=== PATIENT | female | born 1950 | race Caucasian/White ===

== ENCOUNTER → 2018-05-24 12:31 | Outpatient (CLI) | payer MEDICARE, OTHER, SELFPAY ==
--- NOTE | 2018-05-24 12:42 | BI_ITS ---
MAMMOGRAPHY - BILATERAL SCREENING REASON FOR EXAM: Female, 67 years old. Routine annual screening examination. PERTINENT HISTORY: Non-contributory. Nonspecific left breast pain. TECHNIQUE: Digital bilateral breast theo (3D mammographic acquisition) in the CC and MLO projections. 2-D mediolateral oblique (MLO) and craniocaudad (CC) views of both breasts were obtained. CAD: Full Field Digital Mammography with Computer Added Detection was performed. COMPARISON: Comparison is made with prior study dated February 09, 2017. FINDINGS: Breast Composition: The breasts are heterogeneously dense, which may obscure small masses. There are no dominant masses or suspicious calcifications. Benign appearing bilateral axillary lymph nodes. No other significant abnormalities are identified. There has been no significant change since the prior study. BI/SCREENING MAMM (CAD), BILAT IMPRESSION: Stable bilateral screening mammogram. Yearly follow-up mammogram recommended. (A) ASSESSMENT CATEGORY: BIRADS Category 2: Benign. A letter regarding these results will be sent to the patient by the facility within 30 days. Approximately 10% of breast cancers are not detected by mammography. A normal mammogram should not delay biopsy of a clinically suspicious abnormality. [id number] Electronically Signed: Kei Falcon MD at 13:41 EDT Tel [phone], Service support ,
== END ==
PROVIDERS: Family Provider Preventive Medicine Occupational Medicine; PCP Preventive Medicine Occupational Medicine; Visit Provider Preventive Medicine Occupational Medicine
DX: Z12.31 Encounter for screening mammogram for malignant neoplasm of breast (principal)
CPT/HCPCS: 77063; 77067

== ENCOUNTER → 2018-05-31 09:16 | Outpatient (CLI) | payer MEDICARE, OTHER, SELFPAY ==
--- NOTE | 2018-05-31 09:29 | BD_ITS ---
STUDY: DUAL ENERGY X-RAY ABSORPTIOMETRY / DXA REASON FOR EXAM: Female, 67 years old. Early menopause. Loss of height. TECHNIQUE: Bone Mineral Density (BMD) measurements of lumbar spine and bilateral hips were obtained. COMPARISON: Comparison is made with prior study dated December 05, 2013. FINDINGS: Lumbar Spine (L1-L4): g/cm2 (0.872) / T-score (-2.7) / Z-score (-1.1) Findings are suggestive of osteoporosis with a high fracture risk. Increased kyphosis. Left Femur Total: g/cm2 (0.787) / T-score (-1.8) / Z-score (-0.4) Left Femoral Neck: g/cm2 (0.772) / T-score (-1.9) / Z-score (-0.3) Right Femur Total: g/cm2 (0.772) / T-score (-1.9) / Z-score (-0.5) Right Femoral Neck: g/cm2 (0.716) / T-score (-2.3) / Z-score (0.7) The T-Scores on the most recent prior examination were: Lumbar Spine (L1-L4): There has been improvement of bone density since the previous examination. Left Femur Total: which represents an improvement of 2.3%. Right Femur Total: which represents a worsening of 0.9%. BD/Dexa Bone Density Study IMPRESSION: The patient is considered osteoporotic as outlined below according to World San[employer] Organization (WHO) criteria with a high fracture risk. There has been improvement of bone density since the previous examination. Reference Information: The T-score is the number of standard deviations above or below the standard which is normal for young adults at their peak bone mineral density. The World Health Organization (WHO) interprets the T-scores as follows: Above -1 Normal bone density Between -1 and -2.5 Osteopenia Equal to / or below -2.5 Osteoporosis As a practical clinical guideline, osteopenia may be graded as follows: Mild -1 through -1.5 Moderate -1.6 through -2.0 Severe -2.1 through -2.4 The Z-score is the number of standard deviations above or below age-matched controls. A Z-score of less than -1.5 would be considered abnormal. References: 1. NIH Osteoporosis and Related Bone Diseases http://www.osteo.org 2. International Society for Clinical Densitometry http://www.iscd.org 3. National Osteoporosis Foundation http://www.nof.org Electronically Signed: Kei Falcon MD at 14:39 EDT Tel [phone], Service support ,
== END ==
PROVIDERS: Family Provider Preventive Medicine Occupational Medicine; PCP Preventive Medicine Occupational Medicine; Visit Provider Preventive Medicine Occupational Medicine
DX: M81.0 Age-related osteoporosis without current pathological fracture (principal)
CPT/HCPCS: 77080

== ENCOUNTER 2019-07-07 11:30 | Inpatient (IN) | payer MEDICARE, OTHER, SELFPAY ==
[2019-07-07 11:31] VITALS: BP 107/56; PULSE 65; RESP 17; TEMP 36.8; O2SAT 96; BMI 23.8
--- NOTE | 2019-07-07 12:27 | CT_ITS ---
STUDY: CT ABDOMEN AND PELVIS WITHOUT CONTRAST REASON FOR EXAM: Female, 68 years old. One-week history of abdominal pain and diarrhea. RADIATION DOSAGE (If Supplied By Facility): CTDIvol = ( 14.62 ) mGy, DLP = ( 675.66 ) mGycm TECHNIQUE: Transaxial images were obtained from the dome of the diaphragm to the symphysis pubis without oral contrast, and without intravenous contrast. Sagittal and coronal images were reconstructed. Individualized dose optimization techniques were used for this CT. COMPARISON: None. FINDINGS: Minimal degree of increased markings at the lung bases suggestive of scarring and/or atelectasis. Coronary artery calcification. Normal liver. There are surgical clips in the gallbladder fossa consistent with a prior cholecystectomy. Normal spleen. Normal pancreas. Normal bilateral adrenal glands. Normal right kidney. Normal left kidney. Surgical clips are seen in the epigastric region. Normal small intestine. There are scattered colonic diverticula consistent with diverticulosis. There is non-visualization of the appendix. There is scattered atherosclerotic calcification of the abdominal aorta, without a demonstrated aneurysm. Normal inferior vena cava. Normal retroperitoneum. Normal urinary bladder. There is absence of the uterus consistent with a prior hysterectomy. There is a small umbilical hernia containing fat. Normal osseous structures. CT/Abdomen/Pelvis without Cont IMPRESSION: Mild degree of bibasilar linear scarring. Surgical clips are seen in the epigastric region. Scattered sigmoid diverticula. Electronically Signed: Kei Falcon, at 13:23 EDT , Service support ,
[2019-07-07] MEDS: 0.9% Normal Saline 1,000 ML 1000 ML IV (12:39)
[2019-07-07] MEDS: Ondansetron 4 MG/2 ML Vial IV (12:39)
[2019-07-07 12:44] LABS: Absolute Lymphocyte Count 1.82 X10^3/uL (0.83-4.51); Absolute Neutrophil Count 17.6 X10^3/uL (2.0-7.7); Basophil# 0.17 X10^3/uL; Basophil% 0.8 % (0-1); Eosinophil# 0.22 X10^3/uL; Hematocrit 37.7 % (37-47); Hemoglobin 12.7 g/dL (12.0-15.0); Lymphocyte # 1.82 X10^3/ul (4.0); Lymphocyte % 8.2 % (19-41); Mean Corp Hgb Conc 33.7 g/dL (32-36); Mean Corpuscular Hgb 30.5 pg (27.0-32.0); Mean Corpuscular Volume 90.6 fL (81-99); Mean Platelet Vol. 9.8 fl (6.2-12.0); Monocyte% 10.3 % (0-10); NRBC Flagged by Analyzer 0 % (0-5); Neutrophil # 17.58 X10^3/uL (2.7-7.7); POSITIVE DIFFERENTIAL YES; Platelet Count 315 K/mm3 (150-450); RBC Distribution Width CV 12.8 % (11.6-14.6); RBC Distribution Width SD 42.3 fl (35.1-43.9); Red Blood Count 4.16 M/mm3 (4.2-5.4); White Blood Count 22.3 K/mm3 (4.4-11.0)
--- NOTE | 2019-07-07 12:44 | ED.VIS.GEN ---
History of Present Illness Chief Complaint: Diarrhea Narrative: 68-year-old female presents with diarrhea for the past 4 days. She was on amoxicillin for 4 days for an upper respiratory infection prior to this but no other recent antibiotics. No unusual food intake or recent travel. No other household members are ill. She has had fairly constant diarrhea for the several days. She started to feel better yesterday but then returned today. On the first day of illness she also had a fever as high of 102 but this has not recurred. She is having left lower abdominal pain with this. The stool is loose and watery, no obvious blood. She is nauseated but not vomiting. Current severity is moderate. Capacity - Capacity Assessment Tool Can the patient make a choice & communicate that choice?: Yes Past Medical History - Allergies and Home Meds Allergies/Adverse Reactions: Allergies codeine Allergy (Verified 07/07/19 11:31) Rash ibandronate sodium [From Boniva] Adverse Reaction (Verified 07/07/19 11:31) EXTREME GERD Prior records reviewed: Yes Surgical History: - - cholecystectemy, hiatal hernia. Smoking Status: Never smoker - Family History Maternal Family History: Reports: - - mother had a stroke when she was 90 Paternal Family History: Reports: - - father was healthy Review of Systems General: Reports: Fever, Malaise. Denies: Chills, Sweats Eyes: Denies: Visual changes - bilaterally, Diplopia ENT: Denies: Rhinorrhea, Sore throat Cardiovascular: Denies: Chest pain, Palpitations Respiratory: Denies: Dyspnea, Cough, Dyspnea on exertion Gastrointestinal: Reports: Abdominal pain, Nausea, Diarrhea. Denies: Vomiting, Melena, Hematochezia Genitourinary: Denies: Dysuria, Hematuria, Frequency Musculoskeletal: Denies: Back pain, Extremity Pain Skin: Denies: Rash, Wounds Neurological: Denies: Headache, Weakness, Numbness Physical Exam Vital Signs/Narrative: Vital Signs Temp Pulse Resp BP Pulse Ox 07/07/19 11:31 98.3 F 65 17 107/56 L 96 General: Well nourished, Well developed, No Acute Distress, Acute Distress Head: Normocephalic, Atraumatic Eyes: Perrl, EOMI ENT: No rhinorrhea, Dry mucous membranes Neck: Supple, Nontender Cardiovascular: Regular rate, Regular rhythm, No murmurs Respiratory: No distress, CTA bilaterally, Chest nontender Abdomen: Soft, Nontender, Nondistended, Normal bowel sounds Back: Nontender, Normal Inspection Extremities: Nontender, No edema Skin: Normal color, No rash Neurological: Alert, Oriented x3, Cranial nerves II-XII grossly intact, Normal Strength, Normal Sensation Psychological: Normal affect, Normal Mood Diagnostic/Tx/Re-eval - Medical Decision Making She has a white blood cell count of 22,000. Her urine does not appear infected. Lung bases are clear on her abdominal CT. No obvious other acute process on abdominal CT but she does have significant diarrhea after antibiotics raising the concern for C. difficile with her leukocytosis. She is acutely weak and appears dehydrated. She has not comfortable discharge home and I feel that she has a very high pretest probability of C. difficile. I discussed the case with the hospitalist and we will admit medically. Antibiotics will be ordered by the hospitalist. ED Disposition - Plan for ED Patient: Disposition: Acute Care Hospital [facility] Diagnosis: Dehydration, Diarrhea, Acute weakness, C. difficile colitis
[2019-07-07 12:47] LABS: Differential Indicated SCAN CRITERIA MET
[2019-07-07 13:00] LABS: ALB/GLOB Ratio 0.9 RATIO (0.9-2.4); AST(SGOT) 26 U/L (15-37); Alanine Aminotransfer ALT/SGPT 56 U/L (13-56); Albumin, Serum 3.4 g/dL (3.2-5.0); Alkaline Phosphatase 160 U/L (45-117); Anion Gap 6 (5-15); BUN 14 mg/dL (7-18); BUN/Creat Ratio 18.5 RATIO (10-20); Calcium,Total 8.8 mg/dL (8.5-10.1); Chloride 101 mmol/L (98-107); Creatinine, Serum 0.76 mg/dL (0.55-1.02); EST Glomerular Filtration Rate 81 mL/min (>60); Est Glom Filt Rate - Afr Amer 98 mL/min (>60); Estimated Creatinine Clearance 50.41 ml/min; Globulin 3.6 g/dL (2.2-4.2); Glucose 110 mg/dL (74-106); Potassium 3.3 mmol/L (3.5-5.1); Sodium Level 136 mmol/L (136-145)
[2019-07-07 13:16] LABS: Platelet Estimate ADEQUATE (ADEQ); Red Cell Morphology NORM C+C NORMAL (NORM C&C)
[2019-07-07 14:47] LABS: Bacteria 0 SEEN /hpf (None Seen); Mucous, Urine 0 SEEN /hpf (<or=2+); Red Blood Cells-Urine 0 SEEN /hpf (0-5); Squamous Epithelial Cells - UA 0 SEEN /hpf (5-10); White Blood Cells 0 SEEN /hpf (0-5)
[2019-07-07 14:49] VITALS: BP 106/57; O2SAT 95
[2019-07-07 14:50] LABS: Color, Urine Yellow (Yellow); Glucose, Dipstick Normal (Normal); Ketone-Dipstick Negative (Negative); Leukocyte Esterase-Dipstick Negative /ul (Negative); Nitrite-Dipstick Negative (Negative); Occult Blood-Urine Negative /ul (Negative); Protein-Dipstick Negative (Negative); Specific Gravity, Urine 1.005 (1.002-1.030); Urine Bilirubin Dipstick Negative (Negative); Urine Clarity Clear (Clear); Urine Urobilinogen Normal (Normal); Urine pH 6.5 (5.0 - 8.0)
[2019-07-07] MEDS: Acetaminophen 325 MG Tablet 650 MG PO ×2 (15:05→23:36)
--- NOTE | 2019-07-07 15:45 | HP.PCM_ITS ---
<Grace Rothman - Last Filed: 07/07/19 16:25> Problem List (1) Fibromyalgia Status: Chronic (2) GERD (gastroesophageal reflux disease) Status: Chronic History of Present Illness Date of Admission: 07/07/19 Chief Complaint: Diarrhea. The patient is a 68 year old F who presents emergency room due to diarrhea. Patient reports she has had intractable diarrhea since Wednesday evening. Patient reports last week she was started on amoxicillin for sinus infection. She stopped this on Wednesday due to thinking it may be contributing to her diarrhea. She complains of abdominal tenderness and cramping, fever, chills and nausea. She denies emesis. Denies blood in stool. She denies history of C. difficile. She has a past medical history of osteoporosis, anxiety, depression and fibromyalgia. Denies other past medical history. Past Medical History Past Medical History (Chronic Problems): Chronic Problems Fibromyalgia (Chronic) GERD (gastroesophageal reflux disease) (Chronic) Allergies codeine Allergy (Verified 07/07/19 11:31) Rash ibandronate sodium [From Boniva] Adverse Reaction (Verified 07/07/19 11:31) EXTREME GERD Home Medications: Ambulatory Orders Medication Instructions Recorded Alendronate Sodium 70 mg PO MO 07/07/19 Calcium Carbonate [Calcium] 1,200 mg PO DAILY 07/07/19 Cholecalciferol (VIT D3) [Vitamin 1,000 unit PO DAILY 07/07/19 D] Duloxetine Hcl [Cymbalta] 30 mg PO DAILY@0800 07/07/19 Duloxetine Hcl [Cymbalta] 60 mg PO DAILY@2000 07/07/19 Loperamide [Imodium] 4 mg PO DAILY 07/07/19 Lorazepam 0.5 mg PO DAILY PRN 07/07/19 Multivitamin with Minerals 1 tab PO DAILY 07/07/19 [Multiple Vitamin] Surgical History: - - cholecystectemy, hiatal hernia, hysterectomy, cataract surgery. 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 Denies: Weight Change HEENT: Denies: Head Aches, Sinus Congestion, Sinus Drainage Cardiovascular: Denies: Chest Pain, Edema, Palpitations, Syncope Gastrointestinal: Reports: Abdominal Pain, Diarrhea, Nausea. Denies: Vomiting Genitourinary: Denies: Dysuria Musculoskeletal: Denies: Joint Pain, Joint Tenderness Skin: Denies: Rash, Wounds Neurological: Denies: Numbness, Tingling, Focal weakness Psychiatric: Reports: Anxiety, Depression Hematologic/ Lymphatic: Denies: Easy Bruising, Easy Bleeding VTE Information - Inpt Only VTE Present on Admission: No VTE Mechan Device Prophylaxis: None VTE Pharm Prophylaxis ordered?: Yes - Physical Exam Vitals/I&O's: Vital Signs Temp Pulse Resp BP Pulse Ox 98.3 F 65 17 106/57 L 95 07/07/19 11:31 07/07/19 11:31 07/07/19 11:31 07/07/19 14:49 07/07/19 14:49 Oxygen Delivery Method Room Air Weight: 147 lb 14.883 oz Body Mass Index (BMI) 23.8 Intake and Output for Last 24 Hours 07/05/19 07/06/19 07/07/19 23:59 23:59 23:59 Intake Total 1000 / 1000 Balance 1000 / 1000 General: Alert, Oriented x3, Cooperative HEENT: Atraumatic, PERRLA, EOMI, Normocephalic Oral: Dry Mucosa Neck: Supple, No JVD, Negative Carotid Bruits Lungs: Clear to auscultation, Normal air movement Cardiovascular: Regular rate, Regular Rhythm, Normal S1, Normal S2, No murmurs Abdomen: Bowel Sounds Present, Soft, Non-Distended, Tender Extremities: No clubbing, No cyanosis, No edema, Capillary Refill Less than 3 Seconds Skin: No rashes, No breakdown Musculoskeletal: No Tenderness to Palpation of Joints or Extremities Neurological: Cranial nerves II-XII grossly intact, Neuro grossly intact Psych/Mental Status: Normal Affect Laboratory Results 07/07/19 12:32: WBC 22.3 H, RBC 4.16 L, Hgb 12.7, Hct 37.7, MCV 90.6, MCH 30.5, MCHC 33.7, RDW Std Deviation 42.3, RDW Coeff of Nellie 12.8, Plt Count 315, MPV 9.8, Immature Gran % (Auto) 0.700, Neut % (Auto) 79.0 H, Lymph % (Auto) 8.2 L, Candler % (Auto) 10.3 H, Eos % (Auto) 1.0, Baso % (Auto) 0.8, Absolute Neuts (auto) 17.6 H, Absolute Lymphs (auto) 1.82, Nucleated RBC % 0, Diff Path Review January foll, Platelet Estimate ADEQUATE, RBC Morphology NORM C+C 07/07/19 12:32: Sodium 136, Potassium 3.3 L, Chloride 101, Carbon Dioxide 29.0, Anion Gap 6, BUN 14, Creatinine 0.76, Estim Creat Clear Calc 50.41, Est GFR (MDRD) Af Amer 98, Est GFR (MDRD) Non-Af 81, BUN/Creatinine Ratio 18.5, Glucose 110 H, Calcium 8.8, Total Bilirubin 0.80, AST 26, ALT 56, Alkaline Phosphatase 160 H, Total Protein 7.0, Albumin 3.4, Globulin 3.6, Albumin/Globulin Ratio 0.9 07/07/19 14:41: Urine Color Yellow, Urine Clarity Clear, Urine pH 6.5, Ur Specific Paisley 1.005, Urine Protein Negative, Urine Glucose (UA) Normal, Urine Ketones Negative, Urine Occult Blood Negative, Urine Nitrite Negative, Urine Bilirubin Negative, Urine Urobilinogen Normal, Ur Leukocyte Esterase Negative, Urine RBC 0 SEEN, Urine WBC 0 SEEN, Ur Squamous Epith Cells 0 SEEN, Urine Bacteria 0 SEEN, Urine Mucus 0 SEEN Assessment/Plan 1. Intractable diarrhea-possible C. difficile given recent antibiotic use for upper respiratory infection. Check stool for C. difficile, enteric pathogen. IV fluids. Clear liquid diet. CT of abdomen pelvis on admission shows no acute process. 2. Mild hypokalemia-secondary to #1. Replace per protocol, trend BMP. 3. Leukocytosis-suspect reactive. Afebrile. IV fluids, repeat CBC in a.m. 4. Osteoporosis-continue vitamin D/calcium/alendronate regimen. 5. Fibromyalgia-continue home medication regimen. 6. Anxiety/depression-continue home duloxetine and PRN lorazepam regimen. DVT prophylaxis- Lovenox sc This patient was seen by SAGAR Ferguson under the supervision of Dr. Webster. <Siena Webster - Last Filed: 07/07/19 16:32> History of Present Illness The patient is a 68 year old F [] Past Medical History Allergies codeine Allergy (Verified 07/07/19 11:31) Rash ibandronate sodium [From Boniva] Adverse Reaction (Verified 07/07/19 11:31) EXTREME GERD - Physical Exam Vitals/I&O's: Vital Signs Temp Pulse Resp BP Pulse Ox 98.3 F 60 14 103/55 L 97 07/07/19 15:57 07/07/19 15:57 07/07/19 15:57 07/07/19 15:57 07/07/19 15:57 Oxygen Delivery Method Room Air Weight: 147 lb 14.883 oz Body Mass Index (BMI) 23.8 Intake and Output for Last 24 Hours 07/05/19 07/06/19 07/07/19 23:59 23:59 23:59 Intake Total 1000 / 1000 Balance 1000 / 1000 Laboratory Results 07/07/19 12:32: WBC 22.3 H, RBC 4.16 L, Hgb 12.7, Hct 37.7, MCV 90.6, MCH 30.5, MCHC 33.7, RDW Std Deviation 42.3, RDW Coeff of Nellie 12.8, Plt Count 315, MPV 9.8, Immature Gran % (Auto) 0.700, Neut % (Auto) 79.0 H, Lymph % (Auto) 8.2 L, Candler % (Auto) 10.3 H, Eos % (Auto) 1.0, Baso % (Auto) 0.8, Absolute Neuts (auto) 17.6 H, Absolute Lymphs (auto) 1.82, Nucleated RBC % 0, Diff Path Review January, Platelet Estimate ADEQUATE, RBC Morphology NORM C+C 07/07/19 12:32: Sodium 136, Potassium 3.3 L, Chloride 101, Carbon Dioxide 29.0, Anion Gap 6, BUN 14, Creatinine 0.76, Estim Creat Clear Calc 50.41, Est GFR (MDRD) Af Amer 98, Est GFR (MDRD) Non-Af 81, BUN/Creatinine Ratio 18.5, Glucose 110 H, Calcium 8.8, Total Bilirubin 0.80, AST 26, ALT 56, Alkaline Phosphatase 160 H, Total Protein 7.0, Albumin 3.4, Globulin 3.6, Albumin/Globulin Ratio 0.9 10/25/19 14:41: Urine Color Yellow, Urine Clarity Clear, Urine pH 6.5, Ur Specific Paisley 1.005, Urine Protein Negative, Urine Glucose (UA) Normal, Urine Ketones Negative, Urine Occult Blood Negative, Urine Nitrite Negative, Urine Bilirubin Negative, Urine Urobilinogen Normal, Ur Leukocyte Esterase Negative, Urine RBC 0 SEEN, Urine WBC 0 SEEN, Ur Squamous Epith Cells 0 SEEN, Urine Bacteria 0 SEEN, Urine Mucus 0 SEEN Assessment/Plan Patient seen by Grace KEITH under my supervision Patient is a 68 y.o admitted with a complaint of diarrhea for the last 5 days. Diarrhea started after she ate out at a restaurant-5 guys. Other people ate the same meal but did not have any diarrhea. She had been on amoxicillin since 28 June for sinus infection and stopped it but they would residual started. She had assisted fever and chills and nausea but denied any vomiting. Review of systems otherwise negative. She is never had C. difficile before. Labs and vitals reviewed. Vitals were essentially stable and chemistry was significant for potassium of 3.3. White cell count was elevated at 22.3. T of the abdomen and pelvis showed scattered sigmoid diverticula but was otherwise negative. She has been admitted to be managed for intractable diarrhea, likely infectious in etiology. o/e: Vital Signs Height 5 ft 6 in Weight: 147 lb 14.883 oz Weight in Pounds 147.9 lbs Pulse Ox 97 Temperature 98.3 F Pulse Rate 60 Respiratory Rate 14 Blood Pressure 103/55 General: Alert, Oriented x3, Cooperative HEENT: Atraumatic, PERRLA, EOMI, Normocephalic Oral: Dry Mucosa Neck: Supple, No JVD, Negative Carotid Bruits Lungs: Clear to auscultation, Normal air movement Cardiovascular: Regular rate, Regular Rhythm, Normal S1, Normal S2, No murmurs Abdomen: Bowel Sounds Present, Soft, Non-Distended, minimal tenderness, no guarding or rebound tenderness Extremities: No clubbing, No cyanosis, No edema, Capillary Refill Less than 3 Seconds Skin: No rashes, No breakdown Musculoskeletal: No Tenderness to Palpation of Joints or Extremities Neurological: Cranial nerves II-XII grossly intact, Neuro grossly intact Psych/Mental Status: Normal Affect Plan is to admit to [facility]. Start on clear liquids for now and advance as tolerated. Check stool for enteric pathogen and ova and parasites. Check C. difficile. Give IV ciprofloxacin and IV metronidazole. Replace potassium. Check magnesium as well. Rest of management as per Grace Rothman NP-Nathan's note which I reviewed and endorsed. Code Visit OBSV E&M: 12166 Initial observation care L2
[2019-07-07 15:56] VITALS: BMI 23.9
[2019-07-07 15:57] VITALS: BP 103/55; PULSE 60; RESP 14; TEMP 36.8; O2SAT 97
[2019-07-07 16:25] VITALS: BMI 23.9
[2019-07-07 16:40] VITALS: BP 102/49; PULSE 59; RESP 18; O2SAT 95
[2019-07-07] MEDS: Ketorolac 15 MG/ML Vial IV (17:52)
[2019-07-07 18:14] VITALS: BP 91/52; PULSE 56; RESP 16; TEMP 37.2; O2SAT 97
[2019-07-07] MEDS: Ciprofloxacin 400 MG/200 ML BAG 200 MG IV (18:32)
[2019-07-07 18:49] LABS: Magnesium 1.8 mg/dL (1.6-2.6)
[2019-07-07] MEDS: 0.9% Saline Lock 10 ML Syringe IV (18:51)
[2019-07-07] MEDS: 0.9% Normal Saline 1,000 ML 125 ML IV (18:51)
[2019-07-07] MEDS: DULoxetine Hcl 30 MG Capsule 60 MG PO (19:48)
[2019-07-07] MEDS: metroNIDAZOLE 500 MG/100 ML BAG 100 MG IV (19:48)
[2019-07-07 23:19] VITALS: BP 95/47; PULSE 58; RESP 16; TEMP 36.6; O2SAT 95
[2019-07-07] MEDS: LORazepam 0.5 MG Tablet PO (23:36)
--- NOTE | 2019-07-08 03:01 | PCM.PN.BLA ---
Progress Note Notified blood that C. difficile test returned positive. Will discontinue IV ciprofloxacin and IV Flagyl. Vancomycin p.o. ordered. Put on isolation, contact. STROKE Vital Signs/Narrative: Vital Signs Temp Pulse Resp BP Pulse Ox 07/07/19 23:19 98 F 58 L 16 95/47 L 95
[2019-07-08 04:17] VITALS: BP 95/49; PULSE 60; RESP 16; TEMP 36.5; O2SAT 93
[2019-07-08] MEDS: 0.9% Normal Saline 1,000 ML 125 ML IV ×3 (04:23→21:08)
[2019-07-08 07:46] LABS: Absolute Lymphocyte Count 1.38 X10^3/uL (0.83-4.51); Absolute Neutrophil Count 7.8 X10^3/uL (2.0-7.7); Basophil# 0.09 X10^3/uL; Basophil% 0.8 % (0-1); Eosinophil# 0.46 X10^3/uL; Eosinophils% 4.2 % (0-5); Hematocrit 32.6 % (37-47); Hemoglobin 10.6 g/dL (12.0-15.0); Lymphocyte # 1.38 X10^3/ul (4.0); Lymphocyte % 12.7 % (19-41); Mean Corp Hgb Conc 32.5 g/dL (32-36); Mean Corpuscular Hgb 29.9 pg (27.0-32.0); Mean Corpuscular Volume 92.1 fL (81-99); Mean Platelet Vol. 10.3 fl (6.2-12.0); Monocyte# 1.07 X10^3/uL; Monocyte% 9.8 % (0-10); NRBC Flagged by Analyzer 0 % (0-5); Neutrophil # 7.75 X10^3/uL (2.7-7.7); Neutrophil % 71.2 % (47-70); Platelet Count 244 K/mm3 (150-450); RBC Distribution Width CV 12.9 % (11.6-14.6); RBC Distribution Width SD 43.8 fl (35.1-43.9); Red Blood Count 3.54 M/mm3 (4.2-5.4); White Blood Count 10.9 K/mm3 (4.4-11.0)
[2019-07-08 08:11] LABS: Anion Gap 4 (5-15); BUN 9 mg/dL (7-18); BUN/Creat Ratio 15.4 RATIO (10-20); Calcium,Total 8.1 mg/dL (8.5-10.1); Chloride 112 mmol/L (98-107); Creatinine, Serum 0.58 mg/dL (0.55-1.02); EST Glomerular Filtration Rate 109 mL/min (>60); Est Glom Filt Rate - Afr Amer 132 mL/min (>60); Estimated Creatinine Clearance 50.41 ml/min; Glucose 93 mg/dL (74-106); Potassium 3.8 mmol/L (3.5-5.1); Sodium Level 139 mmol/L (136-145)
[2019-07-08 08:45] VITALS: BP 105/64; PULSE 64; RESP 16; TEMP 36.7; O2SAT 97
[2019-07-08] MEDS: Calcium Carbonate 500 MG Tablet 1000 MG PO (08:46)
[2019-07-08] MEDS: Multivitamins,Ther W-Minerals Tablet 1 TABLET PO (08:47)
[2019-07-08] MEDS: DULoxetine Hcl 30 MG Capsule PO (08:52)
--- NOTE | 2019-07-08 13:44 | PN_ITS ---
<Grace Rothman - Last Filed: 07/08/19 13:59> Patient Problems: Active and Suspected Problems Dehydration (Acute) Diarrhea (Acute) Acute weakness (Acute) C. difficile colitis (Acute) Subjective: Patient seen and examined. Continues to have frequent diarrhea. Also reports abdominal tenderness. Denies nausea, vomiting. Denies fever, chills. - Physical Exam Vitals/I&O's: Vital Signs Temp Pulse Resp BP Pulse Ox 98.1 F 64 16 105/64 97 07/08/19 08:45 07/08/19 08:45 07/08/19 08:45 07/08/19 08:45 07/08/19 08:45 Oxygen Delivery Method Room Air Weight: 148 lb 2.41 oz Body Mass Index (BMI) 23.9 Intake and Output for Last 24 Hours 07/06/19 07/07/19 07/08/19 23:59 23:59 23:59 Intake Total 1431.25 / 1731.25 2668.75 / 2668.75 Balance 1431.25 / 1731.25 2668.75 / 2668.75 General: Alert, Oriented x3, Cooperative HEENT: Atraumatic, PERRLA, EOMI, Normocephalic Neck: Supple, No JVD, Negative Carotid Bruits Lungs: Clear to auscultation, Normal air movement Cardiovascular: Regular rate, Regular Rhythm, Normal S1, Normal S2, No murmurs Abdomen: Bowel Sounds Present, Soft, Non-Distended, Tender Extremities: No clubbing, No cyanosis, No edema, Capillary Refill Less than 3 Seconds Skin: No rashes, No breakdown Musculoskeletal: No Tenderness to Palpation of Joints or Extremities Neurological: Cranial nerves II-XII grossly intact, Neuro grossly intact Psych/Mental Status: Normal Affect, Appropriate Microbiology Past 72 Hours 07/07/19 23:15 Stool Enteric Bacteriology - Final 07/07/19 23:15 Stool C. difficile DNA Amplification - Final Toxigenic C. difficile DNA 07/07/19 23:15 Stool Stool Lactoferrin - Final Laboratory Results 07/07/19 12:32: Magnesium 1.8 07/07/19 14:41: Urine Color Yellow, Urine Clarity Clear, Urine pH 6.5, Ur Specific Elmore 1.005, Urine Protein Negative, Urine Glucose (UA) Normal, Urine Ketones Negative, Urine Occult Blood Negative, Urine Nitrite Negative, Urine Bilirubin Negative, Urine Urobilinogen Normal, Ur Leukocyte Esterase Negative, Urine RBC 0 SEEN, Urine WBC 0 SEEN, Ur Squamous Epith Cells 0 SEEN, Urine Bacteria 0 SEEN, Urine Mucus 0 SEEN 07/08/19 07:18: WBC 10.9, RBC 3.54 L, Hgb 10.6 L, Hct 32.6 L, MCV 92.1, MCH 29.9, MCHC 32.5, RDW Std Deviation 43.8, RDW Coeff of Nellie 12.9, Plt Count 244, MPV 10.3, Immature Gran % (Auto) 1.300 H, Neut % (Auto) 71.2 H, Lymph % (Auto) 12.7 L, [place] % (Auto) 9.8, Eos % (Auto) 4.2, Baso % (Auto) 0.8, Absolute Neuts (auto) 7.8 H, Absolute Lymphs (auto) 1.38, Nucleated RBC % 0 07/08/19 07:18: Sodium 139, Potassium 3.8, Chloride 112 H, Carbon Dioxide 23.0, Anion Gap 4 L, BUN 9, Creatinine 0.58, Estim Creat Clear Calc 50.41, Est GFR (MDRD) Af Amer 132, Est GFR (MDRD) Non-Af 109, BUN/Creatinine Ratio 15.4, Glucose 93, Calcium 8.1 L Current Medications Acetaminophen (Tylenol) 650 mg PO Q6H PRN PRN PRN Reason: Pain Score 1-3/Temp > 100.7 F Last Admin: 07/07/19 23:36 Dose: 650 mg Documented by: [facility]cium [facility] ([facility]) [facility] Last Admin: 07/08/19 08:46 Dose: 1,000 mg Documented by: Cholecalciferol (Vitamin D) [facility] Last Admin: 07/08/19 08:46 Dose: 1,000 unit Documented by: Duloxetine HCl (Cymbalta) 60 mg PO DAILY@2000 [facility] Last Admin: 07/07/19 19:48 Dose: 60 mg Documented by: Duloxetine HCl (Cymbalta) 30 mg PO DAILY@0800 [facility] Last Admin: 07/08/19 08:52 Dose: 30 mg Documented by: Sodium Chloride () 1,000 mls @ 125 mls/hr IV .Q8H [facility] Last Admin: 07/08/19 13:11 Dose: 125 mls/hr Documented by: Lorazepam (Ativan) 0.5 mg PO DAILY PRN PRN Reason: ANXIETY Last Admin: 07/07/19 23:36 Dose: 0.5 mg Documented by: Multivitamins/Minerals (Multivitamin With Minerals) 1 tablet PO DAILY@0800 [facility] Last Admin: 07/08/19 08:47 Dose: 1 tablet Documented by: Ondansetron HCl (Zofran) 4 mg IV Q8H PRN PRN PRN Reason: NAUSEA/VOMITING Sodium Chloride () 10 - 40 ml IV UD PRN PRN Reason: SALINE FLUSH Last Admin: 07/07/19 18:51 Dose: 10 ml Documented by: Vancomycin HCl () 125 mg PO Q6 [facility] Last Admin: 07/08/19 13:11 Dose: 125 mg Documented by: Medical Necessity - Tobacco Use Smoking Status: Current some day smoker Tobacco Use: Cigarettes Assessment/Plan All Active Problems Dehydration (Acute) Diarrhea (Acute) Acute weakness (Acute) C. difficile colitis (Acute) 1. Acute C. difficile colitis-continue oral vancomycin 125 mg every 6 hours. IV fluids. Clear liquid diet. CT of abdomen pelvis on admission shows no acute process. Leukocytosis resolved. 2. Mild hypokalemia-secondary to #1. Replaced per protocol, trend BMP. 3. Leukocytosis-suspect reactive. Afebrile. Resolved. 4. Osteoporosis-continue vitamin D/calcium/alendronate regimen. 5. Fibromyalgia-continue home medication regimen. 6. Anxiety/depression-continue home duloxetine and PRN lorazepam regimen. DVT prophylaxis-SCDs This patient was seen by SAGAR Ferguson under the supervision of Dr. Ramos. <Luis Ramos - Last Filed: 07/10/19 11:46> Subjective: Pt still has diarrhea. STOOL for C diff positive on Vanco po. No abdominal pain. Started on clear liquids - Physical Exam Vitals/I&O's: Vital Signs Temp Pulse Resp BP Pulse Ox 98.1 F 64 16 105/64 97 07/08/19 08:45 07/08/19 08:45 07/08/19 08:45 07/08/19 08:45 07/08/19 08:45 Oxygen Delivery Method Room Air Weight: 148 lb 2.41 oz Body Mass Index (BMI) 23.9 Intake and Output for Last 24 Hours 07/06/19 07/07/19 07/08/19 23:59 23:59 23:59 Intake Total 1431.25 / 1731.25 2668.75 / 2668.75 Balance 1431.25 / 1731.25 2668.75 / 2668.75 General: Alert, Oriented x3, Cooperative HEENT: Atraumatic, PERRLA, EOMI, Normocephalic Neck: Supple, No JVD, Negative Carotid Bruits Lungs: Clear to auscultation, Normal air movement, No rhonchi, No wheeze, No rales Cardiovascular: Regular rate, Normal S2, No murmurs Abdomen: Bowel Sounds Present, Soft, Non Tender, Non-Distended Extremities: No edema, Capillary Refill Less than 3 Seconds Skin: No rashes, No breakdown Musculoskeletal: No Tenderness to Palpation of Joints or Extremities, Arthritic Changes Neurological: Cranial nerves II-XII grossly intact, Neuro grossly intact, Motor Exam 5/5 strength throughout Psych/Mental Status: Normal Affect, Appropriate Microbiology Past 72 Hours 07/07/19 23:15 Stool Enteric Bacteriology - Final 07/07/19 23:15 Stool C. difficile DNA Amplification - Final Toxigenic C. difficile DNA 07/07/19 23:15 Stool Stool Lactoferrin - Final Laboratory Results 07/07/19 12:32: Magnesium 1.8 07/08/19 07:18: WBC 10.9, RBC 3.54 L, Hgb 10.6 L, Hct 32.6 L, MCV 92.1, MCH 29.9, MCHC 32.5, RDW Std Deviation 43.8, RDW Coeff of Nellie 12.9, Plt Count 244, MPV 10.3, Immature Gran % (Auto) 1.300 H, Neut % (Auto) 71.2 H, Lymph % (Auto) 12.7 L, [place] % (Auto) 9.8, Eos % (Auto) 4.2, Baso % (Auto) 0.8, Absolute Neuts (auto) 7.8 H, Absolute Lymphs (auto) 1.38, Nucleated RBC % 0 07/08/19 07:18: Sodium 139, Potassium 3.8, Chloride 112 H, Carbon Dioxide 23.0, Anion Gap 4 L, BUN 9, Creatinine 0.58, Estim Creat Clear Calc 50.41, Est GFR (MDRD) Af Amer 132, Est GFR (MDRD) Non-Af 109, BUN/Creatinine Ratio 15.4, Glucose 93, Calcium 8.1 L Current Medications Acetaminophen (Tylenol) 650 mg PO Q6H PRN PRN PRN Reason: Pain Score 1-3/Temp > 100.7 F Last Admin: 07/07/19 23:36 Dose: 650 mg Documented by: Calcium Carbon[facility] ([facility]) [facility] Last Admin: 07/08/19 08:46 Dose: 1,000 mg Documented by: Cholecalciferol (Vitamin D) [facility] Last Admin: 07/08/19 08:46 Dose: 1,000 unit Documented by: Duloxetine HCl (Cymbalta) 60 mg PO DAILY@2000 [facility] Last Admin: 07/07/19 19:48 Dose: 60 mg Documented by: Duloxetine HCl (Cymbalta) 30 mg PO DAILY@0800 [facility] Last Admin: 07/08/19 08:52 Dose: 30 mg Documented by: Sodium Chloride () 1,000 mls @ 125 mls/hr IV .Q8H [facility] Last Admin: 07/08/19 13:11 Dose: 125 mls/hr Documented by: Lorazepam (Ativan) 0.5 mg PO DAILY PRN PRN Reason: ANXIETY Last Admin: 07/07/19 23:36 Dose: 0.5 mg Documented by: Multivitamins/Minerals (Multivitamin With Minerals) 1 tablet PO DAILY@0800 [facility] Last Admin: 07/08/19 08:47 Dose: 1 tablet Documented by: Ondansetron HCl (Zofran) 4 mg IV Q8H PRN PRN PRN Reason: NAUSEA/VOMITING Sodium Chloride () 10 - 40 ml IV UD PRN PRN Reason: SALINE FLUSH Last Admin: 07/07/19 18:51 Dose: 10 ml Documented by: Vancomycin HCl () 125 mg PO Q6 [facility] Last Admin: 07/08/19 13:11 Dose: 125 mg Documented by: Assessment/Plan This patient was seen in conjunction with CREW FOREMANGrace. I have independently interviewed and examined the patient and reviewed pertinent history, examination findings, laboratory and plan of management. I have reviewed the note and agree with the documented findings with the few additional points. In brief, patient is admitted for acute C diff colitis. No prior history of C diff. No leucocytosis or abd tenderness. On Vanco 125 mg q 6 hrly. Mild hypokalemia resolved. Discussed with patient and her regarding C diff who is SNF nurse and educated about C diff clinical course, contact precaution and hand hygiene. Rest of comorbidities addressed as mentioned above. I have discussed my assessment with CREW FOREMANGrace and orders have been reviewed. Code Visit Inpatient E&M: 97144 Subs Hosp L2
--- NOTE | 2019-07-08 14:45 | CASEMGMT ---
RN CM Face to Face with patient for initial transition planning/care coordination assessment. RN CM introduced self and role at [facility]. Patient lying in bed, alert and oriented. Patient willing to participate in assessment and is able to answer all questions appropriately. Care providers, pharmacy, and demographics verified. Patient wishes to discharge home, denies need for home health at this time. Patient states she has no further needs or concerns at this time. CM to follow for discharge planning needs that may arise. PCP: Kyleigh Specialists: ANAMARIA Matos [facility] Pres[facility] Benefit: Yes Living Will/HPOA: yes, Son Momo Powers LNOK: , son Living Arrangements: Patient lives with in 2 story home. Patient able to ambulate stairs. Patient independent at home. Transportation: self/ DME/HHC: Patient has cane, BSC, shower chair, and walker. No previous HHC or SNF RN CM called [facility] regarding script for Vancomycin capsule. No prior auth needed for medication, cost $43.50. Patient updated regarding prescription. Disposition Plan: Patient to discharge home with family support and follow-up plans in place. Moira COLBY, RN, CM
[2019-07-08 15:27] VITALS: BP 111/64; PULSE 59; RESP 18; TEMP 36.7; O2SAT 95
[2019-07-08] MEDS: DULoxetine Hcl 30 MG Capsule 60 MG PO (20:01)
[2019-07-08 21:30] VITALS: BP 115/58; PULSE 70; RESP 18; TEMP 37.1; O2SAT 96
[2019-07-09 03:30] VITALS: BP 121/57; PULSE 67; RESP 18; TEMP 36.5; O2SAT 98
[2019-07-09] MEDS: 0.9% Normal Saline 1,000 ML 125 ML IV ×3 (05:33→22:09)
[2019-07-09 08:52] VITALS: BP 121/72; PULSE 57; RESP 18; TEMP 36.9; O2SAT 97
[2019-07-09] MEDS: Calcium Carbonate 500 MG Tablet 1000 MG PO (08:54)
[2019-07-09] MEDS: Multivitamins,Ther W-Minerals Tablet 1 TABLET PO (08:54)
[2019-07-09] MEDS: DULoxetine Hcl 30 MG Capsule PO (08:54)
--- NOTE | 2019-07-09 09:42 | PCM.PROGNOTE ---
Patient Problems: Active and Suspected Problems Dehydration (Acute) Diarrhea (Acute) Acute weakness (Acute) C. difficile colitis (Acute) Subjective: Patient seen and examined. Complains of increased abdominal cramping. Continues to have diarrhea 1-2 times per hour. Denies nausea, vomiting. - Physical Exam Vitals/I&O's: Vital Signs Temp Pulse Resp BP Pulse Ox 98.5 F 57 L 18 121/72 H 97 07/09/19 08:52 07/09/19 08:52 07/09/19 08:52 07/09/19 08:52 07/09/19 08:52 Oxygen Delivery Method Room Air Weight: 148 lb 2.41 oz Body Mass Index (BMI) 23.9 Intake and Output for Last 24 Hours 07/07/19 07/08/19 07/09/19 23:59 23:59 23:59 Intake Total 1431.25 / 1731.25 4110.42 / 4360.42 1450 / 1450 Balance 1431.25 / 1731.25 4110.42 / 4360.42 1450 / 1450 General: Alert, Oriented x3, Cooperative HEENT: Atraumatic, PERRLA, EOMI, Normocephalic Neck: Supple, No JVD, Negative Carotid Bruits Lungs: Clear to auscultation, Normal air movement Cardiovascular: Regular rate, Regular Rhythm, Normal S1, Normal S2, No murmurs Abdomen: Bowel Sounds Present, Soft, Non Tender, Non-Distended Extremities: No clubbing, No cyanosis, No edema, Capillary Refill Less than 3 Seconds Skin: No rashes, No breakdown Musculoskeletal: No Tenderness to Palpation of Joints or Extremities Neurological: Cranial nerves II-XII grossly intact, Neuro grossly intact Psych/Mental Status: Normal Affect, Appropriate Microbiology Past 72 Hours 07/07/19 14:41 Urine, Clean Catch Urine Culture - Final Culture exhibits no growth. 07/07/19 23:15 Stool Enteric Bacteriology - Final 07/07/19 23:15 Stool C. difficile DNA Amplification - Final Toxigenic C. difficile DNA 07/07/19 23:15 Stool Stool Lactoferrin - Final Current Medications Acetaminophen (Tylenol) 650 mg PO Q6H PRN PRN PRN Reason: Pain Score 1-3/Temp > 100.7 F Last Admin: 07/07/19 23:36 Dose: 650 mg Documented by: [facility] ([facility]) [facility] Last Admin: 07/09/19 08:54 Dose: 1,000 mg Documented by: Cholecalciferol (Vitamin D) [facility] Last Admin: 07/09/19 08:55 Dose: 1,000 unit Documented by: Duloxetine HCl (Cymbalta) 60 mg PO DAILY@2000 [facility] Last Admin: 07/08/19 20:01 Dose: 60 mg Documented by: Duloxetine HCl (Cymbalta) 30 mg PO DAILY@0800 [facility] Last Admin: 07/09/19 08:54 Dose: 30 mg Documented by: Sodium Chloride () 1,000 mls @ 125 mls/hr IV .Q8H [facility] Last Admin: 07/09/19 05:33 Dose: 125 mls/hr Documented by: Lorazepam (Ativan) 0.5 mg PO DAILY PRN PRN Reason: ANXIETY Last Admin: 07/07/19 23:36 Dose: 0.5 mg Documented by: Multivitamins/Minerals (Multivitamin With Minerals) 1 tablet PO DAILY@0800 [facility] Last Admin: 07/09/19 08:54 Dose: 1 tablet Documented by: Ondansetron HCl (Zofran) 4 mg IV Q8H PRN PRN PRN Reason: NAUSEA/VOMITING Sodium Chloride () 10 - 40 ml IV UD PRN PRN Reason: SALINE FLUSH Last Admin: 07/07/19 18:51 Dose: 10 ml Documented by: Vancomycin HCl () 125 mg PO Q6 [facility] Last Admin: 07/09/19 05:33 Dose: 125 mg Documented by: Medical Necessity - Tobacco Use Smoking Status: Current some day smoker Tobacco Use: Cigarettes Assessment/Plan All Active Problems Dehydration (Acute) Diarrhea (Acute) Acute weakness (Acute) C. difficile colitis (Acute) 1. Acute C. difficile colitis-continue oral vancomycin 125 mg every 6 hours. IV fluids. Clear liquid diet. CT of abdomen pelvis on admission shows no acute process. Leukocytosis resolved. 2. Mild hypokalemia-secondary to #1. Replaced per protocol, trend BMP. 3. Osteoporosis-continue vitamin D/calcium/alendronate regimen. 4. Fibromyalgia-continue home medication regimen. 5. Anxiety/depression-continue home duloxetine and PRN lorazepam regimen. DVT prophylaxis-SCDs This patient was seen by SAGAR Ferguson under the supervision of Dr. Brizuela.
[2019-07-09] MEDS: oxyCODONE 5 MG Tablet PO ×2 (12:39→22:13)
[2019-07-09 13:51] VITALS: BP 113/71; PULSE 64; RESP 18; TEMP 36.6; O2SAT 95
[2019-07-09] MEDS: Acetaminophen 325 MG Tablet 650 MG PO (17:25)
[2019-07-09] MEDS: DULoxetine Hcl 30 MG Capsule 60 MG PO (20:25)
[2019-07-09 20:30] VITALS: BP 115/62; PULSE 54; RESP 16; TEMP 36.9; O2SAT 97
[2019-07-10 00:05] VITALS: BP 110/57; PULSE 52; RESP 18; TEMP 36.7; O2SAT 97
[2019-07-10] MEDS: 0.9% Normal Saline 1,000 ML 125 ML IV ×3 (06:06→22:19)
[2019-07-10 06:07] VITALS: BP 118/52; PULSE 50; RESP 16; TEMP 36.9; O2SAT 96
[2019-07-10 08:58] VITALS: BP 118/56; PULSE 66; RESP 16; TEMP 37.1; O2SAT 100
[2019-07-10] MEDS: Multivitamins,Ther W-Minerals Tablet 1 TABLET PO (09:07)
[2019-07-10] MEDS: DULoxetine Hcl 30 MG Capsule PO (09:08)
[2019-07-10] MEDS: Calcium Carbonate 500 MG Tablet 1000 MG PO (09:08)
--- NOTE | 2019-07-10 09:54 | BH.SGPN.T2 ---
Addendum entered by Flores Worthington 07/10/19 09:54: Pt stated she will wait for hygiene after she eats her toast. Changed sheets on bed. St satisfied. Original Note: Behaviors/Verbalizations/Mental Status: [] Client Response/Progress/Benefit: [] Narrative Note: []
--- NOTE | 2019-07-10 09:58 | BH.SGPN.T2 ---
Pt states she has pain 8/10 in the neck area. Thinks its related to inability to pass gas. Behaviors/Verbalizations/Mental Status: [] Client Response/Progress/Benefit: [] Narrative Note: []
[2019-07-10 11:42] LABS: Pathologist Review Reviewed
--- NOTE | 2019-07-10 12:06 | PN_ITS ---
<Grace Rothman - Last Filed: 07/10/19 12:10> Patient Problems: Active and Suspected Problems Dehydration (Acute) Diarrhea (Acute) Acute weakness (Acute) C. difficile colitis (Acute) Subjective: Patient seen and examined. Reports her diarrhea briefly improved yesterday afternoon however overnight and this morning has had 1-2 episodes per hour. She denies nausea, vomiting. Continues to have abdominal cramping and tenderness. [place] that patient may be able to be discharged later today however patient would like to stay overnight given persistent diarrhea. - Physical Exam Vitals/I&O's: Vital Signs Temp Pulse Resp BP Pulse Ox 98.7 F 66 16 118/56 L 100 07/10/19 08:58 07/10/19 08:58 07/10/19 08:58 07/10/19 08:58 07/10/19 08:58 Oxygen Delivery Method Room Air Weight: 148 lb 2.41 oz Body Mass Index (BMI) 23.9 Intake and Output for Last 24 Hours 07/08/19 07/09/19 07/10/19 23:59 23:59 23:59 Intake Total 4110.42 / 4360.42 4450 / 4450 1053.75 / 1053.75 Balance 4110.42 / 4360.42 4450 / 4450 1053.75 / 1053.75 General: Alert, Oriented x3, Cooperative HEENT: Atraumatic, PERRLA, EOMI, Normocephalic Neck: Supple, No JVD, Negative Carotid Bruits Lungs: Clear to auscultation, Normal air movement Cardiovascular: Regular rate, Regular Rhythm, Normal S1, Normal S2, No murmurs Abdomen: Bowel Sounds Present, Soft, Non-Distended, Tender Extremities: No clubbing, No cyanosis, No edema, Capillary Refill Less than 3 Seconds Skin: No rashes, No breakdown Musculoskeletal: No Tenderness to Palpation of Joints or Extremities Neurological: Cranial nerves II-XII grossly intact, Neuro grossly intact Psych/Mental Status: Normal Affect, Appropriate Microbiology Past 72 Hours 07/07/19 14:41 Urine, Clean Catch Urine Culture - Final Culture exhibits no growth. 07/07/19 23:15 Stool Enteric Bacteriology - Final 07/07/19 23:15 Stool C. difficile DNA Amplification - Final Toxigenic C. difficile DNA 07/07/19 23:15 Stool Stool Lactoferrin - Final Laboratory Results 07/07/19 12:32: Diff Path Review Reviewed Current Medications Acetaminophen (Tylenol) 650 mg PO Q6H PRN PRN PRN Reason: Pain Score 1-3/Temp > 100.7 F Last Admin: 07/09/19 17:25 Dose: 650 mg Documented by: Calcium Carbonate (Tums) [facility] Last Admin: 07/10/19 09:08 Dose: 1,000 mg Documented by: Cholecalciferol (Vitamin D) 1,[facility] Last Admin: 07/10/19 09:07 Dose: 1,000 unit Documented by: Duloxetine HCl (Cymbalta) 60 mg PO DAILY@2000 [facility] Last Admin: 07/09/19 20:25 Dose: 60 mg Documented by: Duloxetine HCl (Cymbalta) 30 mg PO DAILY@0800 [facility] Last Admin: 07/10/19 09:08 Dose: 30 mg Documented by: Sodium Chloride () 1,000 mls @ 125 mls/hr IV .Q8H [facility] Last Admin: 07/10/19 06:06 Dose: 125 mls/hr Documented by: Lorazepam (Ativan) 0.5 mg PO DAILY PRN PRN Reason: ANXIETY Last Admin: 07/07/19 23:36 Dose: 0.5 mg Documented by: Multivitamins/Minerals (Multivitamin With Minerals) 1 tablet PO DAILY@0800 [facility] Last Admin: 07/10/19 09:07 Dose: 1 tablet Documented by: Ondansetron HCl (Zofran) 4 mg IV Q8H PRN PRN PRN Reason: NAUSEA/VOMITING Oxycodone HCl (Oxyir) 5 mg PO Q6H PRN PRN PRN Reason: Pain Score 6-10/10 Last Admin: 07/09/19 22:13 Dose: 5 mg Documented by: Sodium Chloride () 10 - 40 ml IV UD PRN PRN Reason: SALINE FLUSH Last Admin: 07/07/19 18:51 Dose: 10 ml Documented by: Vancomycin HCl () 125 mg PO Q6 [facility] Last Admin: 07/10/19 06:07 Dose: 125 mg Documented by: Medical Necessity - Tobacco Use Smoking Status: Current some day smoker Tobacco Use: Cigarettes Assessment/Plan All Active Problems Dehydration (Acute) Diarrhea (Acute) Acute weakness (Acute) C. difficile colitis (Acute) 1. Acute C. difficile colitis-continue oral vancomycin 125 mg every 6 hours X14 days. IV fluids. Advance diet. CT of abdomen pelvis on admission shows no acute process. Leukocytosis resolved. Anticipate discharge home tomorrow. 2. Mild hypokalemia-secondary to #1. Replaced per protocol, trend BMP. 3. Osteoporosis-continue vitamin D/calcium/alendronate regimen. 4. Fibromyalgia-continue home medication regimen. 5. Anxiety/depression-continue home duloxetine and PRN lorazepam regimen. DVT prophylaxis-SCDs This patient was seen by SAGAR Ferguson under the supervision of Dr. Cadet. <Toro Cadet E - Last Filed: 07/10/19 13:05> - Physical Exam Vitals/I&O's: Vital Signs Temp Pulse Resp BP Pulse Ox 98.7 F 66 16 118/56 L 100 07/10/19 08:58 07/10/19 08:58 07/10/19 08:58 07/10/19 08:58 07/10/19 08:58 Oxygen Delivery Method Room Air Weight: 148 lb 2.41 oz Body Mass Index (BMI) 23.9 Intake and Output for Last 24 Hours 07/08/19 07/09/19 07/10/19 23:59 23:59 23:59 Intake Total 4110.42 / 4360.42 4450 / 4450 1053.75 / 1053.75 Balance 4110.42 / 4360.42 4450 / 4450 1053.75 / 1053.75 Microbiology Past 72 Hours 07/07/19 14:41 Urine, Clean Catch Urine Culture - Final Culture exhibits no growth. 07/07/19 23:15 Stool Enteric Bacteriology - Final 07/07/19 23:15 Stool C. difficile DNA Amplification - Final Toxigenic C. difficile DNA 07/07/19 23:15 Stool Stool Lactoferrin - Final Laboratory Results 07/07/19 12:32: Diff Path Review Reviewed Current Medications Acetaminophen (Tylenol) 650 mg PO Q6H PRN PRN PRN Reason: Pain Score 1-3/Temp > 100.7 F Last Admin: 07/09/19 17:25 Dose: 650 mg Documented by: Al Hydroxide/Mg Hydroxide (Mylanta Ii) 15 ml PO Q6H PRN PRN PRN Reason: INDIGESTION Calcium Carbonate (Tums) [facility] Last Admin: 07/10/19 09:08 Dose: 1,000 mg Documented by: Cholecalciferol (Vitamin D) 1,000 unit PO DAILYCM [facility] Last Admin: 07/10/19 09:07 Dose: 1,000 unit Documented by: Duloxetine HCl (Cymbalta) 60 mg PO DAILY@2000 [facility] Last Admin: 07/09/19 20:25 Dose: 60 mg Documented by: Duloxetine HCl (Cymbalta) 30 mg PO DAILY@0800 [facility] Last Admin: 07/10/19 09:08 Dose: 30 mg Documented by: Sodium Chloride () 1,000 mls @ 125 mls/hr IV .Q8H [facility] Last Admin: 07/10/19 06:06 Dose: 125 mls/hr Documented by: Lorazepam (Ativan) 0.5 mg PO DAILY PRN PRN Reason: ANXIETY Last Admin: 07/07/19 23:36 Dose: 0.5 mg Documented by: Multivitamins/Minerals (Multivitamin With Minerals) 1 tablet PO DAILY@0800 [facility] Last Admin: 07/10/19 09:07 Dose: 1 tablet Documented by: Ondansetron HCl (Zofran) 4 mg IV Q8H PRN PRN PRN Reason: NAUSEA/VOMITING Oxycodone HCl (Oxyir) 5 mg PO Q6H PRN PRN PRN Reason: Pain Score 6-10/10 Last Admin: 07/09/19 22:13 Dose: 5 mg Documented by: Sodium Chloride () 10 - 40 ml IV UD PRN PRN Reason: SALINE FLUSH Last Admin: 07/07/19 18:51 Dose: 10 ml Documented by: Vancomycin HCl () 125 mg PO Q6 [facility] Last Admin: 07/10/19 12:16 Dose: 125 mg Documented by: Assessment/Plan Hospitalist note: I am seeing this patient in conjunction with Grace Rothman. I independently seen and examined the patient. Progress note above reviewed and I agree with the above treatment plan. Patient still complaining of diarrhea, around 10 times since midnight. Denies any significant abdominal pain, no fever chills. Her vital signs are stable. - Physical Exam General: Alert, Oriented x3, Cooperative, No apparent distress. HEENT: Atraumatic, PERRLA, EOMI. Neck: Supple, No JVD, Negative Carotid Bruits, Trachea Midline, Thyroid Normal. Lungs: Clear to auscultation, Normal air movement, No rhonchi, No wheeze, No rales. Cardiovascular: Regular rate, Regular Rhythm, Normal S1, Normal S2, PMI Normal. Abdomen: Bowel Sounds Present, Soft, Non Tender, Non-Distended, No Hepato- splenomegaly. Extremities: No clubbing, No cyanosis, No edema Skin: No rashes, No breakdown Neurological: Neuro grossly intact Vital Signs are stable. Assessment and plan: #1 acute C. difficile colitis: On vancomycin. Still symptomatic with elevated diarrhea. CT scan abdomen reviewed, no acute findings. She has been afebrile, leukocytosis resolved. Plan to continue vancomycin p.o., discharged home once diarrhea under control. #2 mild hypokalemia: Secondary to excessive diarrhea. Potassium replaced and corrected. #3 other chronic medical problems: Stable, continue current medications as above. This note was generated with [employer] dictation software. It may contain incorrect words, spelling, and punctuation that were not noted in checking the note before signing. Code Visit OBSV E&M: 46900 Subsequent observation care L2
[2019-07-10 14:04] LABS: Anion Gap 5 (5-15); BUN 3 mg/dL (7-18); BUN/Creat Ratio 5.6 RATIO (10-20); Calcium,Total 8.2 mg/dL (8.5-10.1); Chloride 113 mmol/L (98-107); Creatinine, Serum 0.54 mg/dL (0.55-1.02); EST Glomerular Filtration Rate 120 mL/min (>60); Est Glom Filt Rate - Afr Amer 146 mL/min (>60); Estimated Creatinine Clearance 50.41 ml/min; Glucose 102 mg/dL (74-106); Potassium 3.3 mmol/L (3.5-5.1); Sodium Level 144 mmol/L (136-145)
[2019-07-10 14:25] VITALS: BP 123/74; PULSE 68; RESP 16; TEMP 37.2; O2SAT 96
[2019-07-10] MEDS: Mag Hydrox/Al Hydrox/Simeth 30 ML UDC 15 ML PO (14:28)
[2019-07-10] MEDS: Acetaminophen 325 MG Tablet 650 MG PO (19:45)
[2019-07-10] MEDS: DULoxetine Hcl 30 MG Capsule 60 MG PO (19:45)
[2019-07-10 19:51] VITALS: BP 101/64; PULSE 66; RESP 18; TEMP 37.1; O2SAT 99
[2019-07-10 23:52] VITALS: BP 111/68; PULSE 65; RESP 18; TEMP 37.2; O2SAT 97
[2019-07-11] MEDS: Acetaminophen 325 MG Tablet 650 MG PO (03:34)
[2019-07-11 03:35] VITALS: BP 130/77; PULSE 62; RESP 18; TEMP 36.8; O2SAT 98
[2019-07-11] MEDS: 0.9% Normal Saline 1,000 ML 125 ML IV (04:53)
[2019-07-11 08:40] VITALS: BP 121/58; PULSE 61; RESP 16; TEMP 36.8; O2SAT 97
[2019-07-11] MEDS: DULoxetine Hcl 30 MG Capsule PO (08:40)
[2019-07-11] MEDS: Multivitamins,Ther W-Minerals Tablet 1 TABLET PO (08:40)
[2019-07-11] MEDS: Calcium Carbonate 500 MG Tablet 1000 MG PO (08:41)
[2019-07-11 09:33] LABS: Anion Gap 6 (5-15); BUN 3 mg/dL (7-18); BUN/Creat Ratio 5.7 RATIO (10-20); Chloride 114 mmol/L (98-107); Creatinine, Serum 0.52 mg/dL (0.55-1.02); EST Glomerular Filtration Rate 123 mL/min (>60); Est Glom Filt Rate - Afr Amer 149 mL/min (>60); Estimated Creatinine Clearance 50.41 ml/min; Glucose 92 mg/dL (74-106); Potassium 3.4 mmol/L (3.5-5.1); Sodium Level 146 mmol/L (136-145)
--- NOTE | 2019-07-11 10:35 | DCINST_ITS ---
- Discharge Diagnoses Current Active Problems: Current Active and Chronic Problems Dehydration (Acute) Diarrhea (Acute) Acute weakness (Acute) C. difficile colitis (Acute) You will use the following diet at home:: No restrictions Discharge Activity: Return to Normal Activity Instructions: Clostridium difficile Infection Allergies/Adverse Reactions: Allergies codeine Allergy (Verified 07/07/19 11:31) Rash ibandronate sodium [From Boniva] Adverse Reaction (Verified 07/07/19 11:31) EXTREME GERD Medications to take at Discharge Alendronate Sodium 70 mg PO MO 07/07/19 Calcium Carbonate [Calcium] 1,200 mg PO DAILY 07/07/19 Cholecalciferol (VIT D3) [Vitamin D3] 1,000 unit PO DAILY 07/07/19 Duloxetine Hcl [Cymbalta] 30 mg PO DAILY@0800 07/07/19 Duloxetine Hcl [Cymbalta] 60 mg PO DAILY@2000 07/07/19 Lorazepam 0.5 mg PO DAILY PRN 07/07/19 Multivitamin with Minerals [Multiple Vitamin] 1 tab PO DAILY 07/07/19 Vancomycin HCl [Vancocin HCl] 125 mg PO Q6H #40 cap 07/08/19 The following prescriptions were given: Vancomycin HCl [Vancocin HCl] 125 mg PO Q6H #40 cap [facility]: [id number] Primary Care Physician: Jun Arizmendi DO [Primary Care Provider] - Please follow up with your Primary Care Physician in: 1 Week Test Results: Test results from this visit will be discussed in further detail at your follow- up appointment, if applicable. Proposed Discharge Date: 07/11/19
--- NOTE | 2019-07-11 10:38 | DS.PCM_ITS ---
<Grace Rothman - Last Filed: 07/11/19 10:44> Discharge Date and Diagnosis Date of Admission: 07/07/19 Date of Discharge: 07/11/19 - Primary Discharge Diagnosis Active and Suspected Problems 1. Acute C. difficile colitis 2. Mild hypokalemia-secondary to diarrhea as a result of #1. 3. Osteoporosis 4. Fibromyalgia 5. Anxiety/depression - Secondary Discharge Diagnosis Chronic Problems Fibromyalgia (Chronic) GERD (gastroesophageal reflux disease) (Chronic) Hospital Course and Treatment Imaging Results: Diagnostic Data Abdomen/Pelvis CT 07/07/19 12:27 IMPRESSION: Mild degree of bibasilar linear scarring. Surgical clips are seen in the epigastric region. Scattered sigmoid diverticula. Electronically Signed: Kei Terrie, at 13:23 EDT , Service support , Operations: None Procedures: None Summary of Care Provided: The patient is a 68 year old F admitted 07/07/2019 due to intractable diarrhea. 1. Acute C. difficile colitis-continue oral vancomycin 125 mg every [address] of abdomen pelvis on admission shows no acute process. Leukocytosis resolved. Patient's diarrhea has significantly slowed down. Follow-up with primary care provider in 1 week. 2. Mild hypokalemia-secondary to #1. Replaced per protocol, trend BMP. 3. Osteoporosis-continue vitamin D/calcium/alendronate regimen. 4. Fibromyalgia-continue home medication regimen. 5. Anxiety/depression-continue home duloxetine and PRN lorazepam regimen. General: Alert, Oriented x3, Cooperative HEENT: Atraumatic, PERRLA, EOMI, Normocephalic Neck: Supple, No JVD, Negative Carotid Bruits Lungs: Clear to auscultation, Normal air movement Cardiovascular: Regular rate, Regular Rhythm, Normal S1, Normal S2, No murmurs Abdomen: Bowel Sounds Present, Soft, Non-Distended, Tender Extremities: No clubbing, No cyanosis, No edema, Capillary Refill Less than 3 Seconds Skin: No rashes, No breakdown Musculoskeletal: No Tenderness to Palpation of Joints or Extremities Neurological: Cranial nerves II-XII grossly intact, Neuro grossly intact Psych/Mental Status: Normal Affect, Appropriate Patient seen and examined prior to discharge. Physical assessment as noted above. Patient is stable for discharge with follow up recommendations as noted above. This patient was seen by SAGAR Ferguson under the supervision of Dr. Alan gee. - Physical Exam Vitals/I&O's: Vital Signs Temp Pulse Resp BP Pulse Ox 98.3 F 61 16 121/58 H 97 07/11/19 08:40 07/11/19 08:40 07/11/19 08:40 07/11/19 08:40 07/11/19 08:40 Oxygen Delivery Method Room Air Weight: 148 lb 2.41 oz Body Mass Index (BMI) 23.9 Intake and Output for Last 24 Hours 07/09/19 07/10/19 07/11/19 23:59 23:59 23:59 Intake Total 4450 / 4450 3032.92 / 3032.92 1293.75 / 1293.75 Balance 4450 / 4450 3032.92 / 3032.92 1293.75 / 1293.75 Microbiology Past 72 Hours 07/07/19 14:41 Urine, Clean Catch Urine Culture - Final Culture exhibits no growth. 07/07/19 23:15 Stool Enteric Bacteriology - Final Laboratory Results 07/07/19 12:32: Diff Path Review Reviewed 07/10/19 13:40: Sodium 144, Potassium 3.3 L, Chloride 113 H, Carbon Dioxide 26.0, Anion Gap 5, BUN 3 L, Creatinine 0.54 L, Estim Creat Clear Calc 50.41, Est GFR (MDRD) Af Amer 146, Est GFR (MDRD) Non-Af 120, BUN/Creatinine Ratio 5.6 L, Glucose 102, Calcium 8.2 L 07/11/19 09:02: Sodium 146 H, Potassium 3.4 L, Chloride 114 H, Carbon Dioxide 26.0, Anion Gap 6, BUN 3 L, Creatinine 0.52 L, Estim Creat Clear Calc 50.41, Est GFR (MDRD) Af Amer 149, Est GFR (MDRD) Non-Af 123, BUN/Creatinine Ratio 5.7 L, Glucose 92, Calcium 8.0 L Current Medications Acetaminophen (Tylenol) 650 mg PO Q6H PRN PRN PRN Reason: Pain Score 1-3/Temp > 100.7 F Last Admin: 07/11/19 03:34 Dose: 650 mg Documented by: Al Hydroxide/Mg Hydroxide (Mylanta Ii) 15 ml PO Q6H PRN PRN PRN Reason: INDIGESTION Last Admin: 07/10/19 14:28 Dose: 15 ml Documented by: Calcium Carbonate (Tums) [facility] Last Admin: 07/11/19 08:41 Dose: 1,000 mg Documented by: Cholecalciferol (Vitamin D) 1,[facility] Last Admin: 07/11/19 08:40 Dose: 1,000 unit Documented by: Duloxetine HCl (Cymbalta) 60 mg PO DAILY@2000 [facility] Last Admin: 07/10/19 19:45 Dose: 60 mg Documented by: Duloxetine HCl (Cymbalta) 30 mg PO DAILY@0800 [facility] Last Admin: 07/11/19 08:40 Dose: 30 mg Documented by: Sodium Chloride () 1,000 mls @ 125 mls/hr IV .Q8H [facility] Last Infusion: 07/11/19 08:40 Dose: 0 mls/hr Documented by: Lorazepam (Ativan) 0.5 mg PO DAILY PRN PRN Reason: ANXIETY Last Admin: 07/07/19 23:36 Dose: 0.5 mg Documented by: Multivitamins/Minerals (Multivitamin With Minerals) 1 tablet PO DAILY@0800 [facility] Last Admin: 07/11/19 08:40 Dose: 1 tablet Documented by: Ondansetron HCl (Zofran) 4 mg IV Q8H PRN PRN PRN Reason: NAUSEA/VOMITING Oxycodone HCl (Oxyir) 5 mg PO Q6H PRN PRN PRN Reason: Pain Score 6-10/10 Last Admin: 07/09/19 22:13 Dose: 5 mg Documented by: Potassium Chloride (K-Dur) 40 meq PO X1 ONE Stop: 07/11/19 10:34 Sodium Chloride () 10 - 40 ml IV UD PRN PRN Reason: SALINE FLUSH Last Admin: 07/07/19 18:51 Dose: 10 ml Documented by: Vancomycin HCl () 125 mg PO Q6 [facility] Last Admin: 07/11/19 04:54 Dose: 125 mg Documented by: Discharge Diet: No Restrictions Discharge Activity: Return to Normal Activity Home Medications: Medications to take at Discharge Alendronate Sodium 70 mg PO MO 07/07/19 Calcium Carbonate [Calcium] 1,200 mg PO DAILY 07/07/19 Cholecalciferol (VIT D3) [Vitamin D3] 1,000 unit PO DAILY 07/07/19 Duloxetine Hcl [Cymbalta] 30 mg PO DAILY@0800 07/07/19 Duloxetine Hcl [Cymbalta] 60 mg PO DAILY@2000 07/07/19 Lorazepam 0.5 mg PO DAILY PRN 07/07/19 Multivitamin with Minerals [Multiple Vitamin] 1 tab PO DAILY 07/07/19 Vancomycin HCl [Vancocin HCl] 125 mg PO Q6H #40 cap 07/08/19 Following Prescrptions Were Given to Patient: Vancomycin HCl [Vancocin HCl] 125 mg PO Q6H #40 cap Transmission Status: Received by [id number] Primary Care Physician: Jun Arizmendi DO [Primary Care Provider] - Please follow up with your Primary Care Physician in: 1 Week Patient Instructions: Clostridium difficile Infection Disposition: Home Minutes spent on discharge:: 35 Patient Condition:: Stable Medical Necessity - Tobacco Use Smoking Status: Current some day smoker Tobacco Use: Cigarettes Meaningful Use Info Meaningful Use Diagnoses (Choose all that apply): None applicable <Toro Cadet E - Last Filed: 07/11/19 11:12> Discharge Date and Diagnosis - Secondary Discharge Diagnosis Chronic Problems Fibromyalgia (Chronic) GERD (gastroesophageal reflux disease) (Chronic) Hospital Course and Treatment Summary of Care Provided: Hospitalist note: Discharge summary above reviewed including physical examination and I concur with the above discharge and treatment plan. Patient was admitted for diarrhea after being on amoxicillin for 4 days for upper respiratory infection and she was found to have acute C. difficile colitis. CT scan abdomen and pelvis without contrast done on admission showed no acute intra-abdominal process. Patient was found to have significant leukocytosis and on admission, her white blood cell count was 22,000. Stool was positive for toxigenic C. difficile in the knee. Urine culture showed no growth. Stool was negative for Campylobacter, Salmonella, Shigella, Yersinia, vibrio, rotavirus and norovirus. She was treated with oral vancomycin as well as IV fluids for hydration. Her potassium was mildly low which was replaced and corrected. Patient continued to have significant persistent diarrhea and she was worried about dehydration. She remained afebrile throughout the admission and the other vital signs were stable. Her white blood cell count returned back to normal. With treatment, diarrhea slowly improved. Patient discharged home in a stable medical condition, discharged on oral vancomycin to complete treatment for 14 days total, continued on her previous medications without any changes, recommended follow-up with PCP in 1 week. - Physical Exam Vitals/I&O's: Vital Signs Temp Pulse Resp BP Pulse Ox 98.3 F 61 16 121/58 H 97 07/11/19 08:40 07/11/19 08:40 07/11/19 08:40 07/11/19 08:40 07/11/19 08:40 Oxygen Delivery Method Room Air Weight: 148 lb 2.41 oz Body Mass Index (BMI) 23.9 Intake and Output for Last 24 Hours 07/09/19 07/10/19 07/11/19 23:59 23:59 23:59 Intake Total 4450 / 4450 3032.92 / 3032.92 1293.75 / 1293.75 Balance 4450 / 4450 3032.92 / 3032.92 1293.75 / 1293.75 Microbiology Past 72 Hours 07/07/19 14:41 Urine, Clean Catch Urine Culture - Final Culture exhibits no growth. 07/07/19 23:15 Stool Enteric Bacteriology - Final Laboratory Results 07/07/19 12:32: Diff Path Review Reviewed 07/10/19 13:40: Sodium 144, Potassium 3.3 L, Chloride 113 H, Carbon Dioxide 26.0, Anion Gap 5, BUN 3 L, Creatinine 0.54 L, Estim Creat Clear Calc 50.41, Est GFR (MDRD) Af Amer 146, Est GFR (MDRD) Non-Af 120, BUN/Creatinine Ratio 5.6 L, Glucose 102, Calcium 8.2 L 07/11/19 09:02: Sodium 146 H, Potassium 3.4 L, Chloride 114 H, Carbon Dioxide 26.0, Anion Gap 6, BUN 3 L, Creatinine 0.52 L, Estim Creat Clear Calc 50.41, Est GFR (MDRD) Af Amer 149, Est GFR (MDRD) Non-Af 123, BUN/Creatinine Ratio 5.7 L, Glucose 92, Calcium 8.0 L Current Medications Acetaminophen (Tylenol) 650 mg PO Q6H PRN PRN PRN Reason: Pain Score 1-3/Temp > 100.7 F Last Admin: 07/11/19 03:34 Dose: 650 mg Documented by: Al Hydroxide/Mg Hydroxide (Mylanta Ii) 15 ml PO Q6H PRN PRN PRN Reason: INDIGESTION Last Admin: 07/10/19 14:28 Dose: 15 ml Documented by: Calcium Carbonate (Tums) 1,[facility] Last Admin: 07/11/19 08:41 Dose: 1,000 mg Documented by: Cholecalciferol (Vitamin D) 1,000 unit [facility] Last Admin: 07/11/19 08:40 Dose: 1,000 unit Documented by: Duloxetine HCl (Cymbalta) 60 mg PO DAILY@2000 [facility] Last Admin: 07/10/19 19:45 Dose: 60 mg Documented by: Duloxetine HCl (Cymbalta) 30 mg PO DAILY@0800 [facility] Last Admin: 07/11/19 08:40 Dose: 30 mg Documented by: Sodium Chloride () 1,000 mls @ 125 mls/hr IV .Q8H [facility] Last Infusion: 07/11/19 08:40 Dose: 0 mls/hr Documented by: Lorazepam (Ativan) 0.5 mg PO DAILY PRN PRN Reason: ANXIETY Last Admin: 07/07/19 23:36 Dose: 0.5 mg Documented by: Multivitamins/Minerals (Multivitamin With Minerals) 1 tablet PO DAILY@0800 [facility] Last Admin: 07/11/19 08:40 Dose: 1 tablet Documented by: Ondansetron HCl (Zofran) 4 mg IV Q8H PRN PRN PRN Reason: NAUSEA/VOMITING Oxycodone HCl (Oxyir) 5 mg PO Q6H PRN PRN PRN Reason: Pain Score 6-10/10 Last Admin: 07/09/19 22:13 Dose: 5 mg Documented by: Sodium Chloride () 10 - 40 ml IV UD PRN PRN Reason: SALINE FLUSH Last Admin: 07/07/19 18:51 Dose: 10 ml Documented by: Vancomycin HCl () 125 mg PO Q6 [facility] Last Admin: 07/11/19 04:54 Dose: 125 mg Documented by: Disposition: Home Minutes spent on discharge:: 26 Patient Condition:: Stable Meaningful Use Info Meaningful Use Diagnoses (Choose all that apply): None applicable Code Visit OBSV E&M: 52398 Observation care discharge
== END 2019-07-11 11:58 | disposition home or self-care (01) | DRG 373 ==
LOC: ED 15:45 → MS3 16:11
PROVIDERS: Nurse Practitioner Family; Admitting Provider Student in an Organized Health Care Education/Training Program; Emergency Provider Emergency Medicine; Family Provider Preventive Medicine Occupational Medicine; PCP Preventive Medicine Occupational Medicine; Visit Provider Hospitalist
DX: A04.72 Enterocolitis due to Clostridium difficile, not specified as recurrent (principal); E86.0 Dehydration; E87.6 Hypokalemia; M81.0 Age-related osteoporosis without current pathological fracture; M79.7 Fibromyalgia; F32.9 Major depressive disorder, single episode, unspecified; F41.9 Anxiety disorder, unspecified; K21.9 Gastro-esophageal reflux disease without esophagitis
CPT/HCPCS: 36415; 74176; 80048; 80053; 81001; 83630; 83735; 85025; 87086; 87177; 87209; 87493; 87506; 99285; 99406; J7030; A4216; J0744; J2405

== ENCOUNTER 2019-07-17 23:17 | Emergency (ER) | payer MEDICARE, OTHER, SELFPAY ==
[2019-07-17 23:17] VITALS: BP 118/74; PULSE 72; RESP 16; TEMP 36.5; O2SAT 96; BMI 23.7
--- NOTE | 2019-07-17 23:32 | ED.VIS.GEN ---
History of Present Illness Chief Complaint: Complaint Narrative: Patient is a 69-year-old female who presents with a possible UTI. She has had urinary frequency since yesterday. She states for the last hour and a half she has been urinating every 15 minutes and has also noticed some blood in her urine. She complains of dysuria and suprapubic abdominal pain. She is currently on treatment for C. difficile colitis taking oral vancomycin. No fevers. No vomiting. Past Medical History - Allergies and Home Meds Allergies/Adverse Reactions: Allergies codeine Allergy (Verified 07/17/19 23:20) Rash ibandronate sodium [From Boniva] Adverse Reaction (Verified 07/17/19 23:20) EXTREME GERD Primary Care Physician: Jun Arizmendi DO [Primary Care Provider] - Past Medical History: - - C. difficile colitis, osteoporosis Surgical History: - - cholecystectemy, hiatal hernia, hysterectomy, cataract surgery. Smoking Status: Never smoker - Family History Paternal Family History: Reports: Heart Disease Maternal Family History: Reports: - - mother had a stroke when she was 90 Review of Systems All systems negative except as indicated General: Denies: Fever Cardiovascular: Denies: Chest pain Respiratory: Denies: Dyspnea Gastrointestinal: Reports: Abdominal pain, Diarrhea. Denies: Nausea, Vomiting Genitourinary: Reports: Dysuria, Frequency Physical Exam Vital Signs/Narrative: Vital Signs Temp Pulse Resp BP Pulse Ox 07/17/19 23:17 97.7 F L 72 16 118/74 96 Inital Vital Signs reviewed: Yes General: Well nourished, Well developed Head: Normocephalic, Atraumatic Eyes: EOMI ENT: Moist mucous membranes Neck: Supple Cardiovascular: Regular rate, Regular rhythm Respiratory: No distress, CTA bilaterally Abdomen: Soft, Tender - Suprapubic, no guarding or rebound Skin: Normal color Neurological: Alert. Negative for: Normal DTR Psychological: Normal affect Diagnostic/Tx/Re-eval Laboratory Results 07/17/19 23:40 Urine Color Brown Urine Clarity Cloudy Urine pH 6.0 Ur Specific [place] 1.015 Urine Protein 100 H Urine Glucose (UA) Normal Urine Ketones 5 H Urine Occult Blood 250 H Urine Nitrite Positive H Urine Bilirubin Negative Urine Urobilinogen Normal Ur Leukocyte Esterase 500 H Urine RBC > 100 SEEN Urine WBC 50-100 SEEN Ur Squamous Epith Cells 0 SEEN Urine Bacteria 0 SEEN Urine Mucus 0 SEEN - Medical Decision Making UA consistent with cystitis with 500 leukocyte esterase, positive nitrates, 50-100 WBCs. Patient will be treated with Bactrim. She was also given Azo here for symptomatic relief. She understands to return for new or worsening symptoms and was advised on signs and symptoms to monitor for and was discharged home. ED Disposition - Plan for ED Patient: Disposition: Home or Assisted Living Diagnosis: Cystitis Instructions: Understanding Urinary Tract Infections (UTIs) Prescriptions: Smz/Tmp Ds [Bactrim Ds] 1 tab PO BID #5 tab Prescription Printed Phenazopyridine HCl [Pyridium] 200 mg PO TID #10 tab Prescription Printed Referrals: Jun Arizmendi DO [Primary Care Provider] -
[2019-07-17 23:45] LABS: Bacteria 0 SEEN /hpf (None Seen); Mucous, Urine 0 SEEN /hpf (<or=2+); Squamous Epithelial Cells - UA 0 SEEN /hpf (5-10)
[2019-07-17 23:50] LABS: Color, Urine Brown (Yellow); Glucose, Dipstick Normal (Normal); Ketone-Dipstick 5 mg/dl (Negative); Leukocyte Esterase-Dipstick 500 /ul (Negative); Nitrite-Dipstick Positive (Negative); Occult Blood-Urine 250 /ul (Negative); Protein-Dipstick 100 mg/dl (Negative); Specific Gravity, Urine 1.015 (1.002-1.030); Urine Bilirubin Dipstick Negative (Negative); Urine Clarity Cloudy (Clear); Urine Urobilinogen Normal (Normal)
[2019-07-17] MEDS: Phenazopyridine 95 MG Tablet 190 MG PO (23:51)
[2019-07-18 00:01] LABS: Red Blood Cells-Urine > 100 SEEN /hpf (0-5); White Blood Cells 50-100 SEEN /hpf (0-5)
[2019-07-18] MEDS: Smz/Tmp Ds Tablet 1 TABLET PO (00:18)
[2019-07-18 00:19] VITALS: RESP 16
== END 2019-07-18 00:19 | disposition home or self-care (01) ==
PROVIDERS: Emergency Provider Emergency Medicine; Family Provider Preventive Medicine Occupational Medicine; PCP Preventive Medicine Occupational Medicine
DX: N30.91 Cystitis, unspecified with hematuria (principal); A04.72 Enterocolitis due to Clostridium difficile, not specified as recurrent; M81.0 Age-related osteoporosis without current pathological fracture; Z90.49 Acquired absence of other specified parts of digestive tract; Z79.899 Other long term (current) drug therapy
CPT/HCPCS: 81001; 99283

== ENCOUNTER 2019-07-20 13:03 | Emergency (ER) | payer MEDICARE, OTHER, SELFPAY ==
[2019-07-20 13:04] VITALS: BP 146/77; PULSE 92; RESP 14; TEMP 36.1; O2SAT 95; BMI 23.8
--- NOTE | 2019-07-20 13:32 | CT_ITS ---
STUDY: CT ABDOMEN AND PELVIS WITHOUT CONTRAST REASON FOR EXAM: Female, 69 years old. Left flank pain and left groin pain. RADIATION DOSAGE (If Supplied By Facility): CTDIvol = ( 7.16 ) mGy, DLP = ( 332.54 ) mGycm TECHNIQUE: Transaxial images were obtained from the dome of the diaphragm to the symphysis pubis without oral contrast, and without intravenous contrast. Sagittal and coronal images were reconstructed. Individualized dose optimization techniques were used for this CT. COMPARISON: Comparison is made with prior study dated July 07, 2019. FINDINGS: Stable mild degree of increased interstitial markings at the lung bases suggestive of scarring. Coronary artery calcification. Normal liver. There are surgical clips in the gallbladder fossa consistent with a prior cholecystectomy. Normal spleen. Normal pancreas. Normal bilateral adrenal glands. Mild degree of bilateral hydronephrosis. The patient is status post Jose fundoplication. Normal small intestine. Large amount of fecal material is seen in the colon. There is non-visualization of the appendix. Normal abdominal aorta. Normal inferior vena cava. There is borderline retroperitoneal lymphadenopathy with enlarged nodes no greater than 10mm in the short axis diameter. I suspect a 1.3 cm x 1.4 cm polypoid mass at the base of the bladder on the left side. Correlation with ultrasound or cystoscopy is recommended for further evaluation. There is absence of the uterus consistent with a prior hysterectomy. Normal abdominal wall. There are mild degenerative changes of the visualized lumbar spine. CT/Abdomen/Pelvis without Cont IMPRESSION: Questionable mass at the base of the bladder on the left side. Mild degree of bilateral hydronephrosis. Large amount of fecal material is seen in the colon more prominent in the right hemicolon. Electronically Signed: Kei Falcon, at 15:11 EST , Service support ,
--- NOTE | 2019-07-20 13:33 | ED.VIS.GEN ---
History of Present Illness Chief Complaint: Abn Labs Detail of Chief Complaint: Elevated creatinine Informant: Patient Onset: Yesterday Narrative: Patient was admitted to the hospital July 07 the for C. difficile colitis. She returned to the ER 4 days ago with symptoms of UTI. She took her last dose of Bactrim today and is scheduled to finish her p.o. vancomycin tomorrow. Patient saw her PCPs office yesterday and repeat labs were drawn. Creatinine had gone from 0.5 up to 1.2. PCP was the patient to come in and get her kidneys flushed. Patient states that right now her urinary symptoms seem to be pretty well controlled. Last night she reports having a lot of spasm and left flank pain. She has had chills and sweats but no measured fever. Her diarrhea has stopped at this point. Past Medical History - Allergies and Home Meds Allergies/Adverse Reactions: Allergies codeine Allergy (Verified 07/17/19 23:20) Rash ibandronate sodium [From Boniva] Adverse Reaction (Verified 07/17/19 23:20) EXTREME GERD Primary Care Physician: Jun Arizmendi DO [Primary Care Provider] - Prior records reviewed: Yes Past Medical History: - - Reviewed Surgical History: - - cholecystectemy, hiatal hernia, hysterectomy, cataract surgery. Smoking Status: Never smoker - Family History Paternal Family History: Reports: Heart Disease Maternal Family History: Reports: - - mother had a stroke when she was 90 Review of Systems General: Denies: Chills, Fever Eyes: Denies: Visual changes - bilaterally ENT: Denies: Bilateral ear pain Cardiovascular: Denies: Chest pain Respiratory: Denies: Dyspnea, Cough Gastrointestinal: Reports: Nausea. Denies: Abdominal pain, Vomiting, Diarrhea Musculoskeletal: Reports: Back pain - Left flank pain. Denies: Extremity Pain Skin: Denies: Rash Neurological: Denies: Headache Hematologic: Denies: Easy bruising Allergy: Denies: Uticaria Physical Exam Vital Signs/Narrative: Vital Signs Temp Pulse Resp BP Pulse Ox 07/20/19 13:04 96.9 F L 92 14 146/77 H 95 Inital Vital Signs reviewed: Yes General: Well nourished, Well developed Head: Normocephalic ENT: Moist mucous membranes Cardiovascular: Regular rate, Regular rhythm Respiratory: No distress, CTA bilaterally Abdomen: Soft, Nontender Back: Negative for: CVA tenderness Extremities: Nontender Skin: Normal color, No rash Neurological: Alert, Oriented x3 Psychological: Normal affect Diagnostic/Tx/Re-eval Impressions Abdomen/Pelvis CT 07/20/19 13:32 IMPRESSION: Questionable mass at the base of the bladder on the left side. Mild degree of bilateral hydronephrosis. Large amount of fecal material is seen in the colon more prominent in the right hemicolon. Electronically Signed: Kei Falcon, at 15:11 EST , Service support , 07/20/19 13:32 Abdomen/Pelvis without Cont [CT] Stat Laboratory Results 07/20/19 07/20/19 07/20/19 14:05 14:05 14:45 WBC 13.0 H RBC 4.34 Hgb 12.9 Hct 39.9 MCV 91.9 MCH 29.7 MCHC 32.3 RDW Std Deviation 47.6 H RDW Coeff of Nellie 14.1 Plt Count 340 MPV 10.1 Immature Gran % (Auto) 0.500 Neut % (Auto) 73.3 H Lymph % (Auto) 13.5 L [place] % (Auto) 10.4 H Eos % (Auto) 1.0 Baso % (Auto) 1.3 H Absolute Neuts (auto) 9.6 H Absolute Lymphs (auto) 1.76 Nucleated RBC % 0 Sodium 136 Potassium 3.9 Chloride 102 Carbon Dioxide 24.0 Anion Gap 10 BUN 14 Creatinine 0.95 Estim Creat Clear Calc 52.32 Est GFR (MDRD) Af Amer 75 Est GFR (MDRD) Non-Af 62 BUN/Creatinine Ratio 14.7 Glucose 88 Calcium 9.3 Urine Color Yellow Urine Clarity Clear Urine pH 6.5 Ur Specific [place] 1.010 Urine Protein Negative Urine Glucose (UA) Normal Urine Ketones Negative Urine Occult Blood 10 H Urine Nitrite Negative Urine Bilirubin Negative Urine Urobilinogen Normal Ur Leukocyte Esterase 500 H Urine RBC 0 SEEN Urine WBC 25-50 SEEN Ur Squamous Epith Cells 0 SEEN Urine Bacteria RARE Urine Mucus 0 SEEN - Medical Decision Making Patient was given a liter of IV fluids here. Test results are discussed with her. She still has 25-50 white blood cells with rare bacteria on her urinalysis. She had 50-100 white cells on the previous UA. She will be given 3 additional days of Bactrim. Urine was sent for a culture today. She received a full liter IV fluids here to help hydrate her. CT scan today shows a questionable mass at the base of the bladder on the left, appearing to be 1.3 x 1.4 cm polyp. I discussed this with her and she will need follow-up with urology for possible scope and further evaluation. She will be referred and will call for appointment. ED Disposition - Plan for ED Patient: Disposition: Home or Assisted Living Diagnosis: Cystitis Instructions: Bladder Infection, Female (Adult) Prescriptions: Smz/Tmp Ds [Bactrim Ds] 1 tablet PO BID #6 tablet Referrals: Terence Mcdaniels MD [STAFF PHYSICIAN] - As soon as possible Jun Arizmendi DO [Primary Care Provider] - 5-7 Days
[2019-07-20 14:20] LABS: Absolute Lymphocyte Count 1.76 X10^3/uL (0.83-4.51); Absolute Neutrophil Count 9.6 X10^3/uL (2.0-7.7); Basophil# 0.17 X10^3/uL; Basophil% 1.3 % (0-1); Eosinophil# 0.13 X10^3/uL; Hematocrit 39.9 % (37-47); Hemoglobin 12.9 g/dL (12.0-15.0); Lymphocyte # 1.76 X10^3/ul (4.0); Lymphocyte % 13.5 % (19-41); Mean Corp Hgb Conc 32.3 g/dL (32-36); Mean Corpuscular Hgb 29.7 pg (27.0-32.0); Mean Corpuscular Volume 91.9 fL (81-99); Mean Platelet Vol. 10.1 fl (6.2-12.0); Monocyte# 1.35 X10^3/uL; Monocyte% 10.4 % (0-10); NRBC Flagged by Analyzer 0 % (0-5); Neutrophil # 9.55 X10^3/uL (2.7-7.7); Neutrophil % 73.3 % (47-70); Platelet Count 340 K/mm3 (150-450); RBC Distribution Width CV 14.1 % (11.6-14.6); RBC Distribution Width SD 47.6 fl (35.1-43.9); Red Blood Count 4.34 M/mm3 (4.2-5.4)
[2019-07-20 14:31] LABS: Anion Gap 10 (5-15); BUN 14 mg/dL (7-18); BUN/Creat Ratio 14.7 RATIO (10-20); Calcium,Total 9.3 mg/dL (8.5-10.1); Chloride 102 mmol/L (98-107); Creatinine, Serum 0.95 mg/dL (0.55-1.02); EST Glomerular Filtration Rate 62 mL/min (>60); Est Glom Filt Rate - Afr Amer 75 mL/min (>60); Estimated Creatinine Clearance 52.32 ml/min; Glucose 88 mg/dL (74-106); Potassium 3.9 mmol/L (3.5-5.1); Sodium Level 136 mmol/L (136-145)
[2019-07-20] MEDS: 0.9% Normal Saline 1,000 ML 1000 ML IV (14:47)
[2019-07-20 14:56] LABS: Mucous, Urine 0 SEEN /hpf (<or=2+); Red Blood Cells-Urine 0 SEEN /hpf (0-5); Squamous Epithelial Cells - UA 0 SEEN /hpf (5-10)
[2019-07-20 14:58] LABS: Color, Urine Yellow (Yellow); Glucose, Dipstick Normal (Normal); Ketone-Dipstick Negative (Negative); Leukocyte Esterase-Dipstick 500 /ul (Negative); Nitrite-Dipstick Negative (Negative); Occult Blood-Urine 10 /ul (Negative); Protein-Dipstick Negative (Negative); Urine Bilirubin Dipstick Negative (Negative); Urine Clarity Clear (Clear); Urine Urobilinogen Normal (Normal); Urine pH 6.5 (5.0 - 8.0)
[2019-07-20 15:08] LABS: White Blood Cells 25-50 SEEN /hpf (0-5)
[2019-07-20 15:09] LABS: Bacteria RARE /hpf (None Seen)
[2019-07-20 15:44] VITALS: BP 137/82; PULSE 81; RESP 14; O2SAT 97
== END 2019-07-20 15:52 | disposition home or self-care (01) ==
PROVIDERS: Emergency Provider Emergency Medicine; Family Provider Preventive Medicine Occupational Medicine; PCP Preventive Medicine Occupational Medicine
DX: N30.90 Cystitis, unspecified without hematuria (principal); A04.72 Enterocolitis due to Clostridium difficile, not specified as recurrent; Z87.440 Personal history of urinary (tract) infections
CPT/HCPCS: 74176; 80048; 81001; 85025; 87077; 87086; 87088; 87186; 96360; 99283; J7030; A4216

== ENCOUNTER → 2019-07-24 09:00 | Outpatient (CLI) | payer MEDICARE, OTHER, SELFPAY ==
[2019-07-20 13:04] VITALS: BMI 23.8
== END ==
PROVIDERS: Family Provider Preventive Medicine Occupational Medicine; PCP Preventive Medicine Occupational Medicine; Visit Provider Nurse Practitioner Adult Health
DX: N39.0 Urinary tract infection, site not specified (principal)
CPT/HCPCS: 87077; 87086; 87088; 87186

== ENCOUNTER 2019-07-25 03:24 | Emergency (ER) | payer MEDICARE, OTHER, SELFPAY ==
[2019-07-25 03:25] VITALS: BP 119/53; PULSE 86; RESP 20; TEMP 37.5; O2SAT 98; BMI 34.6
[2019-07-25 03:33] VITALS: BP 139/118; PULSE 77; RESP 20; TEMP 37.5; O2SAT 96
--- NOTE | 2019-07-25 03:36 | RAD_ITS ---
STUDY: X-RAY CHEST REASON FOR EXAM: Female, 69 years old. Worsening cough for 2 days. TECHNIQUE: PA and lateral chest. COMPARISON: April 15, 2016. FINDINGS: The lungs are clear and expanded. There is no demonstrated pleural abnormality. Normal size heart. Normal mediastinum and martha. Normal visualized pulmonary arteries. Normal visualized aortic arch and descending thoracic aorta. Normal visualized thoracic spine. Normal visualized ribs, clavicles, and shoulders. There is no demonstrated abnormality of the visualized soft tissue structures of the upper abdomen. RAD/Chest PA and Lateral IMPRESSION: Stable chest, no acute cardiopulmonary disease. Electronically Signed: Zeyad Patricio MD at 3:58 EST , Service support ,
--- NOTE | 2019-07-25 03:55 | ED.VISSUMM ---
- ER Visit Summary Date of Service: 07/25/19 Chief Complaint: [Cough] History of Present Illness: The patient is a 69 F [presents to the emergency department with a cough for several days. Patient states the cough is nonproductive. She denies any fever. She denies shortness of breath. Patient states that she is been using Mucinex and Tessalon Perles and not get much relief. Patient complaining of some right-sided pain with the cough. She denies any sick contacts. She complains of some mild ear pressure. She denies sore throat.] Patient currently on Macrobid for history of UTI. Patient with history of prior C. difficile infections. Physical Examination: [HEENT-PERRLA, EOMI. Cranial nerves II through XII grossly intact. TMs clear. Mucous membranes moist. No adenopathy. Cardiovascular-regular rate and rhythm without murmur or ectopy Lungs-clear to auscultation, chest wall stable without crepitus or subcu emphysema. Patient has some mild tenderness palpation over right anterior chest wall that reproduces her pain. Abdomen-normoactive bowel sounds, soft, nontender, no rebound or rigidity, no peritoneal signs. Extremities-intact ?4, normal range of motion, normal pulses, atraumatic] Test Results: [Chest x-ray obtained and was normal.] Emergency Department Course and Treatment: [] Treatment Plan: [Patient will be given a prescription for [place] to help with the discomfort. I suspect likely a viral URI with a chest wall strain. Patient to follow-up with her primary care physician 5 to 7 days. Patient advised to return if fever, increasing shortness of breath, or conditions worsen anyway.] Disposition: [Discharged home in stable condition.] Impression: [Viral URI Chest wall strain] This note was generated with [email or web address] dictation software. It may contain incorrect words, spelling, and punctuation that were not noted in review of the chart prior to signing ED Disposition - Plan for ED Patient: Referrals: Jun Arizmendi DO [Primary Care Provider] -
--- NOTE | 2019-07-25 04:05 | DCINST.ED_ITS ---
ED Disposition - Plan for ED Patient: Instructions: BRONCHITIS, No Antibiotic (Adult), Chest Wall Strain Prescriptions: Hydrocodone Bitart/Apap 5-325 [[place] 5MG-325MG] 1 tab PO Q4H PRN PRN 2 Days #15 tab PRN Reason: Pain Prescription Printed Referrals: Jun Arizmendi DO [Primary Care Provider] - 5-7 Days
--- NOTE | 2019-07-25 04:11 | DCINST.ED_ITS ---
ED Disposition - Plan for ED Patient: Instructions: BRONCHITIS, No Antibiotic (Adult), Chest Wall Strain Prescriptions: Hydrocodone Bitart/Apap 5-325 [[place] 5MG-325MG] 1 tab PO Q4H PRN PRN 2 Days #15 tab PRN Reason: Pain Prescription Printed Oxycodone HCl/Acetaminophen [Percocet 5/325] 1 tab PO Q6H PRN PRN 3 Days #12 tab PRN Reason: Pain Prescription Printed Referrals: Jun Arizmendi DO [Primary Care Provider] - 5-7 Days
[2019-07-25 04:18] VITALS: BP 118/62; PULSE 81; RESP 18; O2SAT 96
== END 2019-07-25 04:18 | disposition home or self-care (01) ==
LOC: ED 03:41
PROVIDERS: Emergency Provider Emergency Medicine; Family Provider Preventive Medicine Occupational Medicine; PCP Preventive Medicine Occupational Medicine
DX: J06.9 Acute upper respiratory infection, unspecified (principal); S29.011A Strain of muscle and tendon of front wall of thorax, initial encounter; X58.XXXA Exposure to other specified factors, initial encounter; Y93.9 Activity, unspecified; Y92.9 Unspecified place or not applicable; N39.0 Urinary tract infection, site not specified; K21.9 Gastro-esophageal reflux disease without esophagitis; Z86.19 Personal history of other infectious and parasitic diseases; Z87.891 Personal history of nicotine dependence
CPT/HCPCS: 71046; 99282

== ENCOUNTER → 2019-07-31 13:52 | Outpatient (CLI) | payer MEDICARE, OTHER, SELFPAY ==
[2019-07-25 03:25] VITALS: BMI 34.6
== END ==
PROVIDERS: Family Provider Preventive Medicine Occupational Medicine; PCP Preventive Medicine Occupational Medicine; Referring Provider Nurse Practitioner Adult Health; Visit Provider Nurse Practitioner Adult Health
DX: N39.0 Urinary tract infection, site not specified (principal)
CPT/HCPCS: 87086

== ENCOUNTER 2019-08-04 17:52 | Emergency (ER) | payer MEDICARE, OTHER, SELFPAY ==
[2019-08-04 17:53] VITALS: BP 118/68; PULSE 84; RESP 14; TEMP 37.3; O2SAT 96; BMI 23.1
--- NOTE | 2019-08-04 18:01 | ED.DCSUM_ITS ---
History of Present Illness Chief Complaint: Diarrhea Informant: Patient Onset: Days Context: Gradual Onset Timing: Continuous Current Severity: Moderate Maximum Severity: Severe Narrative: The patient presents to the emergency department with abdominal cramping and diarrhea. The patient recently had C. difficile infection at the end of June. She completed 14 days of oral vancomycin. She has been treated for recurrent urinary tract infection and just finished her last antibiotics 8 days ago. She states 3 days ago, she began to have the abdominal cramping and the diarrhea. She states it feels very similar to when she had her C. difficile in the past. She is had low-grade fever. She denies any vomiting. She is otherwise been in her normal state of health. Prior similar symptoms: Yes Recent Illness/Hospitalization: No Past Medical History - Allergies and Home Meds Allergies/Adverse Reactions: Allergies codeine Allergy (Verified 08/04/19 17:55) Rash ibandronate sodium [From Boniva] Adverse Reaction (Verified 08/04/19 17:55) EXTREME GERD Primary Care Physician: Jun Arizmendi DO [Primary Care Provider] - Prior records reviewed: Yes Past Medical History: - - Recurrent bronchitis, history of C. difficile Surgical History: - - cholecystectemy, hiatal hernia, hysterectomy, cataract surgery. Smoking Status: Never smoker - Family History Paternal Family History: Reports: Heart Disease Maternal Family History: Reports: - - mother had a stroke when she was 90 Review of Systems General: Reports: Fever, Malaise. Denies: Chills, Sweats Eyes: Denies: Visual changes - bilaterally, Diplopia ENT: Denies: Rhinorrhea, Sore throat Cardiovascular: Denies: Chest pain, Palpitations Respiratory: Denies: Dyspnea, Cough, Dyspnea on exertion Gastrointestinal: Reports: Abdominal pain, Diarrhea. Denies: Nausea, Vomiting, Melena, Hematochezia Genitourinary: Denies: Dysuria, Hematuria, Frequency Musculoskeletal: Denies: Back pain, Extremity Pain Skin: Denies: Rash, Wounds Neurological: Denies: Headache, Weakness, Numbness Physical Exam Vital Signs/Narrative: Vital Signs Temp Pulse Resp BP Pulse Ox 08/04/19 17:53 99.1 F 84 14 118/68 96 Inital Vital Signs reviewed: Yes General: Well nourished, Well developed, No Acute Distress Head: Normocephalic, Atraumatic Eyes: Perrl, EOMI ENT: Moist mucous membranes, No rhinorrhea Neck: Supple, Nontender Cardiovascular: Regular rate, Regular rhythm, No murmurs Respiratory: No distress, CTA bilaterally, Chest nontender Abdomen: Soft, Nontender, Nondistended, Normal bowel sounds Back: Nontender, Normal Inspection Extremities: Nontender, No edema Skin: Normal color, No rash Neurological: Alert, Oriented x3, Cranial nerves II-XII grossly intact, Normal Strength, Normal Sensation Psychological: Normal affect, Normal Mood Diagnostic/Tx/Re-eval Abnormal Lab Results 08/04/19 08/04/19 08/04/19 18:15 18:15 18:15 WBC 15.7 H RBC 3.96 L Hgb 12.0 Hct 36.3 L MCV 91.7 MCH 30.3 MCHC 33.1 RDW Std Deviation 45.2 H RDW Coeff of Nellie 13.4 Plt Count 358 MPV 9.4 Immature Gran % (Auto) 0.600 Neut % (Auto) 76.1 H Lymph % (Auto) 11.1 L Christian % (Auto) 9.3 Eos % (Auto) 2.4 Baso % (Auto) 0.5 Absolute Neuts (auto) 11.9 H Absolute Lymphs (auto) 1.73 Nucleated RBC % 0 Sodium 136 Potassium 3.3 L Chloride 103 Carbon Dioxide 24.0 Anion Gap 9 BUN 15 Creatinine 0.75 Estim Creat Clear Calc 49.70 Est GFR (MDRD) Af Amer 99 Est GFR (MDRD) Non-Af 82 BUN/Creatinine Ratio 20.1 H Glucose 112 H Lactic Acid 1.3 Calcium 8.3 L Total Bilirubin 0.70 AST 29 ALT 47 Alkaline Phosphatase 144 H Total Protein 6.7 Albumin 3.1 L Globulin 3.6 Albumin/Globulin Ratio 0.9 - Medical Decision Making The patient's abdomen is soft. She is complaining of some cramping pain. IV was established. She was given fluids, antiemetics, and analgesics with improvement of her comfort. She does have leukocytosis, but otherwise labs are unremarkable. She was unable to produce a stool sample for C. difficile. However, given her recent infection, recurrence of diarrhea, and multiple antibiotics I am going to treat her with oral vancomycin. She is started on this here in the emergency department. She is able to tolerate oral, I do feel that she is safe for outpatient therapy at this time. She is comfortable with this plan of care and will be discharged home. Impression 1. Recurrent C. difficile ED Disposition - Plan for ED Patient: Instructions: Clostridium difficile Infection Prescriptions: Dicyclomine HCl [Bentyl] 20 mg PO TIDAC #20 cap Prescription Printed Vancomcyin 125mg/5mL PO Liquid 125 mg PO Q6 #180 ml Prescription Printed Referrals: Jun Arizmendi DO [Primary Care Provider] -
[2019-08-04] MEDS: 0.9% Normal Saline 1,000 ML 1000 ML IV (18:18)
[2019-08-04] MEDS: Morphine 4 MG/ML Syringe IV (18:18)
[2019-08-04] MEDS: Ondansetron 4 MG/2 ML Vial IV (18:18)
[2019-08-04 18:24] LABS: Absolute Lymphocyte Count 1.73 X10^3/uL (0.83-4.51); Absolute Neutrophil Count 11.9 X10^3/uL (2.0-7.7); Basophil# 0.08 X10^3/uL; Basophil% 0.5 % (0-1); Eosinophil# 0.37 X10^3/uL; Eosinophils% 2.4 % (0-5); Hematocrit 36.3 % (37-47); Lymphocyte # 1.73 X10^3/ul (4.0); Lymphocyte % 11.1 % (19-41); Mean Corp Hgb Conc 33.1 g/dL (32-36); Mean Corpuscular Hgb 30.3 pg (27.0-32.0); Mean Corpuscular Volume 91.7 fL (81-99); Mean Platelet Vol. 9.4 fl (6.2-12.0); Monocyte# 1.46 X10^3/uL; Monocyte% 9.3 % (0-10); NRBC Flagged by Analyzer 0 % (0-5); Neutrophil # 11.92 X10^3/uL (2.7-7.7); Neutrophil % 76.1 % (47-70); Platelet Count 358 K/mm3 (150-450); RBC Distribution Width CV 13.4 % (11.6-14.6); RBC Distribution Width SD 45.2 fl (35.1-43.9); Red Blood Count 3.96 M/mm3 (4.2-5.4); White Blood Count 15.7 K/mm3 (4.4-11.0)
[2019-08-04 18:38] LABS: ALB/GLOB Ratio 0.9 RATIO (0.9-2.4); AST(SGOT) 29 U/L (15-37); Alanine Aminotransfer ALT/SGPT 47 U/L (13-56); Albumin, Serum 3.1 g/dL (3.2-5.0); Alkaline Phosphatase 144 U/L (45-117); Anion Gap 9 (5-15); BUN 15 mg/dL (7-18); BUN/Creat Ratio 20.1 RATIO (10-20); Calcium,Total 8.3 mg/dL (8.5-10.1); Chloride 103 mmol/L (98-107); Creatinine, Serum 0.75 mg/dL (0.55-1.02); EST Glomerular Filtration Rate 82 mL/min (>60); Est Glom Filt Rate - Afr Amer 99 mL/min (>60); Globulin 3.6 g/dL (2.2-4.2); Glucose 112 mg/dL (74-106); Potassium 3.3 mmol/L (3.5-5.1); Protein, Total 6.7 g/dL (6.4-8.2); Sodium Level 136 mmol/L (136-145)
[2019-08-04 18:45] LABS: Lactic Acid 1.3 mmol/L (0.4-2.0)
[2019-08-04 19:54] VITALS: BP 100/52; PULSE 75; RESP 16; O2SAT 97
--- NOTE | 2019-08-05 13:09 | ED.RN ---
PT'S C-DIFF RESULTS CAME BACK POSITIVE, PATIENT WAS SENT HOME ON ORAL VANCOMYCIN. DR. TAYLOR MADE AWARE AND NO OTHER ORDERS OBTAINED. PATIENT NOTIFIED OF POSITIVE RESULT.
== END 2019-08-04 20:02 | disposition home or self-care (01) ==
LOC: ED 18:11
PROVIDERS: Emergency Provider Emergency Medicine; Family Provider Preventive Medicine Occupational Medicine; PCP Preventive Medicine Occupational Medicine
DX: A04.71 Enterocolitis due to Clostridium difficile, recurrent (principal); Z86.19 Personal history of other infectious and parasitic diseases; Z87.440 Personal history of urinary (tract) infections
CPT/HCPCS: 80053; 83605; 85025; 96361; 96374; 96375; 99284; J7030; J2405

== ENCOUNTER → 2019-08-05 07:04 | Outpatient (CLI) | payer MEDICARE, OTHER, SELFPAY ==
[2019-08-04 17:53] VITALS: BMI 23.1
== END ==
PROVIDERS: Family Provider Preventive Medicine Occupational Medicine; PCP Preventive Medicine Occupational Medicine; Referring Provider Emergency Medicine; Visit Provider Emergency Medicine
DX: R19.7 Diarrhea, unspecified (principal)
CPT/HCPCS: 87493

== ENCOUNTER → 2019-08-09 11:18 | Outpatient (CLI) | payer MEDICARE, OTHER, SELFPAY ==
[2019-08-04 17:53] VITALS: BMI 23.1
== END ==
PROVIDERS: Family Provider Preventive Medicine Occupational Medicine; PCP Preventive Medicine Occupational Medicine; Referring Provider Nurse Practitioner Adult Health; Visit Provider Nurse Practitioner Adult Health
DX: N39.0 Urinary tract infection, site not specified (principal)
CPT/HCPCS: 87077; 87086; 87088; 87186

== ENCOUNTER 2019-08-09 19:25 | Emergency (ER) | payer MEDICARE, OTHER, SELFPAY ==
[2019-08-09 19:26] VITALS: BP 122/92; PULSE 68; RESP 16; TEMP 36.8; O2SAT 96; BMI 23.2
[2019-08-09 20:02] LABS: Bacteria 0 SEEN /hpf (None Seen); Mucous, Urine 0 SEEN /hpf (<or=2+); Red Blood Cells-Urine 0 SEEN /hpf (0-5); Squamous Epithelial Cells - UA 0 SEEN /hpf (5-10)
[2019-08-09 20:16] LABS: Color, Urine Amber (Yellow); Glucose, Dipstick Normal (Normal); Ketone-Dipstick 5 mg/dl (Negative); Leukocyte Esterase-Dipstick 500 /ul (Negative); Nitrite-Dipstick Positive (Negative); Occult Blood-Urine 50 /ul (Negative); Protein-Dipstick 100 mg/dl (Negative); Specific Gravity, Urine 1.015 (1.002-1.030); Urine Bilirubin Dipstick 3 mg/dL (Negative); Urine Clarity Cloudy (Clear); Urine Urobilinogen 4 mg/dl (Normal)
[2019-08-09 20:27] LABS: White Blood Cells >100 SEEN /hpf (0-5)
--- NOTE | 2019-08-09 20:31 | ED.VISSUMM ---
- ER Visit Summary Date of Service: 08/09/19 Chief Complaint: Dysuria, frequency History of Present Illness: The patient is a 69 F who has dysuria and frequency. She has had this for 3 days. She had a UTI 3 weeks ago and did 2 rounds of Bactrim and then another antibiotic and it cleared. She is currently being treated for C. difficile with vancomycin. She has no fevers. No diarrhea. She admits to no hematuria. Physical Examination: Vital signs reviewed. HEENT exam unremarkable. Heart is regular rate and rhythm without murmurs. Lungs are clear to auscultation. Abdomen is soft and nontender. Extremities reveal no edema. Skin exam normal. Neurologic exam normal. Test Results: Urinalysis has greater than 100 white cells Emergency Department Course and Treatment: Patient has evidence of UTI. I will treat her with Macrobid. She will follow-up with her urologist Treatment Plan: [] Disposition: Discharge Impression: UTI This note was generated with [employer] dictation software. It may contain incorrect words, spelling, and punctuation that were not noted in review of the chart prior to signing ED Disposition - Plan for ED Patient: Referrals: Jun Arizmendi DO [Primary Care Provider] -
--- NOTE | 2019-08-09 20:33 | ED.DEP ---
ED Disposition - Plan for ED Patient: Disposition: Home or Assisted Living Instructions: Bladder Infection, Female (Adult) Prescriptions: Nitrofurantoin Macrocrystals [Macrobid] 100 mg PO Q12 #14 cap Transmission Status: Pending to [id number] Referrals: Jun Arizmendi DO [Primary Care Provider] -
[2019-08-09] MEDS: Nitrofurantoin Macrocrystals 100 MG Capsule PO (20:43)
== END 2019-08-09 20:47 | disposition home or self-care (01) ==
PROVIDERS: Emergency Provider Emergency Medicine; Family Provider Preventive Medicine Occupational Medicine; PCP Preventive Medicine Occupational Medicine
DX: N39.0 Urinary tract infection, site not specified (principal); B96.89 Other specified bacterial agents as the cause of diseases classified elsewhere; Z87.440 Personal history of urinary (tract) infections
CPT/HCPCS: 81001; 87077; 87086; 87088; 87186; 99283

== ENCOUNTER 2019-09-09 16:12 | Emergency (ER) | payer MEDICARE, OTHER, SELFPAY ==
[2019-09-09 16:13] VITALS: BP 116/68; PULSE 88; RESP 16; TEMP 36.1; O2SAT 97; BMI 22.8
[2019-09-09 18:34] LABS: Absolute Lymphocyte Count 1.56 X10^3/uL (0.83-4.51); Absolute Neutrophil Count 5.6 X10^3/uL (2.0-7.7); Basophil# 0.09 X10^3/uL; Eosinophil# 0.36 X10^3/uL; Hematocrit 38.8 % (37-47); Hemoglobin 12.9 g/dL (12.0-15.0); Lymphocyte # 1.56 X10^3/ul (4.0); Lymphocyte % 17.4 % (19-41); Mean Corp Hgb Conc 33.2 g/dL (32-36); Mean Corpuscular Hgb 30.1 pg (27.0-32.0); Mean Corpuscular Volume 90.4 fL (81-99); Mean Platelet Vol. 10.1 fl (6.2-12.0); Monocyte# 1.28 X10^3/uL; Monocyte% 14.3 % (0-10); NRBC Flagged by Analyzer 0 % (0-5); Neutrophil # 5.62 X10^3/uL (2.7-7.7); Neutrophil % 62.5 % (47-70); Platelet Count 258 K/mm3 (150-450); RBC Distribution Width CV 13.8 % (11.6-14.6); RBC Distribution Width SD 46.2 fl (35.1-43.9); Red Blood Count 4.29 M/mm3 (4.2-5.4)
[2019-09-09] MEDS: 0.9% Normal Saline 1,000 ML 1000 ML IV (18:42)
[2019-09-09] MEDS: Ondansetron 4 MG/2 ML Vial IV (18:43)
[2019-09-09 18:46] LABS: ALB/GLOB Ratio 1.1 RATIO (0.9-2.4); AST(SGOT) 16 U/L (15-37); Alanine Aminotransfer ALT/SGPT 42 U/L (13-56); Albumin, Serum 3.4 g/dL (3.2-5.0); Alkaline Phosphatase 144 U/L (45-117); Anion Gap 7 (5-15); BUN 18 mg/dL (7-18); BUN/Creat Ratio 21.1 RATIO (10-20); Calcium,Total 8.6 mg/dL (8.5-10.1); Chloride 104 mmol/L (98-107); Creatinine, Serum 0.85 mg/dL (0.55-1.02); EST Glomerular Filtration Rate 70 mL/min (>60); Est Glom Filt Rate - Afr Amer 85 mL/min (>60); Estimated Creatinine Clearance 58.48 ml/min; Globulin 3.2 g/dL (2.2-4.2); Glucose 117 mg/dL (74-106); Potassium 3.7 mmol/L (3.5-5.1); Protein, Total 6.6 g/dL (6.4-8.2); Sodium Level 139 mmol/L (136-145)
[2019-09-09 19:26] LABS: Color, Urine Yellow (Yellow); Glucose, Dipstick Normal (Normal); Ketone-Dipstick 15 mg/dl (Negative); Leukocyte Esterase-Dipstick 500 /ul (Negative); Nitrite-Dipstick Negative (Negative); Occult Blood-Urine 50 /ul (Negative); Protein-Dipstick 15 mg/dl (Negative); Specific Gravity, Urine 1.025 (1.002-1.030); Urine Bilirubin Dipstick Negative (Negative); Urine Clarity Cloudy (Clear); Urine Urobilinogen Normal (Normal)
[2019-09-09 19:36] LABS: Squamous Epithelial Cells - UA 0-5 SEEN /hpf (5-10)
[2019-09-09 19:37] LABS: Hyaline Cast 0-5 SEEN /lpf (0-5); Mucous, Urine 2+ /hpf (<or=2+)
[2019-09-09 19:38] LABS: Coarse Granular Cast 0-5 SEEN /lpf (0-5 /lpf)
[2019-09-09 19:41] LABS: Bacteria 2+ /hpf (None Seen); Calcium Oxalate Crystals Ur 2+ /hpf (<or=2+)
[2019-09-09 19:42] LABS: Red Blood Cells-Urine 0-5 SEEN /hpf (0-5); White Blood Cells 10-25 SEEN /hpf (0-5)
[2019-09-09 19:43] LABS: Transitional Epithelial - Ur 0-5 SEEN /hpf (0-5)
[2019-09-09 20:13] VITALS: BP 108/50; PULSE 75; RESP 16
--- NOTE | 2019-09-09 21:26 | ED.VISSUMM ---
- ER Visit Summary Date of Service: 09/09/19 Chief Complaint: Diarrhea History of Present Illness: The patient is a 69 F who presents with diarrhea that has been constant for the past 4 to 5 days. Patient has a history of C. difficile. Patient finished a course of vancomycin 2 weeks ago. Patient states her diarrhea has been watery. Patient states she has some dull pain in her abdomen. Patient states this gets sharp at times. Patient states her pain and diarrhea is worse with eating. Patient states she had a fever of 100.9 at home. Patient denies any dysuria or hematuria. Physical Examination: Vital signs are stable. Patient is afebrile. Patient is in no acute distress. Oral mucosa is pink and moist. Neck is supple. Trachea is midline. There is no JVD. Heart was regular rate and rhythm. Lungs are clear and equal bilaterally. Abdomen is soft. Bowel sounds are normal. There is no tenderness. Cranial nerves II through XII are intact. There are no focal motor or sensory deficits noted. Test Results: CBC and comprehensive metabolic profile were within normal limits. Urinalysis showed leukocyte esterase of 500 with 10-25 white blood cells and 2+ bacteria. There is 0-5 epithelial cells. Stool for C. difficile was ordered however, the patient was unable to provide an adequate stool specimen for this. Emergency Department Course and Treatment: Patient was given IV fluids. Patient was given Zofran. Patient was feeling better on reevaluation. Patient was given a prescription for Bactrim for her urinary tract infection. Patient was also given a prescription for oral vancomycin given her history of C. difficile and her antibiotic prescription. Patient was instructed to follow-up with her primary care physician in 5 to 7 days. Patient and understood and was agreeable with the plan. All questions were answered. Disposition: Discharge home Impression: 1. Urinary tract infection 2. History of C. difficile infection This note was generated with [employer] dictation software. It may contain incorrect words, spelling, and punctuation that were not noted in review of the chart prior to signing ED Disposition - Plan for ED Patient: Disposition: Home or Assisted Living Diagnosis: Urinary tract infection, History of Clostridioides difficile infection Prescriptions: Smz/Tmp Ds [Bactrim Ds] 1 tab PO BID #6 tab Prescription Printed Vancomcyin 125mg/5mL PO Liquid 125 mg PO Q6 #280 ml Prescription Printed Referrals: Jun Arizmendi DO [Primary Care Provider] - 5-7 Days
[2019-09-09 21:38] VITALS: BP 115/57; PULSE 75; RESP 16
== END 2019-09-09 21:41 | disposition home or self-care (01) ==
PROVIDERS: Emergency Provider Emergency Medicine; Family Provider Preventive Medicine Occupational Medicine; PCP Preventive Medicine Occupational Medicine
DX: N39.0 Urinary tract infection, site not specified (principal); R19.7 Diarrhea, unspecified; Z86.19 Personal history of other infectious and parasitic diseases
CPT/HCPCS: 80053; 81001; 85025; 96361; 96374; 99283; J7030; A4216; J2405

== ENCOUNTER → 2019-10-10 10:43 | Outpatient (CLI) | payer MEDICARE, OTHER, SELFPAY | LOC: LABSPEC 10:45 | PROVIDERS: PCP Preventive Medicine Occupational Medicine; Referring Provider Internal Medicine Gastroenterology; Visit Provider Internal Medicine Gastroenterology | DX: K58.0 Irritable bowel syndrome with diarrhea (principal); Z86.19 Personal history of other infectious and parasitic diseases | CPT/HCPCS: 87493 ==

== ENCOUNTER → 2020-03-25 15:41 | Outpatient (CLI) | payer MEDICARE, OTHER, SELFPAY ==
--- NOTE | 2020-03-25 15:43 | BI_ITS ---
MAMMOGRAPHY - BILATERAL SCREENING REASON FOR EXAM: Female, 69 years old. Routine annual screening examination. PERTINENT HISTORY: Remote left excisional breast biopsy. Occasional left breast pain. TECHNIQUE: Digital bilateral breast jonn (3D mammographic acquisition) in the CC and MLO projections. 2-D mediolateral oblique (MLO) and craniocaudad (CC) views of both breasts were obtained. CAD: Full Field Digital Mammography with Computer Added Detection was performed. COMPARISON: Comparison is made with prior examination dated May 24, 2018 and February 09, 2017 FINDINGS: Breast Composition: The breasts are heterogeneously dense, which may obscure small masses. There are no dominant masses or suspicious calcifications. No other significant abnormalities are identified. There has been no significant change since the prior study. BI/SCREEN MAMM (CAD) W/JONN BILAT IMPRESSION: Stable bilateral screening mammogram. Yearly follow-up mammogram recommended. (A) ASSESSMENT CATEGORY: BIRADS Category 1: Negative. A letter regarding these results will be sent to the patient by the facility within 30 days. Approximately 10% of breast cancers are not detected by mammography. A normal mammogram should not delay biopsy of a clinically suspicious abnormality. [id number] Electronically Signed: Kei Falcon, at 8:59 EDT , Service support ,
== END ==
PROVIDERS: PCP Preventive Medicine Occupational Medicine; Referring Provider Preventive Medicine Occupational Medicine; Visit Provider Preventive Medicine Occupational Medicine
DX: Z12.31 Encounter for screening mammogram for malignant neoplasm of breast (principal)
CPT/HCPCS: 77063; 77067

== ENCOUNTER → 2020-07-11 09:13 | Outpatient (CLI) | payer MEDICARE, OTHER, SELFPAY ==
--- NOTE | 2020-07-11 09:55 | RAD_ITS ---
HISTORY: PAIN, STIFFNESS AND SWELLING x1 MONTH, NKI Technique: Left Knee; AP, lateral, and oblique radiographs Comparison: None available Findings: No acute fracture or dislocation. Osseous mineralization, and alignment otherwise appear preserved as imaged. Some osteophytes are present on the lateral aspect of the joint in the lateral aspect of the patella. Bone mineral density is likely diminished. RAD/Knee 4 or More Views IMPRESSION: Arthritis. No fracture or dislocation at 0534 Reported and signed by: Jai Garcia MD Electronically Signed: Jai Garcia MD at 5:33 EDT Tel , Service support ,
--- NOTE | 2020-07-11 09:55 | RAD_ITS ---
HISTORY: PAIN, STIFFNESS AND SWELLING x1 MONTH, NKI Technique: Right Knee; AP, lateral, and oblique radiographs Comparison: None available Findings: No acute fracture or dislocation. Osseous mineralization, and alignment otherwise appear preserved as imaged. Osteophytes are present about the weightbearing surfaces of the knee. Some patellar osteophytes are present. A tiny knee effusion. No focal abnormality or radiopaque foreign body is seen in the surrounding soft tissues. RAD/Knee 4 or More Views IMPRESSION: Osteoarthritis at 0535 Reported and signed by: Jai Garcia MD Electronically Signed: Jai Garcia MD at 5:33 EDT Tel , Service support ,
[2020-07-11 10:07] LABS: Hematocrit 42.7 % (37-47); Hemoglobin 13.7 g/dL (12.0-15.0); Mean Corp Hgb Conc 32.1 g/dL (32-36); Mean Corpuscular Volume 93.4 fL (81-99); Mean Platelet Vol. 10.3 fl (6.2-12.0); Platelet Count 265 K/mm3 (150-450); RBC Distribution Width CV 12.8 % (11.6-14.6); RBC Distribution Width SD 43.3 fl (35.1-43.9); Red Blood Count 4.57 M/mm3 (4.2-5.4); White Blood Count 7.8 K/mm3 (4.4-11.0)
[2020-07-11 10:47] LABS: ALB/GLOB Ratio 1.1 RATIO (0.9-2.4); AST(SGOT) 19 U/L (15-37); Alanine Aminotransfer ALT/SGPT 19 U/L (13-56); Albumin, Serum 3.7 g/dL (3.2-5.0); Alkaline Phosphatase 118 U/L (45-117); Anion Gap 6 (5-15); BUN 16 mg/dL (7-18); BUN/Creat Ratio 20.8 RATIO (10-20); Calcium,Total 8.6 mg/dL (8.5-10.1); Chloride 106 mmol/L (98-107); Creatinine, Serum 0.77 mg/dL (0.55-1.02); EST Glomerular Filtration Rate 79 mL/min (>60); Est Glom Filt Rate - Afr Amer 96 mL/min (>60); Globulin 3.4 g/dL (2.2-4.2); Glucose 101 mg/dL (74-106); Potassium 4.1 mmol/L (3.5-5.1); Protein, Total 7.1 g/dL (6.4-8.2); Sodium Level 141 mmol/L (136-145)
== END ==
PROVIDERS: PCP Preventive Medicine Occupational Medicine; Referring Provider Preventive Medicine Occupational Medicine; Visit Provider Preventive Medicine Occupational Medicine
DX: R74.8 Abnormal levels of other serum enzymes (principal); D64.9 Anemia, unspecified; M25.562 Pain in left knee; M25.561 Pain in right knee
CPT/HCPCS: 36415; 73564; 80053; 85027

== ENCOUNTER 2020-11-14 20:50 | Outpatient (RCR) | payer MEDICARE, OTHER, SELFPAY ==
[2020-11-14] MEDS: COVID-19 VACC, MRNA(PFIZER)/PF 30 MCG/0.3 ML SYRINGE IM (11:59)
[2020-12-05] MEDS: COVID-19 VACC, MRNA(PFIZER)/PF 30 MCG/0.3 ML SYRINGE IM (11:33)
== END 2020-11-14 23:59 ==
LOC: IMMUN 20:50
PROVIDERS: PCP Preventive Medicine Occupational Medicine; Visit Provider Family Medicine
DX: Z23 Encounter for immunization (principal)
CPT/HCPCS: 0001A; 0002A

== ENCOUNTER 2021-07-01 09:54 | Outpatient (RCR) | payer MEDICARE, OTHER, SELFPAY ==
[2021-07-01 13:18] LABS: AST(SGOT) 23 U/L (15-37); Alanine Aminotransfer ALT/SGPT 31 U/L (13-56); Albumin, Serum 3.3 g/dL (3.2-5.0); Alkaline Phosphatase 142 U/L (45-117); Bilirubin, Direct 0.11 mg/dL (0.00-0.30); Globulin 3.3 g/dL (2.2-4.2); Lipase 98 U/L (73-393); Protein, Total 6.6 g/dL (6.4-8.2)
== END 2021-07-13 04:06 | disposition home or self-care (01) ==
LOC: MTLAB 09:54
PROVIDERS: PCP Preventive Medicine Occupational Medicine; Referring Provider Internal Medicine Gastroenterology; Visit Provider Internal Medicine Gastroenterology
DX: R10.11 Right upper quadrant pain (principal)
CPT/HCPCS: 36415; 80076; 83690

== ENCOUNTER → 2021-07-16 10:31 | Outpatient (CLI) | payer MEDICARE, OTHER, SELFPAY ==
--- NOTE | 2021-07-16 10:35 | US_ITS ---
STUDY: ABDOMINAL ULTRASOUND - RIGHT UPPER QUADRANT REASON FOR VISIT: Female, 71 years old, right upper quadrant pain, nausea TECHNIQUE: Ultrasound evaluation of the right upper quadrant was performed with real-time and static olson-scale imaging. TECHNICAL QUALITY: Adequate. COMPARISON: None. FINDINGS: Liver: The liver measures 13.9 cm. There is normal echogenicity of the liver. The bile ducts are within normal limits. There is hepatic color flow. The direction of portal flow is hepatopetal. There is no demonstrated mass lesion. Gallbladder: The patient is status post cholecystectomy. Common Bile Duct (C.B.D.): The common bile duct measures 7.3 mm. Pancreas: Normal size of the head, body and tail of the pancreas. There is increased echogenicity of the pancreas. There is no demonstrated pancreatic mass or cyst. Right Kidney: Normal size of the right kidney. The right kidney measures 9.6 x 4.6 x 4.3 cm. Normal renal cortex. The right cortex measures 1.5 cm. There is no demonstrated renal mass or cyst. There is no right hydronephrosis. US/Liver IMPRESSION: No suspicious sonographic findings, pancreas is nonspecifically echogenic. Previous cholecystectomy Electronically Signed: Jose David Joseph MD at 12:33 EDT , Service support ,
== END ==
PROVIDERS: PCP Preventive Medicine Occupational Medicine; Referring Provider Internal Medicine Gastroenterology; Visit Provider Internal Medicine Gastroenterology
DX: R10.11 Right upper quadrant pain (principal)
CPT/HCPCS: 76705

== ENCOUNTER 2021-09-17 11:42 | Emergency (ER) | payer MEDICARE, OTHER, SELFPAY ==
[2021-09-17 11:43] VITALS: BP 140/76; PULSE 76; RESP 18; TEMP 36.6; O2SAT 100; BMI 24.2
--- NOTE | 2021-09-17 11:59 | EKG12_ITS ---
Test Reason : CP Blood Pressure : / mmHG Vent. Rate : 066 BPM Atrial Rate : 066 BPM P-R Int : 132 ms QRS Dur : 092 ms QT Int : 422 ms P-R-T Axes : 034 011 033 degrees QTc Int : 442 ms Normal sinus rhythm Nonspecific ST abnormality Abnormal ECG Confirmed by OMAYRA MAZA, ALAINA ([id number]), online editor GEMA MARINELLI ([id number]) on 09/19/2021 10:06:42 AM Referred By: MONET/SACHA Confirmed By:ALAINA CUTLER MD
[2021-09-17 12:56] LABS: Absolute Lymphocyte Count 1.64 X10^3/uL (0.83-4.51); Absolute Neutrophil Count 4.5 X10^3/uL (2.0-7.7); Basophil# 0.08 X10^3/uL; Basophil% 1.2 % (0-1); Eosinophils% 1.5 % (0-5); Hematocrit 41.9 % (37-47); Hemoglobin 13.9 g/dL (12.0-15.0); Lymphocyte # 1.64 X10^3/ul (0.83-4.51); Lymphocyte % 24.1 % (19-41); Mean Corp Hgb Conc 33.2 g/dL (32-36); Mean Corpuscular Hgb 29.8 pg (27.0-32.0); Mean Corpuscular Volume 89.9 fL (81-99); Mean Platelet Vol. 10.2 fl (6.2-12.0); Monocyte# 0.48 X10^3/uL; NRBC Flagged by Analyzer 0 % (0-5); Neutrophil # 4.48 X10^3/uL (2.7-7.7); Neutrophil % 65.8 % (47-70); Platelet Count 251 K/mm3 (150-450); RBC Distribution Width CV 12.9 % (11.6-14.6); RBC Distribution Width SD 42.5 fl (35.1-43.9); Red Blood Count 4.66 M/mm3 (4.2-5.4); White Blood Count 6.8 K/mm3 (4.4-11.0)
[2021-09-17 13:14] LABS: Anion Gap 8 (5-15); BUN 19 mg/dL (7-18); BUN/Creat Ratio 24.6 RATIO (10-20); Calcium,Total 9.2 mg/dL (8.5-10.1); Chloride 105 mmol/L (98-107); Creatinine, Serum 0.77 mg/dL (0.55-1.02); EST Glomerular Filtration Rate 78 mL/min (>60); Est Glom Filt Rate - Afr Amer 95 mL/min (>60); Glucose 104 mg/dL (74-106); Potassium 4.4 mmol/L (3.5-5.1); Sodium Level 140 mmol/L (136-145); Troponin-I HS 6 pg/mL (3.0-54.0)
--- NOTE | 2021-09-17 14:05 | RAD_ITS ---
STUDY: X-RAY CHEST REASON FOR EXAM: Female, 71 years old. Chest pain TECHNIQUE: Single AP portable view of the chest. COMPARISON: Comparison is made with prior study dated 07/25/2019. FINDINGS: There is hyperinflation of the lungs consistent with chronic obstructive lung disease (COPD). There is no demonstrated pleural abnormality. Normal size heart. Normal mediastinum and martha. Normal visualized pulmonary arteries. Normal visualized aortic arch and descending thoracic aorta. There are diffuse degenerative changes of the visualized thoracic spine. Normal visualized ribs, clavicles, and shoulders. There is no demonstrated abnormality of the visualized soft tissue structures of the upper abdomen. RAD/Chest 1 View (Portable) IMPRESSION: Hyperinflation. The lungs are clear. Electronically Signed: Kei Falcon MD at 14:22 EST , Service support ,
[2021-09-17 14:17] VITALS: BP 120/77; PULSE 54; RESP 23; O2SAT 96
--- NOTE | 2021-09-17 14:33 | CT_ITS ---
STUDY: CTA CHEST REASON FOR EXAM: Female, 71 years old. Atypical CP. Concerned for aorta more than PE RADIATION DOSAGE (If Supplied By Facility): CTDIvol = ( 13.20 ) mGy, DLP = ( 256.84 ) mGycm TECHNIQUE: The examination was performed with the intravenous administration of IV 100mL [id number]-[id number]. Post-processing of the angiographic images was performed, with multiplanar reformation and 3D reconstruction. Individualized dose optimization techniques were used for this CT. COMPARISON: Comparison is made with prior chest radiograph done earlier today. FINDINGS: Normal enhancement of the main pulmonary artery and right and left pulmonary arteries. Normal enhancement of the bilateral peripheral pulmonary arteries. There is no demonstrated pulmonary embolism. Normal thoracic aorta and visualized great vessels. There is no demonstrated aortic dissection. Normal heart and pericardium. Normal mediastinum. Normal hilar regions. Normal visualized trachea and bronchi. The lungs are well expanded. Normal pulmonary parenchyma. Normal pleura. Normal chest wall structures. There are degenerative changes of thoracic spine. Increased kyphosis. Normal visualized upper abdomen. CT/CTA Chest W/WO Contrast IMPRESSION: Normal CTA chest examination, without a demonstrated pulmonary embolism or arterial dissection. Electronically Signed: Kei Falcon MD at 15:02 EST , Service support ,
--- NOTE | 2021-09-17 14:35 | EDS_ITS ---
HPI History of Present Illness Chief Complaint: Chest Pain Informant: patient Onset/Context/Timing Onset: Today Activity at onset: gradual Timing: Continuous Quality: Positive for Aching Location: Substernal Current Severity: Mild Maximum Severity: Moderate Associated Symptoms: Negative for Vomiting, Diaphoresis, Dyspnea, Cough, Fever, Lightheadedness, Acid Reflux and Palpitations Narrative Narrative: 71-year-old female prior cholecystectomy, hysterectomy and hiatal hernia surgery repair years ago. States she thinks had a stress test around 10+ years ago which was negative. She has no known cardiac disease. Said the last month she has had episodes of chest discomfort. Not associated with exertion. Usually substernal goes into her back and into her jaw. There is mild nausea no diaphoresis and no shortness of breath is not exertional and usually when she is lying down at night or at rest watching TV. She describes it as a dull ache. She has she states that it may feel better if she gets up and walks around. She has never had a DVT or PE. No recent travel, surgery or hospitalization. No hemoptysis. No leg pain or swelling. Prior Similar Symptoms: Yes Recent Illness/Hospitalization: No CVD Risk Factors: Negative for Hypertension and Diabetes PE Risk Factors: Negative for Recent Travel/Surgery, Recent Immobilization, Prior DVT or PE, Cancer and OCP + Smoking + >/=35 TAD Risk Factors: Negative for Marfan's Syndrome [facility] Medical History Fibromyalgia Osteoporosis Home Medications alendronate 70 mg PO MO 07/07/19 [History Last Taken 06/26/19] calcium carbonate 1,200 mg PO DAILY 07/07/19 [History Last Taken 07/06/19] cholecalciferol (vitamin D3) 1,000 unit PO DAILY 07/07/19 [History Last Taken Unknown] duloxetine 30 mg PO TID 07/07/19 [History Last Taken 07/07/19] lorazepam 0.5 mg PO DAILY PRN 07/07/19 [History Last Taken Unknown] multivitamin with minerals 1 tab PO DAILY 07/07/19 [History Last Taken 07/06/19] L. acidophilus-L. rhamnosus 1 ea PO DAILY 09/09/19 [History Last Taken Unknown] Allergy/AdvReac Type Severity Reaction Status Date / Time codeine Allergy Rash Verified 09/17/21 11:45 ibandronate sodium AdvReac EXTREME Verified 09/17/21 11:45 [From [facility]] GERD Surgical History History of repair of hiatal hernia Social History Smoking Status: Current every day smoker tobacco type: cigarettes ROS ROS ED ROS Narrative No recent illness. Review of Systems ROS Unobtainable: Denies due to encephalopathy Constitutional Constitutional ED: Denies chills, fever(s) or subjective Eyes Eyes: Denies none ENT ENT ED: Denies ear pain or sore throat Cardiovascular Cardiovascular: Reports as per HPI and chest pain; Denies palpitations or racing heartbeat Respiratory/Chest Respiratory/Chest: Denies cough or dyspnea Gastrointestinal Gastrointestinal: Reports melena, nausea and other; Denies abdominal pain, constipation, diarrhea or vomiting Genitourinary Genitourinary ED: Denies dysuria or hematuria Musculoskeletal Musculoskeletal: Denies myalgias Integumentary Denies rash Neurologic Neurologic: Denies headache(s) Psychiatric Psychiatric: Denies depression Endocrine Endocrinology: Denies polyuria Hematologic/Lymphatic Hematologic/Lymphatic: Denies easy bruising Allergic/Immunologic Allergic/Immunologic ED: Denies urticaria EXAM Physical Exam Narrative Exam Narrative: 71-year-old female no acute distress vital signs stable and afebrile. Pulse ox 9% on room air no signs hypoxia. HEENT exam unremarkable. Neck nontender. Lungs clear to auscultation bilaterally. Heart regular rate and rhythm rate about 70 no murmur. Abdomen soft nontender normal bowel sounds no peritoneal signs. Chest wall nontender. Moving all 4 extremities. Calves are nontender without edema or cords. Radial pulses equal symmetrical. Normal motor strength. Back nontender. Neurologically she is awake and alert with no focal motor deficits. Const Vital Signs: 09/17/21 11:43 09/17/21 14:14 09/17/21 14:17 Temperature 98 F Temperature Source Temporal Pulse Rate 76 54 L Respiratory Rate 18 23 H Respiratory Effort Normal Non-Labored Blood Pressure 140/76 H 120/77 Blood Pressure Mean 97 91 Pulse Ox 100 96 Oxygen Delivery Method Room Air Room Air 09/17/21 14:53 09/17/21 14:58 09/17/21 15:50 Temperature Temperature Source Pulse Rate 68 50 L Respiratory Rate 19 H Respiratory Effort Blood Pressure 106/70 111/70 104/58 L Blood Pressure Mean 83 73 Pulse Ox 99 Oxygen Delivery Method Room Air Positive well nourished and well developed; Negative for obese, cachectic, contractures or unkempt General Appearance ED: well developed and NAD; Negative for unkempt, cachectic, contractures or pallor Nutritional Appearance: Negative for cachectic or obese HEENT Reports moist mucous membranes normocephalic and atraumatic; Negative for trauma or tenderness Eyes PERRL and EOMs intact bilaterally General Eye ED: Negative for pale conjunctiva Neck no lymphadenopathy, supple and no JVD General: Negative for tenderness Chest Wall inspection of chest normal and palpation of chest normal Chest: Negative for tenderness Resp normal respiratory effort and clear to auscultation bilaterally Effort and Inspection: respiratory distress Auscultation: Negative for rales, rhonchi or wheezes Cardio regular rate, regular rhythm, S1 normal heart sound, S2 normal heart sound and no murmurs Rate: Negative for bradycardia or tachycardic GI normal to inspection, nondistended, normoactive bowel sounds, soft to palpation, non-tender, non-distended and no masses; Negative for hepatosplenomegaly Auscultation: Negative for hyperactive bowel sounds Palpation: Negative for splenomegaly Back/Spine no CVA tenderness General Back: Negative for CVA tenderness Extremity normal to inspection General Extremety ED: Negative for edema, pulses abnormal or tenderness General Extremity: Negative for edema or pulses abnormal Neuro oriented x3 and CN's II-XII intact bilaterally Sensorium / Orientation: awake, alert, oriented to person, oriented to place and oriented to time Motor Exam: strength 5/5 throughout; Negative for strength abnormal Psych mental status grossly normal Appearance: Negative for unkempt Mood & Affect: Negative for depressed or tearful Skin no rashes or lesions noted and no wounds General Skin Exam: Negative for jaundice or pallor Heart Score History: Moderately Suspicious ECG: Normal Age: >/= 65 years Risk Factors: 1 or 2 Risk Factors Troponin: </= Normal Limit Score: 4 MDM MDM MDM Narrative Medical decision making narrative: 71-year-old female with atypical chest back and jaw pain. Not exertional. Occurs at rest. Not reproducible. She is never had a cardiac history. She is never had a DVT or PE and has no risk factors for those. Clinically does not sound like that either. Patient's exam and work-up is negative. Due to the back discomfort associated with it and atypical nature of the pain I am getting a CTA to evaluate her aorta. She will also be treated with sublingual nitro since she still having the discomfort to see if that changes the pain. Repeat exam patient is doing well at 3:50 PM. Nitro may have helped her neck discomfort a little bit did not nothing really for the back or chest discomfort. CTA of her chest showed no dissection and no PE. Repeat EKG was unchanged from the first with a sinus bradycardia rate of 51 with no acute signs of NH or ischemia. Repeat exam patient is doing well at 4:49 PM. She will be discharged with outpatient follow-up for outpatient stress test. She knows return if worse. Lab Data Attestation: I reviewed the patient's lab results. Lab results narrative: CBC normal white count of 6. Hemoglobin 13.9. Electrolytes unremarkable gap of 8 BUN 19 creatinine 0.7. High-sensitivity troponin of 6. Second EKG was normal and unchanged. Second troponin was unchanged at 6 also. Patient's been doing well. Her CTA was unremarkable. I spoke to her primary care physician around 4:30 PM. She will follow up with his office and he will ensure she gets a follow-up outpatient stress test for atypical chest pain. Labs: Laboratory Results - last 24 hr 09/17/21 09/17/21 09/17/21 12:50 12:50 15:49 WBC 6.8 RBC 4.66 Hgb 13.9 Hct 41.9 MCV 89.9 MCH 29.8 MCHC 33.2 RDW Std Deviation 42.5 RDW Coeff of Nellie 12.9 Plt Count 251 MPV 10.2 Immature Gran % (Auto) 0.400 Neut % (Auto) 65.8 Lymph % (Auto) 24.1 Evans % (Auto) 7.0 Eos % (Auto) 1.5 Baso % (Auto) 1.2 H Absolute Neuts (auto) 4.5 Absolute Lymphs (auto) 1.64 Nucleated RBC % 0 Sodium 140 Potassium 4.4 Chloride 105 Carbon Dioxide 27.0 Anion Gap 8 BUN 19 H Creatinine 0.77 Estim Creat Clear Calc 48.30 Est GFR (MDRD) Af Amer 95 Est GFR (MDRD) Non-Af 78 BUN/Creatinine Ratio 24.6 H Glucose 104 Calcium 9.2 Troponin I High Sens 6 6 Radiography Chest X-Ray - ED: 1 View, Read by ED Physician, Read by Radiologist, Heart, Lungs, Mediastinum, Bony Structures, No Acute Disease and Chronic Changes Diagnostic Testing: Clinical Impression(s) from Imaging Studies Chest X-Ray 09/17/21 14:05 IMPRESSION: Hyperinflation. The lungs are clear. Electronically Signed: Kei Falcon MD at 14:22 EST , Service support , Chest CTA 09/17/21 14:33 IMPRESSION: Normal CTA chest examination, without a demonstrated pulmonary embolism or arterial dissection. Electronically Signed: Kei Falcon MD at 15:02 EST , Service support , Rhythm Strip Rhythm Strip: Sinus Rhythm Rate: 66 Ectopy: None EKG Initial EKG: Attestation: I personally reviewed and interpreted this EKG as follows: Interpretation: Sinus Rhythm and No Acute Injury Pattern Comments: Normal sinus rhythm rate of 66 no acute signs of NH nor ischemia. Prior EKG tracings: not available for review Second EKG: Attestation: I personally reviewed and interpreted this EKG as follows: Interpretation: Sinus Rhythm, No Acute Injury Pattern and Sinus Bradycardia Comments: Sinus bradycardia rate of 51 no acute signs of NH or ischemia and unchanged from the first Prior EKG tracings: available for review Prior: Unchanged Discharge Plan Triage Chief Complaint: Chest Pain ED Provider: Dain Waller Dx/Rx/DC Orders Clinical Impression: Chest pain of uncertain etiology Instructions: ED Chest Pain, Uncertain Cause Prescriptions: No Action alendronate 70 MG tablet 70 mg PO MO RF: 0 lorazepam 0.5 MG tablet 0.5 mg PO DAILY PRN (Reason: Anxiety) RF: 0 duloxetine 30 MG capsule 30 mg PO TID RF: 0 calcium carbonate 600 MG tablet 1,200 mg PO DAILY RF: 0 multivitamin with minerals 1 EACH tablet 1 tab PO DAILY RF: 0 cholecalciferol (vitamin D3) 1,000 UNIT tablet 1,000 unit PO DAILY RF: 0 L. acidophilus-L. rhamnosus 1 EACH capsule 1 ea PO DAILY RF: 0 Primary Care Provider: Jun Arizmendi Referrals: Jun Arizmendi DO [Primary Care Provider] - As soon as possible Activity Restrictions/Additional Instructions: Your test today were normal. There is no signs of a heart attack. There is no signs of a blood clot. Your labs, EKGs, CAT scan chest x-ray were unremarkable. I want you to follow-up with your primary care physician as soon as possible to be set up for an outpatient stress test. This may be GI related I want him ensure that is not your heart. Return if you are feeling worse. Disposition Disposition: Home, Self Care
[2021-09-17 14:53] VITALS: BP 106/70; PULSE 68
[2021-09-17] MEDS: Nitroglycerin SL (ED/IMG/CATH) 0.4 MG TABLET SL (14:53)
[2021-09-17 14:58] VITALS: BP 111/70
--- NOTE | 2021-09-17 15:26 | EKG12_ITS ---
Test Reason : REPEAT Blood Pressure : / mmHG Vent. Rate : 051 BPM Atrial Rate : 051 BPM P-R Int : 144 ms QRS Dur : 094 ms QT Int : 488 ms P-R-T Axes : 052 036 058 degrees QTc Int : 449 ms Sinus bradycardia Otherwise normal ECG Confirmed by OMAYRA MAZA, ALAINA ([id number]), magazine editor GEMA MARINELLI ([id number]) on 09/19/2021 10:07:00 AM Referred By: MALLY Confirmed By:ALAINA CUTLER MD
[2021-09-17] MEDS: 0.9% Normal Saline 1,000 ML 999 ML IV (15:49)
[2021-09-17 15:50] VITALS: BP 104/58; PULSE 50; RESP 19; O2SAT 99
[2021-09-17 16:20] LABS: Troponin-I HS 6 pg/mL (3.0-54.0)
[2021-09-17 17:02] VITALS: BP 113/59; PULSE 84; RESP 18; TEMP 36.7; O2SAT 96
== END 2021-09-17 17:03 | disposition home or self-care (01) ==
PROVIDERS: Emergency Provider Emergency Medicine; PCP Preventive Medicine Occupational Medicine; Visit Provider Emergency Medicine
DX: R07.89 Other chest pain (principal); R68.84 Jaw pain; F17.210 Nicotine dependence, cigarettes, uncomplicated; M81.0 Age-related osteoporosis without current pathological fracture; M79.7 Fibromyalgia; Z79.899 Other long term (current) drug therapy
CPT/HCPCS: 36415; 71045; 71275; 80048; 84484; 85025; 93005; 96360; 99284; J7030; Q9967; A4216

== ENCOUNTER 2021-10-09 07:17 | Outpatient (CLI) | payer MEDICARE, OTHER, SELFPAY ==
--- NOTE | 2021-10-09 17:02 | STRESSREP ---
Stress Test Report Exercise none cardial perfusion stress test. 71-year-old lady with a history of chest pain. Stress protocol: Resting EKG demonstrates sinus bradycardia with a rate of 52 bpm normal intervals are noted resting blood pressure is 118/72 mmHg. Patient exercised according to regular Gianfranco protocol for total duration of 3 minutes and 43 seconds. The maximum heart rate attained was 130 bpm which was 87% of max impact at heart rate the maximum workload was 6.3 metabolic equivalents. At rest there were no ST or T wave changes noted suggest ischemia at peak exercise upsloping ST changes were noted with did not meet the criteria for ischemia. No clinical angina was noted the test was terminated due to dyspnea and slight chest tightness. The peak blood pressure was 158/84 mmHg. Myocardial perfusion protocol. 11.2 mCi of technetium 99m sestamibi was injected at rest. The patient exercised on a regular Gianfranco protocol for 3 minutes and 43 seconds and at peak exercise 34.1 mCi of technetium 99m sestamibi was injected stress images were obtained stress and rest images were reconstructed and compared in the short axis vertical long horizontal long axis. Gated images were also obtained per Perfusion SPECT analysis: Review of the stress images demonstrate normal uptake of tracer noted in all areas of the myocardium. The resting images similarly demonstrate normal uptake of tracer noted in all areas of the myocardium. No areas of reversibility are noted suggest ischemia and no previous infarct is noted. Gated SPECT analysis: The gated ejection fraction is 81%. Conclusion: Normal exercise myocardial perfusion stress test at a low to moderate workload. The above could affect sensitivity for detection of ischemia. Preserved ejection fraction.
== END 2021-10-09 23:59 | disposition short-term general hospital (02) ==
LOC: CVS 07:18
PROVIDERS: PCP Preventive Medicine Occupational Medicine; Referring Provider Preventive Medicine Occupational Medicine; Visit Provider Preventive Medicine Occupational Medicine
DX: R07.89 Other chest pain (principal)
CPT/HCPCS: 78452; 93017; A9500; A4216

== ENCOUNTER 2021-12-19 14:57 | Outpatient (CLI) | payer MEDICARE, OTHER, SELFPAY ==
[2021-12-19 16:09] LABS: Absolute Lymphocyte Count 2.11 X10^3/uL (0.83-4.51); Absolute Neutrophil Count 5.1 X10^3/uL (2.0-7.7); Basophil# 0.11 X10^3/uL; Basophil% 1.4 % (0-1); Eosinophil# 0.17 X10^3/uL; Eosinophils% 2.1 % (0-5); Hematocrit 41.8 % (37-47); Hemoglobin 13.9 g/dL (12.0-15.0); Lymphocyte # 2.11 X10^3/ul (0.83-4.51); Mean Corp Hgb Conc 33.3 g/dL (32-36); Mean Corpuscular Volume 90.3 fL (81-99); Mean Platelet Vol. 11.2 fl (6.2-12.0); Monocyte# 0.58 X10^3/uL; Monocyte% 7.2 % (0-10); NRBC Flagged by Analyzer 0 % (0-5); Neutrophil # 5.12 X10^3/uL (2.7-7.7); Neutrophil % 63.1 % (47-70); Platelet Count 275 K/mm3 (150-450); RBC Distribution Width CV 12.7 % (11.6-14.6); RBC Distribution Width SD 41.8 fl (35.1-43.9); Red Blood Count 4.63 M/mm3 (4.2-5.4); White Blood Count 8.1 K/mm3 (4.4-11.0)
[2021-12-19 16:19] LABS: Erythrocyte Sedimentation Rate 4 mm/hr (0-30)
[2021-12-19 16:33] LABS: ALB/GLOB Ratio 1.1 RATIO (0.9-2.4); AST(SGOT) 19 U/L (15-37); Alanine Aminotransfer ALT/SGPT 23 U/L (13-56); Alkaline Phosphatase 145 U/L (45-117); Anion Gap 2 (5-15); BUN 16 mg/dL (7-18); CRP < 2.90 mg/L (0.0-3.0); Calcium,Total 9.3 mg/dL (8.5-10.1); Chloride 106 mmol/L (98-107); Creatinine, Serum 0.73 mg/dL (0.55-1.02); EST Glomerular Filtration Rate 84 mL/min (>60); Est Glom Filt Rate - Afr Amer 101 mL/min (>60); Globulin 3.5 g/dL (2.2-4.2); Glucose 100 mg/dL (74-106); LDH 212 U/L (84-246); Potassium 3.8 mmol/L (3.5-5.1); Protein, Total 7.5 g/dL (6.4-8.2); Sodium Level 137 mmol/L (136-145)
[2021-12-23 12:00] LABS: Anti-Centromere B Ab <0.2 AI (0.0-0.9); Anti-Chromatin <0.2 AI (0.0-0.9); Anti-Jo <0.2 AI (0.0-0.9); Anti-Scleroderma-70 AB <0.2 AI (0.0-0.9); RNP Ab <0.2 AI (0.0-0.9); SJOGREN'S Anti-SS-A test < 0.2 AI (0.0-0.9); SJOGREN'S Anti-SS-B test < 0.2 AI (0.0-0.9); Smith Ab <0.2 AI (0.0-0.9)
[2021-12-23 13:18] LABS: Anti-Mitochondrial AB <20.0 Units (0.0-20.0); Anti-dsDNA Ab <1 IU/mL (0-9)
[2021-12-27 00:08] LABS: Angiotensin Convert Enzyme 35 U/L (14-82); Cytoplasmic Ab (C-ANCA) <1:20 titer (Neg:<1:20); Immunoglobulin A 315 mg/dL (64-422); Immunoglobulin E 6 IU/mL (6-495); Immunoglobulin G 679 mg/dL (586-1602)
[2021-12-27 08:45] LABS: Anti-Smooth Muscle ABS 12 Units (0-19); Copper, Serum or Plasma 184 ug/dL (80-158); Immunoglobulin M 66 mg/dL (26-217); Perinuclear Ab (P-ANCA) <1:20 titer (Neg:<1:20)
== END 2021-12-19 23:59 | disposition home or self-care (01) ==
LOC: LAB 14:58
PROVIDERS: PCP Preventive Medicine Occupational Medicine; Visit Provider Internal Medicine Gastroenterology
DX: R19.7 Diarrhea, unspecified (principal); K21.9 Gastro-esophageal reflux disease without esophagitis
CPT/HCPCS: 36415; 80053; 82164; 82525; 82784; 82785; 83516; 83615; 85025; 85652; 86140; 86225; 86235; 86256

== ENCOUNTER 2021-12-22 13:47 | Outpatient (CLI) | payer MEDICARE, OTHER, SELFPAY ==
[2021-12-27 08:45] LABS: Calprotectin, Stool 32 ug/g (0-120); Fats, Neutral Increased (.); Fats, Total Increased (.)
== END 2021-12-22 23:59 | disposition home or self-care (01) ==
PROVIDERS: PCP Preventive Medicine Occupational Medicine; Visit Provider Internal Medicine Gastroenterology
DX: R19.7 Diarrhea, unspecified (principal)
CPT/HCPCS: 82705; 83630; 83993; 87177; 87209; 87493; 87506

== ENCOUNTER → 2022-01-02 | Outpatient (CLI) | payer MEDICARE, OTHER, SELFPAY ==
--- NOTE | 2022-01-02 09:47 | NM_ITS ---
INDICATION: 12 years post cholecystectomy -- abdominal pain, loose stools EXAMINATION: NUCLEAR MEDICINE HEPATOBILIARY SCAN - NM Hepatobiliary Imaging Quantitive TECHNIQUE: No dosage information is provided. Sequential images are obtained, presumably at 1 minute intervals. COMPARISON: None. FINDINGS: Gallbladder is absent. There is homogeneous uptake and excretion of the radiopharmaceutical by the liver. There is no abnormal hyperemia along the gallbladder fossa. Biliary activity is noted at 5 minutes. Bowel activity is noted at 12-13 minutes. NM/Hepatobilliary Imaging IMPRESSION: Negative postcholecystectomy hepatobiliary scan. No evidence for common bile duct obstruction. Electronically Signed: Heraclio Tucker MD at 22:03 EDT ,
== END | disposition home or self-care (01) ==
LOC: NM 09:47
PROVIDERS: PCP Preventive Medicine Occupational Medicine; Referring Provider Internal Medicine Gastroenterology; Visit Provider Internal Medicine Gastroenterology
DX: R10.9 Unspecified abdominal pain (principal); R19.7 Diarrhea, unspecified
CPT/HCPCS: 78226; A9537

== ENCOUNTER → 2022-04-06 | Outpatient (CLI) | payer MEDICARE, OTHER, SELFPAY ==
[2022-04-06 09:26] LABS: Hemoglobin 14.2 g/dL (12.0-15.0); Mean Corp Hgb Conc 33.8 g/dL (32-36); Mean Corpuscular Volume 91.7 fL (81-99); Platelet Count 230 K/mm3 (150-450); RBC Distribution Width SD 43.4 fl (35.1-43.9); Red Blood Count 4.58 M/mm3 (4.2-5.4); White Blood Count 7.3 K/mm3 (4.4-11.0)
[2022-04-06 10:07] LABS: ALB/GLOB Ratio 1.1 RATIO (0.9-2.4); AST(SGOT) 14 U/L (15-37); Alanine Aminotransfer ALT/SGPT 21 U/L (13-56); Albumin, Serum 3.5 g/dL (3.2-5.0); Alkaline Phosphatase 110 U/L (45-117); Anion Gap 4 (5-15); BUN 16 mg/dL (7-18); BUN/Creat Ratio 23.4 RATIO (10-20); Calcium,Total 9.2 mg/dL (8.5-10.1); Chloride 105 mmol/L (98-107); Creatinine, Serum 0.68 mg/dL (0.55-1.02); EST Glomerular Filtration Rate 90 mL/min (>60); Est Glom Filt Rate - Afr Amer 109 mL/min (>60); Globulin 3.2 g/dL (2.2-4.2); Glucose 105 mg/dL (74-106); Potassium 4.1 mmol/L (3.5-5.1); Protein, Total 6.7 g/dL (6.4-8.2); Sodium Level 141 mmol/L (136-145)
== END | disposition home or self-care (01) ==
LOC: LAB 08:55
PROVIDERS: PCP Preventive Medicine Occupational Medicine; Visit Provider Preventive Medicine Occupational Medicine
DX: D64.9 Anemia, unspecified (principal); R74.8 Abnormal levels of other serum enzymes
CPT/HCPCS: 36415; 80053; 85027

== ENCOUNTER → 2022-10-16 | Outpatient (CLI) | payer MEDICARE, OTHER, SELFPAY ==
--- NOTE | 2022-10-16 10:07 | RAD_ITS ---
STUDY: X-RAY - PELVIS REASON FOR EXAM: Female, 72 years old. PAIN TECHNIQUE: One view of the pelvis was obtained. COMPARISON: None. FINDINGS: There is a non-specific bowel gas pattern. Normal visualized soft tissue structures. Normal bilateral iliac wings, sacroiliac joints and visualized sacrum. Normal visualized bilateral superior and inferior pubic rami. Normal pubic symphysis. Normal ischial tuberosities. Normal visualized right femoral head. Normal right acetabulum. Normal right hip joint. Normal visualized left femoral head. Normal left acetabulum. Normal left hip joint. RAD/Pelvis 1 or 2 Views IMPRESSION: Normal x-ray examination of the pelvis. Electronically Signed: Artemio Jarquin MD at 18:44 EST ,
[2022-10-16 12:14] LABS: Erythrocyte Sedimentation Rate 6 mm/hr (0-30)
[2022-10-16 12:16] LABS: Absolute Lymphocyte Count 1.71 X10^3/uL (0.83-4.51); Absolute Neutrophil Count 6.8 X10^3/uL (2.0-7.7); Eosinophil# 0.38 X10^3/uL; Eosinophils% 3.9 % (0-5); Hematocrit 40.8 % (37-47); Hemoglobin 13.3 g/dL (12.0-15.0); Lymphocyte # 1.71 X10^3/ul (0.83-4.51); Lymphocyte % 17.3 % (19-41); Mean Corp Hgb Conc 32.6 g/dL (32-36); Mean Corpuscular Volume 92.1 fL (81-99); Mean Platelet Vol. 11.1 fl (6.2-12.0); Monocyte# 0.81 X10^3/uL; Monocyte% 8.2 % (0-10); NRBC Flagged by Analyzer 0 % (0-5); Platelet Count 305 K/mm3 (150-450); RBC Distribution Width CV 13.2 % (11.6-14.6); RBC Distribution Width SD 44.3 fl (35.1-43.9); Red Blood Count 4.43 M/mm3 (4.2-5.4); White Blood Count 9.9 K/mm3 (4.4-11.0)
[2022-10-16 12:29] LABS: AST(SGOT) 18 U/L (15-37); Alanine Aminotransfer ALT/SGPT 21 U/L (13-56); Albumin, Serum 3.6 g/dL (3.2-5.0); Alkaline Phosphatase 120 U/L (45-117); Anion Gap 7 (5-15); BUN 18 mg/dL (7-18); Calcium,Total 8.9 mg/dL (8.5-10.1); Chloride 103 mmol/L (98-107); Creatinine, Serum 0.75 mg/dL (0.55-1.02); EST Glomerular Filtration Rate 81 mL/min (>60); Est Glom Filt Rate - Afr Amer 98 mL/min (>60); Globulin 3.7 g/dL (2.2-4.2); Glucose 100 mg/dL (74-106); Potassium 3.6 mmol/L (3.5-5.1); Protein, Total 7.3 g/dL (6.4-8.2); Rheumatoid Factor < 10.0 IU/mL (<15); Sodium Level 139 mmol/L (136-145)
[2022-10-16 13:01] LABS: Hepatitis B Surface Antibody Non-Reactive; Hepatitis B Surface Antigen Non-Reactive (Nonreactive); Hepatitis C Antibody Non-Reactive (Nonreactive)
[2022-10-19 14:27] LABS: ANTINUCLEAR ANTIBODIES DIRECT Negative (Negative)
[2022-10-27 22:27] LABS: CCP IgG Antibodies 5 units (0-19); HLA B27 Negative (.)
== END | disposition home or self-care (01) ==
PROVIDERS: PCP Preventive Medicine Occupational Medicine; Referring Provider Internal Medicine Rheumatology; Visit Provider Internal Medicine Rheumatology
DX: M79.7 Fibromyalgia (principal); M06.4 Inflammatory polyarthropathy; M19.041 Primary osteoarthritis, right hand; M47.897 Other spondylosis, lumbosacral region; H35.30 Unspecified macular degeneration; K21.9 Gastro-esophageal reflux disease without esophagitis; K86.81 Exocrine pancreatic insufficiency; M81.0 Age-related osteoporosis without current pathological fracture; F41.9 Anxiety disorder, unspecified; F32.A Depression, unspecified; H93.11 Tinnitus, right ear
CPT/HCPCS: 36415; 72170; 80053; 81374; 85025; 85652; 86038; 86140; 86200; 86431; 86706; 86803; 87340

== ENCOUNTER → 2022-11-05 | Outpatient (CLI) | payer MEDICARE, OTHER, SELFPAY ==
--- NOTE | 2022-11-05 14:49 | BI_ITS ---
MAMMOGRAPHY - BILATERAL SCREENING REASON FOR EXAM: Female, 72 years old. Routine annual screening examination. PERTINENT HISTORY: Non-contributory. Remote left excisional breast biopsy. TECHNIQUE: Digital bilateral breast jonn (3D mammographic acquisition) in the CC and MLO projections. 2-D mediolateral oblique (MLO) and craniocaudad (CC) views of both breasts were obtained. CAD: Full Field Digital Mammography with Computer Added Detection was performed. COMPARISON: Comparison is made with prior examination dated 03/25/2020 and 05/24/2018. FINDINGS: Breast Composition: The breasts are heterogeneously dense, which may obscure small masses. There are no dominant masses or suspicious calcifications. No other significant abnormalities are identified. There has been no significant change since the prior study. BI/SCRN MAMM (CAD)W/JONN BILAT IMPRESSION: Stable bilateral screening mammogram. Yearly follow-up mammogram recommended. (A) ASSESSMENT CATEGORY: BIRADS Category 1: Negative. A letter regarding these results will be sent to the patient by the facility within 30 days. Approximately 10% of breast cancers are not detected by mammography. A normal mammogram should not delay biopsy of a clinically suspicious abnormality. [id number] Electronically Signed: Kei Falcon MD at 15:43 EST ,
--- NOTE | 2022-11-05 14:52 | BD_ITS ---
STUDY: DUAL ENERGY X-RAY ABSORPTIOMETRY / DXA REASON FOR EXAM: Female, 72 years old. [id number] TECHNIQUE: Bone Mineral Density (BMD) measurements of lumbar spine and bilateral hips were obtained. COMPARISON: Comparison is made with prior examination 05/31/2018. FINDINGS: Lumbar Spine (L1-L4): g/cm2 (0.724) / T-score (-2.7) / Z-score (-0.5) Findings are suggestive of osteoporosis with a high fracture risk. Left Femur Total: g/cm2 (0.670) / T-score (-2.2) / Z-score (-0.6) Left Femoral Neck: g/cm2 (0.546) / T-score (-2.7) / Z-score (-0.8) Right Femur Total: g/cm2 (0.664) / T-score (-2.3) / Z-score (-0.6) Right Femoral Neck: g/cm2 (0.579) / T-score (-2.4) / Z-score (-0.5) The T-Scores on the most recent prior examination were: Lumbar Spine (L1-L4): There has been worsening of bone density since the previous examination. Left Femur Total: which represents a worsening of 7.9%. Right Femur Total: which represents a worsening of 6.8%. BD/Dexa Bone Density Study IMPRESSION: The patient is considered osteoporotic as outlined below according to World Sanju Organization (WHO) criteria with a high fracture risk. There has been worsening of bone density since the previous examination. Reference Information: The T-score is the number of standard deviations above or below the standard which is normal for young adults at their peak bone mineral density. The World Health Organization (WHO) interprets the T-scores as follows: Above -1 Normal bone density Between -1 and -2.5 Osteopenia Equal to / or below -2.5 Osteoporosis As a practical clinical guideline, osteopenia may be graded as follows: Mild -1 through -1.5 Moderate -1.6 through -2.0 Severe -2.1 through -2.4 The Z-score is the number of standard deviations above or below age-matched controls. A Z-score of less than -1.5 would be considered abnormal. References: 1. NIH Osteoporosis and Related Bone Diseases www osteo.org 2. International Society for Clinical Densitometry www iscd.org 3. National Osteoporosis Foundation www nof.org Electronically Signed: Kei Falcon MD at 15:47 EST ,
== END | disposition home or self-care (01) ==
LOC: OPBD 14:46
PROVIDERS: PCP Preventive Medicine Occupational Medicine; Visit Provider Preventive Medicine Occupational Medicine
DX: Z12.31 Encounter for screening mammogram for malignant neoplasm of breast (principal); M81.0 Age-related osteoporosis without current pathological fracture
CPT/HCPCS: 77063; 77067; 77080

== ENCOUNTER → 2023-01-04 | Outpatient (CLI) | payer MEDICARE, OTHER, SELFPAY ==
[2023-01-04 16:28] LABS: Vitamin D,25 Hydroxy 67.1 ng/mL
[2023-01-04 16:30] LABS: CRP < 2.90 mg/L (0.0-3.0); GGTP 10 U/L (5-55)
[2023-01-06 14:10] LABS: Vitamin D 1,25-Dihydroxy 79.3 pg/mL (24.8-81.5)
== END | disposition home or self-care (01) ==
LOC: LAB 14:44
PROVIDERS: PCP Preventive Medicine Occupational Medicine; Visit Provider Internal Medicine Gastroenterology
DX: R76.8 Other specified abnormal immunological findings in serum (principal); K74.3 Primary biliary cirrhosis
CPT/HCPCS: 36415; 82306; 82652; 82977; 86140

== ENCOUNTER → 2023-01-20 | Outpatient (CLI) | payer MEDICARE, OTHER, SELFPAY ==
--- NOTE | 2023-01-20 08:02 | MRI_ITS ---
STUDY: MR CHOLANGIOPANCREATOGRAPHY (MRCP) REASON FOR EXAM: Female, 72 years old. Right upper quadrant pain TECHNIQUE: Standard MRCP technique was utilized. Three-dimensional reconstruction images performed of the biliary system at an independent workstation and reviewed at time of dictation. . COMPARISON: 01/02/2022 FINDINGS: MRCP: Gall Bladder: Gall bladder is surgically absent. Cystic duct: Cystic duct was not well visualized. Intrahepatic ducts: Normal visualized intrahepatic ducts with no demonstrated fixed filling defect, dilation or stricture. Common hepatic duct: Normal with no demonstrated fixed filling defect, dilation or stricture. Common bile duct: Normal with no demonstrated fixed filling defect, dilation or stricture. Pancreatic duct: Normal with no demonstrated fixed filling defect, dilation or stricture. Liver is unremarkable without demonstrable mass or intrahepatic bile duct dilation. Spleen is normal. Pancreas is unremarkable without evidence of peripancreatic stranding or focal fluid. Normal bilateral kidneys without hydronephrosis. MRI/MRCP Abdomen without Contrast IMPRESSION: 1. Normal postcholecystectomy MR Cholangiopancreatography (MRCP). Electronically Signed: Flash Pittman (Brooks), at 14:29 EDT Reading Location ID and State: / [place] , Service support ,
== END | disposition home or self-care (01) ==
PROVIDERS: PCP Preventive Medicine Occupational Medicine; Referring Provider Internal Medicine Gastroenterology; Visit Provider Internal Medicine Gastroenterology
DX: K86.81 Exocrine pancreatic insufficiency (principal)
CPT/HCPCS: 74181

== ENCOUNTER 2023-02-01 13:46 | Emergency (ER) | payer MEDICARE, OTHER, SELFPAY ==
[2023-02-01 13:47] VITALS: BP 127/81; PULSE 73; RESP 14; TEMP 36.1; O2SAT 97
--- NOTE | 2023-02-01 14:58 | EDS_ITS ---
HPI HPI - GI History of Present Illness Chief Complaint: Diarrhea Detail of Chief Complaint: Diarrhea for 4 days. Prior history of C. difficile. Informant: patient Nausea/Vomiting/Emesis GI Symptom: Positive for Nausea Severity: Mild Diarrhea/Melena/Hematochezia GI Symptom: Positive for Diarrhea; Negative for Melena or Hematochezia Onset: Days Stool Quality: Positive for Watery Severity: Severe Episodes: 10 Associated Symptoms Associated Symptoms: Negative for Dysuria, Frequency, Hematuria or Urgency Narrative Narrative: 70-year-old female history of a prior cholecystectomy and hysterectomy. States she had diarrhea since Wednesday afternoon. She had a prior history of C. difficile and is just concerned that it is recurred. She denies any recent antibiotics or hospitalization. States she has had greater than 10 watery bowel movements per day for the last 4 days. She feels dehydrated and weak. Denies any fever. She has had a 5 pound weight loss. She has had nausea without vomiting. No melena or hematochezia. Prior similar symptoms: Yes Recent Illness/Hospitalization: No PFSH PFSH Medical History Acute kidney injury Anxiety Arthritis Atypical chest pain Breast lump Calcification of abdominal aorta Coronary artery calcification De Quervain's tenosynovitis Depressive disorder Diverticulitis EIC (epidermal inclusion cyst) Elevated liver enzymes Epigastric pain Fibromyalgia Hydronephrosis Hypocalcemia Hypokalemia IBS (irritable bowel syndrome) Left knee pain Lumbar back pain Mass of urinary bladder Normocytic anemia Osteoarthritis Osteoporosis Panic disorder Positive P-ANCA titer Retroperitoneal lymphadenopathy Right knee pain TMJ arthralgia Umbilical hernia Medical History no medical history Home Medications calcium carbonate 600 mg calcium (1,500 mg) tablet 1,200 mg PO DAILY 07/07/19 [History Last Taken 07/06/19] duloxetine 30 mg capsule,delayed release 30 mg PO TID 07/07/19 [History Last Taken 07/07/19] Lactobacillus acidophilus and rhamnosus 15 billion cell capsule 1 ea PO DAILY 09/09/19 [History Last Taken Unknown] alendronate 70 mg tablet 70 mg PO QWEEK 12/19/21 [History Last Taken Unknown] vitamin E 200 unit capsule 200 unit PO DAILY 12/19/21 [History Last Taken Unknown] vitamins A,C,Z-tvfy-ncxryq 4,296 mcg-226 mg-90 mg capsule (PreserVision AREDS) 1 cap PO BID 12/19/21 [History Last Taken Unknown] jwtbdn-bovsbgeo-swirqnw 36,000-114,000-180,000 unit capsule,delay rel (Creon) 1 cap PO TID #320 caps 08/12/22 [Rx Last Taken Unknown] Allergy/AdvReac Type Severity Reaction Status Date / Time codeine Allergy Rash Verified 02/01/23 13:47 ibandronate sodium AdvReac EXTREME Verified 02/01/23 13:47 [From [facility]] GERD Family History Father Arthritis Grandmother Diabetes Grandfather Myocardial infarction Mother Myocardial infarction CVA (cerebral vascular accident) Other Fibromyalgia IBS (irritable bowel syndrome) Surgical History Cataract extraction status H/O: hysterectomy History of repair of hiatal hernia Hx of colonoscopy Social History Smoking Status: Current every day smoker tobacco type: cigarettes alcohol intake: never substance use type: does not use what type of physical activity do you participate in: none ROS ROS ED ROS Narrative Watery diarrhea. Mild nausea. No vomiting. No fever. Review of Systems ROS Unobtainable: Denies due to encephalopathy Constitutional Constitutional ED: Denies chills or fever(s) ENT ENT ED: Denies ear pain Cardiovascular Cardiovascular: Denies chest pain Respiratory/Chest Respiratory/Chest: Denies cough Gastrointestinal Gastrointestinal: Reports diarrhea and nausea; Denies abdominal pain, constipation, melena or vomiting Genitourinary Genitourinary ED: Denies dysuria or hematuria Musculoskeletal Musculoskeletal: Denies arthralgias Integumentary Denies abscess or Abrasions Neurologic Neurologic: Denies headache(s) Psychiatric Psychiatric: Denies anxiety Endocrine Endocrinology: Denies polydipsia Hematologic/Lymphatic Hematologic/Lymphatic: Denies easy bleeding Allergic/Immunologic Allergic/Immunologic ED: Denies mouth swelling or tongue swelling EXAM Physical Exam Narrative Exam Narrative: 72-year-old female no acute distress vital signs stable afebrile. Does not look septic or toxic. Does look mildly dehydrated. H EENT exam mildly dry mucous membranes. Neck nontender no lymphadenopathy. Lungs clear to auscultation bilaterally. Heart regular rhythm rate about 70 no murmur. Abdomen soft nontender normal bowel sounds no peritoneal signs. No obstruction. Moving all 4 extremities. Nontender no edema. Back nontender. Neurologically she is awake and alert with no focal motor deficits. Const Vital Signs: 02/01/23 13:47 02/01/23 15:43 02/01/23 18:03 Temperature 97 F L Temperature Source Temporal Pulse Rate 73 53 L 57 L Respiratory Rate 14 16 16 Blood Pressure 127/81 H 133/72 H 143/71 H Blood Pressure Mean 96 92 95 Pulse Ox 97 96 96 Oxygen Delivery Method Room Air Room Air Room Air Positive well nourished and well developed; Negative for cachectic, contractures or unkempt General Appearance ED: well developed and NAD; Negative for unkempt, cachectic, contractures or pallor Nutritional Appearance: Negative for cachectic HEENT Reports dry mucous membranes; Denies moist mucous membranes normocephalic and atraumatic; Negative for trauma or tenderness Mouth ED: Yes dry mucous membranes Mouth: dry mucous membranes Eyes PERRL and EOMs intact bilaterally General Eye ED: Negative for pale conjunctiva or scleral icterus Neck no lymphadenopathy, supple and no JVD General: Negative for tenderness Carotids: Negative for other Lymph Lymphatic: Negative for other Resp normal respiratory effort and clear to auscultation bilaterally Effort and Inspection: Negative for respiratory distress Auscultation: Negative for rales, rhonchi or wheezes Cardio regular rate, regular rhythm, S1 normal heart sound, S2 normal heart sound and no murmurs Rate: Negative for bradycardia or tachycardic Rhythm: Negative for abnormal rhythm GI non-tender, non-distended and no masses Inspection: Negative for abdominal distention Auscultation: normoactive bowel sounds Palpation: soft; Negative for tender, guarding, rigid, hepatomegaly, splenomegaly, hernia, mass, pulsatile mass or rebound tenderness present Back/Spine no CVA tenderness General Back: Negative for CVA tenderness Cervical Spine: Negative for cervical spine tenderness Thoracic Spine / Upper Back: Negative for thoracic spinal tenderness Lumbar Spine / Lower Back: Negative for lumbar spinal tenderness Extremity full ROM General Extremety ED: Negative for edema or tenderness General Extremity: Negative for edema Neuro CN's II-XII intact bilaterally and moves all extremities Sensorium / Orientation: alert, oriented to person, oriented to place and oriented to time; Negative for orientation impaired, confused or lethargic Motor Exam: strength 5/5 throughout Psych mental status grossly normal and thought process normal Appearance: Negative for unkempt Attitude: No agitated Mood & Affect: Negative for depressed, anxious or tearful Skin no wounds General Skin Exam: Negative for jaundice or pallor Lesions: no lesions Rashes: no rashes Trauma: Negative for abrasion Nails: Negative for discolored MDM MDM MDM Narrative Medical decision making narrative: 72-year-old female with diarrhea. Viral syndrome versus C. difficile versus other etiologies. Clinically looks mildly dehydrated. Will be treated with IV fluids times a liter screening labs and C. difficile will be obtained. Patient doing well on repeat exam at 8:55 PM. She had extended emergency department visit because she could not produce any stool for hours. She and I discussed her test results. Her labs are unremarkable her C. difficile is negative. She understands that she has continued diarrhea she needs to follow- up with her GI doctor and she may need additional stool studies and repeat C. difficile studies. I explained her sometimes at initially negative until you get a positive C. difficile result. Plenty of fluids. Imodium for diarrhea. History & Record Review Discussion w/independent historian: Patient Additional record(s) reviewed:: Prior inpatient record, Prior outpatient record, Prior ED visit and Prior labs Lab Data Attestation: I reviewed the patient's lab results. Lab results narrative: CBC normal. White count of 7. H&H of 13 and 42. Platelets 238. Electrolytes show a gap of 10 normal BUN and creatinine. Normal liver enzymes. Glucose is 99. C. difficile negative. Labs: Laboratory Results - last 24 hr 02/01/23 02/01/23 15:10 15:10 WBC 7.4 RBC 4.67 Hgb 13.9 Hct 42.7 MCV 91.4 MCH 29.8 MCHC 32.6 RDW Std Deviation 42.7 RDW Coeff of Nellie 12.8 Plt Count 238 MPV 10.7 Immature Gran % (Auto) 0.300 Neut % (Auto) 65.9 Lymph % (Auto) 21.9 [place] % (Auto) 8.6 Eos % (Auto) 2.2 Baso % (Auto) 1.1 H Absolute Neuts (auto) 4.9 Absolute Lymphs (auto) 1.62 Nucleated RBC % 0 Sodium 140 Potassium 3.8 Chloride 105 Carbon Dioxide 25.0 Anion Gap 10 BUN 15 Creatinine 0.75 Estim Creat Clear Calc 1.96 Est GFR (MDRD) Af Amer 98 Est GFR (MDRD) Non-Af 81 BUN/Creatinine Ratio 20.1 H Glucose 99 Calcium 9.2 Total Bilirubin 0.60 AST 18 ALT 20 Alkaline Phosphatase 128 H Total Protein 7.2 Albumin 3.8 Globulin 3.4 Albumin/Globulin Ratio 1.1 Discharge Plan Triage Chief Complaint: Diarrhea ED Provider: Dain Waller Dx/Rx/DC Orders Clinical Impression: Diarrhea, History of IBS Instructions: ED Diarrhea, Unknown Cause Prescriptions: No Action PreserVision AREDS 14,320-226-200 qzsr-in-wcfa capsule 1 cap PO BID vitamin E 200 unit capsule 200 unit PO DAILY Creon 36,000-114,000- 180,000 unit capsule,delayed release(DR/EC) 1 cap PO TID Qty: 320 11RF Rx Instructions: administer with meals and/or snacks duloxetine 30 MG capsule 30 mg PO TID calcium carbonate 600 MG tablet 1,200 mg PO DAILY alendronate 70 mg tablet 70 mg PO QWEEK L. acidophilus-L. rhamnosus 1 EACH capsule 1 ea PO DAILY Primary Care Provider: Jun Arizmendi Referrals: Jun Arizmendi DO [Primary Care Provider] - 3-5 Days if not improving Activity Restrictions/Additional Instructions: Follow-up with your primary care physician and/or your wax pattern repairer if not improving. You may need additional stool studies and repeat C. difficile studies. Plenty of fluids. Rest. Imodium for diarrhea. Disposition Disposition: Home, Self Care
[2023-02-01 15:25] LABS: Absolute Lymphocyte Count 1.62 X10^3/uL (0.83-4.51); Absolute Neutrophil Count 4.9 X10^3/uL (2.0-7.7); Basophil# 0.08 X10^3/uL; Basophil% 1.1 % (0-1); Eosinophil# 0.16 X10^3/uL; Eosinophils% 2.2 % (0-5); Hematocrit 42.7 % (37-47); Hemoglobin 13.9 g/dL (12.0-15.0); Lymphocyte # 1.62 X10^3/ul (0.83-4.51); Lymphocyte % 21.9 % (19-41); Mean Corp Hgb Conc 32.6 g/dL (32-36); Mean Corpuscular Hgb 29.8 pg (27.0-32.0); Mean Corpuscular Volume 91.4 fL (81-99); Mean Platelet Vol. 10.7 fl (6.2-12.0); Monocyte# 0.64 X10^3/uL; Monocyte% 8.6 % (0-10); NRBC Flagged by Analyzer 0 % (0-5); Neutrophil # 4.88 X10^3/uL (2.7-7.7); Neutrophil % 65.9 % (47-70); Platelet Count 238 K/mm3 (150-450); RBC Distribution Width CV 12.8 % (11.6-14.6); RBC Distribution Width SD 42.7 fl (35.1-43.9); Red Blood Count 4.67 M/mm3 (4.2-5.4); White Blood Count 7.4 K/mm3 (4.4-11.0)
[2023-02-01 15:39] LABS: ALB/GLOB Ratio 1.1 RATIO (0.9-2.4); AST(SGOT) 18 U/L (15-37); Alanine Aminotransfer ALT/SGPT 20 U/L (13-56); Albumin, Serum 3.8 g/dL (3.2-5.0); Alkaline Phosphatase 128 U/L (45-117); Anion Gap 10 (5-15); BUN 15 mg/dL (7-18); BUN/Creat Ratio 20.1 RATIO (10-20); Calcium,Total 9.2 mg/dL (8.5-10.1); Chloride 105 mmol/L (98-107); Creatinine, Serum 0.75 mg/dL (0.55-1.02); EST Glomerular Filtration Rate 81 mL/min (>60); Est Glom Filt Rate - Afr Amer 98 mL/min (>60); Estimated Creatinine Clearance 1.96 ml/min; Globulin 3.4 g/dL (2.2-4.2); Glucose 99 mg/dL (74-106); Potassium 3.8 mmol/L (3.5-5.1); Protein, Total 7.2 g/dL (6.4-8.2); Sodium Level 140 mmol/L (136-145)
[2023-02-01] MEDS: 0.9% Normal Saline 1,000 ML 1000 ML IV (15:41)
[2023-02-01 15:43] VITALS: BP 133/72; PULSE 53; RESP 16; O2SAT 96
[2023-02-01 18:03] VITALS: BP 143/71; PULSE 57; RESP 16; O2SAT 96
[2023-02-01 20:00] VITALS: BP 130/70; PULSE 56; RESP 16; O2SAT 96
[2023-02-01 21:08] VITALS: BP 134/76; PULSE 53; RESP 16; O2SAT 97
== END 2023-02-01 21:13 | disposition home or self-care (01) ==
PROVIDERS: Emergency Provider Emergency Medicine; PCP Preventive Medicine Occupational Medicine; Visit Provider Emergency Medicine
DX: R19.7 Diarrhea, unspecified (principal); I25.10 Atherosclerotic heart disease of native coronary artery without angina pectoris; R11.0 Nausea; Z87.19 Personal history of other diseases of the digestive system
CPT/HCPCS: 80053; 85025; 87493; 96360; 99283; J7030; A4216

== ENCOUNTER → 2023-02-24 | Outpatient (CLI) | payer MEDICARE, OTHER, SELFPAY ==
[2023-02-24 08:24] LABS: Vitamin B12 691 pg/mL (211-911)
[2023-03-01 21:07] LABS: Pancreatic Elastase, Fecal 76 (>200)
== END | disposition home or self-care (01) ==
PROVIDERS: PCP Preventive Medicine Occupational Medicine; Referring Provider Internal Medicine Gastroenterology; Visit Provider Internal Medicine Gastroenterology
DX: K86.81 Exocrine pancreatic insufficiency (principal); R19.7 Diarrhea, unspecified
CPT/HCPCS: 36415; 82607; 82653; 82746

== ENCOUNTER → 2023-03-08 | Outpatient (CLI) | payer MEDICARE, OTHER, SELFPAY ==
--- NOTE | 2023-03-08 06:43 | CT_ITS ---
STUDY: CT ABDOMEN AND PELVIS WITH AND WITHOUT CONTRAST REASON FOR EXAM: Female, 72 years old. EPI -- Pancreatic Protocol RADIATION DOSAGE (If Supplied By Facility): CTDIvol = ( 11.04 ) mGy, DLP = ( 903.44 ) mGycm TECHNIQUE: Transaxial images were obtained from the dome of the diaphragm to the symphysis pubis with oral contrast. Oral and amp;amp; IV Readi-CAT and amp;amp; 100mL Isovue-300 was administered. Sagittal and coronal images were reconstructed. Individualized dose optimization techniques were used for this CT. COMPARISON: CT scan 07/20/2019 and MRCP 01/20/2023. FINDINGS: The visualized lung bases are unremarkable. The visualized portions of the heart are within normal limits. Normal liver. There are surgical clips in the gallbladder fossa consistent with a prior cholecystectomy. There is mild intrahepatic bile duct distention. There is extrahepatic bile duct distention with the common bile duct measuring 8 mm across. Correlate with liver function tests. Normal spleen. Pancreas is unremarkable for age, showing some fatty infiltration. Normal bilateral adrenal glands. Right kidney has small nonobstructing upper pole stones, otherwise normal right kidney. Normal left kidney. Normal visualized stomach. Normal small intestine. Moderate fecal retention throughout the colon. There is non-visualization of the appendix. Normal abdominal aorta. Normal inferior vena cava. Normal retroperitoneum. Normal urinary bladder. There is absence of the uterus consistent with a prior hysterectomy. There is a small umbilical hernia containing fat. Normal osseous structures. CT/CT Abd/Pelvis W/WO Contrast IMPRESSION: Intra and extrahepatic bile duct distention. Correlate with liver function tests. Fecal retention throughout the colon. Nonobstructing right renal stones. No definite acute abnormality. Electronically Signed: Aron Dixon MD at 20:53 EDT ,
[2023-03-08 07:14] LABS: CREATININE FINGERSTICK < 0.9 mg/dL (0.55-1.02); EGFR FINGERSTICK > 60.0000 mL/min (>60)
== END | disposition home or self-care (01) ==
LOC: CT 06:42
PROVIDERS: PCP Preventive Medicine Occupational Medicine; Referring Provider Internal Medicine Gastroenterology; Visit Provider Internal Medicine Gastroenterology
DX: K86.81 Exocrine pancreatic insufficiency (principal)
CPT/HCPCS: 74178; Q9967

== ENCOUNTER → 2023-04-19 | Outpatient (CLI) | payer MEDICARE, OTHER, SELFPAY ==
[2023-04-19 15:01] LABS: Bacteria 0 SEEN /hpf (None Seen); Mucous, Urine 0 SEEN /hpf (<or=2+); Red Blood Cells-Urine 0 SEEN /hpf (0-5); Squamous Epithelial Cells - UA 0 SEEN /hpf (5-10)
[2023-04-19 17:56] LABS: Color, Urine Yellow (Yellow); Glucose, Dipstick Normal (Normal); Ketone-Dipstick Negative (Negative); Leukocyte Esterase-Dipstick 500 /ul (Negative); Nitrite-Dipstick Negative (Negative); Occult Blood-Urine 25 /ul (Negative); Protein-Dipstick 15 mg/dl (Negative); Urine Bilirubin Dipstick Negative (Negative); Urine Clarity Clear (Clear); Urine Urobilinogen Normal (Normal)
[2023-04-19 18:22] LABS: White Blood Cells 10-25 SEEN /hpf (0-5)
== END | disposition home or self-care (01) ==
LOC: LABSPEC 15:00
PROVIDERS: PCP Preventive Medicine Occupational Medicine; Visit Provider Physician Assistant
DX: R10.9 Unspecified abdominal pain (principal); R30.0 Dysuria
CPT/HCPCS: 81001; 87077; 87086; 87088; 87186

== ENCOUNTER → 2023-04-26 | Outpatient (CLI) | payer MEDICARE, OTHER, SELFPAY ==
--- NOTE | 2023-04-26 11:40 | RAD_ITS ---
STUDY: X-RAY - LUMBAR SPINE REASON FOR EXAM: Female, 72 years old. Lower back pain. TECHNIQUE: 6 view(s) of the lumbar spine were obtained. COMPARISON: None FINDINGS: Osteopenia. Normal lumbar lordosis. No substantial scoliosis. Normal alignment of the vertebrae. Normal vertebral bodies and endplates. Mild intervertebral disc space narrowing most marked at L3-4, L4-5 and L5-S1. Vascular calcification and cholecystectomy clips. RAD/L/S Spine Min 4 Views IMPRESSION: Osteopenia with mild lower lumbosacral spondylosis. No acute abnormality or erosive changes. Electronically Signed: Marvin Beebe MD at 10:23 EDT ,
== END | disposition home or self-care (01) ==
LOC: RAD 11:38
PROVIDERS: PCP Preventive Medicine Occupational Medicine; Referring Provider Preventive Medicine Occupational Medicine; Visit Provider Preventive Medicine Occupational Medicine
DX: M54.50 Low back pain, unspecified (principal)
CPT/HCPCS: 72110

== ENCOUNTER → 2023-05-15 | Outpatient (CLI) | payer MEDICARE, OTHER, SELFPAY ==
--- NOTE | 2023-05-15 07:37 | MRI_ITS ---
STUDY: MRI LUMBAR SPINE WITHOUT CONTRAST REASON FOR EXAM: Female, 72 years old. pain X 8 MONTHS TECHNIQUE: Standardized fat and water weighted pulse sequences were obtained in the sagittal and axial planes. COMPARISON: X-ray the lumbar spine dated April 26, 2023 FINDINGS: Normal lumbar lordosis. There is a levoscoliosis of the lumbar spine. Normal conus medullaris that terminates at the L1-L2 level. No marrow edema or fracture or compression deformity is present. T12-L1: Normal endplates. Diffuse disc desiccation. Normal disc height and morphology. Normal bilateral facet joints. Normal central canal and bilateral lateral recesses. Normal bilateral intervertebral neural foramina. L1-2: Diffuse disc desiccation. Small central Schmorl''s node. Mild disc space narrowing and annular bulging. Normal bilateral facet joints. Normal central canal and bilateral lateral recesses. Normal bilateral intervertebral neural foramina. L2-3: Diffuse disc desiccation. Small central Schmorl''s node. Mild disc space narrowing and annular bulging. Normal bilateral facet joints. Normal central canal and bilateral lateral recesses. Normal bilateral intervertebral neural foramina. L3-4: Normal endplates. Diffuse disc desiccation. Normal disc height and morphology. Normal bilateral facet joints. Normal central canal and bilateral lateral recesses. Normal bilateral intervertebral neural foramina. L4-5: Mild anterior endplate spurring. Diffuse disc desiccation with mild posterior disc space narrowing and slight annular bulging. Mild central canal stenosis. Mild to moderate facet joint and ligament of flavum hypertrophy. Normal bilateral intervertebral neural foramina. L5-S1: Moderate to severe disc space narrowing with a diffuse disc bulge and moderate Modic endplate degenerative signal. Mild facet joint hypertrophy. Normal central canal and bilateral lateral recesses. Normal bilateral intervertebral neural foramina. Normal visualized sacral ala. Normal visualized paraspinous soft tissue structures. MRI/Spine Lumbar (Routine) IMPRESSION: 1. Multilevel degenerative changes, as described above. 2. Mild central canal stenosis at L4-L5 Electronically Signed: Arik Bird MD at 11:05 EDT ,
== END | disposition home or self-care (01) ==
LOC: MRI 07:33
PROVIDERS: PCP Preventive Medicine Occupational Medicine; Referring Provider Orthopaedic Surgery; Visit Provider Orthopaedic Surgery
DX: M51.26 Other intervertebral disc displacement, lumbar region (principal)
CPT/HCPCS: 72148

== ENCOUNTER 2023-07-25 14:13 | Emergency (ER) | payer MEDICARE, OTHER, SELFPAY ==
[2023-07-25 14:14] VITALS: BP 123/71; PULSE 68; RESP 16; TEMP 36.3; O2SAT 97; BMI 21.8
--- NOTE | 2023-07-25 14:30 | ED.RN ---
family doctor is Dr. Velazquez, not Dr. Wooten
--- NOTE | 2023-07-25 14:43 | CT_ITS ---
STUDY: CT Abdomen And Pelvis W/ Contrast Injection 07/25/2023 3:46 PM REASON FOR EXAM: Female, 73 years old. Abdominal pain abdominal pain, diarrhea Individualized dose optimization techniques were used for this CT. COMPARISON: 03.08.23. TECHNIQUE: CT Abdomen And Pelvis W/ Contrast Injection IV 100mL Isovue-370 FINDINGS: There are atherosclerotic calcifications of visualized coronary arteries. The visualized portions of the heart are within normal limits. Normal liver. There are surgical clips in the gallbladder fossa consistent with a prior cholecystectomy. Normal spleen. Normal pancreas. Normal bilateral adrenal glands. No acute findings of the right kidney. No acute findings of the left kidney. Focal wall thickening of the antrum of stomach. This can suggest a gastritis. Normal small intestine. Stool throughout the colon. The appendix is visualized and appears normal. Prior Rafael procedure noted. There are calcifications of the abdominal aorta. This is consistent for atherosclerotic disease. There is NO abdominal aortic aneurysm. Vascular workup can be obtained based on clinical correlation. Normal inferior vena cava. Subcentimeter mesenteric lymph nodes. Normal urinary bladder. There is absence of the uterus consistent with a prior hysterectomy. There is an umbilical hernia containing fat. Normal osseous structures. CT/Abdomen/Pelvis W IV Cont ONLY IMPRESSION: (NOT LISTED IN ORDER OF SIGNIFICANCE) Gastritis. Constipation. Other findings as above. Electronically Signed: Vasile Casanova MD at 15:50 EST ,
--- NOTE | 2023-07-25 14:46 | EX.ED.DYSGE1 ---
HPI <BRIANNE Hurley - Last Filed: 07/25/23 20:36> History of Present Illness Chief Complaint: Diarrhea Narrative Narrative: 73-year-old female said 1 week of diarrhea approximately 6 loose watery stools per day. Denies melena hematochezia. She has abdominal cramping and pain with decreased appetite and nausea but no vomiting. She was eating bland foods up until the last 2 or 3 days. She has a history of pancreatic insufficiency and takes Creon, fiber, and probiotics. She states she had no change in her diet or medications that would warrant this diarrhea. She reports having a normal colonoscopy about 5 years ago. No history of diverticulitis. She has had C. difficile about 5 years ago but does not recall if this feels the same. She has had no recent antibiotic use. [facility] <BRIANNE Hurley - Last Filed: 07/25/23 20:36> [facility] Medical History Acute kidney injury Allergies Anxiety Anxiety and depression Arthritis Atypical chest pain Breast lump Calcification of abdominal aorta Chronic back pain Coronary artery calcification De Quervain's tenosynovitis Depressive disorder Diverticulitis EIC (epidermal inclusion cyst) Elevated liver enzymes Epigastric pain Fibromyalgia H/O emotional problems History of back problems Hx of cataract Hx of headache Hydronephrosis Hypocalcemia Hypokalemia IBS (irritable bowel syndrome) Left knee pain Lumbar back pain Mass of urinary bladder Normocytic anemia Osteoarthritis Osteopenia Osteoporosis Panic disorder Positive P-ANCA titer Retroperitoneal lymphadenopathy Right knee pain TMJ arthralgia Umbilical hernia Urinary tract infection with hematuria Home Medications calcium carbonate 600 mg calcium (1,500 mg) tablet 1,200 mg PO DAILY 07/07/19 [History Last Taken 07/06/19] duloxetine 30 mg capsule,delayed release 30 mg PO TID 07/07/19 [History Last Taken 07/07/19] Lactobacillus acidophilus and rhamnosus 15 billion cell capsule 1 ea PO DAILY 09/09/19 [History Last Taken Unknown] alendronate 70 mg tablet 70 mg PO QWEEK 12/19/21 [History Last Taken Unknown] vitamin E 200 unit capsule 200 unit PO DAILY 12/19/21 [History Last Taken Unknown] vitamins A,C,F-mjgv-uzswkd 4,296 mcg-226 mg-90 mg capsule (PreserVision AREDS) 1 cap PO BID 12/19/21 [History Last Taken Unknown] cholestyramine (with sugar) 4 gram powder for susp in a packet 4 g PO HS #60 ea 03/10/23 [Rx Last Taken Unknown] sktvjy-gmbnledo-lxknios 36,000-114,000-180,000 unit capsule,delay rel (Creon) 1 cap PO TID #320 caps 03/23/23 [Rx Last Taken Unknown] bupropion HCl 150 mg 24 hr tablet, extended release (Wellbutrin XL) 150 mg PO QAM #60 tabs 06/10/23 [Rx Last Taken Unknown] cholecalciferol (vitamin D3) 75 mcg (3,000 unit) tablet 25 mcg PO DAILY 06/10/23 [History Last Taken Unknown] dicyclomine 20 mg tablet 20 mg PO BID PRN abdominal pain 7 days #14 tabs 07/25/23 [Rx Last Taken Unknown] Allergy/AdvReac Type Severity Reaction Status Date / Time codeine Allergy Rash Verified 07/25/23 14:14 ibandronate sodium AdvReac EXTREME Verified 07/25/23 14:14 [From [facility]] GERD plasic tape Allergy Mild Rash Uncoded 06/23/23 11:28 Family History Father Arthritis Grandmother Diabetes Grandfather Myocardial infarction Mother Myocardial infarction CVA (cerebral vascular accident) Other Fibromyalgia IBS (irritable bowel syndrome) Surgical History Cataract extraction status H/O: hysterectomy History of cholecystectomy History of repair of hiatal hernia Hx of colonoscopy Social History Smoking Status: Former smoker alcohol intake: never substance use type: does not use what type of physical activity do you participate in: none ROS <BRIANNE Hurley - Last Filed: 07/25/23 20:36> ROS ED ROS Narrative Constitutional: Negative for fever, chills, malaise. CVS: Negative for chest pain, syncope. Respiratory: Negative for shortness of breath. GI: Positive for abdominal pain, nausea, diarrhea. Negative for vomiting, constipation, melena, hematochezia. : Negative for dysuria, frequency. EXAM <BRIANNE Hurley - Last Filed: 07/25/23 20:36> Physical Exam Narrative Exam Narrative: CONST: Patient sitting in no acute distress. EYES: Normal inspection. NECK: Normal inspection. RESP: No respiratory distress, CTAB. CVS: Regular rate and rhythm, no murmur, no gallop. ABD: Soft with generalized abdominal tenderness, no guarding or rebound, nondistended. SKIN: Color normal, no rash, warm, dry, intact. EXTREMITIES: Normal appearance, no pedal edema. NEURO: Oriented x4. PSYCH: Normal affect. Const Vital Signs: 07/25/23 14:14 07/25/23 18:40 Temperature 97.3 F L Temperature Source Temporal Pulse Rate 68 62 Respiratory Rate 16 15 Blood Pressure 123/71 H 130/74 H Blood Pressure Mean 88 92 Pulse Ox 97 98 Oxygen Delivery Method Room Air <Dr. Richie Tello MD - Last Filed: 07/26/23 00:46> Physical Exam Const Vital Signs: 07/25/23 14:14 07/25/23 18:40 Temperature 97.3 F L Temperature Source Temporal Pulse Rate 68 62 Respiratory Rate 16 15 Blood Pressure 123/71 H 130/74 H Blood Pressure Mean 88 92 Pulse Ox 97 98 Oxygen Delivery Method Room Air MDM <BRIANNE Hurley - Last Filed: 07/25/23 20:36> MDM MDM Narrative Medical decision making narrative: History gathered from: Patient and family member Patient has had 1 week of abdominal cramping and diarrhea. She has had poor p.o. intake but no vomiting. She appears well and nontoxic and is afebrile with normal vital signs. No clinical signs of dehydration. Cardiopulmonary exam is normal. Abdomen is soft with generalized tenderness. CBC is WNL. Labs show potassium of 3.4, ALT 64, alk phos 171 otherwise normal. Her alkaline phosphatase is chronically elevated so I do not have concern for an acute liver process. Lipase is 16. CT shows possible gastritis and constipation with no other acute findings. Patient was unable to provide a stool sample while in the ED so I gave her an order for outpatient stool collection and a prescription for Bentyl and she was discharged in stable condition. Differential: Viral diarrhea, C. difficile, diverticulitis, obstruction, pancreatic insufficiency Lab Data Attestation: I reviewed the patient's lab results. Labs: Laboratory Results - last 24 hr 07/25/23 14:40 WBC 7.0 RBC 4.65 Hgb 13.9 Hct 41.4 MCV 89.0 MCH 29.9 MCHC 33.6 RDW Std Deviation 42.7 RDW Coeff of Nellie 13.0 Plt Count 202 MPV 10.4 Immature Gran % (Auto) 0.300 Neut % (Auto) 65.4 Lymph % (Auto) 19.9 [place] % (Auto) 10.0 Eos % (Auto) 3.0 Baso % (Auto) 1.4 H Absolute Neuts (auto) 4.6 Absolute Lymphs (auto) 1.39 Nucleated RBC % 0 Sodium 138 Potassium 3.4 L Chloride 109 H Carbon Dioxide 25.0 Anion Gap 4 L BUN 12 Creatinine 0.76 Estim Creat Clear Calc 46.90 Est GFR (MDRD) Af Amer 96 Est GFR (MDRD) Non-Af 79 BUN/Creatinine Ratio 15.7 Glucose 102 Calcium 9.0 Total Bilirubin 0.40 AST 18 ALT 64 H Alkaline Phosphatase 171 H Total Protein 6.7 Albumin 3.5 Globulin 3.2 Albumin/Globulin Ratio 1.1 Lipase 16 Radiography Diagnostic Testing: Clinical Impression(s) from Imaging Studies Abdomen/Pelvis CT 07/25/23 14:43 IMPRESSION: (NOT LISTED IN ORDER OF SIGNIFICANCE) Gastritis. Constipation. Other findings as above. Electronically Signed: Vasile Casanova MD at 15:50 EST Reading Location ID and State: [address] [place] [address] , Service support , <Dr. Richie Tello MD - Last Filed: 07/26/23 00:46> [facility] Lab Data Labs: Laboratory Results - last 24 hr 07/25/23 14:40 WBC 7.0 RBC 4.65 Hgb 13.9 Hct 41.4 MCV 89.0 MCH 29.9 MCHC 33.6 RDW Std Deviation 42.7 RDW Coeff of Nellie 13.0 Plt Count 202 MPV 10.4 Immature Gran % (Auto) 0.300 Neut % (Auto) 65.4 Lymph % (Auto) 19.9 [place] % (Auto) 10.0 Eos % (Auto) 3.0 Baso % (Auto) 1.4 H Absolute Neuts (auto) 4.6 Absolute Lymphs (auto) 1.39 Nucleated RBC % 0 Sodium 138 Potassium 3.4 L Chloride 109 H Carbon Dioxide 25.0 Anion Gap 4 L BUN 12 Creatinine 0.76 Estim Creat Clear Calc 46.90 Est GFR (MDRD) Af Amer 96 Est GFR (MDRD) Non-Af 79 BUN/Creatinine Ratio 15.7 Glucose 102 Calcium 9.0 Total Bilirubin 0.40 AST 18 ALT 64 H Alkaline Phosphatase 171 H Total Protein 6.7 Albumin 3.5 Globulin 3.2 Albumin/Globulin Ratio 1.1 Lipase 16 Radiography Diagnostic Testing: Clinical Impression(s) from Imaging Studies Abdomen/Pelvis CT 07/25/23 14:43 IMPRESSION: (NOT LISTED IN ORDER OF SIGNIFICANCE) Gastritis. Constipation. Other findings as above. Electronically Signed: Vasile Casanova MD at 15:50 EST , Treatment and Re-Evaluation :: I have personally performed a face to face assessment of the patient and have reviewed the MAXIME Note. I performed a substantive portion of the visit including all aspects of the following. My jackson findings include: History: Patient presents with about a week of diarrhea. Its up to about 6 times a day. No blood or black. It is watery. It is not excessively malodorous. She had C. difficile about 5 years ago and this does not act like that. She also has some just diffuse abdominal aching but not really pain. It does not localize to one side. She also has pancreatic insufficiency but has had a stable diet and is taking her meds. She did have an episode like this in February or March and at that point cholestyramine was added to her regimen. She has had no fevers. Exam: Patient is very nontoxic in appearance. Minimally dry membranes. Heart is regular. Abdomen is soft has good bowel sounds is not distended. She states the little bit sore everywhere I press but no significant objective tenderness Medical Decision Making: Patient had blood work done. We will try to send for C. difficile colitis. We will do CT scan. Discharge Plan Triage Chief Complaint: Diarrhea ED Midlevel Provider: Callie Salmeron ED Provider: Richie Tello Dx/Rx/DC Orders Clinical Impression: Acute diarrhea Instructions: ED Diarrhea, Unknown Cause Prescriptions: New dicyclomine 20 mg tablet 20 mg PO BID PRN (Reason: abdominal pain) 7 Days Qty: 14 0RF No Action PreserVision AREDS 14,320-226-200 hdjm-oc-qshz capsule 1 cap PO BID vitamin E 200 unit capsule 200 unit PO DAILY bupropion HCl [Wellbutrin XL] 150 mg tablet extended release 24 hr 150 mg PO QAM Qty: 60 1RF cholecalciferol (vitamin D3) 75 mcg (3,000 unit) tablet 25 mcg PO DAILY duloxetine 30 MG capsule 30 mg PO TID calcium carbonate 600 MG tablet 1,200 mg PO DAILY alendronate 70 mg tablet 70 mg PO QWEEK L. acidophilus-L. rhamnosus 1 EACH capsule 1 ea PO DAILY cholestyramine (with sugar) 4 gram powder in packet 4 g PO HS Qty: 60 2RF Creon 36,000-114,000- 180,000 unit capsule,delayed release(DR/EC) 1 cap PO TID Qty: 320 11RF Rx Instructions: administer with meals and/or snacks Primary Care Provider: Katalina Velazquez Referrals: Jun Arizmendi DO [Non-Staff] - Activity Restrictions/Additional Instructions: Please stay hydrated, take Tylenol or Bentyl as needed for pain, and follow-up with your primary care or GI doctor to check on the stool culture results. If symptoms worsen or you feel you are dehydrated come back to the ER Disposition Disposition: Home, Self Care Discharge Date/Time: 07/25/23 18:41
[2023-07-25 14:50] LABS: Absolute Lymphocyte Count 1.39 X10^3/uL (0.83-4.51); Absolute Neutrophil Count 4.6 X10^3/uL (2.0-7.7); Basophil% 1.4 % (0-1); Eosinophil# 0.21 X10^3/uL; Hematocrit 41.4 % (37-47); Hemoglobin 13.9 g/dL (12.0-15.0); Lymphocyte # 1.39 X10^3/ul (0.83-4.51); Lymphocyte % 19.9 % (19-41); Mean Corp Hgb Conc 33.6 g/dL (32-36); Mean Corpuscular Hgb 29.9 pg (27.0-32.0); Mean Platelet Vol. 10.4 fl (6.2-12.0); NRBC Flagged by Analyzer 0 % (0-5); Neutrophil # 4.57 X10^3/uL (2.7-7.7); Neutrophil % 65.4 % (47-70); Platelet Count 202 K/mm3 (150-450); RBC Distribution Width SD 42.7 fl (35.1-43.9); Red Blood Count 4.65 M/mm3 (4.2-5.4)
[2023-07-25] MEDS: 0.9% Normal Saline (1000mL) 1,000 ML 999 ML IV (14:50)
[2023-07-25 15:06] LABS: ALB/GLOB Ratio 1.1 RATIO (0.9-2.4); AST(SGOT) 18 U/L (15-37); Alanine Aminotransfer ALT/SGPT 64 U/L (13-56); Albumin, Serum 3.5 g/dL (3.2-5.0); Alkaline Phosphatase 171 U/L (45-117); Anion Gap 4 (5-15); BUN 12 mg/dL (7-18); BUN/Creat Ratio 15.7 RATIO (10-20); Chloride 109 mmol/L (98-107); Creatinine, Serum 0.76 mg/dL (0.55-1.02); EST Glomerular Filtration Rate 79 mL/min (>60); Est Glom Filt Rate - Afr Amer 96 mL/min (>60); Globulin 3.2 g/dL (2.2-4.2); Glucose 102 mg/dL (74-106); Lipase 16 U/L (13-75); Potassium 3.4 mmol/L (3.5-5.1); Protein, Total 6.7 g/dL (6.4-8.2); Sodium Level 138 mmol/L (136-145)
[2023-07-25] MEDS: Dicyclomine 10 MG Capsule 20 MG PO (16:36)
[2023-07-25 18:40] VITALS: BP 130/74; PULSE 62; RESP 15; O2SAT 98
== END 2023-07-25 18:41 | disposition home or self-care (01) ==
LOC: ED 16:31
PROVIDERS: Physician Assistant; Emergency Provider Emergency Medicine; PCP Internal Medicine; Visit Provider Emergency Medicine
DX: R19.7 Diarrhea, unspecified (principal); Z87.891 Personal history of nicotine dependence; F41.8 Other specified anxiety disorders; M81.0 Age-related osteoporosis without current pathological fracture; Z79.899 Other long term (current) drug therapy; Z90.710 Acquired absence of both cervix and uterus; Z90.49 Acquired absence of other specified parts of digestive tract
CPT/HCPCS: 74177; 80053; 83690; 85025; 96360; 99282; J7030; Q9967; A4216

== ENCOUNTER → 2023-07-26 | Outpatient (CLI) | payer MEDICARE, OTHER, SELFPAY | END | disposition home or self-care (01) | PROVIDERS: Internal Medicine Gastroenterology; PCP Internal Medicine; Visit Provider Physician Assistant | DX: R19.7 Diarrhea, unspecified (principal); A04.72 Enterocolitis due to Clostridium difficile, not specified as recurrent | CPT/HCPCS: 87493 ==

== ENCOUNTER 2023-08-06 11:13 | Outpatient (CLI) | payer MEDICARE, OTHER, SELFPAY ==
[2023-08-06 11:41] VITALS: BP 113/62; PULSE 66; RESP 16; TEMP 36.8; O2SAT 99; BMI 22.4
[2023-08-06] MEDS: Romosozumab-AQQG 210 MG/2.34 ML Syringe SQ (11:52)
== END 2023-08-06 11:14 | disposition home or self-care (01) ==
LOC: MEDOUTP 11:14
PROVIDERS: PCP Internal Medicine; Referring Provider Internal Medicine Endocrinology, Diabetes & Metabolism; Visit Provider Internal Medicine Endocrinology, Diabetes & Metabolism
DX: M81.0 Age-related osteoporosis without current pathological fracture (principal)
CPT/HCPCS: 96372; J3111

== ENCOUNTER 2023-09-03 11:57 | Outpatient (CLI) | payer MEDICARE, OTHER, SELFPAY ==
[2023-09-03 12:32] VITALS: BP 118/66; PULSE 64; RESP 14; TEMP 36.6; O2SAT 97; BMI 21.4
[2023-09-03] MEDS: Romosozumab-AQQG 210 MG/2.34 ML Syringe SC (12:34)
== END 2023-09-03 11:58 | disposition home or self-care (01) ==
LOC: MEDOUTP 11:57
PROVIDERS: PCP Internal Medicine; Referring Provider Internal Medicine Endocrinology, Diabetes & Metabolism; Visit Provider Internal Medicine Endocrinology, Diabetes & Metabolism
DX: M81.0 Age-related osteoporosis without current pathological fracture (principal)
CPT/HCPCS: 96372; J3111

== ENCOUNTER 2023-10-01 11:54 | Outpatient (CLI) | payer MEDICARE, OTHER, SELFPAY ==
[2023-10-01 12:01] VITALS: BP 120/68; PULSE 70; RESP 16; TEMP 36.4; O2SAT 100; BMI 21.6
--- OUTSIDE RECORDS SUMMARY | 2023-10-01 12:03 | XMS RPT_ITS | CCD ---
Author Name Unknown Address [address] [place] [address] Organization [facility] Care Team Providers Care Issuer Name Role Phone LILLY VICENTE DO Primary Care Physician Allergies Allergy Classification Reported Allergen(s) Allergy Type Date of Onset Reaction(s) Facility (1 source) Codeine; Translations: [codeine] Drug Allergy [facility] Work Phone: (1 source) Ibandronate; Translations: [ibandronate] Drug Allergy Gastritis (disorder) [facility] Work Phone: Medications Current Medications Medication Drug Class(es) Dates Sig (Normalized) Sig (Original) alendronic acid 70 mg oral tablet (1 source) Bisphosphonate Start: 05-13-2021 alendronate 70 mg oral tablet Dose : 70 mg = 1 tab(s), Oral, qWeek, # 12 tab(s), 3 Refill(s), Pharmacy: [facility], Osteoporosis, 167.5, cm, 04/04/21 11:09:00 EDT, Height, kg, 04/04/21 11:09:00 EDT, Dosing Weight Start Date: 05/13/21 Status: Ordered Aspirin (1 source) Platelet Aggregation Inhibitor, Nonsteroidal Anti-inflammatory Drug Start: 06-13-2019 Ecotrin 325 mg oral delayed release tablet Dose : 325 mg = 1 tab(s), Oral, qDay, 0 Refill(s) Start Date: 06/13/19 Status: Ordered busPIRone hydrochloride 15 mg oral tablet (1 source) Start: 04-04-2021 busPIRone 15 mg oral tablet Dose : 15 mg = 1 tab(s), Oral, BID, PRN Anxiety, Start with one third tab p.o. daily and increase dose as needed and as tolerated, # 60 tab(s), 1 Refill(s), Pharmacy: [facility], Panic disorder, 167.5, cm, 04/04/21 11:09:00 EDT, Height, kg,... Start Date: 04/04/21 Status: Ordered Calcium (1 source) Phosphate Binder, Calcium Start: 07-19-2019 calcium (as carbonate) 600 mg oral tablet Dose : 600 mg = 1 tab(s), Oral, BID, 0 Refill(s) Start Date: 07/19/19 Status: Ordered DULoxetine 30 mg delayed release oral capsule (1 source) Serotonin and Norepinephrine Reuptake Inhibitor Start: 12-27-2020 DULoxetine 30 mg oral delayed release capsule Dose : 30 mg = 1 cap(s), Oral, TID, # 270 cap(s), 3 Refill(s), Pharmacy: [facility], 167, cm, 12/27/20 10:03:00 EDT, Height, kg, 12/27/20 10:03:00 EDT, Dosing Weight Start Date: 12/27/20 Status: Ordered loperamide hydrochloride 2 mg oral tablet (1 source) Opioid Agonist Start: 06-13-2019 take 1 tablet by mouth once, then take 1 tablet by mouth twice daily Imodium A-D 2 mg oral tablet Dose : 2 mg = 1 tab(s), Oral, BID, # 180 tab(s), 3 Refill(s), Pharmacy: [facility], IBS (irritable bowel syndrome) Start Date: 06/13/19 Status: Ordered Multivitamin preparation (1 source) Start: 06-13-2019 take 1 tablet by mouth once daily Multivitamin Dose = 1 tab(s), Oral, Daily, 0 Refill(s) Start Date: 06/13/19 Status: Ordered omeprazole 20 mg delayed release oral capsule (1 source) Proton Pump Inhibitor Start: 10-03-2021 omeprazole 20 mg oral delayed release capsule Dose : 20 mg = 1 cap(s), Oral, qDay, # 90 cap(s), 1 Refill(s), Pharmacy: [facility], GERD without esophagitis, 166, cm, 10/03/21 11:01:00 EST, Height, kg, 10/03/21 11:01:00 EST, Dosing Weight Start Date: 10/03/21 Status: Ordered Probiotic (1 source) Start: 12-27-2019 Probiotic Daily, 0 Refill(s) Start Date: 12/27/19 Status: Ordered Vitamin D3 (1 source) Start: 07-19-2019 Vitamin D3 Vitamin D3, pt not sure of strength, 0 Refill(s) Start Date: 07/19/19 Status: Ordered Problems Problem Classification Problem Date Documented Da te Episodic/Chronic Abdominal hernia (1 source) Umbilical hernia 07-19-2019 Episodic Anxiety disorders (1 source) Panic disorder 06-13-2019 Chronic Coronary atherosclerosis and other heart disease (1 source) Calcification of coronary artery 07-19-2019 Chronic Deficiency and other anemia (1 source) Normocytic anemia 07-19-2019 Episodic Disorders of teeth and jaw (1 source) Arthralgia of temporomandibular joint 02-16-2020 Episodic Diverticulosis and diverticulitis (1 source) Diverticulosis of large intestine 07-19-2019 Chronic Esophageal disorders (1 source) Gastroesophageal reflux disease without esophagitis 06-13-2019 Chronic Lymphadenitis (1 source) Retroperitoneal lymphadenopathy 07-26-2019 Episodic Mood disorders (1 source) Depressive disorder 12-27-2019 Chronic Nonspecific chest pain (1 source) Atypical chest pain 09-22-2021 Episodic Osteoporosis (1 source) Osteoporosis 03-31-2019 Chronic Other circulatory disease (1 source) Abnormality of abdominal aorta 07-19-2019 Chronic Other connective tissue disease (1 source) Primary fibromyalgia syndrome 06-13-2019 Episodic Other diseases of bladder and urethra (1 source) Mass of urinary bladder 07-31-2019 Chronic Other diseases of kidney and ureters (1 source) Hydronephrosis 07-26-2019 Episodic Other gastrointestinal disorders (1 source) Irritable bowel syndrome 06-13-2019 Chronic Other liver diseases (1 source) Elevated liver enzymes level 07-27-2019 Episodic Other non-traumatic joint disorders (1 source) Knee pain 06-28-2020 Episodic Other skin disorders (1 source) Epidermoid cyst 10-03-2021 Episodic Spondylosis; intervertebral disc disorders; other back problems (1 source) Low back pain 10-03-2021 Episodic Results Test Name Value Interpretation Reference Range Facil ity Encounters Encounter Date Encounter Type Care Provider Facility Start: 10-03-2021 End: 10-03-2021 Patient encounter procedure LILLY VICENTE DO [facility] Procedures Date Procedure Procedure Detail Performing Clinician Start: 05-24-2018 Mammography LILLY VILLAVICENCIO DO Immunizations Immunization Date Immunization Notes Care Provider [facility] 06-28-2020 influenza, injectabl e, quadrivalent, preservative free; Translations: [Fluarix PF Quadrivalent ] LILLY VICENTE DO [facility] 04-18-2018 pneumococcal polysaccharide vaccine, 23 valent LILLY VICENTE [employer] [facility] 02-02-2017 pneumococcal conjuga te vaccine, 13 valent LILLY VICENTE [employer] [facility] 08-14-2014 zoster vaccine, live LILLY VICENTE [employer] [facility] Social History Date Type Detail Facility Start: 04-04-2021 Heavy tobacco smoker (f inding) [facility] Clinical Note 11-20-2021 Note Date & Type Note Facility 11-20-2021 Note . MICRO - Microbiology PROCEDURE: Urine Culture [*1] SOURCE: Urine, Clean Catch BODY SITE: COLLECTED DATE/TIME: 11/18/2021 10:19 EST RECEIVED DATE/TIME: 11/18/2021 20:28 EST START DATE/TIME: 11/18/2021 20:28 EST FREE TEXT SOURCE: FINAL REPORTS Final Report [] Verified Date/Time/Personnel: 11/20/2021 08:42 EST No growth at 48 hours. PRELIMINARY REPORTS Preliminary Report [] Verified Date/Time/Personnel: 11/19/2021 12:00 EST No growth to date Performing Locations *1: This test was performed at: [facility], [address] [place] [address], [phone] , [facility] Evaluation + Plan note Radiology Note Date & Type Note Facility Evaluation + Plan note Future Appointments Appointment Date:04/03/2022 11:00:00 AM Scheduled Provider:LILLY VICENTE DO Location:[facility] Appointment Type:PC OV Future Scheduled TestsNM Myocardial Spect Rest/Stress 09/22/21NM Myocardial Spect Rest/Stress 10/03/21XR Spine Lumbar W/Obliques 4 Views 10/03/21 [facility] Hospital course Narrative Note Date & Type Note Facility Hospital course Narrative No data available for this section [facility] Hospital Discharge instructions Note Date & Type Note Facility Hospital Discharge instructions No data available for this section [facility] Summary Purpose Family History No Family History Records FoundNo Family History Records Found Advance Directives No Advanced Directives Records FoundNo Advanced Directives Records Found Additional Source Comments INFORMATION SOURCE (unrecogn ized section and content) DATE CREATED AUTHOR AUTHOR'S ORGANIZ ATION 11/23/2021 [facility] ([place]) FOR RECORDS PERTAINING TO PATIENTS WHO ARE OR HAVE BEEN ENROLLED IN A CHEMICAL DEPENDENCY/SUBSTANCEABUSE PROGRAM, SOME INFORMATION MAY BE OMITTED. This clinical summary was aggregated from multiple sources. Caution should be exercised in using it in the provision of clinical care. This summary normalizes information from multiple sources, and as a consequence, information in this document may materially change the coding, format and clinical context of patient data. In addition, data may be omitted in some cases. CLINICAL DECISIONS SHOULD BE BASED ON THE PRIMARY CLINICAL RECORDS. [employer] [facility]. provides no warranty or guarantee of the accuracy or completeness of information in this document.
[2023-10-01] MEDS: Romosozumab-AQQG 210 MG/2.34 ML Syringe SC (12:05)
== END 2023-10-01 11:55 | disposition home or self-care (01) ==
LOC: MEDOUTP 11:54
PROVIDERS: PCP Internal Medicine; Referring Provider Internal Medicine Endocrinology, Diabetes & Metabolism; Visit Provider Internal Medicine Endocrinology, Diabetes & Metabolism
DX: M81.0 Age-related osteoporosis without current pathological fracture (principal)
CPT/HCPCS: 96372; J3111

== ENCOUNTER 2023-10-29 12:11 | Outpatient (CLI) | payer MEDICARE, OTHER, SELFPAY ==
[2023-10-29 12:22] VITALS: BP 139/56; PULSE 61; RESP 16; TEMP 36.3; O2SAT 97; BMI 20.9
[2023-10-29] MEDS: Romosozumab-AQQG 210 MG/2.34 ML Syringe SC (12:25)
--- OUTSIDE RECORDS SUMMARY | 2023-10-29 12:27 | XMS RPT_ITS | CCD ---
Author Name Unknown Address [address] [place] [address] Organization [facility] Care Team Providers Care Washroom Operator Name Role Phone LILLY VICENTE DO Primary Care Physician [phone] Allergies Allergy Classification Reported Allergen(s) Allergy Type Date of Onset Reaction(s) Facility (1 source) Codeine; Translations: [codeine] Drug Allergy [facility] Work Phone: (1 source) Ibandronate; Translations: [ibandronate] Drug Allergy Gastritis (disorder) [facility] Work Phone: Medications Current Medications Medication Drug Class(es) Dates Sig (Normalized) Sig (Original) alendronic acid 70 mg oral tablet (1 source) Bisphosphonate Start: 05-13-2021 alendronate 70 mg oral tablet Dose : 70 mg = 1 tab(s), Oral, qWeek, # 12 tab(s), 3 Refill(s), Pharmacy: [facility], Osteoporosis, 167.5, cm, 04/04/21 [...] tolerated, # 60 tab(s), 1 Refill(s), Pharmacy: [facility], Panic disorder, 167.5, cm, [...] TID, # 270 cap(s), 3 Refill(s), Pharmacy: [facility], 167, cm, 12/27/20 10:03:00 [...] BID, # 180 tab(s), 3 Refill(s), Pharmacy: [facility], IBS (irritable bowel syndrome) [...] qDay, # 90 cap(s), 1 Refill(s), Pharmacy: [facility], GERD without esophagitis, 166, [...] 10-03-2021 Patient encounter procedure LILLY VICENTE DO [facility] Procedures Date Procedure Procedure Detail Performing Clinician Start: 05-24-2018 Mammography LILLY VILLAVICENCIO DO Immunizations Immunization Date Immunization Notes Care Provider Fa [facility] 06-28-2020 influenza, injectabl e, quadrivalent, preservative free; Translations: [Fluarix PF Quadrivalent ] LILLY VICENTE DO [facility] 04-18-2018 pneumococcal polysaccharide vaccine, 23 valent LILLY VICENTE [employer] [facility] 02-02-2017 pneumococcal conjuga te vaccine, 13 valent LILLY VICENTE [employer] [facility] 08-14-2014 zoster vaccine, live LILLY VICENTE [employer] [facility] Social History Date Type Detail Facility Start: 04-04-2021 Heavy tobacco smoker (f inding) [facility] Clinical Note 11-20-2021 Note Date & [...] Locations *1: This test was performed at: [facility], [address] [place] [address], [phone] , [facility] ([place]) Evaluation + Plan note Radiology Note Date & Type Note Facility Evaluation + Plan note Future Appointments Appointment Date:04/03/2022 11:00:00 AM Scheduled Provider:LILLY VICENTE DO Location:[facility] Appointment Type:PC OV Future Scheduled TestsNM Myocardial Spect Rest/Stress 09/22/21NM Myocardial Spect Rest/Stress 10/03/21XR Spine Lumbar W/Obliques 4 Views 10/03/21 [facility] Hospital course Narrative Note Date & Type Note Facility Hospital course Narrative No data available for this section [facility] Hospital Discharge instructions Note Date & Type Note Facility Hospital Discharge instructions No data available for this section [facility] Summary Purpose Family History No Family History Records FoundNo Family History Records Found Advance Directives No Advanced Directives Records FoundNo Advanced Directives Records Found Additional Source Comments INFORMATION SOURCE (unrecogn ized section and content) DATE CREATED AUTHOR AUTHOR'S ORGANIZ ATION 11/23/2021 [facility] ([place]) FOR RECORDS PERTAINING TO PATIENTS WHO ARE [...] BE BASED ON THE PRIMARY CLINICAL RECORDS. [employer] [facility]. provides no warranty or guarantee of the accuracy or completeness of information in this document.
== END 2023-10-29 12:12 | disposition home or self-care (01) ==
LOC: MEDOUTP 12:11
PROVIDERS: PCP Internal Medicine; Referring Provider Internal Medicine Endocrinology, Diabetes & Metabolism; Visit Provider Internal Medicine Endocrinology, Diabetes & Metabolism
DX: M81.0 Age-related osteoporosis without current pathological fracture (principal)
CPT/HCPCS: 96372; J3111

== ENCOUNTER 2023-11-26 12:30 | Outpatient (CLI) | payer MEDICARE, OTHER, SELFPAY ==
[2023-11-26 12:35] VITALS: BP 135/71; PULSE 63; RESP 16; TEMP 35.9; O2SAT 98; BMI 21.6
[2023-11-26] MEDS: Romosozumab-AQQG 210 MG/2.34 ML Syringe SC (12:38)
--- OUTSIDE RECORDS SUMMARY | 2023-11-26 17:24 | XMS RPT_ITS | CCD ---
Author Name Unknown Address [address] [place] [address] Organization [facility] Care Team Providers Care Proofreader Name Role Phone LILLY VICENTE DO Primary Care Physician [phone] Allergies Allergy Classification Reported Allergen(s) Allergy Type Date of Onset Reaction(s) Facility (1 source) Codeine; Translations: [codeine] Drug Allergy [facility] Work Phone: (1 source) Ibandronate; Translations: [ibandronate] Drug Allergy Gastritis (disorder) [facility] Work Phone: Medications Current Medications Medication Drug Class(es) Dates Sig (Normalized) Sig (Original) alendronic acid 70 mg oral tablet (1 source) Bisphosphonate Start: 05-13-2021 alendronate 70 mg oral tablet Dose : 70 mg = 1 tab(s), Oral, qWeek, # 12 tab(s), 3 Refill(s), Pharmacy: [facility], Osteoporosis, 167.5, cm, 04/04/21 11:09:00 [...] tolerated, # 60 tab(s), 1 Refill(s), Pharmacy: [facility], Panic disorder, 167.5, cm, 04/04/21 [...] TID, # 270 cap(s), 3 Refill(s), Pharmacy: [facility], 167, cm, 12/27/20 10:03:00 EDT, [...] BID, # 180 tab(s), 3 Refill(s), Pharmacy: [facility], IBS (irritable bowel syndrome) Start [...] qDay, # 90 cap(s), 1 Refill(s), Pharmacy: [facility], GERD without esophagitis, 166, cm, [...] 10-03-2021 Patient encounter procedure LILLY VICENTE DO [facility] Procedures Date Procedure Procedure Detail Performing Clinician Start: 05-24-2018 Mammography LILLY VILLAVICENCIO DO Immunizations Immunization Date Immunization Notes Care Provider Fa [facility] 06-28-2020 influenza, injectabl e, quadrivalent, preservative free; Translations: [Fluarix PF Quadrivalent ] LILLY VICENTE DO [facility] 04-18-2018 pneumococcal polysaccharide vaccine, 23 valent LILLY VICENTE [employer] [facility] 02-02-2017 pneumococcal conjuga te vaccine, 13 valent LILLY VICENTE [employer] 08-14-2014 zoster vaccine, live LILLY VICENTE [employer] [facility] Social History Date Type Detail Facility Start: 04-04-2021 Heavy tobacco smoker (f inding) [facility] Clinical Note 11-20-2021 Note Date & [...] Locations *1: This test was performed at: [facility], [address] [place] [address], [phone] , [facility] ([place]) Evaluation + Plan note Radiology Note Date & Type Note Facility Evaluation + Plan note Future Appointments Appointment Date:04/03/2022 11:00:00 AM Scheduled Provider:LILLY VICENTE DO Location:[facility] Appointment Type:PC OV Future Scheduled TestsNM Myocardial Spect Rest/Stress 09/22/21NM Myocardial Spect Rest/Stress 10/03/21XR Spine Lumbar W/Obliques 4 Views 10/03/21 [facility] Hospital course Narrative Note Date & Type Note Facility Hospital course Narrative No data available for this section [facility] Hospital Discharge instructions Note Date & Type Note Facility Hospital Discharge instructions No data available for this section [facility] Summary Purpose Family History No Family History Records FoundNo Family History Records Found Advance Directives No Advanced Directives Records FoundNo Advanced Directives Records Found Additional Source Comments INFORMATION SOURCE (unrecogn ized section and content) DATE CREATED AUTHOR AUTHOR'S ORGANIZ ATION 11/23/2021 [facility] ([place]) FOR RECORDS PERTAINING TO PATIENTS WHO ARE [...] BE BASED ON THE PRIMARY CLINICAL RECORDS. [employer] [facility]. provides no warranty or guarantee of the accuracy or completeness of information in this document.
== END 2023-11-26 12:31 | disposition home or self-care (01) ==
LOC: MEDOUTP 12:30
PROVIDERS: PCP Internal Medicine; Referring Provider Internal Medicine Endocrinology, Diabetes & Metabolism; Visit Provider Internal Medicine Endocrinology, Diabetes & Metabolism
DX: M81.0 Age-related osteoporosis without current pathological fracture (principal)
CPT/HCPCS: 96372; J3111

== ENCOUNTER → 2023-11-26 | Outpatient (CLI) | payer MEDICARE, OTHER, SELFPAY ==
--- NOTE | 2023-11-26 12:15 | BI_ITS ---
MAMMOGRAPHY - BILATERAL SCREENING REASON FOR EXAM: Female, 73 years old. Routine annual screening examination. PERTINENT HISTORY: Non-contributory. Remote left excisional breast biopsy. TECHNIQUE: Digital bilateral breast jonn (3D mammographic acquisition) in the CC and MLO projections. 2-D mediolateral oblique (MLO) and craniocaudad (CC) views of both breasts were obtained. CAD: Full Field Digital Mammography with Computer Added Detection was performed. COMPARISON: Comparison is made with prior study dated July 05, 2023 and March 25, 2020. FINDINGS: Breast Composition: The breasts are extremely dense, which lowers the sensitivity of mammography. There are no dominant masses or suspicious calcifications. No other significant abnormalities are identified. There has been no significant change since the prior study. BI/SCRN MAMM (CAD)W/JONN BILAT IMPRESSION: Stable bilateral screening mammogram. Yearly follow-up mammogram recommended. (A) ASSESSMENT CATEGORY: BIRADS Category 1: Negative. A letter regarding these results will be sent to the patient by the facility within 30 days. Approximately 10% of breast cancers are not detected by mammography. A normal mammogram should not delay biopsy of a clinically suspicious abnormality. [id number] Electronically Signed: Kei Falcon MD at 13:11 EDT ,
--- OUTSIDE RECORDS SUMMARY | 2023-11-26 16:52 | XMS RPT_ITS | CCD ---
Author Name Unknown Address [address] [place] [address] Organization [facility] Care Team Providers Care Packing Supervisor Name Role Phone LILLY VICENTE DO Primary Care Physician [phone] Allergies Allergy Classification Reported Allergen(s) Allergy Type Date of Onset Reaction(s) Facility (1 source) Codeine; Translations: [codeine] Drug Allergy [facility] Work Phone: (1 source) Ibandronate; Translations: [ibandronate] Drug Allergy Gastritis (disorder) [facility] Work Phone: Medications Current Medications Medication Drug Class(es) Dates Sig (Normalized) Sig (Original) alendronic acid 70 mg oral tablet (1 source) Bisphosphonate Start: 05-13-2021 alendronate 70 mg oral tablet Dose : 70 mg = 1 tab(s), Oral, qWeek, # 12 tab(s), 3 Refill(s), Pharmacy: [facility], Osteoporosis, 167.5, cm, 04/04/21 11:09:00 [...] tolerated, # 60 tab(s), 1 Refill(s), Pharmacy: [facility], Panic disorder, 167.5, cm, 04/04/21 [...] TID, # 270 cap(s), 3 Refill(s), Pharmacy: [facility], 167, cm, 12/27/20 10:03:00 EDT, [...] BID, # 180 tab(s), 3 Refill(s), Pharmacy: [facility], IBS (irritable bowel syndrome) Start [...] qDay, # 90 cap(s), 1 Refill(s), Pharmacy: [facility], GERD without esophagitis, 166, cm, [...] 10-03-2021 Patient encounter procedure LILLY VICENTE DO [facility] Procedures Date Procedure Procedure Detail Performing Clinician Start: 05-24-2018 Mammography LILLY VILLAVICENCIO DO Immunizations Immunization Date Immunization Notes Care Provider Fa [facility] 06-28-2020 influenza, injectabl e, quadrivalent, preservative free; Translations: [Fluarix PF Quadrivalent ] LILLY VICENTE DO [facility] 04-18-2018 pneumococcal polysaccharide vaccine, 23 valent LILLY VICENTE [employer] [facility] 02-02-2017 pneumococcal conjuga te vaccine, 13 valent LILLY VICENTE [employer] [facility] 08-14-2014 zoster vaccine, live LILLY VICENTE [employer] [facility] Social History Date Type Detail Facility Start: 04-04-2021 Heavy tobacco smoker (f inding) [facility] Clinical Note 11-20-2021 Note Date & Type [...] Locations *1: This test was performed at: [facility], [address] [place] [address], [phone] , [facility] ([place]) Evaluation + Plan note Radiology Note Date & Type Note Facility Evaluation + Plan note Future Appointments Appointment Date:04/03/2022 11:00:00 AM Scheduled Provider:LILLY VICENTE DO Location:[facility] Appointment Type:PC OV Future Scheduled TestsNM Myocardial Spect Rest/Stress 09/22/21NM Myocardial Spect Rest/Stress 10/03/21XR Spine Lumbar W/Obliques 4 Views 10/03/21 [facility] Hospital course Narrative Note Date & Type Note Facility Hospital course Narrative No data available for this section [facility] Hospital Discharge instructions Note Date & Type Note Facility Hospital Discharge instructions No data available for this section [facility] Summary Purpose Family History No Family History Records FoundNo Family History Records Found Advance Directives No Advanced Directives Records FoundNo Advanced Directives Records Found Additional Source Comments INFORMATION SOURCE (unrecogn ized section and content) DATE CREATED AUTHOR AUTHOR'S ORGANIZ ATION 11/23/2021 [facility] ([place]) FOR RECORDS PERTAINING TO [...] BE BASED ON THE PRIMARY CLINICAL RECORDS. [employer] [facility]. provides no warranty or guarantee of the accuracy or completeness of information in this document.
== END | disposition home or self-care (01) ==
LOC: OPBI 12:14
PROVIDERS: PCP Internal Medicine; Visit Provider Internal Medicine
DX: Z12.31 Encounter for screening mammogram for malignant neoplasm of breast (principal)
CPT/HCPCS: 77063; 77067

== ENCOUNTER → 2023-12-16 | Outpatient (CLI) | payer MEDICARE, OTHER, SELFPAY ==
[2023-12-16 16:55] LABS: Anion Gap 5 (5-15); BUN 14 mg/dL (7-18); BUN/Creat Ratio 18.5 RATIO (10-20); Calcium,Total 8.8 mg/dL (8.5-10.1); Chloride 107 mmol/L (98-107); Creatinine, Serum 0.76 mg/dL (0.55-1.02); EST Glomerular Filtration Rate 80 mL/min (>60); Est Glom Filt Rate - Afr Amer 97 mL/min (>60); Glucose 131 mg/dL (74-106); Sodium Level 139 mmol/L (136-145)
== END | disposition home or self-care (01) ==
LOC: BIMLAB 14:54
PROVIDERS: PCP Internal Medicine; Referring Provider Internal Medicine; Visit Provider Internal Medicine
DX: K86.81 Exocrine pancreatic insufficiency (principal)
CPT/HCPCS: 36415; 80048

== ENCOUNTER 2023-12-24 08:19 | Outpatient (CLI) | payer MEDICARE, OTHER, SELFPAY ==
[2023-12-24 08:45] VITALS: BP 130/66; PULSE 66; RESP 16; TEMP 36.5; O2SAT 97
[2023-12-24] MEDS: Romosozumab-AQQG 210 MG/2.34 ML Syringe SC (08:54)
== END 2023-12-24 08:20 | disposition home or self-care (01) ==
LOC: MEDOUTP 08:19
PROVIDERS: PCP Internal Medicine; Referring Provider Internal Medicine Endocrinology, Diabetes & Metabolism; Visit Provider Internal Medicine Endocrinology, Diabetes & Metabolism
DX: M81.0 Age-related osteoporosis without current pathological fracture (principal)
CPT/HCPCS: 96372; J3111

== ENCOUNTER → 2024-01-14 | Outpatient (CLI) | payer MEDICARE, OTHER, SELFPAY ==
--- NOTE | 2024-01-14 13:25 | US_ITS ---
HISTORY: Posterior knee/popliteal fossa pain and tightness. TECHNIQUE: Routine and color duplex imaging of the left popliteal fossa. 16 images. COMPARISON: XR 07/11/2020 FINDINGS: No cyst or solid mass identified. US/Ext Non Vasc Limited/Soft Tiss IMPRESSION: Unremarkable examination. Electronically Signed: Ofelia Moseley MD at 12:14 EDT ,
== END | disposition home or self-care (01) ==
LOC: US 13:21
PROVIDERS: PCP Internal Medicine; Referring Provider Internal Medicine; Visit Provider Internal Medicine
DX: M25.562 Pain in left knee (principal)
CPT/HCPCS: 76882

== ENCOUNTER 2024-01-21 08:22 | Outpatient (CLI) | payer MEDICARE, OTHER, SELFPAY ==
[2024-01-21 08:34] VITALS: BP 127/64; PULSE 55; RESP 16; TEMP 36; O2SAT 100; BMI 22.1
[2024-01-21] MEDS: Romosozumab-AQQG 210 MG/2.34 ML Syringe SC (08:37)
== END 2024-01-21 08:23 | disposition home or self-care (01) ==
LOC: MEDOUTP 08:22
PROVIDERS: PCP Internal Medicine; Referring Provider Internal Medicine Endocrinology, Diabetes & Metabolism; Visit Provider Internal Medicine Endocrinology, Diabetes & Metabolism
DX: M81.0 Age-related osteoporosis without current pathological fracture (principal)
CPT/HCPCS: 96372; J3111

== ENCOUNTER 2024-02-18 09:00 | Outpatient (CLI) | payer MEDICARE, OTHER, SELFPAY ==
[2024-02-18 09:12] VITALS: BP 136/69; PULSE 65; RESP 16; TEMP 36.6; O2SAT 98
[2024-02-18] MEDS: Romosozumab-AQQG 210 MG/2.34 ML Syringe SC (09:15)
== END 2024-02-18 23:59 | disposition home or self-care (01) ==
LOC: MEDOUTP 09:00
PROVIDERS: PCP Internal Medicine; Referring Provider Internal Medicine Endocrinology, Diabetes & Metabolism; Visit Provider Internal Medicine Endocrinology, Diabetes & Metabolism
DX: M81.0 Age-related osteoporosis without current pathological fracture (principal)
CPT/HCPCS: 96372; J3111

== ENCOUNTER 2024-03-17 08:49 | Outpatient (CLI) | payer MEDICARE, OTHER, SELFPAY ==
[2024-03-17 08:57] VITALS: BP 143/70; PULSE 82; RESP 16; TEMP 36.7; O2SAT 100; BMI 22.4
[2024-03-17] MEDS: Romosozumab-AQQG 210 MG/2.34 ML Syringe SC (09:10)
== END 2024-03-17 23:59 | disposition home or self-care (01) ==
LOC: MEDOUTP 08:49
PROVIDERS: PCP Internal Medicine; Referring Provider Internal Medicine Endocrinology, Diabetes & Metabolism; Visit Provider Internal Medicine Endocrinology, Diabetes & Metabolism
DX: M81.0 Age-related osteoporosis without current pathological fracture (principal)
CPT/HCPCS: 96372; J3111

== ENCOUNTER 2024-04-14 08:44 | Outpatient (CLI) | payer MEDICARE, OTHER, SELFPAY ==
[2024-04-14 08:51] VITALS: BP 122/59; PULSE 57; RESP 16; TEMP 37; O2SAT 97; BMI 21.6
[2024-04-14] MEDS: Romosozumab-AQQG 210 MG/2.34 ML Syringe SC (09:06)
== END 2024-04-14 23:59 | disposition home or self-care (01) ==
LOC: MEDOUTP 08:44
PROVIDERS: PCP Internal Medicine; Referring Provider Internal Medicine Endocrinology, Diabetes & Metabolism; Visit Provider Internal Medicine Endocrinology, Diabetes & Metabolism
DX: M81.0 Age-related osteoporosis without current pathological fracture (principal)
CPT/HCPCS: 96372; J3111

== ENCOUNTER 2024-05-19 08:55 | Outpatient (CLI) | payer MEDICARE, OTHER, SELFPAY ==
[2024-05-19 09:12] VITALS: BP 128/82; PULSE 67; RESP 14; TEMP 36.6; O2SAT 98; BMI 21.6
[2024-05-19] MEDS: Romosozumab-AQQG 210 MG/2.34 ML Syringe SC (09:22)
== END 2024-05-19 23:59 | disposition home or self-care (01) ==
LOC: MEDOUTP 08:55
PROVIDERS: PCP Internal Medicine; Referring Provider Internal Medicine Endocrinology, Diabetes & Metabolism; Visit Provider Internal Medicine Endocrinology, Diabetes & Metabolism
DX: M81.0 Age-related osteoporosis without current pathological fracture (principal)
CPT/HCPCS: 96372; J3111

== ENCOUNTER → 2024-06-12 | Outpatient (CLI) | payer MEDICARE, OTHER, SELFPAY ==
--- NOTE | 2024-06-12 11:10 | RAD_ITS ---
STUDY: X-RAY - CERVICAL SPINE REASON FOR EXAM: Female, 73 years old. Chronic neck pain. TECHNIQUE: 3 view(s) of the cervical spine were obtained on 4 images. COMPARISON: None FINDINGS: Osteopenia. Normal anterior atlantoaxial articulation. Normal odontoid process. Normal cervical lordosis. 3 mm of anterolisthesis of C4 on C5. Diffuse moderate uncovertebral and facet sclerosis most marked from C2 to C5. Intervertebral disc space narrowing at C4-5 and to the greatest degree C5-6, C6-7 and C7-T1. Left carotid calcification. RAD/Cerv Spine 2 or 3 Views IMPRESSION: Osteopenia with moderate to marked mid to lower cervical spondylosis as described. Left carotid calcification. Electronically Signed: Marvin Beebe MD at 12:16 EDT ,
[2024-06-12 12:12] LABS: Absolute Lymphocyte Count 1.48 X10^3/uL (0.83-4.51); Absolute Neutrophil Count 4.4 X10^3/uL (2.0-7.7); Basophil% 1.4 % (0-1); Eosinophil# 0.26 X10^3/uL; Eosinophils% 3.7 % (0-5); Hematocrit 40.4 % (37-47); Lymphocyte # 1.48 X10^3/ul (0.83-4.51); Lymphocyte % 21.3 % (19-41); Mean Corp Hgb Conc 32.2 g/dL (32-36); Mean Corpuscular Hgb 30.1 pg (27.0-32.0); Mean Corpuscular Volume 93.5 fL (81-99); Mean Platelet Vol. 10.7 fl (6.2-12.0); Monocyte# 0.62 X10^3/uL; Monocyte% 8.9 % (0-10); NRBC Flagged by Analyzer 0 % (0-5); Neutrophil # 4.44 X10^3/uL (2.7-7.7); Neutrophil % 64.1 % (47-70); Platelet Count 233 K/mm3 (150-450); RBC Distribution Width CV 14.1 % (11.6-14.6); RBC Distribution Width SD 48.8 fl (35.1-43.9); Red Blood Count 4.32 M/mm3 (4.2-5.4); White Blood Count 6.9 K/mm3 (4.4-11.0)
[2024-06-12 12:54] LABS: Vitamin B12 999 pg/mL (211-911)
[2024-06-12 13:14] LABS: Anion Gap 5 (5-15); BUN 17 mg/dL (7-18); BUN/Creat Ratio 23.4 RATIO (10-20); Calcium,Total 9.3 mg/dL (8.5-10.1); Chloride 106 mmol/L (98-107); Creatinine, Serum 0.73 mg/dL (0.55-1.02); EST Glomerular Filtration Rate 83 mL/min (>60); Est Glom Filt Rate - Afr Amer 101 mL/min (>60); Glucose 95 mg/dL (74-106); Potassium 4.5 mmol/L (3.5-5.1); Sodium Level 140 mmol/L (136-145); T4 Free Direct 0.88 ng/dL (0.76-1.46)
== END | disposition home or self-care (01) ==
PROVIDERS: PCP Internal Medicine; Referring Provider Internal Medicine; Visit Provider Internal Medicine
DX: M54.2 Cervicalgia (principal); G89.29 Other chronic pain; F32.4 Major depressive disorder, single episode, in partial remission; F41.9 Anxiety disorder, unspecified; K21.9 Gastro-esophageal reflux disease without esophagitis; K86.81 Exocrine pancreatic insufficiency
CPT/HCPCS: 36415; 72040; 80048; 82607; 84439; 84443; 85025

== ENCOUNTER 2024-06-20 12:58 | Outpatient (CLI) | payer MEDICARE, OTHER, SELFPAY ==
[2024-06-20 13:22] VITALS: BP 133/81; PULSE 62; RESP 16; TEMP 36.2; O2SAT 95
[2024-06-20] MEDS: Romosozumab-AQQG 210 MG/2.34 ML Syringe SC (13:26)
== END 2024-06-20 23:59 | disposition home or self-care (01) ==
LOC: MEDOUTP 12:58
PROVIDERS: PCP Internal Medicine; Referring Provider Internal Medicine Endocrinology, Diabetes & Metabolism; Visit Provider Internal Medicine Endocrinology, Diabetes & Metabolism
DX: M81.0 Age-related osteoporosis without current pathological fracture (principal)
CPT/HCPCS: 96372; J3111

== ENCOUNTER → 2024-07-06 | Outpatient (CLI) | payer MEDICARE, OTHER, SELFPAY ==
--- NOTE | 2024-07-06 10:03 | CDU_ITS ---
Reason For Study: LT Carotid Stenosis Rt. Velocities/BP Lt. Velocities/BP Prox CCA 76.5/13.8 cm/sec. Prox CCA 106.3/22.8 cm/sec. Mid CCA 89.7/22.6 cm/sec. Mid CCA 77.6/22.6 cm/sec. Dist CCA 76.5/23.7 cm/sec. Dist CCA 70.5/19.5 cm/sec. Prox ICA 83.4/19.7 cm/sec. Prox ICA 52.7/14.6 cm/sec. Mid ICA 52.9/17.1 cm/sec. Mid ICA 53.1/17.4 cm/sec. Dist ICA 78.9/31.1 cm/sec. Dist ICA 55.0/21.0 cm/sec. Rt. ICA/CCA = 0.9. Lt. ICA/CCA = 0.7. Prox ECA 76.1/16.6 cm/sec. Prox ECA 58.5/14.1 cm/sec. Rt. Vert. 44.1/12.7 cm/sec. Lt. Vert. 44.6/11.1 cm/sec. Right Extracranial There is intimal thickening but no significant atherosclerotic plaque noted in the right common carotid artery. There is intimal thickening but no significant atherosclerotic plaque noted in the right internal carotid artery. There is intimal thickening but no significant atherosclerotic plaque noted in the right external carotid artery. Antegrade flow is noted in the right vertebral artery. Left Extracranial There is intimal thickening but no significant atherosclerotic plaque noted in the left common carotid artery. There is heterogeneous, irregular atherosclerotic plaque noted in the left internal carotid artery. There is intimal thickening but no significant atherosclerotic plaque noted in the left external carotid artery. Antegrade flow is noted in the left vertebral artery. Procedure Carotid Duplex [id number]. This is a Carotid Duplex examination using B-mode, color flow and specral Doppler. The exam was diagnostic. Exam performed in department. VL/Carotid Duplex Ultrasound Interpretation Summary Normal right extracranial internal carotid. Mild (<50%) stenosis left extracranial internal carotid. Patent and antegrade vertebrals bilaterally. Ordering Physician: Katalina Velazquez Referring Physician: Katalina Velazquez Performed By: Migue Zuniga RVT
== END | disposition home or self-care (01) ==
PROVIDERS: PCP Internal Medicine; Referring Provider Internal Medicine; Visit Provider Internal Medicine
DX: I65.22 Occlusion and stenosis of left carotid artery (principal)
CPT/HCPCS: 93880

== ENCOUNTER → 2024-08-14 | Outpatient (CLI) | payer MEDICARE, OTHER, SELFPAY ==
[2024-08-14 16:51] LABS: Cholesterol 216 mg/dL (200); High Density Lipoprotein 84 mg/dL; Triglycerides 59 mg/dL; Very Low Density Lipoprotein 12 mg/dL (5-40)
== END | disposition home or self-care (01) ==
LOC: BIMLAB 14:28
PROVIDERS: PCP Internal Medicine; Visit Provider Internal Medicine
DX: Z13.6 Encounter for screening for cardiovascular disorders (principal); E55.9 Vitamin D deficiency, unspecified
CPT/HCPCS: 80061; 82306

== ENCOUNTER → 2024-08-14 | Outpatient (CLI) | payer MEDICARE, OTHER, SELFPAY ==
--- NOTE | 2024-08-14 09:11 | MRI_ITS ---
EXAM: MR CERVICAL SPINE WITHOUT INTRAVENOUS CONTRAST CLINICAL INDICATION: NECK pain TECHNIQUE: Multiplanar and multisequence MR images of the cervical spine without intravenous contrast were performed. COMPARISON: Cervical spine radiographs, 07/13/2024 FINDINGS: VERTEBRAE: Trace degenerative anterolisthesis of C4 upon C5 and relative retrolisthesis of C6 upon C7. Secondary to facet arthrosis. Aside from degenerative changes, normal craniocervical junction and cervicothoracic junction. There is preservation of the normal cervical lordosis. SPINAL CORD: No spinal cord signal abnormality or critical mass effect upon the spinal cord. SOFT TISSUES: No significant abnormality. No prevertebral soft tissue swelling. LYMPH NODES: No significant abnormality. There is no cervical adenopathy. DISCS/SPINAL CANAL/NEURAL FORAMINA: C2-C3: Mild bilateral facet arthrosis. No disc herniation, spinal canal stenosis, or neural foraminal narrowing. C3-C4: Disc height loss and disc desiccation. Facet and uncovertebral joint arthrosis and very mild disc bulge. Mild spinal canal and bilateral neural foraminal narrowing. C4-C5: Disc height loss and desiccation. Facet and uncovertebral joint arthrosis and a disc bulge. Mild spinal canal and bilateral neural foraminal narrowing. C5-C6: Disc height loss and disc desiccation. Central disc herniation and moderate facet and uncovertebral joint arthrosis. Moderate bilateral neural foraminal narrowing and mild to moderate spinal canal stenosis exacerbated by ligamentum flavum thickening and/or redundancy. C6-C7: Central disc herniation and moderate facet and uncovertebral joint arthrosis. Moderate right greater than left neural foraminal narrowing and mild to moderate spinal canal stenosis exacerbated by ligamentum flavum thickening and/or redundancy. C7-T1: Mild bilateral facet arthrosis. No disc herniation, spinal canal stenosis, or neural foraminal narrowing. MRI/Spine Cervical (Routine) IMPRESSION: 1. No spinal cord signal abnormality or critical mass effect upon the spinal cord. 2. Trace degenerative anterolisthesis of C4 upon C5 and relative retrolisthesis of C6 upon C7. Secondary to facet arthrosis. Additional degenerative changes as detailed above. Electronically Signed: Nirav Howell DO at 23:52 EST ,
== END | disposition home or self-care (01) ==
LOC: MRI 09:02
PROVIDERS: PCP Internal Medicine; Referring Provider Orthopaedic Surgery Orthopaedic Surgery of the Spine; Visit Provider Orthopaedic Surgery Orthopaedic Surgery of the Spine
DX: G95.9 Disease of spinal cord, unspecified (principal)
CPT/HCPCS: 72141

== ENCOUNTER → 2024-09-14 | Outpatient (CLI) | payer SELFPAY ==
--- NOTE | 2024-09-14 14:49 | CT_ITS ---
STUDY: CT CHEST T ABDOMEN WITHOUT CONTRAST REASON FOR EXAM: Female, 74 years old. ATHEROSCLEROSIS OF AORTA RADIATION DOSAGE (If Supplied By Facility): CTDIvol = ( 12.19 ) mGy, DLP = ( 219.42 ) mGycm TECHNIQUE: Transaxial imaging was performed without the administration of intravenous contrast material. Cardiac over read examination. Individualized dose optimization techniques were used for this CT. COMPARISON: No relevant priors. FINDINGS: CHEST Findings suggest mild scarring at the lung bases. There is no demonstrated pleural abnormality. There are calcifications of the coronary arteries. Normal mediastinum. Normal hilar regions. Normal unenhanced pulmonary arteries. Normal aorta arch and descending thoracic aorta. There are degenerative changes of the thoracic spine. There is no demonstrated abnormality of the visualized upper abdomen. CT/Limited Chest CT Cardiac Only IMPRESSION: Coronary artery calcification. Electronically Signed: Kei Falcon MD at 10:34 EST ,
--- NOTE | 2024-09-14 16:46 | CA.SCORE ---
Calcium Scoring Date of Study:: 09/14/24 Indications Indications: FH Coronary Calcium Scoring: High-resolution Computed Tomographic imaging of the chest was performed on [09/14/24 ], with particular attention paid to the coronary arteries. Images from the examination were analyzed for the presence and extent of coronary artery calcification , using coronary calcium quantification software. The patient tolerated the procedure well and there were no complications. The results of the coronary calcification analysis are provided below. Findings Coronary Artery Left Main (LM): 54 Left Anterior Descending (LAD): 121 Left Circumflex (LCX): 0 Right Coronary Artery (RCA): 69 Total Agatston Score: 244 Percentile Rankin-90% Calcium Scoring Interpretation: Different methods to categorize the overall amount of coronary plaque. Overall amount CAC SIS Visual of coronary plaque P1 Mild -100 <2 1-2 vessels with mild amount of plaque P2 Moderate 101-300 3-4 1-2 vessels with moderate amount, 3 vessels with mild amount of plaque P3 Severe 301-999 5-7 3 vessels with moderate amount, 1 vessel with severe amount of plaque P4 Extensive >1000 >8 2-3 vessels with severe amount of plaque Calcium Score: Moderate: 1-2 vessels w/moderate amt, 3 vessels w/mild amt of plaque Conclusion: Mild to moderate plaque noted.
== END | disposition home or self-care (01) ==
PROVIDERS: PCP Internal Medicine; Referring Provider Internal Medicine; Visit Provider Internal Medicine
DX: I70.0 Atherosclerosis of aorta (principal); Z91.89 Other specified personal risk factors, not elsewhere classified; Z13.6 Encounter for screening for cardiovascular disorders; I25.83 Coronary atherosclerosis due to lipid rich plaque; I25.10 Atherosclerotic heart disease of native coronary artery without angina pectoris
CPT/HCPCS: 75571; 76380

== ENCOUNTER → 2024-11-15 | Outpatient (CLI) | payer MEDICARE, OTHER, SELFPAY ==
--- NOTE | 2024-11-15 10:21 | BD_ITS ---
PROCEDURE: DEXA BONE DENSITY STUDY REASON FOR EXAM: F, age 74 y/o . Postmenopausal. TECHNIQUE: DEXA scan of the lumbar spine and both hips. COMPARISON: Comparison is made with prior study dated November 05, 2022. FINDINGS: Lumbar Spine (L1-L4): g/cm2 (0.808)/T-score (-1.9)/Z-score (0 points) findings are suggestive of osteopenia with a moderate fracture risk. Left Femur Total: g/cm2 (0.727)/T-score (-1.8)/Z-score (0.0) Left Femoral Neck: g/cm2 (0.632)/T-score (-2.0)/Z-score (0.1) Right Femur Total: g/cm2 (0.708)/T-score (-1.9)/Z-score (-0.2) Right Femoral Neck: g/cm2 (0.614)/T-score (-2.1)/Z-score (-0.1) The T-Scores on the most recent prior examination were: Lumbar Spine (L1-L4): There has been improvement of bone density since the previous examination. Left Femur Total: Improvement of 8.5%. Right Femur Total: Improvement of 6.6%. BD/Dexa Bone Density Study IMPRESSION: The patient is considered osteopenic as outlined below according to World San[employer] Organization (WHO) criteria with a moderate fracture risk. There has been improvement of bone density since the previous e xamination. Reading Location: [facility]
== END | disposition home or self-care (01) ==
LOC: OPBD 10:17
PROVIDERS: PCP Internal Medicine; Referring Provider Internal Medicine Endocrinology, Diabetes & Metabolism; Visit Provider Internal Medicine Endocrinology, Diabetes & Metabolism
DX: M81.0 Age-related osteoporosis without current pathological fracture (principal)
CPT/HCPCS: 77080

== ENCOUNTER → 2024-11-27 | Outpatient (CLI) | payer MEDICARE, OTHER, SELFPAY ==
--- NOTE | 2024-11-27 11:50 | US_ITS ---
PROCEDURE: HEAD/NECK SOFT TISSUE REASON FOR EXAM: ANTERIOR NECK SWELLING COMPARISON: None. TECHNIQUE: Targeted grayscale and color Doppler ultrasound of the region of clinical concern/palpable abnormality along the mid anterior midline neck was performed. FINDINGS: Palpable abnormality appears to correspond to a prominent vessel. No other focal sonographic abnormality in the area of clinical concern. Incidental note is made of small thyroid nodules, largest visualized nodule in the left measures 5 mm and is hypoechoic. These do not appear to correspond to the area of clinical concern/palpable abnormality. US/Head/Neck Soft Tissue IMPRESSION: 1. Palpable abnormality/region of clinical concern appears to correspond to a p rominent vessel. 2. Incidental note of small thyroid nodules, incompletely evaluated. Consider dedicated thyroid ultrasound. Reading Location: [id number]
--- NOTE | 2024-11-27 11:50 | BI_ITS ---
EXAM: SCRN MAMM (CAD)W/JONN BILAT DATE: 11/27/2024 CLINICAL HISTORY: F, Age 74 y/o , BREAST CANCER SCREENING. History of prior left excisional breast biopsy. BREAST CANCER RISK ASSESSMENT: Not assessed. TECHNIQUE: Bilateral screening digital breast tomosynthesis with 2D and 3D images. Computer aided detection. COMPARISON: Prior exam(s) dating back to November 26, 2023.. FINDINGS: Bilateral Breast Mammographic Findings: No significant masses, calcifications or other abnormalities are identified. TISSUE DENSITY: The breast tissue is extremely dense which lowers the sensitivity of mammography. Stable small benign-appearing bilateral axillary lymph nodes. BI/SCRN MAMM (CAD)W/JONN BILAT IMPRESSION: Normal interval followup mammograms are recommended in 12 months. A letter with findings and recommendations will be mailed to the patient. ASSESSMENT: BIRADS 2 BENIGN FINDING RECOMMENDATION: 1: ROUTINE ANNUAL FOLLOW-UP Bilateral in 1 Year Reading Location: [place] [address]
== END | disposition home or self-care (01) ==
LOC: OPBI 11:48
PROVIDERS: PCP Internal Medicine; Referring Provider Internal Medicine; Visit Provider Internal Medicine
DX: Z12.31 Encounter for screening mammogram for malignant neoplasm of breast (principal)
CPT/HCPCS: 76536; 77063; 77067

== ENCOUNTER → 2024-12-08 | Outpatient (CLI) | payer MEDICARE, OTHER, SELFPAY ==
[2024-12-08 11:22] LABS: ALB/GLOB Ratio 1.9 RATIO (0.9-2.4); AST(SGOT) 21 U/L (<=31); Alanine Aminotransfer ALT/SGPT 24 U/L (<=34); Albumin, Serum 4.3 g/dL (3.4-4.8); Alkaline Phosphatase 85 U/L (35-104); Anion Gap 12 (5-15); BUN 17 mg/dL (4-19); BUN/Creat Ratio 22.9 RATIO (10-20); Calcium,Total 9.3 mg/dL (7.6-11.0); Carbon Dioxide 23.4 mmol/L (21.0-32.0); Chloride 105 mmol/L (98-108); Creatinine, Serum 0.76 mg/dL (0.70-1.20); EST Glomerular Filtration Rate 82 (>60); Globulin 2.3 g/dL (2.2-4.2); Glucose 114 mg/dL (70-99); Potassium 4.2 mmol/L (3.3-5.1); Protein, Total 6.5 g/dL (5.9-8.4); Sodium Level 140 mmol/L (133-145); Total Bilirubin 0.33 mg/dL (0.00-1.30)
== END | disposition home or self-care (01) ==
LOC: LAB 09:13
PROVIDERS: PCP Internal Medicine; Referring Provider Physician Assistant; Visit Provider Physician Assistant
DX: E04.1 Nontoxic single thyroid nodule (principal)
CPT/HCPCS: 36415; 80053; 84443

== ENCOUNTER → 2024-12-18 | Outpatient (CLI) | payer MEDICARE, OTHER, SELFPAY ==
--- NOTE | 2024-12-18 12:19 | US_ITS ---
PROCEDURE: THYROID (USTHY), 12/18/2024 REASON FOR EXAM: THYROID NODULE TECHNIQUE: Grayscale and color Doppler imaging of the thyroid was performed. COMPARISON: No prior dedicated thyroid ultrasound. FINDINGS: Right lobe measures 3.5 x 1.3 x 1.4cm. Essentially homogeneous background echotexture. No abnormal vascularity. Nodules as below: *5 x 4 x 4 mm, mixed cystic and solid, hypoechoic solid components, TI-RADS 3. *7 x 6 x 4 mm, solid, essentially isoechoic, TI-RADS 3. Left lobe measures 3.5 x 1.3 x 1.1 cm. Essentially homogeneous background echotexture. No abnormal vascularity. Nodules as below: *5 x 5 x 3 mm, solid, hypoechoic, TI-RADS 4. Isthmus measures 3 mm in thickness. US/Thyroid IMPRESSION: 1. Assessment is TI-RADS 4. No nodules currently meet criteria for FNA or follo w-up. 2. Atrophic but essentially homogeneous gland without abnormal vascularity. Management recommendations for TI-RADS 4 findings: FNA if = 1.5 cm; Follow if = 1 cm at 1, 2, 3, and 5 years. Recommendations per ACR Thyroid Imaging, Reporting and Data System (TI-RADS): Muriel luna Paper of the ACR TI-RADS Committee, 2017 ([email or web address]/[email or web address]) Reading Location: [id number]
== END | disposition home or self-care (01) ==
LOC: US 12:17
PROVIDERS: PCP Internal Medicine; Referring Provider Physician Assistant; Visit Provider Physician Assistant
DX: E04.1 Nontoxic single thyroid nodule (principal)
CPT/HCPCS: 76536

== ENCOUNTER → 2024-12-28 | Outpatient (CLI) | payer MEDICARE, OTHER, SELFPAY ==
--- NOTE | 2024-12-28 07:46 | CT_ITS ---
PROCEDURE: CTA NECK W/WO CONTRAST 12/28/2024 REASON FOR EXAM: NECK MASS, difficulty swallowing, excessive coughing, slight carotid stenosis TECHNIQUE: CTA NECK WITH IV CONTRAST: Coronal and Sagittal reconstruction series were provided. 3D, 3D post processing, 3D reconstructions, Maximum intensity projection (MIPs) Volume rendering and Shaded surface rendering was provided. CONTRAST: Isovue 370 VOLUME: 100 mL IV One or more dose reduction techniques were used (e.g., Automated exposure control, adjustment of the mA and/or kV according to patient size, use of iterative reconstruction technique). RADIATION DOSE SUMMARY: DLP: 354.4 mGycm COMPARISON: None FINDINGS: No neck masses identified. No mass effect on the partially visualized aerodigestive tract. AORTIC ARCH: Branch vessels are widely patent. Left vertebral artery origin from the aortic arch. EXTRACRANIAL CAROTIDS: Widely patent. No significant RIGHT ICA stenosis Small calcifications without significant LEFT ICA stenosis NONVASCULAR:Bilateral ocular lens extractions. The parotid and submandibular glands appear within normal limits. No cervical lymphadenopathy. The thyroid appears within normal limits. CT/CTA Neck W/WO Contrast IMPRESSION: No neck mass identified. No carotid or vertebral stenosis or dissection. Reading [facility]
== END | disposition home or self-care (01) ==
LOC: CT 07:45
PROVIDERS: PCP Internal Medicine; Referring Provider Physician Assistant; Visit Provider Physician Assistant
DX: R22.1 Localized swelling, mass and lump, neck (principal)
CPT/HCPCS: 70498; Q9967

== ENCOUNTER 2025-01-04 10:07 | Inpatient (IN) | payer MEDICARE, OTHER, SELFPAY ==
[2025-01-04] VITALS (8 sets, daily range): BP systolic 94–100; BP diastolic 53–66; PULSE 64–79; RESP 13–20; TEMP 36.6–36.8; O2SAT 94–100; BMI 24.7
[2025-01-04] MEDS: 0.9% Normal Saline (1000mL) 1,000 ML 999 ML IV ×2 (10:46→14:06)
[2025-01-04] MEDS: Ketorolac 15 MG/ML Vial IV (10:47)
[2025-01-04] MEDS: Ondansetron 4 MG/2 ML Vial IV (10:47)
[2025-01-04 10:54] LABS: Absolute Lymphocyte Count 0.21 X10^3/uL (0.83-4.51); Absolute Neutrophil Count 2.5 X10^3/uL (2.0-7.7); Basophil# 0.02 X10^3/uL; Basophil% 0.6 % (0-1); Hemoglobin 15.1 g/dL (12.0-15.0); Lymphocyte # 0.21 X10^3/ul (0.83-4.51); Lymphocyte % 6.7 % (19-41); Mean Corp Hgb Conc 33.6 g/dL (32-36); Mean Corpuscular Hgb 30.5 pg (27.0-32.0); Mean Corpuscular Volume 90.9 fL (81-99); Monocyte# 0.35 X10^3/uL; Monocyte% 11.1 % (0-10); NRBC Flagged by Analyzer 0 % (0-5); Neutrophil # 2.54 X10^3/uL (2.7-7.7); Neutrophil % 80.6 % (47-70); POSITIVE DIFFERENTIAL YES; POSITIVE MORPHOLOGY YES; Platelet Count 184 K/mm3 (150-450); RBC Distribution Width CV 13.7 % (11.6-14.6); Red Blood Count 4.95 M/mm3 (4.2-5.4); White Blood Count 3.2 K/mm3 (4.4-11.0)
[2025-01-04 11:01] LABS: Differential Indicated SCAN CRITERIA MET
--- NOTE | 2025-01-04 11:06 | EDS_ITS ---
HPI History of Present Illness Chief Complaint: General Illness Informant: patient Narrative Narrative: Patient 74-year-old female with history of degenerative disc disease, cervical myelopathy, headaches, fibromyalgia, chronic hip pain, exocrine pancreatic insufficiency and prior C. difficile presenting with with diarrhea, generalized weakness, numbness and tingling of her hands and around her face as well as increased neck pain and headache. Patient states she had diarrhea all day yesterday. She states her legs are so weak she felt she could not walk. She has associated nausea but no vomiting. Overnight she notes that her back pain which had been worsening seem to be okay but she continued have diarrhea. She developed bilateral neck pain that she describes as electrical pulsing sensation that is rapidfire. She notes it is now moved into more of a frontal headache but she continues to have neck pain. She developed numbness and tingling and heaviness of her arms and the numbness and tingling around her mouth and her chin today. She came in for further evaluation. States that when she has to have a bowel movement she has to go very quickly and has had some stool incontinence because of this. Denies any black or blood in her stool. No she did have a heavy meal on Wednesday (4 days ago) for Easter but had been doing fine until yesterday. States this does not feel like when she had C. difficile. Does note that she took her blood pressure at home and it was low. She denies any recent medication changes. Does follow with Dr. Coyle, for pain management, Dr. Smith for spine and Dr. Spencer for GI. [facility] Medical History At high risk for cardiovascular disease Localized swelling, mass and lump, neck Blister of gingiva with infection Submandibular lymphadenopathy Screening for cardiovascular condition Degenerative cervical disc Flu vaccine need Ulnar neuropathy of right upper extremity Chronic neck pain Allergic rhinosinusitis Allergic conjunctivitis Acute conjunctivitis, unspecified Varicose veins of bilateral lower extremities with pain Chronic back pain Anxiety and depression Hx of headache H/O emotional problems Hx of cataract History of back problems Allergies Urinary tract infection with hematuria Positive P-ANCA titer Osteoarthritis Breast lump Arthritis Left knee pain Hypokalemia Hypocalcemia De Quervain's tenosynovitis Anxiety Acute kidney injury TMJ arthralgia Right knee pain Mass of urinary bladder EIC (epidermal inclusion cyst) Depressive disorder Coronary artery calcification Calcification of abdominal aorta Atypical chest pain Epigastric pain Umbilical hernia Retroperitoneal lymphadenopathy Panic disorder Normocytic anemia Lumbar back pain IBS (irritable bowel syndrome) Hydronephrosis Elevated liver enzymes Diverticulitis Osteoporosis Fibromyalgia Home Medications ?Medication ?Instructions ?Recorded ?Last Taken ?Type calcium carbonate 1,200 mg PO DAILY 07/07/19 0 01/04/25 History Lactobacillus acidophilus and 1 ea PO DAILY 09/09/19 0 01/04/25 History rhamnosus 15 billion cell capsule vitamins A,C,A-cazp-wdcndo 4,296 1 cap PO BID 12/19/21 01/04/25 History mcg-226 mg-90 mg capsule (PreserVision AREDS) dicyclomine 20 mg tablet 20 mg PO BID PRN abdominal p ain 7 07/25/23 Unknown Rx days #14 tabs cholecalciferol (vitamin D3) 25 25 mcg PO DAILY 01/04/25 History mcg (1,000 unit) capsule vitamin E 200 unit capsule 400 unit PO DAILY 07/30/23 01/04/25 History comp.stocking,thigh,long,small #2 ea 12/16/23 Unknown Rx hydroxyzine HCl 25 mg tablet 25 mg PO BID PRN anxiety #60 tabs 06/12/24 Unknown Rx gabapentin 100 mg capsule 100 mg PO TID PRN NERVE PAIN 07/13/24 Unknown History denosumab 60 mg/mL subcutaneous 60 mg subcut [id number] #1 mL 07/28/24 08/14/24 Rx syringe bupropion HCl 150 mg 24 hr tablet, 150 mg PO DAILY #90 tabs 10/04/24 01/04/25 Rx extended release [id number] 1 cap PO TID #320 caps 10/2501/04/25 Rx 36,000-114,000-180,000 unit capsule,delay rel (Creon) cholestyramine (with sugar) 4 gram 4 g PO QHS PRN diar bro 01/04/25 Unknown History powder for susp in a packet cyclosporine 0.05 % eye drops in a 1 drp ophthalmic (e ye) Q12H 01/04/25 01/04/25 History dropperette (Restasis) duloxetine 30 mg capsule,delayed 30 mg PO DAILY 01/04/25 History release duloxetine 30 mg capsule,delayed 30 mg PO QHS 01/04/25 01/03/25 History release (Cymbalta) Allergy/AdvReac Type Severity Reaction Status Date / Time codeine Allergy Rash Verified 01/04/25 10:09 ibandronate sodium (From AdvReac EXTREME Verified 01/04/25 10:09 Boniva) GERD plasic tape Allergy Mild Rash Uncoded 12/08/24 08:46 Family History Father Arthritis Grandmother Diabetes Grandfather Myocardial infarction Mother Myocardial infarction CVA (cerebral vascular accident) Other Fibromyalgia IBS (irritable bowel syndrome) Surgical History History of cholecystectomy H/O: hysterectomy Hx of colonoscopy Cataract extraction status History of repair of hiatal hernia Social History Smoking Status: Former smoker alcohol intake: never substance use type: does not use what type of physical activity do you participate in: none EXAM Physical Exam Const Vital Signs: 01/04/25 10:08 01/04/25 10:09 01/04/25 10:12 Temperature 98.2 F 98 F Temperature Source Temporal Temporal Pulse Rate 79 64 Respiratory Rate 20 H 13 Respiratory Pattern Tachypnea Blood Pressure 100/58 L 100/53 L Blood Pressure Mean 72 68 Pulse Ox 100 100 Oxygen Delivery Method Room Air MDM MDM Lab Data Labs: Laboratory Results - last 24 hr 01/04/25 10:35 WBC 3.2 L RBC 4.95 Hgb 15.1 H Hct 45.0 MCV 90.9 MCH 30.5 MCHC 33.6 RDW Std Deviation 46.0 H RDW Coeff of Nellie 13.7 Plt Count 184 MPV 11.0 Immature Gran % (Auto) 1.000 H Neut % (Auto) 80.6 H Lymph % (Auto) 6.7 L Coos % (Auto) 11.1 H Eos % (Auto) 0.0 Baso % (Auto) 0.6 Absolute Neuts (auto) 2.5 Absolute Lymphs (auto) 0.21 L Nucleated RBC % 0 Discharge Plan Triage Chief Complaint: General Illness ED Provider: Radha Elias Dx/Rx/DC Orders Prescriptions: No Action PreserVision AREDS [id number],[id number] pept-oz-pgla capsule 1 cap PO BID vitamin E 200 unit capsule 400 unit PO DAILY cholecalciferol (vitamin D3) 25 mcg (1,000 unit) capsule 25 mcg PO DAILY denosumab 60 mg/mL syringe 60 mg subcut [id number] Qty: 1 1RF (DME) comp.stocking,thigh,long,small Misc See Rx Instructions .Route Qty: 2 2RF Rx Instructions: 20 - 30 mmHg hydroxyzine HCl 25 mg tablet 25 mg PO BID PRN (Reason: anxiety) Qty: 60 1RF gabapentin 100 mg capsule 100 mg PO TID PRN (Reason: NERVE PAIN) calcium carbonate 600 MG tablet 1,200 mg PO DAILY L. acidophilus-L. rhamnosus 1 EACH capsule 1 ea PO DAILY dicyclomine 20 mg tablet 20 mg PO BID PRN (Reason: abdominal pain) 7 Days Qty: 14 0RF duloxetine [Cymbalta] 30 mg capsule,delayed release(DR/EC) 30 mg PO QHS Rx Instructions: TAKE 1 CAP IN AM, 2 CAPS QHS cyclosporine [Restasis] 0.05 % dropperette 1 drp ophthalmic (eye) Q12H cholestyramine (with sugar) 4 gram powder in packet 4 g PO QHS PRN (Reason: diarrhea) duloxetine 30 mg capsule,delayed release(DR/EC) 30 mg PO DAILY Rx Instructions: TAKE 1 CAP IN AM, 2 CAPS QHS bupropion HCl 150 mg tablet extended release 24 hr 150 mg PO DAILY Qty: 90 1RF Creon 36,000-114,000- 180,000 unit capsule,delayed release(DR/EC) 1 cap PO TID Qty: 320 11RF Rx Instructions: administer with meals and/or snacks Primary Care Provider: Katalina Velazquez Referrals: Katalina Velazquez MD [Primary Care Provider] - Print Language: Latvian
--- NOTE | 2025-01-04 11:06 | EX.ED.DYSGE1 ---
HPI History of Present Illness Chief Complaint: General Illness Informant: patient Narrative Narrative: Patient 74-year-old female with history of degenerative disc disease, cervical myelopathy, headaches, fibromyalgia, chronic hip pain, exocrine pancreatic insufficiency and prior C. difficile presenting with with diarrhea, generalized weakness, numbness and tingling of her hands and around her face as well as increased neck pain and headache. Patient states she had diarrhea all day yesterday. She states her legs are so weak she felt she could not walk. She has associated nausea but no vomiting. Overnight she notes that her back pain which had been worsening seem to be okay but she continued have diarrhea. She developed bilateral neck pain that she describes as electrical pulsing sensation that is rapidfire. She notes it is now moved into more of a frontal headache but she continues to have neck pain. She developed numbness and tingling and heaviness of her arms and the numbness and tingling around her mouth and her chin today. She came in for further evaluation. States that when she has to have a bowel movement she has to go very quickly and has had some stool incontinence because of this. Denies any black or blood in her stool. No she did have a heavy meal on Wednesday (4 days ago) for Easter but had been doing fine until yesterday. States this does not feel like when she had C. difficile. Does note that she took her blood pressure at home and it was low. She denies any recent medication changes. Does follow with Dr. Coyle, for pain management, Dr. Smith for spine and Dr. Spencer for GI. [facility] Medical History Degenerative disc disease Fibromyoma Depression Former smoker Coronary artery disease At high risk for cardiovascular disease Localized swelling, mass and lump, neck Blister of gingiva with infection Submandibular lymphadenopathy Screening for cardiovascular condition Degenerative cervical disc Flu vaccine need Ulnar neuropathy of right upper extremity Chronic neck pain Allergic rhinosinusitis Allergic conjunctivitis Acute conjunctivitis, unspecified Varicose veins of bilateral lower extremities with pain Chronic back pain Anxiety and depression Hx of headache H/O emotional problems Hx of cataract History of back problems Allergies Urinary tract infection with hematuria Positive P-ANCA titer Osteoarthritis Breast lump Arthritis Left knee pain Hypokalemia Hypocalcemia De Quervain's tenosynovitis Anxiety Acute kidney injury TMJ arthralgia Right knee pain Mass of urinary bladder EIC (epidermal inclusion cyst) Depressive disorder Coronary artery calcification Calcification of abdominal aorta Atypical chest pain Epigastric pain Umbilical hernia Retroperitoneal lymphadenopathy Panic disorder Normocytic anemia Lumbar back pain IBS (irritable bowel syndrome) Hydronephrosis Elevated liver enzymes Diverticulitis Osteoporosis Fibromyalgia Home Medications ?Medication ?Instructions ?Recorded ?Last Taken ?Type calcium carbonate 1,200 mg PO DAILY 07/07/19 01/04/25 History Lactobacillus acidophilus and 1 ea PO DAILY 09/09/19 01/04/25 History rhamnosus 15 billion cell capsule vitamins A,C,J-bqmt-guwfuj 4,296 1 cap PO BID 12/19/21 01/04/25 History mcg-226 mg-90 mg capsule (PreserVision AREDS) dicyclomine 20 mg tablet 20 mg PO BID PRN abdominal pain 7 07/25/23 Unknown Rx days #14 tabs cholecalciferol (vitamin D3) 25 25 mcg PO DAILY 07/30/23 01/04/25 History mcg (1,000 unit) capsule comp.stocking,thigh,long,small #2 ea 12/16/23 Unknown Rx hydroxyzine HCl 25 mg tablet 25 mg PO BID PRN anxiety #60 tabs 06/12/24 Unknown Rx gabapentin 100 mg capsule 100 mg PO TID PRN NERVE PAIN 07/13/24 Unknown History denosumab 60 mg/mL subcutaneous 60 mg subcut [id number] #1 mL 07/28/24 08/14/24 Rx syringe bupropion HCl 150 mg 24 hr tablet, 150 mg PO DAILY #90 tabs 10/04/24 01/04/25 Rx extended release [id number]-[id number] 1 cap PO TID #320 caps 10/25/24 01/04/25 Rx 36,000-114,000-180,000 unit capsule,delay rel (Creon) cholestyramine (with sugar) 4 gram 4 g PO QHS PRN diarrhea 01/04/25 Unknown History powder for susp in a packet cyclosporine 0.05 % eye drops in a 1 drp ophthalmic (eye) Q12H 01/04/25 01/04/25 History dropperette (Restasis) duloxetine 30 mg capsule,delayed 30 mg PO DAILY 01/04/25 01/04/25 History release duloxetine 30 mg capsule,delayed 30 mg PO QHS 01/04/25 01/03/25 History release (Cymbalta) vitamin E 268 mg (400 unit) capsule 268 mg PO DAILY 01/04/25 01/04/25 History Allergy/AdvReac Type Severity Reaction Status Date / Time codeine Allergy Rash Verified 01/04/25 10:09 ibandronate sodium (From AdvReac EXTREME Verified 01/04/25 10:09 Boniva) GERD plasic tape Allergy Mild Rash Uncoded 12/08/24 08:46 Family History Father Arthritis Grandmother Diabetes Grandfather Myocardial infarction Mother Myocardial infarction CVA (cerebral vascular accident) Other Fibromyalgia IBS (irritable bowel syndrome) Surgical History History of cholecystectomy History of cholecystectomy H/O: hysterectomy Hx of colonoscopy Cataract extraction status History of repair of hiatal hernia Social History Smoking Status: Former smoker alcohol intake: never substance use type: does not use what type of physical activity do you participate in: none ROS ROS ED Constitutional Constitutional ED: Denies chills or fever(s) ENT ENT ED: Denies rhinorrhea or sore throat Cardiovascular Cardiovascular: Denies chest pain Respiratory/Chest Respiratory/Chest: Denies cough or dyspnea Gastrointestinal Gastrointestinal: Reports diarrhea and nausea; Denies abdominal pain or melena Musculoskeletal Musculoskeletal: Reports arthralgias, myalgias and neck pain Integumentary Denies rash Neurologic Neurologic: Reports headache(s) and weakness Psychiatric Psychiatric: Reports anxiety Hematologic/Lymphatic Hematologic/Lymphatic: Denies easy bleeding or easy bruising EXAM Physical Exam Const Vital Signs: 01/04/25 10:08 01/04/25 10:09 01/04/25 10:12 Temperature 98.2 F 98 F Temperature Source Temporal Temporal Pulse Rate 79 64 Respiratory Rate 20 H 13 Respiratory Pattern Tachypnea Blood Pressure 100/58 L 100/53 L Blood Pressure Mean 72 68 Pulse Ox 100 100 Oxygen Delivery Method Room Air 01/04/25 12:08 01/04/25 14:00 Temperature Temperature Source Pulse Rate 77 77 Respiratory Rate 18 18 Respiratory Pattern Blood Pressure 100/66 100/60 Blood Pressure Mean 77 73 Pulse Ox 96 97 Oxygen Delivery Method Positive well nourished and well developed General Appearance ED: well developed and NAD HEENT Reports dry mucous membranes Mouth ED: Yes dry mucous membranes Mouth: dry mucous membranes Eyes PERRL General Eye ED: Negative for scleral icterus Neck no lymphadenopathy and supple Neck Narrative: Normal range of motion of the neck. No midline tenderness. Patient points to the base of her cervical spine in the paraspinal region as the area of pain. Has spasm over the bilateral sternocleidomastoid (right worse than left) with associated tenderness. No crepitus appreciated. No pulsatile mass appreciated. 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 Normal strength of the upper and lower extremities. Mild difficulty with raising the left leg but attributes that to her bad hip. Sensorium / Orientation: alert Motor Exam: general weakness Psych mental status grossly normal Mood & Affect: anxious Skin no rashes or lesions noted and no wounds General Skin Exam: Negative for jaundice MDM MDM MDM Narrative Medical decision making narrative: Patient is evaluated for worsening neck pain as well as nausea and diarrhea. She states she could not walk yesterday and her legs would not work because she was so weak. She also reports paresthesias to her arms and around her mouth that occurred this morning. That is since resolved. She does not have any focal weakness on exam. No focal neurologic deficits appreciated. I suspect she had a component of electrolyte abnormality/carpopedal spasm from her story. Did obtain blood work given the report of nausea, diarrhea and paresthesias. Patient is a leukopenia with a left shift. BMP shows findings of dehydration with a bicarb of 19.2. Furthermore I suspect she is hemoconcentrated as her hemoglobin is above her baseline today. She has an acute transaminitis with an AST of 910, ALT of 889 and alkaline phosphatase of 269. Of note patient had normal liver enzymes a month ago. Her bilirubin is normal as well as sufficient for acute obstructive process. CPK obtained which is normal. Tylenol level added on however patient states she only had 2 dose of Tylenol yesterday within the last week. This is negative. Acute hepatitis panel is ordered. Patient's lactate is elevated at 2.2 by spec this is more from dehydration and not sepsis/acute infection. After 2 L fluid bolus her lactate is gone down to 1.2. Patient is given multiple medications for her headache and neck pain. Her headache sounds to be like a tension headache. Reports a history of this. No focal neurologic deficits, vision changes or injury reported so I do not think she requires a CT of the brain. Does not report a thunderclap headache. Her neck pain seems to be a mixture of muscle spasm of the sternocleidomastoid as well as possibly cervical neuralgia. Patient is given multiple medications for her symptoms in the ER including Toradol, Zofran, Reglan, lorazepam, droperidol, dexamethasone and Flexeril and continues to have pain in her neck and generalized malaise. She states she does not feel comfortable going home as she lives home alone and does not have a lot of support and she just feels terrible. Case discussed with hospitalist for admission, Dr. Gonzáles. I also discussed the case with GI given her transaminitis, Dr. Spencer. He feels that likely this is either viral or possibly ischemic associated with her low blood pressure as she reported at home. He states management is generally supportive at this time and no further acute recommendations. Stool studies are ordered for patient's diarrhea. Does report a history of intermittent diarrhea but attributes that to her extreme pancreatic insufficiency. Lab Data Attestation: I reviewed the patient's lab results. Labs: Laboratory Results - last 24 hr 01/04/25 01/04/25 01/04/25 10:35 12:14 14:00 WBC 3.2 L RBC 4.95 Hgb 15.1 H Hct 45.0 MCV 90.9 MCH 30.5 MCHC 33.6 RDW Std Deviation 46.0 H RDW Coeff of Nellie 13.7 Plt Count 184 MPV 11.0 Immature Gran % (Auto) 1.000 H Neut % (Auto) 80.6 H Lymph % (Auto) 6.7 L Morehouse % (Auto) 11.1 H Eos % (Auto) 0.0 Baso % (Auto) 0.6 Absolute Neuts (auto) 2.5 Absolute Lymphs (auto) 0.21 L Nucleated RBC % 0 Differential Comment COMMENT Sodium 135 Potassium 3.7 Chloride 104 Carbon Dioxide 19.2 L Anion Gap 12 BUN 26 H Creatinine 0.90 Estim Creat Clear Calc 49.35 L Est GFR (MDRD) Non-Af 67 BUN/Creatinine Ratio 29.0 H Glucose 93 Lactic Acid 2.2 H* Calcium 8.2 Total Bilirubin 0.55 Direct Bilirubin 0.23 AST 910 H ALT 889 H Alkaline Phosphatase 269 H Total Creatine Kinase 68 65 Total Protein 6.7 Albumin 4.0 Globulin 2.7 Lipase 15 Urine Color Urine Clarity Urine pH Ur Specific Orick Urine Protein Urine Glucose (UA) Urine Ketones Urine Occult Blood Urine Nitrite Urine Bilirubin Urine Urobilinogen Ur Leukocyte Esterase Urine RBC Urine WBC Ur Squamous Epith Cells Urine Bacteria Urine Mucus Salicylates < 0.5 L 01/04/25 01/04/25 14:50 15:37 WBC RBC Hgb Hct MCV MCH MCHC RDW Std Deviation RDW Coeff of Nellie Plt Count MPV Immature Gran % (Auto) Neut % (Auto) Lymph % (Auto) Morehouse % (Auto) Eos % (Auto) Baso % (Auto) Absolute Neuts (auto) Absolute Lymphs (auto) Nucleated RBC % Differential Comment Sodium Potassium Chloride Carbon Dioxide Anion Gap BUN Creatinine Estim Creat Clear Calc Est GFR (MDRD) Non-Af BUN/Creatinine Ratio Glucose Lactic Acid 1.2 Calcium Total Bilirubin Direct Bilirubin AST ALT Alkaline Phosphatase Total Creatine Kinase Total Protein Albumin Globulin Lipase Urine Color Yellow Urine Clarity Sl. Cloudy Urine pH 5.0 Ur Specific Orick 1.025 Urine Protein 30 H Urine Glucose (UA) Normal Urine Ketones 15 H Urine Occult Blood Negative Urine Nitrite Negative Urine Bilirubin 1 H Urine Urobilinogen 1 H Ur Leukocyte Esterase Negative Urine RBC 0 SEEN Urine WBC 0 SEEN Ur Squamous Epith Cells 0 SEEN Urine Bacteria 2+ Urine Mucus RARE Salicylates Radiography Diagnostic Testing: Clinical Impression(s) from Imaging Studies Liver Ultrasound 01/04/25 12:02 IMPRESSION: Fatty infiltration of the liver. Status post cholecystectomy. Nonobstructive 9 mm x 6 mm right intrarenal calculus. Reading Location: [place] [id number] Rhythm Strip Rhythm Strip: Sinus Rhythm Rate: 62 Ectopy: None EKG Initial EKG: Attestation: I personally reviewed and interpreted this EKG as follows: Interpretation: Sinus Rhythm Comments: Normal sinus rhythm at a rate of 62 bpm Normal axis Normal intervals Normal ST segments No significant change greater prior EKG on 09/17/2021 Management Discussion w/another healthcare provider: Hospitalist and External Grinder Tender Discharge Plan Triage Chief Complaint: General Illness ED Provider: Radha Elias Dx/Rx/DC Orders Clinical Impression: Elevated liver enzymes, Degenerative cervical disc, Dehydration Primary Care Provider: aKtalina Velazquez Disposition Disposition: Acute Care Hospital [facility]
[2025-01-04 11:41] LABS: CPK Total, Creatine Kinase 68 U/L (24-195); Lipase 15 U/L (13-75)
[2025-01-04 11:42] LABS: Lactic Acid 2.2 mmol/L (0.0-2.0)
[2025-01-04 11:53] LABS: AST(SGOT) 910 U/L (<=31); Alanine Aminotransfer ALT/SGPT 889 U/L (<=34); Alkaline Phosphatase 269 U/L (35-104); Anion Gap 12 (5-15); BUN 26 mg/dL (4-19); Bilirubin, Direct 0.23 mg/dL (0.00-0.30); Calcium,Total 8.2 mg/dL (7.6-11.0); Carbon Dioxide 19.2 mmol/L (21.0-32.0); Chloride 104 mmol/L (98-108); EST Glomerular Filtration Rate 67 (>60); Estimated Creatinine Clearance 49.35 ml/min (50-250); Globulin 2.7 g/dL (2.2-4.2); Glucose 93 mg/dL (70-99); Potassium 3.7 mmol/L (3.3-5.1); Protein, Total 6.7 g/dL (5.9-8.4); Sodium Level 135 mmol/L (133-145); Total Bilirubin 0.55 mg/dL (0.00-1.30)
--- NOTE | 2025-01-04 12:02 | US_ITS ---
PROCEDURE: LIVER 01/04/2025 REASON FOR EXAM: ACUTE TRANSAMINITIS COMPARISON: None FINDINGS: Liver: Diffusely echogenic suggesting fatty infiltration. Gallbladder: Surgically absent. Common bile duct: Normal measuring 5.5 mm . Pancreas: Normal Other: Visualized portions of the right kidney are unremarkable. Findings suggestive of a 9 mm x 6 mm x 5 mm nonobstructive intrarenal calculus. No right upper quadrant ascites. US/Liver IMPRESSION: Fatty infiltration of the liver. Status post cholecystectomy. Nonobstructive 9 mm x 6 mm right intrarenal calculus. Reading Location: [facility]
[2025-01-04] MEDS: Lorazepam 2 MG/ML WCH Syringe 0.5 MG IV (13:02)
[2025-01-04] MEDS: Metoclopramide 10 MG/2 ML Vial 2.5 MG IV (13:02)
[2025-01-04 13:15] LABS: Salicylate < 0.5 mg/dL (2.8-20.0)
[2025-01-04 14:47] LABS: Reflex Lactate? Y
[2025-01-04 15:04] LABS: Red Blood Cells-Urine 0 SEEN /hpf (0-5); Squamous Epithelial Cells - UA 0 SEEN /hpf (5-10); White Blood Cells 0 SEEN /hpf (0-5)
[2025-01-04 15:32] LABS: CPK Total, Creatine Kinase 65 U/L (24-195)
[2025-01-04 15:33] LABS: Color, Urine Yellow (Yellow); Glucose, Dipstick Normal (Normal); Ketone-Dipstick 15 mg/dl (Negative); Leukocyte Esterase-Dipstick Negative /ul (Negative); Nitrite-Dipstick Negative (Negative); Occult Blood-Urine Negative /ul (Negative); Protein-Dipstick 30 mg/dl (Negative); Specific Gravity, Urine 1.025 (1.002-1.030); Urine Clarity Sl. Cloudy (Clear); Urine Urobilinogen 1 mg/dl (Normal)
[2025-01-04] MEDS: dexAMETHasone 10 MG/ML Vial 6 MG IV (15:42)
[2025-01-04 15:44] LABS: Urine Bilirubin Dipstick 1 mg/dL (Negative)
[2025-01-04] MEDS: cycloBENZAPRine HCl 5 MG TABLET PO (15:52)
--- NOTE | 2025-01-04 16:07 | PCM.HP.STD ---
HPI - General General Date of Admission: 01/04/25 Date of Service: 01/04/25 Chief Complaint: Neck pain, diarrhea, generalized weakness HPI Narrative BURAK RAMIREZ, is a 74-year-old female history of degenerative disc disease, fibromyalgia, pancreatic insufficiency, anxiety and depression who presented [facility] ED 01/04/2025 for diarrhea, generalized weakness, and numbness and tingling of her hands and around her face as well as increased neck pain and headache. She has had diarrhea all day yesterday and feels so weak that she cannot walk. Has also had some nausea but no vomiting. Also has worsening of her chronic back and neck pain. Having posterior headache as well as arm heaviness. Patient does follow with Dr. Coyle for pain management, Dr. Smith for orthospine, and Dr. Spencer for GI. In the ED patient afebrile with a blood pressure 100/58, 100% on room air with respiratory rate of 20 and heart rate of 79. CBC demonstrated a white blood cell count of 3.2, hemoglobin 15.1 and BMP with a creatinine of 0.90 and BUN of 26, slightly up from baseline but not significantly so. Lactic acid also 2.2. Liver panel revealed new elevations in liver function with an AST of 910, ALT 889, and alk phos of 269. Hepatitis panel ordered and is pending, salicylate negative, liver ultrasound only demonstrated fatty infiltration of the liver and previous cholecystectomy. Given pts new and significant liver function elevations hospitalist contacted for admission. Patient evaluated at bedside reports that she is here because she is concerned about the neck pain that starts in her neck and goes up her head and started as a zap and out intermittently will have some pulsing pain, reports she feels like her arms and lower face have some numbness though it is better than when she came in, reports that yesterday she had increase in her chronic lower back pain with numbness in her feet but this is back to baseline, the diarrhea started yesterday and she has had many episodes, had 1 earlier when she arrived but has not in the past couple of hours, little bit of generalized abdominal pain. When asked if she has any lightheadedness she reports she feels off balance. Denies any fevers, no change in urination. [facility] Medical History (Updated 01/04/25 @ 16:[address] Makenzie Gonzáles MD) Acute conjunctivitis, unspecified Acute kidney injury Allergic conjunctivitis Allergic rhinosinusitis Allergies Anxiety Anxiety and depression Arthritis At high risk for cardiovascular disease Atypical chest pain Blister of gingiva with infection Breast lump Calcification of abdominal aorta Chronic back pain Chronic neck pain Coronary artery calcification Coronary artery disease De Quervain's tenosynovitis Degenerative cervical disc Degenerative disc disease Depression Depressive disorder Diverticulitis EIC (epidermal inclusion cyst) Elevated liver enzymes Epigastric pain Fibromyalgia Fibromyoma Flu vaccine need Former smoker H/O emotional problems History of back problems Hx of cataract Hx of headache Hydronephrosis Hypocalcemia Hypokalemia IBS (irritable bowel syndrome) Left knee pain Localized swelling, mass and lump, neck Lumbar back pain Mass of urinary bladder Normocytic anemia Osteoarthritis Osteoporosis Panic disorder Positive P-ANCA titer Retroperitoneal lymphadenopathy Right knee pain Screening for cardiovascular condition Submandibular lymphadenopathy 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 Umbilical hernia Urinary tract infection with hematuria Varicose veins of bilateral lower extremities with pain Home Medications ?Medication ?Instructions ?Recorded ?Last Taken ?Type calcium carbonate 1,200 mg PO DAILY 07/07/19 01/04/25 History Lactobacillus acidophilus and 1 ea PO DAILY 09/09/19 01/04/25 History rhamnosus 15 billion cell capsule vitamins A,C,N-rzmg-knwoww 4,296 1 cap PO BID 12/19/21 01/04/25 History mcg-226 mg-90 mg capsule (PreserVision AREDS) dicyclomine 20 mg tablet 20 mg PO BID PRN abdominal pain 7 07/25/23 Unknown Rx days #14 tabs cholecalciferol (vitamin D3) 25 25 mcg PO DAILY 07/30/23 01/04/25 History mcg (1,000 unit) capsule comp.stocking,thigh,long,small #2 ea 12/16/23 Unknown Rx hydroxyzine HCl 25 mg tablet 25 mg PO BID PRN anxiety #60 tabs 06/12/24 Unknown Rx gabapentin 100 mg capsule 100 mg PO TID PRN NERVE PAIN 07/13/24 Unknown History denosumab 60 mg/mL subcutaneous 60 mg subcut [id number] #1 mL 07/28/24 08/14/24 Rx syringe bupropion HCl 150 mg 24 hr tablet, 150 mg PO DAILY #90 tabs 10/04/24 01/04/25 Rx extended release fzbvzp-cugtpdaa-eudspbe 1 cap PO TID #320 caps 10/25/24 01/04/25 Rx 36,000-114,000-180,000 unit capsule,delay rel (Creon) cholestyramine (with sugar) 4 gram 4 g PO QHS PRN diarrhea 01/04/25 Unknown History powder for susp in a packet cyclosporine 0.05 % eye drops in a 1 drp ophthalmic (eye) Q12H 01/04/25 01/04/25 History dropperette (Restasis) duloxetine 30 mg capsule,delayed 30 mg PO DAILY 01/04/25 01/04/25 History release duloxetine 30 mg capsule,delayed 30 mg PO QHS 01/04/25 01/03/25 History release (Cymbalta) vitamin E 268 mg (400 unit) capsule 268 mg PO DAILY 01/04/25 01/04/25 History Allergy/AdvReac Type Severity Reaction Status Date / Time codeine Allergy Rash Verified 01/04/25 10:09 ibandronate sodium (From AdvReac EXTREME Verified 01/04/25 10:09 Boniva) GERD plasic tape Allergy Mild Rash Uncoded 12/08/24 08:46 Family History Father Arthritis Grandmother Diabetes Grandfather Myocardial infarction Mother Myocardial infarction CVA (cerebral vascular accident) Other Fibromyalgia IBS (irritable bowel syndrome) Surgical History (Updated 01/04/25 @ 15:05 by Charo Boykin) Cataract extraction status H/O: hysterectomy History of cholecystectomy History of cholecystectomy History of repair of hiatal hernia Hx of colonoscopy Social History Smoking Status: Former smoker alcohol intake: never substance use type: does not use what type of physical activity do you participate in: none ROS ROS Narrative General: Denies fever/chills HENT: Posterior neck and headache, denies sore throat EYES: Denies changes in vision Resp: Denies cough, denies shortness of breath Cardiac: Denies chest pain GI: Little bit of nausea, little bit of general abdominal pain, 1 and half days of diarrhea : Denies changes in urination Extremity: Denies swelling MSK: Wayside arms were heavy Neuro: Wayside some numbness and tingling in hands and around mouth Heme: Denies any bleeding or bruising Skin: Denies rashes Psychiatric: No complaints voiced Vital Signs Vital Signs Vital Signs: 01/04/25 10:08 01/04/25 10:09 01/04/25 10:12 Temperature 98.2 F 98 F Temperature Source Temporal Temporal Pulse Rate 79 64 Respiratory Rate 20 H 13 Respiratory Pattern Tachypnea Blood Pressure 100/58 L 100/53 L Blood Pressure Mean 72 68 Pulse Ox 100 100 Oxygen Delivery Method Room Air 01/04/25 12:08 01/04/25 14:00 Temperature Temperature Source Pulse Rate 77 77 Respiratory Rate 18 18 Respiratory Pattern Blood Pressure 100/66 100/60 Blood Pressure Mean 77 73 Pulse Ox 96 97 Oxygen Delivery Method Weight Weight: 67.6 kg Body Mass Index (BMI) 24.7 Physical Exam Narrative General: Alert, oriented, no apparent distress HEENT: Atraumatic, normocephalic Eyes: Anicteric, normal conjunctiva, extraocular movements grossly intact Neck: Supple Respiratory: Clear to auscultation bilaterally, normal respiratory effort Cardiovascular: Regular rate and rhythm GI: Soft, nontender, nondistended, no rebound, guarding, rigidity Extremities: No edema Musculoskeletal: Moving all extremities 5 out of 5 strength, no pain on palpation of neck Neuro: No overt focal neurological deficits Skin: No rashes appreciated Psych: Cooperative Results Lab / Micro Data 01/04/25 10:35 01/04/25 10:35 Labs: Laboratory Results - last 24 hr 01/04/25 10:35: WBC 3.2 L, RBC 4.95, Hgb 15.1 H, Hct 45.0, MCV 90.9, MCH 30.5, MCHC 33.6, RDW Std Deviation 46.0 H, RDW Coeff of Nellie 13.7, Plt Count 184, MPV 11.0, Immature Gran % (Auto) 1.000 H, Neut % (Auto) 80.6 H, Lymph % (Auto) 6.7 L, [place] % (Auto) 11.1 H, Eos % (Auto) 0.0, Baso % (Auto) 0.6, Absolute Neuts (auto) 2.5, Absolute Lymphs (auto) 0.21 L, Nucleated RBC % 0, Differential Comment COMMENT, Sodium 135, Potassium 3.7, Chloride 104, Carbon Dioxide 19.2 L, Anion Gap 12, BUN 26 H, Creatinine 0.90, Estim Creat Clear Calc 49.35 L, Est GFR (MDRD) Non-Af 67, BUN/Creatinine Ratio 29.0 H, Glucose 93, Lactic Acid 2.2 H*, Calcium 8.2, Total Bilirubin 0.55, Direct Bilirubin 0.23, AST 910 H, ALT 889 H, Alkaline Phosphatase 269 H, Total Creatine Kinase 68, Total Protein 6.7, Albumin 4.0, Globulin 2.7, Lipase 15 01/04/25 12:14: Salicylates < 0.5 L 01/04/25 14:00: Total Creatine Kinase 65 01/04/25 14:50: Urine Color Yellow, Urine Clarity Sl. Cloudy, Urine pH 5.0, Ur Specific [place] 1.025, Urine Protein 30 H, Urine Glucose (UA) Normal, Urine Ketones 15 H, Urine Occult Blood Negative, Urine Nitrite Negative, Urine Bilirubin 1 H, Urine Urobilinogen 1 H, Ur Leukocyte Esterase Negative Imaging Radiology Impression Liver Ultrasound 01/04/25 12:02 IMPRESSION: Fatty infiltration of the liver. Status post cholecystectomy. Nonobstructive 9 mm x 6 mm right intrarenal calculus. [facility] Assessment & Plan Assessment/Plan (1) Elevated liver enzymes: PLAN: Plan #Elevated liver function tests -Liver US w/ fatty infiltration -Hepatitis panel pending - Salicylate negative - Will check acetaminophen level -Patient reports she took 2 Tylenol arthritis today into yesterday but denies taking any additional Tylenol or any new medications or supplements -Will check PT/INR - ED physician discussed with GI in the ED and it was recommended patient be discharged home if stable with outpatient follow-up, patient was generally weak which is why she required admission, if liver function improves tomorrow may be able to follow closely with GI outpatient however if worsens will likely need inpatient GI consult - Trend CMP - Avoid hepatotoxic agents # Nausea/diarrhea/generalized weakness -IV fluids -Will check enteric panel and C. difficile -Patient leukopenic and also has generalized weakness with GI symptoms and diarrhea as well check respiratory panels -Given her reports of feeling so generally weak she can barely walk and does not feel comfortable going home will also have PT/OT evaluate - Will check TSH # Neck pain -Patient has neck pain that seems to radiate up her head and will intermittently pulse -Neurologically patient has 5 out of 5 strength, initially poor effort however when encouraged multiple times is able to use full-strength -No pain on palpation of neck - Lidocaine patch - Avoiding acetaminophen given elevated liver enzymes - Ibuprofen, Zanaflex - Patient did receive Decadron in the ED # History of pancreatic insufficiency - Continue home Creon #Depression/anxiety -Continue home medications # Fibromyalgia/degenerative disc disease/chronic pain - Continue patient's home medications #DVT ppx: SCDs Makenzie Gonzáles MD Charges/Coding Visit Charges Inpatient E&M: 26816 Init Hosp L2
[2025-01-04 16:08] LABS: Bacteria 2+ /hpf (None Seen); Mucous, Urine RARE /hpf (<or=2+)
[2025-01-04 16:24] LABS: Lactic Acid 1.2 mmol/L (0.0-2.0)
[2025-01-04] MEDS: Haloperidol Lactate 5 MG/ML Vial 1 MG IV (16:36)
[2025-01-04 18:44] LABS: International Normalized Ratio 1.3; Prothrombin Time (Protime)PT. 16.4 SECONDS (11.7-14.9)
--- NOTE | 2025-01-04 18:45 | CASEMGMT ---
Care Management Face to Face with patient for initial transition planning/care coordination assessment in the ED.? This lyric writer introduced self and role at [facility]. Patient alert and oriented. Patient willing to participate in assessment and is able to answer all questions appropriately.? Care providers, pharmacy, and demographics verified. Admitting Diagnosis: Other diagnosis history: fibromyoma, CAD, neuropathy right upper extremity , arthritis, MARISSA PCP: Specialists: Luis Coyle, Friend Preferred [facility]acy: [facility] Insurance: Medicare Prescription Benefit: yes Living Will/HPOA: yes LNOK: Living Arrangements: Lives with in one story home. Independent with ADLs and IADLs Transportation: ?patient drives DME: grab bars, rollator, blood pressure cuff HHC: none SNF/Rehab: none Community Resources: none Behavioral Health History: Depression and Anxiety Patient goals: Patient wishes to discharge home. Disposition Plan: admission to acute; RN CM/SW to follow for discharge planning needs that may arise. Debi Mayogra, MANAGER SOCIAL, INFORMATION TECHNOLOGY PROFESSOR
[2025-01-04 19:53] LABS: Acetaminophen (Tylenol) Level < 5.0 ug/mL (8.0-19.0)
[2025-01-04] MEDS: DULoxetine Hcl 60 MG Capsule PO (23:33)
[2025-01-04] MEDS: 0.9% Saline Lock 10 ML Syringe IV (23:33)
[2025-01-05 04:25] LABS: Absolute Lymphocyte Count 0.27 X10^3/uL (0.83-4.51); Absolute Neutrophil Count 2.7 X10^3/uL (2.0-7.7); Basophil# 0.01 X10^3/uL; Basophil% 0.3 % (0-1); Hematocrit 34.1 % (37-47); Hemoglobin 11.6 g/dL (12.0-15.0); Lymphocyte # 0.27 X10^3/ul (0.83-4.51); Lymphocyte % 8.4 % (19-41); Mean Corpuscular Hgb 30.9 pg (27.0-32.0); Mean Corpuscular Volume 90.7 fL (81-99); Mean Platelet Vol. 10.7 fl (6.2-12.0); Monocyte# 0.21 X10^3/uL; Monocyte% 6.5 % (0-10); NRBC Flagged by Analyzer 0 % (0-5); Neutrophil # 2.71 X10^3/uL (2.7-7.7); Neutrophil % 83.9 % (47-70); POSITIVE DIFFERENTIAL YES; POSITIVE MORPHOLOGY YES; Platelet Count 145 K/mm3 (150-450); RBC Distribution Width CV 13.3 % (11.6-14.6); RBC Distribution Width SD 44.1 fl (35.1-43.9); Red Blood Count 3.76 M/mm3 (4.2-5.4); White Blood Count 3.2 K/mm3 (4.4-11.0)
[2025-01-05 04:49] LABS: Differential Indicated SCAN CRITERIA MET
[2025-01-05 05:04] LABS: ALB/GLOB Ratio 1.8 RATIO (0.9-2.4); AST(SGOT) 324 U/L (<=31); Alanine Aminotransfer ALT/SGPT 494 U/L (<=34); Albumin, Serum 3.3 g/dL (3.4-4.8); Alkaline Phosphatase 186 U/L (35-104); Anion Gap 9 (5-15); BUN 21 mg/dL (4-19); BUN/Creat Ratio 35.3 RATIO (10-20); Calcium,Total 7.2 mg/dL (7.6-11.0); Carbon Dioxide 17.1 mmol/L (21.0-32.0); Chloride 109 mmol/L (98-108); EST Glomerular Filtration Rate 94 (>60); Estimated Creatinine Clearance 55.52 ml/min (50-250); Globulin 1.8 g/dL (2.2-4.2); Glucose 127 mg/dL (70-99); Protein, Total 5.1 g/dL (5.9-8.4); Sodium Level 135 mmol/L (133-145); Total Bilirubin 0.19 mg/dL (0.00-1.30)
[2025-01-05 06:21] VITALS: BP 101/61; PULSE 62; RESP 18; TEMP 36.4; O2SAT 99
[2025-01-05 08:01] VITALS: BP 103/62; PULSE 66; RESP 18; TEMP 36.6; O2SAT 100
[2025-01-05] MEDS: Ibuprofen 600 MG Tablet PO (08:03)
[2025-01-05] MEDS: Creon 12,000 unit DR CapSULE 3 CAP PO ×2 (08:04→12:10)
[2025-01-05] MEDS: DULoxetine Hcl 30 MG Capsule PO (08:04)
--- NOTE | 2025-01-05 09:37 | CASEMGMT ---
Discharge Planning Pt states that he has both a HC POA and LW but her would not know how to find them. She states that she will bring them with her next time she has an appt/labs. SW updated. Faby Sanchez DC Planning Asst.
[2025-01-05] MEDS: buPROPion (XL) 150 MG TABLET.XL PO (10:48)
[2025-01-05 13:48] VITALS: BP 120/71; PULSE 65; RESP 16; TEMP 36.7; O2SAT 98
--- NOTE | 2025-01-05 14:59 | DCINST_ITS ---
Discharge Instructions Diet Discharge Diet: No restrictions (Resume previous diet) DC O2, CPAP, BIPAP needs Home O2 Discharge instructions: No Dressing / Incision Discharge Activity: Return to Normal Activity Weight Bearing Status: Full weight bearing Follow Up Care Test Results: Test results from this visit will be discussed in further detail at your follow- up appointment, if applicable. Discharge Plan Admission Admit Date/Time: 01/04/25 16:08 Primary Reason for Your Visit: Hypovolemic shock, shock liver Attending Provider: Parveen Mosqueda Primary Care Provider: Katalina Velazquez Consulting Providers: Makenzie Gonzáles Instructions Additional Instructions / Restrictions: Get your liver profile rechecked on Wednesday01/08/25 Discharge Orders/Prescriptions Prescriptions: Continued PreserVision AREDS 14,320-226-200 qocb-vb-ljko capsule 1 cap PO BID cholecalciferol (vitamin D3) 25 mcg (1,000 unit) capsule 25 mcg PO DAILY denosumab 60 mg/mL syringe 60 mg subcut [id number] Qty: 1 1RF hydroxyzine HCl 25 mg tablet 25 mg PO BID PRN (Reason: anxiety) Qty: 60 1RF gabapentin 100 mg capsule 100 mg PO TID PRN (Reason: NERVE PAIN) calcium carbonate 600 MG tablet 1,200 mg PO DAILY L. acidophilus-L. rhamnosus 1 EACH capsule 1 ea PO DAILY dicyclomine 20 mg tablet 20 mg PO BID PRN (Reason: abdominal pain) 7 Days Qty: 14 0RF duloxetine [Cymbalta] 30 mg capsule,delayed release(DR/EC) 60 mg PO QHS Rx Instructions: TAKE 1 CAP IN AM, 2 CAPS QHS cyclosporine [Restasis] 0.05 % dropperette 1 drp ophthalmic (eye) Q12H cholestyramine (with sugar) 4 gram powder in packet 4 g PO QHS PRN (Reason: diarrhea) duloxetine 30 mg capsule,delayed release(DR/EC) 30 mg PO DAILY Rx Instructions: TAKE 1 CAP IN AM, 2 CAPS QHS vitamin E 268 mg (400 unit) capsule 268 mg PO DAILY bupropion HCl 150 mg tablet extended release 24 hr 150 mg PO DAILY Qty: 90 1RF Creon 36,000-114,000- 180,000 unit capsule,delayed release(DR/EC) 1 cap PO TID Qty: 320 11RF Rx Instructions: administer with meals and/or snacks Referrals / Follow Up: Katalina Velazquez MD [Primary Care Provider] - See Referral Note (At next office visit) Disposition Disposition (needs filled in before D/C Order can be placed): Home, Self Care
--- NOTE | 2025-01-05 15:09 | DS.PCM_ITS ---
Providers Date of Admission: 01/04/25 Date of Discharge: 01/05/25 Primary Care Physician: Dr. Katalina Velazquez MD Reason For Visit: ELEVATED LIVER FUNCTION TESTS, DIARRHEA Diagnosis Discharge Diagnosis (1) Elevated liver enzymes: Status: Acute Code(s): R74.8 - Abnormal levels of other serum enzymes Plan 1. Elevated liver enzymes from shock liver secondary to hypotension #2 hypotension secondary to volume depletion #3 pancreatic insufficiency Medications at Discharge Home Medications calcium carbonate 1,200 mg PO DAILY 07/07/19 Lactobacillus acidophilus and rhamnosus 15 billion cell capsule 1 ea PO DAILY 09/09/19 vitamins A,C,K-dmdv-shfhri 4,296 mcg-226 mg-90 mg capsule (PreserVision AREDS) 1 cap PO BID 12/19/21 dicyclomine 20 mg tablet 20 mg PO BID PRN abdominal pain 7 days #14 tabs 07/25/23 cholecalciferol (vitamin D3) 25 mcg (1,000 unit) capsule 25 mcg PO DAILY 07/30/23 hydroxyzine HCl 25 mg tablet 25 mg PO BID PRN anxiety #60 tabs 06/12/24 gabapentin 100 mg capsule 100 mg PO TID PRN NERVE PAIN 07/13/24 denosumab 60 mg/mL subcutaneous syringe 60 mg subcut [id number] #1 mL 07/28/24 bupropion HCl 150 mg 24 hr tablet, extended release 150 mg PO DAILY #90 tabs 10/04/24 [id number]-[id number] 36,000-114,000-180,000 unit capsule,delay rel (Creon) 1 cap PO TID #320 caps 10/25/24 cholestyramine (with sugar) 4 gram powder for susp in a packet 4 g PO QHS PRN diarrhea 01/04/25 cyclosporine 0.05 % eye drops in a dropperette (Restasis) 1 drp ophthalmic (eye) Q12H 01/04/25 duloxetine 30 mg capsule,delayed release 30 mg PO DAILY 01/04/25 duloxetine 30 mg capsule,delayed release (Cymbalta) 60 mg PO QHS NERVE PAIN 01/04/25 vitamin E 268 mg (400 unit) capsule 268 mg PO DAILY 01/04/25 Hospital Course Operations None Procedures None Summary of Care Provided Minutes Spent on Discharge: 30 Hospital Course: This 74-year-old white female was seen in the emergency room at [facility] presenting with complaints of diarrhea, generalized weakness, headache, and numbness and tingling of her hands. She stated she took her blood pressure at home and it was low. Vital signs in the emergency room showed her blood pressure to be 100/58, labs were remarkable for a white blood cell count of 3.2, BUN was elevated at 26, lactic acid was elevated 2.2, AST was elevated at 910, ALT was elevated at 889, alkaline phosphatase was elevated at 269. UA showed +2 bacteria but no white cells or red cells. Liver ultrasound showed fatty infiltration of the liver and a nonobstructive right intrarenal calculus. The patient was admitted to [place] [id number] and given IV fluids, patient's blood pressure improved during her hospitalization, repeat liver enzymes declined markedly. It was felt that the patient had shock liver. Patient requested discharge home and stated that she felt fine and was able to walk without difficulty. On 01/05/2025, patient was seen and examined: On examination she appeared in good health and spirits, she does not appear to be in any distress. Vital signs as documented. Skin warm and dry and without overt rashes. Neck without JVD, thyroid appears normal, trachea is midline, neck is supple. Lungs clear, normal air movement was noted. Heart exam notable for regular rhythm, normal sounds and absence of murmurs, rubs or gallops. Abdomen unremarkable and without evidence of organomegaly, masses, or abdominal aortic enlargement, bowel sounds are present in all 4 quadrants, no abdominal tenderness was noted. Extremities nonedematous, no cyanosis was noted, no clubbing was noted. Neuro: Cranial nerves II through XII are grossly intact, no focal motor deficits were noted, sensation to light touch and pinprick is intact, motor exam 5/5 throughout. Psych: Patient is alert and oriented x3, she does not appear anxious or depressed, she does not appear agitated. Patient was discharged home in stable condition on 01/05/2025. Weight / BMI Weight Weight: 67.3 kg Body Mass Index (BMI) 24.7 ABG / Lab / Microbiology Data 01/05/25 03:51 01/05/25 03:51 Laboratory: Laboratory Results - last 24 hr 01/04/25 14:00: Total Creatine Kinase 65 01/04/25 14:50: Urine Color Yellow, Urine Clarity Sl. Cloudy, Urine pH 5.0, Ur Specific [place] 1.025, Urine Protein 30 H, Urine Glucose (UA) Normal, Urine Ketones 15 H, Urine Occult Blood Negative, Urine Nitrite Negative, Urine Bilirubin 1 H, Urine Urobilinogen 1 H, Ur Leukocyte Esterase Negative, Urine RBC 0 SEEN, Urine WBC 0 SEEN, Ur Squamous Epith Cells 0 SEEN, Urine Bacteria 2+, Urine Mucus RARE 01/04/25 15:37: Lactic Acid 1.2 01/04/25 18:30: PT 16.4 H, INR 1.3, TSH 5.350 H, Acetaminophen < 5.0 L 01/05/25 03:51: WBC 3.2 L, RBC 3.76 L, Hgb 11.6 L, Hct 34.1 L, MCV 90.7, MCH 30.9, MCHC 34.0, RDW Std Deviation 44.1 H, RDW Coeff of Nellie 13.3, Plt Count 145 L, MPV 10.7, Immature Gran % (Auto) 0.900, Neut % (Auto) 83.9 H, Lymph % (Auto) 8.4 L, [place] % (Auto) 6.5, Eos % (Auto) 0.0, Baso % (Auto) 0.3, Absolute Neuts (auto) 2.7, Absolute Lymphs (auto) 0.27 L, Nucleated RBC % 0, Sodium 135, Potassium 4.0, Chloride 109 H, Carbon Dioxide 17.1 L, Anion Gap 9, BUN 21 H, C reatinine 0.60 L, Estim Creat Clear Calc 55.52, Est GFR (MDRD) Non-Af 94, B UN/Creatinine Ratio 35.3 H, Glucose 127 H, Calcium 7.2 L, Total Bilirubin 0.19, AST 324 H, ALT 494 H, Alkaline Phosphatase 186 H, Total Protein 5.1 L, Albumin 3.3 L, Globulin 1.8 L, Albumin/Globulin Ratio 1.8 Microbiology: Microbiology 01/04/25 16:42 Stool Stool Lactoferrin - Final 01/04/25 16:42 Stool Enteric Bacteriology - Final 01/04/25 16:42 Stool Clostridioides difficile (PCR) - Final 01/04/25 19:35 Mucosa - Nasopharyngeal Respiratory Panel (PCR) - Final 01/04/25 18:20 Nasal Secretion SARS-CoV-2 Antigen (Rapid) - Final D/C Instructions Discharge Diet: No restrictions (Resume previous diet) Weight Bearing Status: Full weight bearing DC O2, CPAP, BIPAP Needs Home O2 Discharge instructions: No Meaningful Use Info Meaningful Use Meaningful Use Diagnoses (Choose all that apply): None applicable Ischemic Stroke Statin Dosing Therapy Reference: STATIN DOSE THERAPY REFERENCE: * Patients > 75 years receive moderate or high dose statin therapy. * Patients 75 years or YOUNGER should receive HIGH intensity statin dose unless contraindicated. You will be required to document reason for non-treatment if statin daily dose does not meet guidelines. HIGH DOSE STATIN THERAPY DAILY Atorvastatin > than or = to 40 mg Rosuvastatin > than or = to 20 mg Amlodipine + Atorvastatin > than or = to 2.5/40 mg Ezetimibe + Simvastatin 10/80 mg Simvastatin 80mg Discharge Plan Admission Admit Date/Time: 01/04/25 16:08 Primary Reason for Your Visit: Hypovolemic shock, shock liver Attending Provider: Parveen Mosqueda Primary Care Provider: Katalina Velazquez Consulting Providers: Makenzie Gonzáles Instructions Additional Instructions / Restrictions: Get your liver profile rechecked on Wednesday01/08/25 Discharge Orders/Prescriptions Prescriptions: Continued PreserVision AREDS 14,320-226-200 fula-zj-lljc capsule 1 cap PO BID cholecalciferol (vitamin D3) 25 mcg (1,000 unit) capsule 25 mcg PO DAILY denosumab 60 mg/mL syringe 60 mg subcut [id number] Qty: 1 1RF hydroxyzine HCl 25 mg tablet 25 mg PO BID PRN (Reason: anxiety) Qty: 60 1RF gabapentin 100 mg capsule 100 mg PO TID PRN (Reason: NERVE PAIN) calcium carbonate 600 MG tablet 1,200 mg PO DAILY L. acidophilus-L. rhamnosus 1 EACH capsule 1 ea PO DAILY dicyclomine 20 mg tablet 20 mg PO BID PRN (Reason: abdominal pain) 7 Days Qty: 14 0RF duloxetine [Cymbalta] 30 mg capsule,delayed release(DR/EC) 60 mg PO QHS Rx Instructions: TAKE 1 CAP IN AM, 2 CAPS QHS cyclosporine [Restasis] 0.05 % dropperette 1 drp ophthalmic (eye) Q12H cholestyramine (with sugar) 4 gram powder in packet 4 g PO QHS PRN (Reason: diarrhea) duloxetine 30 mg capsule,delayed release(DR/EC) 30 mg PO DAILY Rx Instructions: TAKE 1 CAP IN AM, 2 CAPS QHS vitamin E 268 mg (400 unit) capsule 268 mg PO DAILY bupropion HCl 150 mg tablet extended release 24 hr 150 mg PO DAILY Qty: 90 1RF Creon 36,000-114,000- 180,000 unit capsule,delayed release(DR/EC) 1 cap PO TID Qty: 320 11RF Rx Instructions: administer with meals and/or snacks Referrals / Follow Up: Katalina Velazquez MD [Primary Care Provider] - See Referral Note (At next office visit) Disposition Disposition (needs filled in before D/C Order can be placed): Home, Self Care Charges/Coding Visit Charges Inpatient E&M: 80654 Disch Hosp
--- NOTE | 2025-01-05 15:30 | CASEMGMT ---
Patient has order for discharge. RN CM in to discuss needs at discharge. Patient denies needs or help at discharge. Patient had no further questions or concerns.
[2025-01-05 15:59] VITALS: BP 114/70; PULSE 66; RESP 16; TEMP 36.6; O2SAT 98
[2025-01-06 07:07] LABS: HEPATITIS B SURFACE AG Negative (Negative); Hep C Antibodies Non Reactive (Non Reactive); Hepatitis A IgM Antibody Negative (Negative); Hepatitis B Core AB IgM Negative (Negative)
== END 2025-01-05 16:05 | disposition home or self-care (01) | DRG 640 ==
LOC: ED 15:23 → MS3 17:14
PROVIDERS: Admitting Provider Internal Medicine; Emergency Provider Emergency Medicine; PCP Internal Medicine; Visit Provider Internal Medicine
DX: E86.9 Volume depletion, unspecified (principal); K72.00 Acute and subacute hepatic failure without coma; I95.9 Hypotension, unspecified; M79.7 Fibromyalgia; I25.10 Atherosclerotic heart disease of native coronary artery without angina pectoris; M50.30 Other cervical disc degeneration, unspecified cervical region; R19.7 Diarrhea, unspecified; F41.8 Other specified anxiety disorders; R11.0 Nausea; M54.9 Dorsalgia, unspecified; K86.89 Other specified diseases of pancreas; Z90.710 Acquired absence of both cervix and uterus; Z87.891 Personal history of nicotine dependence; Z79.899 Other long term (current) drug therapy; Z90.49 Acquired absence of other specified parts of digestive tract; Z98.49 Cataract extraction status, unspecified eye; R74.8 Abnormal levels of other serum enzymes; R53.1 Weakness; G89.29 Other chronic pain
CPT/HCPCS: 36415; 76705; 80048; 80053; 80074; 80076; 80143; 80179; 81001; 82550; 83605; 83630; 83690; 84443; 85025; 85610; 87493; 87506; 87633; 87811; 93005; 97161; 97802; 99284; A4216; J2405

== ENCOUNTER → 2025-01-08 | Outpatient (CLI) | payer MEDICARE, OTHER, SELFPAY ==
[2025-01-08 16:37] LABS: ALB/GLOB Ratio 1.7 RATIO (0.9-2.4); AST(SGOT) 92 U/L (<=31); Alanine Aminotransfer ALT/SGPT 299 U/L (<=34); Alkaline Phosphatase 301 U/L (35-104); Anion Gap 12 (5-15); BUN 16 mg/dL (4-19); BUN/Creat Ratio 21.8 RATIO (10-20); Bilirubin, Direct 0.22 mg/dL (0.00-0.30); Calcium,Total 9.4 mg/dL (7.6-11.0); Chloride 102 mmol/L (98-108); Cholesterol 175 mg/dL (<=200); Creatinine, Serum 0.73 mg/dL (0.70-1.20); EST Glomerular Filtration Rate 87 (>60); Globulin 2.4 g/dL (2.2-4.2); Glucose 102 mg/dL (70-99); High Density Lipoprotein 57 mg/dL; Low Density Lipoprotein Calc. 97 mg/dL; Protein, Total 6.3 g/dL (5.9-8.4); Sodium Level 140 mmol/L (133-145); Total Bilirubin 0.43 mg/dL (0.00-1.30); Triglycerides 103 mg/dL; Very Low Density Lipoprotein 21 mg/dL (5-40); cholesterol:hdl ratio screen 3.05
== END | disposition home or self-care (01) ==
LOC: LAB 11:51
PROVIDERS: PCP Internal Medicine; Referring Provider Internal Medicine; Visit Provider Internal Medicine
DX: R74.8 Abnormal levels of other serum enzymes (principal); K72.00 Acute and subacute hepatic failure without coma
CPT/HCPCS: 36415; 80053; 80061; 82248

== ENCOUNTER → 2025-01-29 | Outpatient (CLI) | payer MEDICARE, OTHER, SELFPAY ==
[2025-01-29 13:52] LABS: ALB/GLOB Ratio 1.7 RATIO (0.9-2.4); AST(SGOT) 26 U/L (<=31); Alanine Aminotransfer ALT/SGPT 34 U/L (<=34); Albumin, Serum 4.2 g/dL (3.4-4.8); Alkaline Phosphatase 145 U/L (35-104); Anion Gap 9 (5-15); BUN 13 mg/dL (4-19); BUN/Creat Ratio 19.3 RATIO (10-20); Calcium,Total 9.5 mg/dL (7.6-11.0); Carbon Dioxide 25.6 mmol/L (21.0-32.0); Chloride 106 mmol/L (98-108); Creatinine, Serum 0.69 mg/dL (0.70-1.20); EST Glomerular Filtration Rate 91 (>60); Globulin 2.5 g/dL (2.2-4.2); Glucose 106 mg/dL (70-99); Potassium 4.4 mmol/L (3.3-5.1); Protein, Total 6.7 g/dL (5.9-8.4); Sodium Level 140 mmol/L (133-145); Total Bilirubin 0.36 mg/dL (0.00-1.30)
== END | disposition home or self-care (01) ==
LOC: BIMLAB 10:57
PROVIDERS: PCP Internal Medicine; Referring Provider Internal Medicine; Visit Provider Internal Medicine
DX: R74.8 Abnormal levels of other serum enzymes (principal); E04.1 Nontoxic single thyroid nodule
CPT/HCPCS: 36415; 80053; 84439; 84443

== ENCOUNTER → 2025-03-28 | Outpatient (CLI) | payer MEDICARE, OTHER, SELFPAY | END | disposition home or self-care (01) | PROVIDERS: PCP Internal Medicine; Referring Provider Physician Assistant; Visit Provider Physician Assistant | DX: R82.90 Unspecified abnormal findings in urine (principal) | CPT/HCPCS: 87086 ==

== ENCOUNTER → 2025-04-03 | Outpatient (CLI) | payer MEDICARE, OTHER, SELFPAY ==
--- NOTE | 2025-04-03 12:32 | CT_ITS ---
PROCEDURE: LOW DOSE CT LUNG SCREENING 04/03/2025 REASON FOR EXAM: LUNG CANCER SCREENING TECHNIQUE: LOW DOSE CT LUNG SCREENING Coronal and Sagittal reconstruction series were provided. Lung windows only One or more dose reduction techniques were used (e.g., Automated exposure control, adjustment of the mA and/or kV according to patient size, use of iterative reconstruction technique). REFERENCE LINK: [employer] Lung-RADS RADIATION DOSE SUMMARY: DLP: 63 mGycm COMPARISON: September 14, 2024 FINDINGS: PULMONARY NODULES: (Only nodules >3mm are reported) Pulmonary Nodules: There is a 0.8 x 0.6 cm solid nodular density in the left lung base, image 172/227, new. There is a 0.5 cm nodular density in the left lingular segment, image 177/227, new. Hardware:None Lymph Nodes:None Heart and Vasculature:Atherosclerotic calcifications are noted Lungs and Airways: There is no acute infiltrate or consolidation Pleura:There is no pneumothorax or effusion Upper Abdomen:Anatomic detail is limited Bones:There is no visible bony abnormality CT/Low Dose CT Lung Screening IMPRESSION: There is a 0.8 x 0.6 cm solid nodular density in the left lung base, image 172/ 227, new. There is a 0.5 cm nodular density in the left lingular segment, image 177/227, new. Coronary artery calcification (CAC) is present Lung-RADS Category: 4A: Probably suspicious: Three-month chest CT correlation i s recommended. Reading Location: [facility]
== END | disposition home or self-care (01) ==
LOC: CT 12:32
PROVIDERS: PCP Internal Medicine; Referring Provider Nurse Practitioner Family; Visit Provider Nurse Practitioner Family
DX: Z87.891 Personal history of nicotine dependence (principal); Z12.2 Encounter for screening for malignant neoplasm of respiratory organs
CPT/HCPCS: 71271

== ENCOUNTER 2025-05-12 08:36 | Emergency (ER) | payer MEDICARE, OTHER, SELFPAY ==
[2025-05-12 08:36] VITALS: BP 138/75; PULSE 68; RESP 14; TEMP 36.5; O2SAT 100; BMI 24.7
[2025-05-12 08:53] VITALS: BP 139/74; PULSE 72; RESP 14; TEMP 36.6; O2SAT 100
--- NOTE | 2025-05-12 08:56 | ED.VIS.DENTA ---
HPI History of Present Illness Chief Complaint: Dental Informant: patient Onset/Context/Timing Onset: Days Context: Gradual Onset Timing: Continuous Current Severity: Moderate Maximum Severity: Moderate Relieved by: NSAIDs Associated Symptoms Assocated Symptom - Dental: Negative for fever, face swelling, cold sensitivity or hot sensitivity Narrative Narrative: 74-year-old female history of fibromyalgia and TMJ. Complaining of right lower and upper dental pain. Denies any fall injury or trauma. She thinks she has mild swelling. She called her dentist she cannot get into see them till Wednesday. But they did call her in a penicillin antibiotic. Patient states she has been using ibuprofen and Tylenol without relief. She has gabapentin at home that is not helping with the pain. Prior similar symptoms: Yes Recent Illness/Hospitalization: No PFSH PFSH Medical History Encounter for screening for malignant neoplasm of lung Health care maintenance Elevated liver enzymes Degenerative disc disease Fibromyoma Depression Former smoker Coronary artery disease At high risk for cardiovascular disease Localized swelling, mass and lump, neck Blister of gingiva with infection Submandibular lymphadenopathy Screening for cardiovascular condition Degenerative cervical disc Flu vaccine need Ulnar neuropathy of right upper extremity Chronic neck pain Allergic rhinosinusitis Allergic conjunctivitis Acute conjunctivitis, unspecified Varicose veins of bilateral lower extremities with pain Chronic back pain Anxiety and depression Hx of headache H/O emotional problems Hx of cataract History of back problems Allergies Urinary tract infection with hematuria Positive P-ANCA titer Osteoarthritis Breast lump Arthritis Left knee pain Hypokalemia Hypocalcemia De Quervain's tenosynovitis Anxiety Acute kidney injury TMJ arthralgia Right knee pain Mass of urinary bladder EIC (epidermal inclusion cyst) Depressive disorder Coronary artery calcification Calcification of abdominal aorta Atypical chest pain Epigastric pain Umbilical hernia Retroperitoneal lymphadenopathy Panic disorder Normocytic anemia Lumbar back pain IBS (irritable bowel syndrome) Hydronephrosis Diverticulitis Osteoporosis Fibromyalgia Home Medications ?Medication ?Instructions ?Recorded ?Last Taken ?Type calcium carbonate 1,200 mg PO DAILY 07/07/19 01/04/25 History Lactobacillus acidophilus and 1 ea PO DAILY 09/09/19 01/04/25 History rhamnosus 15 billion cell capsule vitamins A,C,P-tmij-gjkdvr 4,296 1 cap PO BID 12/19/21 01/04/25 History mcg-226 mg-90 mg capsule (PreserVision AREDS) dicyclomine 20 mg tablet 20 mg PO BID PRN abdominal pain 7 07/25/23 Unknown Rx days #14 tabs cholecalciferol (vitamin D3) 25 25 mcg PO DAILY 07/30/23 01/04/25 History mcg (1,000 unit) capsule gabapentin 100 mg capsule 100 mg PO TID PRN NERVE PAIN 07/13/24 Unknown History denosumab 60 mg/mL subcutaneous 60 mg subcut [id number] #1 mL 07/28/24 08/14/24 Rx syringe mfsovx-gzzstwhh-vjufwat 1 cap PO TID #320 caps 10/25/24 01/04/25 Rx 36,000-114,000-180,000 unit capsule,delay rel (Creon) cholestyramine (with sugar) 4 gram 4 g PO QHS PRN diarrhea 01/04/25 Unknown History powder for susp in a packet cyclosporine 0.05 % eye drops in a 1 drp ophthalmic (eye) Q12H 01/04/25 01/04/25 History dropperette (Restasis) duloxetine 30 mg capsule,delayed 60 mg PO QHS NERVE PAIN 01/04/25 01/03/25 History release (Cymbalta) vitamin E 268 mg (400 unit) capsule 268 mg PO DAILY 01/04/25 01/04/25 History bupropion HCl 150 mg 24 hr tablet, 150 mg PO DAILY #90 tabs 04/26/25 Unknown Rx extended release duloxetine 30 mg capsule,delayed 30 mg PO DAILY #270 caps 04/26/25 Unknown Rx release hydroxyzine HCl 25 mg tablet 25 mg PO BID PRN anxiety #180 tabs 04/26/25 Unknown Rx amoxicillin 500 mg capsule 500 mg PO TID dental pain 05/12/25 Unknown History oxycodone-acetaminophen 5 mg-300 1 tab PO Q8H PRN pain 3 days #10 05/12/25 Unknown Rx mg tablet tabs Allergy/AdvReac Type Severity Reaction Status Date / Time codeine Allergy Rash Verified 05/12/25 08:38 ibandronate sodium (From AdvReac EXTREME Verified 05/12/25 08:38 Boniva) GERD plasic tape Allergy Mild Rash Uncoded 04/03/25 12:04 Family History Father Arthritis Grandmother Diabetes Grandfather Myocardial infarction Mother Myocardial infarction CVA (cerebral vascular accident) Other Fibromyalgia IBS (irritable bowel syndrome) Surgical History History of cholecystectomy History of cholecystectomy H/O: hysterectomy Hx of colonoscopy Cataract extraction status History of repair of hiatal hernia Social History Smoking Status: Former smoker alcohol intake: never substance use type: does not use what type of physical activity do you participate in: none ROS ROS ED ROS Narrative Denies recent illness. Atraumatic right-sided dental pain. Constitutional Constitutional ED: Denies chills or fever(s) Eyes Eyes: Denies blurry vision ENT ENT ED: Denies ear pain Cardiovascular Cardiovascular: Denies chest pain Respiratory/Chest Respiratory/Chest: Denies cough or dyspnea Gastrointestinal Gastrointestinal: Denies abdominal pain Genitourinary Genitourinary ED: Denies dysuria or hematuria Musculoskeletal Musculoskeletal: Denies arthralgias Integumentary Denies abscess or Abrasions Neurologic Neurologic: Denies headache(s) Psychiatric Psychiatric: Denies anxiety or depression Endocrine Endocrinology: Denies cold intolerance Hematologic/Lymphatic Hematologic/Lymphatic: Denies easy bleeding, easy bruising or lymphadenopathy Allergic/Immunologic Allergic/Immunologic ED: Denies mouth swelling, tongue swelling or urticaria EXAM Physical Exam Narrative Exam Narrative: 74-year-old female sitting upright in bed. No acute distress. Coming by her . Vital signs stable afebrile. H EENT exam pupils round react to light. Moist mucous membranes. Normal-appearing tongue. Floor of her mouth is normal. She has had dental work done. There is no signs of any obvious cavity. There is no gingival swelling. There is no abscess. There is no trismus. There is no TMJ pain. She can open and close her mouth without any difficulty. She has no trouble swallowing. There is no obvious dental infection or cavities seen. There is no swelling to her jaw or face or neck. There is no lymphadenopathy. Neck nontender. Lungs clear. Heart regular rhythm no murmur. Abdomen soft nontender. Moving all 4 extremities. Nontender no edema. She is awake and alert. Const Vital Signs: 05/12/25 08:36 05/12/25 08:53 Temperature 97.7 F L 97.8 F Temperature Source Temporal Pulse Rate 68 72 Respiratory Rate 14 14 Blood Pressure 138/75 H 139/74 H Blood Pressure Mean 96 95 Pulse Ox 100 100 Oxygen Delivery Method Room Air Positive well nourished and well developed; Negative for obese, cachectic, contractures or unkempt General Appearance ED: well developed and NAD; Negative for unkempt, cachectic or contractures Nutritional Appearance: Negative for cachectic or obese HEENT Negative for trauma or tenderness Face and Sinus: Negative for sinuses nontender Mouth ED: Yes oral and palatal mucosa normal, Yes lips normal, Yes tongue normal and Yes salivary gland normal Mouth: oral and palatal mucosa normal, lips normal, tongue normal and salivary gland normal Teeth and Gingiva: Negative for abnormal tooth and associated gingiva, caries, gingiva abnormal, poor dentition or teeth discoloration Throat: posterior oropharynx normal Eyes PERRL and EOMs intact bilaterally Neck no lymphadenopathy, supple and no JVD General: normal visual inspection Lymph Lymphatic: no lymphadenopathy noted Chest Wall inspection of chest normal and palpation of chest normal Resp normal respiratory effort, no retractions and clear to auscultation bilaterally Cardio regular rate, regular rhythm, S1 normal heart sound, S2 normal heart sound and no murmurs GI normal to inspection, nondistended, normoactive bowel sounds, non-tender and non-distended Back/Spine no CVA tenderness Extremity normal to inspection and no joint enlargement Neuro oriented x3, CN's II-XII intact bilaterally, moves all extremities and no focal motor deficits Sensorium / Orientation: alert, oriented to person, oriented to place and oriented to time Motor Exam: strength 5/5 throughout Psych mental status grossly normal Appearance: Negative for unkempt Skin no rashes or lesions noted and no wounds MDM MDM MDM Narrative Medical decision making narrative: 74-year-old with dental pain. I cannot find a specific cause. Does not appear to be TMJ. There is no obvious cavity. There is no gingivitis. There is no abscess. There is no Dickson's. There is no swelling. No lymphadenopathy. Her dentist is already called her in amoxicillin. She is already using Tylenol and ibuprofen and gabapentin for pain. She be written for very few oxycodone. She will follow-up with her dentist on Wednesday. She does not a labs or imaging. History & Record Review Discussion w/independent historian: Patient and Family Additional record(s) reviewed:: Prior inpatient record, Prior outpatient record, Prior ED visit and Prior labs Discharge Plan Triage Chief Complaint: Dental ED Provider: Dain Waller Dx/Rx/DC Orders Clinical Impression: Pain, dental Instructions: ED Dental Pain Prescriptions: New oxycodone-acetaminophen 5-300 mg tablet 1 tab PO Q8H PRN (Reason: pain) 3 Days Qty: 10 0RF No Action PreserVision AREDS 14,320-226-200 [id number] capsule 1 cap PO BID cholecalciferol (vitamin D3) 25 mcg (1,000 unit) capsule 25 mcg PO DAILY denosumab 60 mg/mL syringe 60 mg subcut [id number] Qty: 1 1RF gabapentin 100 mg capsule 100 mg PO TID PRN (Reason: NERVE PAIN) calcium carbonate 600 MG tablet 1,200 mg PO DAILY L. acidophilus-L. rhamnosus 1 EACH capsule 1 ea PO DAILY dicyclomine 20 mg tablet 20 mg PO BID PRN (Reason: abdominal pain) 7 Days Qty: 14 0RF duloxetine [Cymbalta] 30 mg capsule,delayed release(DR/EC) 60 mg PO QHS Rx Instructions: TAKE 1 CAP IN AM, 2 CAPS QHS cyclosporine [Restasis] 0.05 % dropperette 1 drp ophthalmic (eye) Q12H Patient Comments: only takes as needed cholestyramine (with sugar) 4 gram powder in packet 4 g PO QHS PRN (Reason: diarrhea) vitamin E 268 mg (400 unit) capsule 268 mg PO DAILY amoxicillin 500 mg capsule 500 mg PO TID Creon 36,000-114,000- 180,000 unit capsule,delayed release(DR/EC) 1 cap PO TID Qty: 320 11RF Rx Instructions: administer with meals and/or snacks duloxetine 30 mg capsule,delayed release(DR/EC) 30 mg PO DAILY Qty: 270 1RF Rx Instructions: TAKE 1 CAP IN AM, 2 CAPS QHS bupropion HCl 150 mg tablet extended release 24 hr 150 mg PO DAILY Qty: 90 1RF hydroxyzine HCl 25 mg tablet 25 mg PO BID PRN (Reason: anxiety) Qty: 180 1RF Primary Care Provider: Katalina Velazquez Referrals: Katalina Velazquez MD [Primary Care Provider] - Activity Restrictions/Additional Instructions: Ice to your jaw. Motrin for pain. Oxycodone for severe pain. Follow-up with your dentist on Wednesday. Use the antibiotic they prescribed. Currently I do not see an infection but sometimes it is early and you do not see signs of the infection. Print Language: Armenian Disposition Disposition: Home, Self Care
--- OUTSIDE RECORDS SUMMARY | 2025-05-12 09:10 | XMS RPT_ITS | CCD ---
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 Lilly Vicente Primary Care Provider Dr. Lilly Vicente Referring Provider [phone] Dr. Lilly Vicente Other Provider 1([facility]) Dr. Kishor Isabel Attending Provider 1([facility])[phone] Ez Spencer Attending Provider 1([facility]) [phone] Dr. Lilly Vicente Primary Care Provider Dr. Lilly Vicente Referring Provider [phone]) Dr. Lilly Vicente Primary Care Provider Dr. Lilly Vicente Referring Provider 1(330) Dr. Ez Spencer Attending Provider [phone] Dr. Lilly Vicente Primary Care Provider Dr. Lilly Vicente Referring Provider 1(330) Dr. Ez Spencer Attending Provider [phone] BRIANNE Bernard Attending Provider Dr. Lilly Vicente Primary Care Provider Dr. Lilly Vicente Referring Provider 1(330) Dr. Simon Acevedo Attending Provider [phone] Dr. Lilly Vicente Primary Care Provider Dr. Lilly Vicente Referring Provider [phone]) BRIANNE Bernard Attending Provider Dr. Simon Acevedo Attending Provider [phone] Dr. Ez Spencer Attending Provider [phone] Katalina Velazquez Attending Provider [phone] Dr. Lilly Vicente Primary Care Provider Dr. Lilly Vicente Referring Provider 1(330) Dr. Simon Acevedo Attending Provider [phone] Dr. Austin Avina Attending Provider [phone] Katalina Velazquez Primary Care Provider [phone] Dr. Lilly Vicente Primary Care Provider Dr. Lilly Vicente Referring Provider [phone]) Dr. Simon Acevedo Attending Provider [phone] Dr. Lilly Vicente Referring Provider [phone]) Dr. Katalina Velazquez Attending Provider [phone] Dr. Lilly Vicente Referring Provider 1(330) Dr. Austin Avina Attending Provider [phone] Katalina Velazquez Primary Care Provider [phone] Dr. Katalina Velazquez Attending Provider [phone] Dr. Katalina Velazquez Referring Provider [phone] BRIANNE Bernard Attending Provider Dr. Lilly Vicente Referring Provider [phone]) Dr. Katalina Velazquez Primary Care Provider [phone] Dr. Katalina Velazquez Primary Care Provider [phone] Dr. Katalina Velazquez Attending Provider [phone] Dr. Katalina Velazquez MD Primary Care Provider Dr. Ta Smith MD Attending Provider [phone] Dr. Ta Smith MD Referring Provider [phone] Marcus MAZA, Dr. Darden Attending Provider [phone] Marcus MAZA, Dr. Darden Referring Provider King SHAUNNA, Dr. Avila Attending Provider Marcus MAZA, Dr. Darden Other Provider Chalo MAZA, Dr. Iverson Attending Provider Hiren Bernard Attending Provider King SHAUNNA, Dr. Avila Referring Provider Kimberley Mckenna Attending Provider Kimberley Mckenna Referring Provider Marcus MAZA, Dr. Darden Primary Care Provider Marcus MAZA, Dr. Darden Referring Provider [phone] Luis MAZA, Dr. Chappell Attending Provider Marcus MAZA, Dr. Darden Attending Provider King SHAUNNA, Dr. Avila Attending Provider Marcus MAZA, Dr. Darden Primary Care Provider Marcus MAZA, Dr. Darden Referring Provider Dr. Radha Elias DO Emergency Provider Eliecer MAZA, Dr. Banegas Attending Provider Eliecer MAZA, Dr. Banegas Admit Provider Eliecer MAZA, Dr. Banegas Other Provider Dr. Parveen Mosqueda DO Attending Provider Marcus MAZA, Dr. Darden Primary Care Provider Marcus MAZA, Dr. Darden Attending Provider Marcus MAZA, Dr. Darden Referring Provider Dr. Parveen Mosqueda DO Other Provider Panda MCKINNEY, Dr. Saini Referring Provider Cindy Whiteside Attending Provider Chalo MAZA, Dr. Iverson Attending Provider [phone] Marcus MAZA, Dr. Darden Primary Care Provider Marcus MAZA, Dr. Darden Referring Provider [phone] Marcus MAZA, Dr. Darden Attending Provider [phone] King SHAUNNA, Dr. Avila Attending Provider Hiren Bernard Attending Provider Hiren Bernard Referring Provider Raz MAC-C, Sun Attending Provider Marcus MAZA, Dr. Darden Primary Care Provider Kimberley Mckenna Attending Provider [phone] Kimberley Mckenna Referring Provider [phone] Marcus MAZA, Dr. Darden Referring Provider [phone] Raz MAC-C, Sun Referring Provider Oleghe, Efewongbe Primary Care Unavailable Sean Ribeiro Attending Unavailable Oleghe, Efewongbe Referring Unavailable Oleghe, Efewongbe Primary Care Unavailable Oleghe, Efewongbe Referring Unavailable Smith, Ta Attending Unavailable Oleghe, Efewongbe Primary Care Unavailable Kishor Isabel Attending Unavailable Oleghe, Efewongbe Primary Care Unavailable Oleghe, Efewongbe Attending Unavailable Oleghe, Efewongbe Referring Unavailable Oleghe, Efewongbe Primary Care Unavailable Smith, Ta Referring Unavailable Smith, Ta Attending Unavailable Oleghe, Efewongbe Primary Care Unavailable Oleghe, Efewongbe Referring Unavailable Hiren Bernard Attending Unavailable Austin Avina Referring Unavailable Austin Avina Attending Unavailable Oleghe, Efewongbe Primary Care Unavailable Oleghe, Efewongbe Primary Care Unavailable Oleghe, Efewongbe Referring Unavailable Oleghe, Efewongbe Attending Unavailable Oleghe, Efewongbe Primary Care Unavailable Oleghe, Efewongbe Attending Unavailable Oleghe, Efewongbe Referring Unavailable Oleghe, Efewongbe Primary Care Unavailable Hiren Benrard Attending Unavailable Hiren Bernard Referring Unavailable Austin Avina Attending Unavailable Fabrice, Austin Referring Unavailable Oleghe, Efewongbe Primary Care Unavailable Montague, Kimberley Attending Unavailable Montague, Kimberley Referring Unavailable Oleghe, Efewongbe Primary Care Unavailable Oleghe, Efewongbe Primary Care Unavailable Raz CERTIFIED FAMILY MEDIATOR, Sun Attending Unavailable Raz CERTIFIED FAMILY MEDIATOR, Sun Referring Unavailable Oleghe, Efewongbe Primary Care Unavailable Oleghe, Efewongbe Referring Unavailable Oleghe, Efewongbe Attending Unavailable Austin Avina Attending Unavailable Oleghe, Efewongbe Primary Care Unavailable Oleghe, Efewongbe Referring Unavailable Oleghe, Efewongbe Attending Unavailable Oleghe, Efewongbe Primary Care Unavailable Oleghe, Efewongbe Referring Unavailable Oleghe, Efewongbe Primary Care Unavailable MontagueKal maxison Attending Unavailable Oleghe, Efewongbe Referring Unavailable Austin Avina Attending Unavailable Oleghe, Efewongbe Primary Care Unavailable Oleghe, Efewongbe Referring Unavailable Oleghe, Efewongbe Attending Unavailable Oleghe, Efewongbe Referring Unavailable Oleghe, Efewongbe Primary Care Unavailable Oleghe, Efewongbe Attending Unavailable Oleghe, Efewongbe Primary Care Unavailable Ta Smith Attending Unavailable Oleghe, Efewongbe Referring Unavailable Oleghe, Efewongbe Primary Care Unavailable Montague, Kimberley Referring Unavailable Oleghe, Efewongbe Primary Care Unavailable Kimberley Montague Attending Unavailable Austin Avina Attending Unavailable Oleghe, Efewongbe Primary Care Unavailable Fabrice, Austin Referring Unavailable Montague, Kimberley Attending Unavailable Montague, Kimberley Referring Unavailable Oleghe, Efewongbe Primary Care Unavailable Makenzie Gonzáles Consulting Unavailable Oleghe, Efewongbe Primary Care Unavailable Parveen Mosqueda Attending Unavailable Makenzie Gonzáles Admitting Unavailable Oleghe, Efewongbe Primary Care Unavailable Parveen Mosqueda Referring Unavailable Parveen Mosqueda Attending Unavailable Oleghe, Efewongbe Consulting Unavailable Kishor Isabel Attending Unavailable Oleghe, Efewongbe Referring Unavailable Oleghe, Efewongbe Primary Care Unavailable Oleghe, Efewongbe Primary Care Unavailable Oleghe, Efewongbe Attending Unavailable Oleghe, Efewongbe Referring Unavailable Makenzie Gonzáles Attending Unavailable Oleghe, Efewongbe Primary Care Unavailable Makenzie Gonzáles Admitting Unavailable Makenzie Gonzáles Consulting Unavailable Oleghe, Efewongbe Primary Care Unavailable Parveen Mosqueda Attending Unavailable Panda Parveen Consulting Unavailable Oleghe, Efewongbe Primary Care Unavailable Cindy Arzola Attending Unavailable Oleghe, Efewongbe Referring Unavailable Oleghe, Efewongbe Primary Care Unavailable Kishor Isabel Attending Unavailable Oleghe, Efewongbe Primary Care Unavailable Oleghe, Efewongbe Attending Unavailable Oleghe, Efewongbe Referring Unavailable Austin Avina Attending Unavailable Oleghe, Efewongbe Primary Care Unavailable Oleghe, Efewongbe Referring Unavailable Oleghe, Efewongbe Primary Care Unavailable Oleghe, Efewongbe Referring Unavailable Hiren Bernard Attending Unavailable Oleghe, Efewongbe Primary Care Unavailable Raz CERTIFIED FAMILY MEDIATOR, Sun Attending Unavailable Raz CERTIFIED FAMILY MEDIATOR, Sun Referring Unavailable Oleghe, Efewongbe Primary Care Unavailable Oleghe, Efewongbe Attending Unavailable Oleghe, Efewongbe Referring Unavailable Oleghe Dr. Katalina MAZA Primary Care Provider Raz CERTIFIED FAMILY MEDIATOR-C Sun Referring Provider [phone] Dr. Dain Waller MD Emergency Provider Allergies Allergy Classification Reported Allergen(s) Allergy Type Date of Onset Reaction(s) Facility (20 sources) Codeine; Translations: [codeine] Drug Allergy 2 Rash [facility] (1 source) Ibandronate; Translations: [ibandronate] Drug Allergy Gastritis (disorder) [facility] (20 sources) Ibandronate Drug Allergy 2 EXTREME GERD [facility] (20 sources) plasic tape; Translations: [plasic tape] Allergy to substance 3 [facility] (1 source) Codeine Drug Allergy 5 [facility] (1 source) Ibadronate Drug Allergy [facility] Medications Current Medications Medication Drug Class(es) Dates Sig (Normalized) Sig (Original) Acetaminophen / oxyCODONE (20 sources) Opioid Agonist Start: 05-12-2025 take 1 tablet by mouth every eight hours as needed for pain Oxycodone-Acetami nophen 5-300 mg tablet Active 1 {tbl} PO Q8H as needed for pain 10 3 0 May 12, 2025 Toothache Other specified disorders of teeth and supporting structures Start: 07-25-2019 End: 07-28-2019 Oxycodone-Acetaminophen 1 TA BLET tablet Discontinued 1 {tbl} PO EVERY 6 HOURS NEEDED as needed for Pain 12 3 0 July 25, 2019 July 27, 2019 1:00am July 28, 2019 1:09am Muscle strain of chest wall Strain of muscle and tendon of front wall of thorax, initial encounter Start: 07-25-2019 End: 07-28-2019 take 1 tablet by mouth every six hours as needed Oxycodone-Acetaminophen Discontinued 1 TABLET PO EVERY 6 HOURS NEEDED 12 3 July 25, 2019 July 28, 2019 1:09am amoxicillin 500 mg oral capsule (20 sources) Penicillin-class Antibacterial Start: 05-12-2025 take 1 capsule by mouth three times daily Amoxicillin 500 mg capsule Active 500 mg PO THREE TIMES A DAY May 12, 2025 12:00am dental pain Start: 09-19-2024 End: 11-13-2024 take 1 tablet by mouth three times daily Amoxicillin 500 mg tablet Discontinued 500 mg PO THREE TIMES A DAY 30 0 September 19, 2024 1:00am November 13, 2024 11:14am Start: 02-28-2024 End: 03-17-2024 take 1 tablet by mouth three times daily Amoxicillin 500 mg tablet Discontinued 500 mg PO THREE TIMES A DAY 30 0 February 28, 2024 12:00am March 17, 2024 8:53am aspirin 325 mg oral tablet (8 sources) Platelet Aggregation Inhibitor, Nonsteroidal Anti-inflammatory Drug Start: 12-04-2021 take 325 mg by mouth once daily Aspirin Active 325 MG PO DAILY December 04, 2021 12:00am Start: 06-13-2019 Ecotrin 325 mg oral delayed release tablet Dose : 325 mg = 1 tab(s), Oral, qDay, 0 Refill(s) Start Date: 06/13/19 Status: Ordered 24 hr buPROPion hydrochloride 150 mg extended release oral tablet (20 sources) Aminoketone Start: 09-16-2023 End: 04-26-2025 take 1 tablet by mouth once daily Bupropion Hcl 150 mg tablet extended release 24 hr Active 150 mg PO DAILY 90 April 26, 2025 7:58am Start: 09-16-2023 End: 09-16-2023 take 1 tablet by mouth every twenty-four hours Bupropion Hcl 150 mg tablet extended release 24 hr Discontinued mg PO September 16, 2023 1:00am September 16, 2023 7:42pm Start: 09-16-2023 End: 09-16-2023 Bupropion Hcl Discontinued M G PO September 16, 2023 1:00am September 16, 2023 7:42pm Start: 06-10-2023 End: 07-30-2023 take 1 tablet by mouth once daily in the morning Bupropion Hcl (Wellbutrin Xl) 150 mg tablet extended release 24 hr Discontinued 150 mg PO EVERY MORNING 60 June 10, 2023 12:00am July 30, 2023 10:47am Calcium (1 source) Phosphate Binder, Calcium Start: 07-19-2019 calcium (as carbonate) 600 mg oral tablet Dose : 600 mg = 1 tab(s), Oral, BID, 0 Refill(s) Start Date: 07/19/19 Status: Ordered calcium carbonate 1500 mg oral tablet (20 sources) Start: 07-07-2019 take 2 tablets by mouth once daily Calcium Carbonate 600 MG tablet Active 1200 mg PO DAILY July 07, 2019 12:00am Start: 07-07-2019 take 1200 mg by mouth once jamilah ly Calcium Carbonate Active 1200 MG PO DAILY July 07, 2019 12:00am cholecalciferol 0.025 mg oral capsule (20 sources) Vitamin D Start: 07-30-2023 take 1 capsule by mouth once daily Cholecalciferol (Vitamin D3) 25 mcg (1,000 unit) capsule Active 25 ug PO DAILY July 30, 2023 1:00am Start: 06-10-2023 End: 07-30-2023 take 1 tablet by mouth once daily Cholecalciferol (Vitamin D3) 75 mcg (3,000 unit) tablet Discontinued 25 ug PO DAILY June 10, 2023 3:54pm July 30, 2023 10:46am Start: 05-06-2023 End: 06-10-2023 take 1 tablet by mouth once daily Cholecalciferol (Vitamin D3) 75 mcg (3,000 unit) tablet Discontinued 75 ug PO DAILY May 06, 2023 12:00am June 10, 2023 3:55pm Start: 07-07-2019 End: 12-19-2021 take 1 tablet by mouth once daily Cholecalciferol (Vitamin D3) 1,000 UNIT tablet Discontinued 1000 U PO DAILY July 07, 2019 12:00am December 19, 2021 2:08pm supplement cholestyramine resin 4000 mg powder for oral suspension (20 sources) Bile Acid Sequestrant Start: 03-10-2023 End: 01-04-2025 Cholestyramine (With Sugar) 4 gram powder in packet Active 4 g PO AT BEDTIME as needed for diarrhea January 04, 2025 12:00am Comp.Stocking,Thigh ,Long,Small (4 sources) Start: 12-16-2023 Comp.Stocking,Thig h,Long,Small Active 0 .Route 2 December 16, 2023 12:00am 20 - 30 mmHg Cyclosporine (Restasis) 0.05 % dropperette (9 sources) Start: 01-04-2025 Cyclosporine (Restasis) 0.05 % dropperette Active 1 NMA OPHTHALMIC Q12H January 04, 2025 12:00am 1 ml denosumab 60 mg/ml prefilled syringe (9 sources) RANK Ligand Inhibitor Start: 07-28-2024 Denosumab 60 mg/mL syringe Active 60 mg SC every 6 months 1 July 28, 2024 1:00am Denosumab 60 mg/mL syringe (5 sources) Start: 07-28-2024 Denosumab 60 mg/mL syringe Active 60 mg SC every 6 months July 28, 2024 1:00am dicyclomine hydrochloride 20 mg oral tablet (20 sources) Anticholinergic Start: 07-25-2023 take 1 tablet by mouth twice daily as needed for pain Dicyclomine 20 mg tablet Active 20 mg PO TWICE A DAY as needed for abdominal pain 14 7 0 July 25, 2023 6:12pm DULoxetine 30 mg delayed release oral capsule (20 sources) Serotonin and Norepinephrine Reuptake Inhibitor Start: 01-04-2025 End: 04-26-2025 take 1 capsule by mouth once daily in the morning, then take 2 capsules by mouth once daily at bedtime Duloxetine 30 mg capsule,delayed release(DR/EC) Active 30 mg PO DAILY 270 1 April 26, 2025 7:57am TAKE 1 CAP IN AM, 2 CAPS QHS Start: 07-05-2024 End: 01-04-2025 take 1 capsule by mouth three times daily Duloxetine 30 mg capsule,delayed release(DR/EC) Discontinued 30 mg PO THREE TIMES A DAY 270 90 1 October 04, 2024 4:24pm January 04, 2025 11:01am Start: 07-07-2019 End: 06-12-2024 take 1 capsule by mouth three times daily Duloxetine 30 mg capsule,delayed release(DR/EC) Discontinued 30 mg PO THREE TIMES A DAY 90 2 April 04, 2024 2:51pm June 12, 2024 10:19am gabapentin 100 mg oral capsule (14 sources) Anti-epileptic Agent Start: 07-13-2024 take 1 capsule by mouth three times daily as needed for pain Gabapentin 100 mg capsule Active 100 mg PO THREE TIMES A DAY as needed for NERVE PAIN July 13, 2024 12:00am L. Acidophilus-L. Rhamnosus (20 sources) Start: 09-09-2019 L. Acidophilus-L. Rhamnosus Active 1 EACH PO DAILY September 09, 2019 7:47pm Start: 09-09-2019 L. Acidophilus -L. Rhamnosus Active 1 EACH PO DAILY September 09, 2019 12:00am Start: 09-09-2019 L. Acidophilus -L. Rhamnosus Active 1 EACH PO DAILY September 09, 2019 1:00am L. Acidophilus-L. Rhamnosus 1 EACH capsule (14 sources) Start: 09-09-2019 take 1 capsule by mouth once daily L. Acidophilus-L. Rhamnosus 1 EACH capsule Active 1 NMA PO DAILY September 09, 2019 1:00am Multivitamin preparation (1 source) Start: 06-13-2019 take 1 tablet by mouth once daily Multivitamin Dose = 1 tab(s), Oral, Daily, 0 Refill(s) Start Date: 06/13/19 Status: Ordered predniSONE 20 mg oral tablet (3 sources) Start: 09-07-2022 take 20 mg by mouth once daily Prednisone Active 20 MG PO DAILY May 20, 2022 12:00am Probiotic (1 source) Start: 12-27-2019 Probiotic Daily, 0 Refill(s) Start Date: 12/27/19 Status: Ordered sucralfate 1000 mg oral tablet (1 source) Aluminum Complex Start: 01-04-2023 take 1 tablet by mouth twice daily Sucralfate (Carafate) 1 gram tablet Active 1 GM PO TWICE A DAY 60 January 04, 2023 12:00am Vitamin D3 (1 source) Start: 07-19-2019 Vitamin D3 Vitamin D3, pt not sure of strength, 0 Refill(s) Start Date: 07/19/19 Status: Ordered vitamin e 180 mg oral capsule (20 sources) Start: 01-04-2025 take 1 capsule by mouth once daily Vitamin E 268 mg (400 unit) capsule Active 268 mg PO DAILY January 04, 2025 12:00am Start: 07-30-2023 End: 01-04-2025 take 2 capsules by mouth once daily Vitamin E 200 unit capsule Discontinued 400 U PO DAILY July 30, 2023 10:46am January 04, 2025 11:12am Start: 07-30-2023 take 400 [IU] by javier once daily Vitamin E Active 400 UNIT PO DAILY July 30, 2023 10:46am Start: 12-19-2021 End: 07-30-2023 take 1 capsule by mouth once daily Vitamin E 200 unit capsule Discontinued 200 U PO DAILY December 19, 2021 12:00am July 30, 2023 10:47am Vitamins A,C,Y-Qiiw-Nmtovg (Preservision Areds) 14,320-226-200 lark-vg-cknd capsule (20 sources) Start: 12-19-2021 take 1 capsule by mouth twice daily Vitamins A,C,T-Wqmz-Avmaph (Preservision Areds) 14,320-226-200 zuex-bs-cgxf capsule Active 1 CAP PO TWICE A DAY December 19, 2021 1:58pm Start: 12-19-2021 Vitamins A,C,E -Zinc-Copper (Preservision Areds) 14,320-226-200 jxcw-km-shgf capsule Active 1 NMA PO TWICE A DAY December 19, 2021 12:00am Start: 12-19-2021 take 1 capsule by mo uth twice daily Vitamins A,C,E-Ygfa-[place] (Preservision Areds) 14,320-226-200 skjx-qr-araw capsule Active 1 CAP PO TWICE A DAY December 18, 2021 11:00pm Start: 12-19-2021 take 1 capsule by [facility] twice daily Vitamins A,C,R-Jzlu-Llhrnd (Preservision Areds) 14,320-226-200 gcgm-dk-qjcl capsule Active 1 CAP PO TWICE A DAY December 19, 2021 12:00am Completed/Discontinued Medications Medication Drug Class(es) Dates Sig (Normalized) Sig (Original) acetaminophen 325 mg / HYDROcodone bitartrate 5 mg oral tablet (20 sources) Opioid Agonist Start: 07-25-2019 End: 07-28-2019 Hydrocodone-Acetami nophen 1 TABLET tablet Discontinued 1 {tbl} PO EVERY 4 HOURS NEEDED as needed for Pain 15 2 0 July 25, 2019 July 26, 2019 1:00am July 28, 2019 1:09am Muscle strain of chest wall Strain of muscle and tendon of front wall of thorax, initial encounter Start: 07-25-2019 End: 07-28-2019 take 1 tablet by mouth every four hours as needed Hydrocodone-Acetaminophen Discontinued 1 TABLET PO EVERY 4 HOURS NEEDED 15 2 July 25, 2019 July 28, 2019 1:09am alendronic acid 70 mg oral tablet (20 sources) Bisphosphonate Start: 07-07-2019 End: 09-03-2023 take 1 tablet by mouth every week Alendronate 70 mg tablet Discontinued 70 mg PO EVERY WEEK December 19, 2021 1:57pm September 03, 2023 1:31pm amoxicillin 875 mg / clavulanate 125 mg oral tablet (20 sources) Penicillin-class Antibacterial Start: 04-19-2023 End: 05-06-2023 Amoxicillin-Pot Clavulanate 875-125 mg tablet Discontinued 1 {tbl} PO TWICE A DAY 10 0 April 19, 2023 12:00am May 06, 2023 8:35am Start: 04-19-2023 End: 05-06-2023 take 1 tablet by mouth twice daily Amoxicillin-Pot Clavulanate Discontinued 1 TABLET PO TWICE A DAY 10 April 19, 2023 12:00am May 06, 2023 8:35am amylase [id number] unt / lipase 40139 unt / protease [id number] unt delayed release oral capsule (20 sources) Start: 08-12-2022 End: 10-25-2024 take [id number] capsules by mouth three times daily at mealtime Tuledn-Qatupkea-Rftfvkg (Creon) 36,000-114,000- 180,000 unit capsule,delayed release(DR/EC) Discontinued 1 NMA PO THREE TIMES A DAY 320 March 24, 2024 11:28am October 25, 2024 3:45pm administer with meals and/or snacks Start: 02-20-2022 End: 08-12-2022 Fyxfhl-Vctchbcs-Sessovs (Cre on) 3,000-9,500- 15,000 unit capsule,delayed release(DR/EC) Discontinued 3 NMA PO THREE TIMES A DAY 275 2 February 20, 2022 4:48pm August 12, 2022 3:02pm take two caps with meals and one with snacks Start: 02-19-2022 End: 02-20-2022 take 1 capsule by mouth every twenty-four hours Mghcln-Wnnsewfa-Pslmwhj (Creon) 3,000-9,500- 15,000 unit capsule,delayed release(DR/EC) Discontinued 10.962 NMA PO THREE TIMES A DAY 90 0 February 19, 2022 12:00am February 20, 2022 4:49pm do not exceed 10,000 unit/kg lipase per 24 hrs atropine sulfate 0.025 mg / diphenoxylate hydrochloride 2.5 mg oral tablet (20 sources) Anticholinergic, Cholinergic Muscarinic Antagonist, Antidiarrheal Start: 02-26-2023 End: 05-06-2023 Diphenoxylate-Atropine (Lomotil) 2.5-0.025 mg tablet Discontinued 1 {tbl} PO THREE TIMES A DAY as needed for diarrhea 60 1 February 26, 2023 12:00am May 06, 2023 8:36am azithromycin 250 mg oral tablet (20 sources) Macrolide Antimicrobial Start: 11-22-2023 End: 12-16-2023 Azithromycin 250 mg tablet Discontinued 250 mg PO daily 6 0 November 22, 2023 12:00am December 16, 2023 2:19pm 2 tablets today, then 1 tablet daily on days 2 through 5 Start: 05-05-2022 End: 05-20-2022 take 2-5 tablets by mouth once daily Azithromycin 250 mg tablet Discontinued 0 PO .COMPLEX 6 0 May 05, 2022 12:00am May 20, 2022 2:39pm take 500 mg today (day 1), then 250 mg for 4 days (days 2-5) PO Start: 05-05-2022 End: 05-20-2022 Azithromycin Discontinued 0 PO .COMPLEX 6 May 05, 2022 12:00am May 20, 2022 2:39pm take 500 mg today (day 1), then 250 mg for 4 days (days 2-5) PO benzonatate 200 mg oral capsule (20 sources) Non-narcotic Antitussive Start: 11-22-2023 End: 12-16-2023 take 1 capsule by mouth three times daily as needed for cough Benzonatate 200 mg capsule Discontinued 200 mg PO THREE TIMES A DAY as needed for cough 20 0 November 22, 2023 12:00am December 16, 2023 2:19pm Start: 05-05-2022 End: 05-20-2022 take 2 capsules by mouth three times daily as needed for cough Benzonatate 100 mg capsule Discontinued 200 mg PO THREE TIMES A DAY as needed for cough 30 0 May 05, 2022 12:00am May 20, 2022 2:39pm Start: 05-05-2022 End: 05-20-2022 take 200 mg by mouth three times daily Benzonatate Discontinued 200 MG PO THREE TIMES A DAY May 05, 2022 12:00am May 20, 2022 2:39pm busPIRone hydrochloride 15 mg oral tablet (20 sources) Start: 12-04-2021 End: 12-19-2021 take 1 tablet by mouth twice daily Buspirone 15 mg tablet Discontinued 15 mg PO TWICE A DAY December 04, 2021 12:00am December 19, 2021 2:08pm Start: 04-04-2021 busPIRone 15 m g oral tablet Dose : 15 mg = 1 tab(s), Oral, BID, PRN Anxiety, Start with one third tab p.o. daily and increase dose as needed and as tolerated, # 60 tab(s), 1 Refill(s), Pharmacy: [id number], Panic disorder, 167.5, cm, 04/04/21 11:09:00 EDT, Height, kg,... Start Date: 04/04/21 Status: Ordered calcium polycarbophil 625 mg oral tablet (14 sources) Start: 06-12-2024 End: 11-13-2024 take 1 mg by mouth once daily Calcium Polycarbophil (Fiber Therapy (Ca Polycarboph)) 625 mg tablet Discontinued mg PO DAILY June 12, 2024 12:00am November 13, 2024 11:14am to aid EPI Comp.Stocking,Thigh,Long, Small misc (14 sources) Start: 12-16-2023 End: 01-04-2025 Comp.Stocking,Thigh,Long ,Small misc Discontinued 0 .Route 2 2 December 16, 2023 12:00am January 04, 2025 6:34pm Varicose veins of both lower extremities with pain Varicose veins of bilateral lower extremities with pain 20 - 30 mmHg Start: 12-16-2023 End: 01-04-2025 Comp.Stocking,Thigh,Long,Sma ll misc Discontinued 0 .Route 2 December 16, 2023 12:00am January 04, 2025 6:34pm 20 - 30 mmHg Start: 12-16-2023 Comp.Stocking, Thigh,Long,Small misc Active 0 .Route 2 December 16, 2023 12:00am 20 - 30 mmHg doxycycline hyclate 100 mg oral capsule (20 sources) Tetracycline-class Drug Start: 03-02-2023 End: 05-06-2023 take 1 capsule by mouth twice daily Doxycycline Hyclate 100 mg capsule Discontinued 100 mg PO TWICE A DAY 60 0 March 02, 2023 12:00am May 06, 2023 8:36am fluticasone (19 sources) Corticosteroid Start: 05-20-2022 End: 06-03-2022 take 1 puff(s) by inhalation every twelve hours Fluticasone Propionate Discontinued 1 PUFF INHALATION Q12H 12 May 20, 2022 12:00am June 03, 2022 12:03am Start: 05-20-2022 End: 06-03-2022 take 1 puff(s) by inhalation every twelve hours Fluticasone Propionate Discontinued 1 PUFF INHALATION Q12H 12 May 19, 2022 11:00pm June 02, 2022 11:03pm Fluticasone Propionate 220 mcg/actuation HFA aerosol inhaler (14 sources) Start: 05-20-2022 End: 06-03-2022 Fluticasone Propionate 220 mcg/actuation HFA aerosol inhaler Discontinued 1 NMA INHALATION Q12H 12 14 0 May 20, 2022 12:00am June 02, 2022 12:00am June 03, 2022 12:03am Start: 05-20-2022 End: 06-03-2022 Fluticasone Propionate 220 m cg/actuation HFA aerosol inhaler Discontinued 1 NMA INHALATION Q12H 12 14 May 20, 2022 12:00am June 02, 2022 12:00am June 03, 2022 12:03am hydrOXYzine hydrochloride 25 mg oral tablet (16 sources) Antihistamine Start: 06-12-2024 End: 04-26-2025 take 1 tablet by mouth twice daily as needed for anxiety Hydroxyzine Hcl 25 mg tablet Discontinued 25 mg PO TWICE A DAY as needed for anxiety 60 1 April 26, 2025 7:58am April 26, 2025 7:59am levoFLOXacin 500 mg oral tablet (19 sources) Quinolone Antimicrobial Start: 11-29-2023 End: 12-16-2023 take 1 tablet by mouth once daily Levofloxacin 500 mg tablet Discontinued 500 mg PO DAILY 7 0 November 29, 2023 12:00am December 16, 2023 2:19pm loperamide hydrochloride 2 mg oral tablet (20 sources) Opioid Agonist Start: 12-19-2021 End: 12-19-2021 take 1 tablet by mouth twice daily Loperamide (Imodium A-D) 2 mg tablet Discontinued 2 mg PO TWICE A DAY December 19, 2021 12:00am December 19, 2021 2:08pm Start: 07-07-2019 End: 07-11-2019 take 2 capsules by mouth once daily Loperamide 2 MG capsule Discontinued 4 mg PO DAILY July 07, 2019 12:00am July 11, 2019 10:34am Start: 07-07-2019 End: 07-11-2019 take 4 mg by mouth once daily Loperamide Discontinued 4 MG PO DAILY July 07, 2019 12:00am July 11, 2019 10:34am Start: 06-13-2019 take 1 tablet by javier once, then take 1 tablet by mouth twice daily Imodium A-D 2 mg oral tablet Dose : 2 mg = 1 tab(s), Oral, BID, # 180 tab(s), 3 Refill(s), Pharmacy: [id number], IBS (irritable bowel syndrome) Start Date: 06/13/19 Status: Ordered LORazepam 0.5 mg oral tablet (20 sources) Benzodiazepine Start: 07-07-2019 End: 12-19-2021 take 1 tablet by mouth once daily as needed for anxiety Lorazepam 0.5 MG tablet Discontinued 0.5 mg PO DAILY as needed for Anxiety July 07, 2019 12:00am December 19, 2021 2:08pm meloxicam 7.5 mg oral tablet (14 sources) Nonsteroidal Anti-inflammatory Drug Start: 07-13-2024 End: 01-04-2025 take 1 tablet by mouth once daily Meloxicam 7.5 mg tablet Discontinued 7.5 mg PO daily July 13, 2024 12:00am January 04, 2025 10:59am Multivitamin With Minerals (20 sources) Start: 07-07-2019 End: 12-19-2021 take 1 tablet by mouth once daily Multivitamin With Minerals Discontinued 1 TABLET PO DAILY July 07, 2019 3:45pm December 19, 2021 2:08pm Start: 07-07-2019 End: 12-19-2021 take 1 tablet by mouth once daily Multivitamin With Minerals Discontinued 1 TABLET PO DAILY July 06, 2019 11:00pm December 19, 2021 1:08pm Start: 07-07-2019 End: 12-19-2021 take 1 tablet by mouth once daily Multivitamin With Minerals Discontinued 1 TABLET PO DAILY July 07, 2019 12:00am December 19, 2021 2:08pm Multivitamin With Minerals 1 EACH tablet (14 sources) Start: 07-07-2019 End: 12-19-2021 take 1 tablet by mouth once daily Multivitamin With Minerals 1 EACH tablet Discontinued 1 {tbl} PO DAILY July 07, 2019 12:00am December 19, 2021 2:08pm supplement Start: 07-07-2019 End: 12-19-2021 take 1 tablet by mouth once daily Multivitamin With Minerals 1 EACH tablet Discontinued 1 {tbl} PO DAILY July 07, 2019 12:00am December 19, 2021 2:08pm nitrofurantoin, macrocrystals 25 mg / nitrofurantoin, monohydrate 75 mg oral capsule (5 sources) Nitrofuran Antibacterial Start: 03-28-2025 End: 04-02-2025 take 1 capsule by mouth every twelve hours at mealtime Nitrofurantoin Monohyd/M-Cryst (Macrobid) 100 mg capsule Discontinued 100 mg PO Q12H 10 5 0 March 28, 2025 12:00am April 01, 2025 12:00am April 02, 2025 12:09am must administer with a meal/food omeprazole 20 mg delayed release oral capsule (20 sources) Proton Pump Inhibitor Start: 12-04-2021 End: 12-19-2021 take 1 capsule by mouth once daily Omeprazole 20 mg capsule,delayed release(DR/EC) Discontinued 20 mg PO DAILY December 04, 2021 12:00am December 19, 2021 2:08pm Start: 10-03-2021 omeprazole 20 mg oral delayed release capsule Dose : 20 mg = 1 cap(s), Oral, qDay, # 90 cap(s), 1 Refill(s), Pharmacy: [id number], GERD without esophagitis, 166, cm, 10/03/21 11:01:00 EST, Height, kg, 10/03/21 11:01:00 EST, Dosing Weight Start Date: 10/03/21 Status: Ordered pantoprazole 20 mg delayed release oral tablet (20 sources) Proton Pump Inhibitor Start: 06-14-2023 End: 2023 take 1 tablet by mouth once daily Pantoprazole 20 mg tablet,delayed release (DR/EC) Discontinued 20 mg PO DAILY 30 30 0 June 14, 2023 2:01pm July 13, 2023 12:00am 2023 12:05am Start: 01-04-2023 take 20 mg by mouth once daily Pantoprazole Active 20 MG PO DAILY January 04, 2023 12:00am Romosozumab-Aqqg (20 sources) Start: 07-30-2023 End: 07-28-2024 Romosozumab-Aqqg (Evenity) 2 10mg/2.34mL ( 105mg/1.17mLx2) syringe Discontinued 210 mg SC EVERY MONTH 2.34 360 July 30, 2023 1:00am July 28, 2024 11:56am Start: 07-30-2023 End: 07-28-2024 Romosozumab-Aqqg (Evenity) 2 10mg/2.34mL ( 105mg/1.17mLx2) syringe Discontinued 210 mg SC EVERY MONTH 2.34 360 July 30, 2023 1:00am July 28, 2024 11:56am Start: 07-30-2023 Romosozumab-Aq qg (Evenity) 210mg/2.34mL ( 105mg/1.17mLx2) syringe Active 210 MG SC EVERY MONTH 2.34 360 July 30, 2023 1:00am Start: 07-30-2023 Romosozumab-Aq qg (Evenity) 210mg/2.34mL ( 105mg/1.17mLx2) syringe Active 210 MG SC EVERY MONTH 2.34 360 July 30, 2023 12:00am tobramycin 3 mg/ml ophthalmic solution (14 sources) Aminoglycoside Antibacterial Start: 02-28-2024 End: 01-04-2025 Tobramycin 0.3 % drops Discontinued 1 NMA OPHTHALMIC Q2H 5 0 February 28, 2024 12:00am January 04, 2025 11:00am to affected eye while awake first 24 hours, then 3x/day on days 2-5 venlafaxine 37.5 mg oral tablet (14 sources) Serotonin and Norepinephrine Reuptake Inhibitor Start: 06-12-2024 End: 07-05-2024 take 1 tablet by mouth twice daily Venlafaxine 37.5 mg tablet Discontinued 37.5 mg PO TWICE A DAY 60 1 June 12, 2024 12:00am July 05, 2024 11:56am Problems Active Problems Problem Classification Problem Date Documented Da te Episodic/Chronic Abdominal hernia (1 source) Umbilical hernia 07-19-2019 Episodic Abdominal pain (20 sources) Abdominal pain; Translations: [Unspecified abdominal pain] Episodic Acute bronchitis (20 sources) Acute bronchitis; Translations: [Acute bronchitis, unspecified] 05-05-2022 Episodic Allergic reactions (20 sources) Allergic condition; Translations: [Allergy, unspecified, initial encounter] 06-10-2023 Episodic Anxiety disorders (20 sources) Panic disorder; Translations: [Mixed anxiety and depressive disorder] Onset: 06-13-2019 Chronic Coronary atherosclerosis and other heart disease (15 sources) Calcification of coronary artery; Translations: [Coronary arteriosclerosis] 07-19-2019 Chronic Deficiency and other anemia (1 source) Normocytic anemia 07-19-2019 Episodic Disorders of teeth and jaw (2 sources) Arthralgia of temporomandibular joint; Translations: [Toothache] 02-16-2020 Episodic Diverticulosis and diverticulitis (1 source) Diverticulosis of large intestine 07-19-2019 Chronic Esophageal disorders (20 sources) Gastroesophageal reflux disease without esophagitis; Translations: [Gastroesophageal reflux disease] Onset: 4 06-13-2019 Chronic Fluid and electrolyte disorders (20 sources) Dehydration; Translations: [Dehydration] Onset: 5 07-11-2019 Episodic Genitourinary symptoms and ill-defined conditions (2 sources) Unspecified abnormal findings in urine; Translations: [Dysuria] Onset: 5 Episodic Immunizations and screening for infectious disease (20 sources) Antineutrophil cytoplasmic antibody positive; Translations: [Other specified abnormal immunological findings in serum] Onset: 4 08-27-2022 Episodic Intestinal infection (20 sources) Clostridium difficile colitis; Translations: [Enterocolitis due to Clostridium difficile, not specified as recurrent] 07-11-2019 Episodic Lymphadenitis (18 sources) Retroperitoneal lymphadenopathy ; Translations: [Submandibular lymphadenopathy] 07-26-2019 Episodic Malaise and fatigue (20 sources) Asthenia; Translations: [Weakness] 07-11-2019 Episodic Mood disorders (1 source) Depressive disorder 12-27-2019 Chronic Mood disorders (1 source) Mood disorders; Translations: [Depression, unspecified] Onset: 5 Nonspecific chest pain (20 sources) Atypical chest pain; Translations: [Chest pain] 09-22-2021 Episodic Nutritional deficiencies (1 source) Vitamin D deficiency, unspecified; Translations: [Vitamin D deficiency, unspecified] Onset: 4 Chronic Occlusion or stenosis of precerebral arteries (1 source) Occlusion and stenosis of left carotid artery; Translations: [Occlusion and stenosis of left carotid artery] Onset: 4 Chronic Osteoporosis (20 sources) Osteoporosis; Translations: [Age-related osteoporosis without current pathological fracture] Onset: 5 03-31-2019 Chronic Other acquired deformities (19 sources) Spondylolisthesis; Translations: [Spondylolisthesis, cervical region] 07-13-2024 Episodic Other acquired deformities (8 sources) Spondylolisthesis L5/S1 level; Translations: [Spondylolisthesis, lumbosacral region] 01-19-2025 Episodic Other bone disease and musculoskeletal deformities (11 sources) Osteopenia; Translations: [Other specified disorders of bone density and structure, unspecified site] 06-10-2023 Episodic Other circulatory disease (1 source) Abnormality of abdominal aorta 07-19-2019 Chronic Other connective tissue disease (1 source) Primary fibromyalgia syndrome 06-13-2019 Episodic Other connective tissue disease (20 sources) Fibromyalgia; Translations: [Fibromyalgia] 07-07-2019 Episodic Other connective tissue disease (14 sources) H/O: back problem; Translations: [Personal history of other diseases of the musculoskeletal system and connective tissue] 06-10-2023 Episodic Other diseases of bladder and urethra (1 source) Mass of urinary bladder 07-31-2019 Chronic Other diseases of kidney and ureters (1 source) Hydronephrosis 07-26-2019 Episodic Other gastrointestinal disorders (1 source) Irritable bowel syndrome 06-13-2019 Chronic Other gastrointestinal disorders (20 sources) Diarrhea; Translations: [Diarrhea, unspecified] 05-20-2022 Episodic Other gastrointestinal disorders (5 sources) Diarrhea, unspecified; Translations: [Diarrhea] Episodic Other gastrointestinal disorders (20 sources) History of irritable bowel syndrome; Translations: [Personal history of other diseases of the digestive system] 02-09-2023 Episodic Other gastrointestinal disorders (20 sources) Acute diarrhea; Translations: [Diarrhea, unspecified] 07-25-2023 Episodic Other infections; including parasitic (20 sources) History of bacterial infection; Translations: [Personal history of other infectious and parasitic diseases] 09-10-2019 Episodic Other liver diseases (20 sources) Elevated liver enzymes level; Translations: [Abnormal levels of other serum enzymes] 07-27-2019 Episodic Other liver diseases (9 sources) Ischemic hepatitis; Translations: [Acute and subacute hepatic failure without coma] 01-05-2025 Episodic Other nervous system disorders (14 sources) Ulnar neuropathy; Translations: [Lesion of ulnar nerve, right upper limb] 06-12-2024 Chronic Other nervous system disorders (14 sources) Cervical myelopathy; Translations: [Disease of spinal cord, unspecified] 07-13-2024 Chronic Other nervous system disorders (1 source) Disease of spinal cord, unspecified; Translations: [Disease of spinal cord, unspecified] Onset: 5 Chronic Other nervous system disorders (1 source) Other chronic pain; Translations: [Other chronic pain] Onset: 4 Chronic Other nervous system disorders (20 sources) H/O: cataract; Translations: [Personal history of other diseases of the nervous system and sense organs] 06-10-2023 Episodic Other non-traumatic joint disorders (1 source) Knee pain 06-28-2020 Episodic Other non-traumatic joint disorders (20 sources) Pain in left knee; Translations: [Left knee pain] 12-16-2023 Episodic Other screening for suspected conditions (not mental disorders or infectious disease) (20 sources) Patient encounter status; Translations: [Encounter for screening for cardiovascular disorders] Onset: 5 08-14-2024 Episodic Other skin disorders (1 source) Epidermoid cyst 10-03-2021 Episodic Other skin disorders (20 sources) Finding of neck region; Translations: [Localized swelling, mass and lump, neck] 11-13-2024 Episodic Pancreatic disorders (not diabetes) (20 sources) Exocrine pancreatic insufficiency; Translations: [Exocrine pancreatic insufficiency] Onset: 4 08-12-2022 Episodic Peripheral and visceral atherosclerosis (2 sources) Atherosclerosis of aorta; Translations: [Atherosclerosis of aorta] Onset: 5 Chronic Residual codes; unclassified (20 sources) History of headache; Translations: [Personal history of other specified conditions] 06-10-2023 Episodic Residual codes; unclassified (20 sources) At risk of disease; Translations: [Other specified personal risk factors, not elsewhere classified] 11-13-2024 Episodic Screening and history of mental health and substance abuse codes (20 sources) History of clinical finding in subject; Translations: [Personal history of other mental and behavioral disorders] Onset: 5 06-10-2023 Episodic Spondylosis; intervertebral disc disorders; other back problems (20 sources) Arthritis of lumbosacral spine; Translations: [Spondylosis without myelopathy or radiculopathy, lumbosacral region] 05-06-2023 Chronic Spondylosis; intervertebral disc disorders; other back problems (20 sources) Low back pain; Translations: [Chronic back pain ] Onset: 4 10-03-2021 Episodic Superficial injury; contusion (20 sources) Blister of gum with infection; Translations: [Blister (nonthermal) of oral cavity, initial encounter] 09-19-2024 Episodic Thyroid disorders (20 sources) Thyroid nodule; Translations: [Nontoxic single thyroid nodule] Onset: 5 12-08-2024 Chronic Unclassified (11 sources) H/O: back problem; Translations: [History of back problems] 06-10-2023 Unclassified (8 sources) At next office visit Unclassified (1 source) Low back pain, unspecified; Translations: [Low back pain, unspecified] Onset: 5 Urinary tract infections (20 sources) Urinary tract infectious disease; Translations: [Urinary tract infection, site not specified] 09-10-2019 Episodic Varicose veins of lower extremity (20 sources) Varicose veins of lower extremity; Translations: [Varicose veins of bilateral lower extremities with pain] 12-16-2023 Episodic Past or Other Problems Problem Classification Problem Date Documented Da te Episodic/Chronic Other liver diseases (2 sources) Abnormal levels of other serum enzymes; Translations: [Abnormal levels of other serum enzymes] Onset: 01-09-2025 Episodic Other skin disorders (1 source) Localized swelling, mass and lump, neck; Translations: [Localized swelling, mass and lump, neck] Onset: 12-29-2024 Episodic Residual codes; unclassified (2 sources) Other specified personal risk factors, not elsewhere classified; Translations: [Other specified personal risk factors, not elsewhere classified] Onset: 08-14-2024 Episodic Results Test Name Value Interpretation Reference Range Facility Low Dose CT Lung Screeningon 04-03-[address] Lung Screening [facility] [address] [place] [id number] Lung Screening MR#: [id number] Acct: [id number] Name: ZEE RAMIREZ Rep #: [id number] : 1950 F 74 From: Walter Blair MD PCP: Dr. Katalina Velazquez MD Status: [facility] [place] CLI Study: Low Dose CT Lung Screening Date of Exam: 04/03 Exam# [id number] Ordering Dr: Sun Crandall NP CERTIFIED FAMILY MEDIATOR -Nathan PROCEDURE: LOW DOSE CT LUNG SCREENING 04/03/2025 REASON FOR EXAM: LUNG CANCER SCREENING TECHNIQUE: LOW DOSE CT LUNG SCREENING Coronal and Sagittal reconstruction series were provided. Lung windows only One or more dose reduction techniques were used (e.g., Automated exposure control, adjustment of the mA and/or kV according to patient size, use of iterative reconstruction technique). REFERENCE LINK: [facility] Lung-RADS RADIATION DOSE SUMMARY: DLP: 63 mGycm COMPARISON: September 14, 2024 FINDINGS: PULMONARY NODULES: (Only nodules >3mm are reported) Pulmonary Nodules: There is a 0.8 x 0.6 cm solid nodular density in the left lung base, image 172/227, new. There is a 0.5 cm nodular density in the left lingular segment, image 177/227, new. Hardware:None Lymph Nodes:None Heart and Vasculature:Atheroscleroti c calcifications are noted Lungs and Airways: There is no acute infiltrate or consolidation Pleura:There is no pneumothorax or effusion Upper Abdomen:Anatomic detail is limited Bones:There is no visible bony abnormality CT/Low Dose CT Lung Screening IMPRESSION: There is a 0.8 x 0.6 cm solid nodular density in the left lung base, image 172/227, new. There is a 0.5 cm nodular density in the left lingular segment, image 177/227, new. Coronary artery calcification (CAC) is present Lung-RADS Category: 4A: Probably suspicious: Three-month chest CT correlation is recommended. Reading Location: [facility] CC: CERTIFIED FAMILY MEDIATOR-Nathan Crandall; Dr. 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 Smoking Status: Former smoker Quit 09/2021 Decision Making Engaged in shared decision making visit utilizing a visual aid. Discussed the risks and benefits of lung cancer screening including the total radiation exposure, false positive rate, over diagnosis and potential need for follow-up diagnostic testing all associated with low-dose chest CT. Comorbidities CAD, osteoporosis ROS Const Denies anorexia, Denies fatigue, Denies headache(s), Denies poor appetite and Denies weight loss ENT Denies headache(s) Card Denies chest pain, Denies dyspnea and Denies palpitations Resp Denies cough, Denies dyspnea, Denies hemoptysis and Denies wheezing GI Reports system reviewed and no additional complaints, except as documented Musc Reports system reviewed and no additional complaints, except as documented Skin/Breast Reports system reviewed and no additional complaints, except as documented Neuro Yes system reviewed and no additional complaints, except as documented and No headache(s) Psych Reports system reviewed and no additional complaints, except as documented Endo Reports system reviewed and no additional complaints, except as documented, Denies fatigue and Denies palpitations Brandon/Lymph Reports system reviewed and no additional complaints, except as documented Aller/Immun Denies wheezing Exam Const General: healthy appearing and not in acute distress Orientation: oriented x3 HENMT Head: normocephalic and atraumatic Neck Neck: trachea midline, supple and no lymphadenopathy noted Resp Effort Inspection: normal respiratory effort and symmetric chest movement Auscultation: Bilateral: Clear to Auscultation Cardio Rate: regular rate Rhythm: regular rhythm Heart Sounds: S1 normal and S2 normal Psych Affect: normal affect Speech and Movement: speech and movement normal Results Results April 03, [address] Lung Screening COMPARISON: September 14, 2024 FINDINGS: PULMONARY NODULES: (Only nodules >3mm are reported) Pulmonary Nodules: There is a 0.8 x 0.6 cm solid nodular density in the left lung base, image 172/227, new. There is a 0.5 cm nodular density in the left lingular segment, image 177/227, new. Hardware:None Lymph Nodes:None Heart and Vasculature:Atheroscleroti c calcifications are noted Lungs and Airways: There is no acute infiltrate or consolidation Pleura:There is no pneumothorax or effusion Upper Abdomen:Anatomic detail is limited Bones:There is no visible bony abnormality IMPRESSION: There is a 0.8 x 0.6 cm solid nodular density in the left lung base, image 172/227, new. There is a 0.5 cm nodular density in the left lingular segment, image 177/227, new. Coronary artery calcification (CAC) is present Lung-RADS Category: 4A: Probably suspicious: Three-month chest CT correlation is recommended. Intake Vital Signs 01/29/25 10:15 04/03/25 12:04 Height 5 ft 5 in 5 ft 5 in Weight: 147 lb 2 oz BMI 24.5 BP 130/79 H Blood Pressure Location Lt brachial Position Sitting Respiration 16 Pulse 62 Pulse Source Monitor Temp 99.1 F Temp Source Temporal Pulse Oximetry (%) 97 Oxygen Delivery Method room air Intake Visit Reasons: Lung cancer screening Is patient in pain?: No Allergies codeine Allergy (Verified 04/03/25 12:04) Rash ibandronate sodium (From Boniva) Adverse Reaction (Verified 04/03/25 12:04) EXTREME GERD plasic tape Allergy (Mild, Uncoded 04/03/25 12:04) Rash Medications ???Medication ???Instructions ???Recorded ???Confirmed ???Type calcium carbonate 1,200 mg PO DAILY 07/07/19 5 History Lactobacillus acidophilus and 1 ea PO DAILY 09/09/19 04/03/25 Hi story rhamnosus 15 billion cell capsule vitamins A,C,N-gajk-[id number] 4,296 1 cap PO BID 12/19/21 04/03/25 His tory mcg-226 mg-90 mg capsule (PreserVision AREDS) dicyclomine 20 mg tablet 20 mg PO BID PRN abdominal pain 7 07/25/23 04/03/25 Rx days #14 tabs cholecalciferol (vitamin D3) 25 25 mcg PO DAILY 07/30/23 04/03/25 History mcg (1,000 unit) capsule hydroxyzine HCl 25 mg tablet 25 mg PO BID PRN anxiety #60 tabs 06/12/24 04/03/25 Rx gabapentin 100 mg capsule 100 mg PO TID PRN NERVE PAIN 07/1304/03/25 History denosumab 60 mg/mL subcutaneous 60 mg subcut [id number] #1 mL 04/03/25 Rx syringe bupropion HCl 150 mg 24 hr tablet, 150 mg P (more content not included)... Normal [facility] Urine Cultureon 03-29-2025 URC Culture exhibits no growth. Normal [facility] Comment on above: Performed By: #### L 100.0100, L500.4050 #### [facility] Laboratory [address] [place] [place], [place], [id number] Laboratory - Chemistry and C hemistry - challengeOrdered By: Hiren Awad on 03-28-2025 Bilirubin Ql (U) Negative [facility] Glucose Ql (U) Negative [facility] Ketones Ql (U) Negative [facility] pH (U) 6.0 [pH] [facility] Specific gravity (U) [Rel density] 1.020 [facility] Urobilinogen (U) [Mass/Vol] Negative [facility] Laboratory - Hematology and Cell countsOrdered By: Hiren Awad on 03-28-2025 Hemoglobin Ql (U) Negative [facility] Laboratory - Specimen inform ationOrdered By: Hiren Awad on 03-28-2025 Clarity (U) Clear [facility] Color (U) YELLOW [facility] Laboratory - UrinalysisOrder ed By: Hiren Awad on 03-28-2025 Nitrite Ql (U) Negative [facility] Protein Ql (U) Trace [facility] No Panel InformationOrdered By: Hiren Awad on 03-28-2025 Urine Leukocytes Positive [facility] Urine Non-Hemolyzed Blood Large [facility] Urgent Care Visit Reporton 0 03-28-2025 Urgent Care Visit Report [facility] [address], [address] [place], [place] [address] OFFICE VISIT Date of Service: 03/28/25 MR#: [id number] Acct: [id number] Name: ZEE RAMIREZ Rep #: [id number] : 1950 Provider: BRIANNE Eckert Age/Sex: 74/F Location: [facility] Status: Signed Intake Vital Signs 05/19/25 10:15 03/28/25 15:06 Height 5 ft 5 in Weight: 145 lb BMI 24.1 BP 114/62 110/60 Blood Pressure Location Lt brachial Lt brachial Position Sitting Sitting Respiration 18 16 Pulse 73 72 Pulse Source Monitor NIBP Temp 97.8 F 98.3 F Temp Source Temporal Oral Pulse Oximetry (%) 97 97 Oxygen Delivery Method room air room air Intake Visit Reasons: CONCERN FOR UTI Chief Complaint: dysuria, frequency, decreased output Bag Loader Required: No Is patient in pain?: Yes Allergies codeine Allergy (Verified 03/28/25 15:07) Rash ibandronate sodium (From Boniva) Adverse Reaction (Verified 03/28/25 15:07) EXTREME GERD plasic tape Allergy (Mild, Uncoded 03/28/25 15:07) Rash Is last menstrual period known: No Post menopausal: Yes Patient : No Have you fallen in the past year?: No Nurse's Note: dysuria, frequency, decreased output since last night. denies back pain, fever, blood in urine. concern for UTI PFSH Medical History (Updated 01/29/25 @ 12:[address] Katalina Velazquez MD) Health care maintenance Elevated liver enzymes Degenerative disc disease Fibromyoma Depression Former smoker Coronary artery disease At high risk for cardiovascular disease Localized swelling, mass and lump, neck Blister of gingiva with infection Submandibular lymphadenopathy Screening for cardiovascular condition Degenerative cervical disc Flu vaccine need Ulnar neuropathy of right upper extremity Chronic neck pain Allergic rhinosinusitis Allergic conjunctivitis Acute conjunctivitis, unspecified Varicose veins of bilateral lower extremities with pain Chronic back pain Anxiety and depression Hx of headache H/O emotional problems Hx of cataract History of back problems Allergies Urinary tract infection with hematuria Positive P-ANCA titer Osteoarthritis Breast lump Arthritis Left knee pain Hypokalemia Hypocalcemia De Quervain's tenosynovitis Anxiety Acute kidney injury TMJ arthralgia Right knee pain Mass of urinary bladder EIC (epidermal inclusion cyst) Depressive disorder Coronary artery calcification Calcification of abdominal aorta Atypical chest pain Epigastric pain Umbilical hernia Retroperitoneal lymphadenopathy Panic disorder Normocytic anemia Lumbar back pain IBS (irritable bowel syndrome) Hydronephrosis Diverticulitis Osteoporosis Fibromyalgia Surgical History History of cholecystectomy History of cholecystectomy H/O: hysterectomy Hx of colonoscopy Cataract extraction status History of repair of hiatal hernia Family History Father Arthritis Grandmother Diabetes Grandfather Myocardial infarction Mother Myocardial infarction CVA (cerebral vascular accident) Other Fibromyalgia IBS (irritable bowel syndrome) Social History Smoking Status: Former smoker alcohol intake: never substance use type: does not use what type of physical activity do you participate in: none HPI HPI Chief Complaint: dysuria, frequency, decreased output Details: ZEE RAMIREZ, is a 74 F who presents to the office today for [facility] at [facility] for approximately 24 hours history of dysuria and urinary frequency with suprapubic pressure. No complaints of fever, chills, sweats, lightheadedness/dizziness, nausea/vomiting, or chest pain/shortness of breath/dyspnea on exertion/back pain. No changes in color/ character of urine or stool. No vodw-ynp-zwhkgrb products taken to assist. No other associated symptoms and no alleviating/aggravating factors. ROS Const Constitutional: No other (As above) Exam Const General: cooperative, healthy appearing and no acute distress Orientation: alert, awake and oriented x3 Chest Chest palpation inspection: normal inspection of the chest Resp Effort Inspection: normal respiratory effort and able to speak in complete sentences Cardio Rate: regular rate Pulses: radial pulses present GI Inspection: normal to inspection Palpation: soft and tender suprapubic (Patient describes upon self-palpation) General: No CVA tenderness Skin General: no rashes or lesions noted Neuro General: patient alert, patient awake and patient oriented x3 Cognition: normal cognition Speech: speech normal Psych Appearance: grossly normal Ment (more content not included)... Normal [facility] Urine cultureOrdered By: Narendra Awad on 03-28-2025 Bacteria identified Cx Nom (U) Culture exhibits no growth. [facility] Office Visit Reporton 2024 Office Visit Report [facility] [address] [place] [address] OFFICE VISIT Date of Service: 02/13/25 MR#: [id number] Acct: [id number] Patient: ZEE RAMIREZ Rep #: [id number] : 1950 Provider: Bogdan Yeung Age/Sex: 74/F Location: [facility] Status: Signed Intake Vital Signs 01/05/25 12:00 01/29/25 10:15 Height 5 ft 5 in 5 ft 5 in Weight: 145 lb BMI 24.1 BP 114/62 Blood Pressure Location Lt brachial Position Sitting Respiration 18 Pulse 73 Pulse Source Monitor Temp 97.8 F Temp Source Temporal Pulse Oximetry (%) 97 Oxygen Delivery Method room air Intake Visit Reasons: Prolia - B B Chief Complaint: 3 M FU Allergies codeine Allergy (Verified 01/29/25 10:16) Rash ibandronate sodium (From Boniva) Adverse Reaction (Verified 01/29/25 10:16) EXTREME GERD plasic tape Allergy (Mild, Uncoded 01/29/25 10:16) Rash Have you fallen in the past year?: No Office Procedures Injections Procedure performed by: Maria De Jesus Wynn Lot number: [id number] Tea Taster: [employer] date: 05/13/27 Dose of injection: 1mL Site of injection: Sub-Q Medication Given: Yes Is this a patient provided medication?: No Office Meds Prolia 60 mg/mL subcutaneous syringe Performing Provider: Austin Avina MD Performing Location: [facility] Administered by: Maria De Jesus Wynn on 02/13/25 11:24 Dose Route Admin Location Dispensed Lot Number Expiration Date ND Man ufacturer 60 mg subcut Lt Arm 1 mL [id number] 05/13/27 78139-652-11 [employer] Assessment and Plan Assessment and Plan (1) Osteoporosis: Status: Chronic Qualifiers: Osteoporosis type: unspecified Presence of current pathological fracture: without current pathological fracture Qualified Code(s): M81.0 - Age-related osteoporosis without current pathological fracture Orders: Orders Prolia Injection Today M81.0 - Age-related osteoporosis without current pathological fracture Clinical Quality Measures Falls Risk Screening/Assistive Devices Have you fallen in the past year?: No 02/13/25 1249 Date Austin Avina MD Cosigner Signature: Date (if applicable) CC: Normal [facility] Anion gap in Serum or Plasma Ordered By: Katalina Velazquez on 01-29-2025 Anion gap [Moles/Vol] 9 mmol/L 5-15 [facility] BUN/creatinine ratioOrdered By: Katalina Velazquez on 01-29-2025 Urea nitrogen/Creatinine [Mass ratio] 19.3 mg/mg 10- [facility] Bilirubin, totalOrdered By: Katalina Velazquez on 01-29-2025 Bilirubin [Mass/Vol] 0.36 mg/dL 0.00-1.30 [facility] Carbon dioxide, total [Moles /volume] in Central venous bloodOrdered By: Katalina Velazquez on 01-29-2025 CO2 [Moles/Vol] 25.6 mmol/L 21.0-32.0 [facility] Chloride assayOrdered By: Orlando Velazquez on 01-29-2025 Chloride [Moles/Vol] 106 mmol/L 98-108 [facility] Comprehensive Metabolic Prof ilon 01-29-2025 Albumin [Mass/Vol] 4.2 g/dL Normal 3.4-4.8 [facility] Comment on above: Performed By: #### L 501.8400, L300.3900, L501.9520 #### [facility] [address] [place], [address] Albumin/Globulin [Mass ratio] 1.7 {ratio} Normal 0.9-2.4 [facility] Comment on above: Performed By: #### L 501.8400, L300.3900, L501.9520 #### [facility] [address] [place], [address] ALK PHOS 145 U/L High 35-104 [facility] Comment on above: Performed By: #### L 501.8400, L300.3900, [id number] #### [facility] [address] [place], [address] ALT [Catalytic activity/Vol] 34 U/L Normal <=34 [facility] Comment on above: Performed By: #### L 501.8400, L300.3900, [id number] #### [facility] [address] [place], [address] AST [Catalytic activity/Vol] 26 U/L Normal <=31 [facility] Comment on above: Performed By: #### L 501.8400, L300.3900, [id number] #### [facility] [address] [place], [address] Bilirubin [Mass/Vol] 0.36 mg/dL Normal 0.00-1.30 [facility] Comment on above: Performed By: #### L 501.8400, L300.3900, [id number] #### [facility] [address] [place], [address] BUN/CRE 19.3 RATIO Normal 10-20 [facility] Comment on above: Performed By: #### L 501.8400, L300.3900, [id number] #### [facility] [address] [place], [address] Calcium [Mass/Vol] 9.5 mg/dL Normal 7.6-11.0 [facility] Comment on above: Performed By: #### L 501.8400, L300.3900, L501.9520 #### [facility] [address] [place], [address] Chloride [Moles/Vol] 106 mmol/L Normal 98-108 [facility] Comment on above: Performed By: #### L 501.8400, L300.3900, L501.9520 #### [facility] [address] [place], [address] CO2 [Moles/Vol] 25.6 mmol/L Normal 21.0-32.0 [facility] Comment on above: Performed By: #### L 501.8400, L300.3900, L501.9520 #### [facility] [address] [place], [address] Creatinine [Mass/Vol] 0.69 mg/dL Low 0.70-1.20 [facility] Comment on above: Performed By: #### L 501.8400, L300.3900, L501.9520 #### [facility] [address] [place], [address] GAP 9 Normal 5-15 [facility] Comment on above: Performed By: #### L 501.8400, L300.3900, L501.9520 #### [facility] [address] [place], [address] GFR/1.73 sq M.predicted among non-blacks MDRD (S/P/Bld) [Vol rate/Area] 91 mL/min/{1.73_m2} Normal >60 [facility] Comment on above: Result Comment: mL/m in/1.73m2 CKD-EPI Creatinine Equation (2020) Performed By: #### L 501.8400, L300.3900, L501.9520 #### [facility] [address] [place], [address] Globulin (S) [Mass/Vol] 2.5 g/dL Normal 2.2-4.2 [facility] Comment on above: Performed By: #### L 501.8400, L300.3900, L501.9520 #### [facility] [address] [place], [address] Glucose [Mass/Vol] 106 mg/dL High 70-99 [facility] Comment on above: Performed By: #### L 501.8400, L300.3900, L501.9520 #### [facility] [address] [place], [address] Potassium [Moles/Vol] 4.4 mmol/L Normal 3.3-5.1 [facility] Comment on above: Performed By: #### L 501.8400, L300.3900, L501.9520 #### [facility] [address] [place], [address] Sodium [Moles/Vol] 140 mmol/L Normal 133-145 [facility] Comment on above: Performed By: #### L 501.8400, L300.3900, L501.9520 #### [facility] [address] [place], [address] T PROT 6.7 g/dL Normal 5.9-8.4 [facility] Comment on above: Performed By: #### L 501.8400, L300.3900, L501.9520 #### [facility] [address] [place], [address] Urea nitrogen [Mass/Vol] 13 mg/dL Normal -19 [facility] Comment on above: Performed By: #### L 501.8400, L300.3900, L501.9520 #### [facility] [address] [place], [address] Glomerular filtration rate ( GFR) estimation/1.73 sq m using serum, plasma, or whole bOrdered By: Katalina Velazquez on 01-29-2025 GFR/1.73 sq M.predicted among non-blacks MDRD (S/P/Bld) [Vol rate/Area] 91 mL/min/{1.73_m2} >60 [facility] Comment on above: mL/min/1.73m2 CKD-EP I Creatinine Equation (2020) Internal Medicine Office Vis enrrique 01-29-2025 Internal Medicine Office Visit [facility] [address] [place] [address] [place] [address] OFFICE VISIT Date of Service: 01/29/25 MR#: [id number] Acct: [id number] Name: ZEE RAMIREZ Rep #: [id number] : 1950 Provider: Dr. Katalina jarquin MD Age/Sex: 74/F Location[place] [facility] Status: Signed Intake Vital Signs 11/13/24 10:16 01/05/25 12:00 01/29/25 10:15 Height 5 ft 5 in 5 ft 5 in 5 ft 5 in Weight: 145 lb BMI 24.1 BP 114/62 Blood Pressure Location Lt brachial Position Sitting Respiration 18 Pulse 73 Pulse Source Monitor Temp 97.8 F Temp Source Temporal Pulse Oximetry (%) 97 Oxygen Delivery Method room air Intake Visit Reasons: 3 M FU Chief Complaint: 3 M FU Is patient in pain?: Yes (4 lower) Allergies codeine Allergy (Verified 01/29/25 10:16) Rash ibandronate sodium (From Boniva) Adverse Reaction (Verified 01/29/25 10:16) EXTREME GERD plasic tape Allergy (Mild, Uncoded 01/29/25 10:16) Rash Medications ???Medication ???Instructions ???Recorded ???Confirmed ???Type calcium carbonate 1,200 mg PO DAILY 07/07/19 5 History Lactobacillus acidophilus and 1 ea PO DAILY 09/09/19 01/29/25 Hi story rhamnosus 15 billion cell capsule vitamins A,C,X-cecg-ymoueo 4,296 1 cap PO BID 12/19/21 01/29/25 His tory mcg-226 mg-90 mg capsule (PreserVision AREDS) dicyclomine 20 mg tablet 20 mg PO BID PRN abdominal pain 7 07/25/23 01/29/25 Rx days #14 tabs cholecalciferol (vitamin D3) 25 25 mcg PO DAILY 07/30/23 01/29/25 History mcg (1,000 unit) capsule hydroxyzine HCl 25 mg tablet 25 mg PO BID PRN anxiety #60 tabs 06/12/24 01/29/25 Rx gabapentin 100 mg capsule 100 mg PO TID PRN NERVE PAIN 07/1301/29/25 History denosumab 60 mg/mL subcutaneous 60 mg subcut [id number] #1 mL 01/29/25 Rx syringe bupropion HCl 150 mg 24 hr tablet, 150 mg PO DAILY #90 tabs 5 01/29/25 Rx extended release aahvfu-vvpenwtx-puqifrn 1 cap PO TID #320 caps 10/25/24 Rx 36,000-114,000-180,000 unit capsule,delay rel (Creon) cholestyramine (with sugar) 4 gram 4 g PO QHS PRN diarrhea 01/04/25 01/29/25 History powder for susp in a packet cyclosporine 0.05 % eye drops in a 1 drp ophthalmic (eye) Q12H 12/1301/29/25 History dropperette (Restasis) duloxetine 30 mg capsule,delayed 30 mg PO DAILY 01/04/25 01/29/25 H istory release duloxetine 30 mg capsule,delayed 60 mg PO QHS NERVE PAIN 01/04/25 0 01/29/25 History release (Cymbalta) vitamin E 268 mg (400 unit) capsule 268 mg PO DAILY 01/04/25 History Have you fallen in the past year?: Yes (x1) [facility] Medical History (Updated 01/29/25 @ 12:[address] Katalina Velazquez MD) Health care maintenance Elevated liver enzymes Degenerative disc disease Fibromyoma Depression Former smoker Coronary artery disease At high risk for cardiovascular disease Localized swelling, mass and lump, neck Blister of gingiva with infection Submandibular lymphadenopathy Screening for cardiovascular condition Degenerative cervical disc Flu vaccine need Ulnar neuropathy of right upper extremity Chronic neck pain Allergic rhinosinusitis Allergic conjunctivitis Acute conjunctivitis, unspecified Varicose veins of bilateral lower extremities with pain Chronic back pain Anxiety and depression Hx of headache H/O emotional problems Hx of cataract History of back problems Allergies Urinary tract infection with hematuria Positive P-ANCA titer Osteoarthritis Breast lump Arthritis Left knee pain Hypokalemia Hypocalcemia De Quervain's tenosynovitis Anxiety Acute kidney injury TMJ arthralgia Right knee pain Mass of urinary bladder EIC (epidermal inclusion cyst) Depressive disorder Coronary artery calcification Calcification of abdominal aorta Atypical chest pain Epigastric pain Umbilical hernia Retroperitoneal lymphadenopathy Panic disorder Normocytic anemia Lumbar back pain IBS (irritable bowel syndrome) Hydronephrosis Diverticulitis Osteoporosis Fibromyalgia Surgical History History of cholecystectomy History of cholecystectomy H/O: hysterectomy Hx of colonoscopy Cataract extraction status History of repair of hiatal hernia Family History Father Arthritis Grandmother Diabetes Grandfather Myocardial infarction Mother Myocardial infarction CVA (cerebral vascular accident) Other Fibromyalgia IBS (irritable bowel syndrome) Social History Smoking Status: Former smoker alcohol intake: never substance use type: does not use what type of physical activity do you participate in: none H (more content not included)... Normal [facility] Laboratory - Chemistry and C hemistry - challengeOrdered By: Katalina Velazquez on 01-29-2025 AST [Catalytic activity/Vol] 26 U/L <32 [facility] Potassium measurement (mass/ volume)Ordered By: Katalina Velazquez on 01-29-2025 Potassium (Unsp spec) [Mass/Vol] 4.4 mmol/L 3.3-5.1 [facility] Serum creatinine measurement (mass/volume)Ordered By: Katalina Velazquez on 01-29-2025 Creatinine [Mass/Vol] 0.69 mg/dL Low 0.70-1.20 [facility] Serum globulin measurementOr dered By: Katalina Velazquez on 01-29-2025 Globulin (S) [Mass/Vol] 2.5 g/dL 2.2-4.2 [facility] Serum glucose measurement (m ass/volume)Ordered By: Katalina Velazquez on 01-29-2025 Glucose [Mass/Vol] 106 mg/dL High 70-99 [facility] Serum or plasma alanine boyle otransferase (ALT) measurementOrdered By: Katalina Velazquez on 01-29-2025 ALT [Catalytic activity/Vol] 34 U/L <35 [facility] Serum or plasma albumin lavon urement (mass/volume)Ordered By: Katalina Velazquez on 01-29-2025 Albumin [Mass/Vol] 4.2 g/dL 3.4-4.8 [facility] Serum or plasma albumin/glob ulin mass ratioOrdered By: Orlandoriki Oliverharriet on 01-29-2025 Albumin/Globulin [Mass ratio] 1.7 {ratio} 0.9-2.4 [facility] Serum or plasma alkaline dillon sphatase measurementOrdered By: Orlandocelena Boydharriet on 01-29-2025 ALP [Catalytic activity/Vol] 145 U/L High 35-104 [facility] Serum or plasma calcium lavon urement (mass/volume)Ordered By: Orlandocelena Boydgarretkay on 01-29-2025 Calcium [Mass/Vol] 9.5 mg/dL 7.6-11.0 [facility] Serum or plasma urea nitroge n measurement (mass/volume)Ordered By: celena Boydharriet on 01-29-2025 Urea nitrogen [Mass/Vol] 13 mg/dL 4-19 [facility] Sodium levelOrdered By: louis lyn Olivergarretkay on 01-29-2025 Sodium [Moles/Vol] 140 mmol/L 133-145 [facility] T4 Free Directon 01-29-2025 T4 FREE DIRECT 0.90 ng/dL Normal 0.76-1.46 [facility] Comment on above: Performed By: #### L 501.8400, L300.3900, L501.9520 #### [facility] [address] [place], [place], [id number] T4 freeOrdered By: Katalina Velazquez on 01-29-2025 Free T4 [Mass/Vol] 0.90 ng/dL 0.76-1.46 [facility] TSH DL <= 0.005 mIU/L QnOrde red By: Katalina Velazquez on 01-29-2025 TSH Qn 2.640 uIU/mL 0.300-4.200 [facility] Thyroid Stim Hormone (TSH)on 01-29-2025 TSH 2.640 uIU/mL Normal 0.300-4.200 [facility] Comment on above: Performed By: #### L 501.8400, L300.3900, L501.9520 #### [facility] [address] [place], [place], [address] Total proteinOrdered By: Rodger Velazquez on 01-29-2025 Protein [Mass/Vol] 6.7 g/dL 5.9-8.4 [facility] Lumbar Spine 2 or 3 Viewson 01-19-2025 Lumbar Spine 2 or 3 Views [facility] [address] [place], [place] [address] Lumbar Spine 2 or 3 Views MR#: [id number] Acct: [id number] Name: ZEE RAMIREZINE Rep #: [id number] : 1950 F 74 From: Lilly Godinez MD PCP: Dr. Katalina Velazquez MD Status: DEP AMB Study: Lumbar Spine 2 or 3 Views Date of Exam: Exam# [id number] Ordering Dr: Cindy Arzola PROCEDURE: LUMBAR SPINE 2 OR 3 VIEWS 01/19/2025 REASON FOR EXAM: PAIN, RECENT FALL TECHNIQUE: 2 view(s) of the lumbar spine COMPARISON: 04/26/2023 FINDINGS: 5 mon-qgj-iynhdix lumbar vertebral body types identified. No fracture. Mild anterolisthesis L5 on S1 with severe appearing disc space narrowing and degenerative endplate changes again noted. Status post cholecystectomy. RAD/Lumbar Spine 2 or 3 Views IMPRESSION: No fracture. Mild anterolisthesis L5 on S1 with severe appearing disc space narrowing and degenerative endplate changes again noted. Reading Location: [id number] CC: BRIANNE Neely; Dr. 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 Normal [facility] Orthopedic Visit Reporton Orthopedic Visit Report [facility] [address] [place] [address] [address] [place] [address] OFFICE VISIT Date of Service: 01/19/25 MR#: [id number] Acct: [id number] Name: ZEE RAMIREZRAINE Rep #: [id number] : 1950 Provider: BRIANNE Neely Age/Sex: 74/F Location[place] [facility] Status: Signed Intake Vital Signs 01/05/25 12:00 Height 5 ft 5 in Intake Visit Reasons: lumbar spine Chief Complaint: lumbar spine Is patient in pain?: Yes (lumbar spine ) Pain scale (1-10): 5 Allergies codeine Allergy (Verified 01/19/25 09:54) Rash ibandronate sodium (From Boniva) Adverse Reaction (Verified 01/19/25 09:54) EXTREME GERD plasic tape Allergy (Mild, Uncoded 01/19/25 09:54) Rash Medications ???Medication ???Instructions ???Recorded ???Confirmed ???Type calcium carbonate 1,200 mg PO DAILY 07/07/19 5 History Lactobacillus acidophilus and 1 ea PO DAILY 09/09/19 01/19/25 Hi story rhamnosus 15 billion cell capsule vitamins A,C,L-jsxs-klgwiq 4,296 1 cap PO BID 12/19/21 01/19/25 His tory mcg-226 mg-90 mg capsule (PreserVision AREDS) dicyclomine 20 mg tablet 20 mg PO BID PRN abdominal pain 7 07/25/23 01/19/25 Rx days #14 tabs cholecalciferol (vitamin D3) 25 25 mcg PO DAILY 07/30/23 01/19/25 History mcg (1,000 unit) capsule hydroxyzine HCl 25 mg tablet 25 mg PO BID PRN anxiety #60 tabs 06/12/24 01/19/25 Rx gabapentin 100 mg capsule 100 mg PO TID PRN NERVE PAIN 07/1301/19/25 History denosumab 60 mg/mL subcutaneous 60 mg subcut [id number] #1 mL 01/19/25 Rx syringe bupropion HCl 150 mg 24 hr tablet, 150 mg PO DAILY #90 tabs 5 01/19/25 Rx extended release xrtele-petvngbt-vkbzwbr 1 cap PO TID #320 caps 10/25/24 Rx 36,000-114,000-180,000 unit capsule,delay rel (Creon) cholestyramine (with sugar) 4 gram 4 g PO QHS PRN diarrhea 01/04/25 01/19/25 History powder for susp in a packet cyclosporine 0.05 % eye drops in a 1 drp ophthalmic (eye) Q12H /01/0501/19/25 History dropperette (Restasis) duloxetine 30 mg capsule,delayed 30 mg PO DAILY 01/04/25 01/19/25 H istory release duloxetine 30 mg capsule,delayed 60 mg PO QHS NERVE PAIN 01/04/25 0 01/19/25 History release (Cymbalta) vitamin E 268 mg (400 unit) capsule 268 mg PO DAILY 01/04/25 History Have you fallen in the past year?: Yes PFSH Medical History Degenerative disc disease Fibromyoma Depression Former smoker Coronary artery disease At high risk for cardiovascular disease Localized swelling, mass and lump, neck Blister of gingiva with infection Submandibular lymphadenopathy Screening for cardiovascular condition Degenerative cervical disc Flu vaccine need Ulnar neuropathy of right upper extremity Chronic neck pain Allergic rhinosinusitis Allergic conjunctivitis Acute conjunctivitis, unspecified Varicose veins of bilateral lower extremities with pain Chronic back pain Anxiety and depression Hx of headache H/O emotional problems Hx of cataract History of back problems Allergies Urinary tract infection with hematuria Positive P-ANCA titer Osteoarthritis Breast lump Arthritis Left knee pain Hypokalemia Hypocalcemia De Quervain's tenosynovitis Anxiety Acute kidney injury TMJ arthralgia Right knee pain Mass of urinary bladder EIC (epidermal inclusion cyst) Depressive disorder Coronary artery calcification Calcification of abdominal aorta Atypical chest pain Epigastric pain Umbilical hernia Retroperitoneal lymphadenopathy Panic disorder Normocytic anemia Lumbar back pain IBS (irritable bowel syndrome) Hydronephrosis Elevated liver enzymes Diverticulitis Osteoporosis Fibromyalgia Surgical History History of cholecystectomy History of cholecystectomy H/O: hysterectomy Hx of colonoscopy Cataract extraction status History of repair of hiatal hernia Family History Father Arthritis Grandmother Diabetes Grandfather Myocardial infarction Mother Myocardial infarction CVA (cerebral vascular accident) Other Fibromyalgia IBS (irritable bowel syndrome) Social History Smoking Status: Former smoker alcohol intake: never substance use type: does not use what type of physical activity do you participate in: none HPI lumbar spine Details: This documentation accurately reflects the service provided and the decisions made by me, BRIANNE Neely 01/19/25 0338. Part of today???s visit was documented by Tierney Avina RN, acting as scribe. ZEE RAMIREZ is a 74 year old F here today for lumbar spine pain. S (more content not included)... Normal [facility] Anion gap in Serum or Plasma Ordered By: Katalina Velazquez on 01-08-2025 Anion gap [Moles/Vol] 12 mmol/L 5-15 [facility] BUN/creatinine ratioOrdered By: Katalina Velazquez on 01-08-2025 Urea nitrogen/Creatinine [Mass ratio] 21.8 mg/mg High 10- [facility] Bilirubin directOrdered By: Katalina Velazquez on 01-08-2025 Bilirubin.direct [Mass/Vol] 0.22 mg/dL 0.00-0.30 [facility] Bilirubin, Directon 01-09-20 25 Bilirubin.direct [Mass/Vol] 0.22 mg/dL Normal 0.00-0.30 [facility] Comment on above: Order Comment: DR.MT HERNADEZ ORDERED LIVERDR.LONILEHARRIET ORDERED CMP,LIPID Performed By: #### L 501.8400, L300.3900, [id number] #### [facility] Laboratory [address] [place], [address] Bilirubin, totalOrdered By: Katalina Velazquez on 01-08-2025 Bilirubin [Mass/Vol] 0.43 mg/dL 0.00-1.30 [facility] Calculated very low density lipoprotein (VLDL) cholesterol measurementOrdered By: Katalina Velazquez on 01-08-2025 Calculated very low density lipoprotein (VLDL) cholesterol measurement 21 mg/dL - [facility] Carbon dioxide, total [Moles /volume] in Central venous bloodOrdered By: Katalina Velazquez on 01-08-2025 CO2 [Moles/Vol] 26.0 mmol/L 21.0-32.0 [facility] Chloride assayOrdered By: Orlando Velazquez on 01-08-2025 Chloride [Moles/Vol] 102 mmol/L 98-108 [facility] Comprehensive Metabolic Prof ilon 01-08-2025 Albumin [Mass/Vol] 4.0 g/dL Normal 3.4-4.8 [facility] Comment on above: Order Comment: DR.MT HERNADEZ ORDERED LIVERDR.EOLEGHE ORDERED CMP,LIPID Performed By: #### L 501.8400, L300.3900, [id number] #### [facility] [address] [place], [address] Albumin/Globulin [Mass ratio] 1.7 {ratio} Normal 0.9-2.4 [facility] Comment on above: Order Comment: DR.MT HERNADEZ ORDERED LIVERDR.EOLEGHE ORDERED CMP,LIPID Performed By: #### L 501.8400, L300.3900, [id number] #### [facility] [address] [place], [address] ALK PHOS 301 U/L High 35-104 [facility] Comment on above: Order Comment: DR.MT HERNADEZ ORDERED LIVERDR.EOLEGHE ORDERED CMP,LIPID Performed By: #### L 501.8400, L300.3900, [id number] #### [facility] [address] [place], [address] ALT [Catalytic activity/Vol] 299 U/L High <=34 [facility] Comment on above: Order Comment: DR.MT HERNADEZ ORDERED LIVERDR.EOLEGHE ORDERED CMP,LIPID Performed By: #### L 501.8400, L300.3900, [id number] #### [facility] [address] [place], [address] AST [Catalytic activity/Vol] 92 U/L High <=31 [facility] Comment on above: Order Comment: DR.MT HERNADEZ ORDERED LIVERDR.EOLEGHE ORDERED CMP,LIPID Performed By: #### L 501.8400, L300.3900, [id number] #### [facility] [address] [place], [address] Bilirubin [Mass/Vol] 0.43 mg/dL Normal 0.00-1.30 [facility] Comment on above: Order Comment: DR.MT HERNADEZ ORDERED LIVERDR.EOLEGHE ORDERED CMP,LIPID Performed By: #### L 501.8400, L300.3900, [id number] #### [facility] [address] [place], [address] BUN/CRE 21.8 RATIO High 10-20 [facility] Comment on above: Order Comment: DR.MT HERNADEZ ORDERED LIVERDR.EOLEGHE ORDERED CMP,LIPID Performed By: #### L 501.8400, L300.3900, [id number] #### [facility] [address] [place], [address] Calcium [Mass/Vol] 9.4 mg/dL Normal 7.6-11.0 [facility] Comment on above: Order Comment: DR.MT HERNADEZ ORDERED LIVERDR.EOLEGHE ORDERED CMP,LIPID Performed By: #### L 501.8400, L300.3900, [id number] #### [facility] [address] [place], [address] Chloride [Moles/Vol] 102 mmol/L Normal 98-108 [facility] Comment on above: Order Comment: DR.MT HERNADEZ ORDERED LIVERDR.EOLEGHE ORDERED CMP,LIPID Performed By: #### L 501.8400, L300.3900, [id number] #### [facility] [address] [place], [address] CO2 [Moles/Vol] 26.0 mmol/L Normal 21.0-32.0 [facility] Comment on above: Order Comment: DR.MT HERNADEZ ORDERED LIVERDR.EOLEGHE ORDERED CMP,LIPID Performed By: #### L 501.8400, L300.3900, [id number] #### [facility] [address] [place], [address] Creatinine [Mass/Vol] 0.73 mg/dL Normal 0.70-1.20 [facility] Comment on above: Order Comment: DR.MT HERNADEZ ORDERED LIVERDR.EOLEGHE ORDERED CMP,LIPID Performed By: #### L 501.8400, L300.3900, [id number] #### [facility] [address] [place], [address] GAP 12 Normal 5-15 [facility] Comment on above: Order Comment: DR.MT HERNADEZ ORDERED LIVERDR.EOLEGHE ORDERED CMP,LIPID Performed By: #### L 501.8400, L300.3900, [id number] #### [facility] [address] [place], [address] GFR/1.73 sq M.predicted among non-blacks MDRD (S/P/Bld) [Vol rate/Area] 87 mL/min/{1.73_m2} Normal >60 [facility] Comment on above: Order Comment: DR.MT HERNADEZ ORDERED LIVERDR.EOLEGHE ORDERED CMP,LIPID Result Comment: mL/m in/1.73m2 CKD-EPI Creatinine Equation (2020) Performed By: #### L 501.8400, L300.3900, [id number] #### [facility] [address] [place], [address] Globulin (S) [Mass/Vol] 2.4 g/dL Normal 2.2-4.2 [facility] Comment on above: Order Comment: DR.MT HERNADEZ ORDERED LIVERDR.EOLEGHE ORDERED CMP,LIPID Performed By: #### L 501.8400, L300.3900, [id number] #### [facility] [address] [place], [address] Glucose [Mass/Vol] 102 mg/dL High 70-99 [facility] Comment on above: Order Comment: DR.MT HERNADEZ ORDERED LIVERDR.EOLEGHE ORDERED CMP,LIPID Performed By: #### L 501.8400, L300.3900, [id number] #### [facility] [address] [place], [address] Potassium [Moles/Vol] 4.0 mmol/L Normal 3.3-5.1 [facility] Comment on above: Order Comment: DR.MT HERNADEZ ORDERED LIVERDR.EOLEGHE ORDERED CMP,LIPID Performed By: #### L 501.8400, L300.3900, [id number] #### [facility] [address] [place], [address] Sodium [Moles/Vol] 140 mmol/L Normal 133-145 [facility] Comment on above: Order Comment: DR.MT HERNADEZ ORDERED LIVERDR.EOLEGHE ORDERED CMP,LIPID Performed By: #### L 501.8400, L300.3900, [id number] #### [facility] [address] [place], [address] T PROT 6.3 g/dL Normal 5.9-8.4 [facility] Comment on above: Order Comment: DR.MT HERNADEZ ORDERED LIVERDR.EOLEGHE ORDERED CMP,LIPID Performed By: #### L 501.8400, L300.3900, [id number] #### [facility] [address] [place], [address] Urea nitrogen [Mass/Vol] 16 mg/dL Normal 4-19 [facility] Comment on above: Order Comment: DR.MT HERNADEZ ORDERED LIVERDR.EOLEGHE ORDERED CMP,LIPID Performed By: #### L 501.8400, L300.3900, [id number] #### [facility] [address] [place], [address] Glomerular filtration rate ( GFR) estimation/1.73 sq m using serum, plasma, or whole bOrdered By: Katalina Velazquez on 01-08-2025 GFR/1.73 sq M.predicted among non-blacks MDRD (S/P/Bld) [Vol rate/Area] 87 mL/min/{1.73_m2} >60 [facility] Comment on above: mL/min/1.73m2 CKD-EP I Creatinine Equation (2020) LDL calc ser/plasOrdered By: Katalina Velazquez on 01-08-2025 Cholesterol in LDL [Mass/Vol] 97 mg/dL [facility] Comment on above: Wpmuwruddi=837-500 m g/dL & Higher Qiht=436 mg/dL or greater Laboratory - Chemistry and C hemistry - challengeOrdered By: Katalina Velazquez on 01-08-2025 AST [Catalytic activity/Vol] 92 U/L High <32 [facility] Lipid Profileon 01-08-2025 CHOL:HDL 3.05 Normal [facility] Comment on above: Order Comment: DR.MT HERNADEZ ORDERED LIVERDR.EOLEKay ORDERED CMP,LIPID Performed By: #### L 501.8400, L300.3900, [id number] #### [facility] [address] [place], [address] Cholesterol [Mass/Vol] 175 mg/dL Normal <=200 [facility] Comment on above: Order Comment: DR.MT HERNADEZ ORDERED LIVERDR.EOLEGHE ORDERED CMP,LIPID Result Comment: Chol esterol level, Desirable <200 mg/dL Borderline high cholesterol 200-239 mg/dL High cholesterol >=240 mg/dL Recommendations of the NCEP Adult Treatment Panel for the following risk-cutoff thresholds for the [place] population. Performed By: #### L 501.8400, L300.3900, [id number] #### [facility] [address] [place], [address] Cholesterol in HDL [Mass/Vol] 57 mg/dL Normal [facility] Comment on above: Order Comment: DR.MT HERNADEZ ORDERED LIVERDR.EOLEGHE ORDERED CMP,LIPID Result Comment: Eugenia onal Cholesterol Education Program (NCEP) guidelines: <40 mg/dL: Low HDL-cholesterol (major risk factor for CHD) >= 60 mg/dL: High HDL-cholesterol (negative risk factor for CHD) HDL-cholesterol is affected by a number of factors, e.g. smoking, exercise, hormones, sex and age. Performed By: #### L 501.8400, L300.3900, [id number] #### [facility] [address] [place], [address] Cholesterol in LDL [Mass/Vol] 97 mg/dL Normal [facility] Comment on above: Order Comment: DR.MT HERNADEZ ORDERED LIVERDR.EOLEGHE ORDERED CMP,LIPID Result Comment: Bord glwiqh=924-472 mg/dL Higher Ulzb=750 mg/dL or greater Performed By: #### L 501.8400, L300.3900, [id number] #### [facility] [address] [place], [address] Cholesterol in VLDL [Mass/Vol] 21 mg/dL Normal 5-40 [facility] Comment on above: Order Comment: DR.MT HERNADEZ ORDERED LIVERDR.EOLEGHE ORDERED CMP,LIPID Performed By: #### L 501.8400, L300.3900, [id number] #### [facility] [address] [place], [address] Triglyceride [Mass/Vol] 103 mg/dL Normal [facility] Comment on above: Order Comment: DR.MT HERNADEZ ORDERED LIVERDR.EOLEGHE ORDERED CMP,LIPID Result Comment: The drugs N-Acetylcysteine and Metamizole may falsely depress this assay. Normal range: <150 mg/dL Borderline High: 150-199 mg/dL High: 200-499 mg/dL Very High: >500 mg/dL Performed By: #### L 501.8400, L300.3900, [id number] #### [facility] [address] [place], [address] Potassium measurement (mass/ volume)Ordered By: Katalina Velazquez on 01-08-2025 Potassium (Unsp spec) [Mass/Vol] 4.0 mmol/L 3.3-5.1 [facility] Screening total cholesterol/ high density lipoprotein (HDL) cholesterol ratioOrdered By: Katalina Velazquez on 01-08-2025 Cholesterol.total/Cho lesterol in HDL [Mass ratio] 3.05 {ratio} [facility] Serum creatinine measurement (mass/volume)Ordered By: Katalina Velazquez on 01-08-2025 Creatinine [Mass/Vol] 0.73 mg/dL 0.70-1.20 [facility] Serum globulin measurementOr dered By: Katalina Velazquez 01-08-2025 Globulin (S) [Mass/Vol] 2.4 g/dL 2.2-4.2 [facility] Serum glucose measurement (m ass/volume)Ordered By: Katalina Velazquez 01-08-2025 Glucose [Mass/Vol] 102 mg/dL High 70-99 [facility] Serum or plasma alanine boyle otransferase (ALT) measurementOrdered By: Katalina Velazquez 01-08-2025 ALT [Catalytic activity/Vol] 299 U/L High <35 [facility] Serum or plasma albumin lavon urement (mass/volume)Ordered By: Katalina Velazquez 01-08-2025 Albumin [Mass/Vol] 4.0 g/dL 3.4-4.8 [facility] Serum or plasma albumin/glob ulin mass ratioOrdered By: Katalina Velazquez 01-08-2025 Albumin/Globulin [Mass ratio] 1.7 {ratio} 0.9-2.4 [facility] Serum or plasma alkaline dillon sphatase measurementOrdered By: Katalina Velazquez 01-08-2025 ALP [Catalytic activity/Vol] 301 U/L High 35-104 [facility] Serum or plasma calcium lavon urement (mass/volume)Ordered By: Katalina Velazquze 01-08-2025 Calcium [Mass/Vol] 9.4 mg/dL 7.6-11.0 [facility] Serum or plasma cholesterol in HDL measurement (mass/volume)Ordered By: Katalina Velazquez on 01-08-2025 Cholesterol in HDL [Mass/Vol] 57 mg/dL >40 [facility] Comment on above: National Cholesterol Education Program (NCEP) guidelines:<40 mg/dL: Low HDL-cholesterol (major risk factor for CHD)>= 60 mg/dL: High HDL-cholesterol (negative risk factor for CHD)HDL-cholesterol is affected by a number of factors, e.g. smoking, exercise, hormones, sex and age. Serum or plasma cholesterol measurement (mass/volume)Ordered By: Katalina Velazquez on 01-08-2025 Cholesterol [Mass/Vol] 175 mg/dL <201 [facility] Comment on above: Cholesterol level, D esirable <200 mg/dLBorderline high cholesterol 200-239 mg/dLHigh cholesterol >=240 mg/dLRecommendations of the NCEP Adult Treatment Panel for the following risk-cutoff thresholds for the [place] population. Serum or plasma urea nitroge n measurement (mass/volume)Ordered By: Katalina Velazquez on 01-08-2025 Urea nitrogen [Mass/Vol] 16 mg/dL 4-19 [facility] Sodium levelOrdered By: Mike chasedayannakay Velazquez on 01-08-2025 Sodium [Moles/Vol] 140 mmol/L 133-145 [facility] Total proteinOrdered By: Rodger Velazquez on 01-08-2025 Protein [Mass/Vol] 6.3 g/dL 5.9-8.4 [facility] Triglycerides measurementOrd ered By: Katalina Velazquez on 01-08-2025 Triglyceride [Mass/Vol] 103 mg/dL <199 [facility] Comment on above: The drugs N-Acetylcy steine and Metamizole may falsely depress this assay. Normal range: <150 mg/dLBorderline High: 150-199 mg/dLHigh: 200-499 mg/dLVery High: >500 mg/dL Hepatitis Panel Acuteon 12-13 COMMENT Comment Normal . [facility] Comment on above: Result Comment: Not infected with HCV unless early or acute infection is suspected (which may be delayed in an immunocompromised individual), or other evidence exists to indicate HCV infection. Performed at: - [facility] [id number] Carding Machine Operator: Sharad Arreaga PhD, Phone: [phone] Performed By: #### L 501.8300, L3000.0375 ####[facility] [address] [place], [address] HEP B CORE,IgM Negative Normal Negative [facility] Comment on above: Performed By: #### L 501.8300, L3000.0375 ####[facility] [address] [place], [address] HEP B SURF AG Negative Normal Negative [facility] Comment on above: Performed By: #### L 501.8300, L3000.0375 ####[facility] [address] [place], [address] HEP C VIRUS AB Non-Reactive Normal Non Reactive [facility] Comment on above: Performed By: #### L 501.8300, L3000.0375 ####[facility] [address] [place], [place], [id number] HEPATITIS A-IgM Negative Normal Negative [facility] Comment on above: Result Comment: A ne gative anti-HAV IgM result suggests no recent or current HAV infection. Performed By: #### L 501.8300, L3000.0375 ####[facility] [address] [place], [address] Absolute lymphocyte countOrd ered By: Makenzie Gonzáles on 01-05-2025 Lymphocytes Auto (Unsp spec) [#/Vol] 0.27 10*3/uL Low 0.83-4.51 [facility] Absolute neutrophil countOrd ered By: Makenzie Gonzáles on 01-05-2025 Neutrophils (Bld) [#/Vol] 2.7 10*3/uL 2.0-7.7 [facility] Anion gap in Serum or Plasma Ordered By: Makenzie Gonzáles on 01-05-2025 Anion gap [Moles/Vol] 9 mmol/L 5-15 [facility] Automated lymphocyte count a s percentage of total leukocytesOrdered By: Makenzie Gonzáles on 01-05-2025 Lymphocytes/100 WBC Auto (Unsp spec) 8.4 % Low 19-41 [facility] BUN/creatinine ratioOrdered By: Makenzie Gonzáles on 01-05-2025 Urea nitrogen/Creatinine [Mass ratio] 35.3 mg/mg High 10-20 [facility] Basophil percentageOrdered B y: Makenzie Gonzáles on 01-05-2025 Basophils/100 WBC (Bld) 0.3 % 0-1 [facility] Bilirubin, totalOrdered By: Makenzie Gonzáles on 01-05-2025 Bilirubin [Mass/Vol] 0.19 mg/dL 0.00-1.30 [facility] CBC W/Diff, Automatedon 12-13 Absolute Lymph 0.27 X10 3/uL Low 0.83-4.51 [facility] Comment on above: Performed By: #### L 100.0100, L500.4050 #### [facility] Laboratory [address] [place], [address] Absolute Neut 2.7 X10 3/uL Normal 2.0-7.7 [facility] Comment on above: Performed By: #### L 100.0100, L500.4050 #### [facility] [address] [place], [address] Basophils/100 WBC (Bld) 0.3 % Normal 0-1 [facility] Comment on above: Performed By: #### L 100.0100, L500.4050 #### [facility] [address] [place], [address] Eosinophils/100 WBC (Bld) 0.0 % Normal 0-5 [facility] Comment on above: Performed By: #### L 100.0100, L500.4050 #### [facility] [address] [place], [address] Erythrocyte distribution width (RBC) [Ratio] 13.3 % Normal 11.6-14.6 [facility] Comment on above: Performed By: #### L 100.0100, L500.4050 #### [facility] [address] [place], [address] Hematocrit (Bld) [Volume fraction] 34.1 % Low 37-47 [facility] Comment on above: Performed By: #### L 100.0100, L500.4050 #### [facility] [address] [place], [address] Hemoglobin (Bld) [Mass/Vol] 11.6 g/dL Low 12.0-15.0 [facility] Comment on above: Performed By: #### L 100.0100, L500.4050 #### [facility] [address] [place], [address] IG% 0.900 Normal 0.0-0.9 [facility] Comment on above: Result Comment: IG% - Immature Granulocytes (promyelocytes, myelocytes and metamyelocytes) > 1% indicates that a LEFT SHIFT is Present. Performed By: #### L 100.0100, L500.4050 #### [facility] [address] [place], [address] Lymphocytes/100 WBC (Bld) 8.4 % Low 19-41 [facility] Comment on above: Performed By: #### L 100.0100, L500.4050 #### [facility] [address] [place], [address] MCH (RBC) [Entitic mass] 30.9 pg Normal 27.0-32.0 [facility] Comment on above: Performed By: #### L 100.0100, L500.4050 #### [facility] [address] [place], [address] MCHC (RBC) [Mass/Vol] 34.0 g/dL Normal 32-36 [facility] Comment on above: Performed By: #### L 100.0100, L500.4050 #### [facility] [address] [place], [address] MCV (RBC) [Entitic vol] 90.7 fL Normal 81-99 [facility] Comment on above: Performed By: #### L 100.0100, L500.4050 #### [facility] [address] [place], [address] Monocytes/100 WBC (Bld) 6.5 % Normal 0-10 [facility] Comment on above: Performed By: #### L 100.0100, L500.4050 #### [facility] [address] [place], [address] Neutrophils/100 WBC (Bld) 83.9 % High 47-70 [facility] Comment on above: Performed By: #### L 100.0100, L500.4050 #### [facility] [address] [place], [address] Nucleated RBC (Bld) [#/Vol] 0 10*3/uL Normal 0-5 [facility] Comment on above: Performed By: #### L 100.0100, L500.4050 #### [facility] [address] [place], [address] Platelet mean volume (Bld) [Entitic vol] 10.7 fL Normal 6.2-12.0 [facility] Comment on above: Performed By: #### L 100.0100, L500.4050 #### [facility] [address] [place], [address] Platelets (Bld) [#/Vol] 145 10*3/uL Low 150-450 [facility] Comment on above: Performed By: #### L 100.0100, L500.4050 #### [facility] [address] [place], [address] RBC (Bld) [#/Vol] 3.76 10*6/uL Low 4.2-5.4 [facility] [facility] Comment on above: Performed By: #### L 100.0100, L500.4050 #### [facility] Laboratory [address] [place], [address] RDW SD 44.1 fl High 35.1-43.9 [facility] Comment on above: Performed By: #### L 100.0100, L500.4050 #### [facility] [address] [place], [address] WBC (Bld) [#/Vol] 3.2 10*3/uL Low 4.4-11.0 [facility] Comment on above: Performed By: #### L 100.0100, L500.4050 #### [facility] [address] [place], [address] Carbon dioxide, total [Moles /volume] in Central venous bloodOrdered By: Makenzie Gonzáles on 01-05-2025 CO2 [Moles/Vol] 17.1 mmol/L Low 21.0-32.0 [facility] Chloride assayOrdered By: Brianne Gonzáles on 01-05-2025 Chloride [Moles/Vol] 109 mmol/L High 98-108 [facility] Comprehensive Metabolic Prof ilon 01-05-2025 Albumin [Mass/Vol] 3.3 g/dL Low 3.4-4.8 [facility] Comment on above: Performed By: #### L 100.0100, L500.4050 #### [facility] [address] [place], [address] Albumin/Globulin [Mass ratio] 1.8 {ratio} Normal 0.9-2.4 [facility] Comment on above: Performed By: #### L 100.0100, L500.4050 #### [facility] [address] [place], [address] ALK PHOS 186 U/L High 35-104 [facility] Comment on above: Performed By: #### L 100.0100, L500.4050 #### [facility] [address] [place], [address] ALT [Catalytic activity/Vol] 494 U/L High <=34 [facility] Comment on above: Performed By: #### L 100.0100, L500.4050 #### [facility] [address] [place], [address] AST [Catalytic activity/Vol] 324 U/L High <=31 [facility] Comment on above: Performed By: #### L 100.0100, L500.4050 #### [facility] [address] [place], [address] Bilirubin [Mass/Vol] 0.19 mg/dL Normal 0.00-1.30 [facility] Comment on above: Performed By: #### L 100.0100, L500.4050 #### [facility] [address] [place], [address] BUN/CRE 35.3 RATIO High 10-20 [facility] Comment on above: Performed By: #### L 100.0100, L500.4050 #### [facility] [address] [place], [address] Calcium [Mass/Vol] 7.2 mg/dL Low 7.6-11.0 [facility] Comment on above: Performed By: #### L 100.0100, L500.4050 #### [facility] [address] [place], [address] Chloride [Moles/Vol] 109 mmol/L High 98-108 [facility] Comment on above: Performed By: #### L 100.0100, L500.4050 #### [facility] [address] [place], [address] CO2 [Moles/Vol] 17.1 mmol/L Low 21.0-32.0 [facility] Comment on above: Performed By: #### L 100.0100, L500.4050 #### [facility] Laboratory [address] [place], [address] Creatinine [Mass/Vol] 0.60 mg/dL Low 0.70-1.20 [facility] Comment on above: Performed By: #### L 100.0100, L500.4050 #### [facility] [address] [place], [address] ECRCL 55.52 ml/min Normal 50-250 [facility] Comment on above: Performed By: #### L 100.0100, L500.4050 #### [facility] [address] [place], [address] GAP 9 Normal 5-15 [facility] Comment on above: Performed By: #### L 100.0100, L500.4050 #### [facility] [address] [place], [address] GFR/1.73 sq M.predicted among non-blacks MDRD (S/P/Bld) [Vol rate/Area] 94 mL/min/{1.73_m2} Normal >60 [facility] Comment on above: Result Comment: mL/m in/1.73m2 CKD-EPI Creatinine Equation (2020) Performed By: #### L 100.0100, L500.4050 #### [facility] [address] [place], [address] Globulin (S) [Mass/Vol] 1.8 g/dL Low 2.2-4.2 [facility] Comment on above: Performed By: #### L 100.0100, L500.4050 #### [facility] [address] [place], [address] Glucose [Mass/Vol] 127 mg/dL High 70-99 [facility] Comment on above: Performed By: #### L 100.0100, L500.4050 #### [facility] [address] [place], [address] Potassium [Moles/Vol] 4.0 mmol/L Normal 3.3-5.1 [facility] Comment on above: Performed By: #### L 100.0100, L500.4050 #### [facility] [address] [place], [address] Sodium [Moles/Vol] 135 mmol/L Normal 133-145 [facility] Comment on above: Performed By: #### L 100.0100, L500.4050 #### [facility] [address] [place], [address] T PROT 5.1 g/dL Low 5.9-8.4 [facility] Comment on above: Performed By: #### L 100.0100, L500.4050 #### [facility] [address] [place], [address] Urea nitrogen [Mass/Vol] 21 mg/dL High 4-19 [facility] Comment on above: Performed By: #### L 100.0100, L500.4050 #### [facility] Laboratory [address] [place], [address] Discharge Instructionon 12-13 Discharge Instruction [facility] Medical Records Department [address] [place] [address] Instructions for Home/Discharge Instructions 01/05/25 1459 MR#: [id number] Acct: [id number] Name: ZEE RAMIREZ Rep #: [id number] : 1950 74 From: Parveen Mosqueda DO PCP: Dr. Katalina Velazquez MD Status:ADM IN Discharge Instructions Diet Discharge Diet: No restrictions (Resume previous diet) DC O2, CPAP, BIPAP needs Home O2 Discharge instructions: No Dressing / Incision Discharge Activity: Return to Normal Activity Weight Bearing Status: Full weight bearing Follow Up Care Test Results: Test results from this visit will be discussed in further detail at your follow-up appointment, if applicable. Discharge Plan Admission Admit Date/Time: 01/04/25 16:08 Primary Reason for Your Visit: Hypovolemic shock, shock liver Attending Provider: Parveen Mosqueda Primary Care Provider: Katalina Velazquez Consulting Providers: Makenzie Gonzáles Instructions Additional Instructions / Restrictions: Get your liver profile rechecked on Wednesday01/08/25 Discharge Orders/Prescriptions Prescriptions: Continued PreserVision AREDS [phone] capsule 1 cap PO BID cholecalciferol (vitamin D3) 25 mcg (1,000 unit) capsule 25 mcg PO DAILY denosumab 60 mg/mL syringe 60 mg subcut [id number] Qty: 1 1RF hydroxyzine HCl 25 mg tablet 25 mg PO BID PRN (Reason: anxiety) Qty: 60 1RF gabapentin 100 mg capsule 100 mg PO TID PRN (Reason: NERVE PAIN) calcium carbonate 600 MG tablet 1,200 mg PO DAILY L. acidophilus-L. rhamnosus 1 EACH capsule 1 ea PO DAILY dicyclomine 20 mg tablet 20 mg PO BID PRN (Reason: abdominal pain) 7 Days Qty: 14 0RF duloxetine [Cymbalta] 30 mg capsule,delayed release(DR/EC) 60 mg PO QHS Rx Instructions: TAKE 1 CAP IN AM, 2 CAPS QHS cyclosporine [Restasis] 0.05 % dropperette 1 drp ophthalmic (eye) Q12H cholestyramine (with sugar) 4 gram powder in packet 4 g PO QHS PRN (Reason: diarrhea) duloxetine 30 mg capsule,delayed release(DR/EC) 30 mg PO DAILY Rx Instructions: TAKE 1 CAP IN AM, 2 CAPS QHS vitamin E 268 mg (400 unit) capsule 268 mg PO DAILY bupropion HCl 150 mg tablet extended release 24 hr 150 mg PO DAILY Qty: 90 1RF Creon 36,000-114,000- 180,000 unit capsule,delayed release(DR/EC) 1 cap PO TID Qty: 320 11RF Rx Instructions: administer with meals and/or snacks Referrals / Follow Up: Katalina Velazquez MD [Primary Care Provider] - See Referral Note (At next office visit) Disposition Disposition (needs filled in before D/C Order can be placed): Home, Self Care 01/05/25 8324 Parveen Mosqueda CC: Dr. Katalina Velazquez MD; Dr. Makenzie Gonzáles MD Signed Normal [facility] ENTERIC PATHOGEN PANEL STOOL on 01-05-2025 EP PANEL Normal Reference Ran ge = Not Detected Nucleic acid amplification test method Not detected for Campylobacter group, Salmonella species, Shigella species, Vibrio Group, Yersinia enterocolitica, EHEC (Shiga Toxin 1, Shiga Toxin 2), Norovirus Gl/Gll, and Rotavirus A. Other common stool pathogens are not detected on this panel include: Aeromonas/Plesiomonas or parasites. Order testing for these organisms separately if suspected. This is an amplified DNA test which makes it both specific and sensitive. CAMPYLOBACTER Not Detected Norovirus Not Detected Rotavirus Not Detected Salmonella Not Detected Shiga Toxin Not Detected Shigella sp. Not Detected VIBRIO Not Detected Yersinia Not Detected * This is an amended result. * A prior result that was reported as final has been changed. 01/05/25 1205 [facility] Normal [facility] Comment on above: Performed By: #### M 100.0605, L400.0001, M100.6796, M100.637 ####[facility] [address] [place], [address] Eosinophil percentageOrdered By: Makenzie Gonzáles on 01-05-2025 Eosinophils/100 WBC (Bld) 0.0 % 0-5 [facility] Erythrocyte distribution wid th (RBC) [Ratio]Ordered By: Makenzie Gonzáles on 01-05-2025 Erythrocyte distribution width (RBC) [Entitic vol] 44.1 fL High 35.1-43.9 [facility] Erythrocyte distribution wid th ratioOrdered By: Makenzie Gonzáles on 01-05-2025 Erythrocyte distribution width (RBC) [Ratio] 13.3 % 11.6-14.6 [facility] Erythrocyte distribution wid th standard deviationOrdered By: Makenzie Gonzáles on 01-05-2025 Erythrocyte distribution width (RBC) [Ratio] 44.1 fl High 35.1-43.9 [facility] Estimation of creatinine neena aranceOrdered By: Makenzie Gonzáles on 01-05-2025 Estimated Creatinine Clearance Calc 55.52 ml/min 50-250 [facility] GFR/1.73 sq M.predicted dylan g non-blacks MDRD (S/P/Bld) [Vol rate/Area]Ordered By: Makenzie Gonzáles on 01-05-2025 Estimated GFR (MDRD) Non-Af Amer 94 >60 [facility] Comment on above: mL/min/1.73m2 CKD-EP I Creatinine Equation (2020) Glomerular filtration rate ( GFR) estimation/1.73 sq m using serum, plasma, or whole bOrdered By: Makenzie Gonzáles on 01-05-2025 GFR/1.73 sq M.predicted among non-blacks MDRD (S/P/Bld) [Vol rate/Area] 94 mL/min/{1.73_m2} >60 [facility] Comment on above: mL/min/1.73m2 CKD-EP I Creatinine Equation (2020) Hematocrit Auto (Bld) [Volum e fraction]Ordered By: Makenzie Gonzáles on 01-05-2025 Hematocrit (Bld) [Volume fraction] 34.1 % Low 37-47 [facility] Hemoglobin measurementOrdere d By: Makenzie Gonzáles on 01-05-2025 Hemoglobin (Bld) [Mass/Vol] 11.6 g/dL Low 12.0-15.0 [facility] Immature granulocytes/100 WB C Auto (Bld)Ordered By: Makenzie Gonzáles on 01-05-2025 Immature granulocytes/100 WBC (Bld) 0.900 % 0.0-0.9 [facility] Comment on above: IG% - Immature Granu locytes (promyelocytes, myelocytes and metamyelocytes) > 1% indicates that a LEFT SHIFT is Present. Laboratory - Chemistry and C hemistry - challengeOrdered By: Makenzie Gonzáles on 01-05-2025 AST [Catalytic activity/Vol] 324 U/L High <32 [facility] Lymphocytes Auto (Unsp spec) [#/Vol]Ordered By: Makenzie Gonzáles on 01-05-2025 Lymphocytes (Bld) [#/Vol] 0.27 10*3/uL Low 0.83-4.51 [facility] Lymphocytes/100 WBC Auto (Un sp spec)Ordered By: Makenzie Gonzáles on 01-05-2025 Lymphocytes/100 WBC (Bld) 8.4 % Low 19-41 [facility] MCV (mean corpuscular volume ) determinationOrdered By: Makenzie Gonzáles on 01-05-2025 MCV (RBC) [Entitic vol] 90.7 fL 81-99 [facility] Mean corpuscular hemoglobin (MCH) determinationOrdered By: Makenzie Gonzáles on 01-05-2025 MCH (RBC) [Entitic mass] 30.9 pg 27.0-32.0 [facility] Mean corpuscular hemoglobin concentration (MCHC) determinationOrdered By: Makenzie Gonzáles on 01-05-2025 MCHC (RBC) [Mass/Vol] 34.0 g/dL 32-36 [facility] Mean platelet volume determi nationOrdered By: Makenzie Gonzáles on 01-05-2025 Platelet mean volume (Bld) [Entitic vol] 10.7 fL 6.2-12.0 [facility] Monocyte percentageOrdered B y: Makenzie Gonzáles on 01-05-2025 Monocytes/100 WBC (Bld) 6.5 % 0-10 [facility] Neutrophil percentageOrdered By: Makenzie Gonzáles on 01-05-2025 Neutrophils/100 WBC (Bld) 83.9 % High 47-70 [facility] Nucleated red blood cell per centageOrdered By: Makenzie Gonzáles on 01-05-2025 Nucleated RBC/100 WBC (Bld) [Ratio] 0 % 0-5 [facility] Platelet countOrdered By: Brianne Gonzáles on 01-05-2025 Platelets (Bld) [#/Vol] 145 10*3/uL Low 150-450 [facility] Potassium (Unsp spec) [Mass/ Vol]Ordered By: Makenzie Gonzáles on 01-05-2025 Potassium [Moles/Vol] 4.0 mmol/L 3.3-5.1 [facility] Potassium measurement (mass/ volume)Ordered By: Makenzie Gonzáles on 01-05-2025 Potassium (Unsp spec) [Mass/Vol] 4.0 mmol/L 3.3-5.1 [facility] RBC Auto (Bld) [#/Vol]Ordere d By: Makenzie Gonzáles on 01-05-2025 RBC (Bld) [#/Vol] 3.76 10*6/uL Low 4.2-5.4 [facility] RESPIRATORY PANEL MOLECULARo n 01-05-2025 RP PANEL ADENOVIRUS Not Detected INFLUENZA A Not Detected INFLUENZA A (SUBTYPE H1) Not Detected INFLUENZA A (SUBTYPE H3) Not Detected INFLUENZA B Not Detected HUMAN METAPHNEUMO Not Detected PARAINFLUENZA 1 Not Detected PARAINFLUENZA 2 Not Detected PARAINFLUENZA 3 Not Detected PARAINFLUENZA 4 Not Detected RHINOVIRUS Not Detected RSV A Not Detected RSV B Not Detected Normal [facility] Comment on above: Performed By: #### M 100.638 ####[facility] [address] [place], [place], [id number] Serum creatinine measurement (mass/volume)Ordered By: Makenzie Gonzáles on 01-05-2025 Creatinine [Mass/Vol] 0.60 mg/dL Low 0.70-1.20 [facility] Serum globulin measurementOr dered By: Makenzie Gonzáles on 01-05-2025 Globulin (S) [Mass/Vol] 1.8 g/dL Low 2.2-4.2 [facility] Serum glucose measurement (m ass/volume)Ordered By: Makenzie Gonzáles on 01-05-2025 Glucose [Mass/Vol] 127 mg/dL High 70-99 [facility] Serum or plasma alanine boyle otransferase (ALT) measurementOrdered By: Makenzie Gonzáles on 01-05-2025 ALT [Catalytic activity/Vol] 494 U/L High <35 [facility] Serum or plasma albumin lavon urement (mass/volume)Ordered By: Makenzie Gonzáles on 01-05-2025 Albumin [Mass/Vol] 3.3 g/dL Low 3.4-4.8 [facility] Serum or plasma albumin/glob ulin mass ratioOrdered By: Makenzie Gonzáles on 01-05-2025 Albumin/Globulin [Mass ratio] 1.8 {ratio} 0.9-2.4 [facility] Serum or plasma alkaline dillon sphatase measurementOrdered By: Makenzie Gonzáles on 01-05-2025 ALP [Catalytic activity/Vol] 186 U/L High 35-104 [facility] Serum or plasma calcium lavon urement (mass/volume)Ordered By: Makenzie Gonzáles on 01-05-2025 Calcium [Mass/Vol] 7.2 mg/dL Low 7.6-11.0 [facility] Serum or plasma urea nitroge n measurement (mass/volume)Ordered By: Makenzie Gonzáles on 01-05-2025 Urea nitrogen [Mass/Vol] 21 mg/dL High 4-19 [facility] Sodium levelOrdered By: Bartolo Gonzáles on 01-05-2025 Sodium [Moles/Vol] 135 mmol/L 133-145 [facility] Total proteinOrdered By: Primitivo Gonzáles on 01-05-2025 Protein [Mass/Vol] 5.1 g/dL Low 5.9-8.4 [facility] White blood cell (WBC) count Ordered By: Makenzie Gonzáles on 01-05-2025 WBC (Bld) [#/Vol] 3.2 10*3/uL Low 4.4-11.0 [facility] Acetaminophen (Tylenol) Leve yancy 01-04-2025 Acetaminophen [Mass/Vol] ug/mL Low 8.0-19.0 [facility] Comment on above: Result Comment: Acet aminophen concentrations > 200 ug/mL four hours after ingestion, > 100 ug/mL eight hours after ingestion, and > 50 ug/mL 12 hours after ingestion are potentially toxic. Performed By: #### L 501.8400, L300.3900, L501.9520 #### [facility] Laboratory [facility] [place], [address] Acetaminophen [Mass/Vol]Orde red By: Makenzie Gonzáles on 01-04-2025 Acetaminophen Level < 5.0 ug/mL Low 8.0-19.0 [facility] Comment on above: Acetaminophen concen trations > 200 ug/mL four hours after ingestion, > 100 ug/mL eight hours after ingestion, and > 50 ug/mL 12 hours after ingestion are potentially toxic. Basic Metabolic Profile (BMP )on 01-04-2025 BUN/CRE 29.0 RATIO High 10-20 [facility] Comment on above: Performed By: #### L 501.3620, L501.2450, L500.2500, L500.3400 ####[facility] [address] [place], [address] Calcium [Mass/Vol] 8.2 mg/dL Normal 7.6-11.0 [facility] Comment on above: Performed By: #### L 501.3620, L501.2450, L500.2500, L500.3400 ####[facility] [address] [place], [address] Chloride [Moles/Vol] 104 mmol/L Normal 98-108 [facility] Comment on above: Performed By: #### L 501.3620, L501.2450, L500.2500, L500.3400 ####[facility] [address] [place], [address] CO2 [Moles/Vol] 19.2 mmol/L Low 21.0-32.0 [facility] Comment on above: Performed By: #### L 501.3620, L501.2450, L500.2500, L500.3400 ####[facility] [address] [place], [address] Creatinine [Mass/Vol] 0.90 mg/dL Normal 0.70-1.20 [facility] Comment on above: Performed By: #### L 501.3620, L501.2450, L500.2500, L500.3400 ####[facility] [address] [place], [address] ECRCL 49.35 ml/min Low 50-250 [facility] Comment on above: Performed By: #### L 501.3620, L501.2450, L500.2500, L500.3400 ####[facility] [address] [place], [address] GAP 12 Normal 5-15 [facility] Comment on above: Performed By: #### L 501.3620, L501.2450, L500.2500, L500.3400 ####[facility] [address] [place], [address] GFR/1.73 sq M.predicted among non-blacks MDRD (S/P/Bld) [Vol rate/Area] 67 mL/min/{1.73_m2} Normal >60 [facility] Comment on above: Result Comment: mL/m in/1.73m2 CKD-EPI Creatinine Equation (2020) Performed By: #### L 501.3620, L501.2450, L500.2500, L500.3400 ####[facility] [address] [place], [address] Glucose [Mass/Vol] 93 mg/dL Normal 70-99 [facility] Comment on above: Performed By: #### L 501.3620, L501.2450, L500.2500, L500.3400 ####[facility] [address] [place], [address] Potassium [Moles/Vol] 3.7 mmol/L Normal 3.3-5.1 [facility] Comment on above: Result Comment: Hemo lysis present, Results??could be affected. ?? Performed By: #### L 501.3620, L501.2450, L500.2500, L500.3400 ####[facility] [address] [place], [address] Sodium [Moles/Vol] 135 mmol/L Normal 133-145 [facility] Comment on above: Performed By: #### L 501.3620, L501.2450, L500.2500, L500.3400 ####[facility] [address] [place], [address] Urea nitrogen [Mass/Vol] 26 mg/dL High 12-30 [facility] Comment on above: Performed By: #### L 501.3620, L501.2450, L500.2500, L500.3400 ####[facility] [address] [place], [address] Bilirubin Test strip Ql (U)O rdered By: Radha Elias on 01-04-2025 Bilirubin Ql (U) 1 mg/dL High Negative [facility] Comment on above: COLOR OF URINE MAY A FFECT DIPSTICK RESULTS. Bilirubin directOrdered By: Radha Elias on 01-04-2025 Bilirubin.direct [Mass/Vol] 0.23 mg/dL 0.00-0.30 [facility] Comment on above: Hemolysis present, R esults could be affected. Blood manual differential co mment interpretation (narrative result)Ordered By: Radha Elias on 01-04-2025 Manual differential comment Rodrigo (Bld) [Interp] COMMENT [facility] Comment on above: LYMPHOPENIA. C. difficile DNA OUMAR+probe Q l (Unsp spec)Ordered By: Radha Elias on 01-04-2025 Clostridioides difficile (PCR) [facility] CBC W/Diff, Automatedon - SMEAR COMMENT COMMENT Normal [facility] Comment on above: Result Comment: LYMP HOPENIA. Performed By: #### L 501.8400, L300.3900, L501.9520 #### [facility] Laboratory [address] [place], [place], [id number] CDIFF (PCR)on 01-04-2025 CDIFF Pending 027 [id number] NAP1-B1 Presumptive Negative *for epidemiolologic???use C. Diff PCR Negative- No toxigenic C. Diff Detected Normal [facility] Comment on above: Performed By: #### M 100.0605, L400.0001, M100.6796, M100.637 ####[facility] [address] [place], [address] COVID 19 AG RAPID ([address])on 01-04-2025 SARS-CoV-2 (COVID-19) RNA OUMAR+probe Ql (Unsp spec) *Negative results from patients with symptom onset beyond five days should be treated as presumptive and confirmed by a molecular assay if clinically necessary. Negative results should not be used as the sole basis for treatment or for patient management. SARS-CoV-2 Ag Resp Ql IA.rapid *Positive results do not differentiate between SARS-CoV and SARS-CoV-2. If differentiation of the specific SARS virus is desired an additional sample and an additional order is required. SARS-CoV-2 Ag Resp Ql IA.rapid * This test has not been FDA cleared or approved; the test has been authorized by FDA under an Emergency Use Authorization (EAU) for use by laboratories certified under CLIA that meet the requirements to perform moderate, high, or waived complexity tests. SARS-CoV-2 Ag Resp Ql IA.rapid Normal Reference Range: Negative SARS-CoV-2 (COVID 19) Negative RAPID METHOD [employer] COVID19 Ag Card Normal [facility] Comment on above: Performed By: #### L 100.0100, L500.4050 #### [facility] Laboratory [address] [place], [address] COVID-19 virus antigen assay Ordered By: Makenzie Gonzáles on 01-04-2025 SARS-CoV-2 (COVID-19) Ag IA.rapid Ql (Resp) [facility] CPK Total, Creatine Kinaseon 01-04-2025 CPK TOTAL 65 U/L Normal [facility] Comment on above: Performed By: #### L 501.3620 ####[facility] [address] [place], [address] CPK TOTAL 68 U/L Normal - [facility] Comment on above: Performed By: #### L 501.3620, L501.2450, L500.2500, L500.3400 ####[facility] [address] [place], [address] Clostridium difficile detect ion by polymerase chain reactionOrdered By: Radha Elias on 01-04-2025 C. difficile DNA OUMAR+probe Ql (Unsp spec) [facility] Emergency Department Summary on 01-04-2025 Emergency Department Summary [facility] Medical Records Department [address] [place] [address] Emergency Department Summary 01/04/25 MR#: [id number] Acct: [id number] Name: ZEE RAMIREZ Rep #: [id number] : 1950 74 From: Radha Elias DO PCP: Dr. Katalina Velazquez MD Status:ADM IN Location: MS3 [id number] HPI History of Present Illness Chief Complaint: General Illness Informant: patient Narrative Narrative: Patient 74-year-old female with history of degenerative disc disease, cervical myelopathy, headaches, fibromyalgia, chronic hip pain, exocrine pancreatic insufficiency and prior C. difficile presenting with with diarrhea, generalized weakness, numbness and tingling of her hands and around her face as well as increased neck pain and headache. Patient states she had diarrhea all day yesterday. She states her legs are so weak she felt she could not walk. She has associated nausea but no vomiting. Overnight she notes that her back pain which had been worsening seem to be okay but she continued have diarrhea. She developed bilateral neck pain that she describes as electrical pulsing sensation that is rapidfire. She notes it is now moved into more of a frontal headache but she continues to have neck pain. She developed numbness and tingling and heaviness of her arms and the numbness and tingling around her mouth and her chin today. She came in for further evaluation. States that when she has to have a bowel movement she has to go very quickly and has had some stool incontinence because of this. Denies any black or blood in her stool. No she did have a heavy meal on Wednesday (4 days ago) for Easter but had been doing fine until yesterday. States this does not feel like when she had C. difficile. Does note that she took her blood pressure at home and it was low. She denies any recent medication changes. Does follow with Dr. Coyle, for pain management, Dr. Smith for spine and Dr. Spencer for GI. [facility] Medical History Degenerative disc disease Fibromyoma Depression Former smoker Coronary artery disease At high risk for cardiovascular disease Localized swelling, mass and lump, neck Blister of gingiva with infection Submandibular lymphadenopathy Screening for cardiovascular condition Degenerative cervical disc Flu vaccine need Ulnar neuropathy of right upper extremity Chronic neck pain Allergic rhinosinusitis Allergic conjunctivitis Acute conjunctivitis, unspecified Varicose veins of bilateral lower extremities with pain Chronic back pain Anxiety and depression Hx of headache H/O emotional problems Hx of cataract History of back problems Allergies Urinary tract infection with hematuria Positive P-ANCA titer Osteoarthritis Breast lump Arthritis Left knee pain Hypokalemia Hypocalcemia De Quervain's tenosynovitis Anxiety Acute kidney injury TMJ arthralgia Right knee pain Mass of urinary bladder EIC (epidermal inclusion cyst) Depressive disorder Coronary artery calcification Calcification of abdominal aorta Atypical chest pain Epigastric pain Umbilical hernia Retroperitoneal lymphadenopathy Panic disorder Normocytic anemia Lumbar back pain IBS (irritable bowel syndrome) Hydronephrosis Elevated liver enzymes Diverticulitis Osteoporosis Fibromyalgia Home Medications ???Medication ???Instructions ???Recorded ???Last Taken ???Type calcium carbonate 1,200 mg PO DAILY 07/07/19 5 History Lactobacillus acidophilus and 1 ea PO DAILY 09/09/19 01/04/25 Hi story rhamnosus 15 billion cell capsule vitamins A,C,J-tadm-qwkcsa 4,296 1 cap PO BID 12/19/21 01/04/25 His tory mcg-226 mg-90 mg capsule (PreserVision AREDS) dicyclomine 20 mg tablet 20 mg PO BID PRN abdominal pain 7 07/25/23 Unknown Rx days #14 tabs cholecalciferol (vitamin D3) 25 25 mcg PO DAILY 07/30/23 01/04/25 History mcg (1,000 unit) capsule comp.stocking,thigh,long,s mall #2 ea 12/16/23 Unknown Rx hydroxyzine HCl 25 mg tablet 25 mg PO BID PRN anxiety #60 tabs 06/12/24 Unknown Rx gabapentin 100 mg capsule 100 mg PO TID PRN NERVE PAIN 07/13 Unknown History denosumab 60 mg/mL subcutaneous 60 mg subcut [id number] #1 mL 08/14/24 Rx syringe bupropion HCl 150 mg 24 hr tablet, 150 mg PO DAILY #90 tabs 5 01/04/25 Rx extended release pblwjr-htiidxyw-exhjlst 1 cap PO TID #320 caps 10/25/24 Rx 36,000-114,000-180,000 unit capsule,delay rel (Creon) cholestyramine (with sugar) 4 gram 4 g PO QHS PRN diarrhea 01/04/25 Unknown History powder for susp in a packet cyclosporine 0.05 % eye drops in a 1 drp ophthalmic (eye) Q12H 12/1301/04/25 History dropperette (Restasis) duloxetine 30 mg capsule,delayed 30 mg PO DAILY 01/04/25 01/04/25 H (more content not included)... Normal [facility] Epithelial cells.squamous LM Ql (Urine sed)Ordered By: Radha Elias on 01-04-2025 Epithelial cells.squamous LM.HPF (Urine sed) [#/Area] 0 /[HPF] 5-10 [facility] Glucose Ql (U)Ordered By: Chepe Elias on 01-04-2025 Urine Glucose (UA) Normal mg/dl Normal [facility] H AND P Exam - Hospitaliston 01-04-2025 H&P Exam - Hospitalist [facility] Medical Records Department [address] [place] [address] H P Exam - Hospitalist 01/04/25 1607 MR#: [id number] Acct: [id number] Name: ZEE RAMIREZ Rep #: [id number] : 1950 74 From: Makenzie Gonzáles MD PCP: Dr. Katalina Velazquez MD Status:REG ER Location: ED HPI - General General Date of Admission: 01/04/25 Date of Service: 01/04/25 Chief Complaint: Neck pain, diarrhea, generalized weakness HPI Narrative ZEE RAMIREZ, is a 74-year-old female history of degenerative disc disease, fibromyalgia, pancreatic insufficiency, anxiety and depression who presented [facility] ED 01/04/2025 for diarrhea, generalized weakness, and numbness and tingling of her hands and around her face as well as increased neck pain and headache. She has had diarrhea all day yesterday and feels so weak that she cannot walk. Has also had some nausea but no vomiting. Also has worsening of her chronic back and neck pain. Having posterior headache as well as arm heaviness. Patient does follow with Dr. Coyle for pain management, Dr. Smith for orthospine, and Dr. Spencer for GI. In the ED patient afebrile with a blood pressure 100/58, 100% on room air with respiratory rate of 20 and heart rate of 79. CBC demonstrated a white blood cell count of 3.2, hemoglobin 15.1 and BMP with a creatinine of 0.90 and BUN of 26, slightly up from baseline but not significantly so. Lactic acid also 2.2. Liver panel revealed new elevations in liver function with an AST of 910, ALT 889, and alk phos of 269. Hepatitis panel ordered and is pending, salicylate negative, liver ultrasound only demonstrated fatty infiltration of the liver and previous cholecystectomy. Given pts new and significant liver function elevations hospitalist contacted for admission. Patient evaluated at bedside reports that she is here because she is concerned about the neck pain that starts in her neck and goes up her head and started as a zap and out intermittently will have some pulsing pain, reports she feels like her arms and lower face have some numbness though it is better than when she came in, reports that yesterday she had increase in her chronic lower back pain with numbness in her feet but this is back to baseline, the diarrhea started yesterday and she has had many episodes, had 1 earlier when she arrived but has not in the past couple of hours, little bit of generalized abdominal pain. When asked if she has any lightheadedness she reports she feels off balance. Denies any fevers, no change in urination. [facility] Medical History (Updated 01/04/25 @ 16:[address] Makenzie Gonzáles MD) Acute conjunctivitis, unspecified Acute kidney injury Allergic conjunctivitis Allergic rhinosinusitis Allergies Anxiety Anxiety and depression Arthritis At high risk for cardiovascular disease Atypical chest pain Blister of gingiva with infection Breast lump Calcification of abdominal aorta Chronic back pain Chronic neck pain Coronary artery calcification Coronary artery disease De Quervain's tenosynovitis Degenerative cervical disc Degenerative disc disease Depression Depressive disorder Diverticulitis EIC (epidermal inclusion cyst) Elevated liver enzymes Epigastric pain Fibromyalgia Fibromyoma Flu vaccine need Former smoker H/O emotional problems History of back problems Hx of cataract Hx of headache Hydronephrosis Hypocalcemia Hypokalemia IBS (irritable bowel syndrome) Left knee pain Localized swelling, mass and lump, neck Lumbar back pain Mass of urinary bladder Normocytic anemia Osteoarthritis Osteoporosis Panic disorder Positive P-ANCA titer Retroperitoneal lymphadenopathy Right knee pain Screening for cardiovascular condition Submandibular lymphadenopathy 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 Umbilical hernia Urinary tract infection with hematuria Varicose veins of bilateral lower extremities with pain Home Medications ???Medication ???Instructions ???Recorded ???Last Taken ???Type calcium carbonate 1,200 mg PO DAILY 07/07/19 5 History Lactobacillus acidophilus and 1 ea PO DAILY 09/09/19 01/04/25 Hi story rhamnosus 15 billion cell capsule vitamins A,C,I-eyco-rfcdpo 4,296 1 cap PO BID 12/19/21 01/04/25 His tory mcg-226 mg-90 mg capsule (PreserVision AREDS) dicyclomine 20 mg tablet 20 mg PO BID PRN abdominal pain 7 07/25/23 Unknown Rx days #14 tabs cholecalciferol (vitamin D3) 25 25 mcg PO DAILY 07/30/23 01/04/25 History mcg (1,000 unit) capsule comp.stocking,thigh,long,s mall #2 ea 12/16/23 Unknown Rx hydroxyzine HCl 25 mg tablet 25 mg PO BID PRN anxiety #60 tabs 06/12/24 Unknown Rx gabapentin 100 mg capsule 100 mg PO TID PRN NERVE PAIN 07/13 Unknown History denosumab 60 mg/mL subcutaneous 60 mg subcut Q6M (more content not included)... Normal [facility] International normalized rat io (INR) calculationOrdered By: Makenzie Gonzáles on 01-04-2025 INR Coag (Bld) [Relative time] 1.3 {INR} [facility] Ketones Test strip Ql (U)Ord ered By: Radha Elias on 01-04-2025 Ketones Ql (U) 15 mg/dl High Negative [facility] Lactic Acidon 01-04-2025 Lactate [Moles/Vol] 1.2 mmol/L Normal 0.0-2.0 [facility] Comment on above: Performed By: #### L 501.8400, L300.3900, L501.9520 #### [facility] Laboratory [address] [place], [address] Lactate [Moles/Vol] 2.2 mmol/L Invalid Interpretation Code 0.0-2.0 [facility] Comment on above: Order Comment: Y Result Comment: Crit ical Result(s) Called at 1142: by: NEREYDA CADE TO [facility]. ??Results read back by same. Performed By: #### L 501.8400, L300.3900, L501.9520 #### [facility] [address] [place], [address] Lactic acid measurementOrder ed By: Radha Elias on 01-04-2025 Lactate [Moles/Vol] 1.2 mmol/L 0.0-2.0 [facility] Lactoferrin IA Ql (Stl)Order ed By: Radha Elias on 01-04-2025 Stool Lactoferrin [facility] Lipaseon 01-04-2025 Lipase [Catalytic activity/Vol] 15 U/L Normal 13-75 [facility] Comment on above: Result Comment: Plea se note: LIPASE revised reference range effective 22. New Lipase methodology. Expected to produce lower values than the previous assay method. NEW Reference Range: 13 - 75 U/L Performed By: #### L 501.3620, L501.2450, L500.2500, L500.3400 ####[facility] [address] [place], [place], [id number] Lipase measurementOrdered By : Radha Elias on 01-04-2025 Lipase [Catalytic activity/Vol] 15 U/L 13-75 [facility] Comment on above: Please note:LIPASE r evised reference range effective 22. New Lipase methodology. Expected to produce lower values than the previous assay method. NEW Reference Range: 13 - 75 U/L Liveron 01-04-2025 Liver [facility] Imaging Services [address] [place], [place] [id number] Liver MR#: [id number] Acct: [id number] Name: ZEE RAMIREZ Rep #: [id number] : 1950 F 74 From: Kei yeboah MD PCP: Dr. Katalina Velazquez MD Status: REG ER Study: Liver Date of Exam: 01/04/25 Exam# [id number] Ordering Dr: Radha Elias DO PROCEDURE: LIVER 01/04/2025 REASON FOR EXAM: ACUTE TRANSAMINITIS COMPARISON: None FINDINGS: Liver: Diffusely echogenic suggesting fatty infiltration. Gallbladder: Surgically absent. Common bile duct: Normal measuring 5.5 mm . Pancreas: Normal Other: Visualized portions of the right kidney are unremarkable. Findings suggestive of a 9 mm x 6 mm x 5 mm nonobstructive intrarenal calculus. No right upper quadrant ascites. US/Liver IMPRESSION: Fatty infiltration of the liver. Status post cholecystectomy. Nonobstructive 9 mm x 6 mm right intrarenal calculus. Reading Location: [facility]--1 CC: Dr. Radha Elias DO; Dr. 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, [address] ALK PHOS 269 U/L High 35-104 [facility] Comment on above: Performed By: #### L 501.3620, L501.2450, L500.2500, L500.3400 ####[facility] [address] [place], [address] ALT [Catalytic activity/Vol] 889 U/L High <=34 [facility] Comment on above: Performed By: #### L 501.3620, L501.2450, L500.2500, L500.3400 ####[facility] [address] [place], [address] AST [Catalytic activity/Vol] 910 U/L High <=31 [facility] Comment on above: Result Comment: Hemo lysis present, Results??could be affected. ?? Performed By: #### L 501.3620, L501.2450, L500.2500, L500.3400 ####[facility] [address] [place], [address] Bilirubin [Mass/Vol] 0.55 mg/dL Normal 0.00-1.30 [facility] Comment on above: Performed By: #### L 501.3620, L501.2450, L500.2500, L500.3400 ####[facility] [address] [place], [address] Bilirubin.direct [Mass/Vol] 0.23 mg/dL Normal 0.00-0.30 [facility] Comment on above: Result Comment: Hemo lysis present, Results??could be affected. ?? Performed By: #### L 501.3620, L501.2450, L500.2500, L500.3400 ####[facility] [address] [place], [address] Globulin (S) [Mass/Vol] 2.7 g/dL Normal 2.2-4.2 [facility] Comment on above: Performed By: #### L 501.3620, L501.2450, L500.2500, L500.3400 ####[facility] [address] [place], [address] T PROT 6.7 g/dL Normal 5.9-8.4 [facility] Comment on above: Performed By: #### L 501.3620, L501.2450, L500.2500, L500.3400 ####[facility] [address] [place], [address] Manual differential comment Rodrigo (Bld) [Interp]Ordered By: Radha Elias on 01-04-2025 Differential Comment COMMENT [facility] Comment on above: LYMPHOPENIA. Microscopic analysis of urin e for red blood cells (RBC)Ordered By: Radha Elias on 01-04-2025 Microscopic analysis of urine for red blood cells (RBC) 0 SEEN /hpf 0-5 [facility] Urine RBC 0 SEEN /hpf 0-5 [facility] Mucus LM Ql (Urine sed)Order ed By: Radha Elias on 01-04-2025 Mucus Ql (Urine sed) RARE /hpf [facility] Nitrite Test strip Ql (U)Ord ered By: Radha Elias on 01-04-2025 Nitrite Ql (U) Negative Negative [facility] No Panel InformationOrdered By: Radha Elias on 01-04-2025 Hepatitis C Antibody Comment Comment . [facility] Comment on above: Not infected with HC V unless early or acute infection issuspected (which may be delayed in an immunocompromisedindividual), or other evidence exists to indicate HCVinfection.Performed at: [facility] [id number] Director: Sharad Arreaga PhD, Phone: [phone] Protein Test strip Ql (U)Ord ered By: Radha Elias on 01-04-2025 Protein Ql (U) 30 mg/dl High Negative [facility] Prothrombin Time w/INRon INR Coag (PPP) [Relative time] 1.3 {INR} Normal [facility] Comment on above: Performed By: #### L 501.8400, L300.3900, M489.3743 #### [facility] Laboratory [address] [place], [address] PT Coag (PPP) [Time] 16.4 s High 11.7-14.9 [facility] Comment on above: Performed By: #### L 501.8400, L300.3900, D923.3640 #### [facility] [address] [place], [address] Prothrombin timeOrdered By: Makenzie Gonzáles on 01-04-2025 PT Coag (PPP) [Time] 16.4 s High 11.7-14.9 [facility] Respiratory pathogens DNA an d RNA panel OUMAR+probe (Resp)Ordered By: Makenzie Gonzáles on 01-04-2025 Respiratory Panel (PCR) [facility] Respiratory pathogens detect ion panel by molecular detection methodOrdered By: Makenzie Gonzáles on 01-04-2025 Respiratory pathogens DNA and RNA panel OUMAR+probe (Resp) [facility] SARS-CoV-2 (COVID-19) Ag IA. rapid Ql (Resp)Ordered By: Makenzie Gonzáles on 01-04-2025 SARS-CoV-2 Antigen (Rapid) [facility] Salicylateon 01-04-2025 SALICYLATE < 0.5 Low 2.8-20.0 [facility] Comment on above: Result Comment: Sali cylate concentrations > 30 mg/dL are potentially toxic. Salicylate concentrations exceeding 60 mg/dL can be lethal. Performed By: #### L 501.8300, L3000.0375 ####[facility] [address] [place], [place], [address] Salicylates [Mass/Vol]Ordere d By: Radha Elias on 01-04-2025 Salicylates Level < 0.5 mg/dL Low 2.8-20.0 [facility] Comment on above: Salicylate concentra tions > 30 mg/dL are potentially toxic.Salicylate concentrations exceeding 60 mg/dL can be lethal. Serum or plasma acetaminophe n measurement (mass/volume)Ordered By: Makenzie Gonzáles on 01-04-2025 Acetaminophen [Mass/Vol] ug/mL Low 8.0-19.0 [facility] Comment on above: Acetaminophen concen trations > 200 ug/mL four hours after ingestion, > 100 ug/mL eight hours after ingestion, and > 50 ug/mL 12 hours after ingestion are potentially toxic. Serum or plasma creatine kin ase activityOrdered By: Radha Elias on 01-04-2025 CK [Catalytic activity/Vol] 65 U/L 24 [facility] Serum or plasma hepatitis B virus surface antigen detection by immunoassayOrdered By: Radha Elias on 01-04-2025 HBV surface Ag IA Ql Negative Negative [facility] Serum or plasma salicylates measurement (mass/volume)Ordered By: Radha Elias on 01-04-2025 Salicylates [Mass/Vol] mg/dL Low 2.8-20.0 [facility] Comment on above: Salicylate concentra tions > 30 mg/dL are potentially toxic.Salicylate concentrations exceeding 60 mg/dL can be lethal. Squamous epithelial cells de tection in urine sediment by light microscopyOrdered By: Radha Elias on 01-04-2025 Epithelial cells.squamous LM Ql (Urine sed) 0 SEEN /hpf 5-10 [facility] Stool Lactoferrin/WBCon 12-13 WBCST Normal Reference Ran ge = Negative Fecal WBC Lactoferrin A Positive: Fecal WBC Lactoferrin present A Normal [facility] Comment on above: Performed By: #### M 100.0605, L400.0001, M100.6796, M100.637 ####[facility] [address] [place], [place], [id number] Stool enteric pathogen panel by probe and target amplification methodOrdered By: Radha Elias on 01-04-2025 Enteric Bacteriology [facility] Stool lactoferrin detection by immunoassayOrdered By: Radha Elias on 01-04-2025 Lactoferrin IA Ql (Stl) [facility] TSH DL <= 0.005 mIU/L QnOrde red By: Makenzie Gonzáles on 01-04-2025 Thyroid Stimulating Hormone (TSH) 5.350 uIU/mL High 0.300-4.200 [facility] TSH Qn 5.350 uIU/mL High 0.300-4.200 [facility] Thyroid Stim Hormone (TSH)on 01-04-2025 TSH 5.350 uIU/mL High 0.300-4.200 [facility] Comment on above: Performed By: #### L 501.8400, L300.3900, L501.9520 #### [facility] Laboratory [address] [place], [address] Urinalysis, Completeon 01-04 BACTERIA 2+ /hpf Normal None Seen [facility] Comment on above: Order Comment: CLEAN CATCH Performed By: #### M 100.0605, L400.0001, M100.6796, M100.637 ####[facility] [address] [place], [address] Mucus Ql (Urine sed) RARE Normal [facility] Comment on above: Order Comment: CLEAN CATCH Performed By: #### M 100.0605, L400.0001, M100.6796, M100.637 ####[facility] [address] [place], [address] EPI,SQUAMOUS 0 SEEN Normal 5-10 [facility] Comment on above: Order Comment: CLEAN CATCH Performed By: #### M 100.0605, L400.0001, M100.6796, M100.637 ####[facility] [address] [place], [address] RBC 0 SEEN Normal 0-5 [facility] Comment on above: Order Comment: CLEAN CATCH Performed By: #### M 100.0605, L400.0001, M100.6796, M100.637 ####[facility] [address] [place], [address] WBC 0 SEEN Normal 0-5 [facility] Comment on above: Order Comment: CLEAN CATCH Performed By: #### M 100.0605, L400.0001, M100.6796, M100.637 ####[facility] [address] [place], [address] Urine blood detectionOrdered By: Radha Elias on 01-04-2025 Urine Occult Blood Negative Negative [facility] Urine clarityOrdered By: Sidra Elias on 01-04-2025 Clarity (U) Sl. Cloudy Clear [facility] Urine color determinationOrd ered By: Radha Elias on 04-24-2025 Color (U) Yellow Yellow [facility] Urine glucose detectionOrder ed By: Radha Elias on 01-04-2025 Glucose Ql (U) Normal mg/dl Normal [facility] Urine leukocyte esterase det ection by dipstickOrdered By: Radha Elias on 01-04-2025 Leukocyte esterase Test strip Ql (U) Negative Negative [facility] Urine pHOrdered By: Radha armando on 01-04-2025 pH (U) 5.0 [pH] 5.0 - 8.0 [facility] Urine sediment bacteria coun t by microscopy (number/high power field)Ordered By: Radha Elias on 01-04-2025 Bacteria LM.HPF (Urine sed) [#/Area] 2 /[HPF] None Seen [facility] Urine specific gravity measu rementOrdered By: Radha Elias on 01-04-2025 Specific gravity (U) [Rel density] 1.025 1.002-1.030 [facility] Urine urobilinogen measureme ntOrdered By: Radha Elias on 01-04-2025 Urobilinogen Ql (U) 1 mg/dl High Normal [facility] Urobilinogen Ql (U)Ordered B y: Radha Elias on 01-04-2025 Urobilinogen (U) [Mass/Vol] 1 mg/dL High Normal [facility] [facility] White blood cell countOrdere d By: Radha Elias on 01-04-2025 Urine WBC 0 SEEN /hpf 0-5 [facility] White blood cell count 0 SEEN /hpf 0-5 [facility] CTA Neck W/WO Contraston CTA Neck W/WO Contrast [facility] Imaging Services [address] [place] [address] CTA Neck W/WO Contrast MR#: [id number] Acct: [id number] Name: ZEE RAMIREZ Rep #: [id number] : 1950 F 74 From: Reginaldo Laird MD PCP: Dr. Katalina Velazquez MD Status: REG CLI Study: CTA Neck W/WO Contrast Date of Exam: 12/28/24 Exam# [id number] Ordering Dr: Kimberley Montague PROCEDURE: CTA NECK W/WO CONTRAST 12/28/2024 REASON FOR EXAM: NECK MASS, difficulty swallowing, excessive coughing, slight carotid stenosis TECHNIQUE: CTA NECK WITH IV CONTRAST: Coronal and Sagittal reconstruction series were provided. 3D, 3D post processing, 3D reconstructions, Maximum intensity projection (MIPs) Volume rendering and Shaded surface rendering was provided. CONTRAST: Isovue 370 VOLUME: 100 mL IV One or more dose reduction techniques were used (e.g., Automated exposure control, adjustment of the mA and/or kV according to patient size, use of iterative reconstruction technique). RADIATION DOSE SUMMARY: DLP: 354.4 mGycm COMPARISON: None FINDINGS: No neck masses identified. No mass effect on the partially visualized aerodigestive tract. AORTIC ARCH: Branch vessels are widely patent. Left vertebral artery origin from the aortic arch. EXTRACRANIAL CAROTIDS: Widely patent. No significant RIGHT ICA stenosis Small calcifications without significant LEFT ICA stenosis NONVASCULAR:Bilateral ocular lens extractions. The parotid and submandibular glands appear within normal limits. No cervical lymphadenopathy. The thyroid appears within normal limits. CT/CTA Neck W/WO Contrast IMPRESSION: No neck mass identified. No carotid or vertebral stenosis or dissection. Reading Location: [facility] CC: BRIANNE Thornton; Dr. 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 [address] [place] [id number] Thyroid MR#: [id number] Acct: [id number] Name: ZEE RAMIREZ Rep #: [id number] : 1950 F 74 From: Parveen Garcia MD PCP: Dr. Katalina Velazquez MD Status: REG CLI Study: Thyroid Date of Exam: 12/18/24 Exam# [id number] Ordering Dr: Kimberley Montague PROCEDURE: THYROID (USTHY), 12/18/2024 REASON FOR EXAM: THYROID NODULE TECHNIQUE: Grayscale and color Doppler imaging of the thyroid was performed. COMPARISON: No prior dedicated thyroid ultrasound. FINDINGS: Right lobe measures 3.5 x 1.3 x 1.4cm. Essentially homogeneous background echotexture. No abnormal vascularity. Nodules as below: *5 x 4 x 4 mm, mixed cystic and solid, hypoechoic solid components, TI-RADS 3. *7 x 6 x 4 mm, solid, essentially isoechoic, TI-RADS 3. Left lobe measures 3.5 x 1.3 x 1.1 cm. Essentially homogeneous background echotexture. No abnormal vascularity. Nodules as below: *5 x 5 x 3 mm, solid, hypoechoic, TI-RADS 4. Isthmus measures 3 mm in thickness. US/Thyroid IMPRESSION: 1. Assessment is TI-RADS 4. No nodules currently meet criteria for FNA or follow-up. 2. Atrophic but essentially homogeneous gland without abnormal vascularity. Management recommendations for TI-RADS 4 findings: FNA if = 1.5 cm; Follow if = 1 cm at 1, 2, 3, and 5 years. Recommendations per ACR Thyroid Imaging, Reporting and Data System (TI-RADS): White Paper of the ACR TI-RADS Committee, 2017 ([email or web address]) Reading Location: [id number] CC: BRIANNE Thornton; Dr. 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 Normal [facility] Anion gap in Serum or Plasma Ordered By: Kimberley Montague on 12-08-2024 Anion gap [Moles/Vol] 12 mmol/L 5-15 [facility] BUN/creatinine ratioOrdered By: Kimberley Montague on 12-08-2024 Urea nitrogen/Creatinine [Mass ratio] 22.9 mg/mg High 10-20 [facility] Bilirubin, totalOrdered By: Kimberley Montague on 12-08-2024 Bilirubin [Mass/Vol] 0.33 mg/dL 0.00-1.30 [facility] Carbon dioxide, total [Moles /volume] in Central venous bloodOrdered By: Kimberley Montague on 12-08-2024 CO2 [Moles/Vol] 23.4 mmol/L 21.0-32.0 [facility] Chloride assayOrdered By: David Montague on 12-08-2024 Chloride [Moles/Vol] 105 mmol/L 98-108 [facility] Comprehensive Metabolic Prof ilon 12-08-2024 Albumin [Mass/Vol] 4.3 g/dL Normal 3.4-4.8 [facility] Comment on above: Performed By: #### L 501.9520, L500.4050 #### [facility] Laboratory [address] [place], [address] Albumin/Globulin [Mass ratio] 1.9 {ratio} Normal 0.9-2.4 [facility] Comment on above: Performed By: #### L 501.9520, L500.4050 #### [facility] Laboratory [address] [place], [address] ALK PHOS 85 U/L Normal 35-104 [facility] Comment on above: Performed By: #### L 501.9520, L500.4050 #### [facility] Laboratory [address] [place], [address] ALT [Catalytic activity/Vol] 24 U/L Normal <=34 [facility] Comment on above: Performed By: #### L 501.9520, L500.4050 #### [facility] Laboratory [address] [place], [address] AST [Catalytic activity/Vol] 21 U/L Normal <=31 [facility] Comment on above: Performed By: #### L 501.9520, L500.4050 #### [facility] Laboratory [address] [place], [address] Bilirubin [Mass/Vol] 0.33 mg/dL Normal 0.00-1.30 [facility] Comment on above: Performed By: #### L 501.9520, L500.4050 #### [facility] Laboratory [address] [place], [address] BUN/CRE 22.9 RATIO High 10-20 [facility] Comment on above: Performed By: #### L 501.9520, L500.4050 #### [facility] Laboratory [address] [place], [address] Calcium [Mass/Vol] 9.3 mg/dL Normal 7.6-11.0 [facility] Comment on above: Performed By: #### L 501.9520, L500.4050 #### [facility] Laboratory [address] [place], [address] Chloride [Moles/Vol] 105 mmol/L Normal 98-108 [facility] Comment on above: Performed By: #### L 501.9520, L500.4050 #### [facility] Laboratory [address] [place], [address] CO2 [Moles/Vol] 23.4 mmol/L Normal 21.0-32.0 [facility] Comment on above: Performed By: #### L 501.9520, L500.4050 #### [facility] Laboratory [address] [place], [address] Creatinine [Mass/Vol] 0.76 mg/dL Normal 0.70-1.20 [facility] Comment on above: Performed By: #### L 501.9520, L500.4050 #### [facility] Laboratory [address] [place], [address] GAP 12 Normal 5-15 [facility] Comment on above: Performed By: #### L 501.9520, L500.4050 #### [facility] Laboratory [address] [place], [address] GFR/1.73 sq M.predicted among non-blacks MDRD (S/P/Bld) [Vol rate/Area] 82 mL/min/{1.73_m2} Normal >60 [facility] Comment on above: Result Comment: mL/m in/1.73m2 CKD-EPI Creatinine Equation (2020) Performed By: #### L 501.9520, L500.4050 #### [facility] Laboratory [address] [place], [address] Globulin (S) [Mass/Vol] 2.3 g/dL Normal 2.2-4.2 [facility] Comment on above: Performed By: #### L 501.9520, L500.4050 #### [facility] Laboratory [address] [place], [address] Glucose [Mass/Vol] 114 mg/dL High 70-99 [facility] Comment on above: Performed By: #### L 501.9520, L500.4050 #### [facility] Laboratory [address] [place], [address] Potassium [Moles/Vol] 4.2 mmol/L Normal 3.3-5.1 [facility] Comment on above: Performed By: #### L 501.9520, L500.4050 #### [facility] Laboratory [address] [place], [address] Sodium [Moles/Vol] 140 mmol/L Normal 133-145 [facility] Comment on above: Performed By: #### L 501.9520, L500.4050 #### [facility] Laboratory [address] [place], [address] T PROT 6.5 g/dL Normal 5.9-8.4 [facility] Comment on above: Performed By: #### L 501.9520, L500.4050 #### [facility] Laboratory [address] [place], [address] Urea nitrogen [Mass/Vol] 17 mg/dL Normal 4-19 [facility] Comment on above: Performed By: #### L 501.9520, L500.4050 #### [facility] Laboratory [address] [place], [address] GFR/1.73 sq M.predicted dylan g non-blacks MDRD (S/P/Bld) [Vol rate/Area]Ordered By: Kimberley Montague on 12-08-2024 Estimated GFR (MDRD) Non-Af Amer 82 >60 [facility] Comment on above: mL/min/1.73m2 CKD-EP I Creatinine Equation (2020) Glomerular filtration rate ( GFR) estimation/1.73 sq m using serum, plasma, or whole bOrdered By: Kimberley Montague on 12-08-2024 GFR/1.73 sq M.predicted among non-blacks MDRD (S/P/Bld) [Vol rate/Area] 82 mL/min/{1.73_m2} >60 [facility] Comment on above: mL/min/1.73m2 CKD-EP I Creatinine Equation (2020) Laboratory - Chemistry and C hemistry - challengeOrdered By: Kimberley Montague on 12-08-2024 AST [Catalytic activity/Vol] 21 U/L <32 [facility] MR/BMS.BVSon 12-08-2024 MR/BMS.BVS [facility] Vascular Surgery [address] [place] [address] OFFICE VISIT Date of Service: 12/08/24 MR#: [id number] Acct: [id number] Name: ZEE RAMIREZ Rep #: [id number] : 1950 Provider: BRIANNE Thornton Age/Sex: 74/F Location: [facility] Status: Signed with Addenda ADDENDUM by BRIANNE Thornton on 01/11/25 at 1241 Intake Chief Complaint: Follow-up chronic conditions. Neck swelling. Allergies codeine Allergy (Verified 01/04/25 10:09) Rash ibandronate sodium (From Boniva) Adverse Reaction (Verified 01/04/25 10:09) EXTREME GERD plasic tape Allergy (Mild, Uncoded 12/08/24 08:46) Rash Medications ???Medication ???Instructions ???Recorded ???Confirmed ???Type calcium carbonate 1,200 mg PO DAILY 07/07/19 5 History Lactobacillus acidophilus and 1 ea PO DAILY 09/09/19 01/04/25 Hi story rhamnosus 15 billion cell capsule vitamins A,C,Y-fprn-gqryhi 4,296 1 cap PO BID 12/19/21 01/04/25 His tory mcg-226 mg-90 mg capsule (PreserVision AREDS) dicyclomine 20 mg tablet 20 mg PO BID PRN abdominal pain 7 07/25/23 01/04/25 Rx days #14 tabs cholecalciferol (vitamin D3) 25 25 mcg PO DAILY 07/30/23 01/04/25 History mcg (1,000 unit) capsule hydroxyzine HCl 25 mg tablet 25 mg PO BID PRN anxiety #60 tabs 06/12/24 01/04/25 Rx gabapentin 100 mg capsule 100 mg PO TID PRN NERVE PAIN 07/1301/04/25 History denosumab 60 mg/mL subcutaneous 60 mg subcut P2DOILCN #1 mL 01/04/25 Rx syringe bupropion HCl 150 mg 24 hr tablet, 150 mg PO DAILY #90 tabs 5 01/04/25 Rx extended release mtgjwo-lphklpoz-gpjbyem 1 cap PO TID #320 caps 10/25/24 Rx 36,000-114,000-180,000 unit capsule,delay rel (Creon) cholestyramine (with sugar) 4 gram 4 g PO QHS PRN diarrhea 01/04/25 01/04/25 History powder for susp in a packet cyclosporine 0.05 % eye drops in a 1 drp ophthalmic (eye) Q12H 12/1301/04/25 History dropperette (Restasis) duloxetine 30 mg capsule,delayed 30 mg PO DAILY 01/04/25 01/04/25 H istory release duloxetine 30 mg capsule,delayed 60 mg PO QHS NERVE PAIN 01/04/25 0 01/04/25 History release (Cymbalta) vitamin E 268 mg (400 unit) capsule 268 mg PO DAILY 01/04/25 History Assessment and Plan Assessment and Plan (1) Localized swelling, mass and lump, neck: Status: Acute (2) Thyroid nodule: Status: Acute Orders: Orders Thyroid Stim Hormone (TSH) 12/08/24 E04.1 - Nontoxic single thyroid nodule Comprehensive Metabolic Profil 12/08/24 E04.1 - Nontoxic single thyroid nodule Thyroid 12/18/24 E04.1 - Nontoxic single thyroid nodule CTA Neck W/WO Contrast 12/28/24 R22.1 - Localized swelling, mass and lump, neck Plan CTA did not reveal any vascular abnormality that would correspond to the reported palpable lump or to her dysphagia/coughing associated with this. Thyroid ultrasound showed some small nodules and appeared benign so no FNA recommended, don't think these would likely be large enough to be causing obstructive symptoms but she could discuss further with her PCP and consider general surgery referral from there. 01/11/25 1240 Date Kimberley Montague cc: Dr. Katalina Velazquez MD * Signed Intake Vital Signs 11/13/24 10:16 12/08/24 08:45 Height 5 ft 5 in Weight: 149 lb BP 127/76 H Blood Pressure Location Lt brachial Position Sitting Respiration 14 Pulse 65 Pulse Source Monitor Temp 98 F Temp Source Temporal Pulse Oximetry (%) 97 Oxygen Delivery Method room air Intake Visit Reasons: Mass and lump on neck Is patient in pain?: Yes Allergies codeine Allergy (Verified 12/08/24 08:46) Rash ibandronate sodium (From Boniva) Adverse Reaction (Verified 12/08/24 08:46) EXTREME GERD plasic tape Allergy (Mild, Uncoded 12/08/24 08:46) Rash Medications ???Medication ???Instructions ???Recorded ???Confirmed ???Type calcium carbonate 1,200 mg PO DAILY 07/07/19 5 History Lactobacillus acidophilus and 1 ea PO DAILY 09/09/19 12/08/24 Hi story rhamnosus 15 billion cell capsule vitamins A,C,B-wgot-ycawga 4,296 1 cap PO BID 12/19/21 12/08/24 His tory mcg-226 mg-90 mg capsule (PreserVision AREDS) cholestyramine (with sugar) 4 gram 4 g PO HS #60 ea 03/10/23 Rx powder for susp in a packet dicyclomine 20 mg tablet 20 mg PO BID PRN abdominal pain 7 07/25/23 12/08/24 Rx days #14 tabs cholecalciferol (vitamin D3) 25 25 mcg PO DAILY 07/30/23 12/08/24 History mcg (1,000 unit) capsule vitamin E 200 unit capsule 400 unit PO DAILY 07/30/23 5 History comp.stocking,thigh,long,s mall #2 ea 12/16/23 12/08/24 Rx tobramycin 0.3 % eye d (more content not included)... Normal [facility] Potassium (Unsp spec) [Mass/ Vol]Ordered By: Kimberley Montague on 12-08-2024 Potassium [Moles/Vol] 4.2 mmol/L 3.3-5.1 [facility] Potassium measurement (mass/ volume)Ordered By: Kimberley Montague on 12-08-2024 Potassium (Unsp spec) [Mass/Vol] 4.2 mmol/L 3.3-5.1 [facility] Serum creatinine measurement (mass/volume)Ordered By: Kimberley Montague on 12-08-2024 Creatinine [Mass/Vol] 0.76 mg/dL 0.70-1.20 [facility] Serum globulin measurementOr dered By: Kimberley Montague on 12-08-2024 Globulin (S) [Mass/Vol] 2.3 g/dL 2.2-4.2 [facility] Serum glucose measurement (m ass/volume)Ordered By: Kimberley Montague on 12-08-2024 Glucose [Mass/Vol] 114 mg/dL High 70-99 [facility] Serum or plasma alanine boyle otransferase (ALT) measurementOrdered By: Kimberley Montague on 12-08-2024 ALT [Catalytic activity/Vol] 24 U/L <35 [facility] Serum or plasma albumin lavon urement (mass/volume)Ordered By: Kimberley Montague on 12-08-2024 Albumin [Mass/Vol] 4.3 g/dL 3.4-4.8 [facility] Serum or plasma albumin/glob ulin mass ratioOrdered By: Kimberley Montague on 12-08-2024 Albumin/Globulin [Mass ratio] 1.9 {ratio} 0.9-2.4 [facility] Serum or plasma alkaline dillon sphatase measurementOrdered By: Kimberley Montague on 12-08-2024 ALP [Catalytic activity/Vol] 85 U/L 35-104 [facility] Serum or plasma calcium lavon urement (mass/volume)Ordered By: Kimberley Montague on 12-08-2024 Calcium [Mass/Vol] 9.3 mg/dL 7.6-11.0 [facility] Serum or plasma urea nitroge n measurement (mass/volume)Ordered By: Kimberley Montague on 12-08-2024 Urea nitrogen [Mass/Vol] 17 mg/dL 4-19 [facility] Sodium levelOrdered By: Raymundo Montague on 12-08-2024 Sodium [Moles/Vol] 140 mmol/L 133-145 [facility] TSH DL <= 0.005 mIU/L QnOrde red By: Kimberley Montague on 12-08-2024 Thyroid Stimulating Hormone (TSH) 4.060 uIU/mL 0.300-4.200 [facility] TSH Qn 4.060 uIU/mL 0.300-4.200 [facility] Thyroid Stim Hormone (TSH)on 12-08-2024 TSH 4.060 uIU/mL Normal 0.300-4.200 [facility] Comment on above: Performed By: #### L 501.9520, L500.4050 #### [facility] Laboratory [address] [place], [address] Total proteinOrdered By: Kal Montague on 12-08-2024 Protein [Mass/Vol] 6.5 g/dL 5.9-8.4 [facility] Breast imaging reportOrdered By: Kei Falcon on 11-28-2024 Study report [facility] Imaging Services [address] [place] [address] SCRN MAMM (CAD)W/JONN MORENOAT MR#: [id number] Acct: [id number] Name: ZEE RAMIREZ Rep #: [id number] : 1950 F 74 From: Raheem Falcon MD PCP: Dr. Katalina Velazquez MD Status: R EG CLI Study:SCRN MAMM (CAD)W/JONN BILAT Date of Exa m: 11/27/24 Exam# [id number] Ordering Dr: Kay Velazquez MD EXAM: SCRN MAMM (CAD)W/JONN BILAT DATE: 11/27/2024 CLINICAL HISTORY: F, Age 74 y/o , BREAST CANCER SCREENING. History of prior left excisional breast biopsy. BREAST CANCER RISK ASSESSMENT: Not assessed. TECHNIQUE: Bilateral screening digital breast tomosynthesis with 2D and 3D images. Computeraided detection. COMPARISON: Prior exam(s) dating back to November 26, 2023.. FINDINGS: Bilateral Breast Mammographic Findings: No significant masses, calcifications or other abnormalities are identified. TISSUE DENSITY: The breast tissue is extremely dense which lowers the sensitivity of mammography. Stable small benign-appearing bilateral axillary lymph nodes. BI/SCRN MAMM (CAD)W/JONN BILAT IMPRESSION: Normal interval followup mammograms are recommended in 12 months. A letter with findings and recommendations will be mailed to the patient. ASSESSMENT: BIRADS 2 BENIGN FINDING RECOMMENDATION: 1: ROUTINE ANNUAL FOLLOW-UP Bilateral in 1 Year Reading Location: [place] [address] CC: Dr. 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: Signed [facility] Head/Neck Soft Tissueon 03- Head/Neck Soft Tissue [facility] Imaging Services [address] [place] [address] Head/Neck Soft Tissue MR#: [id number] Acct: [id number] Name: ZEE RAMIREZ Rep #: [id number] : 1950 F 74 From: Parveen Garcia MD PCP: Dr. Katalina Velazquez MD Status: REG CLI Study: Head/Neck Soft Tissue Date of Exam: 11/27/24 Exam# [id number] Ordering Dr: Katalina Velazquez MD PROCEDURE: HEAD/NECK SOFT TISSUE REASON FOR EXAM: ANTERIOR NECK SWELLING COMPARISON: None. TECHNIQUE: Targeted grayscale and color Doppler ultrasound of the region of clinical concern/palpable abnormality along the mid anterior midline neck was performed. FINDINGS: Palpable abnormality appears to correspond to a prominent vessel. No other focal sonographic abnormality in the area of clinical concern. Incidental note is made of small thyroid nodules, largest visualized nodule in the left measures 5 mm and is hypoechoic. These do not appear to correspond to the area of clinical concern/palpable abnormality. US/Head/Neck Soft Tissue IMPRESSION: 1. Palpable abnormality/region of clinical concern appears to correspond to a prominent vessel. 2. Incidental note of small thyroid nodules, incompletely evaluated. Consider dedicated thyroid ultrasound. Reading Location: [id number] CC: Dr. 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 Normal [facility] SCRN MAMM (CAD)W/JONN BILATo n 11-27-2024 SCRN MAMM (CAD)W/JONN BILAT [facility] Imaging Services [address] [place] [id number] SCRN MAMM (CAD)W/JONN BILAT MR#: [id number] Acct: [id number] Name: ZEE RAMIREZ Rep #: [id number] : 1950 F 74 From: Kei yeboah MD PCP: Dr. Katalina Velazquez MD Status: REG CLI Study: SCRN MAMM (CAD)W/JONN BILAT Date of Exam: 11/11 04/06 Exam# [id number] Ordering Dr: Katalina Velazquez MD EXAM: SCRN MAMM (CAD)W/JONN BILAT DATE: 11/27/2024 CLINICAL HISTORY: F, Age 74 y/o , BREAST CANCER SCREENING. History of prior left excisional breast biopsy. BREAST CANCER RISK ASSESSMENT: Not assessed. TECHNIQUE: Bilateral screening digital breast tomosynthesis with 2D and 3D images. Computer aided detection. COMPARISON: Prior exam(s) dating back to November 26, 2023.. FINDINGS: Bilateral Breast Mammographic Findings: No significant masses, calcifications or other abnormalities are identified. TISSUE DENSITY: The breast tissue is extremely dense which lowers the sensitivity of mammography. Stable small benign-appearing bilateral axillary lymph nodes. BI/SCRN MAMM (CAD)W/JONN BILAT IMPRESSION: Normal interval followup mammograms are recommended in 12 months. A letter with findings and recommendations will be mailed to the patient. ASSESSMENT: BIRADS 2 BENIGN FINDING RECOMMENDATION: 1: ROUTINE ANNUAL FOLLOW-UP Bilateral in 1 Year Reading Location: [place] [address] CC: Dr. 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 Normal [facility] Bone density reportOrdered B y: Kei Falcon on 11-15-2024 Study report Skeletal system DXA [facility] Imaging Services [address] [place] [address] Dexa Bone Density Study MR#: [id number] Acct: [id number] Name: ZEE RAMIREZ Rep #: [id number] : 1950 F 74 From: Raheem Falcon MD PCP: Dr. Katalina Velazquez MD Status: R EG CLI Study:Dexa Bone Density Study Date of Exam: 11/15/24 Exam# [id number] Ordering Dr: Memo Avina i, MD PROCEDURE: DEXA BONE DENSITY STUDY REASON FOR EXAM: F, age 74 y/o . Postmenopausal. TECHNIQUE: DEXA scan of the lumbar spine and both hips. COMPARISON: Comparison is made with prior study dated November 05, 2022. FINDINGS: Lumbar Spine (L1-L4): g/cm2 (0.808)/T-score (-1.9)/Z-score (0 points) findings are suggestive of osteopenia with a moderate fracture risk. Left Femur Total: g/cm2 (0.727)/T-score (-1.8)/Z-score (0.0) Left Femoral Neck: g/cm2 (0.632)/T-score (-2.0)/Z-score (0.1) Right Femur Total: g/cm2 (0.708)/T-score (-1.9)/Z-score (-0.2) Right Femoral Neck: g/cm2 (0.614)/T-score (-2.1)/Z-score (-0.1) The T-Scores on the most recent prior examination were: Lumbar Spine (L1-L4): There has been improvement of bone density since the previous examination. Left Femur Total: Improvement of 8.5%. Right Femur Total: Improvement of 6.6%. BD/Dexa Bone Density Study IMPRESSION: The patient is considered osteopenic as outlined below according to World San[employer] Organization (WHO) criteria with a moderate fracture risk. There has been improvement of bone density since the previous examination. Reading Location: [id number] CC: Dr. Katalina Velazquez MD; Dr. Austin Avina MD ~ Machine Shop Helper: Signed [facility] Dexa Bone Density Studyon Dexa Bone Density Study [facility] Imaging Services [address] [place] [id number] Dexa Bone Density Study MR#: [id number] Acct: [id number] Name: ZEE RAMIREZ Rep #: [id number] : 1950 F 74 From: Kei yeboah MD PCP: Dr. Katalina Velazquez MD Status: REG [facility] Study: Dexa Bone Density Study Date of Exam: 11/15/24 Exam# [id number] Ordering Dr: Austin Avina MD PROCEDURE: DEXA BONE DENSITY STUDY REASON FOR EXAM: F, age 74 y/o . Postmenopausal. TECHNIQUE: DEXA scan of the lumbar spine and both hips. COMPARISON: Comparison is made with prior study dated November 05, 2022. FINDINGS: Lumbar Spine (L1-L4): g/cm2 (0.808)/T-score (-1.9)/Z-score (0 points) findings are suggestive of osteopenia with a moderate fracture risk. Left Femur Total: g/cm2 (0.727)/T-score (-1.8)/Z-score (0.0) Left Femoral Neck: g/cm2 (0.632)/T-score (-2.0)/Z-score (0.1) Right Femur Total: g/cm2 (0.708)/T-score (-1.9)/Z-score (-0.2) Right Femoral Neck: g/cm2 (0.614)/T-score (-2.1)/Z-score (-0.1) The T-Scores on the most recent prior examination were: Lumbar Spine (L1-L4): There has been improvement of bone density since the previous examination. Left Femur Total: Improvement of 8.5%. Right Femur Total: Improvement of 6.6%. BD/Dexa Bone Density Study IMPRESSION: The patient is considered osteopenic as outlined below according to World Sanju Organization (WHO) criteria with a moderate fracture risk. There has been improvement of bone density since the previous examination. Reading Location: [id number] CC: Dr. Katalina Velazquez MD; Dr. Austin Avina MD Machine Shop Helper: Signed Normal [facility] Internal Medicine Office Vis ito 11-13-2024 Internal Medicine Office Visit [facility] [address] [place] [address] OFFICE VISIT Date of Service: 11/13/24 MR#: [id number] Acct: [id number] Name: ZEE RAMIREZ Rep #: [id number] : 1950 Provider: Dr. Katalina jarquin MD Age/Sex: 74/F [place] [facility] Status: Signed Intake Vital Signs 09/19/24 12:40 11/13/24 10:16 Height 5 ft 5 in 5 ft 5 in Weight: 147 lb BMI 24.4 BP 116/70 Blood Pressure Location Lt brachial Position Sitting Respiration 16 Pulse 64 Pulse Source Monitor Temp 97.6 F L Temp Source Temporal Pulse Oximetry (%) 99 Oxygen Delivery Method room air Intake Visit Reasons: 3 M FU Chief Complaint: Follow-up chronic conditions. Neck swelling. Bag Loader Required: No Is patient in pain?: No Allergies codeine Allergy (Verified 11/13/24 10:09) Rash ibandronate sodium (From Boniva) Adverse Reaction (Verified 11/13/24 10:09) EXTREME GERD plasic tape Allergy (Mild, Uncoded 11/13/24 10:09) Rash Medications ???Medication ???Instructions ???Recorded ???Confirmed ???Type calcium carbonate 1,200 mg PO DAILY 07/07/19 5 History Lactobacillus acidophilus and 1 ea PO DAILY 09/09/19 11/13/24 Hi story rhamnosus 15 billion cell capsule vitamins A,C,U-yyeh-owucbj 4,296 1 cap PO BID 12/19/21 11/13/24 His tory mcg-226 mg-90 mg capsule (PreserVision AREDS) cholestyramine (with sugar) 4 gram 4 g PO HS #60 ea 03/10/23 Rx powder for susp in a packet dicyclomine 20 mg tablet 20 mg PO BID PRN abdominal pain 7 07/25/23 11/13/24 Rx days #14 tabs cholecalciferol (vitamin D3) 25 25 mcg PO DAILY 07/30/23 11/13/24 History mcg (1,000 unit) capsule vitamin E 200 unit capsule 400 unit PO DAILY 07/30/23 5 History comp.stocking,thigh,long,s mall #2 ea 12/16/23 11/13/24 Rx tobramycin 0.3 % eye drops 1 drp ophthalmic (eye) Q2H #5 mL 0 02/28/24 11/13/24 Rx hydroxyzine HCl 25 mg tablet 25 mg PO BID PRN anxiety #60 tabs 06/12/24 11/13/24 Rx gabapentin 100 mg capsule 100 mg PO TID 07/13/24 11/13/24 Hi story meloxicam 7.5 mg tablet 7.5 mg PO QDAY 07/13/24 11/13/24 H istory denosumab 60 mg/mL subcutaneous 60 mg subcut [id number] #1 mL 11/13/24 Rx syringe bupropion HCl 150 mg 24 hr tablet, 150 mg PO DAILY #90 tabs 5 11/13/24 Rx extended release duloxetine 30 mg capsule,delayed 30 mg PO TID 3 months #270 caps 01 /22/25 03/03/25 Rx release hncgbk-uxgsghfo-haextmj 1 cap PO TID #320 caps 10/25/24 Rx 36,000-114,000-180,000 unit capsule,delay rel (Creon) Have you fallen in the past year?: No PFSH Medical History (Updated 11/13/24 @ 12:[address] Katalina Velazquez MD) At high risk for cardiovascular disease Localized swelling, mass and lump, neck Blister of gingiva with infection Submandibular lymphadenopathy Screening for cardiovascular condition Degenerative cervical disc Flu vaccine need Ulnar neuropathy of right upper extremity Chronic neck pain Allergic rhinosinusitis Allergic conjunctivitis Acute conjunctivitis, unspecified Varicose veins of bilateral lower extremities with pain Chronic back pain Anxiety and depression Hx of headache H/O emotional problems Hx of cataract History of back problems Allergies Urinary tract infection with hematuria Positive P-ANCA titer Osteoarthritis Breast lump Arthritis Left knee pain Hypokalemia Hypocalcemia De Quervain's tenosynovitis Anxiety Acute kidney injury TMJ arthralgia Right knee pain Mass of urinary bladder EIC (epidermal inclusion cyst) Depressive disorder Coronary artery calcification Calcification of abdominal aorta Atypical chest pain Epigastric pain Umbilical hernia Retroperitoneal lymphadenopathy Panic disorder Normocytic anemia Lumbar back pain IBS (irritable bowel syndrome) Hydronephrosis Elevated liver enzymes Diverticulitis Osteoporosis Fibromyalgia Surgical History History of cholecystectomy H/O: hysterectomy Hx of colonoscopy Cataract extraction status History of repair of hiatal hernia Family History Father Arthritis Grandmother Diabetes Grandfather Myocardial infarction Mother Myocardial infarction CVA (cerebral vascular accident) Other Fibromyalgia IBS (irritable bowel syndrome) Social History Smoking Status: Former smoker alcohol intake: never substance use type: does not use what type of physical activity do you participate in: none HPI HPI Chief Complaint: Follow-up chronic conditions. Neck swelling. Details: ZEE RAMIREZ, is a 74 F who presents to the office (more content not included)... Normal [facility] Urgent Care Visit Reporton 0 09-19-2024 Urgent Care Visit Report [facility] [address], [address] [place] [address] OFFICE VISIT Date of Service: 09/19/24 MR#: [id number] Acct: [id number] Name: ZEE RAMIREZ Rep #: [id number] : 1950 Provider: BRIANNE Eckert Age/Sex: 74/F Location[place] [facility] Status: Signed Intake Vital Signs 08/14/24 13:47 09/19/24 12:40 Height 5 ft 5 in 5 ft 5 in Weight: 144 lb 8 oz BMI 24.0 BP 120/86 H Position Sitting Pulse 65 Temp 98.5 F Temp Source Oral Pulse Oximetry (%) 99 Oxygen Delivery Method room air Intake Visit Reasons: ST/L EAR PAIN/MOUTH SORES Accompanied by: Self Allergies codeine Allergy (Verified 09/19/24 12:40) Rash ibandronate sodium (From Boniva) Adverse Reaction (Verified 09/19/24 12:40) EXTREME GERD plasic tape Allergy (Mild, Uncoded 09/19/24 12:40) Rash Medications ???Medication ???Instructions ???Recorded ???Confirmed ???Type calcium carbonate 1,200 mg PO DAILY 07/07/19 09/19/24 History Lactobacillus acidophilus and 1 ea PO DAILY 09/09/19 09/19/24 History rhamnosus 15 billion cell capsule vitamins A,C,Z-gnme-mdyjou 4,296 1 cap PO BID 12/19/21 09/19/24 History mcg-226 mg-90 mg capsule (PreserVision AREDS) cholestyramine (with sugar) 4 gram 4 g PO HS #60 ea 03/10/23 09/19/24 Rx powder for susp in a packet dicyclomine 20 mg tablet 20 mg PO BID PRN abdominal pain 7 07/25/23 09/19/24 Rx days #14 tabs cholecalciferol (vitamin D3) 25 25 mcg PO DAILY 07/30/23 09/19/24 History mcg (1,000 unit) capsule vitamin E 200 unit capsule 400 unit PO DAILY 07/30/23 09/19/24 History comp.stocking,thigh,long,s mall #2 ea 12/16/23 09/19/24 Rx tobramycin 0.3 % eye drops 1 drp ophthalmic (eye) Q2H #5 mL 02/28/24 09/19/24 Rx wksryw-asijxzzd-ulbenxj 1 cap PO TID #320 caps 03/24/24 09/19/24 Rx 36,000-114,000-180,000 unit capsule,delay rel (Creon) bupropion HCl 150 mg 24 hr tablet, 150 mg PO DAILY #90 tabs 06/01/24 09/19/24 Rx extended release calcium polycarbophil 625 mg mg PO DAILY to aid EPI 06/12/24 09/19/24 History tablet (Fiber Therapy (ca polycarbophil)) hydroxyzine HCl 25 mg tablet 25 mg PO BID PRN anxiety #60 tabs 06/12/24 09/19/24 Rx duloxetine 30 mg capsule,delayed 30 mg PO TID #90 caps 07/05/24 09/19/24 Rx release gabapentin 100 mg capsule 100 mg PO TID 07/13/24 09/19/24 History meloxicam 7.5 mg tablet 7.5 mg PO QDAY 07/13/24 09/19/24 History denosumab 60 mg/mL subcutaneous 60 mg subcut Q4HVGTHT #1 mL 07/28/24 09/19/24 Rx syringe amoxicillin 500 mg tablet 500 mg PO TID #30 tabs 09/19/24 09/19/24 Rx Have you fallen in the past year?: No Nurse's Note: Patient has Left ear pain with sore throat on the left side and mouth sores. Patient states she had them 3 days after Herbie and went away and then she got them back and this is day number 3. [facility] Medical History (Updated 09/19/24 @ 14:08 by Hiren DECKER, PA) Blister of gingiva with infection Submandibular lymphadenopathy Screening for cardiovascular condition Degenerative cervical disc Flu vaccine need Ulnar neuropathy of right upper extremity Chronic neck pain Allergic rhinosinusitis Allergic conjunctivitis Acute conjunctivitis, unspecified Varicose veins of bilateral lower extremities with pain Chronic back pain Anxiety and depression Hx of headache H/O emotional problems Hx of cataract History of back problems Allergies Urinary tract infection with hematuria Positive P-ANCA titer Osteoarthritis Breast lump Arthritis Left knee pain Hypokalemia Hypocalcemia De Quervain's tenosynovitis Anxiety Acute kidney injury TMJ arthralgia Right knee pain Mass of urinary bladder EIC (epidermal inclusion cyst) Depressive disorder Coronary artery calcification Calcification of abdominal aorta Atypical chest pain Epigastric pain Umbilical hernia Retroperitoneal lymphadenopathy Panic disorder Normocytic anemia Lumbar back pain IBS (irritable bowel syndrome) Hydronephrosis Elevated liver enzymes Diverticulitis Osteoporosis Fibromyalgia Surgical History History of cholecystectomy H/O: hysterectomy Hx of colonoscopy Cataract extraction status History of repair of hiatal hernia Family History Father Arthritis Grandmother Diabetes Grandfather Myocardial infarction Mother Myocardial infarction CVA (cerebral vascular accident) Other Fibromyalgia IBS (irritable bowel syndrome) Social History Smoking Status: Former smoker alcohol intake: never substance use type: does not use what type of physical activity do you participate in: none HPI HPI Details: ZEE RAMIREZ is a 74 F (more content not included)... Normal [facility] Coronary Angiography CTon Coronary Angiography CT [facility] Imaging Services [address] [place] [address] 09/14/24 1646 MR#: [id number] Acct: [id number] Name: ZEE RAMIREZ Rep #: [id number] : 1950 74 From: Kishor Isabel MD PCP: Dr. Katalina Velazquez MD Status:REG CLI Y Location: CT Calcium Scoring Date of Study:: 09/14/24 Indications Indications: Coronary Calcium Scoring: High-resolution Computed Tomographic imaging of the chest was performed on [09/14/24 ], with particular attention paid to the coronary arteries. Images from the examination were analyzed for the presence and extent of coronary artery calcification , using coronary calcium quantification software. The patient tolerated the procedure well and there were no complications. The results of the coronary calcification analysis are provided below. Findings Coronary Artery Left Main (LM): 54 Left Anterior Descending (LAD): 121 Left Circumflex (LCX): 0 Right Coronary Artery (RCA): 69 Total Agatston Score: 244 Percentile Rankin-90% Calcium Scoring Interpretation: Different methods to categorize the overall amount of coronary plaque. Overall amount CAC SIS Visual of coronary plaque P1 Mild -100 <2 1-2 vessels with mild amount of plaque P2 Moderate 101-300 3-4 1-2 vessels with moderate amount, 3 vessels with mild amount of plaque P3 Severe 301-999 5-7 3 vessels with moderate amount, 1 vessel with severe amount of plaque P4 Extensive >1000 >8 2-3 vessels with severe amount of plaque Calcium Score: Moderate: 1-2 vessels w/moderate amt, 3 vessels w/mild amt of plaque Conclusion: Mild to moderate plaque noted. 09/14/24 1658 Date Kishor Isabel MD Cosigner Signature (if applicable): Date CC: Dr. Kishor Isabel MD; Dr. Katalina Velazquez MD Signed Normal [facility] Limited Chest CT Cardiac Onl yon 09-14-[address] Cardiac Only [facility] Imaging Services [address] [place] [id number] Cardiac Only MR#: [id number] Acct: [id number] Name: ZEE RAMIREZ Rep #: [id number] : 1950 F 74 From: Kei yeboah MD PCP: Dr. Katalina Velazquez MD Status: [facility] Study: Limited Chest CT Cardiac Only Date of Exam: Exam# [id number] Ordering Dr: Katalina Velazquez MD [id number] STUDY: CT CHEST T ABDOMEN WITHOUT CONTRAST REASON FOR EXAM: Female, 74 years old. ATHEROSCLEROSIS OF AORTA RADIATION DOSAGE (If Supplied By Facility): CTDIvol = ( 12.19 ) mGy, DLP = ( 219.42 ) mGycm TECHNIQUE: Transaxial imaging was performed without the administration of intravenous contrast material. Cardiac over read examination. Individualized dose optimization techniques were used for this CT. COMPARISON: No relevant priors. FINDINGS: CHEST Findings suggest mild scarring at the lung bases. There is no demonstrated pleural abnormality. There are calcifications of the coronary arteries. Normal mediastinum. Normal hilar regions. Normal unenhanced pulmonary arteries. Normal aorta arch and descending thoracic aorta. There are degenerative changes of the thoracic spine. There is no demonstrated abnormality of the visualized upper abdomen. CT/Limited Chest CT Cardiac Only IMPRESSION: Coronary artery calcification. Electronically Signed: Kei Falcon MD at 10:34 EST Reading Location ID and State: [facility] / [place] , Service support , CC: Dr. 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 Normal [facility] Orthopedic Visit Reporton Orthopedic Visit Report [facility] [address] [place] [address] OFFICE VISIT Date of Service: 09/01/24 MR#: [id number] Acct: [id number] Name: ZEE RAMIREZ Rep #: [id number] : 1950 Provider: Dr. Ta Smith MD Age/Sex: 74/F [place] [facility] Status: Signed Intake Vital Signs 08/14/24 13:47 Height 5 ft 5 in Weight: 141 lb BMI 23.4 BP 124/80 H Blood Pressure Location Lt brachial Position Sitting Respiration 16 Pulse 67 Pulse Source Monitor Temp 97.6 F L Temp Source Temporal Pulse Oximetry (%) 97 Oxygen Delivery Method room air Intake Visit Reasons: CERVICAL SPINE Chief Complaint: MRI review Is patient in pain?: Yes (neck ) Pain scale (1-10): 5 Allergies codeine Allergy (Verified 09/01/24 08:36) Rash ibandronate sodium (From Boniva) Adverse Reaction (Verified 09/01/24 08:36) EXTREME GERD plasic tape Allergy (Mild, Uncoded 09/01/24 08:36) Rash Medications ???Medication ???Instructions ???Recorded ???Confirmed ???Type calcium carbonate 1,200 mg PO DAILY 07/07/19 09/01/24 History Lactobacillus acidophilus and 1 ea PO DAILY 09/09/19 09/01/24 History rhamnosus 15 billion cell capsule vitamins A,C,E-axhx-eajqgq 4,296 1 cap PO BID 12/19/21 09/01/24 History mcg-226 mg-90 mg capsule (PreserVision AREDS) cholestyramine (with sugar) 4 gram 4 g PO HS #60 ea 03/10/23 09/01/24 Rx powder for susp in a packet dicyclomine 20 mg tablet 20 mg PO BID PRN abdominal pain 7 07/25/23 09/01/24 Rx days #14 tabs cholecalciferol (vitamin D3) 25 25 mcg PO DAILY 07/30/23 09/01/24 History mcg (1,000 unit) capsule vitamin E 200 unit capsule 400 unit PO DAILY 07/30/23 09/01/24 History comp.stocking,thigh,long,s mall #2 ea 12/16/23 09/01/24 Rx tobramycin 0.3 % eye drops 1 drp ophthalmic (eye) Q2H #5 mL 02/28/24 09/01/24 Rx gkdbeq-qfoyamqn-nlavbus 1 cap PO TID #320 caps 03/24/24 09/01/24 Rx 36,000-114,000-180,000 unit capsule,delay rel (Creon) bupropion HCl 150 mg 24 hr tablet, 150 mg PO DAILY #90 tabs 06/01/24 09/01/24 Rx extended release calcium polycarbophil 625 mg mg PO DAILY to aid EPI 06/12/24 09/01/24 History tablet (Fiber Therapy (ca polycarbophil)) hydroxyzine HCl 25 mg tablet 25 mg PO BID PRN anxiety #60 tabs 06/12/24 09/01/24 Rx duloxetine 30 mg capsule,delayed 30 mg PO TID #90 caps 07/05/24 09/01/24 Rx release gabapentin 100 mg capsule 100 mg PO TID 07/13/24 09/01/24 History meloxicam 7.5 mg tablet 7.5 mg PO QDAY 07/13/24 09/01/24 History denosumab 60 mg/mL subcutaneous 60 mg subcut [id number] #1 mL 07/28/24 09/01/24 Rx syringe Have you fallen in the past year?: No PFSH Medical History Submandibular lymphadenopathy Screening for cardiovascular condition Degenerative cervical disc Flu vaccine need Ulnar neuropathy of right upper extremity Chronic neck pain Allergic rhinosinusitis Allergic conjunctivitis Acute conjunctivitis, unspecified Varicose veins of bilateral lower extremities with pain Chronic back pain Anxiety and depression Hx of headache H/O emotional problems Hx of cataract History of back problems Allergies Urinary tract infection with hematuria Positive P-ANCA titer Osteoarthritis Breast lump Arthritis Left knee pain Hypokalemia Hypocalcemia De Quervain's tenosynovitis Anxiety Acute kidney injury TMJ arthralgia Right knee pain Mass of urinary bladder EIC (epidermal inclusion cyst) Depressive disorder Coronary artery calcification Calcification of abdominal aorta Atypical chest pain Epigastric pain Umbilical hernia Retroperitoneal lymphadenopathy Panic disorder Normocytic anemia Lumbar back pain IBS (irritable bowel syndrome) Hydronephrosis Elevated liver enzymes Diverticulitis Osteoporosis Fibromyalgia Surgical History History of cholecystectomy H/O: hysterectomy Hx of colonoscopy Cataract extraction status History of repair of hiatal hernia Family History Father Arthritis Grandmother Diabetes Grandfather Myocardial infarction Mother Myocardial infarction CVA (cerebral vascular accident) Other Fibromyalgia IBS (irritable bowel syndrome) Social History Smoking Status: Former smoker alcohol intake: never substance use type: does not use what type of physical activity do you participate in: none HPI CERVICAL SPINE Chief Complaint: cervical spine Details: This documentation accurately reflects the service provided and the decisions made by me, Dr. Ta Smith MD 09/01/24 0860. Part of today???s visit was documented by [ ] (more content not included)... Normal [facility] Office Visit Reporton 2023 Office Visit Report [facility] [address] [place] [address] OFFICE VISIT Date of Service: 08/16/24 MR#: [id number] Acct: [id number] Patient: ZEE RAMIREZ Rep #: [id number] : 1950 Provider: Bogdan Yeung Age/Sex: 74/F Location: [facility] Status: Signed Intake Vital Signs 07/28/24 10:32 08/14/24 13:47 Height 5 ft 5 in 5 ft 5 in Weight: 141 lb BMI 23.4 BP 124/80 H Blood Pressure Location Lt brachial Position Sitting Respiration 16 Pulse 67 Pulse Source Monitor Temp 97.6 F L Temp Source Temporal Pulse Oximetry (%) 97 Oxygen Delivery Method room air Intake Visit Reasons: Prolia - B B Chief Complaint: Follow-up chronic conditions. Allergies codeine Allergy (Verified 08/14/24 13:37) Rash ibandronate sodium (From Boniva) Adverse Reaction (Verified 08/14/24 13:37) EXTREME GERD plasic tape Allergy (Mild, Uncoded 08/14/24 13:37) Rash Have you fallen in the past year?: No Office Procedures Injections Procedure performed by: Maria De Jesus Wynn Lot number: [id number] Tea Taster: [facility] date: 11/10/26 Dose of injection: 1ML Site of injection: Sub-Q Medication Given: No Is this a patient provided medication?: No Office Meds Prolia 60 mg/mL subcutaneous syringe Performing Provider: Austin Avina MD Performing Location: [facility] Administered by: Maria De Jesus Wynn on 08/16/24 10:18 Dose Route Admin Location Dispensed Lot Number Expiration Date [facility] ufacturer 60 mg subcut LT ARM 1 mL [id number] 08/16/24 22003-687-70 [facility] Assessment and Plan Assessment and Plan (1) Osteoporosis: Status: Chronic Qualifiers: Osteoporosis type: unspecified Presence of current pathological fracture: without current pathological fracture Qualified Code(s): M81.0 - Age-related osteoporosis without current pathological fracture Orders: Orders Prolia Injection 08/16/24 M81.0 - Age-related osteoporosis without current pathological fracture Clinical Quality Measures Falls Risk Screening/Assistive Devices Have you fallen in the past year?: No 08/17/24 0709 Date Austin Velasquez Signature: Date (if applicable) CC: Normal [facility] [id number] DOrdered By: Kay Velazquez on 08-14-2024 Vitamin D 25-Hydroxy 66.0 ng/mL [facility] Comment on above: Vitamin D 25(OH) Sta tus Range Deficiency <20 ng/mL (50nmol/L) Insufficiency 20 - 30 ng/mL (50 - 75 nmol/L) Sufficiency 30 - 100 ng/mL (75 - 250 nmol/L) Toxicity >100 ng/mL (>250 nmol/L) High density lipoprotein (HD L) measurementOrdered By: Katalina Velazquez on 08-14-2024 Cholesterol in HDL [Mass/Vol] 84 mg/dL >40 [facility] Comment on above: The drugs N-Acetylcy steine and Metamizole may falsely depress this assay. Reference Range HDL <40 mg/dL Low HDL Cholesterol HDL >or= 60 mg/dL High HDL Cholesterol Internal Medicine Office Vis ito 08-14-2024 Internal Medicine Office Visit [facility] [address] [place] [address] [address] [place] [address] OFFICE VISIT Date of Service: 08/14/24 MR#: [id number] Acct: [id number] Name: ZEE RAMIREZ Rep #: [id number] : 1950 Provider: Dr. Katalina jarquin MD Age/Sex: 74/F [place] [facility] Status: Signed Intake Vital Signs 06/12/24 09:54 07/28/24 10:32 08/14/24 13:47 Height 5 ft 5 in 5 ft 5 in 5 ft 5 in Weight: 143 lb 2 oz 141 lb BMI 23.8 23.4 BP 143/79 H 124/80 H Blood Pressure Location Rt brachial Lt brachial Position Sitting Sitting Respiration 16 Pulse 59 L 67 Pulse Source Monitor Monitor Temp 97.6 F L Temp Source Temporal Pulse Oximetry (%) 97 97 Oxygen Delivery Method room air room air Intake Visit Reasons: 2 M FU Chief Complaint: Follow-up chronic conditions. Bag Loader Required: No Is patient in pain?: No Allergies codeine Allergy (Verified 08/14/24 13:37) Rash ibandronate sodium (From Boniva) Adverse Reaction (Verified 08/14/24 13:37) EXTREME GERD plasic tape Allergy (Mild, Uncoded 08/14/24 13:37) Rash Medications ???Medication ???Instructions ???Recorded ???Confirmed ???Type calcium carbonate 1,200 mg PO DAILY 07/07/19 08/14/24 History Lactobacillus acidophilus and 1 ea PO DAILY 09/09/19 08/14/24 History rhamnosus 15 billion cell capsule vitamins A,C,D-ydbu-kfauys 4,296 1 cap PO BID 12/19/21 08/14/24 History mcg-226 mg-90 mg capsule (PreserVision AREDS) cholestyramine (with sugar) 4 gram 4 g PO HS #60 ea 03/10/23 08/14/24 Rx powder for susp in a packet dicyclomine 20 mg tablet 20 mg PO BID PRN abdominal pain 7 07/25/23 08/14/24 Rx days #14 tabs cholecalciferol (vitamin D3) 25 25 mcg PO DAILY 07/30/23 08/14/24 History mcg (1,000 unit) capsule vitamin E 200 unit capsule 400 unit PO DAILY 07/30/23 08/14/24 History comp.stocking,thigh,long,s mall #2 ea 12/16/23 08/14/24 Rx tobramycin 0.3 % eye drops 1 drp ophthalmic (eye) Q2H #5 mL 02/28/24 08/14/24 Rx dbgaxo-hmhykfys-fbfyvug 1 cap PO TID #320 caps 03/24/24 08/14/24 Rx 36,000-114,000-180,000 unit capsule,delay rel (Creon) bupropion HCl 150 mg 24 hr tablet, 150 mg PO DAILY #90 tabs 06/01/24 08/14/24 Rx extended release calcium polycarbophil 625 mg mg PO DAILY to aid EPI 06/12/24 08/14/24 History tablet (Fiber Therapy (ca polycarbophil)) hydroxyzine HCl 25 mg tablet 25 mg PO BID PRN anxiety #60 tabs 06/12/24 08/14/24 Rx duloxetine 30 mg capsule,delayed 30 mg PO TID #90 caps 07/05/24 08/14/24 Rx release gabapentin 100 mg capsule 100 mg PO TID 07/13/24 08/14/24 History meloxicam 7.5 mg tablet 7.5 mg PO QDAY 07/13/24 08/14/24 History denosumab 60 mg/mL subcutaneous 60 mg subcut Q3DYTFLX #1 mL 07/28/24 08/14/24 Rx syringe Have you fallen in the past year?: No PFSH Medical History (Updated 08/14/24 @ 14:[address] Katalina Velazquez MD) Submandibular lymphadenopathy Screening for cardiovascular condition Degenerative cervical disc Flu vaccine need Ulnar neuropathy of right upper extremity Chronic neck pain Allergic rhinosinusitis Allergic conjunctivitis Acute conjunctivitis, unspecified Varicose veins of bilateral lower extremities with pain Chronic back pain Anxiety and depression Hx of headache H/O emotional problems Hx of cataract History of back problems Allergies Urinary tract infection with hematuria Positive P-ANCA titer Osteoarthritis Breast lump Arthritis Left knee pain Hypokalemia Hypocalcemia De Quervain's tenosynovitis Anxiety Acute kidney injury TMJ arthralgia Right knee pain Mass of urinary bladder EIC (epidermal inclusion cyst) Depressive disorder Coronary artery calcification Calcification of abdominal aorta Atypical chest pain Epigastric pain Umbilical hernia Retroperitoneal lymphadenopathy Panic disorder Normocytic anemia Lumbar back pain IBS (irritable bowel syndrome) Hydronephrosis Elevated liver enzymes Diverticulitis Osteoporosis Fibromyalgia Surgical History History of cholecystectomy H/O: hysterectomy Hx of colonoscopy Cataract extraction status History of repair of hiatal hernia Family History Father Arthritis Grandmother Diabetes Grandfather Myocardial infarction Mother Myocardial infarction CVA (cerebral vascular accident) Other Fibromyalgia IBS (irritable bowel syndrome) Social History Smoking Status: Former smoker alcohol intake: never substance use type: does not use what type of physical activity do you participate in: none HPI HPI Chief Complaint: Follow-up chronic conditions. Details: ZEE RAMIREZ, is a 74 (more content not included)... Normal [facility] Lipid Profileon 08-14-2024 Cholesterol [Mass/Vol] 216 mg/dL High 200 [facility] Comment on above: Result Comment: <200 mg/dL Desirable 200-240 mg/dL Borderline >240 mg/dL High Risk Performed By: #### L 501.8400, L300.3900, L501.9520 #### [facility] Laboratory [address] [place], [address] Cholesterol in HDL [Mass/Vol] 84 mg/dL Normal [facility] Comment on above: Result Comment: The drugs N-Acetylcysteine and Metamizole may falsely depress this assay. Reference Range HDL <40 mg/dL Low HDL Cholesterol HDL >or= 60 mg/dL High HDL Cholesterol Performed By: #### L 501.8400, L300.3900, L501.9520 #### [facility] [address] [place], [address] Cholesterol in LDL [Mass/Vol] 120 mg/dL Normal 0-130 [facility] Comment on above: Performed By: #### L 501.8400, L300.3900, L501.9520 #### [facility] [address] [place], [address] Cholesterol in VLDL [Mass/Vol] 12 mg/dL Normal 5-40 [facility] Comment on above: Performed By: #### L 501.8400, L300.3900, L501.9520 #### [facility] [address] [place], [address] Triglyceride [Mass/Vol] 59 mg/dL Normal [facility] Comment on above: Result Comment: The drugs N-Acetylcysteine and Metamizole may falsely depress this assay. Serum Triglycerides Reference Interval Normal <150 mg/dL Borderline high 150 - 199 mg/dL High 200 - 499 mg/dL Very High > or = 500 mg/dL Performed By: #### L 501.8400, L300.3900, L501.9520 #### [facility] Laboratory [address] [place], [place], [address] Low density lipoprotein (LDL ) cholesterol measurementOrdered By: Katalina eVlazquez on 08-14-2024 Cholesterol in LDL [Mass/Vol] 120 mg/dL 0-130 [facility] Serum or plasma cholesterol measurement (mass/volume)Ordered By: Katalina Velazquez on 08-14-2024 Cholesterol [Mass/Vol] 216 mg/dL High <200 [facility] Comment on above: <200 mg/dL Desirable 200-240 mg/dL Borderline >240 mg/dL High Risk Spine Cervical (Routine)on 1 10-15-2023 Spine Cervical (Routine) [facility] Imaging Services [address] [place] [address] Spine Cervical (Routine) MR#: [id number] Acct: [id number] Name: ZEE RAMIREZ Rep #: [id number] : 1950 F 74 From: Nirav alexandre DO PCP: Dr. Katalina Velazquez MD Status: REG CL Study: Spine Cervical (Routine) Date of Exam: Exam# [id number] Ordering Dr: Ta Smith MD [id number] EXAM: MR CERVICAL SPINE WITHOUT INTRAVENOUS CONTRAST CLINICAL INDICATION: NECK pain TECHNIQUE: Multiplanar and multisequence MR images of the cervical spine without intravenous contrast were performed. COMPARISON: Cervical spine radiographs, 07/13/2024 FINDINGS: VERTEBRAE: Trace degenerative anterolisthesis of C4 upon C5 and relative retrolisthesis of C6 upon C7. Secondary to facet arthrosis. Aside from degenerative changes, normal craniocervical junction and cervicothoracic junction. There is preservation of the normal cervical lordosis. SPINAL CORD: No spinal cord signal abnormality or critical mass effect upon the spinal cord. SOFT TISSUES: No significant abnormality. No prevertebral soft tissue swelling. LYMPH NODES: No significant abnormality. There is no cervical adenopathy. DISCS/SPINAL CANAL/NEURAL FORAMINA: C2-C3: Mild bilateral facet arthrosis. No disc herniation, spinal canal stenosis, or neural foraminal narrowing. C3-C4: Disc height loss and disc desiccation. Facet and uncovertebral joint arthrosis and very mild disc bulge. Mild spinal canal and bilateral neural foraminal narrowing. C4-C5: Disc height loss and desiccation. Facet and uncovertebral joint arthrosis and a disc bulge. Mild spinal canal and bilateral neural foraminal narrowing. C5-C6: Disc height loss and disc desiccation. Central disc herniation and moderate facet and uncovertebral joint arthrosis. Moderate bilateral neural foraminal narrowing and mild to moderate spinal canal stenosis exacerbated by ligamentum flavum thickening and/or redundancy. C6-C7: Central disc herniation and moderate facet and uncovertebral joint arthrosis. Moderate right greater than left neural foraminal narrowing and mild to moderate spinal canal stenosis exacerbated by ligamentum flavum thickening and/or redundancy. C7-T1: Mild bilateral facet arthrosis. No disc herniation, spinal canal stenosis, or neural foraminal narrowing. MRI/Spine Cervical (Routine) IMPRESSION: 1. No spinal cord signal abnormality or critical mass effect upon the spinal cord. 2. Trace degenerative anterolisthesis of C4 upon C5 and relative retrolisthesis of C6 upon C7. Secondary to facet arthrosis. Additional degenerative changes as detailed above. Electronically Signed: Nirav Howell DO at 23:52 EST , CC: Dr. Ta Smith MD; Dr. 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 Normal [facility] Triglycerides measurementOrd ered By: Katalina Velazquez on 08-14-2024 Triglyceride [Mass/Vol] 59 mg/dL <199 [facility] Comment on above: The drugs N-Acetylcy steine and Metamizole may falsely depress this assay.Serum Triglycerides Reference Interval Normal <150 mg/dL Borderline high 150 - 199 mg/dL High 200 - 499 mg/dL Very High > or = 500 mg/dL Very low density lipoprotein (VLDL) cholesterol measurementOrdered By: Katalina Velazquez on 08-14-2024 VLDL Cholesterol 12 mg/dL 5-40 [place] [facility] Vitamin D,25 Hydroxyon 08-14 Vitamin D 25-OH 66.0 ng/mL Normal [facility] Comment on above: Result Comment: Kristen min D 25(OH) Status Range Deficiency <20 ng/mL (50nmol/L) Insufficiency 20 - 30 ng/mL (50 - 75 nmol/L) Sufficiency 30 - 100 ng/mL (75 - 250 nmol/L) Toxicity >100 ng/mL (>250 nmol/L) Performed By: #### L 501.8400, L300.3900, L501.9520 #### [facility] [address] [place], [place], [address] Endocrinology Visit Reporton 07-28-2024 Endocrinology Visit Report [facility] [address] [place], [place] [address] OFFICE VISIT Date of Service: 07/28/24 MR#: [id number] Acct: [id number] Name: ZEE RAMIREZ Rep #: [id number] : 1950 Provider: Bogdan Yeung Age/Sex: 74/F Location: [facility] Status: Signed Intake Vital Signs 07/30/23 09:49 07/13/24 09:59 07/28/24 10:32 Height 5 ft 6 in 5 ft 5 in 5 ft 5 in Weight: 143 lb 2 oz BMI 23.8 BP 143/79 H Blood Pressure Location Rt brachial Position Sitting Pulse 59 L Pulse Source Monitor Pulse Oximetry (%) 97 Oxygen Delivery Method room air Intake Visit Reasons: 1 Y FU Chief Complaint: Osteoporosis Is patient in pain?: No Allergies codeine Allergy (Verified 07/13/24 10:00) Rash ibandronate sodium (From Boniva) Adverse Reaction (Verified 07/13/24 10:00) EXTREME GERD plasic tape Allergy (Mild, Uncoded 07/13/24 10:00) Rash Medications ???Medication ???Instructions ???Recorded ???Confirmed ???Type calcium carbonate 1,200 mg PO DAILY 07/07/19 07/28/24 History Lactobacillus acidophilus and 1 ea PO DAILY 09/09/19 07/28/24 History rhamnosus 15 billion cell capsule vitamins A,C,Q-azvi-cozhrz 4,296 1 cap PO BID 12/19/21 07/28/24 History mcg-226 mg-90 mg capsule (PreserVision AREDS) cholestyramine (with sugar) 4 gram 4 g PO HS #60 ea 03/10/23 07/28/24 Rx powder for susp in a packet dicyclomine 20 mg tablet 20 mg PO BID PRN abdominal pain 7 07/25/23 07/28/24 Rx days #14 tabs Evenity 210 mg/2.34 mL (105 210 mg (2.34 mL) subcut QMONTH 12 07/30/23 07/28/24 Rx mg/1.17 mL x 2) subcutaneous months #2.34 mL syringe (romosozumab-aqqg) cholecalciferol (vitamin D3) 25 25 mcg PO DAILY 07/30/23 07/28/24 History mcg (1,000 unit) capsule vitamin E 200 unit capsule 400 unit PO DAILY 07/30/23 07/28/24 History comp.stocking,thigh,long,s mall #2 ea 12/16/23 07/28/24 Rx tobramycin 0.3 % eye drops 1 drp ophthalmic (eye) Q2H #5 mL 02/28/24 07/28/24 Rx mczblu-dztidcfx-lpfckeg 1 cap PO TID #320 caps 03/24/24 07/28/24 Rx 36,000-114,000-180,000 unit capsule,delay rel (Creon) bupropion HCl 150 mg 24 hr tablet, 150 mg PO DAILY #90 tabs 06/01/24 07/28/24 Rx extended release calcium polycarbophil 625 mg mg PO DAILY to aid EPI 06/12/24 07/28/24 History tablet (Fiber Therapy (ca polycarbophil)) hydroxyzine HCl 25 mg tablet 25 mg PO BID PRN anxiety #60 tabs 06/12/24 07/28/24 Rx duloxetine 30 mg capsule,delayed 30 mg PO TID #90 caps 07/05/24 07/28/24 Rx release gabapentin 100 mg capsule 100 mg PO TID 07/13/24 07/28/24 History meloxicam 7.5 mg tablet 7.5 mg PO QDAY 07/13/24 07/28/24 History Have you fallen in the past year?: No PFSH Medical History (Updated 07/28/24 @ 10:[address] Austin Avina MD) Degenerative cervical disc Flu vaccine need Ulnar neuropathy of right upper extremity Chronic neck pain Allergic rhinosinusitis Allergic conjunctivitis Acute conjunctivitis, unspecified Varicose veins of bilateral lower extremities with pain Chronic back pain Anxiety and depression Hx of headache H/O emotional problems Hx of cataract History of back problems Allergies Urinary tract infection with hematuria Positive P-ANCA titer Osteoarthritis Breast lump Arthritis Left knee pain Hypokalemia Hypocalcemia De Quervain's tenosynovitis Anxiety Acute kidney injury TMJ arthralgia Right knee pain Mass of urinary bladder EIC (epidermal inclusion cyst) Depressive disorder Coronary artery calcification Calcification of abdominal aorta Atypical chest pain Epigastric pain Umbilical hernia Retroperitoneal lymphadenopathy Panic disorder Normocytic anemia Lumbar back pain IBS (irritable bowel syndrome) Hydronephrosis Elevated liver enzymes Diverticulitis Osteoporosis Fibromyalgia Surgical History History of cholecystectomy H/O: hysterectomy Hx of colonoscopy Cataract extraction status History of repair of hiatal hernia Family History Father Arthritis Grandmother Diabetes Grandfather Myocardial infarction Mother Myocardial infarction CVA (cerebral vascular accident) Other Fibromyalgia IBS (irritable bowel syndrome) Social History Smoking Status: Former smoker alcohol intake: never substance use type: does not use what type of physical activity do you participate in: none HPI HPI Chief Complaint: Osteoporosis Details: ZEE RAMIREZ, is a 74 F who presents to the office today for follow up. She has osteoporosis treated in the past with 10 years of bisphosphonates. Despite this, bone density was worsening. She had fractu (more content not included)... Normal [facility] Cerv Spine 2 or 3 Viewson Cerv Spine 2 or 3 Views [facility] [address] [place] [address] Cerv Spine 2 or 3 Views MR#: [id number] Acct: [id number] Name: ZEE RAMIREZ Rep #: [id number] : 1950 F 73 From: Ofelia parra MD PCP: Dr. Katalina Velazquez MD Status: DEP AMB Study: Cerv Spine 2 or 3 Views Date of Exam: 07/13/24 Exam# [id number] Ordering Dr: Cindy Arzola [id number] HISTORY: neck pain -- please do upright flex/ext. TECHNIQUE: XR Spine Cervical 2 or 3 Views. COMPARISON: 06/12/2024. FINDINGS: VERTEBRAE: Vertebral body heights maintained. Degenerative changes of the posterior elements. ALIGNMENT: 2 mm anterolisthesis of C3-4 and 3 mm anterolisthesis of C4-5 with flexion. Both slightly reduced with extension. INTERVERTEBRAL DISCS: Degenerative changes with moderate intervertebral disc space narrowing again seen at C5-6 and C6-7. SOFT TISSUES: No significant prevertebral soft tissue swelling. RAD/Cerv Spine 2 or 3 Views IMPRESSION: Mild anterolisthesis of C3-4 and C4-5 as above. Electronically Signed: Ofelia Moseley MD at 9:46 EDT Reading Location ID and State: [facility] / [place] Tel , Service support , CC: BRIANNE Neely; Dr. 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 Normal [facility] Orthopedic Visit Reporton Orthopedic Visit Report [facility] [address] [place] [address] OFFICE VISIT Date of Service: 07/13/24 MR#: [id number] Acct: [id number] Name: ZEE RAMIREZ Rep #: [id number] : 1950 Provider: Dr. Ta Smith MD Age/Sex: 73/F Location[place] [facility] Status: Signed Intake Vital Signs 06/12/24 09:54 06/20/24 13:22 07/13/24 09:59 Height 5 ft 5 in 5 ft 5 in 5 ft 5 in Weight: 138 lb 8 oz BMI 23.0 Intake Visit Reasons: CERVICAL SPINE Accompanied by: Self Allergies codeine Allergy (Verified 07/13/24 10:00) Rash ibandronate sodium (From Boniva) Adverse Reaction (Verified 07/13/24 10:00) EXTREME GERD plasic tape Allergy (Mild, Uncoded 07/13/24 10:00) Rash Medications ???Medication ???Instructions ???Recorded ???Confirmed ???Type calcium carbonate 1,200 mg PO DAILY 07/07/19 07/13/24 History Lactobacillus acidophilus and 1 ea PO DAILY 09/09/19 07/13/24 History rhamnosus 15 billion cell capsule vitamins A,C,M-tgtx-qqvnir 4,296 1 cap PO BID 12/19/21 07/13/24 History mcg-226 mg-90 mg capsule (PreserVision AREDS) cholestyramine (with sugar) 4 gram 4 g PO HS #60 ea 03/10/23 07/13/24 Rx powder for susp in a packet dicyclomine 20 mg tablet 20 mg PO BID PRN abdominal pain 7 07/25/23 07/13/24 Rx days #14 tabs Evenity 210 mg/2.34 mL (105 210 mg (2.34 mL) subcut QMONTH 12 07/30/23 07/13/24 Rx mg/1.17 mL x 2) subcutaneous months #2.34 mL syringe (romosozumab-aqqg) cholecalciferol (vitamin D3) 25 25 mcg PO DAILY 07/30/23 07/13/24 History mcg (1,000 unit) capsule vitamin E 200 unit capsule 400 unit PO DAILY 07/30/23 07/13/24 History comp.stocking,thigh,long,s mall #2 ea 12/16/23 07/13/24 Rx tobramycin 0.3 % eye drops 1 drp ophthalmic (eye) Q2H #5 mL 02/28/24 07/13/24 Rx qbrins-ajwolzgx-igybefu 1 cap PO TID #320 caps 03/24/24 07/13/24 Rx 36,000-114,000-180,000 unit capsule,delay rel (Creon) bupropion HCl 150 mg 24 hr tablet, 150 mg PO DAILY #90 tabs 06/01/24 07/13/24 Rx extended release calcium polycarbophil 625 mg mg PO DAILY to aid EPI 06/12/24 07/13/24 History tablet (Fiber Therapy (ca polycarbophil)) hydroxyzine HCl 25 mg tablet 25 mg PO BID PRN anxiety #60 tabs 06/12/24 07/13/24 Rx duloxetine 30 mg capsule,delayed 30 mg PO TID #90 caps 07/05/24 07/13/24 Rx release gabapentin 100 mg capsule 100 mg PO TID 07/13/24 07/13/24 History meloxicam 7.5 mg tablet 7.5 mg PO QDAY 07/13/24 07/13/24 History Have you fallen in the past year?: No PFSH Medical History Degenerative cervical disc Flu vaccine need Ulnar neuropathy of right upper extremity Chronic neck pain Allergic rhinosinusitis Allergic conjunctivitis Acute conjunctivitis, unspecified Varicose veins of bilateral lower extremities with pain Chronic back pain Anxiety and depression Osteopenia Hx of headache H/O emotional problems Hx of cataract History of back problems Allergies Urinary tract infection with hematuria Positive P-ANCA titer Osteoarthritis Breast lump Arthritis Left knee pain Hypokalemia Hypocalcemia De Quervain's tenosynovitis Anxiety Acute kidney injury TMJ arthralgia Right knee pain Mass of urinary bladder EIC (epidermal inclusion cyst) Depressive disorder Coronary artery calcification Calcification of abdominal aorta Atypical chest pain Epigastric pain Umbilical hernia Retroperitoneal lymphadenopathy Panic disorder Normocytic anemia Lumbar back pain IBS (irritable bowel syndrome) Hydronephrosis Elevated liver enzymes Diverticulitis Osteoporosis Fibromyalgia Surgical History History of cholecystectomy H/O: hysterectomy Hx of colonoscopy Cataract extraction status History of repair of hiatal hernia Family History Father Arthritis Grandmother Diabetes Grandfather Myocardial infarction Mother Myocardial infarction CVA (cerebral vascular accident) Other Fibromyalgia IBS (irritable bowel syndrome) Social History Smoking Status: Former smoker alcohol intake: never substance use type: does not use what type of physical activity do you participate in: none HPI CERVICAL SPINE Details: This documentation accurately reflects the service provided and the decisions made by me, Dr. Ta Smith MD 07/13/24 [id number]. Part of today???s visit was documented by Nilda SUAZO and Cindy DECKER, acting as scribe. ZEE RAMIREZ is a 73 year old F here today for neck pain. She states that she has had pain for about 5 years but within the last 3 months it has gotten worse. She has a clicking noise in her neck that (more content not included)... Normal [facility] Carotid Duplex Ultrasoundon 07-06-2024 Carotid Duplex Ultrasound [facility] [address] [place] [address] Carotid Duplex Ultrasound 07/06/24 1019 MR#: [id number] Acct: [id number] Name: ZEE RAMIREZ Rep #: [id number] : 1950 73 From: Sean Ribeiro MD Attending Dr: Dr. Katalina Velazquez MD Status: REG CLI Ordering Dr: Katalina Velazquez MD Date: 07/06/24 Location: [facility] Sex: F C Admitted: Reason For Study: LT Carotid Stenosis Rt. Velocities/BP Lt. Velocities/BP Prox CCA 76.5/13.8 cm/sec. Prox CCA 106.3/22.8 cm/sec. Mid CCA 89.7/22.6 cm/sec. Mid CCA 77.6/22.6 cm/sec. Dist CCA 76.5/23.7 cm/sec. Dist CCA 70.5/19.5 cm/sec. Prox ICA 83.4/19.7 cm/sec. Prox ICA 52.7/14.6 cm/sec. Mid ICA 52.9/17.1 cm/sec. Mid ICA 53.1/17.4 cm/sec. Dist ICA 78.9/31.1 cm/sec. Dist ICA 55.0/21.0 cm/sec. Rt. ICA/CCA = 0.9. Lt. ICA/CCA = 0.7. Prox ECA 76.1/16.6 cm/sec. Prox ECA 58.5/14.1 cm/sec. Rt. Vert. 44.1/12.7 cm/sec. Lt. Vert. 44.6/11.1 cm/sec. Right Extracranial There is intimal thickening but no significant atherosclerotic plaque noted in the right common carotid artery. There is intimal thickening but no significant atherosclerotic plaque noted in the right internal carotid artery. There is intimal thickening but no significant atherosclerotic plaque noted in the right external carotid artery. Antegrade flow is noted in the right vertebral artery. Left Extracranial There is intimal thickening but no significant atherosclerotic plaque noted in the left common carotid artery. There is heterogeneous, irregular atherosclerotic plaque noted in the left internal carotid artery. There is intimal thickening but no significant atherosclerotic plaque noted in the left external carotid artery. Antegrade flow is noted in the left vertebral artery. Procedure Carotid Duplex 16492. This is a Carotid Duplex examination using B-mode, color flow and specral Doppler. The exam was diagnostic. Exam performed in department. VL/Carotid Duplex Ultrasound Interpretation Summary Normal right extracranial internal carotid. Mild (<50%) stenosis left extracranial internal carotid. Patent and antegrade vertebrals bilaterally. Ordering Physician: Katalina Velazquez Referring Physician: Katalina Velazquez Performed By: Migue Zuniga, [facility] 07/06/241657 Date Sean Ribeiro MD CC: Dr. Katalina Velazquez MD Date Dictated: 07/06/24 1019 Date Transcribed: 07/06/241657 Machine Shop Helper: Signed Normal [facility] Basic Metabolic Profile (BMP )on 06-12-2024 BUN/CRE 23.4 RATIO High 10- [facility] Comment on above: Performed By: #### L 501.9520, L503.0105, L100.0100, L506.0400, L500.2500 ####[facility] [address] [place], [address] CA,Total 9.3 mg/dL Normal 8.5-10.1 [facility] Comment on above: Performed By: #### L 501.9520, L503.0105, L100.0100, L506.0400, L500.2500 ####[facility] [address] [place], [address] Chloride [Moles/Vol] 106 mmol/L Normal 98-107 [facility] Comment on above: Performed By: #### L 501.9520, L503.0105, L100.0100, L506.0400, L500.2500 ####[facility] [address] [place], [address] CO2 [Moles/Vol] 28.0 mmol/L Normal 21.0-32.0 [facility] Comment on above: Performed By: #### L 501.9520, L503.0105, L100.0100, L506.0400, L500.2500 ####[facility] [address] [place], [address] Creatinine [Mass/Vol] 0.73 mg/dL Normal 0.55-1.02 [facility] Comment on above: Result Comment: The validity of the calculated GFR GFRAA in patients over 70 years has not been determined. Clinical correlation is essential. Performed By: #### L 501.9520, L503.0105, L100.0100, L506.0400, L500.2500 ####[facility] [address] [place], [address] EST GFR - AA 101 mL/min Normal >60 [facility] Comment on above: Result Comment: Afri can Togolese GFR Calc Performed By: #### L 501.9520, L503.0105, L100.0100, L506.0400, L500.2500 ####[facility] [address] [place], [address] GAP 5 Normal 5-15 [facility] Comment on above: Performed By: #### L 501.9520, L503.0105, L100.0100, L506.0400, L500.2500 ####[facility] [address] [place], [address] GFR/1.73 sq M.predicted among non-blacks MDRD (S/P/Bld) [Vol rate/Area] 83 mL/min/{1.73_m2} Normal >60 [facility] Comment on above: Result Comment: Non- GFR Calc Performed By: #### L 501.9520, L503.0105, L100.0100, L506.0400, L500.2500 ####[facility] [address] [place], [address] Glucose [Mass/Vol] 95 mg/dL Normal 74-106 [facility] Comment on above: Performed By: #### L 501.9520, L503.0105, L100.0100, L506.0400, L500.2500 ####[facility] [address] [place], [address] Potassium [Moles/Vol] 4.5 mmol/L Normal 3.5-5.1 [facility] Comment on above: Performed By: #### L 501.9520, L503.0105, L100.0100, L506.0400, L500.2500 ####[facility] [address] [place], [address] Sodium [Moles/Vol] 140 mmol/L Normal 136-145 [facility] Comment on above: Performed By: #### L 501.9520, L503.0105, L100.0100, L506.0400, L500.2500 ####[facility] [address] [place], [address] Urea nitrogen [Mass/Vol] 17 mg/dL Normal 7-18 [facility] Comment on above: Performed By: #### L 501.9520, L503.0105, L100.0100, L506.0400, L500.2500 ####[facility] [address] [place], [address] CBC W/Diff, Automatedon 09-3 0-4 Absolute Lymph 1.48 X10 3/uL Normal 0.83-4.51 [facility] Comment on above: Performed By: #### L 501.9520, L503.0105, L100.0100, L506.0400, L500.2500 ####[facility] [address] [place], [address] Absolute Neut 4.4 X10 3/uL Normal 2.0-7.7 [facility] Comment on above: Performed By: #### L 501.9520, L503.0105, L100.0100, L506.0400, L500.2500 ####[facility] [address] [place], [address] Basophils/100 WBC (Bld) 1.4 % High 0-1 [facility] Comment on above: Performed By: #### L 501.9520, L503.0105, L100.0100, L506.0400, L500.2500 ####[facility] [address] [place], [address] Eosinophils/100 WBC (Bld) 3.7 % Normal 0-5 [facility] Comment on above: Performed By: #### L 501.9520, L503.0105, L100.0100, L506.0400, L500.2500 ####[facility] [address] [place], [address] Erythrocyte distribution width (RBC) [Ratio] 14.1 % Normal 11.6-14.6 [facility] Comment on above: Performed By: #### L 501.9520, L503.0105, L100.0100, L506.0400, L500.2500 ####[facility] [address] [place], [address] Hematocrit (Bld) [Volume fraction] 40.4 % Normal 37-47 [facility] Comment on above: Performed By: #### L 501.9520, L503.0105, L100.0100, L506.0400, L500.2500 ####[facility] [address] [place], [address] Hemoglobin (Bld) [Mass/Vol] 13.0 g/dL Normal 12.0-15.0 [facility] Comment on above: Performed By: #### L 501.9520, L503.0105, L100.0100, L506.0400, L500.2500 ####[facility] [address] [place], [address] IG% 0.600 Normal 0.0-0.9 [facility] Comment on above: Result Comment: IG% - Immature Granulocytes (promyelocytes, myelocytes and metamyelocytes) > 1% indicates that a LEFT SHIFT is Present. Performed By: #### L 501.9520, L503.0105, L100.0100, L506.0400, L500.2500 ####[facility] [address] [place], [address] Lymphocytes/100 WBC (Bld) 21.3 % Normal 19-41 [facility] Comment on above: Performed By: #### L 501.9520, L503.0105, L100.0100, L506.0400, L500.2500 ####[facility] [address] [place], [address] MCH (RBC) [Entitic mass] 30.1 pg Normal 27.0-32.0 [facility] Comment on above: Performed By: #### L 501.9520, L503.0105, L100.0100, L506.0400, L500.2500 ####[facility] [address] [place], [address] MCHC (RBC) [Mass/Vol] 32.2 g/dL Normal 32-36 [facility] Comment on above: Performed By: #### L 501.9520, L503.0105, L100.0100, L506.0400, L500.2500 ####[facility] [address] [place], [address] MCV (RBC) [Entitic vol] 93.5 fL Normal 81-99 [facility] Comment on above: Performed By: #### L 501.9520, L503.0105, L100.0100, L506.0400, L500.2500 ####[facility] [address] [place], [address] Monocytes/100 WBC (Bld) 8.9 % Normal 0-10 [facility] Comment on above: Performed By: #### L 501.9520, L503.0105, L100.0100, L506.0400, L500.2500 ####[facility] [address] [place], [address] Neutrophils/100 WBC (Bld) 64.1 % Normal 47-70 [facility] Comment on above: Performed By: #### L 501.9520, L503.0105, L100.0100, L506.0400, L500.2500 ####[facility] [address] [place], [address] Nucleated RBC (Bld) [#/Vol] 0 10*3/uL Normal 0-5 [facility] Comment on above: Performed By: #### L 501.9520, L503.0105, L100.0100, L506.0400, L500.2500 ####[facility] [address] [place], [address] Platelet mean volume (Bld) [Entitic vol] 10.7 fL Normal 6.2-12.0 [facility] Comment on above: Performed By: #### L 501.9520, L503.0105, L100.0100, L506.0400, L500.2500 ####[facility] [address] [place], [address] Platelets (Bld) [#/Vol] 233 10*3/uL Normal 150-450 [facility] Comment on above: Performed By: #### L 501.9520, L503.0105, L100.0100, L506.0400, L500.2500 ####[facility] [address] [place], [address] RBC (Bld) [#/Vol] 4.32 10*6/uL Normal 4.2-5.4 [facility] Comment on above: Performed By: #### L 501.9520, L503.0105, L100.0100, L506.0400, L500.2500 ####[facility] [address] [place], [address] RDW SD 48.8 fl High 35.1-43.9 [facility] Comment on above: Performed By: #### L 501.9520, L503.0105, L100.0100, L506.0400, L500.2500 ####[facility] [address] [place], [address] WBC (Bld) [#/Vol] 6.9 10*3/uL Normal 4.4-11.0 [facility] Comment on above: Performed By: #### L 501.9520, L503.0105, L100.0100, L506.0400, L500.2500 ####[facility] [address] [place], [address] Cerv Spine 2 or 3 Viewson Cerv Spine 2 or 3 Views [facility] Imaging Services [address] [place], [place] [address] Cerv Spine 2 or 3 Views MR#: [id number] Acct: [id number] Name: ZEE RAMIREZ Rep #: [id number] : 1950 F 73 From: Marvin Beebe MD PCP: Dr. Katalina Velazquez MD Status: REG CLI Study: Cerv Spine 2 or 3 Views Date of Exam: 06/12/24 Exam# [id number] Ordering Dr: Katalina Velazquez MD [id number] STUDY: X-RAY - CERVICAL SPINE REASON FOR EXAM: Female, 73 years old. Chronic neck pain. TECHNIQUE: 3 view(s) of the cervical spine were obtained on 4 images. COMPARISON: None FINDINGS: Osteopenia. Normal anterior atlantoaxial articulation. Normal odontoid process. Normal cervical lordosis. 3 mm of anterolisthesis of C4 on C5. Diffuse moderate uncovertebral and facet sclerosis most marked from C2 to C5. Intervertebral disc space narrowing at C4-5 and to the greatest degree C5-6, C6-7 and C7-T1. Left carotid calcification. RAD/Cerv Spine 2 or 3 Views IMPRESSION: Osteopenia with moderate to marked mid to lower cervical spondylosis as described. Left carotid calcification. Electronically Signed: Marvin Beebe MD at 12:16 EDT , CC: Dr. 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 Katalina jarquin MD Age/Sex: 73/F [place] [facility] Status: Signed Intake Vital Signs 12/16/23 14:22 04/14/24 08:51 05/19/24 09:12 06/12/24 09:54 Height 5 ft 5 in 5 ft 5 in 5 ft 5 in 5 ft 5 in Weight: 135 lb BMI 22.4 BP 114/74 Blood Pressure Location Lt brachial Position Sitting Respiration 14 Pulse 62 Pulse Source Monitor Temp 98.4 F Temp Source Temporal Pulse Oximetry (%) 99 Oxygen Delivery Method room air Intake Visit Reasons: 6 m fu Chief Complaint: Follow-up chronic condition. Concerns. Bag Loader Required: No Is patient in pain?: No Allergies codeine Allergy (Verified 06/12/24 09:48) Rash ibandronate sodium (From Boniva) Adverse Reaction (Verified 06/12/24 09:48) EXTREME GERD plasic tape Allergy (Mild, Uncoded 06/12/24 09:48) Rash Medications ???Medication ???Instructions ???Recorded ???Confirmed ???Type calcium carbonate 1,200 mg PO DAILY 07/07/19 06/12/24 History Lactobacillus acidophilus and 1 ea PO DAILY 09/09/19 06/12/24 History rhamnosus 15 billion cell capsule vitamins A,C,D-nkdb-hlgrgm 4,296 1 cap PO BID 12/19/21 06/12/24 History mcg-226 mg-90 mg capsule (PreserVision AREDS) cholestyramine (with sugar) 4 gram 4 g PO HS #60 ea 03/10/23 06/12/24 Rx powder for susp in a packet dicyclomine 20 mg tablet 20 mg PO BID PRN abdominal pain 7 07/25/23 06/12/24 Rx days #14 tabs Evenity 210 mg/2.34 mL (105 210 mg (2.34 mL) subcut QMONTH 12 07/30/23 06/12/24 Rx mg/1.17 mL x 2) subcutaneous months #2.34 mL syringe (romosozumab-aqqg) cholecalciferol (vitamin D3) 25 25 mcg PO DAILY 07/30/23 06/12/24 History mcg (1,000 unit) capsule vitamin E 200 unit capsule 400 unit PO DAILY 07/30/23 06/12/24 History comp.stocking,thigh,long,s mall #2 ea 12/16/23 06/12/24 Rx tobramycin 0.3 % eye drops 1 drp ophthalmic (eye) Q2H #5 mL 02/28/24 06/12/24 Rx wvamak-zersiojz-cmmejod 1 cap PO TID #320 caps 03/24/24 06/12/24 Rx 36,000-114,000-180,000 unit capsule,delay rel (Creon) bupropion HCl 150 mg 24 hr tablet, 150 mg PO DAILY #90 tabs 06/01/24 06/12/24 Rx extended release calcium polycarbophil 625 mg mg PO DAILY to aid EPI 06/12/24 06/12/24 History tablet (Fiber Therapy (ca polycarbophil)) hydroxyzine HCl 25 mg tablet 25 mg PO BID PRN anxiety #60 tabs 06/12/24 06/12/24 Rx venlafaxine 37.5 mg tablet 37.5 mg PO BID #60 tabs 06/12/24 06/12/24 Rx Have you fallen in the past year?: No Nurse's Note: . [facility] Medical History (Updated 06/12/24 @ 12:[address] Katalina Velazquez MD) Flu vaccine need Ulnar neuropathy of right upper extremity Chronic neck pain Allergic rhinosinusitis Allergic conjunctivitis Acute conjunctivitis, unspecified Varicose veins of bilateral lower extremities with pain Chronic back pain Anxiety and depression Osteopenia Hx of headache H/O emotional problems Hx of cataract History of back problems Allergies Urinary tract infection with hematuria Positive P-ANCA titer Osteoarthritis Breast lump Arthritis Left knee pain Hypokalemia Hypocalcemia De Quervain's tenosynovitis Anxiety Acute kidney injury TMJ arthralgia Right knee pain Mass of urinary bladder EIC (epidermal inclusion cyst) Depressive disorder Coronary artery calcification Calcification of abdominal aorta Atypical chest pain Epigastric pain Umbilical hernia Retroperitoneal lymphadenopathy Panic disorder Normocytic anemia Lumbar back pain IBS (irritable bowel syndrome) Hydronephrosis Elevated liver enzymes Diverticulitis Osteoporosis Fibromyalgia Surgical History History of cholecystectomy H/O: hysterectomy Hx of colonoscopy Cataract extraction status History of repair of hiatal hernia Family History Father Arthritis Grandmother Diabetes Grandfather Myocardial infarction Mother Myocardial infarction CVA (cerebral vascular accident) Other Fibromyalgia IBS (irritable bowel syndrome) Social History Smoking Status: Former smoker alcohol intake: never substance use type: does not use what type of physical activity do you participate in: none HPI HPI Chief Complaint: Follow-up chronic condition. Concerns. Details: ZEE RAMIREZ, is a 73 F who presents to the office today for follow-up of her chronic medical conditions. Also has some concerns. Chronic history of anxiety and depression currently on duloxetine and (more content not included)... Normal [facility] T4 Free Directon 06-12-2024 T4 FREE DIRECT 0.88 ng/dL Normal 0.76-1.46 [facility] Comment on above: Performed By: #### L 501.9520, L503.0105, L100.0100, L506.0400, L500.2500 ####[facility] [address] [place], [place], [id number] Thyroid Stim Hormone (TSH)on 06-12-2024 TSH 1.690 uIU/mL Normal 0.358-3.740 [facility] Comment on above: Performed By: #### L 501.9520, L503.0105, L100.0100, L506.0400, L500.2500 ####[facility] [address] [facility] [place], [place], [id number] Vitamin B12on 06-12-2024 Cobalamin (Vitamin B12) [Mass/Vol] 999 pg/mL High 211-911 [facility] Comment on above: Performed By: #### L 501.9520, L503.0105, L100.0100, L506.0400, L500.2500 ####[facility] [address] [place], [address] Basophil percentageOrdered B y: Katalina Velazquez on 12-16-2023 Chloride [Moles/Vol] 107 mmol/L 98-107 [facility] Glucose [Mass/Vol] 131 mg/dL 74-106 [facility] Comment on above: Fasting Glucose resu lt greater than or equal to 126 mg/dL suggests DIABETES MELLITUS per A.D.A. criteria. Potassium [Moles/Vol] 4.0 mmol/L 3.5-5.1 [facility] Sodium [Moles/Vol] 139 mmol/L 136-145 [facility] Laboratory - Chemistry and C hemistry - challengeOrdered By: Katalina Velazquez on 12-16-2023 CO2 [Moles/Vol] 27.0 mmol/L 21.0-32.0 [facility] Urea nitrogen/Creatinine [Mass ratio] 18.5 mg/mg 10-20 [facility] No Panel InformationOrdered By: Katalina Velazquez on 12-16-2023 Estimated GFR (MDRD) Amer 97 mL/min >60 [facility] Comment on above: GFR Calc Estimated GFR (MDRD) Non-Af Amer 80 mL/min >60 [facility] Comment on above: Non- GFR Calc Serum or plasma calcium lavon urement (mass/volume)Ordered By: Katalina Velazquez on 12-16-2023 Calcium [Mass/Vol] 8.8 mg/dL 8.5-10.1 [facility] Serum or plasma creatinine m easurement (mass/volume)Ordered By: Katalina Velazquez on 12-16-2023 Creatinine [Mass/Vol] 0.76 mg/dL 0.55-1.02 [facility] Comment on above: The validity of the calculated GFR & GFRAA in patients over 70 years has not been determined. Clinical correlation is essential. Serum or plasma urea nitroge n measurement (mass/volume)Ordered By: Katalina Velazquez on 12-16-2023 Urea nitrogen [Mass/Vol] 14 mg/dL 7-18 [facility] Thin prep Papanicolaou smear with manual screeningOrdered By: Katalina Velazquez on 12-16-2023 Thin prep Papanicolaou smear with manual screening 5 5-15 [facility] Clostridium difficile detect ion by polymerase chain reactionOrdered By: Ez Spencer on 07-26-2023 C. difficile DNA OUMAR+probe Ql (Unsp spec) [facility] No Panel InformationOrdered By: Ez Spencer on 07-26-2023 Miscellaneous Test See comment [facility] Comment on above: STOOL CULTURESALMONE LLA/SHIGELLA SCREEN FINAL REPORTRESULT 1 NO SALMONELLA OR SHIGELLA RECOVERED.CAMPYLOBACTER CULTURE FINAL REPORTRESULT 1 NO CAMPYLOBACTER SPECIES ISOLATED.E COLI TOXIN EIA NEGATIVE _ TESTING PERFORMED AT [facility]. ORIGINAL REPORT ON FILE IN LAB CONTAINS ADDITIONAL TEST SITE INFORMATION. Absolute lymphocyte countOrd ered By: Callieimelda Salmeron on 07-25-2023 Lymphocytes Auto (Unsp spec) [#/Vol] 1.39 10*3/uL 0.83-4.51 [facility] Basophil percentageOrdered B y: Callie Salmeron on 07-25-2023 Basophils/100 WBC (Bld) 1.4 % 0-1 [facility] Bilirubin [Mass/Vol] 0.40 mg/dL 0.20-1.00 [facility] Comment on above: For patients on eltr ombopag therapy, use of Dimension [place] TBIL is not recommended. Chloride [Moles/Vol] 109 mmol/L 98-107 [facility] Eosinophils/100 WBC (Bld) 3.0 % 0-5 [facility] Glucose [Mass/Vol] 102 mg/dL 74-106 [facility] Comment on above: Fasting Glucose resu lt from 100 to 125 mg/dL suggests IMPAIRED HOMEOSTASIS per A.D.A. criteria. Neutrophils (Bld) [#/Vol] 4.6 10*3/uL 2.0-7.7 [facility] Neutrophils/100 WBC (Bld) 65.4 % 47-70 [facility] Potassium [Moles/Vol] 3.4 mmol/L 3.5-5.1 [facility] Protein [Mass/Vol] 6.7 g/dL 6.4-8.2 [facility] Sodium [Moles/Vol] 138 mmol/L 136-145 [facility] WBC (Bld) [#/Vol] 7.0 10*3/uL 4.4-11.0 [facility] Blood erythrocytes count (nu mber/volume)Ordered By: Callie Salmeron on 07-25-2023 RBC (Bld) [#/Vol] 4.65 10*6/uL 4.2-5.4 [facility] Blood hemoglobin measurement (mass/volume)Ordered By: Callie Salmeron on 07-25-2023 Hemoglobin (Bld) [Mass/Vol] 13.9 g/dL 12.0-15.0 [facility] Blood lymphocytes/100 leukoc ytesOrdered By: Callie Salmeron on 07-25-2023 Lymphocytes/100 WBC (Bld) 19.9 % 19-41 [facility] Blood monocytes/100 leukocyt esOrdered By: Callie Salmeron on 07-25-2023 Monocytes/100 WBC (Bld) 10.0 % 0-10 [facility] Blood platelet mean volumeOr dered By: Callie Salmeron on 07-25-2023 Platelet mean volume (Bld) [Entitic vol] 10.4 fL 6.2-12.0 [facility] Determination of erythrocyte mean corpuscular volume (MCV)Ordered By: Callie Salmeron on 07-25-2023 MCV (RBC) [Entitic vol] 89.0 fL 81-99 [facility] Hematocrit Auto (Bld) [Volum e fraction]Ordered By: Callie Salmeron on 07-25-2023 Hematocrit (Bld) [Volume fraction] 41.4 % 37-47 [facility] Laboratory - Chemistry and C hemistry - challengeOrdered By: Callie Salmeron on 07-25-2023 ALP [Catalytic activity/Vol] 171 U/L 45-117 [facility] ALT [Catalytic activity/Vol] 64 U/L 13-56 [facility] CO2 [Moles/Vol] 25.0 mmol/L 21.0-32.0 [facility] Globulin (S) [Mass/Vol] 3.2 g/dL 2.2-4.2 [facility] Lipase [Catalytic activity/Vol] 16 U/L 13-75 [facility] Comment on above: Please note:LIPASE r evised reference range effective 22. New Lipase methodology. Expected to produce lower values than the previous assay method. NEW Reference Range: 13 - 75 U/L Urea nitrogen/Creatinine [Mass ratio] 15.7 mg/mg 10-20 [facility] Laboratory - Hematology and Cell countsOrdered By: Callie Salmeron on 07-25-2023 Erythrocyte distribution width (RBC) [Entitic vol] 42.7 fL 35.1-43.9 [facility] Erythrocyte distribution width (RBC) [Ratio] 13.0 % 11.6-14.6 [facility] Immature granulocytes/100 WBC (Bld) 0.300 % 0.0-0.9 [facility] Comment on above: IG% - Immature Granu locytes (promyelocytes, myelocytes and metamyelocytes) > 1% indicates that a LEFT SHIFT is Present. MCH (RBC) [Entitic mass] 29.9 pg 27.0-32.0 [facility] Nucleated RBC/100 WBC (Bld) [Ratio] 0 % 0-5 [facility] MCHC Auto (RBC) [Mass/Vol]Or dered By: Callie Salmeron on 07-25-2023 MCHC (RBC) [Mass/Vol] 33.6 g/dL 32-36 [facility] No Panel InformationOrdered By: Callie Salmeron on 07-25-2023 Estimated Creatinine Clearance Calc 46.90 ml/min [facility] Estimated GFR (MDRD) Amer 96 mL/min >60 [facility] Comment on above: GFR Calc Estimated GFR (MDRD) Non-Af Amer 79 mL/min >60 [facility] Comment on above: Non- GFR Calc Platelets bldOrdered By: Angeline Salmeron on 07-25-2023 Platelets (Bld) [#/Vol] 202 10*3/uL 150-450 [facility] Serum or plasma albumin lavon urement (mass/volume)Ordered By: Callie Salmeron on 07-25-2023 Albumin [Mass/Vol] 3.5 g/dL 3.2-5.0 [facility] Serum or plasma albumin/glob ulin mass ratioOrdered By: Callie Salmeron on 07-25-2023 Albumin/Globulin [Mass ratio] 1.1 {ratio} 0.9-2.4 [facility] Serum or plasma calcium lavon urement (mass/volume)Ordered By: Callie Salmeron on 07-25-2023 Calcium [Mass/Vol] 9.0 mg/dL 8.5-10.1 [facility] Serum or plasma creatinine m easurement (mass/volume)Ordered By: Callie Salmeron on 07-25-2023 Creatinine [Mass/Vol] 0.76 mg/dL 0.55-1.02 [facility] Comment on above: The validity of the calculated GFR & GFRAA in patients over 70 years has not been determined. Clinical correlation is essential. Serum or plasma urea nitroge n measurement (mass/volume)Ordered By: Callie Salmeron on 07-25-2023 Urea nitrogen [Mass/Vol] 12 mg/dL 7-18 [facility] Thin prep Papanicolaou smear with manual screeningOrdered By: Callie Salmeron on 07-25-2023 Thin prep Papanicolaou smear with manual screening 18 U/L 15-37 [facility] Thin prep Papanicolaou smear with manual screening 4 5-15 [facility] Basophil percentageOrdered B y: Hiren Awad on 04-19-2023 Basophil percentage 10-25 SEEN /hpf 0-5 [facility] Bilirubin Test strip Ql (U)O rdered By: Hiren Awad on 04-19-2023 Bilirubin Ql (U) Negative Negative [facility] Culture, urineOrdered By: St castro Awad on 04-19-2023 Bacteria identified Cx Nom (U) Escherichia coli [facility] Bacteria identified Cx Nom (U) Escherichia coli [facility] Ketones Test strip Ql (U)Ord ered By: Hiren Awad on 04-19-2023 Ketones Ql (U) Negative Negative [facility] Laboratory - Chemistry and C hemistry - challengeon 04-19-2023 Bilirubin Ql (U) Negative [facility] Glucose Ql (U) Negative [facility] Ketones Ql (U) Negative [facility] pH (U) 6.0 [pH] [facility] Specific gravity (U) [Rel density] 1.020 [facility] Urobilinogen (U) [Mass/Vol] Negative [facility] Laboratory - Hematology and Cell countson 04-19-2023 Hemoglobin Ql (U) Hemolyzed [facility] Laboratory - Specimen inform ationon 04-19-2023 Clarity (U) Clear [facility] Color (U) Natalia [facility] Laboratory - Urinalysison Nitrite Ql (U) Negative [facility] Protein Ql (U) Negative [facility] Mucus LM Ql (Urine sed)Order ed By: Hiren Awad on 04-19-2023 Mucus Ql (Urine sed) 0 SEEN /hpf [facility] Nitrite Test strip Ql (U)Ord ered By: Hiren Awad on 04-19-2023 Nitrite Ql (U) Negative Negative [facility] No Panel Informationon 04-19 Urine Leukocytes Positive [facility] Urine Non-Hemolyzed Blood Moderate [facility] Protein Test strip Ql (U)Ord ered By: Hiren Awad on 04-19-2023 Protein Ql (U) 15 mg/dl Negative [facility] Squamous epithelial cells de tection in urine sediment by light microscopyOrdered By: Hiren Awad on 04-19-2023 Epithelial cells.squamous LM Ql (Urine sed) 0 SEEN /hpf 5-10 [facility] Urine blood detectionOrdered By: Hiren Awad on 04-19-2023 RBC Ql (U) 25 /ul Negative [facility] RBC Ql (U) 0 SEEN /hpf 0-5 [facility] Urine clarityOrdered By: Narendra Awad on 04-19-2023 Clarity (U) Clear Clear [facility] Urine color determinationOrd ered By: Hiren Awad on 04-19-2023 Color (U) Yellow Yellow [facility] Urine glucose detectionOrder ed By: Hiren Awad on 04-19-2023 Glucose Ql (U) Normal mg/dl Normal [facility] Urine leukocyte esterase det ection by dipstickOrdered By: Hiren Awad on 04-19-2023 Leukocyte esterase Test strip Ql (U) 500 /ul Negative [facility] Urine pHOrdered By: Hiren brown on 04-19-2023 pH (U) 6.0 [pH] 5.0 - 8.0 [facility] Urine sediment bacteria coun t by microscopy (number/high power field)Ordered By: Hiren Awad on 04-19-2023 Bacteria LM.HPF (Urine sed) [#/Area] 0 /[HPF] None Seen [facility] Urine specific gravity measu rementOrdered By: Hiren Awad on 04-19-2023 Specific gravity (U) [Rel density] 1.020 1.002-1.030 [facility] Urobilinogen Auto test strip Ql (U)Ordered By: Hiren Awad on 04-19-2023 Urobilinogen Ql (U) Normal mg/dl Normal [facility] Basophil percentageOrdered B y: Ez Spencer on 03-08-2023 Basophil percentage < 0.9 mg/dL 0.55-1.02 [facility] No Panel InformationOrdered By: Ez Spencer on 03-08-2023 Bedside Estimated GFR (eGFR) > 60.0000 mL/min >60 [facility] Laboratory - Chemistry and C hemistry - challengeOrdered By: Ez Spencer on 02-24-2023 Cobalamin (Vitamin B12) [Mass/Vol] 691 pg/mL 211-911 [facility] No Panel InformationOrdered By: Ez Spencer on 02-24-2023 Miscellaneous Test See comment [facility] Comment on above: TEST RESULT LIMITSIB D Expanded Panel Marissa 4 units 0-50 Negative <45 Equivocal 45 - 50 Positive >50 ACCA 22 units 0-90 Negative <80 Equivocal 80 - 90 Positive >90 ALCA 1 units 0-60 Negative <55 Equivocal 55 - 60 Positive >60 AMCA 14 units 0-100 Negative < 90 Equivocal 90 - 100 Positive >100 This test was developed and its performance characteristics determined by [facility]. It has not been cleared or approved by the Food and Drug Administration. The FDA has determined that such clearance or approval is not necessary.Atypical pANCA Negative Negative Comments Pattern is not suggestive of Inflammatory Bowel Disease TESTING PERFORMED AT [facility]. ORIGINAL REPORT ON FILE IN LAB CONTAINS ADDITIONAL TEST SITE INFORMATION. Stool Pancreatic Elastase 76 >200 [facility] Comment on above: Result Units: ug Yulia st./gResults verified by repeat testing Severe Pancreatic Insufficiency: <100 Moderate Pancreatic Insufficiency: 100 - 200 Normal: >200Performed at: [address] [id number] Director: Jon Cordova MD, Phone: [phone] Serum or plasma folate measu rement (mass/volume)Ordered By: Ez Spencer on 02-24-2023 Folate [Mass/Vol] 24.40 ng/mL 3.1-55.4 [facility] Absolute lymphocyte countOrd ered By: Dr. Waller on 02-01-2023 Lymphocytes Auto (Unsp spec) [#/Vol] 1.62 10*3/uL 0.83-4.51 [facility] Basophil percentageOrdered B y: Dr. Waller on 02-01-2023 Basophils/100 WBC (Bld) 1.1 % 0-1 [facility] Bilirubin [Mass/Vol] 0.60 mg/dL 0.20-1.00 [facility] Comment on above: For patients on eltr ombopag therapy, use of Dimension [place] TBIL is not recommended. Chloride [Moles/Vol] 105 mmol/L 98-107 [facility] Eosinophils/100 WBC (Bld) 2.2 % 0-5 [facility] Glucose [Mass/Vol] 99 mg/dL 74-106 [facility] Neutrophils (Bld) [#/Vol] 4.9 10*3/uL 2.0-7.7 [facility] Neutrophils/100 WBC (Bld) 65.9 % 47-70 [facility] Potassium [Moles/Vol] 3.8 mmol/L 3.5-5.1 [facility] Protein [Mass/Vol] 7.2 g/dL 6.4-8.2 [facility] Sodium [Moles/Vol] 140 mmol/L 136-145 [facility] WBC (Bld) [#/Vol] 7.4 10*3/uL 4.4-11.0 [facility] Blood erythrocytes count (nu mber/volume)Ordered By: Dr. Waller on 02-01-2023 RBC (Bld) [#/Vol] 4.67 10*6/uL 4.2-5.4 [facility] Blood hemoglobin measurement (mass/volume)Ordered By: Dr. Waller on 02-01-2023 Hemoglobin (Bld) [Mass/Vol] 13.9 g/dL 12.0-15.0 [facility] Blood lymphocytes/100 leukoc ytesOrdered By: Dr. Waller on 02-01-2023 Lymphocytes/100 WBC (Bld) 21.9 % 19-41 [facility] Blood monocytes/100 leukocyt esOrdered By: Dr. Waller on 02-01-2023 Monocytes/100 WBC (Bld) 8.6 % 0-10 [facility] Blood platelet mean volumeOr dered By: Dr. Waller on 02-01-2023 Platelet mean volume (Bld) [Entitic vol] 10.7 fL 6.2-12.0 [facility] Clostridium difficile detect ion by polymerase chain reactionOrdered By: Dain Waller on 02-01-2023 C. difficile DNA OUMAR+probe Ql (Unsp spec) [facility] Clostridium difficile detect ion by polymerase chain reactionOrdered By: Dr. Waller on 02-01-2023 C. difficile DNA OUMAR+probe Ql (Unsp spec) [facility] Determination of erythrocyte mean corpuscular volume (MCV)Ordered By: Dr. Waller on 02-01-2023 MCV (RBC) [Entitic vol] 91.4 fL 81-99 [facility] Hematocrit Auto (Bld) [Volum e fraction]Ordered By: Dr. Waller on 02-01-2023 Hematocrit (Bld) [Volume fraction] 42.7 % 37-47 [facility] Laboratory - Chemistry and C hemistry - challengeOrdered By: Dr. Waller on 02-01-2023 ALP [Catalytic activity/Vol] 128 U/L 45-117 [facility] ALT [Catalytic activity/Vol] 20 U/L 13-56 [facility] CO2 [Moles/Vol] 25.0 mmol/L 21.0-32.0 [facility] Globulin (S) [Mass/Vol] 3.4 g/dL 2.2-4.2 [facility] Urea nitrogen/Creatinine [Mass ratio] 20.1 mg/mg 10-20 [facility] Laboratory - Hematology and Cell countsOrdered By: Dr. Waller on 02-01-2023 Erythrocyte distribution width (RBC) [Entitic vol] 42.7 fL 35.1-43.9 [facility] Erythrocyte distribution width (RBC) [Ratio] 12.8 % 11.6-14.6 [facility] Immature granulocytes/100 WBC (Bld) 0.300 % 0.0-0.9 [facility] Comment on above: IG% - Immature Granu locytes (promyelocytes, myelocytes and metamyelocytes) > 1% indicates that a LEFT SHIFT is Present. MCH (RBC) [Entitic mass] 29.8 pg 27.0-32.0 [facility] Nucleated RBC/100 WBC (Bld) [Ratio] 0 % 0-5 [facility] MCHC Auto (RBC) [Mass/Vol]Or dered By: Dr. Waller on 02-01-2023 MCHC (RBC) [Mass/Vol] 32.6 g/dL 32-36 [facility] No Panel InformationOrdered By: Dr. Waller on 02-01-2023 Estimated Creatinine Clearance Calc 1.96 ml/min [facility] Estimated GFR (MDRD) Amer 98 mL/min >60 [facility] Comment on above: GFR Calc Estimated GFR (MDRD) Non-Af Amer 81 mL/min >60 [facility] Comment on above: Non- GFR Calc Platelets bldOrdered By: Dr. Waller on 02-01-2023 Platelets (Bld) [#/Vol] 238 10*3/uL 150-450 [facility] Serum or plasma albumin lavon urement (mass/volume)Ordered By: Dr. Waller on 02-01-2023 Albumin [Mass/Vol] 3.8 g/dL 3.2-5.0 [facility] Serum or plasma albumin/glob ulin mass ratioOrdered By: Dr. Waller on 02-01-2023 Albumin/Globulin [Mass ratio] 1.1 {ratio} 0.9-2.4 [facility] Serum or plasma calcium lavon urement (mass/volume)Ordered By: Dr. Waller on 02-01-2023 Calcium [Mass/Vol] 9.2 mg/dL 8.5-10.1 [facility] Serum or plasma creatinine m easurement (mass/volume)Ordered By: Dr. Waller on 02-01-2023 Creatinine [Mass/Vol] 0.75 mg/dL 0.55-1.02 [facility] Comment on above: The validity of the calculated GFR & GFRAA in patients over 70 years has not been determined. Clinical correlation is essential. Serum or plasma urea nitroge n measurement (mass/volume)Ordered By: Dr. Waller on 02-01-2023 Urea nitrogen [Mass/Vol] 15 mg/dL 7-18 [facility] Thin prep Papanicolaou smear with manual screeningOrdered By: Dr. Waller on 02-01-2023 Thin prep Papanicolaou smear with manual screening 18 U/L 15-37 [facility] Thin prep Papanicolaou smear with manual screening 10 5-15 [facility] Laboratory - Chemistry and C hemistry - challengeOrdered By: Ez Spencer on 01-04-2023 Amylase [Catalytic activity/Vol] 10 U/L 5-55 [facility] No Panel InformationOrdered By: Ez Spencer on 01-04-2023 Vitamin D 25-Hydroxy 67.1 ng/mL [facility] Comment on above: Vitamin D 25(OH) Sta tus Range Deficiency <20 ng/mL (50nmol/L) Insufficiency 20 - 30 ng/mL (50 - 75 nmol/L) Sufficiency 30 - 100 ng/mL (75 - 250 nmol/L) Toxicity >100 ng/mL (>250 nmol/L) Serum or plasma C reactive p rotein measurement (mass/volume)Ordered By: Ez Spencer on 01-04-2023 CRP [Mass/Vol] mg/L 0.0-3.0 [facility] Comment on above: C-Reactive Protein ( CRP) provides useful information for thediagnosis, therapy and monitoring of inflammatory processesand associated diseases. For the evaluation of Relative Riskfor Cardiovascular Disease, a High Sensitivity CRP (HSCRP)should be ordered. Serum or plasma calcitriol m easurement (mass/volume)Ordered By: Ez Spencer on 01-04-2023 1,25-dihydroxyvitamin D3 [Mass/Vol] 79.3 pg/mL 24.8-81.5 [facility] Comment on above: Performed at: [address] [id number] Director: Jon Cordova MD, Phone: [phone] Absolute lymphocyte countOrd ered By: Dr. Dial on 10-16-2022 Lymphocytes Auto (Unsp spec) [#/Vol] 1.71 10*3/uL 0.83-4.51 [facility] Basophil percentageOrdered B y: Dr. Dial on 10-16-2022 Basophils/100 WBC (Bld) 1.0 % 0-1 [facility] Bilirubin [Mass/Vol] 0.40 mg/dL 0.20-1.00 [facility] Comment on above: For patients on eltr ombopag therapy, use of Dimension [place] TBIL is not recommended. Chloride [Moles/Vol] 103 mmol/L 98-107 [facility] Eosinophils/100 WBC (Bld) 3.9 % 0-5 [facility] Glucose [Mass/Vol] 100 mg/dL 74-106 [facility] Comment on above: Fasting Glucose resu lt from 100 to 125 mg/dL suggests IMPAIRED HOMEOSTASIS per A.D.A. criteria. Neutrophils (Bld) [#/Vol] 6.8 10*3/uL 2.0-7.7 [facility] Neutrophils/100 WBC (Bld) 69.0 % 47-70 [facility] Potassium [Moles/Vol] 3.6 mmol/L 3.5-5.1 [facility] Protein [Mass/Vol] 7.3 g/dL 6.4-8.2 [facility] Sodium [Moles/Vol] 139 mmol/L 136-145 [facility] WBC (Bld) [#/Vol] 9.9 10*3/uL 4.4-11.0 [facility] Blood erythrocytes count (nu mber/volume)Ordered By: Dr. Dial on 10-16-2022 RBC (Bld) [#/Vol] 4.43 10*6/uL 4.2-5.4 [facility] Blood hemoglobin measurement (mass/volume)Ordered By: Dr. Dial on 10-16-2022 Hemoglobin (Bld) [Mass/Vol] 13.3 g/dL 12.0-15.0 [facility] Blood lymphocytes/100 leukoc ytesOrdered By: Dr. Dial on 10-16-2022 Lymphocytes/100 WBC (Bld) 17.3 % 19-41 [facility] Blood monocytes/100 leukocyt esOrdered By: Dr. Dial on 10-16-2022 Monocytes/100 WBC (Bld) 8.2 % 0-10 [facility] Blood platelet mean volumeOr dered By: Dr. Dial on 10-16-2022 Platelet mean volume (Bld) [Entitic vol] 11.1 fL 6.2-12.0 [facility] Determination of erythrocyte mean corpuscular volume (MCV)Ordered By: Dr. Dial on 10-16-2022 MCV (RBC) [Entitic vol] 92.1 fL 81-99 [facility] Erythrocyte sedimentation ra teOrdered By: Dr. Dial on 10-16-2022 ESR (Bld) [Velocity] 6 mm/h 0-30 [facility] Hematocrit Auto (Bld) [Volum e fraction]Ordered By: Dr. Dial on 10-16-2022 Hematocrit (Bld) [Volume fraction] 40.8 % 37-47 [facility] Laboratory - Chemistry and C hemistry - challengeOrdered By: Dr. Dial on 10-16-2022 ALP [Catalytic activity/Vol] 120 U/L 45-117 [facility] ALT [Catalytic activity/Vol] 21 U/L 13-56 [facility] CO2 [Moles/Vol] 29.0 mmol/L 21.0-32.0 [facility] Globulin (S) [Mass/Vol] 3.7 g/dL 2.2-4.2 [facility] Urea nitrogen/Creatinine [Mass ratio] 24.0 mg/mg 10-20 [facility] Laboratory - Hematology and Cell countsOrdered By: Dr. Dial on 10-16-2022 Erythrocyte distribution width (RBC) [Entitic vol] 44.3 fL 35.1-43.9 [facility] Erythrocyte distribution width (RBC) [Ratio] 13.2 % 11.6-14.6 [facility] Immature granulocytes/100 WBC (Bld) 0.600 % 0.0-0.9 [facility] Comment on above: IG% - Immature Granu locytes (promyelocytes, myelocytes and metamyelocytes) > 1% indicates that a LEFT SHIFT is Present. MCH (RBC) [Entitic mass] 30.0 pg 27.0-32.0 [facility] Nucleated RBC/100 WBC (Bld) [Ratio] 0 % 0-5 [facility] MCHC Auto (RBC) [Mass/Vol]Or dered By: Dr. Dial on 10-16-2022 MCHC (RBC) [Mass/Vol] 32.6 g/dL 32-36 [facility] No Panel InformationOrdered By: Dr. Dial on 10-16-2022 Anti-Nuclear Antibody Screen Negative Negative [facility] Comment on above: Performed at: [facility] [employer] [id number] Director: Sharad Arreaga PhD, Phone: [phone] Estimated GFR (MDRD) Amer 98 mL/min >60 [facility] Comment on above: GFR Calc Estimated GFR (MDRD) Non-Af Amer 81 mL/min >60 [facility] Comment on above: Non- GFR Calc Hepatitis B Surface Antigen Non-Reactive Nonreactive [facility] Hepatitis C Antibody Non-Reactive Nonreactive [facility] Comment on above: Non Reactive: < 0.8 Equivocal: >/= 0.8 to < 1.0 Reactive: >/= 1.0The CDC recommends that a reactive/equivocal HCV antibody result be followed up by the HCV Nucleic Acid Amplificationtest (045499) Miscellaneous Test See comment [facility] Comment on above: TEST RESULT LIMITSAn ti-PR3 Antibodies <0.2 units 0.0-0.9 TESTING PERFORMED AT [facility]. ORIGINAL REPORT ON FILE IN LAB CONTAINS ADDITIONAL TEST SITE INFORMATION. Platelets bldOrdered By: Dr. Dial on 10-16-2022 Platelets (Bld) [#/Vol] 305 10*3/uL 150-450 [facility] Serum cyclic citrullinated p eptide IgG antibody assay (units/volume)Ordered By: Dr. Dial on 10-16-2022 Cyclic citrullinated peptide IgG Qn 5 units 0-19 [facility] Comment on above: Negative <20 Weak po sitive 20 - 39 Moderate positive 40 - 59 Strong positive >59Performed at: [address] [place] [id number] Director: Kt Noel PhD, Phone: [phone] at: [address] [id number] Director: Sharad Arreaga PhD, Phone: [phone] Serum hepatitis B virus surf carito antibody IgG detectionOrdered By: Dr. Dial on 10-16-2022 HBV surface IgG Ql (S) Non-Reactive [facility] Comment on above: Non Reactive: Incons istent with immunity less than <10 mIU/mL Reactive: Consistent with immunity greater than or equal to 10 mIU/mL Serum or plasma C reactive p rotein measurement (mass/volume)Ordered By: Dr. Dial on 10-16-2022 CRP [Mass/Vol] 12.90 mg/L 0.0-3.0 [facility] Comment on above: C-Reactive Protein ( CRP) provides useful information for thediagnosis, therapy and monitoring of inflammatory processesand associated diseases. For the evaluation of Relative Riskfor Cardiovascular Disease, a High Sensitivity CRP (HSCRP)should be ordered. Serum or plasma albumin lavon urement (mass/volume)Ordered By: Dr. Dial on 10-16-2022 Albumin [Mass/Vol] 3.6 g/dL 3.2-5.0 [facility] Serum or plasma albumin/glob ulin mass ratioOrdered By: Dr. Dial on 10-16-2022 Albumin/Globulin [Mass ratio] 1.0 {ratio} 0.9-2.4 [facility] Serum or plasma calcium lavon urement (mass/volume)Ordered By: Dr. Dial on 10-16-2022 Calcium [Mass/Vol] 8.9 mg/dL 8.5-10.1 [facility] Serum or plasma creatinine m easurement (mass/volume)Ordered By: Dr. Dial on 10-16-2022 Creatinine [Mass/Vol] 0.75 mg/dL 0.55-1.02 [facility] Comment on above: The validity of the calculated GFR & GFRAA in patients over 70 years has not been determined. Clinical correlation is essential. Serum or plasma urea nitroge n measurement (mass/volume)Ordered By: Dr. Dial on 10-16-2022 Urea nitrogen [Mass/Vol] 18 mg/dL 7-18 [facility] Serum rheumatoid factor dete ctionOrdered By: Dr. Dial on 10-16-2022 Rheumatoid factor Ql (S) < 10.0 IU/mL <15 [facility] Thin prep Papanicolaou smear with manual screeningOrdered By: Dr. Dial on 10-16-2022 Thin prep Papanicolaou smear with manual screening 18 U/L 15-37 [facility] Thin prep Papanicolaou smear with manual screening 7 5-15 [facility] Thin prep Papanicolaou smear with manual screening Negative . [facility] Comment on above: HLA-B*27 [id number] allele interpretation for all loci based on IMGT/HLAdatabase version 3.44This test was developed and its performance characteristicsdetermined by [employer]. It has not been cleared or approvedby the Food and Drug Administration.[facility] CLIA ID Number [id number] test was performed using PCR (Polymerase ChainReaction)/SSOP (Sequence Specific Oligonucleotide Probes)technique. SBT (Sequence Based Typing) and/or SSP(Sequence Specific Primers) may be used as supplementalmethods when necessary. Please contact [facility] [employer] at if you have any questions. Director of [facility] Dr Kt Noel, PhD Basophil percentageon 2021 Bilirubin [Mass/Vol] 0.40 mg/dL 0.20-1.00 [facility] Work Phone: Comment on above: For patients on eltr ombopag therapy, use of Dimension [place] TBIL is not recommended. Chloride [Moles/Vol] 105 mmol/L 98-107 [facility] Work Phone: Glucose [Mass/Vol] 105 mg/dL 74-106 [facility] Work Phone: Comment on above: Fasting Glucose resu lt from 100 to 125 mg/dL suggests IMPAIRED HOMEOSTASIS per A.D.A. criteria. Potassium [Moles/Vol] 4.1 mmol/L 3.5-5.1 [facility] Work Phone: Protein [Mass/Vol] 6.7 g/dL 6.4-8.2 [facility] Work Phone: Sodium [Moles/Vol] 141 mmol/L 136-145 [facility] Work Phone: WBC (Bld) [#/Vol] 7.3 10*3/uL 4.4-11.0 [facility] Work Phone: Blood erythrocytes count (nu mber/volume)on 04-06-2022 RBC (Bld) [#/Vol] 4.58 10*6/uL 4.2-5.4 [facility] Work Phone: Blood hemoglobin measurement (mass/volume)on 04-06-2022 Hemoglobin (Bld) [Mass/Vol] 14.2 g/dL 12.0-15.0 [facility] Work Phone: Blood platelet mean volumeon 04-06-2022 Platelet mean volume (Bld) [Entitic vol] 11.0 fL 6.2-12.0 [facility] Work Phone: Determination of erythrocyte mean corpuscular volume (MCV)on 04-06-2022 MCV (RBC) [Entitic vol] 91.7 fL 81-99 [facility] Work Phone: Hematocrit Auto (Bld) [Volum e fraction]on 04-06-2022 Hematocrit (Bld) [Volume fraction] 42.0 % 37-47 [facility] Work Phone: Laboratory - Chemistry and C hemistry - challengeon 04-06-2022 ALP [Catalytic activity/Vol] 110 U/L 45-117 [facility] Work Phone: ALT [Catalytic activity/Vol] 21 U/L 13-56 [facility] Work Phone: CO2 [Moles/Vol] 32.0 mmol/L 21.0-32.0 [facility] Work Phone: Globulin (S) [Mass/Vol] 3.2 g/dL 2.2-4.2 [facility] Work Phone: Urea nitrogen/Creatinine [Mass ratio] 23.4 mg/mg 10-20 [facility] Work Phone: Laboratory - Hematology and Cell countson 04-06-2022 Erythrocyte distribution width (RBC) [Entitic vol] 43.4 fL 35.1-43.9 [facility] Work Phone: Erythrocyte distribution width (RBC) [Ratio] 13.0 % 11.6-14.6 [facility] Work Phone: MCH (RBC) [Entitic mass] 31.0 pg 27.0-32.0 [facility] Work Phone: MCHC Auto (RBC) [Mass/Vol]on 04-06-2022 MCHC (RBC) [Mass/Vol] 33.8 g/dL 32-36 [facility] Work Phone: No Panel Informationon 04-06 Estimated GFR (MDRD) Amer 109 mL/min >60 [facility] Work Phone: Comment on above: GFR Calc Estimated GFR (MDRD) Non-Af Amer 90 mL/min >60 [facility] Work Phone: Comment on above: Non- GFR Calc Platelets bldon 04-06-2022 Platelets (Bld) [#/Vol] 230 10*3/uL 150-450 [facility] Work Phone: Serum or plasma albumin lavon urement (mass/volume)on 04-06-2022 Albumin [Mass/Vol] 3.5 g/dL 3.2-5.0 [facility] Work Phone: Serum or plasma albumin/glob ulin mass ratioon 04-06-2022 Albumin/Globulin [Mass ratio] 1.1 {ratio} 0.9-2.4 [facility] Work Phone: Serum or plasma calcium lavon urement (mass/volume)on 04-06-2022 Calcium [Mass/Vol] 9.2 mg/dL 8.5-10.1 [facility] Work Phone: Serum or plasma creatinine m easurement (mass/volume)on 04-06-2022 Creatinine [Mass/Vol] 0.68 mg/dL 0.55-1.02 [facility] Work Phone: Comment on above: The validity of the calculated GFR & GFRAA in patients over 70 years has not been determined. Clinical correlation is essential. Serum or plasma urea nitroge n measurement (mass/volume)on 04-06-2022 Urea nitrogen [Mass/Vol] 16 mg/dL 7-18 [facility] Work Phone: Thin prep Papanicolaou smear with manual screeningon 04-06-2022 Thin prep Papanicolaou smear with manual screening 14 U/L 15-37 [facility] Work Phone: Thin prep Papanicolaou smear with manual screening 4 5-15 [facility] Work Phone: No Panel Informationon 12-22 Enteric Bacteriology [facility] Work Phone: Miscellaneous Test See comment [facility] Work Phone: Comment on above: TEST RESULT LIMITSPa ncreatic Elastase, Fecal 170 Low ug Elast./g >200 Severe Pancreatic Insufficiency: <100 Moderate Pancreatic Insufficiency: 100 - 200 Normal: >200 TESTING PERFORMED AT [facility]. ORIGINAL REPORT ON FILE IN LAB CONTAINS ADDITIONAL TEST SITE INFORMATION. Stool Calprotectin 32 ug/g 0-120 [facility] Work Phone: Comment on above: Concentration Interp retation Follow-Up<16 - 50 ug/g Normal None>50 -120 ug/g Borderline Re-evaluate in 4-6 weeks >120 ug/g Abnormal Repeat as clinically indicatedPerformed at: [facility] [id number] Director: Sharad Arreaga PhD, Phone: [phone] at: [facility] [id number] Director: Jon Cordova MD, Phone: [phone] Stool Neutral Fats Increased . [facility] Work Phone: Comment on above: Normal (<60 Droplets /HPF) Qualitative fecal fat or lip idson 12-22-2021 Fat Ql (Stl) Increased . [facility] Work Phone: Comment on above: Normal (<100 Droplet s/HPF) Absolute lymphocyte counton 12-19-2021 Lymphocytes Auto (Unsp spec) [#/Vol] 2.11 10*3/uL 0.83-4.51 [facility] Work Phone: Atypical perinuclear antineu trophil cytoplasmic antibodies measurementon 12-19-2021 Neutrophil cytoplasmic Ab.perinuclear.atypic al IF (S) [Titer] 1:20 titer Neg:<1:20 [facility] Work Phone: Comment on above: The atypical pANCA p attern has been observed in asignificant percentage of patients with ulcerative colitis,primary sclerosing cholangitis and autoimmune hepatitis. Basophil percentageon 2021 Basophil percentage < 0.2 AI 0.0-0.9 [facility] Work Phone: Basophils/100 WBC (Bld) 1.4 % 0-1 [facility] Work Phone: Bilirubin [Mass/Vol] 0.40 mg/dL 0.20-1.00 [facility] Work Phone: Comment on above: For patients on eltr ombopag therapy, use of Dimension [place] TBIL is not recommended. Chloride [Moles/Vol] 106 mmol/L 98-107 [facility] Work Phone: Eosinophils/100 WBC (Bld) 2.1 % 0-5 [facility] Work Phone: Glucose [Mass/Vol] 100 mg/dL 74-106 [facility] Work Phone: Comment on above: Fasting Glucose resu lt from 100 to 125 mg/dL suggests IMPAIRED HOMEOSTASIS per A.D.A. criteria. Neutrophils (Bld) [#/Vol] 5.1 10*3/uL 2.0-7.7 [facility] Work Phone: Neutrophils/100 WBC (Bld) 63.1 % 47-70 [facility] Work Phone: Potassium [Moles/Vol] 3.8 mmol/L 3.5-5.1 [facility] Work Phone: Protein [Mass/Vol] 7.5 g/dL 6.4-8.2 [facility] Work Phone: Sodium [Moles/Vol] 137 mmol/L 136-145 [facility] Work Phone: WBC (Bld) [#/Vol] 8.1 10*3/uL 4.4-11.0 [facility] Work Phone: Blood erythrocytes count (nu mber/volume)on 12-19-2021 RBC (Bld) [#/Vol] 4.63 10*6/uL 4.2-5.4 [facility]: Blood hemoglobin measurement (mass/volume)on 12-19-2021 Hemoglobin (Bld) [Mass/Vol] 13.9 g/dL 12.0-15.0 [facility] Work Phone: Blood lymphocytes/100 leukoc yteson 12-19-2021 Lymphocytes/100 WBC (Bld) 26.0 % 19-41 [facility] Work Phone: Blood monocytes/100 leukocyt eson 12-19-2021 Monocytes/100 WBC (Bld) 7.2 % 0-10 [facility] Work Phone: Blood platelet mean volumeon 12-19-2021 Platelet mean volume (Bld) [Entitic vol] 11.2 fL 6.2-12.0 [facility] Work Phone: Determination of erythrocyte mean corpuscular volume (MCV)on 12-19-2021 MCV (RBC) [Entitic vol] 90.3 fL 81-99 [facility] Work Phone: Erythrocyte sedimentation ra hermann 12-19-2021 ESR (Bld) [Velocity] 4 mm/h 0-30 [facility] Work Phone: Hematocrit Auto (Bld) [Volum e fraction]on 12-19-2021 Hematocrit (Bld) [Volume fraction] 41.8 % 37-47 [facility] Work Phone: Laboratory - Chemistry and C hemistry - challengeon 12-19-2021 ALP [Catalytic activity/Vol] 145 U/L 45-117 [facility] Work Phone: ALT [Catalytic activity/Vol] 23 U/L 13-56 [facility] Work Phone: CO2 [Moles/Vol] 29.0 mmol/L 21.0-32.0 [facility] Work Phone: Globulin (S) [Mass/Vol] 3.5 g/dL 2.2-4.2 [facility] Work Phone: Urea nitrogen/Creatinine [Mass ratio] 22.0 mg/mg 10-20 [facility] Work Phone: Laboratory - Hematology and Cell countson 12-19-2021 Erythrocyte distribution width (RBC) [Entitic vol] 41.8 fL 35.1-43.9 [facility] Work Phone: Erythrocyte distribution width (RBC) [Ratio] 12.7 % 11.6-14.6 [facility] Work Phone: Immature granulocytes/100 WBC (Bld) 0.200 % 0.0-0.9 [facility] Work Phone: Comment on above: IG% - Immature Granu locytes (promyelocytes, myelocytes and metamyelocytes) > 1% indicates that a LEFT SHIFT is Present. MCH (RBC) [Entitic mass] 30.0 pg 27.0-32.0 [facility] Work Phone: Nucleated RBC/100 WBC (Bld) [Ratio] 0 % 0-5 [facility] Work Phone: MCHC Auto (RBC) [Mass/Vol]on 12-19-2021 MCHC (RBC) [Mass/Vol] 33.3 g/dL 32-36 [facility] Work Phone: No Panel Informationon 12-19 Centromere B Antibody <0.2 AI 0.0-0.9 [facility] Work Phone: Estimated GFR (MDRD) Amer 101 mL/min >60 [facility] Work Phone: Comment on above: GFR Calc Estimated GFR (MDRD) Non-Af Amer 84 mL/min >60 [facility] Work Phone: Comment on above: Non- GFR Calc Immunoglobulin E 6 IU/mL 6-495 [facility] Work Phone: FEATURES REPORTER Antibody <0.2 AI 0.0-0.9 [facility] Work Phone: Platelets bldon 12-19-2021 Platelets (Bld) [#/Vol] 275 10*3/uL 150-450 [facility] Work Phone: Serum DNA double strand anti body assay (units/volume)on 12-19-2021 DNA double strand Ab Qn (S) [IU]/mL 0-9 [facility] Work Phone: Comment on above: Negative <5 Equivoca l 5 - 9 Positive >9 Serum Saskia-1 antibody assay (u nits/volume)on 12-19-2021 Saskia-1 extractable nuclear Ab Qn (S) <0.2 AI 0.0-0.9 [facility] Work Phone: Serum Scl-70 extractable nuc lear antibody assay (units/volume)on 12-19-2021 SCL-70 extractable nuclear Ab Qn (S) <0.2 AI 0.0-0.9 [facility] Work Phone: Serum Nelson extractable nucl ear antibody detectionon 12-19-2021 Nelson extractable nuclear Ab Ql (S) <0.2 AI 0.0-0.9 [facility] Work Phone: Serum classic neutrophil cyt oplasmic antibody assay (units/volume)on 12-19-2021 Neutrophil cytoplasmic Ab.classic Qn (S) <1:20 titer Neg:<1:20 [facility] Work Phone: Serum mitochondria antibody detectionon 12-19-2021 Mitochondria Ab Ql (S) <20.0 Units 0.0-20.0 [facility] Work Phone: Comment on above: Negative 0.0 - 20.0 Equivocal 20.1 - 24.9 Positive >24.9Mitochondrial (M2) Antibodies are found in 90-96% ofpatients with primary biliary cirrhosis.Performed at: [employer] [address] [id number] Director: Sharad Arreaga PhD, Phone: [phone] Serum or plasma C reactive p rotein measurement (mass/volume)on 12-19-2021 CRP [Mass/Vol] mg/L 0.0-3.0 [facility] Work Phone: Comment on above: C-Reactive Protein ( CRP) provides useful information for thediagnosis, therapy and monitoring of inflammatory processesand associated diseases. For the evaluation of Relative Riskfor Cardiovascular Disease, a High Sensitivity CRP (HSCRP)should be ordered. Serum or plasma IgA measurem ent (mass/volume)on 12-19-2021 IgA [Mass/Vol] 315 mg/dL 64-422 [facility] Work Phone: Serum or plasma IgG measurem ent (mass/volume)on 12-19-2021 IgG [Mass/Vol] 679 mg/dL [phone] [facility] Work Phone: Serum or plasma IgM measurem ent (mass/volume)on 12-19-2021 IgM [Mass/Vol] 66 mg/dL 26-217 [facility] Work Phone: Comment on above: Performed at: [employer] [id number] [place] [address] [id number] Director: Sharad Arreaga PhD, Phone: [phone] at: [facility] [address] [id number] Director: Jon Cordova MD, Phone: [phone] Serum or plasma actin IgG an tibody assay (units/volume)on 12-19-2021 Actin IgG Qn 12 Units 0-19 [facility] Work Phone: Comment on above: Negative 0 - 19 Weak positive 20 - 30 Moderate to strong positive >30 Actin Antibodies are found in 52-85% of patients with autoimmune hepatitis or chronic active hepatitis and in 22% of patients with primary biliary cirrhosis. Serum or plasma albumin lavon urement (mass/volume)on 12-19-2021 Albumin [Mass/Vol] 4.0 g/dL 3.2-5.0 [facility] Work Phone: Serum or plasma albumin/glob ulin mass ratioon 12-19-2021 Albumin/Globulin [Mass ratio] 1.1 {ratio} 0.9-2.4 [facility] Work Phone: Serum or plasma angiotensin converting enzyme measurement (enzymatic activity/volume)on 12-19-2021 Angiotensin converting enzyme [Catalytic activity/Vol] 35 U/L 14-82 [facility] Work Phone: Serum or plasma calcium lavon urement (mass/volume)on 12-19-2021 Calcium [Mass/Vol] 9.3 mg/dL 8.5-10.1 [facility] Work Phone: Serum or plasma creatinine m easurement (mass/volume)on 12-19-2021 Creatinine [Mass/Vol] 0.73 mg/dL 0.55-1.02 [facility] Work Phone: Comment on above: The validity of the calculated GFR & GFRAA in patients over 70 years has not been determined. Clinical correlation is essential. Serum or plasma urea nitroge n measurement (mass/volume)on 12-19-2021 Urea nitrogen [Mass/Vol] 16 mg/dL 7-18 [facility] Work Phone: Serum perinuclear neutrophil cytoplasmic antibody titer by immunofluorescenceon 12-19-2021 Neutrophil cytoplasmic Ab.perinuclear IF (S) [Titer] <1:20 titer Neg:<1:20 [facility] Work Phone: Comment on above: The presence of posi tive fluorescence exhibiting P-ANCA orC- ANCA patterns alone is not specific for the diagnosis ofWegener's Granulomatosis (WG) or microscopic polyangiitis.Decisions about treatment should not be based solely onANCA IFA results. The [employer] Consensusrecommends follow up testing of positive sera with both WA-3 and MPO-ANCA enzyme immunoassays. As many as 5% serumsamples are positive only by EIA. Ref. AM J Clin [id number];111:507-513. Thin prep Papanicolaou smear with manual screeningon 12-19-2021 Thin prep Papanicolaou smear with manual screening 19 U/L 15-37 [facility] Work Phone: Thin prep Papanicolaou smear with manual screening 2 5-15 [facility] Work Phone: Thin prep Papanicolaou smear with manual screening 212 U/L 84-246 [facility] Work Phone: Thin prep Papanicolaou smear with manual screening 184 ug/dL 80-158 [facility] Work Phone: Comment on above: Detection Limit = 5 XR SPINE LUMBAR W/OBLIQUES 4 VIEWSon 10-04-2021 XR SPINE LUMBAR W/OBLIQUES 4 VIEWS ORIGINAL EXAMINATION: 6 XRAY VIEWS OF THE LUMBAR SPINE 10/03/2021 12:22 pm COMPARISON: None. HISTORY: ORDERING SYSTEM PROVIDED HISTORY: Reason for Exam: lumbar back pain FINDINGS: Mild osteopenia is noted. Vertebral body height and alignment is normal. Disc spaces are preserved. There is facet degenerative change especially inferiorly. No other posterior element abnormality. Sacrum and sacroiliac joints are unremarkable. IMPRESSION: Inferior facet degenerative changes. No acute finding. Interpreted by: Efra López MD Preliminary Report By: Efra López MD Electronically signed By Efra López MD Dictated Date: 10/04/2021 8:36:56 AM Prelim Date: 10/04/2021 8:37:30 AM Sign Date: 10/04/2021 8:37:30 AM Ordering Provider: LILLY VICENTE [facility] ([place]) Absolute lymphocyte counton 09-17-2021 Lymphocytes Auto (Unsp spec) [#/Vol] 1.64 10*3/uL 0.83-4.51 [facility] Work Phone: Basophil percentageon 2021 Basophils/100 WBC (Bld) 1.2 % 0-1 [facility] Work Phone: Chloride [Moles/Vol] 105 mmol/L 98-107 [facility] Work Phone: Eosinophils/100 WBC (Bld) 1.5 % 0-5 [facility] Work Phone: Glucose [Mass/Vol] 104 mg/dL 74-106 [facility] Work Phone: Comment on above: Fasting Glucose resu lt from 100 to 125 mg/dL suggests IMPAIRED HOMEOSTASIS per A.D.A. criteria.Please note revised GLUCOSE reference range effective 2017. Neutrophils (Bld) [#/Vol] 4.5 10*3/uL 2.0-7.7 [facility] Work Phone: Neutrophils/100 WBC (Bld) 65.8 % 47-70 [facility] Work Phone: Potassium [Moles/Vol] 4.4 mmol/L 3.5-5.1 [facility] Work Phone: Sodium [Moles/Vol] 140 mmol/L 136-145 [facility] Work Phone: WBC (Bld) [#/Vol] 6.8 10*3/uL 4.4-11.0 [facility] Work Phone: Blood erythrocytes count (nu mber/volume)on 09-17-2021 RBC (Bld) [#/Vol] 4.66 10*6/uL 4.2-5.4 [facility] Work Phone: Blood hemoglobin measurement (mass/volume)on 09-17-2021 Hemoglobin (Bld) [Mass/Vol] 13.9 g/dL 12.0-15.0 [facility] Work Phone: [phone] Blood lymphocytes/100 leukoc yteson 09-17-2021 Lymphocytes/100 WBC (Bld) 24.1 % 19-41 [facility] Work Phone: Blood monocytes/100 leukocyt eson 09-17-2021 Monocytes/100 WBC (Bld) 7.0 % 0-10 [facility] Work Phone: Blood platelet mean volumeon 09-17-2021 Platelet mean volume (Bld) [Entitic vol] 10.2 fL 6.2-12.0 [facility] Work Phone: Determination of erythrocyte mean corpuscular volume (MCV)on 09-17-2021 MCV (RBC) [Entitic vol] 89.9 fL 81-99 [facility] Work Phone: Hematocrit Auto (Bld) [Volum e fraction]on 09-17-2021 Hematocrit (Bld) [Volume fraction] 41.9 % 37-47 [facility] Work Phone: Laboratory - Chemistry and C hemistry - challengeon 09-17-2021 CO2 [Moles/Vol] 27.0 mmol/L 21.0-32.0 [facility] Work Phone: Urea nitrogen/Creatinine [Mass ratio] 24.6 mg/mg 10-20 [facility] Work Phone: Laboratory - Hematology and Cell countson 09-17-2021 Erythrocyte distribution width (RBC) [Entitic vol] 42.5 fL 35.1-43.9 [facility] Work Phone: Erythrocyte distribution width (RBC) [Ratio] 12.9 % 11.6-14.6 [facility] Work Phone: Immature granulocytes/100 WBC (Bld) 0.400 % 0.0-0.9 [facility] Work Phone: Comment on above: IG% - Immature Granu locytes (promyelocytes, myelocytes and metamyelocytes) > 1% indicates that a LEFT SHIFT is Present. MCH (RBC) [Entitic mass] 29.8 pg 27.0-32.0 [facility] Work Phone: Nucleated RBC/100 WBC (Bld) [Ratio] 0 % 0-5 [facility] Work Phone: MCHC Auto (RBC) [Mass/Vol]on 09-17-2021 MCHC (RBC) [Mass/Vol] 33.2 g/dL 32-36 [facility]: No Panel Informationon 09-17 Troponin I High Sensitivity 6 pg/mL 3.0-54.0 [facility] Work Phone: Comment on above: Please Note: New Jolene t Units and Gender Specific Reference Ranges. For more information see Policy Stat Procedure [place] High Sensitivity Troponin (TNIH) and attachments. Estimated Creatinine Clearance Calc 48.30 ml/min [facility] Work Phone: Estimated GFR (MDRD) Amer 95 mL/min >60 [facility] Work Phone: Comment on above: GFR Calc Estimated GFR (MDRD) Non-Af Amer 78 mL/min >60 [facility] Work Phone: Comment on above: Non- GFR Calc Platelets bldon 09-17-2021 Platelets (Bld) [#/Vol] 251 10*3/uL 150-450 [facility] Work Phone: Serum or plasma calcium lavon urement (mass/volume)on 09-17-2021 Calcium [Mass/Vol] 9.2 mg/dL 8.5-10.1 [facility] Work Phone: Serum or plasma creatinine m easurement (mass/volume)on 09-17-2021 Creatinine [Mass/Vol] 0.77 mg/dL 0.55-1.02 [facility] Work Phone: Comment on above: The validity of the calculated GFR & GFRAA in patients over 70 years has not been determined. Clinical correlation is essential. Serum or plasma urea nitroge n measurement (mass/volume)on 09-17-2021 Urea nitrogen [Mass/Vol] 19 mg/dL 7-18 [facility] Work Phone: Thin prep Papanicolaou smear with manual screeningon 09-17-2021 Thin prep Papanicolaou smear with manual screening 8 5-15 [facility] Work Phone: CBCon 04-04-2021 Hematocrit (Bld) [Volume fraction] 39.7 % Normal 37.0-47.0 [facility] ([place]) Comment on above: Result Comment: Refe rence range changed due to change in patient's sex at 12:07:48. Normal Low changed from 42.0 to 37.0. Normal High changed from 52.0 to 47.0. Result flag changed from L to within range. Performed By: #### C MP, GFR #### [place] [address] #### CBC, ADIFF, ANEU #### [place] [address] Hgb 13.6 G/dL Normal 12.0-16.0 [facility] ([place] Comment on above: Result Comment: Refe rence range changed due to change in patient's sex at 12:07:48. Normal Low changed from 14.0 to 12.0. Normal High changed from 18.0 to 16.0. Result flag changed from L to within range. Performed By: #### C MP, GFR #### [place] [address] #### CBC, ADIFF, ANEU #### [place] [address] MCHC 34.1 G/dL Normal 33.0-37.0 [facility] ([place] Comment on above: Result Comment: Refe rence range changed due to change in patient's sex at 12:07:48. Normal Low changed from 31.8 to 33.0. Normal High changed from 35.4 to 37.0. Result flag not changed. Performed By: #### C MP, GFR #### [place] [address] #### CBC, ADIFF, ANEU #### [place] [address] RBC 4.36 10 6/mcL Normal 4.20-5.40 [facility] ([place] Comment on above: Result Comment: Refe rence range changed due to change in patient's sex at 12:07:48. Normal Low changed from 4.04 to 4.20. Normal High changed from 6.13 to 5.40. Result flag not changed. Performed By: #### C MP, GFR #### [place] [address] #### CBC, YANCY, ANEU #### [address] [address] CMPon 04-04-2021 ALT [Catalytic activity/Vol] 21 U/L Normal 14-59 [facility] ([place] Comment on above: Result Comment: Refe rence range changed due to change in patient's sex at 12:07:48. Normal Low changed from 16 to 14. Normal High changed from 63 to 59. Result flag not changed. Performed By: #### C MP, GFR #### [place] [address] #### CBC, YANCY, ANEU #### [address] [address] Creatinine [Mass/Vol] 0.71 mg/dL Normal 0.55-1.02 [facility] ([place]) Comment on above: Result Comment: Refe rence range changed due to change in patient's sex at 12:07:48. Normal Low changed from 0.70 to 0.55. Normal High changed from 1.30 to 1.02. Result flag not changed. Performed By: #### C MP, GFR #### [place] [address] #### CBC, YANCY, ANEU #### [address] [address] .Auto Diffon 12-30-2020 Basophil, Absolute 0.10 10 3/mcL Normal 0.00-0.19 [facility] ([place]) Comment on above: Performed By: #### C MP, GFR #### [place] [address] #### CBC, ADIFF, ANEU #### [address] [address] Basophils/100 WBC (Bld) 2.0 % Normal 0.0-2.5 [facility] ([place] Comment on above: Performed By: #### C MP, GFR #### [address] [address] #### CBC, ADIFF, ANEU #### [address] [address] Eosinophil, Absolute 0.20 10 3/mcL Normal 0.00-0.40 A [facility] ([place]) Comment on above: Performed By: #### C MP, GFR #### [place] [address] #### CBC, ADIFF, ANEU #### [address] [address] Eosinophils/100 WBC (Bld) 3.8 % Normal 0.0-7.0 [facility] ([place] Comment on above: Performed By: #### C MP, GFR #### [place] [address] #### CBC, ADIFF, ANEU #### [address] [address] Lymphocyte, Absolute 1.60 10 3/mcL Normal 0.77-3.85 A [facility] ([place] Comment on above: Performed By: #### C MP, GFR #### [place] [address] #### CBC, ADIFF, ANEU #### [address] [address] Lymphocytes/100 WBC (Bld) 27.3 % Normal 10.0-50.0 [facility] ([place] Comment on above: Performed By: #### C MP, GFR #### [place] [address] #### CBC, ADIFF, ANEU #### [address] [address] Monocyte, Absolute 0.60 10 3/mcL Normal 0.15-1.00 [facility] ([place]) Comment on above: Performed By: #### C MP, GFR #### [place] [address] #### CBC, ADIFF, ANEU #### [address] [address] Monocytes/100 WBC (Bld) 10.3 % Normal 1.7-13.0 [facility] ([place] Comment on above: Performed By: #### C MP, GFR #### [address] [address] #### CBC, ADIFF, ANEU #### [address] [address] Neutrophils/100 WBC (Bld) 56.6 % Normal 37.0-80.0 [facility] ([place]) Comment on above: Performed By: #### C MP, GFR #### [address] [address] #### CBC, ADIFF, ANEU #### [address] [address] .GFRon 12-30-2020 GFR Non- 110 ml/min/1.73sqm Normal [facility] ([place]) Comment on above: Result Comment: GFR Population mean for , Non- Americans Ages 20-29 = 116 mL/min/1.73 sq.m. Ages 30-39 = 107 mL/min/1.73 sq.m. Ages 40-49 = 99 mL/min/1.73 sq.m. Ages 50-59 = 93 mL/min/1.73 sq.m. Ages 60-69 = 85 mL/min/1.73 sq.m. Ages 70+ = 75 mL/min/1.73 sq.m. Chronic Kidney Disease: Less than 60 mL/min/1.73 square meters End Stage Renal Disease: Less than 15 mL/min/1.73 square meters Performed By: #### C MP, GFR #### [address] [address] #### CBC, ADIFF, ANEU #### [address] [address] GFR 133 ml/min/1.73sqm Normal [facility] ([place] Comment on above: Result Comment: GFR Population mean for , Non- Americans Ages 20-29 = 116 mL/min/1.73 sq.m. Ages 30-39 = 107 mL/min/1.73 sq.m. Ages 40-49 = 99 mL/min/1.73 sq.m. Ages 50-59 = 93 mL/min/1.73 sq.m. Ages 60-69 = 85 mL/min/1.73 sq.m. Ages 70+ = 75 mL/min/1.73 sq.m. Chronic Kidney Disease: Less than 60 mL/min/1.73 square meters End Stage Renal Disease: Less than 15 mL/min/1.73 square meters Performed By: #### C MP, GFR #### [place] [address] #### CBC, ADIFF, ANEU #### [address] [address] .NEUABSon 12-30-2020 Neutrophil, Absolute 3.40 10 3/mcL Normal 2.85-6.16 A [facility] ([place] Comment on above: Performed By: #### C MP, GFR #### [place] [address] #### CBC, ADIFF, ANEU #### [address] [address] CBCon 12-30-2020 Erythrocyte distribution width (RBC) [Ratio] 13.3 % Normal 11.5-14.5 [facility] ([place] Comment on above: Performed By: #### C MP, GFR #### [place] [address] #### CBC, ADIFF, ANEU #### [address] [address] MCH (RBC) [Entitic mass] 31.1 pg Normal 27.0-31.2 [facility] ([place] Comment on above: Performed By: #### C MP, GFR #### [place] [address] #### CBC, ADIFF, ANEU #### [address] [address] MCV (RBC) [Entitic vol] 91.1 fL Normal 80.0-94.0 [facility] [place] Comment on above: Performed By: #### C MP, GFR #### [place] [address] #### CBC, ADIFF, ANEU #### [address] [address] Platelet 250 10 3/mcL Normal 130-400 [facility] [place] Comment on above: Performed By: #### C MP, GFR #### [place] [address] #### CBC, ADIFF, ANEU #### [address] [address] Platelet mean volume (Bld) [Entitic vol] 8.9 fL Normal 7.4-10.4 [facility] ([place] Comment on above: Performed By: #### C MP, GFR #### [place] [address] #### CBC, ADIFF, ANEU #### [address] [address] WBC 6.00 10 3/mcL Normal 4.60-10.80 [facility] ([place] Comment on above: Performed By: #### C MP, GFR #### [place] [address] #### CBC, ADIFF, ANEU #### [address] [address] CMPon 12-30-2020 Albumin Level 3.9 G/dL Normal 3.4-4.8 [facility] ([place] Comment on above: Performed By: #### C MP, GFR #### [place] [address] #### CBC, ADIFF, ANEU #### [address] [address] Albumin/Globulin [Mass ratio] 1.3 {ratio} Normal 1.1-2.5 [facility] ([place] Comment on above: Performed By: #### C MP, GFR #### [address] [address] #### CBC, ADIFF, ANEU #### [address] [address] ALP [Catalytic activity/Vol] 121 U/L Normal 40-135 [facility] ([place] Comment on above: Performed By: #### C MP, GFR #### [place] [address] #### CBC, ADIFF, ANEU #### [address] [address] AST [Catalytic activity/Vol] 18 U/L Normal 10-40 [facility] ([place] Comment on above: Performed By: #### C MP, GFR #### [place] [address] #### CBC, ADIFF, ANEU #### [address] [address] Bili Total 0.6 mg/dL Normal 0.2-1.0 [facility] ([place] Comment on above: Result Comment: Use of this assay is not recommended for patients undergoing treatment with eltrombopag due to the potential for falsely elevated results. Performed By: #### C MP, GFR #### [place] [address] #### CBC, ADIFF, ANEU #### [address] [address] BUN/Creatinine Ratio 30 ratio High 7-27 Critical access [facility] ([place] Comment on above: Performed By: #### C MP, GFR #### [place] [address] #### CBC, ADIFF, ANEU #### [address] [address] Calcium [Mass/Vol] 8.7 mg/dL Normal 8.4-10.2 [facility] ([place] Comment on above: Performed By: #### C MP, GFR #### [place] [address] #### CBC, ADIFF, ANEU #### [address] [address] Chloride [Moles/Vol] 105 mmol/L Normal 98-107 [facility] ([place] Comment on above: Performed By: #### C MP, GFR #### [address] [address] #### CBC, ADIFF, ANEU #### [address] [address] CO2 [Moles/Vol] 30 mmol/L Normal 23-31 [facility] ([place]) Comment on above: Performed By: #### C MP, GFR #### [address] [address] #### CBC, ADIFF, ANEU #### [address] [address] Electrolyte Balance 7.0 mEq/L Normal [facility] ([place]) Comment on above: Performed By: #### C MP, GFR #### [place] [address] #### CBC, ADIFF, ANEU #### [address] [address] Globulin 2.9 G/dL Normal [facility] ([place]) Comment on above: Performed By: #### C MP, GFR #### [place] [address] #### CBC, ADIFF, ANEU #### [address] [address] Glucose [Mass/Vol] 108 mg/dL Normal 83-110 [facility] ([place] Comment on above: Performed By: #### C MP, GFR #### [place] [id number] #### CBC, ADIFF, ANEU #### [address] [address] Potassium [Moles/Vol] 4.5 mmol/L Normal 3.5-5.1 [facility] ([place]) Comment on above: Performed By: #### C MP, GFR #### [address] [address] #### CBC, ADIFF, ANEU #### [address] [address] Sodium [Moles/Vol] 142 mmol/L Normal 136-145 [facility] ([place] Comment on above: Performed By: #### C MP, GFR #### [address] [address] #### CBC, ADIFF, ANEU #### [place] [id number] [place], [place] [address] Total Protein 6.8 G/dL Normal 6.4-8.2 [facility] ([place]) Comment on above: Performed By: #### C MP, GFR #### [place] [id number] #### CBC, ADIFF, ANEU #### [address] [address] Urea nitrogen [Mass/Vol] 21 mg/dL High 7-18 [facility] ([place]) Comment on above: Performed By: #### C MP, GFR #### [place] [address] #### CBC, ADIFF, ANEU #### [address] [address] CNOVon 06-28-2019 CNOV Office Visit ([facility] ) -- ZEE RAMIREZ ([id number]) 1950 F Date Time Provider Department 06/28/19 10:45 AM KIM LAMAR [facility] During your visit today, we recorded the following information about you: Temperature Pulse Respiration Blood pressure 98.3 degrees 64/minute 16/minute 106/64 Weight 67.6 kg Kim Lamar APRN.CNP 06/28/2019 11:09 AM Signed [facility] [address] [place], [place] [address] Emergency Department Diagnosis: Assessment SINUSITIS: You have sinusitis, an infection of the sinus cavities around the nose. This infection usually follows a respiratory illness; it can also be related to allergies, changes in atmospheric pressure (flying, diving), or anything that blocks nasal drainage. Symptoms include: headache, facial pain, a thick nasal discharge, congestion, and cough. The treatment includes antibiotic therapy, increasing oral fluids, and pain medication if needed. Nose spray decongestants (Afrin, Micheal-Synephrine) and oral decongestants may be needed to reduce congestion and drainage. Rarely the sinus must be irrigated to remove the infected material. Sinusitis can lead to serious complications by spreading to other areas such as the eye or brain. Please call your doctor or return here right away if you have any of the following more serious symptoms: - Unusual swelling around the eye or trouble seeing. - Increasing pain, severe headache, or toothache. - Nausea, vomiting, or unusual drowsiness. Kim Lamar, DEAN.[employer] 06/28/2019 11:15 AM Signed Subjective HPI Pt presents with c/o 3.5 weeks hx runny nose/nasal congestion. Had been taking coricidin with no improvement. 4 days ago sx became worse. Developed frontal ORTIZ, maxillary facial pressure and pressure behind bilateral eyes, post nasal drip. Denies fever, chills, myalgia, cough. No known exposure to sick contacts. Review of Systems Constitutional: Negative for chills and fever. HENT: Positive for congestion and sinus pain. Negative for ear discharge and ear pain. Sore throat: Post nasal drip. Respiratory: Negative for cough. Objective Physical Exam Constitutional: She is oriented to person, place, and time and well-developed, well-nourished, and in no distress. No distress. HENT: Head: Normocephalic. Right Ear: Hearing, tympanic membrane, external ear and ear canal normal. Left Ear: Hearing, tympanic membrane, external ear and ear canal normal. Nose: Rhinorrhea present. Right sinus exhibits maxillary sinus tenderness and frontal sinus tenderness. Left sinus exhibits maxillary sinus tenderness and frontal sinus tenderness. Mouth/Throat: Uvula is midline, oropharynx is clear and moist and mucous membranes are normal. No oropharyngeal exudate, posterior oropharyngeal edema, posterior oropharyngeal erythema (clear drainage) or tonsillar abscesses. Eyes: Pupils are equal, round, and reactive to light. Conjunctivae are normal. Right eye exhibits no discharge. Left eye exhibits no discharge. Neck: Neck supple. Cardiovascular: Normal rate, regular rhythm and normal heart sounds. Exam reveals no gallop and no friction rub. No murmur heard. Pulmonary/Chest: Effort normal and breath sounds normal. No respiratory distress. She has no wheezes. She has no rales. Lymphadenopathy: She has no cervical adenopathy. Neurological: She is alert and oriented to person, place, and time. Skin: Skin is warm and dry. She is not diaphoretic. BP 106/64 Pulse 64 Temp 36.8 ?C (98.3 ?F) (Tympanic) Resp 16 Wt 67.6 kg (149 lb) SpO2 97% BMI 24.05 kg/m? .Patient presents with: Sinus Problem: sinus pressure, drainage, cough, gland and ear pain x 3.5 weeks PAST MEDICAL HISTORY Diagnosis Date - Acid reflux - Anxiety - Fibromyalgia - Gastritis - H/O: hysterectomy 1991 - History of cholecystectomy 2010 niharika wrap PAST SURGICAL HISTORY Procedure Laterality Date - CATARACT EXTRACTION HX 05/27 - EGD 09/19/2015 with pH probe - EGD W/O BRSH SPECIMEN W/BX 01-09-13 w/ PH probe - REMV GALLBLADDER W CHOLANGIOGRAM with Jose wrap - VAGINAL HYSTERECTOMY 1991 ALLERGIES Boniva [Ibandronate]; Codeine MEDICATIONS alendronate (FOSAMAX) 70 mg tablet DULoxetine (CYMBALTA) 30 mg capsule Take 30 mg by mouth three times daily. LORazepam (ATIVAN) 0.5 mg tab multivit-min/ferrous fumarate (MULTI VITAMIN ORAL) Take by mouth. CALCIUM ACETATE ORAL Take by mouth. ergocalciferol, vitamin D2, (VITAMIN D2 ORAL) Take by mouth. loperamide HCl (IMODIUM ORAL) Take by mouth. acetaminophen (TYLENOL 8 HOUR ORAL) Take by mouth. buPROPion XL (WELLBUTRIN XL) 150 mg 24 hr tablet diphenoxylate-atropine (LOMOTIL) 2.5-0.025 mg per tablet escitalopram oxalate (LEXAPRO) 20 mg tablet sucralfate (CARAFATE) 1 gram tablet aspirin 325 mg tablet Take 325 mg by mouth once daily. Dexlansoprazole (DEXILANT) 60 mg CpDM Take 60 mg by mouth once daily. Ascorbic Acid (VITAMIN C) 1,000 mg tablet Take 1,000 mg by mouth once daily. calcium combo no.2-vitamin D3 600 mg calcium- 500 unit TbER Take by mouth. Pyridoxine HCl (VITAMIN B-6) 250 mg tablet Take 250 mg by mouth once daily. busPIRone 15 mg tablet Take 15 mg by mouth three times daily. 1-1/2 tablets two times daily amoxicillin-clavulanic acid (AUGMENTIN) 875-125 mg per tablet Take 1 tablet by mouth twice daily for 10 days. bifidobacteri bifid.and longum (FLORAJEN BIFIDOBLEND) 460 mg (9-1 bill.cell) cap Take 1 capsule by mouth once daily. guaiFENesin (MUCINEX) 600 mg 12 hr tablet Take 2 tablets by mouth twice daily. benzonatate (TESSALON PERLE) 100 mg capsule Take 2 capsules by mouth three times daily as needed. ranitidine (ZANTAC) 150 mg tablet zolpidem (AMBIEN) 10 mg tab Hale-3 Fatty Acids-Vitamin E (FISH OIL) 1,000 mg cap Take 1 capsule by mouth once daily. Calcium Carbonate-Vitamin D3 (VITAMIN D-3) 180-5,000 mg-unit Tab Take 5,000 Units by mouth once daily. zolpidem (AMBIEN) 5 mg tablet Take 5 mg by mouth at bedtime as needed. meloxicam (MOBIC) 15 mg tablet Take 15 mg by mouth once daily. citalopram (CELEXA) 40 mg tablet Take 40 mg by mouth once daily. Aspirin 81 mg Tab Take 81 mg by mouth once daily. FAMILY HISTORY Problem Relation Age of Onset - Diabetes Maternal Grandmother - Ischemic Heart Disease Maternal Grandfather - Stroke Mother - Hypertension Mother - Diabetes Mother - Glaucoma Maternal Grandfather - Glaucoma Maternal Grandmother - Diabetes Maternal Grandfather Social History Tobacco Use - Smoking status: Former Smoker Packs/day: 1.00 Years: 25.00 Pack years: 25.00 Types: Cigarettes Last attempt to quit: 01/01/2012 Years since quittin.4 - Smokeless tobacco: Never Used Substance Use Topics - Alcohol use: Yes Comment: on occassion - Drug use: No ASSESSMENT/PLAN: 1. Acute non-recurrent pansinusitis - ICD9: 461.8, ICD10: J01.40 - Supportive care with plenty of fluids, rest, and analgesia prn. - Follow up in 3-5 days if symptoms persist or worsen. - AMOXICILLIN 875 MG-POTASSIUM CLAVULANATE 125 MG TABLET - BIFIDOBACTERIUM BIFIDUM AND LONGUM 460 MG (9-1 BILLION CELL) CAPSULE - GUAIFENESIN ER 600 MG TABLET, EXTENDED RELEASE 12 HR The patient is instructed to return or seek emergency treatment if symptoms become worse or with any acute change in condition. The patient verbalizes understanding and is in agreement with plan of care. Kim Lamar CNP Referring Provider: SELF [200] Allergies As of Date: 06/28/2019 Noted Allergy Reaction BONIVA (IBANDRONATE) 12/27/2012 8 - GI Upset CODEINE 12/27/2012 4 - Hives 12 - Shortness of Breath Date Reviewed: 06/28/2019 Reviewed by: Vannessa Arrington Ma - Fully Assessed Reason for Visit: Sinus Problem [99] Cmt: sinus pressure, drainage, cough, gland and ear pain x 3.5 weeks Primary Visit Diagnosis:Acute non-recurrent pansinusitis [J01.40] Order(s):amoxicillin-clavu lanic acid (AUGMENTIN) 875-125 mg per tabletTake 1 tablet by mouth twice daily for 10 days.Disp: 20 tabletRfl: 0 bifidobacteri bifid.and longum (FLORAJEN BIFIDOBLEND) 460 mg (9-1 bill.cell) capTake 1 capsule by mouth once daily.Disp: 30 capsuleRfl: 1 guaiFENesin (MUCINEX) 600 mg 12 hr tabletTake 2 tablets by mouth twice daily.Disp: 30 tabletRfl: 0 Prescriptions as of 06/28/2019 Sig: ALENDRONATE 70 MG TABLET DULOXETINE 30 MG CAPSULE,YAZMIN* Take 30 mg by mouth three morro* LORAZEPAM 0.5 MG TABLET MULTI VITAMIN ORAL Take by mouth. CALCIUM ACETATE ORAL Take by mouth. VITAMIN D2 ORAL Take by mouth. IMODIUM ORAL Take by mouth. TYLENOL 8 HOUR ORAL Take by mouth. BUPROPION XL 150 MG TAB DIPHENOXYLATE-ATROPINE 2.5 MG* ESCITALOPRAM 20 MG TABLET SUCRALFATE 1 GRAM TABLET ASPIRIN 325 MG TABLET Take 325 mg by mouth once jamilah* DEXLANSOPRAZOLE 60 MG CAPSULE* Take 60 mg by mouth once bette* ASCORBIC ACID (VITAMIN C) 1,0* Take 1,000 mg by mouth once d* CALCIUM CARB,CIT ER 600 MG CA* Take by mouth. PYRIDOXINE (VITAMIN B6) 250 M* Take 250 mg by mouth once jamilah* BUSPIRONE 15 MG TABLET Take 15 mg by mouth three morro* AMOXICILLIN 875 MG-POTASSIUM * Take 1 tablet by mouth twice * BIFIDOBACTERIUM BIFIDUM AND L* Take 1 capsule by mouth once * GUAIFENESIN ER 600 MG TABLET,* Take 2 tablets by mouth twice* BENZONATATE 100 MG CAPSULE Take 2 capsules by mouth thre* Patient not taking: Reported on 06/28/2019 RANITIDINE 150 MG TABLET ZOLPIDEM 10 MG TABLET OMEGA-3 FATTY ACIDS-VITAMIN E* Take 1 capsule by mouth once * CALCIUM CARBONATE-VITAMIN D3 * Take 5,000 Units by mouth onc* ZOLPIDEM 5 MG TABLET Take 5 mg by mouth at bedtime* MELOXICAM 15 MG TABLET Take 15 mg by mouth once bette* CITALOPRAM 40 MG TABLET Take 40 mg by mouth once bette* ASPIRIN 81 MG TABLET Take 81 mg by mouth once bette* Problem List As Of Date: 06/28/2019 (None) Other instructions from your clinician: [facility] [address]. [place] [address] Emergency Department Diagnosis: Assessment SINUSITIS: You have sinusitis, an infection of the sinus cavities around the nose. This infection usually follows a respiratory illness; it can also be related to allergies, changes in atmospheric pressure (flying, diving), or anything that blocks nasal drainage. Symptoms include: headache, facial pain, a thick nasal discharge, congestion, and cough. The treatment includes antibiotic therapy, increasing oral fluids, and pain medication if needed. Nose spray decongestants (Afrin, Micheal-Synephrine) and oral decongestants may be needed to reduce congestion and drainage. Rarely the sinus must be irrigated to remove the infected material. Sinusitis can lead to serious complications by spreading to other areas such as the eye or brain. Please call your doctor or return here right away if you have any of the following more serious symptoms: - Unusual swelling around the eye or trouble seeing. - Increasing pain, severe headache, or toothache. - Nausea, vomiting, or unusual drowsiness. Prescriptions ordered this encounter Disp Refills Start End AMOXICILLIN 875 MG-POTASSIUM CLAVULA* 20 t* 0 06/28/2019 07/08/2019 Class: Print RX Route: ORAL Sig: Take 1 tablet by mouth twice daily for 10 days. BIFIDOBACTERIUM BIFIDUM AND LONGUM 4* 30 c* 1 06/28/2019 Class: Print RX Route: ORAL Sig: Take 1 capsule by mouth once daily. GUAIFENESIN ER 600 MG TABLET, EXTEND* 30 t* 0 06/28/2019 Class: Print RX Route: ORAL Sig: Take 2 tablets by mouth twice daily. Encounter Status:Closed by KIM LAMAR CNP on 06/28/19 [facility] PROGRESSon 06-28-2019 PROGRESS HNO ID: [id number] Author: Kim Lamar Service: ? Author Type: Nurse Practitioner Type: Progress Notes Filed: 06/28/2019 11:15 AM Note Text: Subjective HPI Pt presents with c/o 3.5 weeks hx runny nose/nasal congestion. Had been taking coricidin with no improvement. 4 days ago sx became worse. Developed frontal ORTIZ, maxillary facial pressure and pressure behind bilateral eyes, post nasal drip. Denies fever, chills, myalgia, cough. No known exposure to sick contacts. Review of Systems Constitutional: Negative for chills and fever. HENT: Positive for congestion and sinus pain. Negative for ear discharge and ear pain. Sore throat: Post nasal drip. Respiratory: Negative for cough. Objective Physical Exam Constitutional: She is oriented to person, place, and time and well-developed, well-nourished, and in no distress. No distress. HENT: Head: Normocephalic. Right Ear: Hearing, tympanic membrane, external ear and ear canal normal. Left Ear: Hearing, tympanic membrane, external ear and ear canal normal. Nose: Rhinorrhea present. Right sinus exhibits maxillary sinus tenderness and frontal sinus tenderness. Left sinus exhibits maxillary sinus tenderness and frontal sinus tenderness. Mouth/Throat: Uvula is midline, oropharynx is clear and moist and mucous membranes are normal. No oropharyngeal exudate, posterior oropharyngeal edema, posterior oropharyngeal erythema (clear drainage) or tonsillar abscesses. Eyes: Pupils are equal, round, and reactive to light. Conjunctivae are normal. Right eye exhibits no discharge. Left eye exhibits no discharge. Neck: Neck supple. Cardiovascular: Normal rate, regular rhythm and normal heart sounds. Exam reveals no gallop and no friction rub. No murmur heard. Pulmonary/Chest: Effort normal and breath sounds normal. No respiratory distress. She has no wheezes. She has no rales. Lymphadenopathy: She has no cervical adenopathy. Neurological: She is alert and oriented to person, place, and time. Skin: Skin is warm and dry. She is not diaphoretic. BP 106/64 Pulse 64 Temp 36.8 ?C (98.3 ?F) (Tympanic) Resp 16 Wt 67.6 kg (149 lb) SpO2 97% BMI 24.05 kg/m? .Patient presents with: Sinus Problem: sinus pressure, drainage, cough, gland and ear pain x 3.5 weeks PAST MEDICAL HISTORY Diagnosis Date - Acid reflux - Anxiety - Fibromyalgia - Gastritis - H/O: hysterectomy 1991 - History of cholecystectomy 2009 niharika wrap PAST SURGICAL HISTORY Procedure Laterality Date - CATARACT EXTRACTION HX 05/27 - EGD 09/19/2015 with pH probe - EGD W/O BRSH SPECIMEN W/BX 01-09-13 w/ PH probe - REMV GALLBLADDER W CHOLANGIOGRAM with Jose wrap - VAGINAL HYSTERECTOMY 1991 ALLERGIES Boniva [Ibandronate]; Codeine MEDICATIONS alendronate (FOSAMAX) 70 mg tablet DULoxetine (CYMBALTA) 30 mg capsule Take 30 mg by mouth three times daily. LORazepam (ATIVAN) 0.5 mg tab multivit-min/ferrous fumarate (MULTI VITAMIN ORAL) Take by mouth. CALCIUM ACETATE ORAL Take by mouth. ergocalciferol, vitamin D2, (VITAMIN D2 ORAL) Take by mouth. loperamide HCl (IMODIUM ORAL) Take by mouth. acetaminophen (TYLENOL 8 HOUR ORAL) Take by mouth. buPROPion XL (WELLBUTRIN XL) 150 mg 24 hr tablet diphenoxylate-atropine (LOMOTIL) 2.5-0.025 mg per tablet escitalopram oxalate (LEXAPRO) 20 mg tablet sucralfate (CARAFATE) 1 gram tablet aspirin 325 mg tablet Take 325 mg by mouth once daily. Dexlansoprazole (DEXILANT) 60 mg CpDM Take 60 mg by mouth once daily. Ascorbic Acid (VITAMIN C) 1,000 mg tablet Take 1,000 mg by mouth once daily. calcium combo no.2-vitamin D3 600 mg calcium- 500 unit TbER Take by mouth. Pyridoxine HCl (VITAMIN B-6) 250 mg tablet Take 250 mg by mouth once daily. busPIRone 15 mg tablet Take 15 mg by mouth three times daily. 1-1/2 tablets two times daily amoxicillin-clavulanic acid (AUGMENTIN) 875-125 mg per tablet Take 1 tablet by mouth twice daily for 10 days. bifidobacteri bifid.and longum (FLORAJEN BIFIDOBLEND) 460 mg (9-1 bill.cell) cap Take 1 capsule by mouth once daily. guaiFENesin (MUCINEX) 600 mg 12 hr tablet Take 2 tablets by mouth twice daily. benzonatate (TESSALON PERLE) 100 mg capsule Take 2 capsules by mouth three times daily as needed. ranitidine (ZANTAC) 150 mg tablet zolpidem (AMBIEN) 10 mg tab Hale-3 Fatty Acids-Vitamin E (FISH OIL) 1,000 mg cap Take 1 capsule by mouth once daily. Calcium Carbonate-Vitamin D3 (VITAMIN D-3) 180-5,000 mg-unit Tab Take 5,000 Units by mouth once daily. zolpidem (AMBIEN) 5 mg tablet Take 5 mg by mouth at bedtime as needed. meloxicam (MOBIC) 15 mg tablet Take 15 mg by mouth once daily. citalopram (CELEXA) 40 mg tablet Take 40 mg by mouth once daily. Aspirin 81 mg Tab Take 81 mg by mouth once daily. FAMILY HISTORY Problem Relation Age of Onset - Diabetes Maternal Grandmother - Ischemic Heart Disease Maternal Grandfather - Stroke Mother - Hypertension Mother - Diabetes Mother - Glaucoma Maternal Grandfather - Glaucoma Maternal Grandmother - Diabetes Maternal Grandfather Social History Tobacco Use - Smoking status: Former Smoker Packs/day: 1.00 Years: 25.00 Pack years: 25.00 Types: Cigarettes Last attempt to quit: 01/01/2012 Years since quittin.4 - Smokeless tobacco: Never Used Substance Use Topics - Alcohol use: Yes Comment: on occassion - Drug use: No ASSESSMENT/PLAN: 1. Acute non-recurrent pansinusitis - ICD9: 461.8, ICD10: J01.40 - Supportive care with plenty of fluids, rest, and analgesia prn. - Follow up in 3-5 days if symptoms persist or worsen. - AMOXICILLIN 875 MG-POTASSIUM CLAVULANATE 125 MG TABLET - BIFIDOBACTERIUM BIFIDUM AND LONGUM 460 MG (9-1 BILLION CELL) CAPSULE - GUAIFENESIN ER 600 MG TABLET, EXTENDED RELEASE 12 HR The patient is instructed to return or seek emergency treatment if symptoms become worse or with any acute change in condition. The patient verbalizes understanding and is in agreement with plan of care. Kim Lamar CNP [facility] CNOVon 02-14-2019 CNOV Office Visit ([facility] ) -- ZEE RAMIREZ Turner ([id number]) 1950 F Date Time Provider Department 02/14/19 11:00 AM NAKUL AVINA ([facility]) [place] During your visit today, we recorded the following information about you: Temperature Pulse Respiration Blood pressure 98.5 degrees 73/minute 16/minute 106/62 Weight 68.9 kg Nakul Avina APRN.CNP 02/14/2019 11:45 AM Signed Subjective HPI HPI Zee Tompkins James is a 68 year old female who presents today for CC of cough congestion. This started 4 days ago. Has tried otc medication. Symptoms are worsened by nothig. Risk factors patient is an everyday smoker. Burning with urination for 12 hours, hx of uti. .Patient presents with: burning and frequency with urination and sinus: x 1 day-sinus issue off and on x 1 week-fever yesterday and a little diarrhea today also PAST MEDICAL HISTORY Diagnosis Date - Acid reflux - Anxiety - Fibromyalgia - Gastritis - H/O: hysterectomy 1991 - History of cholecystectomy 2010 niharika wrap PAST SURGICAL HISTORY Procedure Laterality Date - CATARACT EXTRACTION HX 05/27 - EGD 09/19/2015 with pH probe - EGD W/O BRSH SPECIMEN W/BX 01-09-13 w/ PH probe - REMV GALLBLADDER W CHOLANGIOGRAM with Jose wrap - VAGINAL HYSTERECTOMY 1991 ALLERGIES Boniva [Ibandronate]; Codeine MEDICATIONS alendronate (FOSAMAX) 70 mg tablet multivit-min/ferrous fumarate (MULTI VITAMIN ORAL) Take by mouth. CALCIUM ACETATE ORAL Take by mouth. ergocalciferol, vitamin D2, (VITAMIN D2 ORAL) Take by mouth. loperamide HCl (IMODIUM ORAL) Take by mouth. acetaminophen (TYLENOL 8 HOUR ORAL) Take by mouth. DULoxetine (CYMBALTA) 30 mg capsule Take 30 mg by mouth three times daily. LORazepam (ATIVAN) 0.5 mg tab buPROPion XL (WELLBUTRIN XL) 150 mg 24 hr tablet diphenoxylate-atropine (LOMOTIL) 2.5-0.025 mg per tablet escitalopram oxalate (LEXAPRO) 20 mg tablet ranitidine (ZANTAC) 150 mg tablet sucralfate (CARAFATE) 1 gram tablet zolpidem (AMBIEN) 10 mg tab aspirin 325 mg tablet Take 325 mg by mouth once daily. Dexlansoprazole (DEXILANT) 60 mg CpDM Take 60 mg by mouth once daily. Ascorbic Acid (VITAMIN C) 1,000 mg tablet Take 1,000 mg by mouth once daily. Hale-3 Fatty Acids-Vitamin E (FISH OIL) 1,000 mg cap Take 1 capsule by mouth once daily. Calcium Carbonate-Vitamin D3 (VITAMIN D-3) 180-5,000 mg-unit Tab Take 5,000 Units by mouth once daily. calcium combo no.2-vitamin D3 600 mg calcium- 500 unit TbER Take by mouth. Pyridoxine HCl (VITAMIN B-6) 250 mg tablet Take 250 mg by mouth once daily. zolpidem (AMBIEN) 5 mg tablet Take 5 mg by mouth at bedtime as needed. meloxicam (MOBIC) 15 mg tablet Take 15 mg by mouth once daily. citalopram (CELEXA) 40 mg tablet Take 40 mg by mouth once daily. busPIRone 15 mg tablet Take 15 mg by mouth three times daily. 1-1/2 tablets two times daily Aspirin 81 mg Tab Take 81 mg by mouth once daily. FAMILY HISTORY Problem Relation Age of Onset - Diabetes Maternal Grandmother - Ischemic Heart Disease Maternal Grandfather - Stroke Mother - Hypertension Mother - Diabetes Mother - Glaucoma Maternal Grandfather - Glaucoma Maternal Grandmother - Diabetes Maternal Grandfather Social History Tobacco Use - Smoking status: Former Smoker Packs/day: 1.00 Years: 25.00 Pack years: 25.00 Types: Cigarettes Last attempt to quit: 01/01/2012 Years since quittin.1 - Smokeless tobacco: Never Used Substance Use Topics - Alcohol use: Yes Comment: on occassion - Drug use: No Review of Systems Constitutional: Positive for fever (yesterday). Negative for chills and weight loss. HENT: Positive for congestion and sore throat. Negative for ear pain and nosebleeds. Respiratory: Positive for cough. Negative for shortness of breath and wheezing. Cardiovascular: Negative for chest pain and palpitations. Gastrointestinal: Positive for diarrhea (mild today). Negative for abdominal pain, blood in stool, constipation, heartburn, melena, nausea and vomiting. Genitourinary: Positive for dysuria and frequency. Negative for flank pain, hematuria and urgency. Musculoskeletal: Negative for neck pain. Skin: Negative for itching and rash. Objective Blood pressure 106/62, pulse 73, temperature 36.9 ?C (98.5 ?F), temperature source Tympanic, resp. rate 16, weight 68.9 kg (152 lb). Physical Exam Constitutional: She is oriented to person, place, and time and well-developed, well-nourished, and in no distress. Non-toxic appearance. She does not have a sickly appearance. No distress. HENT: Head: Normocephalic and atraumatic. Right Ear: Hearing, tympanic membrane, external ear and ear canal normal. Left Ear: Hearing, tympanic membrane, external ear and ear canal normal. Nose: Nose normal. Mouth/Throat: Uvula is midline, oropharynx is clear and moist and mucous membranes are normal. Eyes: Pupils are equal, round, and reactive to light. Conjunctivae and lids are normal. Right eye exhibits no discharge. Left eye exhibits no discharge. No scleral icterus. Neck: Trachea normal and normal range of motion. Neck supple. Cardiovascular: Normal rate, regular rhythm and normal heart sounds. Pulmonary/Chest: Effort normal and breath sounds normal. Abdominal: Soft. Normal appearance and bowel sounds are normal. There is no hepatosplenomegaly. There is tenderness in the suprapubic area. There is no CVA tenderness. Lymphadenopathy: She has no cervical adenopathy. Neurological: She is alert and oriented to person, place, and time. Skin: Skin is warm and dry. No rash noted. She is not diaphoretic. ASSESSMENT/PLAN: 1. Urinary frequency - ICD9: 788.41, ICD10: R35.0 (primary diagnosis) acute - UA positive for sumaya esterase, hematuria and proteinuria - Send urine for culture - Begin treatment with cephalexin for 10 days - Patient education for prevention given - UA DIP, URINE (POC) - URINE CULTURE - CEPHALEXIN 500 MG CAPSULE 2. URI with cough and congestion - ICD9: 465.9, ICD10: J06.9 - Discussed viral etiology and rationale for treatment. - Symptomatic treatment with prn analgesia - Supportive care with fluids and rest - Follow up in 3-5 days if symptoms persist or sooner if worsening of symptoms - BENZONATATE 100 MG CAPSULE Prescription instructions reviewed with patient as applicable. Patient advised if symptoms do not improve or if symptoms worsen sooner, to contact the office for further evaluation by their primary care physician. Potential red flag symptoms discussed with the patient. Reviewed appropriate action plan to take if red flag symptoms occur. Patient agreeable to treatment plan. Nakul Avina APRN.GEOFF Avina APRN.GEOFF 02/14/2019 11:35 AM Signed URINARY TRACT INFECTION GENERAL INFORMATION: A urinary tract infection (UTI) is an infection of the bladder or kidneys. A bladder infection, called cystitis, is the more common type. If the infection travels up to the kidneys, it is called pyelonephritis. This can be more serious. UTIs are a common problem in women. Having sexual relations can leave a woman more susceptible to developing a UTI, but it is not sexually transmitted like gonorrhea. Some women have a problem with recurrent UTIs. INSTRUCTIONS: 1. Your doctor prescribed an antibiotic to treat the UTI. Take exactly as directed. Be sure to take all the medication prescribed, even if your symptoms disappear. If you stop treatment early, the infection may not be fully treated and the symptoms could come back again. 2. Get plenty of rest. You may take acetaminophen for fever and aches. 3. Drink 6 to 8 glasses of fluids, especially water, every day. This helps wash out germs from your urinary tract. Cranberry juice or other sources of vitamin C are also good for you. 4. Urinate often, as soon as you feel the urge. Empty your bladder completely. Urinate before and after you have sex. 5. Always wipe from front to back after going to the bathroom. This pushes germs away from your bladder, rather than towards it. 6. Showers are better than baths, and you should wash the genital area daily. Avoid bubble bath or bath oils if you do take a bath. 7. Wear underwear and pantyhose with a cotton crotch. CONTACT YOUR DOCTOR: 1. You have a temperature over 102F (38.8C) after 48 hours on medication. 2. You notice blood in your urine. 3. Your symptoms don't improve in 2 days. 4. You develop nausea, vomiting, diarrhea, or a rash. 5. You develop new or unexplained symptoms. These may be related to the medication you are taking. 6. Your symptoms return after you finish treatment. RETURN TO THE EMERGENCY DEPARTMENT IF: You develop vomiting and can't keep your medication or fluids down. RESPIRATORY INFECTION GENERAL INFORMATION: An upper respiratory tract infection, or cold, is a viral infection of the airway passages. It can be caused by any one of almost 200 different viruses. Common symptoms include a runny or stuffy nose, sneezing, watery eyes, sore throat, cough, and slight fever. Colds are contagious, especially during the first 3 or 4 days and cannot be cured by antibiotics. They are spread by coughs, sneezes, and direct contact, especially [id number]. A respiratory tract infection usually clears up in a few days, but some people may be sick for a week or two. INSTRUCTIONS: 1. Be careful not to blow your nose too hard because this may cause a nosebleed. 2. Use a cool-mist humidifier (vaporizer) to increase air moisture. This will make it easier for you to breathe. Do not use hot steam. 3. Rest as much as possible and get plenty of sleep. 4. Wash your hands often, especially after you blow your nose. Cover your mouth and nose with a tissue when you sneeze or cough. 5. Drink plenty of clear fluids (8 glasses a day) such as water, fruit juice, tea, clear soups, and carbonated beverages. CONTACT YOUR DOCTOR IF : 1. Your fever lasts more than 3 days. 2. You have a sore throat that gets worse or you see white or yellow spots in your throat. 3. Your cough gets worse or lasts more than 10 days. 4. You develop a rash anywhere on your skin. 5. You have an earache or a headache. 6. You have thick greenish or yellowish discharge from your nose. RETURN IMMEDIATELY IF: 1. You cough up thick yellow, green, olson, or bloody sputum. 2. You have difficulty breathing, pain in your chest, or your skin or nails look olson or blue. 3. You have shaking chills or a temperature over 102 F (39 C). Referring Provider: SELF [200] Allergies As of Date: 02/14/2019 Noted Allergy Reaction BONIVA (IBANDRONATE) 12/27/2012 8 - GI Upset CODEINE 12/27/2012 4 - Hives 12 - Shortness of Breath Date Reviewed: 02/14/2019 Reviewed by: Martina Melendez LPN - Fully Assessed Reason for Visit: burning and frequency with urination and sinus [Other] Cmt: x 1 day-sinus issue off and on x 1 week-fever yesterday and a little diarrhea today also Reason For Visit History Recorded Primary Visit Diagnosis:Urinary frequency [R35.0] Other Visit Diagnosis:URI with cough and congestion [J06.9] Order(s):UA DIP, URINE (POC) [[id number]] Order #: [id number]. #:[id number] -LAB URINE CULTURE [SQURCUL] Order #: [id number] cephALEXin (KEFLEX) 500 mg capsuleTake 1 capsule by mouth twice daily for 10 days.Disp: 20 capsuleRfl: 0 benzonatate (TESSALON PERLE) 100 mg capsuleTake 2 capsules by mouth three times daily as needed.Disp: 30 capsuleRfl: 0 Prescriptions as of 02/14/2019 Sig: ALENDRONATE 70 MG TABLET MULTI VITAMIN ORAL Take by mouth. CALCIUM ACETATE ORAL Take by mouth. VITAMIN D2 ORAL Take by mouth. IMODIUM ORAL Take by mouth. TYLENOL 8 HOUR ORAL Take by mouth. DULOXETINE 30 MG CAPSULE,YAZMIN* Take 30 mg by mouth three morro* LORAZEPAM 0.5 MG TABLET CEPHALEXIN 500 MG CAPSULE Take 1 capsule by mouth twice* BENZONATATE 100 MG CAPSULE Take 2 capsules by mouth thre* BUPROPION XL 150 MG TAB DIPHENOXYLATE-ATROPINE 2.5 MG* ESCITALOPRAM 20 MG TABLET RANITIDINE 150 MG TABLET SUCRALFATE 1 GRAM TABLET ZOLPIDEM 10 MG TABLET ASPIRIN 325 MG TABLET Take 325 mg by mouth once jamilah* DEXLANSOPRAZOLE 60 MG CAPSULE* Take 60 mg by mouth once bette* ASCORBIC ACID (VITAMIN C) 1,0* Take 1,000 mg by mouth once d* OMEGA-3 FATTY ACIDS-VITAMIN E* Take 1 capsule by mouth once * CALCIUM CARBONATE-VITAMIN D3 * Take 5,000 Units by mouth onc* CALCIUM CARB,CIT ER 600 MG CA* Take by mouth. PYRIDOXINE (VITAMIN B6) 250 M* Take 250 mg by mouth once jamilah* ZOLPIDEM 5 MG TABLET Take 5 mg by mouth at bedtime* MELOXICAM 15 MG TABLET Take 15 mg by mouth once bette* CITALOPRAM 40 MG TABLET Take 40 mg by mouth once bette* BUSPIRONE 15 MG TABLET Take 15 mg by mouth three morro* ASPIRIN 81 MG TABLET Take 81 mg by mouth once bette* Problem List As Of Date: 02/14/2019 (None) Other instructions from your clinician: URINARY TRACT INFECTION GENERAL INFORMATION: A urinary tract infection (UTI) is an infection of the bladder or kidneys. A bladder infection, called cystitis, is the more common type. If the infection travels up to the kidneys, it is called pyelonephritis. This can be more serious. UTIs are a common problem in women. Having sexual relations can leave a woman more susceptible to developing a UTI, but it is not sexually transmitted like gonorrhea. Some women have a problem with recurrent UTIs. INSTRUCTIONS: 1. Your doctor prescribed an antibiotic to treat the UTI. Take exactly as directed. Be sure to take all the medication prescribed, even if your symptoms disappear. If you stop treatment early, the infection may not be fully treated and the symptoms could come back again. 2. Get plenty of rest. You may take acetaminophen for fever and aches. 3. Drink 6 to 8 glasses of fluids, especially water, every day. This helps wash out germs from your urinary tract. Cranberry juice or other sources of vitamin C are also good for you. 4. Urinate often, as soon as you feel the urge. Empty your bladder completely. Urinate before and after you have sex. 5. Always wipe from front to back after going to the bathroom. This pushes germs away from your bladder, rather than towards it. 6. Showers are better than baths, and you should wash the genital area daily. Avoid bubble bath or bath oils if you do take a bath. 7. Wear underwear and pantyhose with a cotton crotch. CONTACT YOUR DOCTOR: 1. You have a temperature over 102F (38.8C) after 48 hours on medication. 2. You notice blood in your urine. 3. Your symptoms don't improve in 2 days. 4. You develop nausea, vomiting, diarrhea, or a rash. 5. You develop new or unexplained symptoms. These may be related to the medication you are taking. 6. Your symptoms return after you finish treatment. RETURN TO THE EMERGENCY DEPARTMENT IF: You develop vomiting and can't keep your medication or fluids down. RESPIRATORY INFECTION GENERAL INFORMATION: An upper respiratory tract infection, or cold, is a viral infection of the airway passages. It can be caused by any one of almost 200 different viruses. Common symptoms include a runny or stuffy nose, sneezing, watery eyes, sore throat, cough, and slight fever. Colds are contagious, especially during the first 3 or 4 days and cannot be cured by antibiotics. They are spread by coughs, sneezes, and direct contact, especially [id number]. A respiratory tract infection usually clears up in a few days, but some people may be sick for a week or two. INSTRUCTIONS: 1. Be careful not to blow your nose too hard because this may cause a nosebleed. 2. Use a cool-mist humidifier (vaporizer) to increase air moisture. This will make it easier for you to breathe. Do not use hot steam. 3. Rest as much as possible and get plenty of sleep. 4. Wash your hands often, especially after you blow your nose. Cover your mouth and nose with a tissue when you sneeze or cough. 5. Drink plenty of clear fluids (8 glasses a day) such as water, fruit juice, tea, clear soups, and carbonated beverages. CONTACT YOUR DOCTOR IF : 1. Your fever lasts more than 3 days. 2. You have a sore throat that gets worse or you see white or yellow spots in your throat. 3. Your cough gets worse or lasts more than 10 days. 4. You develop a rash anywhere on your skin. 5. You have an earache or a headache. 6. You have thick greenish or yellowish discharge from your nose. RETURN IMMEDIATELY IF: 1. You cough up thick yellow, green, olson, or bloody sputum. 2. You have difficulty breathing, pain in your chest, or your skin or nails look olson or blue. 3. You have shaking chills or a temperature over 102 F (39 C). Prescriptions ordered this encounter Disp Refills Start End CEPHALEXIN 500 MG CAPSULE 20 c* 0 02/14/2019 02/24/2019 Route: ORAL Sig: Take 1 capsule by mouth twice daily for 10 days. BENZONATATE 100 MG CAPSULE 30 c* 0 02/14/2019 Route: ORAL Sig: Take 2 capsules by mouth three times daily as needed. Encounter Status:Closed by NAKUL AVINA CNP on 02/14/19 [facility] PROGRESSon 02-14-2019 PROGRESS HNO ID: [id number] Author: Nakul Valdes) Service: ? Author Type: Nurse Practitioner Type: Progress Notes Filed: 02/14/2019 11:45 AM Note Text: Subjective HPI HPI Zee Ramirez is a 68 year old female who presents today for CC of cough congestion. This started 4 days ago. Has tried otc medication. Symptoms are worsened by nothig. Risk factors patient is an everyday smoker. Burning with urination for 12 hours, hx of uti. .Patient presents with: burning and frequency with urination and sinus: x 1 day-sinus issue off and on x 1 week-fever yesterday and a little diarrhea today also PAST MEDICAL HISTORY Diagnosis Date - Acid reflux - Anxiety - Fibromyalgia - Gastritis - H/O: hysterectomy 1991 - History of cholecystectomy 2009 niharika wrap PAST SURGICAL HISTORY Procedure Laterality Date - CATARACT EXTRACTION HX 05/27 - EGD 09/19/2015 with pH probe - EGD W/O BRSH SPECIMEN W/BX 01-09-13 w/ PH probe - REMV GALLBLADDER W CHOLANGIOGRAM with Jose wrap - VAGINAL HYSTERECTOMY 1991 ALLERGIES Boniva [Ibandronate]; Codeine MEDICATIONS alendronate (FOSAMAX) 70 mg tablet multivit-min/ferrous fumarate (MULTI VITAMIN ORAL) Take by mouth. CALCIUM ACETATE ORAL Take by mouth. ergocalciferol, vitamin D2, (VITAMIN D2 ORAL) Take by mouth. loperamide HCl (IMODIUM ORAL) Take by mouth. acetaminophen (TYLENOL 8 HOUR ORAL) Take by mouth. DULoxetine (CYMBALTA) 30 mg capsule Take 30 mg by mouth three times daily. LORazepam (ATIVAN) 0.5 mg tab buPROPion XL (WELLBUTRIN XL) 150 mg 24 hr tablet diphenoxylate-atropine (LOMOTIL) 2.5-0.025 mg per tablet escitalopram oxalate (LEXAPRO) 20 mg tablet ranitidine (ZANTAC) 150 mg tablet sucralfate (CARAFATE) 1 gram tablet zolpidem (AMBIEN) 10 mg tab aspirin 325 mg tablet Take 325 mg by mouth once daily. Dexlansoprazole (DEXILANT) 60 mg CpDM Take 60 mg by mouth once daily. Ascorbic Acid (VITAMIN C) 1,000 mg tablet Take 1,000 mg by mouth once daily. Hale-3 Fatty Acids-Vitamin E (FISH OIL) 1,000 mg cap Take 1 capsule by mouth once daily. Calcium Carbonate-Vitamin D3 (VITAMIN D-3) 180-5,000 mg-unit Tab Take 5,000 Units by mouth once daily. calcium combo no.2-vitamin D3 600 mg calcium- 500 unit TbER Take by mouth. Pyridoxine HCl (VITAMIN B-6) 250 mg tablet Take 250 mg by mouth once daily. zolpidem (AMBIEN) 5 mg tablet Take 5 mg by mouth at bedtime as needed. meloxicam (MOBIC) 15 mg tablet Take 15 mg by mouth once daily. citalopram (CELEXA) 40 mg tablet Take 40 mg by mouth once daily. busPIRone 15 mg tablet Take 15 mg by mouth three times daily. 1-1/2 tablets two times daily Aspirin 81 mg Tab Take 81 mg by mouth once daily. FAMILY HISTORY Problem Relation Age of Onset - Diabetes Maternal Grandmother - Ischemic Heart Disease Maternal Grandfather - Stroke Mother - Hypertension Mother - Diabetes Mother - Glaucoma Maternal Grandfather - Glaucoma Maternal Grandmother - Diabetes Maternal Grandfather Social History Tobacco Use - Smoking status: Former Smoker Packs/day: 1.00 Years: 25.00 Pack years: 25.00 Types: Cigarettes Last attempt to quit: 01/01/2012 Years since quittin.1 - Smokeless tobacco: Never Used Substance Use Topics - Alcohol use: Yes Comment: on occassion - Drug use: No Review of Systems Constitutional: Positive for fever (yesterday). Negative for chills and weight loss. HENT: Positive for congestion and sore throat. Negative for ear pain and nosebleeds. Respiratory: Positive for cough. Negative for shortness of breath and wheezing. Cardiovascular: Negative for chest pain and palpitations. Gastrointestinal: Positive for diarrhea (mild today). Negative for abdominal pain, blood in stool, constipation, heartburn, melena, nausea and vomiting. Genitourinary: Positive for dysuria and frequency. Negative for flank pain, hematuria and urgency. Musculoskeletal: Negative for neck pain. Skin: Negative for itching and rash. Objective Blood pressure 106/62, pulse 73, temperature 36.9 ?C (98.5 ?F), temperature source Tympanic, resp. rate 16, weight 68.9 kg (152 lb). Physical Exam Constitutional: She is oriented to person, place, and time and well-developed, well-nourished, and in no distress. Non-toxic appearance. She does not have a sickly appearance. No distress. HENT: Head: Normocephalic and atraumatic. Right Ear: Hearing, tympanic membrane, external ear and ear canal normal. Left Ear: Hearing, tympanic membrane, external ear and ear canal normal. Nose: Nose normal. Mouth/Throat: Uvula is midline, oropharynx is clear and moist and mucous membranes are normal. Eyes: Pupils are equal, round, and reactive to light. Conjunctivae and lids are normal. Right eye exhibits no discharge. Left eye exhibits no discharge. No scleral icterus. Neck: Trachea normal and normal range of motion. Neck supple. Cardiovascular: Normal rate, regular rhythm and normal heart sounds. Pulmonary/Chest: Effort normal and breath sounds normal. Abdominal: Soft. Normal appearance and bowel sounds are normal. There is no hepatosplenomegaly. There is tenderness in the suprapubic area. There is no CVA tenderness. Lymphadenopathy: She has no cervical adenopathy. Neurological: She is alert and oriented to person, place, and time. Skin: Skin is warm and dry. No rash noted. She is not diaphoretic. ASSESSMENT/PLAN: 1. Urinary frequency - ICD9: 788.41, ICD10: R35.0 (primary diagnosis) acute - UA positive for sumaya esterase, hematuria and proteinuria - Send urine for culture - Begin treatment with cephalexin for 10 days - Patient education for prevention given - UA DIP, URINE (POC) - URINE CULTURE - CEPHALEXIN 500 MG CAPSULE 2. URI with cough and congestion - ICD9: 465.9, ICD10: J06.9 - Discussed viral etiology and rationale for treatment. - Symptomatic treatment with prn analgesia - Supportive care with fluids and rest - Follow up in 3-5 days if symptoms persist or sooner if worsening of symptoms - BENZONATATE 100 MG CAPSULE Prescription instructions reviewed with patient as applicable. Patient advised if symptoms do not improve or if symptoms worsen sooner, to contact the office for further evaluation by their primary care physician. Potential red flag symptoms discussed with the patient. Reviewed appropriate action plan to take if red flag symptoms occur. Patient agreeable to treatment plan. Nakul Avina APRN.[employer] Normal [facility] Urine Cultureon 02-14-2019 Bacteria identified Cx Nom (U) Sp. Request/Comment: - Specimen received in preservative Culture Result - >=100,000 CFU/ml Escherichia coli --> ABNORMAL ALERT ORGANISM: Escherichia coli METHOD: Minimum inhibitory concentration(Vitek) Antibiotic Interp TIM Status Ampicillin RESISTANT >=32 F Gentamicin SUSCEPTIBLE <=1 F Trimeth sulfameth SUSCEPTIBLE <=20 F Cefazolin SUSCEPTIBLE <=4 F CLSI breakpoints for therapy of uncomplicated UTI's due to E.coli, K.pneumoniae, and P.mirabilis were applied and may be used to predict the activity of oral agents(cefaclor, cefdinir, cefpodoxime, cefprozil, cefuroxime, cephalexin, loracarbef). Ciprofloxacin SUSCEPTIBLE <=0.25 F Nitrofurantoin SUSCEPTIBLE <=16 F Cefepime SUSCEPTIBLE <=1 F Piperacillin/Tazobac SUSCEPTIBLE <=4 F Ampicillin Sulbact RESISTANT >=32 F Ceftriaxone SUSCEPTIBLE <=1 F Meropenem SUSCEPTIBLE <=0.25 F Ertapenem SUSCEPTIBLE <=0.5 F Critically abnormal [facility] Comment on above: Performed By: #### U RCUL #### [facility] [address] [place], [place] [address] Vital Signs Date Time Vital Sign Value Performing Clinician Marcus paz 05-12-2025 08:53-0400 Body temperature 97.8 [degF] Dr. Katalina Velazquez MD Work Phone: [facility] 05-12-2025 08:53-0400 Diastolic blood pressure 74 mm[Hg] Dr. Katalina Velazquez MD Work Phone: [facility] 05-12-2025 08:53-0400 Heart rate 72 /min Dr. Katalina Velazquez MD Work Phone: [facility] 05-12-2025 08:53-0400 Respiratory rate 14 /min Dr. Katalina Velazquez MD Work Phone: [facility] 05-12-2025 08:53-0400 SaO2% (BldA) [Mass fraction] 100 % Dr. Katalina Velazquez MD Work Phone: [facility] 05-12-2025 08:53-0400 Systolic blood pressure 139 mm[Hg] Dr. Katalina Velazquez MD Work Phone: [facility] 05-12-2025 08:36-0400 Body height 165.[address] Katalina Velazquez MD Work Phone: [facility] 05-12-2025 08:36-0400 Body mass index (BMI) [Ratio] 24.7 kg/m2 Dr. Katalina Velazquez MD Work Phone: [facility] 05-12-2025 08:36-0400 Body weight 67.[address] Katalina Velazquez MD Work Phone: [facility] 04-03-2025 12:04-0400 Body height 165.[address] Katalina Velazquez MD Work Phone: [facility] 04-03-2025 12:04-0400 Body mass index (BMI) [Ratio] 24.5 kg/m2 Dr. Katalina Velazquez MD Work Phone: [facility] 04-03-2025 12:04-0400 Body temperature 99.1 [degF] Dr. Katalina Velazquez MD Work Phone: [facility] 04-03-2025 12:04-0400 Body weight 66.[address] Katalina Velazquez MD Work Phone: [facility] 04-03-2025 12:04-0400 Diastolic blood pressure 79 mm[Hg] Dr. Katalina Velazquez MD Work Phone: [facility] 04-03-2025 12:04-0400 Heart rate 62 /min Dr. Katalina Velazquez MD Work Phone: [facility] 04-03-2025 12:04-0400 Respiratory rate 16 /min Dr. Katalina Velazquez MD Work Phone: [facility] 04-03-2025 12:04-0400 SaO2% (BldA) [Mass fraction] 97 % Dr. Katalina Velazquez MD Work Phone: [facility] 04-03-2025 12:04-0400 Systolic blood pressure 130 mm[Hg] Dr. Katalina Velazquez MD Work Phone: [facility] 03-28-2025 15:06-0400 Body temperature 98.3 [degF] Dr. Katalina Velazquez MD Work Phone: [facility] 03-28-2025 15:06-0400 Diastolic blood pressure 60 mm[Hg] Dr. Katalina Velazquez MD Work Phone: [facility] 03-28-2025 15:06-0400 Heart rate 72 /min Dr. Katalina Velazquez MD Work Phone: [facility] 03-28-2025 15:06-0400 Respiratory rate 16 /min Dr. Katalina Velazquez MD Work Phone: [facility] 03-28-2025 15:06-0400 SaO2% (BldA) [Mass fraction] 97 % Dr. Katalina Velazquez MD Work Phone: [facility] 03-28-2025 15:06-0400 Systolic blood pressure 110 mm[Hg] Dr. Katalina Velazquez MD Work Phone: [facility] 01-29-2025 10:15-0400 Body height 165.[address] Katalina Velazquez MD Work Phone: [facility] 01-29-2025 10:15-0400 Body mass index (BMI) [Ratio] 24.1 kg/m2 Dr. Katalina Velazquez MD Work Phone: [facility] 01-29-2025 10:15-0400 Body temperature 97.8 [degF] Dr. Katalina Velazquez MD Work Phone: [facility] 01-29-2025 10:15-0400 Body weight 65.[address] Katalina Velazquez MD Work Phone: [facility] 01-29-2025 10:15-0400 Diastolic blood pressure 62 mm[Hg] Dr. Katalina Velazquez MD Work Phone: [facility] 01-29-2025 10:15-0400 Heart rate 73 /min Dr. Katalina Velazquez MD Work Phone: [facility] 01-29-2025 10:15-0400 Respiratory rate 18 /min Dr. Katalina Velazquez MD Work Phone: [facility] 01-29-2025 10:15-0400 SaO2% (BldA) [Mass fraction] 97 % Dr. Katalina Velazquez MD Work Phone: [facility] 01-29-2025 10:15-0400 Systolic blood pressure 114 mm[Hg] Dr. Katalina Velazquez MD Work Phone: [facility] 01-05-2025 15:59-0400 Body temperature 98 [degF] Dr. Katalina Velazquez MD Work Phone: [facility] 01-05-2025 15:59-0400 Diastolic blood pressure 70 mm[Hg] Dr. Katalina Velazquez MD Work Phone: [facility] 01-05-2025 15:59-0400 Heart rate 66 /min Dr. Katalina Velazquez MD Work Phone: [facility] 01-05-2025 15:59-0400 Respiratory rate 16 /min Dr. Katalina Velazquez MD Work Phone: [facility] [facility] 01-05-2025 15:59-0400 SaO2% (BldA) [Mass fraction] 98 % Dr. Katalina Velazquez MD Work Phone: [facility] 01-05-2025 15:59-0400 Systolic blood pressure 114 mm[Hg] Dr. Katalina Velazquez MD Work Phone: [facility] 01-05-2025 12:00-0400 Body height 165.[address] Katalina Velazquez MD Work Phone: [facility] 01-05-2025 12:00-0400 Body weight 67.[address] Katalina Velazquez MD Work Phone: [facility] 01-04-2025 17:58-0400 Body mass index (BMI) [Ratio] 24.7 kg/m2 Dr. Katalina Velazquez MD Work Phone: [facility] 12-08-2024 08:45-0400 Body temperature 98 [degF] Dr. Katalina Velazquez MD Work Phone: [facility] 12-08-2024 08:45-0400 Body weight 67.[address] Katalina Velazquez MD Work Phone: [facility] 12-08-2024 08:45-0400 Diastolic blood pressure 76 mm[Hg] Dr. Katalina Velazquez MD Work Phone: [facility] 12-08-2024 08:45-0400 Heart rate 65 /min Dr. Katalina Velazquez MD Work Phone: [facility] 12-08-2024 08:45-0400 Respiratory rate 14 /min Dr. Katalina Velazquez MD Work Phone: [facility] 12-08-2024 08:45-0400 SaO2% (BldA) [Mass fraction] 97 % Dr. Katalina Velazquez MD Work Phone: [facility] 12-08-2024 08:45-0400 Systolic blood pressure 127 mm[Hg] Dr. Katalina Velazquez MD Work Phone: [facility] 11-13-2024 10:16-0500 Body height 165.[address] Katalina Velazquez MD Work Phone: [facility] 11-13-2024 10:16-0500 Body mass index (BMI) [Ratio] 24.4 kg/m2 Dr. Katalina Velazquez MD Work Phone: [facility] 11-13-2024 10:16-0500 Body temperature 97.6 [degF] Dr. Katalina Velazquez MD Work Phone: [facility] 11-13-2024 10:16-0500 Body weight 66.[address] Katalina Velazquez MD Work Phone: [facility] 11-13-2024 10:16-0500 Diastolic blood pressure 70 mm[Hg] Dr. Katalina Velazquez MD Work Phone: [facility] 11-13-2024 10:16-0500 Heart rate 64 /min Dr. Katalina Velazquez MD Work Phone: [facility] 11-13-2024 10:16-0500 Respiratory rate 16 /min Dr. Katalina Velazquez MD Work Phone: [facility] 11-13-2024 10:16-0500 SaO2% (BldA) [Mass fraction] 99 % Dr. Katalina Velazquez MD Work Phone: [facility] 11-13-2024 10:16-0500 Systolic blood pressure 116 mm[Hg] Dr. Katalina Velazquez MD Work Phone: [facility] 09-19-2024 12:40-0500 Body mass index (BMI) [Ratio] 24 kg/m2 Dr. Katalina Velazquez MD Work Phone: [facility] 09-19-2024 12:40-0500 Body temperature 98.5 [degF] Dr. Katalina Velazquez MD Work Phone: [facility] 09-19-2024 12:40-0500 Body weight 65.[address] Katalina Velazquez MD Work Phone: [facility] 09-19-2024 12:40-0500 Diastolic blood pressure 86 mm[Hg] Dr. Katalina Velazquez MD Work Phone: [facility] 09-19-2024 12:40-0500 Heart rate 65 /min Dr. Katalina Velazquez MD Work Phone: [facility] 09-19-2024 12:40-0500 SaO2% (BldA) [Mass fraction] 99 % Dr. Katalina Velazquez MD Work Phone: [facility] 09-19-2024 12:40-0500 Systolic blood pressure 120 mm[Hg] Dr. Katalina Velazquez MD Work Phone: [facility] 08-14-2024 13:47-0500 Body mass index (BMI) [Ratio] 23.4 kg/m2 Dr. Katalina Velazquez MD Work Phone: [facility] 08-14-2024 13:47-0500 Body temperature 97.6 [degF] Dr. Katalina Velazquez MD Work Phone: [facility] 08-14-2024 13:47-0500 Body weight 63.[address] Katalina Velazquez MD Work Phone: [facility] 08-14-2024 13:47-0500 Diastolic blood pressure 80 mm[Hg] Dr. Katalina Velazquez MD Work Phone: [facility] 08-14-2024 13:47-0500 Heart rate 67 /min Dr. Katalina Velazquez MD Work Phone: [facility] 08-14-2024 13:47-0500 Respiratory rate 16 /min Dr. Katalina Velazquez MD Work Phone: [facility] 08-14-2024 13:47-0500 SaO2% (BldA) [Mass fraction] 97 % Dr. Katalina Velazquez MD Work Phone: [facility] 08-14-2024 13:47-0500 Systolic blood pressure 124 mm[Hg] Dr. Katalina Velazquez MD Work Phone: [facility] 01-21-2024 08:34-0400 Body height 165.[address] Katalina Velazquez Work Phone: [facility] 01-21-2024 08:34-0400 Body mass index (BMI) [Ratio] 22.1 kg/m2 Dr. Katalina Velazquez Work Phone: [facility] 01-21-2024 08:34-0400 Body temperature 96.8 [degF] Dr. Katalina Velazquez Work Phone: [facility] 01-21-2024 08:34-0400 Body weight 60.[address] Katalina Velazquez Work Phone: [facility] 01-21-2024 08:34-0400 Diastolic blood pressure 64 mm[Hg] Dr. Katalina Velazquez Work Phone: [facility] 01-21-2024 08:34-0400 Heart rate 55 /min Dr. Katalina Velazquez Work Phone: [facility] 01-21-2024 08:34-0400 Respiratory rate 16 /min Dr. Katalina Velazquez Work Phone: [facility] 01-21-2024 08:34-0400 SaO2% (BldA) [Mass fraction] 100 % Dr. Katalina Velazquez Work Phone: [facility] 01-21-2024 08:34-0400 Systolic blood pressure 127 mm[Hg] Dr. Katalina Velazquez Work Phone: [facility] 12-24-2023 08:45-0400 Body height 165.[address] Lilly Vicente Work Phone: [facility] 12-24-2023 08:45-0400 Body temperature 97.7 [degF] Dr. Lilly Vicente Work Phone: [facility] 12-24-2023 08:45-0400 Diastolic blood pressure 66 mm[Hg] Dr. Lilly Vicente Work Phone: [facility] 12-24-2023 08:45-0400 Heart rate 66 /min Dr. Lilly Vicente Work Phone: [facility] 12-24-2023 08:45-0400 Respiratory rate 16 /min Dr. Lilly Vicente Work Phone: [facility] 12-24-2023 08:45-0400 SaO2% (BldA) [Mass fraction] 97 % Dr. Lilly Vicente Work Phone: [facility] 12-24-2023 08:45-0400 Systolic blood pressure 130 mm[Hg] Dr. Lilly Vicente Work Phone: [facility] 12-16-2023 14:22-0400 Body height 165.[address] Lilly Vicente Work Phone: [facility] 12-16-2023 14:22-0400 Body mass index (BMI) [Ratio] 22.4 kg/m2 Dr. Lilly Vicente Work Phone: [facility] 12-16-2023 14:22-0400 Body temperature 97.6 [degF] Dr. Lilly Vicente Work Phone: [facility] 12-16-2023 14:22-0400 Body weight 61.[address] Lilly Vicente Work Phone: [facility] 12-16-2023 14:22-0400 Diastolic blood pressure 60 mm[Hg] Dr. Lilly Vicente Work Phone: [facility] 12-16-2023 14:22-0400 Heart rate 64 /min Dr. Lilly Vicente Work Phone: [facility] 12-16-2023 14:22-0400 Respiratory rate 16 /min Dr. Lilly Vicente Work Phone: [facility] 12-16-2023 14:22-0400 SaO2% (BldA) [Mass fraction] 97 % Dr. Lilly Vicente Work Phone: [facility] 12-16-2023 14:22-0400 Systolic blood pressure 118 mm[Hg] Dr. Lilly Vicente Work Phone: [facility] 11-29-2023 11:51-0400 Body temperature 97.8 [degF] Dr. Lilly Vicente Work Phone: [facility] 11-29-2023 11:51-0400 Diastolic blood pressure 66 mm[Hg] Dr. Lilly Vicente Work Phone: [facility] 11-29-2023 11:51-0400 Heart rate 65 /min Dr. Lilly Vicente Work Phone: [facility] 11-29-2023 11:51-0400 Respiratory rate 12 /min Dr. Lilly Vicente Work Phone: [facility] 11-29-2023 11:51-0400 SaO2% (BldA) [Mass fraction] 99 % Dr. Lilly Vicente Work Phone: [facility] 11-29-2023 11:51-0400 Systolic blood pressure 108 mm[Hg] Dr. Lilly Vicente Work Phone: [facility] 11-26-2023 12:35-0400 Body height 165.[address] Lilly Vicente Work Phone: [facility] 11-26-2023 12:35-0400 Body mass index (BMI) [Ratio] 21.6 kg/m2 Dr. Lilly Vicente Work Phone: [facility] 11-26-2023 12:35-0400 Body temperature 96.6 [degF] Dr. Lilly Vicente Work Phone: [facility] 11-26-2023 12:35-0400 Body weight 58.[address] Lilly Vicente Work Phone: [facility] 11-26-2023 12:35-0400 Diastolic blood pressure 71 mm[Hg] Dr. Lilly Vicente Work Phone: [facility] 11-26-2023 12:35-0400 Heart rate 63 /min Dr. Lilly Vicente Work Phone: [facility] 11-26-2023 12:35-0400 Respiratory rate 16 /min Dr. Lilly Vicente Work Phone: [facility] 11-26-2023 12:35-0400 SaO2% (BldA) [Mass fraction] 98 % Dr. Lilly Vicente Work Phone: [facility] 11-26-2023 12:35-0400 Systolic blood pressure 135 mm[Hg] Dr. Lilly Vicente Work Phone: [facility] 11-22-2023 17:21-0400 Body mass index (BMI) [Ratio] 21.6 kg/m2 Dr. Lilly Vicente Work Phone: [facility] 11-22-2023 17:21-0400 Body temperature 98.2 [degF] Dr. Lilly Vicente Work Phone: [facility] 11-22-2023 17:21-0400 Body weight 58.[address] Lilly Vicente Work Phone: [facility] 11-22-2023 17:21-0400 Diastolic blood pressure 68 mm[Hg] Dr. Lilly Vicente Work Phone: [facility] 11-22-2023 17:21-0400 Heart rate 88 /min Dr. Lilly Vicente Work Phone: [facility] 11-22-2023 17:21-0400 Respiratory rate 14 /min Dr. Lilly Vicente Work Phone: [facility] 11-22-2023 17:21-0400 SaO2% (BldA) [Mass fraction] 100 % Dr. Lilly Vicente Work Phone: [facility] 11-22-2023 17:21-0400 Systolic blood pressure 114 mm[Hg] Dr. Lilly Vicente Work Phone: [facility] 10-29-2023 12:22-0500 Body height 167.[address] Lilly Vicente Work Phone: [facility] 10-29-2023 12:22-0500 Body mass index (BMI) [Ratio] 20.9 kg/m2 Dr. Lilly Vicente Work Phone: [facility] 10-29-2023 12:22-0500 Body temperature 97.4 [degF] Dr. Lilly Vicente Work Phone: [facility] 10-29-2023 12:22-0500 Body weight 58.[address] Lilly Vicente Work Phone: [facility] 10-29-2023 12:22-0500 Diastolic blood pressure 56 mm[Hg] Dr. Lilly Vicente Work Phone: [facility] 10-29-2023 12:22-0500 Heart rate 61 /min Dr. Lilly Vicente Work Phone: [facility] 10-29-2023 12:22-0500 Respiratory rate 16 /min Dr. Lilly Vicente Work Phone: [facility] 10-29-2023 12:22-0500 SaO2% (BldA) [Mass fraction] 97 % Dr. Lilly Vicente Work Phone: [facility] 10-29-2023 12:22-0500 Systolic blood pressure 139 mm[Hg] Dr. Lilly Vicente Work Phone: [facility] 10-01-2023 12:01-0500 Body height 167.[address] Lilly Vicente Work Phone: [facility] 10-01-2023 12:01-0500 Body mass index (BMI) [Ratio] 21.6 kg/m2 Dr. Lilly Vicente Work Phone: [facility] 10-01-2023 12:01-0500 Body temperature 97.5 [degF] Dr. Lilly Vicente Work Phone: [facility] 10-01-2023 12:01-0500 Body weight 60.[address] Lilly Vicente Work Phone: [facility] 10-01-2023 12:01-0500 Diastolic blood pressure 68 mm[Hg] Dr. Lilly Vicente Work Phone: [facility] 10-01-2023 12:01-0500 Heart rate 70 /min Dr. Lilly Vicente Work Phone: [facility] 10-01-2023 12:01-0500 Respiratory rate 16 /min Dr. Lilly Vicente Work Phone: [facility] 10-01-2023 12:01-0500 SaO2% (BldA) [Mass fraction] 100 % Dr. Lilly Vicente Work Phone: [facility] 10-01-2023 12:01-0500 Systolic blood pressure 120 mm[Hg] Dr. Lilly Vicente Work Phone: [facility] 09-16-2023 15:30-0500 Body mass index (BMI) [Ratio] 21.6 kg/m2 Dr. Lilly Vicente Work Phone: [facility] 09-16-2023 15:30-0500 Body temperature 97.9 [degF] Dr. Lilly Vicente Work Phone: [facility] 09-16-2023 15:30-0500 Body weight 60.[address] Lilly Vicente Work Phone: [facility] 09-16-2023 15:30-0500 Diastolic blood pressure 74 mm[Hg] Dr. Lilly Vicente Work Phone: [facility] 09-16-2023 15:30-0500 Heart rate 69 /min Dr. Lilly Vicente Work Phone: [facility] 09-16-2023 15:30-0500 Respiratory rate 16 /min Dr. Lilly Vicente Work Phone: [facility] 09-16-2023 15:30-0500 SaO2% (BldA) [Mass fraction] 99 % Dr. Lilly Vicente Work Phone: [facility] 09-16-2023 15:30-0500 Systolic blood pressure 108 mm[Hg] Dr. Lilly Vicente Work Phone: [facility] 09-03-2023 12:32-0500 Body height 167.[address] Lilly Vicente Work Phone: [facility] 09-03-2023 12:32-0500 Body mass index (BMI) [Ratio] 21.4 kg/m2 Dr. Lilly Vicente Work Phone: [facility] 09-03-2023 12:32-0500 Body temperature 98 [degF] Dr. Lilly Vicente Work Phone: [facility] 09-03-2023 12:32-0500 Body weight 60.[address] Lilly Vicente Work Phone: [facility] 09-03-2023 12:32-0500 Diastolic blood pressure 66 mm[Hg] Dr. Lilly Vicente Work Phone: [facility] 09-03-2023 12:32-0500 Heart rate 64 /min Dr. Lilly Vicente Work Phone: [facility] 09-03-2023 12:32-0500 Respiratory rate 14 /min Dr. Lilly Vicente Work Phone: [facility] 09-03-2023 12:32-0500 SaO2% (BldA) [Mass fraction] 97 % Dr. Lilly Vicente Work Phone: [facility] 09-03-2023 12:32-0500 Systolic blood pressure 118 mm[Hg] Dr. Lilly Vicente Work Phone: [facility] 08-06-2023 11:41-0500 Body mass index (BMI) [Ratio] 22.4 kg/m2 Dr. Lilly Vicente Work Phone: [facility] 08-06-2023 11:41-0500 Body temperature 98.2 [degF] Dr. Lilly Vicente Work Phone: [facility] 08-06-2023 11:41-0500 Body weight 63.[address] Lilly Vicente Work Phone: [facility] 08-06-2023 11:41-0500 Diastolic blood pressure 62 mm[Hg] Dr. Lilly Vicente Work Phone: [facility] 08-06-2023 11:41-0500 Heart rate 66 /min Dr. Lilly Vicente Work Phone: [facility] 08-06-2023 11:41-0500 Respiratory rate 16 /min Dr. Lilly Vicente Work Phone: [facility] 08-06-2023 11:41-0500 SaO2% (BldA) [Mass fraction] 99 % Dr. Lilly Vicente Work Phone: [facility] 08-06-2023 11:41-0500 Systolic blood pressure 113 mm[Hg] Dr. Lilly Vicente Work Phone: [facility] 07-30-2023 09:49-0500 Body mass index (BMI) [Ratio] 22.7 kg/m2 Dr. Lilly Vicente Work Phone: [facility] 07-30-2023 09:49-0500 Body temperature 97.8 [degF] Dr. Lilly Vicente Work Phone: [facility] 07-30-2023 09:49-0500 Body weight 63.[address] Lilly Vicente Work Phone: [facility] 07-30-2023 09:49-0500 Diastolic blood pressure 74 mm[Hg] Dr. Lilly Vicente Work Phone: [facility] 07-30-2023 09:49-0500 Heart rate 68 /min Dr. Lilly Vicente Work Phone: [facility] 07-30-2023 09:49-0500 Respiratory rate 16 /min Dr. Lilly Vicente Work Phone: [facility] 07-30-2023 09:49-0500 SaO2% (BldA) [Mass fraction] 98 % Dr. Lilly Vicente Work Phone: [facility] 07-30-2023 09:49-0500 Systolic blood pressure 120 mm[Hg] Dr. Lilly Vicente Work Phone: [facility] 07-25-2023 18:40-0500 Diastolic blood pressure 74 mm[Hg] Dr. Lilly Vicente Work Phone: [facility] 07-25-2023 18:40-0500 Heart rate 62 /min Dr. Lilly Vicente Work Phone: [facility] 07-25-2023 18:40-0500 Respiratory rate 15 /min Dr. Lilly Vicente Work Phone: [facility] 07-25-2023 18:40-0500 SaO2% (BldA) [Mass fraction] 98 % Dr. Lilly Vicente Work Phone: [facility] 07-25-2023 18:40-0500 Systolic blood pressure 130 mm[Hg] Dr. Lilly Vicente Work Phone: [facility] 07-25-2023 14:14-0500 Body height 167.[address] Lilly Vicente Work Phone: [facility] 07-25-2023 14:14-0500 Body mass index (BMI) [Ratio] 21.8 kg/m2 Dr. Lilly Vicente Work Phone: [facility] 07-25-2023 14:14-0500 Body temperature 97.3 [degF] Dr. Lilly Vicente Work Phone: [facility] 07-25-2023 14:14-0500 Body weight 61.[address] Lilly Vicente Work Phone: [facility] 06-10-2023 16:01-0400 Body mass index (BMI) [Ratio] 23.3 kg/m2 Dr. Lilly Vicente Work Phone: [facility] 06-10-2023 16:01-0400 Body temperature 98.6 [degF] Dr. Lilly Vicente Work Phone: [facility] 06-10-2023 16:01-0400 Body weight 65.[address] Lilly Vicente Work Phone: [facility] 06-10-2023 16:01-0400 Diastolic blood pressure 76 mm[Hg] Dr. Lilly Vicente Work Phone: [facility] 06-10-2023 16:01-0400 Heart rate 57 /min Dr. Lilly Vicente Work Phone: [facility] 06-10-2023 16:01-0400 Respiratory rate 18 /min Dr. Lilly Vicente Work Phone: [facility] 06-10-2023 16:01-0400 SaO2% (BldA) [Mass fraction] 96 % Dr. Lilly Vicente Work Phone: [facility] 06-10-2023 16:01-0400 Systolic blood pressure 134 mm[Hg] Dr. Lilly Vicente Work Phone: [facility] 05-06-2023 08:43-0400 Body height 167.[address] Lilly Vicente Work Phone: [facility] 05-06-2023 08:43-0400 Body mass index (BMI) [Ratio] 23.3 kg/m2 Dr. Lilly Vicente Work Phone: [facility] 05-06-2023 08:43-0400 Body weight 65.[address] Lilly Vicente Work Phone: [facility] 04-19-2023 14:30-0400 Body height 167.[address] Lilly Vicente Work Phone: [facility] 04-19-2023 14:30-0400 Body mass index (BMI) [Ratio] 23.1 kg/m2 Dr. Lilly Vicente Work Phone: [facility] 04-19-2023 14:30-0400 Body temperature 98.6 [degF] Dr. Lilly Vicente Work Phone: [facility] 04-19-2023 14:30-0400 Body weight 65.[address] Lilly Vicente Work Phone: [facility] 04-19-2023 14:30-0400 Diastolic blood pressure 72 mm[Hg] Dr. Lilly Vicente Work Phone: [facility] 04-19-2023 14:30-0400 Heart rate 66 /min Dr. Lilly Vicente Work Phone: [facility] 04-19-2023 14:30-0400 Respiratory rate 14 /min Dr. Lilly Vicente Work Phone: [facility] 04-19-2023 14:30-0400 SaO2% (BldA) [Mass fraction] 96 % Dr. Lilly Vicente Work Phone: [facility] 04-19-2023 14:30-0400 Systolic blood pressure 120 mm[Hg] Dr. Lilly Vicente Work Phone: [facility] 02-01-2023 21:08-0400 Diastolic blood pressure 76 mm[Hg] Dr. Lilly Vicente Work Phone: [facility] 02-01-2023 21:08-0400 Heart rate 53 /min Dr. Lilly Vicente Work Phone: [facility] 02-01-2023 21:08-0400 Respiratory rate 16 /min Dr. Lilly Vicente Work Phone: [facility] 02-01-2023 21:08-0400 SaO2% (BldA) [Mass fraction] 97 % Dr. Lilly Vicente Work Phone: [facility] 02-01-2023 21:08-0400 Systolic blood pressure 134 mm[Hg] Dr. Lilly Vicente Work Phone: [facility] 02-01-2023 13:47-0400 Body height 167.[address] Lilly Vicente Work Phone: [facility] 02-01-2023 13:47-0400 Body mass index (BMI) [Ratio] 0.8 kg/m2 Dr. Lilly Vicente Work Phone: [facility] 02-01-2023 13:47-0400 Body temperature 97 [degF] Dr. Lilly Vicente Work Phone: [facility] 02-01-2023 13:47-0400 Body weight 2.[address] Lilly Vicente Work Phone: [facility] 12-19-2021 14:05-0400 Body height 167.[address] Lilly Vicente Work Phone: [facility] Work Phone: 12-19-2021 14:05-0400 Body mass index (BMI) [Ratio] 24.2 kg/m2 Dr. Lilly Vicente Work Phone: [facility] Work Phone: 12-19-2021 14:05-0400 Body weight 68.[address] Lilly Vicente Work Phone: [facility] Work Phone: 12-19-2021 14:05-0400 Diastolic blood pressure 69 mm[Hg] Dr. Lilly Vicente Work Phone: [facility] Work Phone: 12-19-2021 14:05-0400 Heart rate 63 /min Dr. Lilly Vicente Work Phone: [facility] Work Phone: 12-19-2021 14:05-0400 Respiratory rate 16 /min Dr. Lilly Vicente Work Phone: [facility] Work Phone: 12-19-2021 14:05-0400 SaO2% (BldA) [Mass fraction] 96 % Dr. Lilly Vicente Work Phone: [facility] Work Phone: 12-19-2021 14:05-0400 Systolic blood pressure 117 mm[Hg] Dr. Lilly Vicente Work Phone: [facility] Work Phone: 12-19-2021 14:05-0400 Body height 167.[address] Lilly Vicente Work Phone: [facility] Work Phone: 12-19-2021 14:05-0400 Body mass index (BMI) [Ratio] 24.2 kg/m2 Dr. Lilly Vicente Work Phone: [facility] Work Phone: 12-19-2021 14:05-0400 Body weight 68.[address] Lilly Vicente Work Phone: [facility] Work Phone: 12-19-2021 14:05-0400 Diastolic blood pressure 69 mm[Hg] Dr. Lilly Vicente Work Phone: [place] [facility] Work Phone: 12-19-2021 14:05-0400 Heart rate 63 /min Dr. Lilly Vicente Work Phone: [facility] Work Phone: 12-19-2021 14:05-0400 Respiratory rate 16 /min Dr. Lilly Vicente Work Phone: [facility] Work Phone: 12-19-2021 14:05-0400 SaO2% (BldA) [Mass fraction] 96 % Dr. Lilly Vicente Work Phone: [facility] Work Phone: 12-19-2021 14:05-0400 Systolic blood pressure 117 mm[Hg] Dr. Lilly Vicente Work Phone: [facility] Work Phone: 09-17-2021 16:02-0500 Body temperature 98.1 [degF] Dr. Lilly Vicente Work Phone: [facility] Work Phone: 09-17-2021 16:02-0500 Diastolic blood pressure 59 mm[Hg] Dr. Lilly Vicente Work Phone: [facility] Work Phone: 09-17-2021 16:02-0500 Heart rate 84 /min Dr. Lilly Vicente Work Phone: [facility] Work Phone: 09-17-2021 16:02-0500 Respiratory rate 18 /min Dr. Lilly Vicente Work Phone: [facility] Work Phone: 09-17-2021 16:02-0500 SaO2% (BldA) [Mass fraction] 96 % Dr. Lilly Vicente Work Phone: [facility] Work Phone: 09-17-2021 16:02-0500 Systolic blood pressure 113 mm[Hg] Dr. Lilly Vicente Work Phone: [facility] Work Phone: 09-17-2021 10:43-0500 Body mass index (BMI) [Ratio] 24.2 kg/m2 Dr. Lilly Vicente Work Phone: [facility] Work Phone: 09-17-2021 10:43-0500 Body weight 68.[address] Lilly Vicente Work Phone: [facility] Work Phone: Encounters Encounter Date Encounter Type Care Provider Facility Start: 05-12-2025 End: 05-12-2025 Emergency department patient visit Dr. Katalina Velazquez MD Work Phone: -Emergency Department Work Phone: Start: 04-03-2025 End: 04-03-2025 Patient encounter procedure Sun KEITH -[facility] Work Phone: Start: 04-03-2025 End: 04-03-[address] Katalina Velazquez MD Work Phone: -[facility] Start: 04-03-2025 End: 04-03-2025 ambulatory Katalina Velazquez Facility:[facility] Start: 03-28-2025 End: 03-28-[address] Katalina Velazquez MD Work Phone: -Laboratory Specimen Start: 03-28-2025 End: 03-28-2025 Patient encounter procedure Hiren DECKER -Laboratory Specimen Work Phone: Start: 03-28-2025 End: 03-28-2025 Patient encounter procedure Hiren Awad [facility] -[facility] Work Phone: Start: 03-28-2025 End: 03-28-[address] Katalina Velazquez MD Work Phone: -[facility] Start: 03-28-2025 End: 03-28-2025 ambulatory Katalina Velazquez Facility:[facility] Start: 02-13-2025 End: 02-13-[address] Austin Avina MD -[facility] Work Phone: Start: 02-13-2025 End: 02-13-[address] Katalina Velazquez MD Work Phone: [facility] Work Phone: Start: 01-29-[address] Katalina Velazquez MD Work Phone: [facility] Start: 01-29-2025 End: 01-29-[address] Katalina Velazquez MD -[facility] Work Phone: Start: 01-29-2025 End: 01-29-[address] Katalina Velazquez MD [facility] Start: 01-29-2025 End: 01-29-[address] Katalina Velazquez MD Work Phone: [facility] Work Phone: Start: 01-29-2025 End: 01-29-2025 ambulatory Katalina Velazquez Facility:[facility] Start: 01-19-2025 End: 01-19-2025 Patient encounter procedure Cindy DECKER -[facility] Work Phone: Start: 01-19-2025 End: 01-19-2025 ambulatory Katalina Velazquez Facility:[facility] Start: 01-08-2025 End: 01-08-[address] Parveen Mosqueda DO -Laboratory Work Phone: Start: 01-08-2025 End: 01-08-2025 ambulatory Katalina Velazquez Facility:[facility] Start: 01-05-2025 Non-patient / Non-visit Dr. Parveen Mosqueda DO -[facility] Work Phone: Start: 01-04-2025 End: 01-05-2025 Evaluation and management of inpatient Dr. Parveen Mosqueda DO -Medical Surgical 3 Work Phone: Start: 01-04-2025 ambulatory Makenzie Gonzáles Facility:[facility] Start: 01-04-2025 Non-patient / Non-visit Dr. Makenzie Gonzáles MD -[facility] Work Phone: Start: 12-28-2024 End: 12-28-[address] Katalina Velazquez MD Work Phone: [facility] Work Phone: Start: 12-28-2024 End: 12-28-2024 Patient encounter procedure Kimberley BennettCat Scan, [facility] Work Phone: Start: 12-28-2024 End: 12-28-2024 ambulatory Kimberley Montague Facility:[facility] Start: 12-18-2024 End: 12-18-[address] Katalina Velazquez MD Work Phone: [facility] Work Phone: Start: 12-18-2024 End: 12-18-2024 Patient encounter procedure Kimberley DECKER -Ultrasound, [facility] Work Phone: Start: 12-18-2024 End: 12-18-2024 ambulatory Kimberley Montague Facility:[facility] Start: 12-08-2024 End: 12-08-2024 Patient encounter procedure Kimberley DECKER -[facility] Work Phone: Start: 12-08-2024 End: 12-08-[address] Katalina Velazquez MD Work Phone: [facility] Work Phone: Start: 12-08-2024 End: 12-08-2024 ambulatory Kimberley Montague Facility:[facility] Start: 11-27-2024 End: 11-27-[address] Katalina Velazquez MD Work Phone: [facility] Work Phone: Start: 11-27-2024 End: 11-27-[address] Katalina Velazquez MD -Outpatient Breast Imaging Work Phone: Start: 11-27-2024 End: 11-27-2024 ambulatory Katalina Velazquez Facility:[facility] Start: 11-15-2024 End: 11-15-[address] Katalina Velazquez MD Work Phone: [facility] Work Phone: Start: 11-15-2024 End: 11-15-[address] Austin Avina MD -Outpatient Bone Densitometry Work Phone: Start: 11-15-2024 End: 11-15-2024 ambulatory Austin Avina Facility:[facility] Start: 11-13-2024 End: 11-13-[address] Katalina Velazquez MD -[facility] Work Phone: Start: 11-13-2024 End: 11-13-2024 ambulatory Katalina Velazquez Facility:[facility] Start: 09-19-2024 End: 09-19-2024 Patient encounter procedure Hiren DECKER -[facility] Work Phone: Start: 09-19-2024 End: 09-19-2024 ambulatory Katalina Velazquez Facility[facility] Start: 09-14-2024 [facility] Start: 09-14-2024 Non-patient / Non-visit Dr. Kishor Isabel MD -[facility] Start: 09-14-2024 End: 09-14-[address] Katalina Velazquez MD -[facility] Work Phone: Start: 09-14-2024 End: 09-14-2024 [facility] Start: 09-01-2024 End: 09-01-[address] Ta Smith MD -[facility] Work Phone: Start: 09-01-2024 End: 09-01-2024 ambulatory Ta Smith Facility:[facility] Start: 08-16-2024 End: 08-16-[address] Austin Avina MD -[facility] Work Phone: Start: 08-16-2024 End: 08-16-2024 [facility] Start: 08-14-2024 End: 08-14-[address] Katalina Velazquez MD -[facility] Work Phone: Start: 08-14-2024 End: 08-14-2024 [facility] Start: 08-14-2024 End: 08-14-[address] Ta Smith MD -[facility] Work Phone: Start: 08-14-2024 End: 08-14-2024 [facility] Start: 07-28-2024 End: 07-28-2024 ambulatory Austin Fabrice Facility:[facility] Start: 07-13-2024 End: 07-13-2024 [facility]ulatory [facility] Start: 07-06-2024 ambulatory [facility] Facili ty:[facility] Start: 07-06-2024 End: 07-06-2024 [facility] Start: 06-20-2024 End: 06-20-2024 ambulatory [facility] Facility:[facility] Start: 06-12-2024 End: 06-12-2024 ambulatory [facility] Facility:[facility] Start: 06-12-2024 End: 06-12-2024 ambulatory [facility] Facility:[facility] Start: 05-19-2024 End: 05-19-2024 ambulatory [facility] Facility:[facility] Start: 01-21-2024 End: 01-21-[address] Katalina Velazquez Work Phone: [facility] Work Phone: Start: 01-21-2024 End: 01-21-[address] Katalina Velazquez Work Phone: [facility]-Medical Out Work Phone: Start: 01-14-2024 End: 01-14-[address] Katalina Velazquez Work Phone: [facility] Work Phone: Start: 01-14-2024 End: 01-14-[address] Katalina Velazquez Work Phone: [facility], [facility] Work Phone: Start: 12-24-2023 End: 12-24-[address] Lilly Vicente Work Phone: [facility] Work Phone: Start: 12-24-2023 End: 12-24-[address] Lilly Vicente Work Phone: [facility]-Medical Out Work Phone: Start: 12-16-2023 End: 12-16-[address] Lilly Vicente Work Phone: [facility] Work Phone: Start: 12-16-2023 End: 12-16-[address] Lilly Vicente Work Phone: [facility] Work Phone: Start: 11-29-2023 End: 11-29-[address] Lilly Vicente Work Phone: [facility] Work Phone: Start: 11-26-2023 End: 11-26-[address] Lilly Vicente Work Phone: [facility] Work Phone: Start: 11-26-2023 End: 11-26-[address] [facility] Start: 11-22-2023 End: 11-22-[address] Lilly Vicente Work Phone: [facility] Work Phone: Start: 10-29-2023 End: 10-29-[address] Lilly Vicente Work Phone: [facility] Work Phone: Start: 10-29-2023 End: 10-29-[address] [facility] Start: 10-01-2023 End: 10-01-[address] Lilly Vicente Work Phone: [facility] Work Phone: Start: 10-01-2023 End: 10-01-[address] [facility] Start: 09-16-2023 End: 09-16-[address] Lilly Vicente Work Phone: [facility] Work Phone: Start: 09-03-2023 End: 09-03-[address] Lilly Vicente Work Phone: [facility] Work Phone: Start: 09-03-2023 End: 09-03-[address] Lilly Vicente Work Phone: [facility]-Medical Out Work Phone: Start: 08-06-2023 End: 08-06-[address] Lilly Vicente Work Phone: [facility]-Medical Out Work Phone: Start: 07-30-2023 End: 07-30-[address] Lilly Vicente Work Phone: [facility] Work Phone: Start: 07-26-2023 End: 07-26-[address] Lilly Vicente Work Phone: [facility] Work Phone: Start: 07-26-2023 End: 07-26-[address] Lilly Vicente Work Phone: [facility]-Laboratory, Specimen Work Phone: Start: 07-25-2023 End: 07-25-2023 Emergency department patient visit Dr. Lilly Vicente Work Phone: [facility]-Emergency Department Work Phone: Start: 06-23-2023 End: 06-23-[address] Lilly Vicente Work Phone: [facility] Work Phone: Start: 06-10-2023 End: 06-10-[address] Lilly Vicente Work Phone: [facility] Work Phone: Start: 05-31-2023 End: 05-31-[address] Lilly Vicente Work Phone: [facility] Work Phone: Start: 05-24-2023 End: 05-24-[address] Lilly Vicente Work Phone: [facility] Work Phone: Start: 05-15-2023 End: 05-15-[address] Lilly Vicente Work Phone: [facility] Work Phone: Start: 05-15-2023 End: 05-15-[address] Lilly Vicente Work Phone: [facility] Work Phone: Start: 05-06-2023 End: 05-06-[address] Lilly Vicente Work Phone: [facility] Work Phone: Start: 04-26-2023 End: 04-26-[address] Lilly Vicente Work Phone: [facility] Work Phone: Start: 04-26-2023 End: 04-26-[address] Lilly Vicente Work Phone: [facility], [facility] Work Phone: Start: 04-19-2023 End: 04-19-[address] Lilly Vicente Work Phone: [facility] Work Phone: Start: 04-19-2023 End: 04-19-[address] Lilly Vicente Work Phone: [facility] Work Phone: Start: 03-08-2023 End: 03-08-[address] Lilly Vicente Work Phone: [facility] Work Phone: Start: 03-08-2023 End: 03-08-[address] iLlly Vicente Work Phone: [facility] Work Phone: Start: 02-24-2023 End: 02-24-[address] Lilly Vicente Work Phone: [facility] Work Phone: Start: 02-24-2023 End: 02-24-[address] Lilly Vicente Work Phone: [facility]-Laboratory Start: 02-01-2023 End: 02-01-2023 Emergency department patient visit Dr. Lilly Vicente Work Phone: [facility]-Emergency Department Start: 01-20-2023 End: 01-20-[address] Lilly Vicente Work Phone: [facility] Work Phone: Start: 01-20-2023 End: 01-20-[address] Lilly Vicente Work Phone: [facility] Start: 01-04-2023 End: 01-04-[address] Lilly Vicente Work Phone: [facility] Start: 11-05-2022 End: 11-05-[address] Lilly Vicente Work Phone: [facility] Work Phone: Start: 11-05-2022 End: 11-05-[address] Lilly Vicente Work Phone: [facility]-Outpatient Bone Densitometry Start: 10-16-2022 End: 10-16-[address] Lilly Vicente Work Phone: [facility] Work Phone: Start: 10-16-2022 End: 10-16-[address] Lilly Vicente Work Phone: [facility] Start: 08-12-2022 End: 08-12-[address] Lilly Huber Phone: [facility] Start: 04-06-2022 End: 04-06-[address] Lilly Vicente Work Phone: [facility] Start: 02-19-2022 End: 02-19-[address] Lilly Vicente Work Phone: [facility] Start: 01-02-2022 End: 01-02-[address] [facility] Start: 12-22-2021 End: 12-22-[address] [facility] Start: 12-19-2021 End: 12-19-[address] [facility] Start: 10-09-2021 Non-patient / Non-visit Dr. Lilly Huber Phone: [facility] Start: 10-09-2021 End: 10-09-[address] Lilly Vicente Work Phone: [facility]-Cardiovascular Services Start: 10-03-2021 End: 10-03-2021 Patient encounter procedure LILLY VICENTE DO [facility] Start: 09-17-2021 End: 09-17-2021 Emergency department patient visit Dr. Lilly Vicente Work Phone: [facility]-Emergency Department Procedures Date Procedure Procedure Detail Performing Clinician Start: 04-03-[address] Katalina Velazquez MD Work Phone: Start: 03-28-[address] Katalina Velazquez MD Work Phone: Start: 01-19-2025 X-ray of lumbar spine, two or three views Dr. Katalina Velazquez MD Work Phone: Start: 01-05-[address] John Velazquez MD Work Phone: Start: 01-04-2025 Iadna-dna/rna gi pthgn multiplex probe tq 6-11 Dr. Katalina Velazquez MD Work Phone: Start: 01-04-2025 Urnls dip stick/tablet reagent auto microscopy Dr. Katalina Velazquez MD Work Phone: Start: 01-04-[address] Mike Velazquez MD Work Phone: Start: 01-04-[address] Katalina Velazquez MD Work Phone: Start: 01-04-[address] Katalina Velazquez MD Work Phone: Start: 01-04-[address] Katalina Velazquez MD Work Phone: Start: 01-04-2025 Hepatitis A virus antibody, IgM type Dr. Katalina Velazquez MD Work Phone: Comment on above: A negative anti-HAV IgM result suggests no recent orcurrent HAV infection. Start: 01-04-2025 Hepatitis B core antibody measurement, IgM type Dr. Katalina Velazquez MD Work Phone: Start: 01-04-2025 Hepatitis C antibody measurement Dr. Katalina Velazquez MD Work Phone: Start: 01-04-[address] Katalina Velazquez MD Work Phone: Start: 12-28-2024 CT angiography of neck vessels Dr. John Velazquez MD Work Phone: Start: 12-18-2024 US scan of thyroid Dr. Katalina Velazquez MD Work Phone: Start: 11-27-[address] Katalina Velazquez MD Work Phone: Start: 11-27-2024 Ultrasonography of thyroid and parathyroid Dr. Katalina Velazquez MD Work Phone: Start: 11-15-2024 Dual energy X-ray absorptiometry Dr. Katalina Velazquez MD Work Phone: Start: 09-14-2024 CT angiography of coronary arteries Dr. Katalina Velazquez MD Work Phone: Start: 08-14-2024 MRI of cervical spine Dr. Katalina Velazquez MD Work Phone: Start: 01-14-[address] Katalina Velazquez Work Phone: Start: 11-26-[address] Lilly Vicente Work Phone: Start: 07-26-[address] Jarvis Vicente Work Phone: Start: 07-25-2023 Computed tomography of abdomen and pelvis with intravenous contrast Dr. Lilly Vicente Work Phone: Start: 07-25-[address] Jarvis Vicente Work Phone: Start: 07-25-[address] Lilly Vicente Work Phone: Start: 07-25-[address] Lilly Vicente Work Phone: Start: 05-15-2023 MRI of lumbar spine Dr. Lilly Vicente Work Phone: Start: 04-26-2023 X-ray of lumbosacral spine Dr. Lilly Vicente Work Phone: Start: 04-19-[address] Lilly Vicente Work Phone: Start: 03-08-2023 Computed tomography of abdomen and pelvis with contrast Dr. Lilly Vicente Work Phone: Start: 02-01-[address] Jarvis Vicente Work Phone: Start: 01-20-[address] Lilly Vicente Work Phone: Start: 11-05-2022 Dual energy X-ray absorptiometry Dr. Lilly Vicente Work Phone: Start: 11-05-[address] Lilly Vicente Work Phone: Start: 10-16-2022 Pelvis X-ray Dr. Lilly Vicente Work Phone: Start: 01-02-2022 Radionuclide imaging of liver and/or biliary tract using radioactive isotope Dr. Lilly Vicente Work Phone: Start: 12-22-2021 End: 12-22-[address] Jarvis Kaysay Work Phone: Start: 12-22-[address] Lilly Vicente Work Phone: Start: 12-22-2021 End: 12-22-[address] Lilly Vicente Work Phone: Start: 12-22-2021 End: 12-22-20[address] [place] parasites identification [address]. Jarvis Vicente Work Phone: Start: 10-09-2021 Radionuclide imaging of perfusion of myocardium under exercise stress Dr. Lilly Vicente Work Phone: Start: 09-17-2021 CT angiography of chest with contrast Dr. Lilly Vicente Work Phone: Start: 09-17-2021 Plain chest X-ray Dr. Lilly Vicente Work Phone: Start: 05-24-2018 Mammography LILLY WHYTEY [employer] Comment on above: BI-RADS 2 Benign, follow up 1 year Start: 06-25-2016 Colonoscopy LILLY VICENTE [employer] Comment on above: Dr Matos Repeat every 3 years Cataract extraction and insertion of intraocular lens LILLY WHYTEY [employer] Comment on above: BILATERAL EYES Cholecystectomy samp le (specimen) LILLY WHYTEY [employer] Entire palatine tons il (body structure) LILLY VICENTE [employer] Hiatal hernia (disorder) AYAD ADRIENNE WHYTEY [employer] History of cholecystectomy Histo ry of cholecystectomy Dr. Lilly Vicente Work Phone: [facility] parasites identification Dr. Lilly Vicente Work Phone: Total abdominal hyst erectomy with bilateral salpingo-oophorectomy LILLY CINTHIA [employer] Plan of Treatment Date Care Activity Detail Author Start: 05-12-2025 [facility] Start: 01-29-2025 Comprehensive metabolic 2000 panel - Serum or Plasma [facility] Start: 01-29-2025 T4 free measurement [facility] Start: 01-29-2025 Thyroid stimulating hormone measurement [facility] Start: 01-05-2025 Patient discharge [facility] Start: 01-04-2025 Application of intermittent pneumatic compression device [facility] Start: 01-04-2025 End: 01-04-2025 Following clinical pathway protocol [facility] Start: 01-04-2025 Assessment of risk of venous thromboembolism [facility] Start: 01-04-2025 Inhalation therapy procedure [facility] Start: 01-04-2025 Insertion of catheter into peripheral vein [facility] Start: 01-04-2025 Providing care according to standard [facility] Start: 01-04-2025 Provision of activity privileges [facility] Start: 01-04-2025 Referral to occupational therapist [facility] Start: 01-04-2025 Referral to service [facility] Start: 01-04-2025 [facility] Start: 01-04-2025 Admission procedure [facility] Start: 01-04-2025 Enteric precautions [facility] Start: 01-04-2025 Patient referral to dietitian [facility] Start: 11-27-2024 Screening mammography SCRN MAMM (CAD)W/JONN BILAT [facility] Start: 07-25-2023 [facility] Start: 07-25-2023 Enteric precautions [facility] [facility] Start: 07-25-2023 C. difficile DNA Amplification C. difficile DNA Amplification [facility] Start: 07-25-2023 Enteric Bacteriology Enteric Bacteriology [facility] Start: 07-25-2023 Stool Lactoferrin Stool Lactoferrin [facility] Start: 06-10-2023 Patient referral [facility] Work Phone: Start: 05-25-2023 Patient referral [facility] Work Phone: Start: 02-01-2023 Enteric precautions [facility] Alanine aminotransfe rase [Enzymatic activity/volume] in Serum or Plasma [facility] Albumin [Mass/volume ] in Serum or Plasma [facility] Alkaline phosphatase [Enzymatic activity/volume] in Serum or Plasma [facility] Anion gap in Serum o r Plasma [facility] Bilirubin, total measurement [facility] BUN/Creatinine ratio [facility] Calcium [Mass/volume ] in Serum or Plasma [facility] Carbon dioxide, tota l [Moles/volume] in Central venous blood [facility] Clostridioides diffi cile DNA [Presence] in Unspecified specimen by OUMAR with probe detection [facility] Comprehensive metabo lic 2000 panel - Serum or Plasma [facility] Creatinine [Mass/vol ume] in Serum or Plasma [facility] CT Chest [facility] CTA Neck vessels WO and W contrast IV [facility] Cyclic citrullinated peptide IgG Ab [Units/volume] in Serum or Plasma [facility] Gastrointestinal pat hogens panel - Stool by OUMAR with probe detection [facility] Glucose [Mass/volume ] in Serum or Plasma [facility] Hepatitis A virus Ig M Ab [Presence] in Serum [facility] Hepatitis B core ant ibody measurement, IgM type [facility] Hepatitis B surface antigen measurement [facility] Hepatitis C antibody measurement [facility] HLA-B27 [Presence] b y OUMAR with probe detection [facility] Lactoferrin [Presenc e] in Stool by Immunoassay [facility] Lipid 1995 panel - S alisia or Plasma [facility] Lipid 1995 panel - S alisia or Plasma [facility] Measurement of renal function [facility] Ova and parasites identified in Unspecified specimen by Light microscopy [facility] Patient Education [facility] Work Phone: Patient referral [facility] Work Phone: Potassium measurement [facility] Procedure [facility] Serum chloride measurement [facility] Sodium measurement [facility] Total protein measurement [facility] Urea nitrogen [Mass/ volume] in Serum or Plasma [facility] US Extremity limited [facility] US Thyroid gland [facility] Immunizations Immunization Date Immunization Notes Care Provider Fa [facility] 06-12-2024 Seasonal trivalent influenza vaccine, adjuvanted, preservative free Dr. Katalina Velazquez MD Work Phone: [facility] 12-05-2020 Covid (Pfizer) Dr. Lilly benitez Work Phone: [facility] 11-14-2020 Covid (Pfizer) Dr. Lilly benitez Work Phone: [facility] 06-28-2020 influenza, injectabl e, quadrivalent, preservative free; Translations: [Fluarix PF Quadrivalent ] LILLY VICENTE DO [facility] 04-18-2018 pneumococcal polysaccharide vaccine, 23 valent LILLY VICENTE DO [facility] 02-02-2017 pneumococcal conjuga te vaccine, 13 valent LILLY VICENTE DO [facility] 08-14-2014 zoster vaccine, live LILLY CINTHIA MCKINNEY [facility] Payers Date Payer Category Payer Self-pay [id number] 2024 Self-pay [id number] 2017 Unknown [id number] 2015 Medicare [id number] Unknown [id number] 2.16.8 40.1.676895.3.579.2.462 Unknown [id number] 2.16.8 40.1.462828.3.579.2.462 Unknown [id number] 2.16.8 40.1.433428.3.579.2.462 Unknown [id number] 2.16.8 40.1.009586.3.579.2.462 Unknown [id number] 2.16.8 40.1.482841.3.579.2.462 Unknown [id number] 2.16.8 40.1.944195.3.579.2.462 Unknown [id number] 2.16.8 40.1.007257.3.579.2.462 Unknown [id number] 2.16.8 40.1.752837.3.579.2.462 Unknown [id number] 2.16.8 40.1.748506.3.579.2.462 Unknown [id number] 2.16.8 40.1.254876.3.579.2.462 Unknown [id number] 2.16.8 40.1.023985.3.579.2.462 Unknown [id number] 2.16.8 40.1.561711.3.579.2.462 Unknown [id number] 2.16.8 40.1.817608.3.579.2.462 Unknown [id number] 2.16.8 40.1.753229.3.579.2.462 Unknown [id number] 2.16.8 40.1.427716.3.579.2.462 Unknown [id number] 2.16.8 40.1.664952.3.579.2.462 Unknown [id number] 2.16.8 40.1.672613.3.579.2.462 Unknown [id number] 2.16.8 40.1.011226.3.579.2.462 Unknown [id number] 2.16.8 40.1.099342.3.579.2.462 Unknown [id number] 2.16.8 40.1.021508.3.579.2.462 Unknown [id number] 2.16.8 40.1.782954.3.579.2.462 Unknown [id number] 2.16.8 40.1.712760.3.579.2.462 Unknown [id number] 2.16.8 40.1.541810.3.579.2.462 Unknown [id number] 2.16.8 40.1.658601.3.579.2.462 Unknown [id number] 2.16.8 40.1.417698.3.579.2.462 Unknown [id number] 2.16.8 40.1.786379.3.579.2.462 Unknown [id number] 2.16.8 40.1.396112.3.579.2.462 Unknown [id number] 2.16.8 40.1.524815.3.579.2.462 Unknown [id number] 2.16.8 40.1.303518.3.579.2.462 Unknown [id number] 2.16.8 40.1.604965.3.579.2.462 Unknown [id number] 2.16.8 40.1.217599.3.579.2.462 Unknown [id number] 2.16.8 40.1.264141.3.579.2.462 Unknown [id number] 2.16.8 40.1.701638.3.579.2.462 Unknown [id number] 2.16.8 40.1.969725.3.579.2.462 Unknown [id number] 2.16.8 40.1.889184.3.579.2.462 Unknown [id number] 2.16.8 40.1.157977.3.579.2.462 Unknown [id number] 2.16.8 40.1.676119.3.579.2.462 Social History Date Type Detail Facility Start: 04-04-2021 Heavy tobacco smoker (finding) [facility] Comment on above: no smoke exposure Start: 1950 Sex Assigned At Female A [facility] Start: 12-19-2021 End: 12-16-2023 Tobacco smoking status AZIS Unknown if ever smoked [facility] Start: 07-07-2019 None [facility] Start: 07-07-2019 Spouse/ Signif icant Other [facility] Start: 07-08-2019 Cigarettes [facility] Start: 12-16-2023 End: 05-12-2025 Tobacco smoking status NHIS Ex-smoker (finding) [facility] Start: 11-27-2024 End: 01-05-2025 Sex Female (finding) [facility] Goals Date Patient Goal Desired Activity /State Functional Status Date Assessment Result Facility 01-05-2025 Functional status Ambulates;Bedrest [facility] Work Phone: Mental Status Date Assessment Result Facility 01-05-2025 Cognitive function Voice/Name [facility] Work Phone: 01-21-2024 Cognitive function Voice/Name [facility] Work Phone: 12-24-2023 Cognitive function Awake;Alert;A ppropriate;Fol lows Commands [facility] Work Phone: 11-26-2023 Cognitive function Awake;Alert;A ppropriate;Fol lows Commands [facility] Work Phone: 10-29-2023 Cognitive function Voice/Name [facility] Work Phone: 09-03-2023 Cognitive function Voice/Name [facility] Work Phone: 08-06-2023 Cognitive function Awake;Alert;A ppropriate;Fol lows Commands [facility] Work Phone: 09-17-2021 Cognitive function Awake;Alert;A ppropriate;Fol lows Commands [facility] Work Phone: Clinical Notes 11-20-2021 to 05-12-2025 Note Date & Type Note Facility 05-12-2025 Discharge summary [facility] 04-03-2025 Radiology Diagnostic study note [facility] Imaging Services [address] [place] [id number] Lung Screening MR#: [id number] Acct: [id number] Name: ZEE RAMIREZ Rep #: [id number] : 1950 F 74 From: Kristopher Blair MD PCP: Dr. Katalina Velazquez MD Status: R MIRANDA CLI Study:Low Dose CT Lung Screening Date of Exam : 04/03/25 Exam# [id number] Ordering Dr: Sun Das NP CERTIFIED FAMILY MEDIATOR-C PROCEDURE: LOW DOSE CT LUNG SCREENING 04/03/2025 REASON FOR EXAM: LUNG CANCER SCREENING TECHNIQUE: LOW DOSE CT LUNG SCREENING Coronal and Sagittal reconstruction series were provided. Lung windows only One or more dose reduction techniques were used (e.g., Automated exposure control, adjustment of the mA and/or kV according to patient size, use of iterative reconstruction technique). REFERENCE LINK: [facility] Lung-RADS RADIATION DOSE SUMMARY: DLP: 63 mGycm COMPARISON: September 14, 2024 FINDINGS: PULMONARY NODULES: (Only nodules >3mm are reported) Pulmonary Nodules: There is a 0.8 x 0.6 cm solid nodular density in the left lung base, image 172/227, new. There is a 0.5 cm nodular density in the left lingular segment, image 177/227, new. Hardware:None Lymph Nodes:None Heart and Vasculature:Atherosclerotic calcifications are noted Lungs and Airways: There is no acute infiltrate or consolidation Pleura:There is no pneumothorax or effusion Upper Abdomen:Anatomic detail is limited Bones:There is no visible bony abnormality CT/Low Dose CT Lung Screening IMPRESSION: There is a 0.8 x 0.6 cm solid nodular density in the left lung base, image 172/227, new. There is a 0.5 cm nodular density in the left lingular segment, image 177/227, new. Coronary artery calcification (CAC) is present Lung-RADS Category: 4A: Probably suspicious: Three-month chest CT correlation isrecommended. Reading Location: [facility] CC: SAGAR Crandall; Dr. 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 2024 10:08am Elevated liver enzymes acute Ne 2024 10:08am Health care maintenance acute [facility] 2024 10:08am Localized swelling, mass and lump, neck acute January 29, 2025 10:08am Anxiety and depression chronic 2024 10:08am GERD (gastroesophageal reflux disease) chronic January 29, 2025 10:08am Osteoporosis chronic February 13 11:16am Encounter for screening for malignant neoplasm of lung acute April 03, 2025 11:57am Former smoker acute April 03, 2025 11:57am [facility] Work Phone: 1(995) 328-588304-25-2025 Discharge summary [facility] Medical Records Department [facility] [place] [address] [address] Instructions for Home/Discharge Instructions 01/05/25 1459 MR#: [id number] Acct: [id number] Name: ZEE RAMIREZ Rep #:[id number] : 1950 74 From: Parveen Mosqueda DO PCP: Dr. Katalina Velazquez MD Status:A DM IN Discharge Instructions Diet Discharge Diet: No restrictions (Resume previous diet) DC O2, CPAP, BIPAP needs Home O2 Discharge instructions: No Dressing / Incision Discharge Activity: Return to Normal Activity Weight Bearing Status: Full weight bearing Follow Up Care Test Results: Test results from this visit will be discussed in further detail at your follow- up appointment, if applicable. Discharge Plan Admission Admit Date/Time: 01/04/25 16:08 Primary Reason for Your Visit: Hypovolemic shock, shock liver Attending Provider: Parveen Mosqueda Primary Care Provider: Katalina Velazquez Consulting Providers: Makenzie Gonzáles Instructions Additional Instructions / Restrictions: Get your liver profile rechecked on Wednesday01/08/25 Discharge Orders/Prescriptions Prescriptions: Continued PreserVision AREDS [id number] wxsa-oh-[id number] capsule 1 cap PO BID cholecalciferol (vitamin D3) 25 mcg (1,000 unit) capsule 25 mcg PO DAILY denosumab 60 mg/mL syringe 60 mg subcut [id number] Qty: 1 1RF hydroxyzine HCl 25 mg tablet 25 mg PO BID PRN (Reason: anxiety) Qty: 60 1RF gabapentin 100 mg capsule 100 mg PO TID PRN (Reason: NERVE PAIN) calcium carbonate 600 MG tablet 1,200 mg PO DAILY L. acidophilus-L. rhamnosus 1 EACH capsule 1 ea PO DAILY dicyclomine 20 mg tablet 20 mg PO BID PRN (Reason: abdominal pain) 7 Days Qty: 14 0RF duloxetine [Cymbalta] 30 mg capsule,delayed release(DR/EC) 60 mg PO QHS Rx Instructions: TAKE 1 CAP IN AM, 2 CAPS QHS cyclosporine [Restasis] 0.05 % dropperette 1 drp ophthalmic (eye) Q12H cholestyramine (with sugar) 4 gram powder in packet 4 g PO QHS PRN (Reason: diarrhea) duloxetine 30 mg capsule,delayed release(DR/EC) 30 mg PO DAILY Rx Instructions: TAKE 1 CAP IN AM, 2 CAPS QHS vitamin E 268 mg (400 unit) capsule 268 mg PO DAILY bupropion HCl 150 mg tablet extended release 24 hr 150 mg PO DAILY Qty: 90 1RF Creon 36,000-114,000- 180,000 unit capsule,delayed release(DR/EC) 1 cap PO TID Qty: 320 11RF Rx Instructions: administer with meals and/or snacks Referrals / Follow Up: Katalina Velazquez MD [Primary Care Provider] - See Referral Note (At next officevisit) Disposition Disposition (needs filled in before D/C Order can be placed): Home, Self Care 01/05/25 Milagro9Parveen Mosqueda DO CC: Dr. Katalina Velazquez MD; Dr. Makenzie Gonzáles MD ~ Signed [facility]04-25-2025 [facility] Medical Records Department [address] [place] [address] Discharge Summary 01/05/25 1509 MR#: [id number] Acct: [id number] Name: ZEE RAMIREZ Rep #: [id number] : 1950 74 From: Parveen Mosqueda DO PCP: Dr. Katalina Velazquez MD Status:DIS IN [id number] Providers Date of Admission: 01/04/25 Date of Discharge: 01/05/25 Primary Care Physician: Dr. Katalina Velazquez MD Reason For Visit: ELEVATED LIVER FUNCTION TESTS, DIARRHEA Diagnosis Discharge Diagnosis (1) Elevated liver enzymes: Status: Acute Code(s): R74.8 - Abnormal levels of other serum enzymes Plan 1. Elevated liver enzymes from shock liver secondary to hypotension #2 hypotension secondary to volume depletion #3 pancreatic insufficiency Medications at Discharge Home Medications calcium carbonate 1,200 mg PO DAILY 07/07/19 Lactobacillus acidophilus and rhamnosus 15 billion cell capsule 1 ea PO DAILY 09/09/19 vitamins A,C,A-tggk-mohtax 4,296 mcg-226 mg-90 mg capsule (PreserVision AREDS) 1 cap PO BID 12/19/21 dicyclomine 20 mg tablet 20 mg PO BID PRN abdominal pain 7 days #14 tabs 07/25/23 cholecalciferol (vitamin D3) 25 mcg (1,000 unit) capsule 25 mcg PO DAILY 07/30/23 hydroxyzine HCl 25 mg tablet 25 mg PO BID PRN anxiety #60 tabs 06/12/24 gabapentin 100 mg capsule 100 mg PO TID PRN NERVE PAIN 07/13/24 denosumab 60 mg/mL subcutaneous syringe 60 mg subcut [id number] #1 mL 07/28/24 bupropion HCl 150 mg 24 hr tablet, extended release 150 mg PO DAILY #90 tabs 10/04/24 fvqezy-vrwchxwc-szcgruk 36,000-114,000-180,000 unit capsule,delay rel (Creon) 1 cap PO TID #320 caps 10/25/24 cholestyramine (with sugar) 4 gram powder for susp in a packet 4 g PO QHS PRN diarrhea 01/04/25 cyclosporine 0.05 % eye drops in a dropperette (Restasis) 1 drp ophthalmic (eye) Q12H 01/04/25 duloxetine 30 mg capsule,delayed release 30 mg PO DAILY 01/04/25 duloxetine 30 mg capsule,delayed release (Cymbalta) 60 mg PO QHS NERVE PAIN 01/04/25 vitamin E 268 mg (400 unit) capsule 268 mg PO DAILY 01/04/25 Hospital Course Operations None Procedures None Summary of Care Provided Minutes Spent on Discharge: 30 Hospital Course: This 74-year-old white female was seen in the emergency room at [facility] presenting with complaints of diarrhea, generalized weakness, headache, and numbness and tingling of her hands. She stated she took her blood pressure at home and it was low. Vital signs in the emergency room showed her blood pressure to be 100/58, labs were remarkable for a white blood cell count of 3.2, BUN was elevated at 26, lactic acid was elevated 2.2, AST was elevated at 910, ALT was elevated at 889, alkaline phosphatase was elevated at 269. UA showed +2 bacteria but no white cells or red cells. Liver ultrasound showed fatty infiltration of the liver and a nonobstructive right intrarenal calculus. The patient was admitted to [place] [address] and given IV fluids, patient's blood pressure improved during her hospitalization, repeat liver enzymes declined markedly. It was felt that the patient had shock liver. Patient requested discharge home and stated that she felt fine and was able to walk without difficulty. On 01/05/2025, patient was seen and examined: On examination she appeared in good health and spirits, she does not appear to be in any distress. Vital signs as documented. Skin warm and dry and without overt rashes. Neck without JVD, thyroid appears normal, trachea is midline, neck is supple. Lungs clear, normal air movement was noted. Heart exam notable for regular rhythm, normal sounds and absence of murmurs, rubs or gallops. Abdomen unremarkable and without evidence of organomegaly, masses, or abdominal aortic enlargement, bowel sounds are present in all 4 quadrants, no abdominal tenderness was noted. Extremities nonedematous, no cyanosis was noted, no clubbing was noted. Neuro: Cranial nerves II through XII are grossly intact, no focal motor deficits were noted, sensation to light touch and pinprick is intact, motor exam 5/5 throughout. Psych: Patient is alert and oriented x3, she does not appear anxious or depressed, she does not appear agitated. Patient was discharged home in stable condition on 01/05/2025. Weight / BMI Weight Weight: 67.3 kg Body Mass Index (BMI) 24.7 ABG / Lab / Microbiology Data 01/05/25 03:51 01/05/25 03:51 Laboratory: Laboratory Results - last 24 hr 01/04/25 14:00: Total Creatine Kinase 65 01/04/25 14:50: Urine Color Yellow, Urine Clarity Sl. Cloudy, Urine pH 5.0, Ur Specific [place] 1.025, Urine Protein 30 H, Urine Glucose (UA) Normal, Urine Ketones 15 H, Urine Occult Blood Negative, Urine Nitrite Negative, Urine Bilirubin 1 H, Urine Urobilinogen 1 H, Ur Leukocyte Esterase Negative, Urine RBC 0 SEEN, Urine WBC 0 SEEN, Ur Squamous Epith Cells (more content not included)...[facility]04-25-2025 Hospital Discharge instructions Additional Instructions Get your liver profile rechecked on Wednesday01/08/25 Date of Discharge: 01/05/25[facility] Work Phone: 1(672) 832-608704-24-2025 Discharge summary Author Radha Elias [facility] Note Date/Time January 04, 2025 5:3 3pm [facility] Medical Records Department [address] [place] [address] Emergency Department Summary 01/04/25 MR#: [id number] Acct: [id number] Name: ZEE RAMIREZ Rep #:[id number] : 1950 74 From: Radha Campbell PCP: Dr. Katalina Velazquez MD Status:A DM IN Location: MS3 [id number] HPI History of Present Illness Chief Complaint: General Illness Informant: patient Narrative Narrative: Patient 74-year-old female with history of degenerative disc disease, cervical myelopathy, headaches, fibromyalgia, chronic hip pain, exocrine pancreatic insufficiency and prior C. difficile presenting with with diarrhea, generalizedweakness, numbness and tingling of her hands and around her face as well as increased neck pain and headache. Patient states she had diarrhea all day yesterday. She states her legs are so weak she felt she could not walk. She has associated nausea but no vomiting. Overnight she notes that her back pain which had been worsening seem to be okay but she continued have diarrhea. She developed bilateral neck pain that she describes as electrical pulsing sensationthat is rapidfire. She notes it is now moved into more of a frontal headache but she continues to have neck pain. She developed numbness and tingling and heaviness of her arms and the numbness and tingling around her mouth and her chin today. She came in for further evaluation. States that when she has to have a bowel movement she has to go very quickly and has had some stool incontinence because of this. Denies any black or blood in her stool. No she did have a heavy meal on Wednesday (4 days ago) for Easter but had been doing fine until yesterday. States this does not feel like when she had C. difficile. Does note that she took her blood pressure at home and it was low. She denies any recent medication changes. Does follow with Dr. Coyle, for painmanagement, Dr. Smith for spine and Dr. Spencer for GI. [facility] Medical History Degenerative disc disease Fibromyoma Depression Former smoker Coronary artery disease At high risk for cardiovascular disease Localized swelling, mass and lump, neck Blister of gingiva with infection Submandibular lymphadenopathy Screening for cardiovascular condition Degenerative cervical disc Flu vaccine need Ulnar neuropathy of right upper extremity Chronic neck pain Allergic rhinosinusitis Allergic conjunctivitis Acute conjunctivitis, unspecified Varicose veins of bilateral lower extremities with pain Chronic back pain Anxiety and depression Hx of headache H/O emotional problems Hx of cataract History of back problems Allergies Urinary tract infection with hematuria Positive P-ANCA titer Osteoarthritis Breast lump Arthritis Left knee pain Hypokalemia Hypocalcemia De Quervain's tenosynovitis Anxiety Acute kidney injury TMJ arthralgia Right knee pain Mass of urinary bladder EIC (epidermal inclusion cyst) Depressive disorder Coronary artery calcification Calcification of abdominal aorta Atypical chest pain Epigastric pain Umbilical hernia Retroperitoneal lymphadenopathy Panic disorder Normocytic anemia Lumbar back pain IBS (irritable bowel syndrome) Hydronephrosis Elevated liver enzymes Diverticulitis Osteoporosis Fibromyalgia Home Medications ?Medication ?Instructions ?Recorded ?Last Taken ?Type calcium carbonate 1,200 mg PO DAILY 07/07/19 0 01/04/25 History Lactobacillus acidophilus and 1 ea PO DAILY 09/09/19 0 01/04/25 History rhamnosus 15 billion cell capsule vitamins A,C,D-hwde-cikpac 4,296 1 cap PO BID 12/19/21 01/04/25 History mcg-226 mg-90 mg capsule (PreserVision AREDS) dicyclomine 20 mg tablet 20 mg PO BID PRN abdominal p ain 7 07/25/23 Unknown Rx days #14 tabs cholecalciferol (vitamin D3) 25 25 mcg PO DAILY 01/04/25 History mcg (1,000 unit) capsule comp.stocking,thigh,long,small #2 ea 12/16/23 Unknown Rx hydroxyzine HCl 25 mg tablet 25 mg PO BID PRN anxiety #60 tabs 06/12/24 Unknown Rx gabapentin 100 mg capsule 100 mg PO TID PRN NERVE PAIN 07/13/24 Unknown History denosumab 60 mg/mL subcutaneous 60 mg subcut [id number] #1 mL 07/28/24 08/14/24 Rx syringe bupropion HCl 150 mg 24 hr tablet, 150 mg PO DAILY #90 tabs 10/04/24 01/04/25 Rx extended release yxpqoa-opoxhouj-tkzpjxn 1 cap PO TID #320 caps 10/2501/04/25 Rx 36,000-114,000-180,000 unit capsule,delay rel (Creon) cholestyramine (with sugar) 4 gram 4 g PO QHS PRN diar bro 01/04/25 Unknown History powder for susp in a packet cyclosporine 0.05 % eye drops in a 1 drp ophthalmic (e ye) Q12H 01/04/25 01/04/25 History dropperette (Restasis) duloxetine 30 mg capsule,delayed 30 mg PO DAILY 01/04/25 History release duloxetine 30 mg capsule,delayed 30 mg PO QHS 01/04/25 01/03/25 History release (Cymbalta) vitamin E 268 mg (400 unit) capsule 268 mg PO DAILY 01/04/25 History Allergy/AdvReac Type Severity Reaction Status Date / Time codeine Allergy Rash Verified 01/04/25 10:09 ibandronate sodium (From AdvReac EXTREME Verified 01/04/25 10:09 Boniva) GERD plasic tape Allergy Mild Rash Uncoded 12/08/24 08:46 Family History Father Arthritis Grandmother Diabetes Grandfather Myocardial infarction Mother Myocardial infarction CVA (cerebral vascular accident) Other Fibromyalgia IBS (irritable bowel syndrome) Surgical History History of cholecystectomy History of cholecystectomy H/O: hysterectomy Hx of colonoscopy Cataract extraction status History of repair of hiatal hernia Social History Smoking Status: Former smoker alcohol intake: never substance use type: does not use what type of physical activity do you participate in: none ROS ROS ED Constitutional Constitutional ED: Denies chills or fever(s) ENT ENT ED: Denies rhinorrhea or sore throat Cardiovascular Cardiovascular: Denies chest pain Respiratory/Chest Respiratory/Chest: Denies cough or dyspnea Gastrointestinal Gastrointestinal: Reports diarrhea and nausea; Denies abdominal pain or melena Musculoskeletal Musculoskeletal: Reports arthralgias, myalgias and neck pain Integumentary Denies rash Neurologic Neurologic: Reports headache(s) and weakness Psychiatric Psychiatric: Reports anxiety Hematologic/Lymphatic Hematologic/Lymphatic: Denies easy bleeding or easy bruising EXAM Physical Exam Const Vital Signs: 01/04/25 10:08 01/04/25 10:09 01/04/25 10:12 Temperature 98.2 F 98 F Temperature Source Temporal Temporal Pulse Rate 79 64 Respiratory Rate 20 H 13 Respiratory Pattern Tachypnea Blood Pressure 100/58 L 100/53 L Blood Pressure Mean 72 68 Pulse Ox 100 100 Oxygen Delivery Method Room Air 01/04/25 12:08 01/04/25 14:00 Temperature Temperature Source Pulse Rate 77 77 Respiratory Rate 18 18 Respiratory Pattern Blood Pressure 100/66 100/60 Blood Pressure Mean 77 73 Pulse Ox 96 97 Oxygen Delivery Method Positive well nourished and well developed General Appearance ED: well developed and NAD HEENT Reports dry mucous membranes Mouth ED: Yes dry mucous membranes Mouth: dry mucous membranes Eyes PERRL General Eye ED: Negative for scleral icterus Neck no lymphadenopathy and supple Neck Narrative: Normal range of motion of the neck. No midline tenderness. Patient points to the base of her cervical spine in the paraspinal region as the area of pain. Has spasm over the bilateral sternocleidomastoid (right worse than left) with associated tenderness. No crepitus appreciated. No pulsatile mass appreciated. General: tenderness Chest Wall inspection of chest normal Resp normal respiratory effort and clear to auscultation bilaterally Cardio regular rate and regular rhythm GI normal to inspection, nondistended, normoactive bowel sounds, non-tender and non-distended Extremity normal to inspection General Extremety ED: Negative for edema General Extremity: Negative for edema Neuro oriented x3 Neuro Narrative: Equal almond grinder strength bilaterally. Normal strength of the upper and lower extremities. Mild difficulty with raising the left leg but attributes that to her bad hip. Sensorium / Orientation: alert Motor Exam: general weakness Psych mental status grossly normal Mood & Affect: anxious Skin no rashes or lesions noted and no wounds General Skin Exam: Negative for jaundice MDM MDM MDM Narrative Medical decision making narrative: Patient is evaluated for worsening neck pain as well as nausea and diarrhea. She states she could not walk yesterday and her legs would not work because she was so weak. She also reports paresthesias to her arms and around her mouth that occurred this morning. That is since resolved. She does not have any focal weakness on exam. No focal neurologic deficits appreciated. I suspect she had a component of electrolyte abnormality/carpopedal spasm from her story. Did obtain blood work given the report of nausea, diarrhea and paresthesias. Patient is a leukopenia with a left shift. BMP shows findings of dehydration with a bicarb of 19.2. Furthermore I suspect she is hemoconcentrated as her hemoglobin is above her baseline today. She has an acute transaminitis with an AST of 910, ALT of 889 and alkaline phosphatase of 269. Of note patient had normal liver enzymes a month ago. Her bilirubin is normal as well as sufficient for acute obstructive process. CPK obtained which is normal. Tylenol level added on however patient states she only had 2 dose of Tylenol yesterday within the last week. This is negative. Acute hepatitis panel is ordered. Patient's lactate is elevated at 2.2 by spec this is more from dehydration and not sepsis/acute infection. After 2 L fluid bolus her lactate is gone down to 1.2. Patient is given multiple medications for her headache and neck pain. Her headache sounds to be like a tension headache. Reports a history of this. No focal neurologic deficits, vision changes or injury reported so I do not think she requires a CT of the brain. Does not report a thunderclap headache. Her neck pain seems to be a mixture of muscle spasm of the sternocleidomastoid as well as possibly cervical neuralgia. Patient is given multiple medications for her symptoms in the ER including Toradol, Zofran, Reglan, lorazepam, droperidol, dexamethasone and Flexeril and continues to have pain in her neck and generalized malaise. She states she does not feel comfortable going home asshe lives home alone and does not have a lot of support and she just feels terrible. Case discussed with hospitalist for admission, Dr. Gonzáles. I also discussed the case with GI given her transaminitis, Dr. Spencer. He feels that likely this is either viral or possibly ischemic associated with her low blood pressure as she reported at home. He states management is generally supportive at this time and no further acute recommendations. Stool studies are ordered for patient's diarrhea. Does report a history of intermittent diarrhea but attributes that to her extreme pancreatic insufficiency. Lab Data Attestation: I reviewed the patient's lab results. Labs: Laboratory Results - last 24 hr 01/04/25 01/04/25 01/04/25 10:35 12:14 14:00 WBC 3.2 L RBC 4.95 Hgb 15.1 H Hct 45.0 MCV 90.9 MCH 30.5 MCHC 33.6 RDW Std Deviation 46.0 H RDW Coeff of Nellie 13.7 Plt Count 184 MPV 11.0 Immature Gran % (Auto) 1.000 H Neut % (Auto) 80.6 H Lymph % (Auto) 6.7 L [place] % (Auto) 11.1 H Eos % (Auto) 0.0 Baso % (Auto) 0.6 Absolute Neuts (auto) 2.5 Absolute Lymphs (auto) 0.21 L Nucleated RBC % 0 Differential Comment COMMENT Sodium 135 Potassium 3.7 Chloride 104 Carbon Dioxide 19.2 L Anion Gap 12 BUN 26 H Creatinine 0.90 Estim Creat Clear Calc 49.35 L Est GFR (MDRD) Non-Af 67 BUN/Creatinine Ratio 29.0 H Glucose 93 Lactic Acid 2.2 H* Calcium 8.2 Total Bilirubin 0.55 Direct Bilirubin 0.23 AST 910 H ALT 889 H Alkaline Phosphatase 269 H Total Creatine Kinase 68 65 Total Protein 6.7 Albumin 4.0 Globulin 2.7 Lipase 15 Urine Color Urine Clarity Urine pH Ur Specific [place] Urine Protein Urine Glucose (UA) Urine Ketones Urine Occult Blood Urine Nitrite Urine Bilirubin Urine Urobilinogen Ur Leukocyte Esterase Urine RBC Urine WBC Ur Squamous Epith Cells Urine Bacteria Urine Mucus Salicylates < 0.5 L 01/04/25 01/04/25 14:50 15:37 WBC RBC Hgb Hct MCV MCH MCHC RDW Std Deviation RDW Coeff of Nellie Plt Count MPV Immature Gran % (Auto) Neut % (Auto) Lymph % (Auto) [place] % (Auto) Eos % (Auto) Baso % (Auto) Absolute Neuts (auto) Absolute Lymphs (auto) Nucleated RBC % Differential Comment Sodium Potassium Chloride Carbon Dioxide Anion Gap BUN Creatinine Estim Creat Clear Calc Est GFR (MDRD) Non-Af BUN/Creatinine Ratio Glucose Lactic Acid 1.2 Calcium Total Bilirubin Direct Bilirubin AST ALT Alkaline Phosphatase Total Creatine Kinase Total Protein Albumin Globulin Lipase Urine Color Yellow Urine Clarity Sl. Cloudy Urine pH 5.0 Ur Specific [place] 1.025 Urine Protein 30 H Urine Glucose (UA) Normal Urine Ketones 15 H Urine Occult Blood Negative Urine Nitrite Negative Urine Bilirubin 1 H Urine Urobilinogen 1 H Ur Leukocyte Esterase Negative Urine RBC 0 SEEN Urine WBC 0 SEEN Ur Squamous Epith Cells 0 SEEN Urine Bacteria 2+ Urine Mucus RARE Salicylates Radiography Diagnostic Testing: Clinical Impression(s) from Imaging Studies Liver Ultrasound 01/04/25 12:02 IMPRESSION: Fatty infiltration of the liver. Status post cholecystectomy. Nonobstructive 9 mm x 6 mm right intrarenal calculus. Reading Location: [facility] Rhythm Strip Rhythm Strip: Sinus Rhythm Rate: 62 Ectopy: None EKG Initial EKG: Attestation: I personally reviewed and interpreted this EKG as follows: Interpretation: Sinus Rhythm Comments: Normal sinus rhythm at a rate of 62 bpm Normal axis Normal intervals Normal ST segments No significant change greater prior EKG on 09/17/2021 Management Discussion w/another healthcare provider: Hospitalist and Prosthetic Lab Technician Discharge Plan Triage Chief Complaint: General Illness ED Provider: Radha Elias Dx/Rx/DC Orders Clinical Impression: Elevated liver enzymes, Degenerative cervical disc, Dehydration Primary Care Provider: Katalina Velazquez Disposition Disposition: Acute Care Hospital [facility] What to do if you have Problems For any increased pain, shortness of breath, bleeding, nausea or vomiting, chestpain, or any unexpected problems, contact your Primary Care Provider. Call [facility] ([phone]) or report to the closest Emergency Room. Call 911 if necessary. 01/04/25 1733 <Electronically signed by Radha Elias DO> Cosigner Signature (if applicable): CC: Dr. Katalina Velazquez MD ~ Signed [facility] Work Phone: [phone] 673-351604-24-2025 History and physical note Author Makenzie Gonzáles [facility] Note Date/Time January 04, 2025 4:2 7pm [facility] Medical Records Department [address] [place] [address] H&P Exam - Hospitalist 01/04/25 1607 MR#: [id number] Acct: [id number] Name: ZEE RAMIREZ Rep #:[id number] : 1950 74 From: Makenzie Gonzáles MD PCP: Dr. Katalina Velazquez MD Status:R EG ER Location: ED HPI - General General Date of Admission: 01/04/25 Date of Service: 01/04/25 Chief Complaint: Neck pain, diarrhea, generalized weakness HPI Narrative ZEE JAMES, is a 74-year-old female history of degenerative disc disease, fibromyalgia, pancreatic insufficiency, anxiety and depression who presented [facility] ED 01/04/2025 for diarrhea, generalized weakness, and numbness and tingling of her hands and around her face as well as increased neckpain and headache. She has had diarrhea all day yesterday and feels so weak that she cannot walk. Has also had some nausea but no vomiting. Also has worsening of her chronic back and neck pain. Having posterior headache as well as arm heaviness. Patient does follow with Dr. Coyle for pain management, Dr. Smith for orthospine, and Dr. Spencer for GI. In the ED patient afebrile with a blood pressure 100/58, 100% on room air with respiratory rate of 20 and heart rate of 79. CBC demonstrated a white blood cell count of 3.2, hemoglobin 15.1 and BMP with a creatinine of 0.90 and BUN of 26, slightly up from baseline but not significantly so. Lactic acid also 2.2. Liver panel revealed new elevations in liver function with an AST of 910, ALT 889, and alk phos of 269. Hepatitis panel ordered and is pending, salicylate negative, liver ultrasound only demonstrated fatty infiltration of the liver and previous cholecystectomy. Given pts new and significant liver function elevations hospitalist contacted for admission. Patient evaluated at bedside reports that she is here because she is concerned about the neck pain that starts in her neck and goes up her head and started as a zap and out intermittently will have some pulsing pain, reports she feels like her arms and lower face have some numbness though it is better than when she came in, reports that yesterday she had increase in her chronic lower back pain with numbness in her feet but this is back to baseline, the diarrhea started yesterday and she has had many episodes, had 1 earlier whenshe arrived but has not in the past couple of hours, little bit of generalized abdominal pain. When asked if she has any lightheadedness she reports she feelsoff balance. Denies any fevers, no change in urination. [facility] Medical History (Updated 01/04/25 @ 16:[address] Makenzie Gonzáles MD) Acute conjunctivitis, unspecified Acute kidney injury Allergic conjunctivitis Allergic rhinosinusitis Allergies Anxiety Anxiety and depression Arthritis At high risk for cardiovascular disease Atypical chest pain Blister of gingiva with infection Breast lump Calcification of abdominal aorta Chronic back pain Chronic neck pain Coronary artery calcification Coronary artery disease De Quervain's tenosynovitis Degenerative cervical disc Degenerative disc disease Depression Depressive disorder Diverticulitis EIC (epidermal inclusion cyst) Elevated liver enzymes Epigastric pain Fibromyalgia Fibromyoma Flu vaccine need Former smoker H/O emotional problems History of back problems Hx of cataract Hx of headache Hydronephrosis Hypocalcemia Hypokalemia IBS (irritable bowel syndrome) Left knee pain Localized swelling, mass and lump, neck Lumbar back pain Mass of urinary bladder Normocytic anemia Osteoarthritis Osteoporosis Panic disorder Positive P-ANCA titer Retroperitoneal lymphadenopathy Right knee pain Screening for cardiovascular condition Submandibular lymphadenopathy 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 Umbilical hernia Urinary tract infection with hematuria Varicose veins of bilateral lower extremities with pain Home Medications ?Medication ?Instructions ?Recorded ?Last Taken ?Type calcium carbonate 1,200 mg PO DAILY 07/07/19 0 01/04/25 History Lactobacillus acidophilus and 1 ea PO DAILY 09/09/19 0 01/04/25 History rhamnosus 15 billion cell capsule vitamins A,C,S-bkad-utjdmw 4,296 1 cap PO BID 12/19/21 01/04/25 History mcg-226 mg-90 mg capsule (PreserVision AREDS) dicyclomine 20 mg tablet 20 mg PO BID PRN abdominal p ain 7 07/25/23 Unknown Rx days #14 tabs cholecalciferol (vitamin D3) 25 25 mcg PO DAILY 01/04/25 History mcg (1,000 unit) capsule comp.stocking,thigh,long,small #2 ea 12/16/23 Unknown Rx hydroxyzine HCl 25 mg tablet 25 mg PO BID PRN anxiety #60 tabs 06/12/24 Unknown Rx gabapentin 100 mg capsule 100 mg PO TID PRN NERVE PAIN 07/13/24 Unknown History denosumab 60 mg/mL subcutaneous 60 mg subcut [id number] #1 mL 07/28/24 08/14/24 Rx syringe bupropion HCl 150 mg 24 hr tablet, 150 mg PO DAILY #90 tabs 10/04/24 01/04/25 Rx extended release mkgkns-ylsrvewt-cxygudz 1 cap PO TID #320 caps 10/2501/04/25 Rx 36,000-114,000-180,000 unit capsule,delay rel (Creon) cholestyramine (with sugar) 4 gram 4 g PO QHS PRN diar bro 01/04/25 Unknown History powder for susp in a packet cyclosporine 0.05 % eye drops in a 1 drp ophthalmic (e ye) Q12H 01/04/25 01/04/25 History dropperette (Restasis) duloxetine 30 mg capsule,delayed 30 mg PO DAILY 01/04/25 History release duloxetine 30 mg capsule,delayed 30 mg PO QHS 01/04/25 01/03/25 History release (Cymbalta) vitamin E 268 mg (400 unit) capsule 268 mg PO DAILY 01/04/25 History Allergy/AdvReac Type Severity Reaction Status Date / Time codeine Allergy Rash Verified 01/04/25 10:09 ibandronate sodium (From AdvReac EXTREME Verified 01/04/25 10:09 Boniva) GERD plasic tape Allergy Mild Rash Uncoded 12/08/24 08:46 Family History Father Arthritis Grandmother Diabetes Grandfather Myocardial infarction Mother Myocardial infarction CVA (cerebral vascular accident) Other Fibromyalgia IBS (irritable bowel syndrome) Surgical History (Updated 01/04/25 @ 15:05 by Charo Boykin) Cataract extraction status H/O: hysterectomy History of cholecystectomy History of cholecystectomy History of repair of hiatal hernia Hx of colonoscopy Social History Smoking Status: Former smoker alcohol intake: never substance use type: does not use what type of physical activity do you participate in: none ROS ROS Narrative General: Denies fever/chills HENT: Posterior neck and headache, denies sore throat EYES: Denies changes in vision Resp: Denies cough, denies shortness of breath Cardiac: Denies chest pain GI: Little bit of nausea, little bit of general abdominal pain, 1 and half days of diarrhea : Denies changes in urination Extremity: Denies swelling MSK: Garland arms were heavy Neuro: Garland some numbness and tingling in hands and around mouth Heme: Denies any bleeding or bruising Skin: Denies rashes Psychiatric: No complaints voiced Vital Signs Vital Signs Vital Signs: 01/04/25 10:08 01/04/25 10:09 01/04/25 10:12 Temperature 98.2 F 98 F Temperature Source Temporal Temporal Pulse Rate 79 64 Respiratory Rate 20 H 13 Respiratory Pattern Tachypnea Blood Pressure 100/58 L 100/53 L Blood Pressure Mean 72 68 Pulse Ox 100 100 Oxygen Delivery Method Room Air 01/04/25 12:08 01/04/25 14:00 Temperature Temperature Source Pulse Rate 77 77 Respiratory Rate 18 18 Respiratory Pattern Blood Pressure 100/66 100/60 Blood Pressure Mean 77 73 Pulse Ox 96 97 Oxygen Delivery Method Weight Weight: 67.6 kg Body Mass Index (BMI) 24.7 Physical Exam Narrative General: Alert, oriented, no apparent distress HEENT: Atraumatic, normocephalic Eyes: Anicteric, normal conjunctiva, extraocular movements grossly intact Neck: Supple Respiratory: Clear to auscultation bilaterally, normal respiratory effort Cardiovascular: Regular rate and rhythm GI: Soft, nontender, nondistended, no rebound, guarding, rigidity Extremities: No edema Musculoskeletal: Moving all extremities 5 out of 5 strength, no pain on palpation of neck Neuro: No overt focal neurological deficits Skin: No rashes appreciated Psych: Cooperative Results Lab / Micro Data 01/04/25 10:35 01/04/25 10:35 Labs: Laboratory Results - last 24 hr 01/04/25 10:35: WBC 3.2 L, RBC 4.95, Hgb 15.1 H, Hct 45.0, MCV 90.9, MCH 30.5, MCHC 33.6, RDW Std Deviation 46.0 H, RDW Coeff of Nellie 13.7, Plt Count 184, MPV 11.0, Immature Gran % (Auto) 1.000 H, Neut % (Auto) 80.6 H, Lymph % (Auto) 6.7 L, [place] % (Auto) 11.1 H, Eos % (Auto) 0.0, Baso % (Auto) 0.6, Absolute Neuts (auto) 2.5, Absolute Lymphs (auto) 0.21 L, Nucleated RBC % 0, Differential Comment COMMENT, Sodium 135, Potassium 3.7, Chloride 104, Carbon Dioxide 19.2 L,Anion Gap 12, BUN 26 H, Creatinine 0.90, Estim Creat Clear Calc 49.35 L, Est GFR(MDRD) Non-Af 67, BUN/Creatinine Ratio 29.0 H, Glucose 93, Lactic Acid 2.2 H*, Calcium 8.2, Total Bilirubin 0.55, Direct Bilirubin 0.23, AST 910 H, ALT 889 H, Alkaline Phosphatase 269 H, Total Creatine Kinase 68, Total Protein 6.7, Albumin4.0, Globulin 2.7, Lipase 15 01/04/25 12:14: Salicylates < 0.5 L 01/04/25 14:00: Total Creatine Kinase 65 01/04/25 14:50: Urine Color Yellow, Urine Clarity Sl. Cloudy, Urine pH 5.0, Ur Specific [place] 1.025, Urine Protein 30 H, Urine Glucose (UA) Normal, Urine Ketones 15 H, Urine Occult Blood Negative, Urine Nitrite Negative, Urine Bilirubin 1 H, Urine Urobilinogen 1 H, Ur Leukocyte Esterase Negative Imaging Radiology Impression Liver Ultrasound 01/04/25 12:02 IMPRESSION: Fatty infiltration of the liver. Status post cholecystectomy. Nonobstructive 9 mm x 6 mm right intrarenal calculus. [facility] Assessment & Plan Assessment/Plan (1) Elevated liver enzymes: PLAN: Plan #Elevated liver function tests -Liver US w/ fatty infiltration -Hepatitis panel pending - Salicylate negative - Will check acetaminophen level -Patient reports she took 2 Tylenol arthritis today into yesterday but denies taking any additional Tylenol or any new medications or supplements -Will check PT/INR - ED physician discussed with GI in the ED and it was recommended patient be discharged home if stable with outpatient follow-up, patient was generally weak which is why she required admission, if liver function improves tomorrow may be able to follow closely with GI outpatient however if worsens will likely need inpatient GI consult - Trend CMP - Avoid hepatotoxic agents # Nausea/diarrhea/generalized weakness -IV fluids -Will check enteric panel and C. difficile -Patient leukopenic and also has generalized weakness with GI symptoms and diarrhea as well check respiratory panels -Given her reports of feeling so generally weak she can barely walk and does notfeel comfortable going home will also have PT/OT evaluate - Will check TSH # Neck pain -Patient has neck pain that seems to radiate up her head and will intermittentlypulse -Neurologically patient has 5 out of 5 strength, initially poor effort however when encouraged multiple times is able to use full-strength -No pain on palpation of neck - Lidocaine patch - Avoiding acetaminophen given elevated liver enzymes - Ibuprofen, Zanaflex - Patient did receive Decadron in the ED # History of pancreatic insufficiency - Continue home Creon #Depression/anxiety -Continue home medications # Fibromyalgia/degenerative disc disease/chronic pain - Continue patient's home medications #DVT ppx: SCDs Makenzie Gonzáles MD Charges/Coding Visit Charges Inpatient E&M: 27345 Init Hosp L2 01/04/25 1627 <Electronically signed by Makenzie Gonzáles MD> Cosigner Signature (if applicable): CC: Dr. Katalina Velazquez MD; Dr. Makenzie Gonzáles MD~ Signed [facility] Work Phone: 1([phone]) 909-938004-24-2025 Evaluation note* Diagnosis Onset Date Resolution Status Admit Date Elevated liver enzymes acute Ap ril 2024 4:08pm Degenerative disc disease at L5-S1 level acute January 19, 2025 9: 48am Spondylolisthesis at L5-S1 level non eactive January 19, 2025 9:48am Coronary artery disease acute [facility] 2024 10:08am Elevated liver enzymes acute Ne y 2024 10:08am Health care maintenance acute [facility] 2024 10:08am Localized swelling, mass and lump, neck acute January 29, 2025 10:08am Anxiety and depression chronic Ne y 2024 10:08am GERD (gastroesophageal reflu x disease) chronic January 29, 2025 10:08am Osteoporosis chronic February 13 11:16am Encounter for screening for malignant neoplasm of lung acute April 03, 2025 11:57am Former smoker acute April 03, 2025 11:57am [facility] Work Phone: [phone]) 935-681104-24-2025 Discharge summary [facility] Medical Records Department [address] [place] [address] Emergency Department Summary 01/04/25 MR#: [id number] Acct: [id number] Name: ZEE RAMIREZ Rep #:[id number] : 1950 74 From: Radha Campbell PCP: Dr. Katalina Velazquez MD Status:A DM IN Location: MS3 [id number] HPI History of Present Illness Chief Complaint: General Illness Informant: patient Narrative Narrative: Patient 74-year-old female with history of degenerative disc disease, cervical myelopathy, headaches, fibromyalgia, chronic hip pain, exocrine pancreatic insufficiency and prior C. difficile presenting with with diarrhea, generalizedweakness, numbness and tingling of her hands and around her face as well as increased neck pain and headache. Patient states she had diarrhea all day yesterday. She states her legs are so weak she felt she could not walk. She has associated nausea but no vomiting. Overnight she notes that her back pain which had been worsening seem to be okay but she continued have diarrhea. She developed bilateral neck pain that she describes as electrical pulsing sensationthatis rapidfire. She notes it is now moved into more of a frontal headache but she continues to haveneck pain. She developed numbness and tingling and heaviness of her arms and the numbness and tingling around her mouth and her chin today. She came in for further evaluation. States that when she has to have a bowel movement she has to go very quickly and has had some stool incontinence because ofthis. Denies any black or blood in her stool. No she did have a heavy meal on Wednesday (4 days ago) for Easter but had been doing fine until yesterday. States this does not feel like when she had C. difficile. Does note that she took her blood pressure at home and it was low. She denies any recent medication changes. Does follow with Dr. Coyle, for painmanagement, Dr. Smith for spine and Dr. Spencer for GI. [facility] Medical History Degenerative disc disease Fibromyoma Depression Former smoker Coronary artery disease At high risk for cardiovascular disease Localized swelling, mass and lump, neck Blister of gingiva with infection Submandibular lymphadenopathy Screening for cardiovascular condition Degenerative cervical disc Flu vaccine need Ulnar neuropathy of right upper extremity Chronic neck pain Allergic rhinosinusitis Allergic conjunctivitis Acute conjunctivitis, unspecified Varicose veins of bilateral lower extremities with pain Chronic back pain Anxiety and depression Hx of headache H/O emotional problems Hx of cataract History of back problems Allergies Urinary tract infection with hematuria Positive P-ANCA titer Osteoarthritis Breast lump Arthritis Left knee pain Hypokalemia Hypocalcemia De Quervain's tenosynovitis Anxiety Acute kidney injury TMJ arthralgia Right knee pain Mass of urinary bladder EIC (epidermal inclusion cyst) Depressive disorder Coronary artery calcification Calcification of abdominal aorta Atypical chest pain Epigastric pain Umbilical hernia Retroperitoneal lymphadenopathy Panic disorder Normocytic anemia Lumbar back pain IBS (irritable bowel syndrome) Hydronephrosis Elevated liver enzymes Diverticulitis Osteoporosis Fibromyalgia Home Medications ?Medication ?Instructions ?Recorded ?Last Taken ?Type calcium carbonate 1,200 mg PO DAILY 07/07/19 0 01/04/25 History Lactobacillus acidophilus and 1 ea PO DAILY 09/09/19 0 01/04/25 History rhamnosus 15 billion cell capsule vitamins A,C,H-ysss-qhfvfl 4,296 1 cap PO BID 12/19/21 01/04/25 History mcg-226 mg-90 mg capsule (PreserVision AREDS) dicyclomine 20 mg tablet 20 mg PO BID PRN abdominal p ain 7 07/25/23 Unknown Rx days #14 tabs cholecalciferol (vitamin D3) 25 25 mcg PO DAILY 01/04/25 History mcg (1,000 unit) capsule comp.stocking,thigh,long,small #2 ea 12/16/23 Unknown Rx hydroxyzine HCl 25 mg tablet 25 mg PO BID PRN anxiety #60 tabs 06/12/24 Unknown Rx gabapentin 100 mg capsule 100 mg PO TID PRN NERVE PAIN 07/13/24 Unknown History denosumab 60 mg/mL subcutaneous 60 mg subcut [id number] #1 mL 07/28/24 08/14/24 Rx syringe bupropion HCl 150 mg 24 hr tablet, 150 mg PO DAILY #90 tabs 10/04/24 01/04/25 Rx extended release rowkmq-eawqnmeu-jlteany 1 cap PO TID #320 caps 10/2501/04/25 Rx 36,000-114,000-180,000 unit capsule,delay rel (Creon) cholestyramine (with sugar) 4 gram 4 g PO QHS PRN diar bro 01/04/25 Unknown History powder for susp in a packet cyclosporine 0.05 % eye drops in a 1 drp ophthalmic (e ye) Q12H 01/04/25 01/04/25 History dropperette (Restasis) duloxetine 30 mg capsule,delayed 30 mg PO DAILY 01/04/25 History release duloxetine 30 mg capsule,delayed 30 mg PO QHS 01/04/25 01/03/25 History release (Cymbalta) vitamin E 268 mg (400 unit) capsule 268 mg PO DAILY 01/04/25 History Allergy/AdvReac Type Severity Reaction Status Date / Time codeine Allergy Rash Verified 01/04/25 10:09 ibandronate sodium (From AdvReac EXTREME Verified 01/04/25 10:09 Boniva) GERD plasic tape Allergy Mild Rash Uncoded 12/08/24 08:46 Family History Father Arthritis Grandmother Diabetes Grandfather Myocardial infarction Mother Myocardial infarction CVA (cerebral vascular accident) Other Fibromyalgia IBS (irritable bowel syndrome) Surgical History History of cholecystectomy History of cholecystectomy H/O: hysterectomy Hx of colonoscopy Cataract extraction status History of repair of hiatal hernia Social History Smoking Status: Former smoker alcohol intake: never substance use type: does not use what type of physical activity do you participate in: none ROS ROS ED Constitutional Constitutional ED: Denies chills or fever(s) ENT ENT ED: Denies rhinorrhea or sore throat Cardiovascular Cardiovascular: Denies chest pain Respiratory/Chest Respiratory/Chest: Denies cough or dyspnea Gastrointestinal Gastrointestinal: Reports diarrhea and nausea; Denies abdominal pain or melena Musculoskeletal Musculoskeletal: Reports arthralgias, myalgias and neck pain Integumentary Denies rash Neurologic Neurologic: Reports headache(s) and weakness Psychiatric Psychiatric: Reports anxiety Hematologic/Lymphatic Hematologic/Lymphatic: Denies easy bleeding or easy bruising EXAM Physical Exam Const Vital Signs: 01/04/25 10:08 01/04/25 10:09 01/04/25 10:12 Temperature 98.2 F 98 F Temperature Source Temporal Temporal Pulse Rate 79 64 Respiratory Rate 20 H 13 Respiratory Pattern Tachypnea Blood Pressure 100/58 L 100/53 L Blood Pressure Mean 72 68 Pulse Ox 100 100 Oxygen Delivery Method Room Air 01/04/25 12:08 01/04/25 14:00 Temperature Temperature Source Pulse Rate 77 77 Respiratory Rate 18 18 Respiratory Pattern Blood Pressure 100/66 100/60 Blood Pressure Mean 77 73 Pulse Ox 96 97 Oxygen Delivery Method Positive well nourished and well developed General Appearance ED: well developed and NAD HEENT Reports dry mucous membranes Mouth ED: Yes dry mucous membranes Mouth: dry mucous membranes Eyes PERRL General Eye ED: Negative for scleral icterus Neck no lymphadenopathy and supple Neck Narrative: Normal range of motion of the neck. No midline tenderness. Patient points to the base of her cervical spine in the paraspinal region as the area of pain. Has spasm over the bilateral sternocleidomastoid (right worse than left) with associated tenderness. No crepitus appreciated. No pulsatile mass appreciated. General: tenderness Chest Wall inspection of chest normal Resp normal respiratory effort and clear to auscultation bilaterally Cardio regular rate and regular rhythm GI normal to inspection, nondistended, normoactive bowel sounds, non-tender and non-distended Extremity normal to inspection General Extremety ED: Negative for edema General Extremity: Negative for edema Neuro oriented x3 Neuro Narrative: Equal almond grinder strength bilaterally. Normal strength of the upper and lower extremities. Mild difficulty with raising the left leg but attributes that to her bad hip. Sensorium / Orientation: alert Motor Exam: general weakness Psych mental status grossly normal Mood & Affect: anxious Skin no rashes or lesions noted and no wounds General Skin Exam: Negative for jaundice MDM MDM MDM Narrative Medical decision making narrative: Patient is evaluated for worsening neck pain as well as nausea and diarrhea. She states she could not walk yesterday and her legs would not work because she was so weak. She also reports paresthesiasto her arms and around her mouth that occurred this morning. That is since resolved. She does not have any focal weakness on exam. No focal neurologic deficits appreciated. I suspect she had a component of electrolyte abnormality/carpopedal spasm from her story. Did obtain blood work given the report of nausea, diarrhea and paresthesias. Patient is a leukopenia with a left shift. BMP shows findings of dehydration with a bicarb of 19.2. Furthermore I suspect she is hemoconcentrated as her hemoglobin is above her baseline today. She has an acute transaminitis with an AST of 910, ALT of 889 and alkaline phosphatase of 269. Of note patient had normal liver enzymes a month ago. Her bilirubin is normal as well as sufficient for acute obstructive process. CPK obtained which is normal. Tylenol level added on however patient states she only had 2 dose of Tylenol yesterday within the last week. This is negative. Acute hepatitis panel is ordered. Patient's lactate is elevated at 2.2 by spec this is more from dehydration and notsepsis/acute infection. After 2 L fluid bolus her lactate is gone down to 1.2. Patient is given multiple medications for her headache and neck pain. Her headache sounds to be like a tension headache. Reports a history of this. No focal neurologic deficits, vision changes or injury reported so I do not think she requires a CT of the brain. Does not report a thunderclap headache. Her neck pain seems to be a mixture of muscle spasm of the sternocleidomastoid as well as possibly cervical neuralgia. Patient is given multiple medications for her symptoms in the ER including Toradol, Zofran, Reglan, lorazepam, droperidol, dexamethasone and Flexeril and continues to have pain in her neck and generalized malaise. She states she does not feel comfortable going home asshe lives home alone and does not have a lot of support and she just feels terrible. Case discussed with hospitalist for admission, Dr. Gonzáles. I also discussed the case with GI given her transaminitis, Dr. Spencer. He feels that likely this is either viral or possibly ischemic associated with her low blood pressure as she reported at home. He states management is generally supportive at this time and no further acute recommendations. Stool studies are ordered for patient's diarrhea. Does report a history of intermittent diarrhea but attributes that to her extreme pancreatic insufficiency. Lab Data Attestation: I reviewed the patient's lab results. Labs: Laboratory Results - last 24 hr 01/04/25 01/04/25 01/04/25 10:35 12:14 14:00 WBC 3.2 L RBC 4.95 Hgb 15.1 H Hct 45.0 MCV 90.9 MCH 30.5 MCHC 33.6 RDW Std Deviation 46.0 H RDW Coeff of Nellie 13.7 Plt Count 184 MPV 11.0 Immature Gran % (Auto) 1.000 H Neut % (Auto) 80.6 H Lymph % (Auto) 6.7 L [place] % (Auto) 11.1 H Eos % (Auto) 0.0 Baso % (Auto) 0.6 Absolute Neuts (auto) 2.5 Absolute Lymphs (auto) 0.21 L Nucleated RBC % 0 Differential Comment COMMENT Sodium 135 Potassium 3.7 Chloride 104 Carbon Dioxide 19.2 L Anion Gap 12 BUN 26 H Creatinine 0.90 Estim Creat Clear Calc 49.35 L Est GFR (MDRD) Non-Af 67 BUN/Creatinine Ratio 29.0 H Glucose 93 Lactic Acid 2.2 H* Calcium 8.2 Total Bilirubin 0.55 Direct Bilirubin 0.23 AST 910 H ALT 889 H Alkaline Phosphatase 269 H Total Creatine Kinase 68 65 Total Protein 6.7 Albumin 4.0 Globulin 2.7 Lipase 15 Urine Color Urine Clarity Urine pH Ur Specific [place] Urine Protein Urine Glucose (UA) Urine Ketones Urine Occult Blood Urine Nitrite Urine Bilirubin Urine Urobilinogen Ur Leukocyte Esterase Urine RBC Urine WBC Ur Squamous Epith Cells Urine Bacteria Urine Mucus Salicylates < 0.5 L 01/04/25 01/04/25 14:50 15:37 WBC RBC Hgb Hct MCV MCH MCHC RDW Std Deviation RDW Coeff of Nellie Plt Count MPV Immature Gran % (Auto) Neut % (Auto) Lymph % (Auto) [place] % (Auto) Eos % (Auto) Baso % (Auto) Absolute Neuts (auto) Absolute Lymphs (auto) Nucleated RBC % Differential Comment Sodium Potassium Chloride Carbon Dioxide Anion Gap BUN Creatinine Estim Creat Clear Calc Est GFR (MDRD) Non-Af BUN/Creatinine Ratio Glucose Lactic Acid 1.2 Calcium Total Bilirubin Direct Bilirubin AST ALT Alkaline Phosphatase Total Creatine Kinase Total Protein Albumin Globulin Lipase Urine Color Yellow Urine Clarity Sl. Cloudy Urine pH 5.0 Ur Specific [place] 1.025 Urine Protein 30 H Urine Glucose (UA) Normal Urine Ketones 15 H Urine Occult Blood Negative Urine Nitrite Negative Urine Bilirubin 1 H Urine Urobilinogen 1 H Ur Leukocyte Esterase Negative Urine RBC 0 SEEN Urine WBC 0 SEEN Ur Squamous Epith Cells 0 SEEN Urine Bacteria 2+ Urine Mucus RARE Salicylates Radiography Diagnostic Testing: Clinical Impression(s) from Imaging Studies Liver Ultrasound 01/04/25 12:02 IMPRESSION: Fatty infiltration of the liver. Status post cholecystectomy. Nonobstructive 9 mm x 6 mm right intrarenal calculus. Reading Location: [facility] Rhythm Strip Rhythm Strip: Sinus Rhythm Rate: 62 Ectopy: None EKG Initial EKG: Attestation: I personally reviewed and interpreted this EKG as follows: Interpretation: Sinus Rhythm Comments: Normal sinus rhythm at a rate of 62 bpm Normal axis Normal intervals Normal ST segments No significant change greater prior EKG on 09/17/2021 Management Discussion w/another healthcare provider: Hospitalist and Prosthetic Lab Technician Discharge Plan Triage Chief Complaint: General Illness ED Provider: Radha Elias Dx/Rx/DC Orders Clinical Impression: Elevated liver enzymes, Degenerative cervical disc, Dehydration Primary Care Provider: Katalina Velazquez Disposition Disposition: Acute Care Hospital [facility] What to do if you have Problems For any increased pain, shortness of breath, bleeding, nausea or vomiting, chestpain, or any unexpected problems, contact your Primary Care Provider. Call [facility] ([phone]) or report tothe closest Emergency Room. Call 911 if necessary. 01/04/25 1736 Cosigner Signature (if applicable): CC: Dr. Katalina Velazquez MD ~ Signed [facility]04-24-2025 History and physical note [facility] Medical Records Department [address] [place] [address] H&P Exam - Hospitalist 01/04/25 1607 MR#: [id number] Acct: [id number] Name: ZEE RAMIREZ Rep #:[id number] : 1950 74 From: Makenzie Gonzáles MD PCP: Dr. Katalina Velazquez MD Status:R EG ER Location: ED HPI - General General Date of Admission: 01/04/25 Date of Service: 01/04/25 Chief Complaint: Neck pain, diarrhea, generalized weakness HPI Narrative ZEE RAMIREZ, is a 74-year-old female history of degenerative disc disease, fibromyalgia, pancreatic insufficiency, anxiety and depression who presented [facility] ED 01/04/2025 for diarrhea, generalized weakness, and numbness and tingling of her hands and around her face as well as increased neckpain and headache. She has had diarrhea all day yesterday and feels so weak that shecannot walk. Has also had some nausea but no vomiting. Also has worsening of her chronic back and neck pain. Having posterior headache as well as arm heaviness. Patient does follow with Dr. Coyle for pain management, Dr. Smith for orthospine, and Dr. Spencer for GI. In the ED patient afebrile with a blood pressure 100/58, 100% on room air with respiratory rate of 20 and heart rate of 79. CBC demonstrated a white blood cell count of 3.2, hemoglobin 15.1 and BMP with a creatinine of 0.90 and BUN of 26, slightly up from baseline but not significantly so. Lactic acid also 2.2. Liver panel revealed new elevations in liver function with an AST of 910, ALT 889, and alk phos of 269. Hepatitis panelordered and is pending, salicylate negative, liver ultrasound only demonstrated fatty infiltration of the liver and previous cholecystectomy. Given pts new and significant liver function elevations hospitalist contacted for admission. Patient evaluated at bedside reports that she is here because she is concerned about the neck pain that starts in her neck and goes up her head and started as a zapand out intermittently will have some pulsing pain, reports she feels like her arms and lower face have some numbness though it is better than when she came in, reports that yesterday she had increase in her chronic lower back pain with numbness in her feet but this is back to baseline, the diarrhea started yesterday and she has had many episodes, had 1 earlier whenshe arrived but has not in the past couple of hours, little bit of generalized abdominal pain. When asked if she has any lightheadedness she reports she feelsoff balance. Denies any fevers, no change in urination. [facility] Medical History (Updated 01/04/25 @ 16:[address] Makenzie Gonzáles MD) Acute conjunctivitis, unspecified Acute kidney injury Allergic conjunctivitis Allergic rhinosinusitis Allergies Anxiety Anxiety and depression Arthritis At high risk for cardiovascular disease Atypical chest pain Blister of gingiva with infection Breast lump Calcification of abdominal aorta Chronic back pain Chronic neck pain Coronary artery calcification Coronary artery disease De Quervain's tenosynovitis Degenerative cervical disc Degenerative disc disease Depression Depressive disorder Diverticulitis EIC (epidermal inclusion cyst) Elevated liver enzymes Epigastric pain Fibromyalgia Fibromyoma Flu vaccine need Former smoker H/O emotional problems History of back problems Hx of cataract Hx of headache Hydronephrosis Hypocalcemia Hypokalemia IBS (irritable bowel syndrome) Left knee pain Localized swelling, mass and lump, neck Lumbar back pain Mass of urinary bladder Normocytic anemia Osteoarthritis Osteoporosis Panic disorder Positive P-ANCA titer Retroperitoneal lymphadenopathy Right knee pain Screening for cardiovascular condition Submandibular lymphadenopathy 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 Umbilical hernia Urinary tract infection with hematuria Varicose veins of bilateral lower extremities with pain Home Medications ?Medication ?Instructions ?Recorded ?Last Taken ?Type calcium carbonate 1,200 mg PO DAILY 07/07/19 0 01/04/25 History Lactobacillus acidophilus and 1 ea PO DAILY 09/09/19 0 01/04/25 History rhamnosus 15 billion cell capsule vitamins A,C,C-maau-iqbuuh 4,296 1 cap PO BID 12/19/21 01/04/25 History mcg-226 mg-90 mg capsule (PreserVision AREDS) dicyclomine 20 mg tablet 20 mg PO BID PRN abdominal p ain 7 07/25/23 Unknown Rx days #14 tabs cholecalciferol (vitamin D3) 25 25 mcg PO DAILY 01/04/25 History mcg (1,000 unit) capsule comp.stocking,thigh,long,small #2 ea 12/16/23 Unknown Rx hydroxyzine HCl 25 mg tablet 25 mg PO BID PRN anxiety #60 tabs 06/12/24 Unknown Rx gabapentin 100 mg capsule 100 mg PO TID PRN NERVE PAIN 07/13/24 Unknown History denosumab 60 mg/mL subcutaneous 60 mg subcut [id number] #1 mL 07/28/24 08/14/24 Rx syringe bupropion HCl 150 mg 24 hr tablet, 150 mg PO DAILY #90 tabs 10/04/24 01/04/25 Rx extended release jyqxyq-lvqmvbln-wdlalpr 1 cap PO TID #320 caps 10/2501/04/25 Rx 36,000-114,000-180,000 unit capsule,delay rel (Creon) cholestyramine (with sugar) 4 gram 4 g PO QHS PRN diar bro 01/04/25 Unknown History powder for susp in a packet cyclosporine 0.05 % eye drops in a 1 drp ophthalmic (e ye) Q12H 01/04/25 01/04/25 History dropperette (Restasis) duloxetine 30 mg capsule,delayed 30 mg PO DAILY 01/04/25 History release duloxetine 30 mg capsule,delayed 30 mg PO QHS 01/04/25 01/03/25 History release (Cymbalta) vitamin E 268 mg (400 unit) capsule 268 mg PO DAILY 01/04/25 History Allergy/AdvReac Type Severity Reaction Status Date / Time codeine Allergy Rash Verified 01/04/25 10:09 ibandronate sodium (From AdvReac EXTREME Verified 01/04/25 10:09 Boniva) GERD plasic tape Allergy Mild Rash Uncoded 12/08/24 08:46 Family History Father Arthritis Grandmother Diabetes Grandfather Myocardial infarction Mother Myocardial infarction CVA (cerebral vascular accident) Other Fibromyalgia IBS (irritable bowel syndrome) Surgical History (Updated 01/04/25 @ 15:05 by Charo Boykin) Cataract extraction status H/O: hysterectomy History of cholecystectomy History of cholecystectomy History of repair of hiatal hernia Hx of colonoscopy Social History Smoking Status: Former smoker alcohol intake: never substance use type: does not use what type of physical activity do you participate in: none ROS ROS Narrative General: Denies fever/chills HENT: Posterior neck and headache, denies sore throat EYES: Denies changes in vision Resp: Denies cough, denies shortness of breath Cardiac: Denies chest pain GI: Little bit of nausea, little bit of general abdominal pain, 1 and half days of diarrhea : Denies changes in urination Extremity: Denies swelling MSK: Garland arms were heavy Neuro: [place] some numbness and tingling in hands and around mouth Heme: Denies any bleeding or bruising Skin: Denies rashes Psychiatric: No complaints voiced Vital Signs Vital Signs Vital Signs: 01/04/25 10:08 01/04/25 10:09 01/04/25 10:12 Temperature 98.2 F 98 F Temperature Source Temporal Temporal Pulse Rate 79 64 Respiratory Rate 20 H 13 Respiratory Pattern Tachypnea Blood Pressure 100/58 L 100/53 L Blood Pressure Mean 72 68 Pulse Ox 100 100 Oxygen Delivery Method Room Air 01/04/25 12:08 01/04/25 14:00 Temperature Temperature Source Pulse Rate 77 77 Respiratory Rate 18 18 Respiratory Pattern Blood Pressure 100/66 100/60 Blood Pressure Mean 77 73 Pulse Ox 96 97 Oxygen Delivery Method Weight Weight: 67.6 kg Body Mass Index (BMI) 24.7 Physical Exam Narrative General: Alert, oriented, no apparent distress HEENT: Atraumatic, normocephalic Eyes: Anicteric, normal conjunctiva, extraocular movements grossly intact Neck: Supple Respiratory: Clear to auscultation bilaterally, normal respiratory effort Cardiovascular: Regular rate and rhythm GI: Soft, nontender, nondistended, no rebound, guarding, rigidity Extremities: No edema Musculoskeletal: Moving all extremities 5 out of 5 strength, no pain on palpation of neck Neuro: No overt focal neurological deficits Skin: No rashes appreciated Psych: Cooperative Results Lab / Micro Data 01/04/25 10:35 01/04/25 10:35 Labs: Laboratory Results - last 24 hr 01/04/25 10:35: WBC 3.2 L, RBC 4.95, Hgb 15.1 H, Hct 45.0, MCV 90.9, MCH 30.5, MCHC 33.6, RDW Std Deviation 46.0 H, RDW Coeff of Nellie 13.7, Plt Count 184, MPV 11.0, Immature Gran % (Auto) 1.000 H, Neut % (Auto) 80.6 H, Lymph % (Auto) 6.7 L, [place] % (Auto) 11.1 H, Eos % (Auto) 0.0, Baso % (Auto) 0.6, Absolute Neuts (auto) 2.5, Absolute Lymphs (auto) 0.21 L, Nucleated RBC % 0, Differential Comment COMMENT, Sodium 135, Potassium 3.7, Chloride 104, Carbon Dioxide 19.2 L,Anion Gap 12, BUN 26 H, Creatinine 0.90, Estim Creat Clear Calc 49.35 L, Est GFR(MDRD) Non-Af 67, BUN/Creatinine Ratio 29.0 H, Glucose 93, Lactic Acid 2.2 H*, Calcium 8.2, Total Bilirubin 0.55, Direct Bilirubin 0.23, AST 910 H, ALT 889 H, Alkaline Phosphatase 269 H, Total Creatine Kinase 68, Total Protein 6.7, Albumin4.0, Globulin 2.7, Lipase 15 01/04/25 12:14: Salicylates < 0.5 L 01/04/25 14:00: Total Creatine Kinase 65 01/04/25 14:50: Urine Color Yellow, Urine Clarity Sl. Cloudy, Urine pH 5.0, Ur Specific [place] 1.025, Urine Protein 30 H, Urine Glucose (UA) Normal, Urine Ketones 15 H, Urine Occult Blood Negative, Urine Nitrite Negative, Urine Bilirubin 1 H, Urine Urobilinogen 1 H, Ur Leukocyte Esterase Negative Imaging Radiology Impression Liver Ultrasound 01/04/25 12:02 IMPRESSION: Fatty infiltration of the liver. Status post cholecystectomy. Nonobstructive 9 mm x 6 mm right intrarenal calculus. [facility] Assessment & Plan Assessment/Plan (1) Elevated liver enzymes: PLAN: Plan #Elevated liver function tests -Liver US w/ fatty infiltration -Hepatitis panel pending - Salicylate negative - Will check acetaminophen level -Patient reports she took 2 Tylenol arthritis today into yesterday but denies taking any additionalTylenol or any new medications or supplements -Will check PT/INR - ED physician discussed with GI in the ED and it was recommended patient be discharged home if stable with outpatient follow-up, patient was generally weak which is why she required admission, if liver function improves tomorrow may be able to follow closely with GI outpatient however if worsens will likely need inpatient GI consult - Trend CMP - Avoid hepatotoxic agents # Nausea/diarrhea/generalized weakness -IV fluids -Will check enteric panel and C. difficile -Patient leukopenic and also has generalized weakness with GI symptoms and diarrhea as well check respiratory panels -Given her reports of feeling so generally weak she can barely walk and does notfeel comfortable going home will also have PT/OT evaluate - Will check TSH # Neck pain -Patient has neck pain that seems to radiate up her head and will intermittentlypulse -Neurologically patient has 5 out of 5 strength, initially poor effort however when encouraged multiple times is able to use full-strength -No pain on palpation of neck - Lidocaine patch - Avoiding acetaminophen given elevated liver enzymes - Ibuprofen, Zanaflex - Patient did receive Decadron in the ED # History of pancreatic insufficiency - Continue home Creon #Depression/anxiety -Continue home medications # Fibromyalgia/degenerative disc disease/chronic pain - Continue patient's home medications #DVT ppx: SCDs Makenzie Gonzáles MD Charges/Coding Visit Charges Inpatient E&M: 66871 Init Hosp L2 01/04/25 1627 Cosigner Signature (if applicable): CC: Dr. Katalina Velazquez MD; Dr. Makenzie Gonzáles MD~ Signed [facility]04-24-2025 Radiology Diagnostic study note [facility] Imaging Services [address] [place], [place] [address] Liver MR#: [id number] Acct: [id number] Name: ZEE RAMIREZ Rep #: [id number] : 1950 F 74 From: Raheem Falcon MD PCP: Dr. Katalina Velazquez MD Status: R EG ER Study:Liver Date of Exam: 01/04/25 Exam# [id number] Ordering Dr: Nathan Elias DO PROCEDURE: LIVER 01/04/2025 REASON FOR EXAM: ACUTE TRANSAMINITIS COMPARISON: None FINDINGS: Liver: Diffusely echogenic suggesting fatty infiltration. Gallbladder: Surgically absent. Common bile duct: Normal measuring 5.5 mm . Pancreas: Normal Other: Visualized portions of the right kidney are unremarkable. Findings suggestive of a 9 mm x 6 mm x 5 mm nonobstructive intrarenal calculus. No right upper quadrant ascites. US/Liver IMPRESSION: Fatty infiltration of the liver. Status post cholecystectomy. Nonobstructive 9 mm x 6 mm right intrarenal calculus. Reading Location: [facility] CC: Dr. Radha Elias DO; Dr. 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: Signed [facility]04-17-2025 Radiology Diagnostic study note [facility] Imaging Services [address] [place], [place] [id number] CTA Neck W/WO Contrast MR#: [id number] Acct: [id number] Name: ZEE RAMIREZ Rep #: [id number] : 1950 F 74 From: Gaye Laird MD PCP: Dr. Katalina Velazquez MD Status: R EG CLI Study:CTA Neck W/WO Contrast Date of Exam: 12/28/24 Exam# [id number] Ordering Dr: Kal Montague PROCEDURE: CTA NECK W/WO CONTRAST 12/28/2024 REASON FOR EXAM: NECK MASS, difficulty swallowing, excessive coughing, slight carotid stenosis TECHNIQUE: CTA NECK WITH IV CONTRAST: Coronal and Sagittal reconstruction series were provided. 3D, 3D post processing, 3D reconstructions, Maximum intensity projection (MIPs) Volume rendering and Shaded surface rendering was provided. CONTRAST: Isovue 370 VOLUME: 100 mL IV One or more dose reduction techniques were used (e.g., Automated exposure control, adjustment of the mA and/or kV according to patient size, use of iterative reconstruction technique). RADIATION DOSE SUMMARY: DLP: 354.4 mGycm COMPARISON: None FINDINGS: No neck masses identified. No mass effect on the partially visualized aerodigestive tract. AORTIC ARCH: Branch vessels are widely patent. Left vertebral artery origin from the aortic arch. EXTRACRANIAL CAROTIDS: Widely patent. No significant RIGHT ICA stenosis Small calcifications without significant LEFT ICA stenosis NONVASCULAR:Bilateral ocular lens extractions. The parotid and submandibular glands appear within normal limits. No cervical lymphadenopathy. The thyroid appears within normal limits. CT/CTA Neck W/WO Contrast IMPRESSION: No neck mass identified. No carotid or vertebral stenosis or dissection. Reading Location: [facility] CC: BRIANNE Thornton; Dr. 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: Signed [facility]04-07-2025 Radiology Diagnostic study note [facility] Imaging Services [address] [place] [address] Thyroid MR#: [id number] Acct: [id number] Name: ZEE RAMIREZ Rep #: [id number] : 1950 F 74 From: Cherelle Garcia MD PCP: Dr. Katalina Velazquez MD Status: R EG CLI Study:Thyroid Date of Exam: 12/18/24 Exam# [id number] Ordering Dr: Kal Montague PROCEDURE: THYROID (USTHY), 12/18/2024 REASON FOR EXAM: THYROID NODULE TECHNIQUE: Grayscale and color Doppler imaging of the thyroid was performed. COMPARISON: No prior dedicated thyroid ultrasound. FINDINGS: Right lobe measures 3.5 x 1.3 x 1.4cm. Essentially homogeneous background echotexture. No abnormal vascularity. Nodules as below: *5 x 4 x 4 mm, mixed cystic and solid, hypoechoic solid components, TI-RADS 3. *7 x 6 x 4 mm, solid, essentially isoechoic, TI-RADS 3. Left lobe measures 3.5 x 1.3 x 1.1 cm. Essentially homogeneous background echotexture. No abnormal vascularity. Nodules as below: *5 x 5 x 3 mm, solid, hypoechoic, TI-RADS 4. Isthmus measures 3 mm in thickness. US/Thyroid IMPRESSION: 1. Assessment is TI-RADS 4. No nodules currently meet criteria for FNA or follow-up. 2. Atrophic but essentially homogeneous gland without abnormal vascularity. Management recommendations for TI-RADS 4 findings: FNA if = 1.5 cm; Follow if = 1 cm at 1, 2, 3, and 5 years. Recommendations per ACR Thyroid Imaging, Reporting and Data System (TI-RADS): White Paper of the ACR TI-RADS Committee, 2017 ([email or web address]) Reading Location: [id number] CC: BRIANNE Thornton; Dr. 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 2024 10:08am Elevated liver enzymes acute Ne y 2024 10:08am Health care maintenance acute [facility] 2024 10:08am Localized swelling, mass and lump, neck acute January 29, 2025 10:08am Anxiety and depression chronic Ma y 2024 10:08am GERD (gastroesophageal reflu x disease) chronic January 29, 2025 10:08am Osteoporosis chronic February 13 11:16am [facility] Work Phone: 1(509) 838-908603-17-2025 Radiology Diagnostic study note [facility] Imaging Services [address] [place], [place] [address] Head/Neck Soft Tissue MR#: [id number] Acct: [id number] Name: ZEE RAMIREZ Rep #: [id number] : 1950 F 74 From: Cherelle Garcia MD PCP: Dr. Katalina Velazquez MD Status: R EG CLI Study:Head/Neck Soft Tissue Date of Exam: 11/27/24 Exam# [id number] Ordering Dr: Kay Velazquez MD PROCEDURE: HEAD/NECK SOFT TISSUE REASON FOR EXAM: ANTERIOR NECK SWELLING COMPARISON: None. TECHNIQUE: Targeted grayscale and color Doppler ultrasound of the region of clinical concern/palpable abnormality along the mid anterior midline neck was performed. FINDINGS: Palpable abnormality appears to correspond to a prominent vessel. No other focal sonographic abnormality in the area of clinical concern. Incidental note is made of small thyroid nodules, largest visualized nodule in the left measures 5 mm and is hypoechoic. These do not appear to correspond to the area of clinical concern/palpable abnormality. US/Head/Neck Soft Tissue IMPRESSION: 1. Palpable abnormality/region of clinical concern appears to correspond to a prominent vessel. 2. Incidental note of small thyroid nodules, incompletely evaluated. Consider dedicated thyroid ultrasound. Reading Location: [id number] CC: Dr. 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: Signed [facility]03-03-2025 Evaluation note* Diagnosis Onset Date Resolution Status Admit Date At high risk for cardiovascu lar disease acute November 13, 2024 10:01am Localized swelling, mass and lump, neck acute March 3rd, 2025 10:01am Anxiety and depression chronic Ma rch 2024 10:01am GERD (gastroesophageal reflu x disease) chronic November 13, 2024 10:01am Osteoporosis chronic November 13, 2 025 10:01am Localized swelling, mass and lump, neck acute December 08, 2024 8:25am Thyroid nodule acute November 8:25am Elevated liver enzymes acute Ap ril 2024 4:08pm Degenerative disc disease at L5-S1 level acute January 19, 2025 9: 48am Spondylolisthesis at L5-S1 level non eactive January 19, 2025 9:48am [facility] Work Phone: 1(301) 293-582203-03-2025 Evaluation note* Diagnosis Onset Date Resolution Status Admit Date At high risk for cardiovascu lar disease acute November 13, 2024 10:01am Localized swelling, mass and lump, neck acute November 13, 2024 10:01am Anxiety and depression chronic [facility] 2024 10:01am GERD (gastroesophageal reflu x disease) chronic November 13, 2024 10:01am Osteoporosis chronic November 13, 025 10:01am Localized swelling, mass and lump, neck acute December 08, 2024 8:25am Thyroid nodule acute November 8:25am Elevated liver enzymes acute Ap ril 2024 4:08pm Degenerative disc disease at L5-S1 level acute January 19, 2025 9: 48am Spondylolisthesis at L5-S1 level non eactive January 19, 2025 9:48am Coronary artery disease acute [facility] 2024 10:08am Elevated liver enzymes acute Ne y 2024 10:08am Health care maintenance acute [facility] 2024 10:08am Localized swelling, mass and lump, neck acute January 29, 2025 10:08am Anxiety and depression chronic Ne y 2024 10:08am GERD (gastroesophageal reflu x disease) chronic January 29, 2025 10:08am [facility] Work Phone: 1(383) 264-112101-07-2025 Evaluation note* Diagnosis Onset Date Resolution Status Admit Date Blister of gingiva with infection acute September 19 12:42pm At high risk for cardiovascu lar disease acute November 13, 2024 10:01am Localized swelling, mass and lump, neck acute November 13, 2024 10:01am Anxiety and depression chronic [facility] 2024 10:01am GERD (gastroesophageal reflu x disease) chronic November 13, 2024 10:01am Osteoporosis chronic November 13, 2 025 10:01am Localized swelling, mass and lump, neck acute December 08, 2024 8:25am Thyroid nodule acute November 8:25am Elevated liver enzymes acute 2024 4:08pm [facility] Work Phone: 1(550) 455-386412-20-2024 Evaluation note* Diagnosis Onset Date Resolution Status Admit Date Other cervical disc degeneration, mid-cervical region, unspecified level acute Decemb er 2023 8:21am Spondylolisthesis of cervica l region acute September 01 8:21am Blister of gingiva with infection acute September 19 12:42pm At high risk for cardiovascu lar disease acute November 13, 2024 10:01am Localized swelling, mass and lump, neck acute November 13, 2024 10:01am Anxiety and depression chronic [facility] 2024 10:01am GERD (gastroesophageal reflu x disease) chronic November 13, 2024 10:01am Osteoporosis chronic November 13 10:01am Localized swelling, mass and lump, neck acute December 08, 2024 8:25am Thyroid nodule acute November 8:25am [facility] Work Phone: 1(198) 399-279912-02-2024 Evaluation note* Diagnosis Onset Date Resolution Status Admit Date Screening for cardiovascular condition acute August 14 1:37pm Submandibular lymphadenopathy acute August 14, 2024 1:37pm Anxiety and depression chronic De cember 2023 1:37pm GERD (gastroesophageal reflu x disease) chronic August 14 1:37pm Osteoporosis chronic August 10:00am Other cervical disc degeneration, mid-cervical region, unspecified level acute Decemb er 2023 8:21am Spondylolisthesis of cervica l region acute September 01, 024 8:21am Blister of gingiva with infection acute September 19 12:42pm At high risk for cardiovascu lar disease acute November 13, 2024 10:01am Localized swelling, mass and lump, neck acute November 13, 2024 10:01am Anxiety and depression chronic [facility] 2024 10:01am GERD (gastroesophageal reflu x disease) chronic November 13, 2024 10:01am Osteoporosis chronic November 13, 025 10:01am [facility] Work Phone: 1(650) 479-425112-02-2024 Evaluation note* Diagnosis Onset Date Resolution Status Admit Date Screening for cardiovascular condition acute August 14 1:37pm Submandibular lymphadenopathy acute August 14, 2024 1:37pm Anxiety and depression chronic De 2023 1:37pm GERD (gastroesophageal reflu x disease) chronic August 14 1:37pm Osteoporosis chronic August 10:00am Other cervical disc degeneration, mid-cervical region, unspecified level acute [facility] 2023 8:21am Spondylolisthesis of cervica l region acute September 01, 024 8:21am Blister of gingiva with infection acute September 19 12:42pm At high risk for cardiovascu lar disease acute November 13, 2024 10:01am Localized swelling, mass and lump, neck acute November 13, 2024 10:01am Anxiety and depression chronic [facility] 2024 10:01am GERD (gastroesophageal reflu x disease) chronic November 13, 2024 10:01am Osteoporosis chronic November 13, 025 10:01am Localized swelling, mass and lump, neck acute December 08, 2024 8:25am Thyroid nodule acute November 8:25am [facility] Work Phone: 1(276) 154-417703-10-2022 Note. MICRO - Microbiology PROCEDURE: Urine Culture [*1] [...] Locations *1: This test was performed at: [facility], [address] [place] [address], [address] , [facility] ([place])Discharge summary Author Parveen Mosqueda [facility] Note Date/Time January 05, 2025 3:0 9pm [facility] Medical Records Department [address] [place] [address] Instructions for Home/Discharge Instructions 01/05/25 1459 MR#: [id number] Acct: [id number] Name: ZEE RAMIREZ Rep #:[id number] : 1950 74 From: Parveen Mosqueda DO PCP: Dr. Katalina Velazquez MD Status:A DM IN Discharge Instructions Diet Discharge Diet: No restrictions (Resume previous diet) DC O2, CPAP, BIPAP needs Home O2 Discharge instructions: No Dressing / Incision Discharge Activity: Return to Normal Activity Weight Bearing Status: Full weight bearing Follow Up Care Test Results: Test results from this visit will be discussed in further detail at your follow- up appointment, if applicable. Discharge Plan Admission Admit Date/Time: 01/04/25 16:08 Primary Reason for Your Visit: Hypovolemic shock, shock liver Attending Provider: Parveen Mosqueda Primary Care Provider: Katalina Velazquez Consulting Providers: Makenzie Gonzáles Instructions Additional Instructions / Restrictions: Get your liver profile rechecked on Wednesday01/08/25 Discharge Orders/Prescriptions Prescriptions: Continued PreserVision AREDS [id number] capsule 1 cap PO BID cholecalciferol (vitamin D3) 25 mcg (1,000 unit) capsule 25 mcg PO DAILY denosumab 60 mg/mL syringe 60 mg subcut [id number] Qty: 1 1RF hydroxyzine HCl 25 mg tablet 25 mg PO BID PRN (Reason: anxiety) Qty: 60 1RF gabapentin 100 mg capsule 100 mg PO TID PRN (Reason: NERVE PAIN) calcium carbonate 600 MG tablet 1,200 mg PO DAILY L. acidophilus-L. rhamnosus 1 EACH capsule 1 ea PO DAILY dicyclomine 20 mg tablet 20 mg PO BID PRN (Reason: abdominal pain) 7 Days Qty: 14 0RF duloxetine [Cymbalta] 30 mg capsule,delayed release(DR/EC) 60 mg PO QHS Rx Instructions: TAKE 1 CAP IN AM, 2 CAPS QHS cyclosporine [Restasis] 0.05 % dropperette 1 drp ophthalmic (eye) Q12H cholestyramine (with sugar) 4 gram powder in packet 4 g PO QHS PRN (Reason: diarrhea) duloxetine 30 mg capsule,delayed release(DR/EC) 30 mg PO DAILY Rx Instructions: TAKE 1 CAP IN AM, 2 CAPS QHS vitamin E 268 mg (400 unit) capsule 268 mg PO DAILY bupropion HCl 150 mg tablet extended release 24 hr 150 mg PO DAILY Qty: 90 1RF Creon 36,000-114,000- 180,000 unit capsule,delayed release(DR/EC) 1 cap PO TID Qty: 320 11RF Rx Instructions: administer with meals and/or snacks Referrals / Follow Up: Katalina Velazquez MD [Primary Care Provider] - See Referral Note (At next officevisit) Disposition Disposition (needs filled in before D/C Order can be placed): Home, Self Care 01/05/25 1509<Electronically signed by Parveen Mosqueda DO>Parveen Mosqueda DO CC: Dr. Katalina Velazquez MD; Dr. Makenzie Gonzáles MD ~ Signed [facility] Work Phone: Discharge summary Author Dain Waller [facility] Note Date/Time May 12, 2025 9: 00am [facility] Medical Records Department [address] [place] [address] Emergency Department Summary 05/12/25 MR#: [id number] Acct: [id number] Name: ZEE RAMIREZ Rep #:[id number] : 1950 74 From: Dain Waller MD PCP: Dr. Katalina Velazquez MD Status:R EG ER Location: ED HPI History of Present Illness Chief Complaint: Dental Informant: patient Onset/Context/Timing Onset: Days Context: Gradual Onset Timing: Continuous Current Severity: Moderate Maximum Severity: Moderate Relieved by: NSAIDs Associated Symptoms Assocated Symptom - Dental: Negative for fever, face swelling, cold sensitivity or hot sensitivity Narrative Narrative: 74-year-old female history of fibromyalgia and TMJ. Complaining of right lower and upper dental pain. Denies any fall injury or trauma. She thinks she has mild swelling. She called her dentist she cannot get into see them till Wednesday. But they did call her in a penicillin antibiotic. Patient states she has been using ibuprofen and Tylenol without relief. She has gabapentin at homethat is not helping with the pain. Prior similar symptoms: Yes Recent Illness/Hospitalization: No PFSH PFSH Medical History Encounter for screening for malignant neoplasm of lung Health care maintenance Elevated liver enzymes Degenerative disc disease Fibromyoma Depression Former smoker Coronary artery disease At high risk for cardiovascular disease Localized swelling, mass and lump, neck Blister of gingiva with infection Submandibular lymphadenopathy Screening for cardiovascular condition Degenerative cervical disc Flu vaccine need Ulnar neuropathy of right upper extremity Chronic neck pain Allergic rhinosinusitis Allergic conjunctivitis Acute conjunctivitis, unspecified Varicose veins of bilateral lower extremities with pain Chronic back pain Anxiety and depression Hx of headache H/O emotional problems Hx of cataract History of back problems Allergies Urinary tract infection with hematuria Positive P-ANCA titer Osteoarthritis Breast lump Arthritis Left knee pain Hypokalemia Hypocalcemia De Quervain's tenosynovitis Anxiety Acute kidney injury TMJ arthralgia Right knee pain Mass of urinary bladder EIC (epidermal inclusion cyst) Depressive disorder Coronary artery calcification Calcification of abdominal aorta Atypical chest pain Epigastric pain Umbilical hernia Retroperitoneal lymphadenopathy Panic disorder Normocytic anemia Lumbar back pain IBS (irritable bowel syndrome) Hydronephrosis Diverticulitis Osteoporosis Fibromyalgia Home Medications ?Medication ?Instructions ?Recorded ?Last Taken ?Type calcium carbonate 1,200 mg PO DAILY 07/07/19 0 01/04/25 History Lactobacillus acidophilus and 1 ea PO DAILY 09/09/19 0 01/04/25 History rhamnosus 15 billion cell capsule vitamins A,C,J-prfy-fvrkcw 4,296 1 cap PO BID 12/19/21 01/04/25 History mcg-226 mg-90 mg capsule (PreserVision AREDS) dicyclomine 20 mg tablet 20 mg PO BID PRN abdominal p ain 7 07/25/23 Unknown Rx days #14 tabs cholecalciferol (vitamin D3) 25 25 mcg PO DAILY 01/04/25 History mcg (1,000 unit) capsule gabapentin 100 mg capsule 100 mg PO TID PRN NERVE PAIN 07/13/24 Unknown History denosumab 60 mg/mL subcutaneous 60 mg subcut [id number] #1 mL 07/28/24 08/14/24 Rx syringe [id number]-[id number]-lgafqzi 1 cap PO TID #320 caps 10/2501/04/25 Rx 36,000-114,000-180,000 unit capsule,delay rel (Creon) cholestyramine (with sugar) 4 gram 4 g PO QHS PRN diar bro 01/04/25 Unknown History powder for susp in a packet cyclosporine 0.05 % eye drops in a 1 drp ophthalmic (e ye) Q12H 01/04/25 01/04/25 History dropperette (Restasis) duloxetine 30 mg capsule,delayed 60 mg PO QHS NERVE PA IN 01/04/25 01/03/25 History release (Cymbalta) vitamin E 268 mg (400 unit) capsule 268 mg PO DAILY 01/04/25 History bupropion HCl 150 mg 24 hr tablet, 150 mg PO DAILY #90 tabs 04/26/25 Unknown Rx extended release duloxetine 30 mg capsule,delayed 30 mg PO DAILY #270 c aps 04/26/25 Unknown Rx release hydroxyzine HCl 25 mg tablet 25 mg PO BID PRN anxiety #180 tabs 04/26/25 Unknown Rx amoxicillin 500 mg capsule 500 mg PO TID dental pain 0 05/12/25 Unknown History oxycodone-acetaminophen 5 mg-300 1 tab PO Q8H PRN pain 3 days #10 05/12/25 Un known Rx mg tablet tabs Allergy/AdvReac Type Severity Reaction Status Date / Time codeine Allergy Rash Verified 05/12/25 08:38 ibandronate sodium (From AdvReac EXTREME Verified 05/12/25 08:38 Boniva) GERD plasic tape Allergy Mild Rash Uncoded 04/03/25 12:04 Family History Father Arthritis Grandmother Diabetes Grandfather Myocardial infarction Mother Myocardial infarction CVA (cerebral vascular accident) Other Fibromyalgia IBS (irritable bowel syndrome) Surgical History History of cholecystectomy History of cholecystectomy H/O: hysterectomy Hx of colonoscopy Cataract extraction status History of repair of hiatal hernia Social History Smoking Status: Former smoker alcohol intake: never substance use type: does not use what type of physical activity do you participate in: none ROS ROS ED ROS Narrative Denies recent illness. Atraumatic right-sided dental pain. Constitutional Constitutional ED: Denies chills or fever(s) Eyes Eyes: Denies blurry vision ENT ENT ED: Denies ear pain Cardiovascular Cardiovascular: Denies chest pain Respiratory/Chest Respiratory/Chest: Denies cough or dyspnea Gastrointestinal Gastrointestinal: Denies abdominal pain Genitourinary Genitourinary ED: Denies dysuria or hematuria Musculoskeletal Musculoskeletal: Denies arthralgias Integumentary Denies abscess or Abrasions Neurologic Neurologic: Denies headache(s) Psychiatric Psychiatric: Denies anxiety or depression Endocrine Endocrinology: Denies cold intolerance Hematologic/Lymphatic Hematologic/Lymphatic: Denies easy bleeding, easy bruising or lymphadenopathy Allergic/Immunologic Allergic/Immunologic ED: Denies mouth swelling, tongue swelling or urticaria EXAM Physical Exam Narrative Exam Narrative: 74-year-old female sitting upright in bed. No acute distress. Coming by her . Vital signs stable afebrile. H EENT exam pupils round react to light. Moist mucous membranes. Normal-appearing tongue. Floor of her mouth is normal. She has had dental work done. There is no signs of any obvious cavity. There is no gingival swelling. There is no abscess. There is no trismus. There is no TMJ pain. She can open and close her mouth without any difficulty. She has no trouble swallowing. There is no obvious dental infection or cavitiesseen. There is no swelling to her jaw or face or neck. There is no lymphadenopathy. Neck nontender. Lungs clear. Heart regular rhythm no murmur. Abdomen soft nontender. Moving all 4 extremities. Nontender no edema. She isawake and alert. Const Vital Signs: 05/12/25 08:36 05/12/25 08:53 Temperature 97.7 F L 97.8 F Temperature Source Temporal Pulse Rate 68 72 Respiratory Rate 14 14 Blood Pressure 138/75 H 139/74 H Blood Pressure Mean 96 95 Pulse Ox 100 100 Oxygen Delivery Method Room Air Positive well nourished and well developed; Negative for obese, cachectic, contractures or unkempt General Appearance ED: well developed and NAD; Negative for unkempt, cachectic or contractures Nutritional Appearance: Negative for cachectic or obese HEENT Negative for trauma or tenderness Face and Sinus: Negative for sinuses nontender Mouth ED: Yes oral and palatal mucosa normal, Yes lips normal, Yes tongue normaland Yes salivary gland normal Mouth: oral and palatal mucosa normal, lips normal, tongue normal and salivary gland normal Teeth and Gingiva: Negative for abnormal tooth and associated gingiva, caries, gingiva abnormal, poor dentition or teeth discoloration Throat: posterior oropharynx normal Eyes PERRL and EOMs intact bilaterally Neck no lymphadenopathy, supple and no JVD General: normal visual inspection Lymph Lymphatic: no lymphadenopathy noted Chest Wall inspection of chest normal and palpation of chest normal Resp normal respiratory effort, no retractions and clear to auscultation bilaterally Cardio regular rate, regular rhythm, S1 normal heart sound, S2 normal heart sound and no murmurs GI normal to inspection, nondistended, normoactive bowel sounds, non-tender and non-distended Back/Spine no CVA tenderness Extremity normal to inspection and no joint enlargement Neuro oriented x3, CN's II-XII intact bilaterally, moves all extremities and no focal motor deficits Sensorium / Orientation: alert, oriented to person, oriented to place and oriented to time Motor Exam: strength 5/5 throughout Psych mental status grossly normal Appearance: Negative for unkempt Skin no rashes or lesions noted and no wounds MDM MDM MDM Narrative Medical decision making narrative: 74-year-old with dental pain. I cannot find a specific cause. Does not appear to be TMJ. There is no obvious cavity. There is no gingivitis. There is no abscess. There is no Dickson's. There is no swelling. No lymphadenopathy. Her dentist is already called her in amoxicillin. She is already using Tylenol and ibuprofen and gabapentin for pain. She be written for very few oxycodone. She will follow-up with her dentist on Wednesday. She does not a labs or imaging. History & Record Review Discussion w/independent historian: Patient and Family Additional record(s) reviewed:: Prior inpatient record, Prior outpatient record,Prior ED visit and Prior labs Discharge Plan Triage Chief Complaint: Dental ED Provider: Dain Waller Dx/Rx/DC Orders Clinical Impression: Pain, dental Instructions: ED Dental Pain Prescriptions: New oxycodone-acetaminophen 5-300 mg tablet 1 tab PO Q8H PRN (Reason: pain) 3 Days Qty: 10 0RF No Action PreserVision AREDS [id number] trmg-vo-pbcp capsule 1 cap PO BID cholecalciferol (vitamin D3) 25 mcg (1,000 unit) capsule 25 mcg PO DAILY denosumab 60 mg/mL syringe 60 mg subcut [id number] Qty: 1 1RF gabapentin 100 mg capsule 100 mg PO TID PRN (Reason: NERVE PAIN) calcium carbonate 600 MG tablet 1,200 mg PO DAILY L. acidophilus-L. rhamnosus 1 EACH capsule 1 ea PO DAILY dicyclomine 20 mg tablet 20 mg PO BID PRN (Reason: abdominal pain) 7 Days Qty: 14 0RF duloxetine [Cymbalta] 30 mg capsule,delayed release(DR/EC) 60 mg PO QHS Rx Instructions: TAKE 1 CAP IN AM, 2 CAPS QHS cyclosporine [Restasis] 0.05 % dropperette 1 drp ophthalmic (eye) Q12H Patient Comments: only takes as needed cholestyramine (with sugar) 4 gram powder in packet 4 g PO QHS PRN (Reason: diarrhea) vitamin E 268 mg (400 unit) capsule 268 mg PO DAILY amoxicillin 500 mg capsule 500 mg PO TID Creon 36,000-114,000- 180,000 unit capsule,delayed release(DR/EC) 1 cap PO TID Qty: 320 11RF Rx Instructions: administer with meals and/or snacks duloxetine 30 mg capsule,delayed release(DR/EC) 30 mg PO DAILY Qty: 270 1RF Rx Instructions: TAKE 1 CAP IN AM, 2 CAPS QHS bupropion HCl 150 mg tablet extended release 24 hr 150 mg PO DAILY Qty: 90 1RF hydroxyzine HCl 25 mg tablet 25 mg PO BID PRN (Reason: anxiety) Qty: 180 1RF Primary Care Provider: Katalina Velazquez Referrals: Katalina Velazquez MD [Primary Care Provider] - Activity Restrictions/Additional Instructions: Ice to your jaw. Motrin for pain. Oxycodone for severe pain. Follow-up with your dentist on Wednesday. Use the antibiotic they prescribed. Currently I do not see an infection but sometimes it is early and you do not seesigns of the infection. Print Language: Danish Disposition Disposition: Home, Self Care What to do if you have Problems For any increased pain, shortness of breath, bleeding, nausea or vomiting, chestpain, or any unexpected problems, contact your Primary Care Provider. Call [facility] ([phone]) or report to the closest Emergency Room. Call 911 if necessary. 05/12/25 0900 <Electronically signed by Dain Waller MD> Cosigner Signature (if applicable): CC: Dr. Katalina Velazquez MD ~ Signed [facility] Work Phone: Evaluation + Plan note Future Appointments Appointment Date:04/03/2022 11:00:00 AM Scheduled Provider:LILLY VICENTE DO Location:[facility] Appointment Type: OV Future Scheduled Tests Radiology* NM Myocardial Spect Rest/Stress 09/22/21 * NM Myocardial Spect Rest/Stress 10/03/21 * XR Spine Lumbar W/Obliques 4 Views 10/03/21 [facility] Evaluation note* Diagnosis Onset Date Resolution Status Abdominal pain acute Diarrhea acute [facility] Work Phone: evaluation note* Diagnosis Onset Date Resolution Status Abdominal pain acute Diarrhea acute Abdominal pain acute Diarrhea acute [facility] Work Phone: evaluation note* Diagnosis Onset Date Resolution Status Exocrine pancreatic insufficiency [facility] Work Phone: evaluation note* Diagnosis Onset Date Resolution Status Positive P-ANCA titer acute Abdominal pain chronic Exocrine pancreatic insufficiency [facility] Work Phone: evaluation note* Diagnosis Onset Date Resolution Status Positive P-ANCA titer acute Abdominal pain chronic Exocrine pancreatic insufficiency chronic Urinary tract infection with hematuria acute [facility] Work Phone: evaluation note* Diagnosis Onset Date Resolution Status Urinary tract infection with hematuria acute Facet arthritis of lumbosacral region acute Degenerative disc disease at L5-S1 level acute Facet arthritis of lumbosacral region acute [facility] Work Phone: evaluation note* Diagnosis Onset Date Resolution Status Urinary tract infection with hematuria acute Facet arthritis of lumbosacral region acute Degenerative disc disease at L5-S1 level acute Facet arthritis of lumbosacral region acute Abdominal pain chronic Exocrine pancreatic insufficiency chronic Positive P-ANCA titer chroni c Abdominal pain chronic Anxiety and depression chron ic Chronic back pain chronic Exocrine pancreatic insufficiency chronic Osteoporosis chronic Degenerative disc disease at L5-S1 level acute Osteoporosis [facility] Work Phone: Evaluation note* Diagnosis Onset Date Resolution Status Degenerative disc disease at L5-S1 level acute Facet arthritis of lumbosacral region acute Abdominal pain chronic Exocrine pancreatic insufficiency chronic Positive P-ANCA titer chroni c Abdominal pain chronic Anxiety and depression chron ic Chronic back pain chronic Exocrine pancreatic insufficiency chronic Osteoporosis chronic Degenerative disc disease at L5-S1 level acute Osteoporosis chronic Osteoporosis [facility] Work Phone: Evaluation note* Diagnosis Onset Date Resolution Status Abdominal pain chronic Anxiety and depression chron ic Chronic back pain chronic Exocrine pancreatic insufficiency chronic Osteoporosis chronic Degenerative disc disease at L5-S1 level acute Osteoporosis chronic Osteoporosis chronic Anxiety and depression chron ic Chronic back pain chronic Exocrine pancreatic insufficiency chronic Osteoporosis [facility] Work Phone: Evaluation note* Diagnosis Onset Date Resolution Status Osteoporosis chronic Anxiety and depression chron ic Chronic back pain chronic Exocrine pancreatic insufficiency chronic Osteoporosis [facility] Work Phone: Evaluation note* Diagnosis Onset Date Resolution Status Anxiety and depression chron ic Chronic back pain chronic Exocrine pancreatic insufficiency chronic Osteoporosis [facility] Work Phone: Evaluation note* Diagnosis Onset Date Resolution Status Anxiety and depression chron ic Chronic back pain chronic Exocrine pancreatic insufficiency chronic Osteoporosis chronic Left knee pain acute Anxiety and depression chron ic Exocrine pancreatic insufficiency chronic GERD (gastroesophageal reflux disease) chronic Varicose veins of bilateral lower extremities with primitivo n [facility] Work Phone: Evaluation note* Diagnosis Onset Date Resolution Status Left knee pain acute Anxiety and depression chron ic Exocrine pancreatic insufficiency chronic GERD (gastroesophageal reflux disease) chronic Varicose veins of bilateral lower extremities with primitivo n [facility] Work Phone: Hospital course Narrative No data available for this section [facility] Hospital Discharge instructions No data available for this section [facility] Work Phone: [facility] Dis[facility] instructionsWL[facility] Work Phone: [facility] Discharge instructionsWLake[facility] Work Phone: Hospital Discharge instructions Additional Instructions Please stay hydrated, take Tylenol or Bentyl as needed for pain, and follow-up with your primary care or GI doctor to check on the stool culture results. If symptoms worsen or you feel you are dehydrated come back to the [facility] Work Phone: Hospital Discharge instructionsAdditional Instructions Ice to your jaw. Motrin for pain. Oxycodone for severe pain. Follow-up with your dentist on Wednesday. Use the antibiotic they prescribed. Currently I do not see an infection but sometimes it is early and you do not see signs of the infection.[facility] Work Phone: Reason for referral (narrative)No reason for referral information availableWLakeHealth Beach[facility] Work Phone: Summary Purpose Family History Relationship Condition Age at Onset Recorded Date/T curt Not Specified Fibromyalgia Unknown Irritable bowel syndrome Unknown father Arthritis Unknown grandmother Diabetes mellitus Unknown grandfather Myocardial infarction Unknown mother Myocardial infarction Unknown Cerebrovascular accident (CVA) Unknown Advance Directives Advance Directive Response Recorded Date/ Time Advance Directives Yes April 15, 2 016 3:48am Living Will No September 17 3:17pm Power of Food Service Tray Attendant No September 17 2 022 3:17pm Advance Directive Response Recorded Date/ Time Advance Directives Yes April 15, 2 016 2:48am Living Will No September 17 2 2:17pm Power of Food Service Tray Attendant No September 17, 2 022 2:17pm Advance Directive Response Recorded Date/ Time Advance Directives Yes April 15, 2 016 3:48am Living Will No February 01, 2023 2 :16pm Power of Food Service Tray Attendant No February 01, 2023 2:16pm Advance Directive Response Recorded Date/ Time Name of Medical Power of Food Service Tray Attendant July 25, 2023 2:24pm Advance Directives Yes April 15, 2 016 2:48am Living Will Yes July 25, 2 023 2:24pm Power of Food Service Tray Attendant Yes July 25, 2023 2:24pm Advance Directive Response Recorded Date/ Time Advance Directives Yes April 15, 2 016 3:48am Living Will Yes July 25, 023 3:24pm Power of Food Service Tray Attendant Yes July 25, 2023 3:24pm Advance Directive Response Recorded Date/ Time Living Will Yes July 25, 023 3:24pm Power of Food Service Tray Attendant Yes July 25, 2023 3:24pm Advance Directives Yes April 15, 2 016 3:48am Advance Directive Response Recorded Date/ Time Living Will Yes July 25, 023 3:24pm Do you have a Healthcare Power of Food Service Tray Attendant? Yes July 25, 2023 3:24pm Advance Directives Yes April 15, 016 3:48am Advance Directive Response Recorded Date/ Time Advance Directives Yes April 15, 016 3:48am Advance Directive Response Recorded Date/ Time Do you have a Healthcare Power of Food Service Tray Attendant? Yes January 04, 2025 5:58pm Advance Directives Yes April 15 016 3:48am Advance Directive Response Recorded Date/ Time Do you have a Healthcare Power of Food Service Tray Attendant? Yes May 12, 2025 8:42am Advance Directives Yes April 15, 016 3:48am Chief Complaint and Reason for Visit Chief Complaint CP CHEST DISCOMFORT LEXISCAN CHEST DISCOMFORT LEXISCAN EPIGASTRIC PAIN E ORDER EORDERS Reason for Visit Abdominal pain Diarrhea Chief Complaint CP CHEST DISCOMFORT LEXISCAN CHEST DISCOMFORT LEXISCAN EPIGASTRIC PAIN E ORDER EORDERS ABDOMINAL PAIN Reason for Visit Abdominal pain Diarrhea Chief Complaint EPIGASTRIC PAIN E ORDER EORDERS ABDOMINAL PAIN 8 WKS Reason for Visit Abdominal pain Diarrhea Abdominal pain Diarrhea Chief Complaint 3 MO FU LABS AND XRAY- PAIN- COPY PCP Reason for Visit Exocrine pancreatic insufficiency Chief Complaint 3 MO FU LABS AND XRAY- PAIN- COPY PCP SCREENING/OSTEO Reason for Visit Exocrine pancreatic insufficiency Chief Complaint LABS AND XRAY- PAIN- COPY PCP SCREENING/OSTEO 5 MO FU e order ? CHRONIC PANCREATITIS Reason for Visit Positive P-ANCA tite r Abdominal pain Exocrine pancreatic insufficiency Chief Complaint SCREENING/OSTEO 5 MO FU e order ? CHRONIC PANCREATITIS DIARRHEA E ORDERS Reason for Visit Positive P-ANCA tite r Abdominal pain Exocrine pancreatic insufficiency Chief Complaint 5 MO FU e order ? CHRONIC PANCREATITIS DIARRHEA E ORDERS Exocrine pancreatic insufficiency Reason for Visit Positive P-ANCA tite r Abdominal pain Exocrine pancreatic insufficiency Chief Complaint 5 MO FU e order ? CHRONIC PANCREATITIS DIARRHEA E ORDERS Exocrine pancreatic insufficiency CONCERN FOR UTI Reason for Visit Positive P-ANCA emilia r Abdominal pain Exocrine pancreatic insufficiency Urinary tract infection with hematuria Chief Complaint 5 MO FU e order ? CHRONIC PANCREATITIS DIARRHEA E ORDERS Exocrine pancreatic insufficiency CONCERN FOR UTI LUMBAR BACK PAIN Reason for Visit Positive P-ANCA emilia r Abdominal pain Exocrine pancreatic insufficiency Urinary tract infection with hematuria Chief Complaint DIARRHEA E ORDERS Exocrine pancreatic insufficiency CONCERN FOR UTI LUMBAR BACK PAIN LUMBAR SPINE Other intervertebral disc displacement, lumbar reg LUMBAR SPINE Reason for Visit Urinary tract infect ion with hematuria Facet arthritis of lumbosacral region Degenerative disc disease at L5-S1 level Facet arthritis of lumbosacral region Chief Complaint CONCERN FOR UTI LUMBAR BACK PAIN LUMBAR SPINE Other intervertebral disc displacement, lumbar reg LUMBAR SPINE 5 MO FU CERTIFIED FAMILY MEDIATOR EST CARE-PPW SENT LUMBAR SPINE ABD Reason for Visit Urinary tract infect ion with hematuria Facet arthritis of lumbosacral region Degenerative disc disease at L5-S1 level Facet arthritis of lumbosacral region Abdominal pain Exocrine pancreatic insufficiency Positive P-ANCA titer Abdominal pain Anxiety and depression Chronic back pain Exocrine pancreatic insufficiency Osteoporosis Degenerative disc disease at L5-S1 level Osteoporosis Chief Complaint Other intervertebral disc displacement, lumbar reg LUMBAR SPINE 5 MO FU CERTIFIED FAMILY MEDIATOR EST CARE-PPW SENT LUMBAR SPINE ABD Osteoporosis EVENITY EVENITY Reason for Visit Degenerative disc di sease at L5-S1 level Facet arthritis of lumbosacral region Abdominal pain Exocrine pancreatic insufficiency Positive P-ANCA titer Abdominal pain Anxiety and depression Chronic back pain Exocrine pancreatic insufficiency Osteoporosis Degenerative disc disease at L5-S1 level Osteoporosis Osteoporosis Chief Complaint CERTIFIED FAMILY MEDIATOR EST CARE-PPW SENT LUMBAR SPINE ABD Osteoporosis EVENITY EVENITY 3 M FU EVENITY Reason for Visit Abdominal pain Anxiety and depression Chronic back pain Exocrine pancreatic insufficiency Osteoporosis Degenerative disc disease at L5-S1 level Osteoporosis Osteoporosis Anxiety and depression Chronic back pain Exocrine pancreatic insufficiency Osteoporosis Chief Complaint ABD Osteoporosis EVENITY EVENITY 3 M FU EVENITY EVENITY Reason for Visit Osteoporosis Anxiety and depression Chronic back pain Exocrine pancreatic insufficiency Osteoporosis Chief Complaint Osteoporosis EVENITY EVENITY 3 M FU EVENITY EVENITY COUGH/SINUS CONGESTION/SORE THROAT SCREENING EVENITY Reason for Visit Osteoporosis Anxiety and depression Chronic back pain Exocrine pancreatic insufficiency Osteoporosis Chief Complaint EVENITY EVENITY 3 M FU EVENITY EVENITY COUGH/SINUS CONGESTION/SORE THROAT SCREENING EVENITY 2ND VISIT/COUGH/URINARY COMPLAINTS Reason for Visit Anxiety and depressi on Chronic back pain Exocrine pancreatic insufficiency Osteoporosis Chief Complaint EVENITY 3 M FU EVENITY EVENITY COUGH/SINUS CONGESTION/SORE THROAT SCREENING EVENITY 2ND VISIT/COUGH/URINARY COMPLAINTS 3 M FU Reason for Visit Anxiety and depressi on Chronic back pain Exocrine pancreatic insufficiency Osteoporosis Left knee pain Anxiety and depression Exocrine pancreatic insufficiency GERD (gastroesophageal reflux disease) Varicose veins of bilateral lower extremities with pain Chief Complaint EVENITY 3 M FU EVENITY EVENITY COUGH/SINUS CONGESTION/SORE THROAT SCREENING EVENITY 2ND VISIT/COUGH/URINARY COMPLAINTS 3 M FU EVENITY Reason for Visit Anxiety and depressi on Chronic back pain Exocrine pancreatic insufficiency Osteoporosis Left knee pain Anxiety and depression Exocrine pancreatic insufficiency GERD (gastroesophageal reflux disease) Varicose veins of bilateral lower extremities with pain Chief Complaint EVENITY EVENITY COUGH/SINUS CONGESTION/SORE THROAT SCREENING EVENITY 2ND VISIT/COUGH/URINARY COMPLAINTS 3 M FU EVENITY PAIN IN LEFT KNEE Reason for Visit Left knee pain Anxiety and depression Exocrine pancreatic insufficiency GERD (gastroesophageal reflux disease) Varicose veins of bilateral lower extremities with pain Chief Complaint EVENITY EVENITY COUGH/SINUS CONGESTION/SORE THROAT SCREENING EVENITY 2ND VISIT/COUGH/URINARY COMPLAINTS 3 M FU EVENITY PAIN IN LEFT KNEE EVENITY Reason for Visit Left knee pain Anxiety and depression Exocrine pancreatic insufficiency GERD (gastroesophageal reflux disease) Varicose veins of bilateral lower extremities with pain Chief Complaint Admit Date CERVICAL PAIN August 14, 2024 9 :01am 2 M FU August 14, 2024 1 :37pm Prolia - B&B August 16, 2024 1 0:00am CERVICAL SPINE September 01, 2024 8:21am Atherosclerosis of aorta September 14 2:44pm Atherosclerosis of aorta September 14 4:46pm ST/L EAR PAIN/MOUTH SORES September 19 025 12:42pm 3 M FU November 13, 2024 10:0 1am COMPARE 2022November 15, 2024 10:0 9am SCREENING November 27, 2024 11: 43am Reason for Visit Admit Date Screening for cardiovascular condition D 2023 1:37pm Submandibular lymphadenopathy August 142023 1:37pm Anxiety and depression August 14 1:37pm GERD (gastroesophageal reflux disease) D 2023 1:37pm Osteoporosis August 16, 2024 1 0:00am Other cervical disc degenera tion, mid-cervical region, unspecified level September 01, 2024 8:21am Spondylolisthesis of cervical region Dec emb2023 8:21am Blister of gingiva with infection y 2024 12:42pm At high risk for cardiovascular disease November 13, 2024 10:01am Localized swelling, mass and lump, neck November 13, 2024 10:01am Anxiety and depression November 13, 2024 1 0:01am GERD (gastroesophageal reflux disease) [facility] 2024 10:01am Osteoporosis November 13, 2024 10:0 1am Chief Complaint Admit Date CERVICAL PAIN August 14, 2024 9 :01am 2 M FU August 14, 2024 1 :37pm Prolia - B&B August 16, 2024 1 0:00am CERVICAL SPINE September 01, 2024 8:21am Atherosclerosis of aorta September 14 2:44pm Atherosclerosis of aorta September 14 4:46pm ST/L EAR PAIN/MOUTH SORES September 19 12:42pm 3 M FU November 13, 2024 10:0 1am COMPARE 2022November 15, 2024 10:0 9am SCREENING November 27, 2024 11: 43am Mass and lump on neck December 08, 2024 8 :25am INT LAB ORDERS December 08, 2024 9:1 2am Reason for Visit Admit Date Screening for cardiovascular condition D ec2023 1:37pm Submandibular lymphadenopathy August 142023 1:37pm Anxiety and depression August 14 1:37pm GERD (gastroesophageal reflux disease) D ec2023 1:37pm Osteoporosis August 16, 2024 1 0:00am Other cervical disc degenera tion, mid-cervical region, unspecified level September 01, 2024 8:21am [facility] Blister of gingiva with infection r y 2024 12:42pm At high risk for cardiovascular disease November 13, 2024 10:01am Localized swelling, mass and lump, neck November 13, 2024 10:01am Anxiety and depression November 13, 2024 1 0:01am GERD (gastroesophageal reflux disease) [facility] 2024 10:01am Osteoporosis November 13, 2024 10:0 1am Localized swelling, mass and lump, neck December 08, 2024 8:25am Thyroid nodule December 08, 2024 8:2 5am Chief Complaint Admit Date CERVICAL SPINE September 01, 2024 8:21am Atherosclerosis of aorta September 14 2:44pm Atherosclerosis of aorta September 14 4:46pm ST/L EAR PAIN/MOUTH SORES September 19 025 12:42pm 3 M FU November 13, 2024 10:0 1am COMPARE 2022November 15, 2024 10:0 9am SCREENING November 27, 2024 11: 43am Mass and lump on neck December 08, 2024 8 :25am INT LAB ORDERS December 08, 2024 9:1 2am THYROID NODULE December 18, 2024 12:1 7pm Reason for Visit Admit Date Other cervical disc degenera tion, mid-cervical region, unspecified level September 01, 2024 8:21am Spondylolisthesis of cervical region Dec emb2023 8:21am Blister of gingiva with infection Januar y 2024 12:42pm At high risk for cardiovascular disease November 13, 2024 10:01am Localized swelling, mass and lump, neck November 13, 2024 10:01am Anxiety and depression November 13, 2024 1 0:01am GERD (gastroesophageal reflux disease) M 2024 10:01am Osteoporosis November 13, 2024 10:0 1am Localized swelling, mass and lump, neck December 08, 2024 8:25am Thyroid nodule December 08, 2024 8:2 5am Chief Complaint Admit Date CERVICAL SPINE September 01, 2024 8:21am Atherosclerosis of aorta September 14 2:44pm Atherosclerosis of aorta September 14 4:46pm ST/L EAR PAIN/MOUTH SORES September 19 025 12:42pm 3 M FU November 13, 2024 10:0 1am COMPARE 2022November 15, 2024 10:0 9am SCREENING November 27, 2024 11: 43am Mass and lump on neck December 08, 2024 8 :25am INT LAB ORDERS December 08, 2024 9:1 2am THYROID NODULE December 18, 2024 12:1 7pm NECK MASS December 28, 2024 7:4 5am Chief Complaint Admit Date Atherosclerosis of aorta September 14 2:44pm Atherosclerosis of aorta September 14 4:46pm ST/L EAR PAIN/MOUTH SORES Kristi 7th, 2 025 12:42pm 3 M FU November 13, 2024 10:0 1am COMPARE 2022November 15, 2024 10:0 9am SCREENING November 27, 2024 11: 43am Mass and lump on neck December 08, 2024 8 :25am INT LAB ORDERS December 08, 2024 9:1 2am THYROID NODULE December 18, 2024 12:1 7pm NECK MASS December 28, 2024 7:4 5am general illness January 04, 2025 4:0 7pm ELEVATED LIVER FUNCTION TESTS, DIARRHEA January 04, 2025 4:08pm Reason for Visit Admit Date Blister of gingiva with infection Januar y 2024 12:42pm At high risk for cardiovascular disease November 13, 2024 10:01am Localized swelling, mass and lump, neck November 13, 2024 10:01am Anxiety and depression November 13, 2024 1 0:01am GERD (gastroesophageal reflux disease) 2024 10:01am Osteoporosis November 13, 2024 10:0 1am Localized swelling, mass and lump, neck December 08, 2024 8:25am Thyroid nodule December 08, 2024 8:2 5am Elevated liver enzymes January 04, 2025 4:08pm Chief Complaint Admit Date 3 M November 13, 2024 10:0 1am COMPARE 2022November 15, 2024 10:0 9am SCREENING November 27, 2024 11: 43am Mass and lump on neck December 08, 2024 8 :25am INT LAB ORDERS December 08, 2024 9:1 2am THYROID NODULE December 18, 2024 12:1 7pm NECK MASS December 28, 2024 7:4 5am general illness January 04, 2025 4:0 7pm ELEVATED LIVER FUNCTION TESTS, DIARRHEA January 04, 2025 4:08pm ELEVATED LIVER FUNCTION TESTS, DIARRHEA January 05, 2025 3:09pm lumbar spine January 19, 2025 9:48am room 4 January 19, 2025 10:00a m 3 M FU January 29, 2025 10:08 am Reason for Visit Admit Date At high risk for cardiovascular disease November 13, 2024 10:01am Localized swelling, mass and lump, neck November 13, 2024 10:01am Anxiety and depression November 13, 2024 1 0:01am GERD (gastroesophageal reflux disease) [facility] 2024 10:01am Osteoporosis November 13, 2024 10:0 1am Localized swelling, mass and lump, neck December 08, 2024 8:25am Thyroid nodule December 08, 2024 8:2 5am Elevated liver enzymes January 04, 2025 4:08pm Degenerative disc disease at L5-S1 level January 19, 2025 9:48am Spondylolisthesis at L5-S1 level January 9:48am Reason for Visit Admit Date At high risk for cardiovascular disease November 13, 2024 10:01am Localized swelling, mass and lump, neck November 13, 2024 10:01am Anxiety and depression November 13, 2024 1 0:01am GERD (gastroesophageal reflux disease) [facility] 2024 10:01am Osteoporosis November 13, 2024 10:0 1am Localized swelling, mass and lump, neck December 08, 2024 8:25am Thyroid nodule December 08, 2024 8:2 5am Elevated liver enzymes January 04, 2025 4:08pm Degenerative disc disease at L5-S1 level January 19, 2025 9:48am Spondylolisthesis at L5-S1 level January 9:48am Coronary artery disease January 29, 2025 1 0:08am Elevated liver enzymes January 29, 2025 10 :08am Health care maintenance January 29, 2025 1 0:08am Localized swelling, mass and lump, neck January 29, 2025 10:08am Anxiety and depression January 29, 2025 10 :08am GERD (gastroesophageal reflux disease) [facility] 2024 10:08am Chief Complaint Admit Date 3 M FU November 13, 2024 10:0 1am COMPARE 2022November 15, 2024 10:0 9am SCREENING November 27, 2024 11: 43am Mass and lump on neck December 08, 2024 8 :25am INT LAB ORDERS December 08, 2024 9:1 2am THYROID NODULE December 18, 2024 12:1 7pm NECK MASS December 28, 2024 7:4 5am general illness January 04, 2025 4:0 7pm ELEVATED LIVER FUNCTION TESTS, DIARRHEA January 04, 2025 4:08pm ELEVATED LIVER FUNCTION TESTS, DIARRHEA January 05, 2025 3:09pm lumbar spine January 19, 2025 9:48am room 4 January 19, 2025 10:00a m 3 M January 29, 2025 10:08 am Prolia - B&B February 13, 2025 11:16 am Chief Complaint Admit Date Mass and lump on neck December 08, 2024 8 :25am INT LAB ORDERS December 08, 2024 9:1 2am THYROID NODULE December 18, 2024 12:1 7pm NECK MASS December 28, 2024 7:4 5am general illness January 04, 2025 4:0 7pm ELEVATED LIVER FUNCTION TESTS, DIARRHEA January 04, 2025 4:08pm ELEVATED LIVER FUNCTION TESTS, DIARRHEA January 05, 2025 3:09pm lumbar spine January 19, 2025 9:48am room 4 January 19, 2025 10:00a m 3 M January 29, 2025 10:08 am Prolia - B&B February 13, 2025 11:16 am CONCERN FOR UTI March 28, 2025 3:01 pm Reason for Visit Admit Date Localized swelling, mass and lump, neck December 08, 2024 8:25am Thyroid nodule December 08, 2024 8:2 5am Elevated liver enzymes January 04, 2025 4:08pm Degenerative disc disease at L5-S1 level January 19, 2025 9:48am Spondylolisthesis at L5-S1 level January 9:48am Coronary artery disease January 29, 2025 1 0:08am Elevated liver enzymes January 29, 2025 10 :08am Health care maintenance January 29, 2025 1 0:08am Localized swelling, mass and lump, neck January 29, 2025 10:08am Anxiety and depression January 29, 2025 10 :08am GERD (gastroesophageal reflux disease) ay 2024 10:08am Osteoporosis February 13, 2025 11:16 am Chief Complaint Admit Date Mass and lump on neck December 08, 2024 8 :25am INT LAB ORDERS December 08, 2024 9:1 2am THYROID NODULE December 18, 2024 12:1 7pm NECK MASS December 28, 2024 7:4 5am general illness January 04, 2025 4:0 7pm ELEVATED LIVER FUNCTION TESTS, DIARRHEA January 04, 2025 4:08pm ELEVATED LIVER FUNCTION TESTS, DIARRHEA January 05, 2025 3:09pm lumbar spine January 19, 2025 9:48am room 4 January 19, 2025 10:00a m 3 M FU January 29, 2025 10:08 am Prolia - B&B February 13, 2025 11:16 am CONCERN FOR UTI March 28, 2025 3:01 pm Lung cancer screening April 03, 2025 11 :57am Chief Complaint Admit Date THYROID NODULE December 18, 2024 12:1 7pm NECK MASS December 28, 2024 7:4 5am general illness January 04, 2025 4:0 7pm ELEVATED LIVER FUNCTION TESTS, DIARRHEA January 04, 2025 4:08pm ELEVATED LIVER FUNCTION TESTS, DIARRHEA January 05, 2025 3:09pm lumbar spine January 19, 2025 9:48am room 4 January 19, 2025 10:00a m 3 M FU January 29, 2025 10:08 am Prolia - B&B February 13, 2025 11:16 am CONCERN FOR UTI March 28, 2025 3:01 pm Lung cancer screening April 03, 2025 11 :57am SCREENING April 03, 2025 12:3 1pm Reason for Visit Admit Date Elevated liver enzymes January 04, 2025 4:08pm Degenerative disc disease at L5-S1 level January 19, 2025 9:48am Spondylolisthesis at L5-S1 level January 9:48am Coronary artery disease January 29, 2025 1 0:08am Elevated liver enzymes January 29, 2025 10 :08am Health care maintenance January 29, 2025 1 0:08am Localized swelling, mass and lump, neck January 29, 2025 10:08am Anxiety and depression January 29, 2025 10 :08am GERD (gastroesophageal reflux disease) M 2024 10:08am Osteoporosis February 13, 2025 11:16 am Encounter for screening for malignant ne oplasm of lung April 03, 2025 11:57am Former smoker April 03, 2025 11:5 7am Chief Complaint Admit Date lumbar spine January 19, 2025 9:48am room 4 January 19, 2025 10:00a m 3 M FU January 29, 2025 10:08 am Prolia - B&B February 13, 2025 11:16 am CONCERN FOR UTI March 28, 2025 3:01 pm Lung cancer screening April 03, 2025 11 :57am SCREENING April 03, 2025 12:3 1pm dental May 12, 2025 8: 36am Reason for Visit Admit Date Degenerative disc disease at L5-S1 level January 19, 2025 9:48am Spondylolisthesis at L5-S1 level January 9:48am Coronary artery disease January 29, 2025 1 0:08am Elevated liver enzymes January 29, 2025 10 :08am Health care maintenance January 29, 2025 1 0:08am Localized swelling, mass and lump, neck January 29, 2025 10:08am Anxiety and depression January 29, 2025 10 :08am GERD (gastroesophageal reflux disease) M ay 2024 10:08am Osteoporosis February 13, 2025 11:16 am Encounter for screening for malignant ne oplasm of lung April 03, 2025 11:57am Former smoker April 03, 2025 11:5 7am Additional Source Comments INFORMATION SOURCE (unrecogn ized section and content) DATE CREATED AUTHOR 06/28/2019 [facility] DATE CREATED AUTHOR AUTHOR'S ORGANIZ ATION 11/23/[address] [facility] DATE CREATED AUTHOR AUTHOR'S ORGANIZ ATION 05/12/2025 [facility] Goals (unrecognized section and content) Goals may be documented in a n alternate section Care Teams (unrecognized sec tion and content) Team Status: Active Member Role Status Dates Dr. Lilly Vicente DO Family Provider Active Dr. Lilly Vicente DO Primary Care Provider Active Team Status: Inactive Member Role Status Dates Dr. Lilly Vicente DO Primary Care Provider, Referri ng Provider Active Dr. Ez Spencer , DO Attending Provider Active Team Status: Inactive Member Role Status Dates Dr. Lilly Vicente DO Primary Care Provider Active Dr. Anitra Dial MD Attending Provider, Referring Provider Active Team Status: Inactive Member Role Status Dates Dr. Lilly Vicente DO Primary Care Provider, Attendi ng Provider Active Team Status: Inactive Member Role Status Dates Dr. Lilly Vicente DO Primary Care Provider Active Dr. Ez Spencer , DO Attending Provider Active Team Status: Inactive Member Role Status Dates Dr. Lilly Vicente DO Primary Care Provider Active Dr. Ez Spencer , DO Attending Provider, Referring Provider Active Team Status: Inactive Member Role Status Dates Dr. Lilly Vicente DO Primary Care Provider Active Dr. Dain Waller MD Attending Provider, Emergency Pro vider Active Team Status: Inactive Member Role Status Dates Dr. Lilly Vicente DO Primary Care Provider, Referri ng Provider Active Hiren Awad PA, PA Attending Provider Active Team Status: Inactive Member Role Status Dates Dr. Lilly Vicente , DO Primary Care Provider Active Hiren Awad PA, PA Attending Provider Active Team Status: Inactive Member Role Status Dates Dr. Lilly Vicente , DO Primary Care Pro vider, Attending Provider, Referring Provider Active Team Status: Inactive Member Role Status Dates Dr. Lilly Vicente DO Primary Care Provider, Referri ng Provider Active Dr. Simon Acevedo DO Attending Provider Active Team Status: Inactive Member Role Status Dates Dr. Lilly Vicente DO Primary Care Provider Active Dr. Simon Acevedo DO Attending Provider, Referring P rovider Active Team Status: Active Member Role Status Dates Dr. Lilly Vicente DO Family Provider Active Dr. Katalina Velazquez MD Primary Care Provider Active Team Status: Inactive Member Role Status Dates Dr. Lilly Vicente DO Primary Care Provider, Referri ng Provider Active Dr. Katalina Velazquez MD Attending Provider Active Team Status: Inactive Member Role Status Dates Dr. Richie Tello MD Emergency Provider Active Dr. Katalina Velazquez MD Primary Care Provider Active Team Status: Inactive Member Role Status Dates Dr. Richie Tello MD Attending Provider, Emergency Provider Active Dr. Katalina Velazquez MD Primary Care Provider Active Team Status: Inactive Member Role Status Dates Dr. Katalina Velazquez MD Primary Care Provider Active BRIANNE Hurley Attending Provider Active Dr. Ez Spencer , DO Other Provider Active Team Status: Inactive Member Role Status Dates Dr. Lilly Vicente DO Referring Provider Active Dr. Austin Avina MD Attending Provider Active Dr. Katalina Velazquez MD Primary Care Provider Active Team Status: Inactive Member Role Status Dates Dr. Katalina Velazquez MD Primary Care Provider Active Dr. Austin Avina MD Attending Provider, Referring Provi lima Active Team Status: Inactive Member Role Status Dates Dr. Lilly Vicente DO Referring Provider Active Dr. Katalina Velazquez MD Primary Care Provider, Atten ding Provider Active Team Status: Inactive Member Role Status Dates Dr. Katalina Velazquez MD Primary Care Provider, Refer ring Provider Active Hiren Awad PA, PA Attending Provider Active Team Status: Active Member Role Status Dates Dr. Katalina Velazquez MD Primary Care Provider, Atten ding Provider Active Team Status: Inactive Member Role Status Dates Dr. Katalina Velazquez MD Primary Care Provider, Atten ding Provider Active Team Status: Inactive Member Role Status Dates Dr. Katalina Velazquez MD Primary Care P rovider, Attending Provider, Referring Provider Active Team Status: Active Member Role Status Dates Dr. Katalina Velazquez MD Primary Care Provider Active Team Status: Inactive Member Role Status Dates Dr. Katalina Velazquez MD Primary Care Provider Active Start: August 14, 2024 End: August 14, 2024 Dr. Ta Smith MD Attending Provider Active Start: August 14, 2024 End: August 14, 2024 Dr. Ta Smith MD Referring Provider Active Start: August 14, 2024 End: August 14, 2024 Team Status: Inactive Member Role Status Dates Dr. Katalina Velazquez MD Primary Care Provider Active Start: August 14, 2024 End: August 14, 2024 Dr. Katalina Velazquez MD Attending Provider Active Start: August 14, 2024 End: August 14, 2024 Dr. Katalina Velazquez MD Referring Provider Active Start: August 14, 2024 End: August 14, 2024 Team Status: Inactive Member Role Status Dates Dr. Katalina Velazquez MD Primary Care Provider Active Start: August 14, 2024 End: August 14, 2024 Dr. Katalina Velazquez MD Attending Provider Active Start: August 14, 2024 End: August 14, 2024 Team Status: Inactive Member Role Status Dates Dr. Katalina Velazquez MD Primary Care Provider Active Start: August 16, 2024 End: August 16, 2024 Dr. Katalina Velazquez MD Referring Provider Active Start: August 16, 2024 End: August 16, 2024 Dr. Austin Avina MD Attending Provider Active Sta rt: August 16, 2024 End: August 16, 2024 Team Status: Inactive Member Role Status Dates Dr. Katalina Velazquez MD Primary Care Provider Active Start: September 01, 2024 End: September 01, 2024 Dr. Katalina Velazquez MD Referring Provider Active Start: September 01, 2024 End: September 01, 2024 Dr. Ta Smith MD Attending Provider Active Start: September 01, 2024 End: September 01, 2024 Team Status: Inactive Member Role Status Dates Dr. Katalina Velazquez MD Primary Care Provider Active Start: September 14, 2024 End: September 14, 2024 Dr. Katalina Velazquez MD Attending Provider Active Start: September 14, 2024 End: September 14, 2024 Dr. Katalina Velazquez MD Referring Provider Active Start: September 14, 2024 End: September 14, 2024 Team Status: Active Member Role Status Dates Dr. Katalina Velazquez MD Primary Care Provider Active Start: September 14, 2024 Dr. Katalina Velazquez MD Referring Provider Active Start: September 14, 2024 Dr. Katalina Velazquez MD Other Provider Active Start: September 14, 2024 Dr. Kishor Isabel MD Attending Provider Active S tart: September 14, 2024 Team Status: Inactive Member Role Status Dates Dr. Katalina Velazquez MD Primary Care Provider Active Start: September 19, 2024 End: September 19, 2024 Dr. Katalina Velazquez MD Referring Provider Active Start: September 19, 2024 End: September 19, 2024 Hiren DECKER, PA Attending Provider Active Start: September 19, 2024 End: September 19, 2024 Team Status: Inactive Member Role Status Dates Dr. Katalina Velazquez MD Primary Care Provider Active Start: November 13, 2024 End: November 13, 2024 Dr. Katalina Velazquez MD Attending Provider Active Start: November 13, 2024 End: November 13, 2024 Dr. Katalina Velazquez MD Referring Provider Active Start: November 13, 2024 End: November 13, 2024 Team Status: Inactive Member Role Status Dates Dr. Katalina Velazquez MD Primary Care Provider Active Start: November 15, 2024 End: November 15, 2024 Dr. Austin Avina MD Attending Provider Active Sta rt: November 15, 2024 End: November 15, 2024 Dr. Austin Avina MD Referring Provider Active Sta rt: November 15, 2024 End: November 15, 2024 Team Status: Active Member Role Status Dates Dr. Katalina Velazquez MD Primary Care Provider Active Start: November 27, 2024 Dr. Katalina Velazquez MD Attending Provider Active Start: November 27, 2024 Dr. Katalina Velazquez MD Referring Provider Active Start: November 27, 2024 Team Status: Inactive Member Role Status Dates Dr. Katalina Velazquez MD Primary Care Provider Active Start: November 27, 2024 End: November 27, 2024 Dr. Katalina Velazquez MD Attending Provider Active Start: November 27, 2024 End: November 27, 2024 Dr. Kaatlina Velazquez MD Referring Provider Active Start: November 27, 2024 End: November 27, 2024 Team Status: Inactive Member Role Status Dates Dr. Katalina Velazquez MD Primary Care Provider Active Start: December 08, 2024 End: December 08, 2024 Dr. Katalina Velazquez MD Referring Provider Active Start: December 08, 2024 End: December 08, 2024 BRIANNE Thornton Attending Provider Active Star t: December 08, 2024 End: December 08, 2024 Team Status: Inactive Member Role Status Dates Dr. Katalina Velazquez MD Primary Care Provider Active Start: December 08, 2024 End: December 08, 2024 BRIANNE Thornton Attending Provider Active Star t: December 08, 2024 End: December 08, 2024 BRIANNE Thornton Referring Provider Active Star t: December 08, 2024 End: December 08, 2024 Team Status: Inactive Member Role Status Dates Dr. Katalina Velazquez MD Primary Care Provider Active Start: December 18, 2024 End: December 18, 2024 BRIANNE Thornton Attending Provider Active Star t: December 18, 2024 End: December 18, 2024 BRIANNE Thornton Referring Provider Active Star t: December 18, 2024 End: December 18, 2024 Team Status: Inactive Member Role Status Dates Dr. Katalina Velazquez MD Primary Care Provider Active Start: December 28, 2024 End: December 28, 2024 BRIANNE Thornton Attending Provider Active Star t: December 28, 2024 End: December 28, 2024 BRIANNE Thornton Referring Provider Active Star t: December 28, 2024 End: December 28, 2024 Team Status: Active Member Role Status Dates Dr. Katalina Velazquez MD Primary Care Provider Active Start: January 04, 2025 Dr. Radha Elias DO Emergency Provider Active Start: January 04, 2025 Dr. Makenzie Gonzáles MD Attending Provider Active Start: January 04, 2025 Team Status: Inactive Member Role Status Dates Dr. Katalina Velazquez MD Primary Care Provider Active Start: January 04, 2025 End: January 05, 2025 Dr. Radha Elias DO Emergency Provider Active Start: January 04, 2025 End: January 05, 2025 Dr. Makenzie Gonzáles MD Admit Provider Active Star t: January 04, 2025 End: January 05, 2025 Dr. Makenzie Gonzáles MD Other Provider Active Star t: January 04, 2025 End: January 05, 2025 Dr. Parveen Mosqueda DO Attending Provider Active Start: January 04, 2025 End: January 05, 2025 Team Status: Active Member Role Status Dates Dr. Katalina Velazquez MD Primary Care Provider Active Start: January 05, 2025 Dr. Radha Elias DO Emergency Provider Active Start: January 05, 2025 Dr. Makenzie Gonzáles MD Admit Provider Active Star t: January 05, 2025 Dr. Makenzie Gonzáles MD Other Provider Active Star t: January 05, 2025 Dr. Parveen Mosqueda DO Attending Provider Active Start: January 05, 2025 Dr. Parveen Mosqueda DO Other Provider Active S tart: January 05, 2025 Team Status: Inactive Member Role Status Dates Dr. Katalina Velazquez MD Primary Care Provider Active Start: January 08, 2025 End: January 08, 2025 Dr. Parveen Mosqueda DO Attending Provider Active Start: January 08, 2025 End: January 08, 2025 Dr. Parveen Mosqueda DO Referring Provider Active Start: January 08, 2025 End: January 08, 2025 Team Status: Inactive Member Role Status Dates Dr. Katalina Velazquez MD Primary Care Provider Active Start: January 19, 2025 End: January 19, 2025 Dr. Katalina Velazquez MD Referring Provider Active Start: January 19, 2025 End: January 19, 2025 BRIANNE Neely Attending Provider Active Star t: January 19, 2025 End: January 19, 2025 Team Status: Inactive Member Role Status Dates Dr. Katalina Velazquez MD Primary Care Provider Active Start: January 19, 2025 End: January 19, 2025 Dr. Kishor Isabel MD Attending Provider Active S tart: January 19, 2025 End: January 19, 2025 Team Status: Inactive Member Role Status Dates Dr. Katalina Velazquez MD Primary Care Provider Active Start: January 29, 2025 End: January 29, 2025 Dr. Katalina Velazquez MD Attending Provider Active Start: January 29, 2025 End: January 29, 2025 Dr. Katalina Velazquez MD Referring Provider Active Start: January 29, 2025 End: January 29, 2025 Team Status: Active Member Role Status Dates Dr. Katalina Velazquez MD Primary Care Provider Active Start: January 29, 2025 Dr. Katalina Velazquez MD Attending Provider Active Start: January 29, 2025 Dr. Katalina Velazquez MD Referring Provider Active Start: January 29, 2025 Team Status: Inactive Member Role Status Dates Dr. Katalina Velazquez MD Primary Care Provider Active Start: February 13, 2025 End: February 13, 2025 Dr. Katalina Velazquez MD Referring Provider Active Start: February 13, 2025 End: February 13, 2025 Dr. Austin Avina MD Attending Provider Active Sta rt: February 13, 2025 End: February 13, 2025 Team Status: Active Member Role/Relationship Status Dates Dr. Katalina Velazquez MD Primary Care Provider Active Team Status: Inactive Member Role/Relationship Status Dates Dr. Katalina Velazquez MD Primary Care Provider Active Start: December 08, 2024 End: December 08, 2024 Dr. Katalina Velazquez MD Referring Provider Active Start: December 08, 2024 End: December 08, 2024 BRIANNE Thornton Attending Provider Active Star t: December 08, 2024 End: December 08, 2024 Team Status: Inactive Member Role/Relationship Status Dates Dr. Katalina Velazquez MD Primary Care Provider Active Start: December 08, 2024 End: December 08, 2024 BRIANNE Thornton Attending Provider Active Star t: December 08, 2024 End: December 08, 2024 BRIANNE Thornton Referring Provider Active Star t: December 08, 2024 End: December 08, 2024 Team Status: Inactive Member Role/Relationship Status Dates Dr. Katalina Velazquez MD Primary Care Provider Active Start: December 18, 2024 End: December 18, 2024 BRIANNE Thornton Attending Provider Active Star t: December 18, 2024 End: December 18, 2024 BRIANNE Thornton Referring Provider Active Star t: December 18, 2024 End: December 18, 2024 Team Status: Inactive Member Role/Relationship Status Dates Dr. Katalina Velazquez MD Primary Care Provider Active Start: December 28, 2024 End: December 28, 2024 BRIANNE Thornton Attending Provider Active Star t: December 28, 2024 End: December 28, 2024 BRIANNE Thornton Referring Provider Active Star t: December 28, 2024 End: December 28, 2024 Team Status: Active Member Role/Relationship Status Dates Dr. Katalina Velazquez MD Primary Care Provider Active Start: January 04, 2025 Dr. Radha Elias DO Emergency Provider Active Start: January 04, 2025 Dr. Makenzie Gonzáles MD Attending Provider Active Start: January 04, 2025 Team Status: Inactive Member Role/Relationship Status Dates Dr. Katalina Velazquez MD Primary Care Provider Active Start: January 04, 2025 End: January 05, 2025 Dr. Radha Elias DO Emergency Provider Active Start: January 04, 2025 End: January 05, 2025 Dr. Makenzie Gonzáles MD Admit Provider Active Star t: January 04, 2025 End: January 05, 2025 Dr. Makenzie Gonzáles MD Other Provider Active Star t: January 04, 2025 End: January 05, 2025 Dr. Parveen Mosqueda DO Attending Provider Active Start: January 04, 2025 End: January 05, 2025 Team Status: Active Member Role/Relationship Status Dates Dr. Katalina Velazquez MD Primary Care Provider Active Start: January 05, 2025 Dr. Radha Elias DO Emergency Provider Active Start: January 05, 2025 Dr. Makenzie Gonzáles MD Admit Provider Active Star t: January 05, 2025 Dr. Makenzie Gonzáles MD Other Provider Active Star t: January 05, 2025 Dr. Parveen Mosqueda DO Attending Provider Active Start: January 05, 2025 Dr. Parveen Mosqueda DO Other Provider Active S tart: January 05, 2025 Team Status: Inactive Member Role/Relationship Status Dates Dr. Katalina Velazquez MD Primary Care Provider Active Start: January 08, 2025 End: January 08, 2025 Dr. Parveen Mosqueda DO Attending Provider Active Start: January 08, 2025 End: January 08, 2025 Dr. Parveen Mosqueda DO Referring Provider Active Start: January 08, 2025 End: January 08, 2025 Team Status: Inactive Member Role/Relationship Status Dates Dr. Katalina Velazquez MD Primary Care Provider Active Start: January 19, 2025 End: January 19, 2025 Dr. Katalina Velazquez MD Referring Provider Active Start: January 19, 2025 End: January 19, 2025 BRIANNE Neely Attending Provider Active Star t: January 19, 2025 End: January 19, 2025 Team Status: Inactive Member Role/Relationship Status Dates Dr. Katalina Velazquez MD Primary Care Provider Active Start: January 19, 2025 End: January 19, 2025 Dr. Kishor Isabel MD Attending Provider Active S tart: January 19, 2025 End: January 19, 2025 Team Status: Inactive Member Role/Relationship Status Dates Dr. Katalina Velazquez MD Primary Care Provider Active Start: January 29, 2025 End: January 29, 2025 Dr. Katalina Velazquez MD Attending Provider Active Start: January 29, 2025 End: January 29, 2025 Dr. Katalina Velazquez MD Referring Provider Active Start: January 29, 2025 End: January 29, 2025 Team Status: Inactive Member Role/Relationship Status Dates Dr. Katalina Velazquez MD Primary Care Provider Active Start: January 29, 2025 End: January 29, 2025 Dr. Katalina Velazquez MD Attending Provider Active Start: January 29, 2025 End: January 29, 2025 Dr. Katalina Velazquez MD Referring Provider Active Start: January 29, 2025 End: January 29, 2025 Team Status: Inactive Member Role/Relationship Status Dates Dr. Katalina Velazquez MD Primary Care Provider Active Start: February 13, 2025 End: February 13, 2025 Dr. Katalina Velazquez MD Referring Provider Active Start: February 13, 2025 End: February 13, 2025 Dr. Austin Avina MD Attending Provider Active Sta rt: February 13, 2025 End: February 13, 2025 Team Status: Inactive Member Role/Relationship Status Dates Dr. Katalina Velazquez MD Primary Care Provider Active Start: March 28, 2025 End: March 28, 2025 Dr. Katalina Velazquez MD Referring Provider Active Start: March 28, 2025 End: March 28, 2025 Hiren DECKER PA Attending Provider Active Start: March 28, 2025 End: March 28, 2025 Team Status: Inactive Member Role/Relationship Status Dates Dr. Katalina Velazquez MD Primary Care Provider Active Start: March 28, 2025 End: March 28, 2025 Hiren Awad PA PA Attending Provider Active Start: March 28, 2025 End: March 28, 2025 Hiren Awad PA PA Referring Provider Active Start: March 28, 2025 End: March 28, 2025 Team Status: Inactive Member Role/Relationship Status Dates Dr. Katalina Velazquez MD Primary Care Provider Active Start: April 03, 2025 End: April 03, 2025 Dr. Katalina Velazquez MD Referring Provider Active Start: April 03, 2025 End: April 03, 2025 Sun Crandall CERTIFIED FAMILY MEDIATOR, CERTIFIED FAMILY MEDIATOR-C Attending Provider Active Start: April 03, 2025 End: April 03, 2025 Team Status: Inactive Member Role/Relationship Status Dates Dr. Katalina Velazquez MD Primary Care Provider Active Start: December 18, 2024 End: December 18, 2024 BRIANNE Thornton Attending Provider Active Star t: December 18, 2024 End: December 18, 2024 BRIANNE Thornton Referring Provider Active Star t: December 18, 2024 End: December 18, 2024 Team Status: Inactive Member Role/Relationship Status Dates Dr. Katalina Velazquez MD Primary Care Provider Active Start: December 28, 2024 End: December 28, 2024 BRIANNE Thornton Attending Provider Active Star t: December 28, 2024 End: December 28, 2024 BRIANNE Thornton Referring Provider Active Star t: December 28, 2024 End: December 28, 2024 Team Status: Active Member Role/Relationship Status Dates Dr. Katalina Velazquez MD Primary Care Provider Active Start: January 04, 2025 Dr. Radha Elias DO Emergency Provider Active Start: January 04, 2025 Dr. Makenzie Gonzáles MD Attending Provider Active Start: January 04, 2025 Team Status: Inactive Member Role/Relationship Status Dates Dr. Katalina Velazquez MD Primary Care Provider Active Start: January 04, 2025 End: January 05, 2025 Dr. Radha Elias DO Emergency Provider Active Start: January 04, 2025 End: January 05, 2025 Dr. Makenzie Gonzáles MD Admit Provider Active Star t: January 04, 2025 End: January 05, 2025 Dr. Makenzie Gonzáles MD Other Provider Active Star t: January 04, 2025 End: January 05, 2025 Dr. Parveen Mosqueda DO Attending Provider Active Start: January 04, 2025 End: January 05, 2025 Team Status: Active Member Role/Relationship Status Dates Dr. Katalina Velazquez MD Primary Care Provider Active Start: January 05, 2025 Dr. Radha Elias DO Emergency Provider Active Start: January 05, 2025 Dr. Makenzie Gonzáles MD Admit Provider Active Star t: January 05, 2025 Dr. Makenzie Gonzáles MD Other Provider Active Star t: January 05, 2025 Dr. Parveen Mosqueda DO Attending Provider Active Start: January 05, 2025 Dr. Parveen Mosqueda DO Other Provider Active S tart: January 05, 2025 Team Status: Inactive Member Role/Relationship Status Dates Dr. Katalina Velazquez MD Primary Care Provider Active Start: January 08, 2025 End: January 08, 2025 Dr. Parveen Mosqueda DO Attending Provider Active Start: January 08, 2025 End: January 08, 2025 Dr. Parveen Mosqueda DO Referring Provider Active Start: January 08, 2025 End: January 08, 2025 Team Status: Inactive Member Role/Relationship Status Dates Dr. Katalina Velazquez MD Primary Care Provider Active Start: January 19, 2025 End: January 19, 2025 Dr. Katalina Velazquez MD Referring Provider Active Start: January 19, 2025 End: January 19, 2025 BRIANNE Neely Attending Provider Active Star t: January 19, 2025 End: January 19, 2025 Team Status: Inactive Member Role/Relationship Status Dates Dr. Katalina Velazquez MD Primary Care Provider Active Start: January 19, 2025 End: January 19, 2025 Dr. Kishor Isabel MD Attending Provider Active S tart: January 19, 2025 End: January 19, 2025 Team Status: Inactive Member Role/Relationship Status Dates Dr. Katalina Velazquez MD Primary Care Provider Active Start: January 29, 2025 End: January 29, 2025 Dr. Katalina Velazquez MD Attending Provider Active Start: January 29, 2025 End: January 29, 2025 Dr. Katalina Velazquez MD Referring Provider Active Start: January 29, 2025 End: January 29, 2025 Team Status: Inactive Member Role/Relationship Status Dates Dr. Katalina Velazquez MD Primary Care Provider Active Start: January 29, 2025 End: January 29, 2025 Dr. Katalina Velazquez MD Attending Provider Active Start: January 29, 2025 End: January 29, 2025 Dr. Katalina Velazquez MD Referring Provider Active Start: January 29, 2025 End: January 29, 2025 Team Status: Inactive Member Role/Relationship Status Dates Dr. Katalina Velazquez MD Primary Care Provider Active Start: February 13, 2025 End: February 13, 2025 Dr. Katalina Velazquez MD Referring Provider Active Start: February 13, 2025 End: February 13, 2025 Dr. Austin Avina MD Attending Provider Active Sta rt: February 13, 2025 End: February 13, 2025 Team Status: Inactive Member Role/Relationship Status Dates Dr. Katalina Velazquez MD Primary Care Provider Active Start: March 28, 2025 End: March 28, 2025 Dr. Katalina Velazquez MD Referring Provider Active Start: March 28, 2025 End: March 28, 2025 Hiren DECKER PA Attending Provider Active Start: March 28, 2025 End: March 28, 2025 Team Status: Inactive Member Role/Relationship Status Dates Dr. Katalina Velazquez MD Primary Care Provider Active Start: March 28, 2025 End: March 28, 2025 Hiren DECKER PA Attending Provider Active Start: March 28, 2025 End: March 28, 2025 BRIANNE Gotti Referring Provider Active Start: March 28, 2025 End: March 28, 2025 Team Status: Inactive Member Role/Relationship Status Dates Dr. Katalina Velazquez MD Primary Care Provider Active Start: April 03, 2025 End: April 03, 2025 Dr. Katalina Velazquez MD Referring Provider Active Start: April 03, 2025 End: April 03, 2025 Sun Crandall CERTIFIED FAMILY MEDIATOR, CERTIFIED FAMILY MEDIATOR-C Attending Provider Active Start: April 03, 2025 End: April 03, 2025 Team Status: Inactive Member Role/Relationship Status Dates Dr. Katalina Velazquez MD Primary Care Provider Active Start: April 03, 2025 End: April 03, 2025 Sun Crandall CERTIFIED FAMILY MEDIATOR, CERTIFIED FAMILY MEDIATOR-C Attending Provider Active Start: April 03, 2025 End: April 03, 2025 Sun Crandall CERTIFIED FAMILY MEDIATOR, CERTIFIED FAMILY MEDIATOR-C Referring Provider Active Start: April 03, 2025 End: April 03, 2025 Team Status: Inactive Member Role/Relationship Status Dates Dr. Katalina Velazquez MD Primary Care Provider Active Start: January 19, 2025 End: January 19, 2025 Dr. Katalina Velazquez MD Referring Provider Active Start: January 19, 2025 End: January 19, 2025 BRIANNE Neely Attending Provider Active Star t: January 19, 2025 End: January 19, 2025 Team Status: Inactive Member Role/Relationship Status Dates Dr. Katalina Velazquez MD Primary Care Provider Active Start: January 19, 2025 End: January 19, 2025 Dr. Kishor Isabel MD Attending Provider Active S tart: January 19, 2025 End: January 19, 2025 Team Status: Inactive Member Role/Relationship Status Dates Dr. Katalina Velazquez MD Primary Care Provider Active Start: January 29, 2025 End: January 29, 2025 Dr. Katalina Velazquez MD Attending Provider Active Start: January 29, 2025 End: January 29, 2025 Dr. Katalina Velazquez MD Referring Provider Active Start: January 29, 2025 End: January 29, 2025 Team Status: Inactive Member Role/Relationship Status Dates Dr. Katalina Velazquez MD Primary Care Provider Active Start: January 29, 2025 End: January 29, 2025 Dr. Katalina Velazquez MD Attending Provider Active Start: January 29, 2025 End: January 29, 2025 Dr. Katalina Velazquez MD Referring Provider Active Start: January 29, 2025 End: January 29, 2025 Team Status: Inactive Member Role/Relationship Status Dates Dr. Katalina Velazquez MD Primary Care Provider Active Start: February 13, 2025 End: February 13, 2025 Dr. Katalina Velazquez MD Referring Provider Active Start: February 13, 2025 End: February 13, 2025 Dr. Austin Avina MD Attending Provider Active Sta rt: February 13, 2025 End: February 13, 2025 Team Status: Inactive Member Role/Relationship Status Dates Dr. Katalina Velazquez MD Primary Care Provider Active Start: March 28, 2025 End: March 28, 2025 Dr. Katalina Velazquez MD Referring Provider Active Start: March 28, 2025 End: March 28, 2025 BRIANNE Gotti Attending Provider Active Start: March 28, 2025 End: March 28, 2025 Team Status: Inactive Member Role/Relationship Status Dates Dr. Katalina Velazquez MD Primary Care Provider Active Start: March 28, 2025 End: March 28, 2025 BRIANNE Gotti Attending Provider Active Start: March 28, 2025 End: March 28, 2025 BRIANNE Gotti Referring Provider Active Start: March 28, 2025 End: March 28, 2025 Team Status: Inactive Member Role/Relationship Status Dates Dr. Katalina Velazquez MD Primary Care Provider Active Start: April 03, 2025 End: April 03, 2025 Sun Raz CERTIFIED FAMILY MEDIATOR, CERTIFIED FAMILY MEDIATOR-C Attending Provider Active Start: April 03, 2025 End: April 03, 2025 Sun Raz CERTIFIED FAMILY MEDIATOR, CERTIFIED FAMILY MEDIATOR-C Referring Provider Active Start: April 03, 2025 End: April 03, 2025 Team Status: Inactive Member Role/Relationship Status Dates Dr. Katalina Velazquez MD Primary Care Provider Active Start: April 03, 2025 End: April 03, 2025 Sun Raz CERTIFIED FAMILY MEDIATOR, CERTIFIED FAMILY MEDIATOR-C Attending Provider Active Start: April 03, 2025 End: April 03, 2025 Sun Raz CERTIFIED FAMILY MEDIATOR, CERTIFIED FAMILY MEDIATOR-C Referring Provider Active Start: April 03, 2025 End: April 03, 2025 Team Status: Inactive Member Role/Relationship Status Dates Dr. Katalina Velazquez MD Primary Care Provider Active Start: May 12, 2025 End: May 12, 2025 Dr. Dain Waller MD Emergency Provider Active S tart: May 12, 2025 End: May 12, 2025 FOR RECORDS PERTAINING TO PATIENTS WHO ARE [...] BE BASED ON THE PRIMARY CLINICAL RECORDS. [facility]. provides no warranty or guarantee of the accuracy or completeness of information in this document.
== END 2025-05-12 09:01 | disposition home or self-care (01) ==
PROVIDERS: Emergency Provider Emergency Medicine; PCP Internal Medicine; Visit Provider Emergency Medicine
DX: K08.89 Other specified disorders of teeth and supporting structures (principal); I25.10 Atherosclerotic heart disease of native coronary artery without angina pectoris; M54.9 Dorsalgia, unspecified; Z87.891 Personal history of nicotine dependence; G89.29 Other chronic pain; Z79.899 Other long term (current) drug therapy; F41.9 Anxiety disorder, unspecified; Z90.49 Acquired absence of other specified parts of digestive tract; Z90.710 Acquired absence of both cervix and uterus
CPT/HCPCS: 99282

== ENCOUNTER → 2025-07-03 | Outpatient (CLI) | payer MEDICARE, OTHER, SELFPAY ==
--- NOTE | 2025-07-03 12:25 | CT_ITS ---
PROCEDURE: CHEST WITHOUT CONTRAST 07/03/2025 REASON FOR EXAM: LEFT LUNG NODULE; ABNORMAL LDCT CHEST MARCH 2025 TECHNIQUE: Chest CT without contrast. Coronal and Sagittal reconstruction series were provided. One or more dose reduction techniques were used (e.g., Automated exposure control, adjustment of the mA and/or kV according to patient size, use of iterative reconstruction technique RADIATION DOSE SUMMARY: CTDlvol: 6.96 mGy DLP: 231.28 mGycm COMPARISON: Prior examination dated April 03, 2025. FINDINGS: Hardware: None Stable mild heterogeneous enlargement of the right lobe of the thyroid gland. Lymph nodes: No suspicious lymph nodes are seen. Heart and Vasculature: The heart is nonenlarged. Coronary Artery Calcifications: Present Lungs and Airways: Stable scarring at the lung apices. Linear scarring in the lingular segment of the left lower lobe. No definite nodule is seen at this time. Mild scarring at the right lung base. Pleura: No pleural effusion. Upper Abdomen: Unremarkable. Bones: Degenerative changes of the thoracic spine. CT/Chest without Contrast IMPRESSION: Coronary artery calcification (CAC) is is present No suspicious pulmonary nodule is seen at this time. Reading Location: [place] [id number]
--- NOTE | 2025-07-03 12:25 | CT_ITS ---
PROCEDURE: CHEST WITHOUT CONTRAST 07/03/2025 REASON FOR EXAM: LEFT LUNG NODULE; ABNORMAL LDCT CHEST MARCH 2025 TECHNIQUE: Chest CT without contrast. Coronal and Sagittal reconstruction series were provided. One or more dose reduction techniques were used (e.g., Automated exposure control, adjustment of the mA and/or kV according to patient size, use of iterative reconstruction technique RADIATION DOSE SUMMARY: CTDlvol: 6.96 mGy DLP: 231.28 mGycm COMPARISON: Prior examination dated April 03, 2025. FINDINGS: Hardware: None Stable mild heterogeneous enlargement of the right lobe of the thyroid gland. Lymph nodes: No suspicious lymph nodes are seen. Heart and Vasculature: The heart is nonenlarged. Coronary Artery Calcifications: Present Lungs and Airways: Stable scarring at the lung apices. Linear scarring in the lingular segment of the left lower lobe. No definite nodule is seen at this time. Mild scarring at the right lung base. Pleura: No pleural effusion. Upper Abdomen: Unremarkable. Bones: Degenerative changes of the thoracic spine. CT/Chest without Contrast IMPRESSION: Coronary artery calcification (CAC) is is present No suspicious pulmonary nodule is seen at this time. Reading Location: [place] [id number]
== END | disposition home or self-care (01) ==
LOC: CT 12:25
PROVIDERS: PCP Internal Medicine; Referring Provider Nurse Practitioner Family; Visit Provider Nurse Practitioner Family
DX: R91.1 Solitary pulmonary nodule (principal)
CPT/HCPCS: 71250